=== PATIENT | female | born 1960 | race Caucasian/White ===

== ENCOUNTER → 2018-02-02 17:36 | Outpatient (CLI) | payer MEDICARE, SELFPAY ==
--- NOTE | 2018-02-02 18:15 | MRI_ITS ---
STUDY: MRI LUMBAR SPINE WITHOUT CONTRAST REASON FOR EXAM: Female, 57 years old. Low back pain and left leg pain TECHNIQUE: Standardized fat and water weighted pulse sequences were obtained in the sagittal and axial planes. COMPARISON: 04/15/2017 FINDINGS: T12-L1: Normal endplates. Normal disc height, hydration and morphology. Normal bilateral facet joints. Normal central canal and bilateral lateral recesses. Normal bilateral intervertebral neural foramina. Normal lumbar lordosis. There is no substantial scoliosis. Normal conus medullaris that terminates at the L1 level. L1-2: Normal endplates. Normal disc height, hydration and morphology. Normal bilateral facet joints. Normal central canal and bilateral lateral recesses. Normal bilateral intervertebral neural foramina. L2-3: Normal endplates. Normal disc height, hydration and morphology. Normal bilateral facet joints. Normal central canal and bilateral lateral recesses. Normal bilateral intervertebral neural foramina. L3-4: Disc desiccation. Bulging annulus and bilateral facet and ligamentum flavum hypertrophy with facet joint effusions. Mild central canal stenosis. L4-5: Disc desiccation. Bulging annulus and bilateral facet and ligamentum flavum hypertrophy with facet joint effusions. Mild central canal and moderate bilateral foraminal stenoses, unchanged. L5-S1: Disc desiccation. Bulging annulus and bilateral facet hypertrophy without compressive sequelae. Normal visualized sacral ala. Normal visualized paraspinous soft tissue structures. MRI/Spine Lumbar (Routine) IMPRESSION: Stable multilevel degenerative disc and facet disease. Moderate bilateral foraminal stenoses at the L4-5 level. Electronically Signed: Noé Justice MD at 0:47 EDT Tel , Service support ,
== END ==
PROVIDERS: Family Provider Internal Medicine; PCP Internal Medicine; Visit Provider Anesthesiology Pain Medicine
DX: M54.9 Dorsalgia, unspecified (principal); M79.606 Pain in leg, unspecified
CPT/HCPCS: 72148

== ENCOUNTER 2019-05-06 22:09 | Emergency (ER) | payer MEDICARE, SELFPAY ==
[2019-05-06 22:10] VITALS: BP 115/79; PULSE 77; RESP 14; TEMP 35.8; O2SAT 100; BMI 36.2
--- NOTE | 2019-05-06 23:04 | ED.VIS.LOWEX ---
History of Present Illness Chief Complaint: Lower Extremity Injury Detail of Chief Complaint: lower extremity pain and rash, no injury Informant: Patient Onset: Days - 2 Context: Gradual Onset Timing: Continuous Quality of Pain: - - asymptomatic red rash Location: bilat lower legs Associated Symptoms: Parasthesia - chronic BLE due to neuropathy. Negative for: Weakness, Loss of Funtion Narrative: Patient states she has had gradual development of an asymptomatic red rash in both of her legs that was not there 3 days ago when she saw her doctor at a routine visit. She has a history of peripheral neuropathy in her lower extremities that she thinks may be related to chronic back issues, she is not a diabetic. She was on gabapentin for that, but was getting tired so she decreased the dosing. Within the past multiple weeks, her paresthesias and neuropathic pain have gradually worsened, so at her appointment 3 days ago they decided to go back up on her dosing although she has not done that yet. She states the pain is worse still in the past 2 days but more in her heels. It hurts more to walk and better at rest. She has had no injury. She is on no anticoagulants or aspirin, she used to be anticoagulated for pulmonary embolus remotely. Never had a DVT. No recent injuries. Past Medical History - Allergies and Home Meds Allergies/Adverse Reactions: Allergies latex Allergy (Verified 05/06/19 22:32) Itching Penicillins Allergy (Verified 05/06/19 22:32) Hives Primary Care Physician: Jo-Ann López MD [Primary Care Provider] - Smoking Status: Current every day smoker Review of Systems General: Denies: Chills, Fever, Sweats Eyes: Denies: Visual changes - bilaterally, Diplopia ENT: Denies: Rhinorrhea, Sore throat Cardiovascular: Denies: Chest pain, Palpitations Respiratory: Denies: Dyspnea, Cough, Dyspnea on exertion Gastrointestinal: Denies: Abdominal pain, Nausea, Vomiting, Diarrhea, Melena, Hematochezia Genitourinary: Denies: Dysuria, Hematuria, Frequency Musculoskeletal: Reports: Extremity Pain. Denies: Neck pain, Back pain Skin: Reports: Rash. Denies: Abrasions, Wounds Neurological: Reports: Parasthesia. Denies: Headache, Weakness Hematologic: Denies: Easy bruising, Easy bleeding Physical Exam Vital Signs/Narrative: Vital Signs Temp Pulse Resp BP Pulse Ox 05/06/19 22:10 96.5 F L 77 14 115/79 100 Inital Vital Signs reviewed: Yes - Extremity Exam Right Foot: - - Normal-appearing plantar area. Mild tenderness throughout plantar hindfoot, normal-appearing. Left Foot: - - Normal-appearing plantar area. Mild tenderness throughout plantar hindfoot, normal-appearing. General: Well nourished, Well developed Head: Normocephalic, Atraumatic Eyes: Perrl, EOMI ENT: No Trauma, Moist Mucous Membranes Neck: Nontender, Full ROM Cardiovascular: Regular rate, Regular rhythm, No murmurs Respiratory: No distress, CTA bilaterally, Chest nontender Abdomen: Soft, Nontender, Nondistended, Normal bowel sounds. Negative for: Hepatomegaly, Splenomegaly Back: Nontender Skin: Normal color, No Trauma, Rash - circumfirential band of nontender, nonraised petechiae around both lower legs just above ankles, similar appearing on both legs. no other lesions, no wounds or signs of infection or lymphangitis. Neurological: Alert, Oriented x3, Cranial nerves II-XII grossly intact, Normal Strength, Normal Gait, Parasthesia - distal BLE Psychological: Normal affect, Normal Mood Diagnostic/Tx/Re-eval Laboratory Tests 05/06/19 05/06/19 05/06/19 Range/Units 23:15 23:15 23:15 WBC (4.4-11.0) K/mm3 RBC (4.2-5.4) M/mm3 Hgb (12.0-15.0) g/dl Hct (37-47) % MCV (81-99) fL MCH (27.0-32.0) pg MCHC (32-36) g/gl RDW (11.6-14.6) % RDW Differential (35.1-43.9) fl Plt Count (150-450) K/mm3 MPV (6.2-12.0) fl Immature Gran % (Auto) (0.0-0.9) % Neut % (Auto) (47-70) % Lymph % (Auto) (19-41) % [place] % (Auto) (0-10) % Eos % (Auto) (0-5) % Baso % (Auto) (0-1) % Absolute Neuts (auto) (2.0-7.7) X10^3/uL Absolute Lymphs (auto) (0.83-4.51) X10^3/ul Total Counted ESR 2 (0-30) mm/hr PT 12.8 (11.7-14.9) SECONDS INR 1.0 APTT 28.7 (24.1-36.2) Seconds Sodium 142 (136-145) mmol/L Potassium 3.3 L (3.5-5.1) mmol/L Chloride 115 H (98-107) mmol/L Carbon Dioxide 22.0 (21.0-32.0) mmol/L Anion Gap 5 (5-15) BUN 17 (7-18) mg/dL Creatinine 0.71 (0.55-1.02) mg/dL Estim Creat Clear Calc 68.31 ml/min Est GFR (MDRD) Af Amer 109 (>60) mL/min Est GFR (MDRD) Non-Af 90 (>60) mL/min BUN/Creatinine Ratio 24.0 H (10-20) RATIO Glucose 127 H (74-106) mg/dL Calcium 8.4 L (8.5-10.1) mg/dL Total Bilirubin 0.30 (0.20-1.00) mg/dL AST 16 (15-37) U/L ALT 24 (13-56) U/L Alkaline Phosphatase 62 (45-117) U/L Total Protein 6.3 L (6.4-8.2) g/dL Albumin 3.4 (3.2-5.0) g/dL Globulin 2.9 (2.2-4.2) g/dL Albumin/Globulin Ratio 1.2 (0.9-2.4) RATIO // Range/Units 23:15 WBC 10.0 (4.4-11.0) K/mm3 RBC 3.67 L (4.2-5.4) M/mm3 Hgb 11.4 L (12.0-15.0) g/dl Hct 33.9 L (37-47) % MCV 92.4 (81-99) fL MCH 31.1 (27.0-32.0) pg MCHC 33.6 (32-36) g/gl RDW 13.7 (11.6-14.6) % RDW Differential 45.6 H (35.1-43.9) fl Plt Count 208 (150-450) K/mm3 MPV 10.1 (6.2-12.0) fl Immature Gran % (Auto) 0.200 (0.0-0.9) % Neut % (Auto) 69.1 (47-70) % Lymph % (Auto) 23.2 (19-41) % [place] % (Auto) 4.6 (0-10) % Eos % (Auto) 2.5 (0-5) % Baso % (Auto) 0.4 (0-1) % Absolute Neuts (auto) 6.9 (2.0-7.7) X10^3/uL Absolute Lymphs (auto) 2.33 (0.83-4.51) X10^3/ul Total Counted Not Reportable ESR (0-30) mm/hr PT (11.7-14.9) SECONDS INR APTT (24.1-36.2) Seconds Sodium (136-145) mmol/L Potassium (3.5-5.1) mmol/L Chloride (98-107) mmol/L Carbon Dioxide (21.0-32.0) mmol/L Anion Gap (5-15) BUN (7-18) mg/dL Creatinine (0.55-1.02) mg/dL Estim Creat Clear Calc ml/min Est GFR (MDRD) Af Amer (>60) mL/min Est GFR (MDRD) Non-Af (>60) mL/min BUN/Creatinine Ratio (10-20) RATIO Glucose (74-106) mg/dL Calcium (8.5-10.1) mg/dL Total Bilirubin (0.20-1.00) mg/dL AST (15-37) U/L ALT (13-56) U/L Alkaline Phosphatase (45-117) U/L Total Protein (6.4-8.2) g/dL Albumin (3.2-5.0) g/dL Globulin (2.2-4.2) g/dL Albumin/Globulin Ratio (0.9-2.4) RATIO - Medical Decision Making Given that the rash is petechial, I obtained labs which are reassuring. Her platelets and coags are all normal with platelet count of 208. With detailed history, she has not been wearing any pants or boots/shoes or anything else that would be hugging the affected areas tightly that she can think of. She currently wearing pants with elastic bottoms however they stopped just below her knees where she does not have a rash. Given that these labs were normal I added ESR, it returned at 2, essentially ruling out acute vasculitis. Therefore I do not think prednisone will necessarily help with this. Also, there is no clinical evidence or suspicion or symptoms for that matter, of meningitis. She has no splinter hemorrhages under her nails or Osler's node, she has not used IV drugs. I recommend close outpatient follow-up. She was asking for something for pain for her neuropathic pain. She has had no injury to her heels near normal-appearing and no radiography is necessary. She has no nidus for infection on the bottoms of her feet. I gave her an extra gabapentin dose and she is asking for Toradol, give her a dose and advised that she watch for any worsening of the rash and follow-up and she is comfortable with the plan. ED Disposition - Plan for ED Patient: Disposition: Home or Assisted Living Diagnosis: Petechial rash, Neuropathic pain of both feet Instructions: PETECHIAE (Child), NEUROPATHY, Peripheral Referrals: Jo-Ann López MD [Primary Care Provider] - 3-5 Days if not improving
[2019-05-06] MEDS: Gabapentin 300 MG Capsule PO (23:21)
[2019-05-06 23:25] LABS: Absolute Lymphocyte Count 2.33 X10^3/ul (0.83-4.51); Absolute Neutrophil Count 6.9 X10^3/uL (2.0-7.7); Basophil# 0.04 X10^3/uL; Basophil% 0.4 % (0-1); Eosinophil# 0.25 X10^3/uL; Eosinophils% 2.5 % (0-5); Hematocrit 33.9 % (37-47); Hemoglobin 11.4 g/dl (12.0-15.0); Lymphocyte # 2.33 X10^3/ul (4.0); Lymphocyte % 23.2 % (19-41); Mean Corp Hgb Conc 33.6 g/gl (32-36); Mean Corpuscular Hgb 31.1 pg (27.0-32.0); Mean Corpuscular Volume 92.4 fL (81-99); Mean Platelet Vol. 10.1 fl (6.2-12.0); Monocyte# 0.46 X10^3/uL; Monocyte% 4.6 % (0-10); Neutrophil # 6.94 X10^3/uL (2.7-7.7); Neutrophil % 69.1 % (47-70); Platelet Count 208 K/mm3 (150-450); RBC Distribution Width CV 13.7 % (11.6-14.6); RBC Distribution Width SD 45.6 fl (35.1-43.9); Red Blood Count 3.67 M/mm3 (4.2-5.4)
[2019-05-06 23:26] LABS: POSITIVE COUNT NO; POSITIVE DIFFERENTIAL NO; POSITIVE MORPHOLOGY NO
[2019-05-06 23:32] LABS: Partial Thromboplast Time 28.7 Seconds (24.1-36.2); Prothrombin Time (Protime)PT. 12.8 SECONDS (11.7-14.9)
[2019-05-06 23:42] LABS: ALB/GLOB Ratio 1.2 RATIO (0.9-2.4); AST(SGOT) 16 U/L (15-37); Alanine Aminotransfer ALT/SGPT 24 U/L (13-56); Albumin, Serum 3.4 g/dL (3.2-5.0); Alkaline Phosphatase 62 U/L (45-117); Anion Gap 5 (5-15); BUN 17 mg/dL (7-18); Calcium,Total 8.4 mg/dL (8.5-10.1); Chloride 115 mmol/L (98-107); Creatinine, Serum 0.71 mg/dL (0.55-1.02); EST Glomerular Filtration Rate 90 mL/min (>60); Est Glom Filt Rate - Afr Amer 109 mL/min (>60); Estimated Creatinine Clearance 68.31 ml/min; Globulin 2.9 g/dL (2.2-4.2); Glucose 127 mg/dL (74-106); Potassium 3.3 mmol/L (3.5-5.1); Protein, Total 6.3 g/dL (6.4-8.2); Sodium Level 142 mmol/L (136-145)
[2019-05-06 23:45] LABS: Erythrocyte Sedimentation Rate 2 mm/hr (0-30)
[2019-05-06 23:59] VITALS: BP 112/75; PULSE 74; RESP 18; O2SAT 98
[2019-05-07] MEDS: Ketorolac 60 MG/2 ML Vial IM (00:15)
== END 2019-05-07 00:37 | disposition home or self-care (01) ==
PROVIDERS: Emergency Provider Emergency Medicine; Family Provider Internal Medicine; PCP Internal Medicine
DX: R23.3 Spontaneous ecchymoses (principal); G58.8 Other specified mononeuropathies; G62.9 Polyneuropathy, unspecified; F17.200 Nicotine dependence, unspecified, uncomplicated; Z79.899 Other long term (current) drug therapy
CPT/HCPCS: 80053; 85025; 85610; 85652; 85730; 96372; 99283

== ENCOUNTER 2019-09-16 06:45 | Emergency (ER) | payer OTHER, SELFPAY ==
[2019-09-16 06:45] VITALS: BP 113/57; PULSE 86; RESP 18; TEMP 36.3; O2SAT 97; BMI 35.9
--- NOTE | 2019-09-16 06:53 | RAD_ITS ---
STUDY: X-RAY - RIGHT KNEE REASON FOR EXAM: Joint pain with weightbearing, injury. TECHNIQUE: 4 view(s) of the knee. COMPARISON: None. FINDINGS: Normal visualized distal femur. Normal visualized proximal tibia and fibula. Normal proximal tibiofibular articulation. Normal medial femorotibial compartment. Normal lateral femorotibial compartment. Normal patellofemoral articulation. There is a very small soft tissue calcification anterior to the proximal tibia. RAD/Knee 4 or More Views IMPRESSION: No demonstrated fracture. Electronically Signed: Jos Ball MD at 7:55 EST Tel , Service support ,
--- NOTE | 2019-09-16 06:53 | ED.DCSUM_ITS ---
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 No other injury. Pain radiates to her hip. Able to ambulate after the injury but with pain in her right knee. - Past Medical History (1) Chronic low back pain Status: Chronic (2) recovered alcoholic Status: Chronic Past Medical History - Allergies and Home Meds Allergies/Adverse Reactions: Allergies latex Allergy (Verified 09/16/19 06:56) Itching Penicillins Allergy (Verified 09/16/19 06:56) Hives Primary Care Physician: [facility] [GROUP OF PHYSICIANS] - 2 Days Smoking Status: Current every day smoker Drugs: None Review of Systems Musculoskeletal: Reports: Extremity Pain. Denies: Neck pain, Swelling Skin: Denies: Rash, Wounds Neurological: Denies: Weakness, Numbness Physical Exam Vital Signs/Narrative: Vital Signs Temp Pulse Resp BP Pulse Ox 09/16/19 06:45 97.3 F L 86 18 113/57 L 97 Inital Vital Signs reviewed: Yes - Extremity Exam Right Hip: Negative for: Limited ROM - Full range of motion without any groin pain, no significant tenderness at the ASIS or greater trochanter. Right Knee: Limited ROM - Limited ability to bend at the knee. Mild diffuse swelling, difficult to assess for effusion; no deformity. All ligaments stable with short endpoints and no laxity on stressing including negative anterior and posterior drawer signs. Extensor mechanism is intact. Tender throughout the anterior aspect including the tibial tuberosity and the patella. No significant tenderness at the medial/lateral joint line. Right Ankle: Negative for: Limited ROM - Full range of motion, nontender General: Well nourished, Well developed, - - NAD Head: Normocephalic, Atraumatic Skin: Normal color, No rash, No Trauma - skin intact R knee Neurological: Alert, Oriented x3, Cranial nerves II-XII grossly intact, Normal Strength, Normal Sensation Psychological: Normal affect, Normal Mood Diagnostic/Tx/Re-eval - Medical Decision Making On my interpretation, x-rays are negative for any fracture or acute abnormality. She was given an Herman wrap, Naprosyn, she is ambulatory, and given appropriate work restrictions and follow-up. ED Disposition - Plan for ED Patient: Disposition: Home or Assisted Living Diagnosis: Contusion of right knee Instructions: CONTUSION, Lower Extremity Referrals: [facility] [GROUP OF PHYSICIANS] - 2 Days
[2019-09-16] MEDS: Naproxen 500 MG Tablet PO (06:59)
== END 2019-09-16 08:19 | disposition home or self-care (01) ==
LOC: ED 07:12
PROVIDERS: Emergency Provider Emergency Medicine; Family Provider Internal Medicine; PCP Internal Medicine
DX: S80.01XA Contusion of right knee, initial encounter (principal); M54.5 Low back pain; G89.29 Other chronic pain; Z79.899 Other long term (current) drug therapy; F17.200 Nicotine dependence, unspecified, uncomplicated; W01.0XXA Fall on same level from slipping, tripping and stumbling without subsequent striking against object, initial encounter; Y93.01 Activity, walking, marching and hiking; Y92.89 Other specified places as the place of occurrence of the external cause; Y99.0 Civilian activity done for income or pay
CPT/HCPCS: 73564; 99282

== ENCOUNTER 2019-10-02 09:36 | Emergency (ER) | payer MEDICARE, SELFPAY ==
[2019-10-02 09:38] VITALS: BP 109/66; PULSE 80; RESP 17; TEMP 36.9; O2SAT 96; BMI 34.7
--- NOTE | 2019-10-02 10:06 | ED.VIS.GEN ---
History of Present Illness Chief Complaint: Back Informant: Patient Onset: Days - 3 or 4 days Context: Gradual Onset Timing: Waxes and wanes Current Severity: Moderate Maximum Severity: Moderate Narrative: Patient presents with bilateral lower back pain that radiates around to her groins for the past 3 or 4 days. She denies any known injury. She has had a history of back pain. Patient was concerned that she may have a kidney infection. She does report increased frequency and hazy color to her urine, but no dysuria. She has had no fever or chills. She does have a history of kidney stones. She states she chronically has blood noted in her urine. - Past Medical History (1) Kidney stone Status: Chronic (2) Pulmonary embolism Status: Chronic (3) COPD (chronic obstructive pulmonary disease) Status: Chronic (4) Asthma Status: Chronic (5) Chronic low back pain Status: Chronic Past Medical History - Allergies and Home Meds Allergies/Adverse Reactions: Allergies latex Allergy (Verified 10/02/19 09:37) Itching Penicillins Allergy (Verified 10/02/19 09:37) Hives Primary Care Physician: Jo-Ann López MD [Primary Care Provider] - Prior records reviewed: Yes Smoking Status: Current every day smoker Review of Systems General: Denies: Chills, Fever Eyes: Denies: Visual changes - bilaterally ENT: Denies: Bilateral ear pain Cardiovascular: Denies: Chest pain, Palpitations Respiratory: Denies: Dyspnea, Cough Gastrointestinal: Denies: Abdominal pain, Nausea, Vomiting, Diarrhea Genitourinary: Reports: Frequency Musculoskeletal: Reports: Back pain. Denies: Swelling, Extremity Pain Skin: Denies: Rash Neurological: Denies: Headache Psych: Denies: Depression Hematologic: Denies: Easy bruising Allergy: Denies: Uticaria Physical Exam Vital Signs/Narrative: Vital Signs Temp Pulse Resp BP Pulse Ox 10/02/19 09:38 98.5 F 80 17 109/66 96 Inital Vital Signs reviewed: Yes General: Well nourished, Well developed Head: Normocephalic ENT: Moist mucous membranes Cardiovascular: Regular rate, Regular rhythm Respiratory: No distress, CTA bilaterally Abdomen: Soft, Nontender Back: - - Tenderness in the lumbar paraspinal muscles bilaterally.. Negative for: CVA tenderness Extremities: Nontender Skin: Normal color, No rash Neurological: Alert, Oriented x3, Normal Strength, Normal Sensation Psychological: Normal affect Diagnostic/Tx/Re-eval Laboratory Results 10/02/19 10:13 Urine Color Yellow Urine Clarity Cloudy Urine pH 8.0 Ur Specific [place] 1.010 Urine Protein Negative Urine Glucose (UA) Normal Urine Ketones Negative Urine Occult Blood 50 H Urine Nitrite Negative Urine Bilirubin Negative Urine Urobilinogen Normal Ur Leukocyte Esterase 25 H Urine RBC 0-5 SEEN Urine WBC 0 SEEN Ur Squamous Epith Cells 0 SEEN Amorphous Sediment 2+ Urine Bacteria 0 SEEN Urine Mucus 0 SEEN - Medical Decision Making She was given 1 tab of [place] and Flexeril while here. On repeat evaluation she is resting comfortably. Test results are discussed with her. I do not see significant signs of urinary infection. She will continue her Mobic and will be given a prescription for Flexeril. This will be sent to pharmacy electronically, [facility] in [place]. ED Disposition - Plan for ED Patient: Disposition: Home or Assisted Living Diagnosis: Back pain Instructions: BACK PAIN (Acute or Chronic) Prescriptions: cycloBENZAPRine HCl [Flexeril] 10 mg PO TID PRN #20 tab PRN Reason: Muscle Spasm Transmission Status: Pending to [id number] Referrals: Jo-Ann López MD [Primary Care Provider] - 1 Week if not improving
[2019-10-02] MEDS: cycloBENZAPRine HCl 10 MG Tablet PO (10:15)
[2019-10-02] MEDS: HYDROcodone Bitartrate/Apap 5/325 Tablet PO (10:15)
[2019-10-02 10:20] LABS: Bacteria 0 SEEN /hpf (None Seen); Mucous, Urine 0 SEEN /hpf (<or=2+); Squamous Epithelial Cells - UA 0 SEEN /hpf (5-10); White Blood Cells 0 SEEN /hpf (0-5)
[2019-10-02 10:34] LABS: Color, Urine Yellow (Yellow); Glucose, Dipstick Normal (Normal); Ketone-Dipstick Negative (Negative); Leukocyte Esterase-Dipstick 25 /ul (Negative); Nitrite-Dipstick Negative (Negative); Occult Blood-Urine 50 /ul (Negative); Protein-Dipstick Negative (Negative); Urine Bilirubin Dipstick Negative (Negative); Urine Clarity Cloudy (Clear); Urine Urobilinogen Normal (Normal)
[2019-10-02 10:52] LABS: Amorphous Sediment 2+; Red Blood Cells-Urine 0-5 SEEN /hpf (0-5)
== END 2019-10-02 12:10 | disposition home or self-care (01) ==
PROVIDERS: Emergency Provider Emergency Medicine; Family Provider Internal Medicine; PCP Internal Medicine
DX: M54.5 Low back pain (principal); G89.29 Other chronic pain; J44.9 Chronic obstructive pulmonary disease, unspecified; F17.200 Nicotine dependence, unspecified, uncomplicated; Z87.442 Personal history of urinary calculi; Z86.711 Personal history of pulmonary embolism
CPT/HCPCS: 81001; 99284

== ENCOUNTER → 2019-10-21 08:15 | Outpatient (CLI) | payer OTHER, SELFPAY ==
[2019-10-02 09:38] VITALS: BMI 34.7
--- NOTE | 2019-10-21 08:15 | RAD_ITS ---
STUDY: X-RAY - RIGHT KNEE REASON FOR EXAM: Female, 59 years old. FALL, MEDIAL/ANTERIOR PAIN TECHNIQUE: 4 view(s) of the knee. COMPARISON: None. FINDINGS: Diffuse osteopenia otherwise normal visualized distal femur. Normal visualized proximal tibia and fibula. Normal proximal tibiofibular articulation. There is no demonstrated fracture. There is minimal degenerative arthrosis of the medial femorotibial compartment. Normal lateral femorotibial compartment. There is minimal degenerative arthrosis of the patellofemoral articulation. There is trace amount of joint effusion. The soft tissue structures are unremarkable. RAD/Knee 4 or More Views IMPRESSION: Diffuse osteopenia along with degenerative disease as described above. Trace amount of joint effusion. No acute fracture or subluxation. Electronically Signed: Soraya Hutchinson MD at 0:26 EST , Service support ,
== END ==
PROVIDERS: Family Provider Internal Medicine; PCP Internal Medicine; Referring Provider Physician Assistant; Visit Provider Physician Assistant
DX: S80.00XA Contusion of unspecified knee, initial encounter (principal)
CPT/HCPCS: 73564

== ENCOUNTER → 2019-11-04 06:19 | Outpatient (CLI) | payer OTHER, MEDICARE, SELFPAY ==
[2019-10-21 08:37] VITALS: BMI 34.7
--- NOTE | 2019-11-04 06:40 | MRI_ITS ---
STUDY: MRI RIGHT KNEE REASON FOR EXAM: Female, 59 years old. Injury. Fall. Knee pain. TECHNIQUE: Standardized fat and water weighted pulse sequences were obtained in all 3 orthogonal planes. COMPARISON: X-ray dated 10/21/2019. FINDINGS: Grade 4 cartilage loss at the patellar apex with associated 8 mm osteochondral lesion (axial image 11 series 2). Deep chondral fissure at the lateral patellar facet (axial image 12 series 2). Lateral compartment articular cartilage preserved. Medial compartment grade 3/4 cartilage loss. No acute fracture line. No dislocation. No bone distraction. Anterior proximal tibial bone contusion/edema (sagittal image 9 series 4). Lateral meniscus intact. Medial meniscus intact. Small volume joint effusion. No popliteal cyst. Mild swelling. Trace deep infrapatellar bursitis. Quadriceps tendon septated edema/impingement. Normal medial collateral ligamentous complex (MCL). Normal distal semimembranosus, gracilis and semitendinosus tendons. Normal proximal tibiofibular articulation. Normal lateral collateral (fibular) ligament. Normal popliteus tendon. Normal biceps femoris tendon. Normal anterior cruciate ligament (ACL). Normal posterior cruciate ligament (PCL). Normal medial and lateral patellar retinaculum. Normal quadriceps tendon. Normal patellar tendon. Normal Hoffa''s fat pad. MRI/Lower Ext Joint Only (Routine) IMPRESSION: Patellar apex cartilage loss with osteochondral lesion Lateral patellar facet chondral fissure Medial compartment moderate/severe cartilage loss Anterior proximal tibial bone contusion/edema Quadriceps tendon fat pad edema/impingement Small volume joint effusion, trace deep infrapatellar bursitis and mild swelling Electronically Signed: Israel Gallardo DO at 8:52 EST Tel , Service support ,
== END ==
PROVIDERS: Family Provider Internal Medicine; PCP Internal Medicine; Referring Provider Family Medicine; Visit Provider Family Medicine
DX: S80.01XA Contusion of right knee, initial encounter (principal)
CPT/HCPCS: 73721

== ENCOUNTER 2019-12-06 01:25 | Emergency (ER) | payer MEDICARE, SELFPAY ==
[2019-10-21 08:37] VITALS: BMI 34.7
[2019-12-06 01:26] VITALS: BP 113/59; PULSE 83; RESP 18; TEMP 36.2; O2SAT 98; BMI 38.7
--- NOTE | 2019-12-06 01:54 | ED.VIS.GEN ---
History of Present Illness Chief Complaint: Other, Pain/Inj Narrative: Patient is a 59-year-old female who presents with influenza-like symptoms. She complains of 4 days of neck, neck pain and stiffness, myalgias, sinus pressure and congestion, bilateral ear pressure and otalgia. She does not complain of sore throat, fever, cough, chest pain, shortness of breath, vomiting, diarrhea. Past Medical History - Allergies and Home Meds Allergies/Adverse Reactions: Allergies latex Allergy (Verified 10/02/19 09:37) Itching Penicillins Allergy (Verified 10/02/19 09:37) Hives Primary Care Physician: Jo-Ann López MD [Primary Care Provider] - Past Medical History: - - Asthma Smoking Status: Former smoker Review of Systems All systems negative except as indicated General: Denies: Fever Eyes: Denies: Visual changes - bilaterally ENT: Reports: - - Sinus pressure, otalgia. Denies: Sore throat Cardiovascular: Denies: Chest pain Respiratory: Denies: Dyspnea Gastrointestinal: Denies: Abdominal pain, Nausea, Vomiting, Diarrhea Musculoskeletal: Reports: Myalgias, Arthralgias, Neck pain Skin: Denies: Rash Neurological: Reports: Headache Physical Exam Vital Signs/Narrative: Vital Signs Temp Pulse Resp BP Pulse Ox 12/06/19 01:26 97.2 F L 83 18 113/59 L 98 Inital Vital Signs reviewed: Yes General: Well nourished, Well developed Head: Normocephalic, Atraumatic Eyes: EOMI ENT: Moist mucous membranes Neck: Supple, - - Bilateral paraspinal neck tenderness, no midline tenderness, no nuchal rigidity, no meningeal signs Cardiovascular: Regular rate, Regular rhythm Respiratory: No distress, CTA bilaterally Abdomen: Soft, Nontender Skin: Normal color Neurological: Alert, Oriented x3, Normal Strength, Normal Sensation Psychological: Normal affect Diagnostic/Tx/Re-eval - Medical Decision Making Patient's presentation is most suggestive of influenza or another viral syndrome. She does not have meningeal signs. She has normal vitals. We discussed symptomatic care. Patient was given IM Toradol here and advised on supportive care at home. She is in agreement with this plan. She understands to return for new or worsening symptoms. ED Disposition - Plan for ED Patient: Disposition: Home or Assisted Living Diagnosis: Influenza-like illness Instructions: VIRAL SYNDROME (Adult) Referrals: Jo-Ann López MD [Primary Care Provider] -
[2019-12-06] MEDS: Ketorolac 60 MG/2 ML Vial IM (02:16)
== END 2019-12-06 02:49 | disposition home or self-care (01) ==
LOC: ED 02:05
PROVIDERS: Emergency Provider Emergency Medicine; PCP Internal Medicine; Referring Provider Internal Medicine
DX: J11.1 Influenza due to unidentified influenza virus with other respiratory manifestations (principal); J45.909 Unspecified asthma, uncomplicated; Z87.891 Personal history of nicotine dependence
CPT/HCPCS: 96372; 99282

== ENCOUNTER 2019-12-30 22:28 | Emergency (ER) | payer MEDICARE, SELFPAY ==
[2019-12-30 22:29] VITALS: BP 122/67; PULSE 87; RESP 18; TEMP 37.1; O2SAT 98; BMI 36.8
[2019-12-30] MEDS: Famotidine 200 MG/20 ML MDV 20 MG in 0.9% Normal Saline (Pres. free 8 ML 300 MG IV (23:14)
[2019-12-30] MEDS: Ondansetron 4 MG/2 ML Vial IV (23:15)
[2019-12-30 23:16] LABS: Absolute Lymphocyte Count 2.06 X10^3/uL (0.83-4.51); Absolute Neutrophil Count 2.7 X10^3/uL (2.0-7.7); Basophil# 0.03 X10^3/uL; Basophil% 0.6 % (0-1); Eosinophil# 0.15 X10^3/uL; Eosinophils% 2.8 % (0-5); Hematocrit 37.7 % (37-47); Lymphocyte # 2.06 X10^3/ul (4.0); Lymphocyte % 38.5 % (19-41); Mean Corp Hgb Conc 31.8 g/dL (32-36); Mean Corpuscular Hgb 29.3 pg (27.0-32.0); Mean Platelet Vol. 9.8 fl (6.2-12.0); Monocyte# 0.39 X10^3/uL; Monocyte% 7.3 % (0-10); NRBC Flagged by Analyzer 0 % (0-5); Neutrophil # 2.71 X10^3/uL (2.7-7.7); Neutrophil % 50.6 % (47-70); Platelet Count 201 K/mm3 (150-450); RBC Distribution Width CV 13.1 % (11.6-14.6); RBC Distribution Width SD 43.6 fl (35.1-43.9); White Blood Count 5.4 K/mm3 (4.4-11.0)
[2019-12-30] MEDS: Mag Hydrox/Al Hydrox/Simeth 30 ML UDC PO (23:16)
[2019-12-30] MEDS: 0.9% Normal Saline 1,000 ML 1000 ML IV (23:17)
--- NOTE | 2019-12-30 23:17 | ED.VIS.GI ---
History of Present Illness Chief Complaint: General Illness Narrative: Patient presenting secondary to a GI illness. Patient reports that over the last 4 to 5 days she has been having vomiting and diarrhea. She reports that she has had 3-4 episodes of vomiting per day, and 5-6 episodes of loose watery nonbloody non-mucousy diarrhea. She reports that she has been having body aches and subjective fevers. Today when she was vomiting she reports that she had a small amount of blood in her emesis. Patient denies any abdominal pain. She denies any sore throat cough. She denies any sick contacts, travel, recent antibiotic exposures or admissions to the hospital. Review of systems otherwise negative. Past Medical History - Allergies and Home Meds Allergies/Adverse Reactions: Allergies latex Allergy (Verified 12/30/19 22:28) Itching Penicillins Allergy (Verified 12/30/19 22:28) Hives Primary Care Physician: Jo-Ann López MD [Primary Care Provider] - Past Medical History: - - COPD, osteoarthritis Smoking Status: Former smoker Review of Systems All systems negative except as indicated General: Reports: Fever, Malaise Eyes: Denies: Visual changes - bilaterally, Diplopia ENT: Denies: Rhinorrhea, Sore throat Cardiovascular: Denies: Chest pain, Palpitations Respiratory: Denies: Dyspnea, Cough, Dyspnea on exertion Gastrointestinal: Reports: Nausea, Vomiting, Diarrhea Genitourinary: Denies: Dysuria, Hematuria, Frequency Musculoskeletal: Denies: Back pain, Extremity Pain Skin: Denies: Rash, Wounds Neurological: Denies: Headache, Weakness, Numbness Physical Exam Vital Signs/Narrative: Vital Signs Temp Pulse Resp BP Pulse Ox 12/30/19 22:29 98.8 F 87 18 122/67 H 98 Inital Vital Signs reviewed: Yes General: Well nourished, Well developed, No Acute Distress Head: Normocephalic, Atraumatic Eyes: Perrl, EOMI ENT: Moist mucous membranes, No rhinorrhea Neck: Supple, Nontender Cardiovascular: Regular rate, Regular rhythm, No murmurs Respiratory: No distress, CTA bilaterally, Chest nontender Abdomen: Soft, Nontender, Nondistended, Normal bowel sounds Back: Nontender, Normal Inspection Extremities: Nontender, No edema Skin: Normal color, No rash Neurological: Alert, Oriented x3, Cranial nerves II-XII grossly intact, Normal Strength, Normal Sensation Psychological: Normal affect, Normal Mood Diagnostic/Tx/Re-eval - Medical Decision Making Patient presented with a GI illness and concerns for some mild hematemesis. Patient was given Pepcid Zofran GI cocktail and fluids. CBC CMP lipase found to all be unremarkable with no evidence of electrolyte dyscrasias. Repeat evaluation showed the patient have symptomatic improvement. Patient likely has a prolonged GI illness at this point, I believe that she is still appropriate for discharge. She will be sent home with symptomatic treatment and expectant management instructions. Patient was discharged in stable condition. ED Disposition - Plan for ED Patient: Disposition: Home or Assisted Living Diagnosis: Gastritis Instructions: GASTRITIS (Adult) Prescriptions: Ondansetron [Zofran Odt] 4 mg PO Q8H PRN PRN #10 tab PRN Reason: Nausea Prescription Printed Referrals: Jo-Ann López MD [Primary Care Provider] - 3-5 Days if not improving
[2019-12-30 23:36] LABS: ALB/GLOB Ratio 1.1 RATIO (0.9-2.4); AST(SGOT) 19 U/L (15-37); Alanine Aminotransfer ALT/SGPT 33 U/L (13-56); Albumin, Serum 3.3 g/dL (3.2-5.0); Alkaline Phosphatase 65 U/L (45-117); Anion Gap 6 (5-15); BUN 16 mg/dL (7-18); BUN/Creat Ratio 17.7 RATIO (10-20); Calcium,Total 8.6 mg/dL (8.5-10.1); Chloride 113 mmol/L (98-107); EST Glomerular Filtration Rate 68 mL/min (>60); Est Glom Filt Rate - Afr Amer 82 mL/min (>60); Estimated Creatinine Clearance 55.68 ml/min; Globulin 3.1 g/dL (2.2-4.2); Glucose 95 mg/dL (74-106); Lipase 42 U/L (73-393); Potassium 3.6 mmol/L (3.5-5.1); Protein, Total 6.4 g/dL (6.4-8.2); Sodium Level 143 mmol/L (136-145)
[2019-12-31 00:39] VITALS: BP 115/78; PULSE 78; RESP 16; O2SAT 100
== END 2019-12-31 00:42 | disposition home or self-care (01) ==
PROVIDERS: Emergency Provider Emergency Medicine; PCP Internal Medicine
DX: K29.70 Gastritis, unspecified, without bleeding (principal); M19.90 Unspecified osteoarthritis, unspecified site; J44.9 Chronic obstructive pulmonary disease, unspecified; Z87.891 Personal history of nicotine dependence; Z79.1 Long term (current) use of non-steroidal anti-inflammatories (NSAID); Z79.51 Long term (current) use of inhaled steroids
CPT/HCPCS: 80053; 83690; 85025; 96361; 96374; 99284; J7030; A4216; J2405; J3490

== ENCOUNTER 2020-03-16 23:11 | Emergency (ER) | payer OTHER, MEDICARE, SELFPAY ==
[2020-03-16 23:11] VITALS: BP 141/60; PULSE 90; RESP 18; TEMP 36.8; O2SAT 98; BMI 36.6
--- NOTE | 2020-03-16 23:27 | ED.VIS.GEN ---
History of Present Illness Chief Complaint: Fall Informant: Patient Onset: Today Current Severity: Moderate Maximum Severity: Moderate Narrative: Patient presents after a fall at work tonight. 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 She states that wrapped around her ankle and tripped her. She fell forward landing on all fours. She is complaining of pain to both upper extremities, left knee, and over her sternum. She denies striking her head. She has not taken anything for pain. - Past Medical History (1) Asthma Status: Chronic (2) COPD (chronic obstructive pulmonary disease) Status: Chronic (3) Kidney stone Status: Chronic (4) Pulmonary embolism Status: Chronic Past Medical History - Allergies and Home Meds Allergies/Adverse Reactions: Allergies latex Allergy (Verified 03/16/20 23:14) Itching Penicillins Allergy (Verified 03/16/20 23:14) Hives Primary Care Physician: Jo-Ann López MD [Primary Care Provider] - Prior records reviewed: Yes Smoking Status: Former smoker Review of Systems General: Denies: Chills, Fever Eyes: Denies: Visual changes - bilaterally ENT: Denies: Bilateral ear pain Cardiovascular: Reports: Chest pain Respiratory: Denies: Dyspnea, Cough Gastrointestinal: Denies: Abdominal pain, Nausea, Vomiting, Diarrhea Genitourinary: Denies: Dysuria Musculoskeletal: Reports: Extremity Pain Skin: Reports: Rash Neurological: Denies: Headache Hematologic: Denies: Easy bruising, Easy bleeding Allergy: Denies: Uticaria Physical Exam Vital Signs/Narrative: Vital Signs Temp Pulse Resp BP Pulse Ox 03/16/20 23:11 98.3 F 90 18 141/60 H 98 Inital Vital Signs reviewed: Yes General: Well nourished, Well developed Head: Normocephalic ENT: Moist mucous membranes Neck: Supple, - - No C-spine tenderness. Cardiovascular: Regular rate, Regular rhythm Respiratory: No distress, CTA bilaterally, Chest tenderness - Reproducible chest tenderness of the lower sternum. Abdomen: Soft, Nontender Extremities: - - Mild muscular tenderness of the bilateral hands and upper humerus/shoulders. No obvious deformity. Good range of motion. Strong distal pulses. Tenderness palpation of the anterior left knee. Good range of motion. Strong distal pulses. Neurological: Alert, Oriented x3, Normal Strength, Normal Sensation Psychological: Normal affect Diagnostic/Tx/Re-eval Impressions Chest X-Ray 03/17/20 23:26 IMPRESSION: No acute cardiopulmonary disease. Electronically Signed: Soraya Hutchinson MD at 1:08 EDT , Service support , Hand X-Ray 03/17/20 23:26 IMPRESSION: Mild degenerative disease at the level of the hand with no acute fracture or subluxation. Electronically Signed: Soraya Hutchinson MD at 1:07 EDT , Service support , Knee X-Ray 03/17/20 23:26 IMPRESSION: Status postoperative changes as described. Mild degenerative disease with no acute fracture or subluxation. Trace amount of joint fluid. Electronically Signed: Soraya Hutchinson MD at 1:33 EDT , Service support , Shoulder X-Ray 03/17/20 23:26 IMPRESSION: Diffuse osteopenia along with mild degenerative disease. Otherwise normal x-ray examination of the shoulder. Electronically Signed: Soraya Hutchinson MD at 1:32 EDT , Service support , 03/17/20 23:25 Hand Min 3 Views [RAD] Stat 03/17/20 23:26 Chest PA and Lateral [RAD] Stat Hand Min 3 Views [RAD] Stat Knee 4 or More Views [RAD] Stat Shoulder min 2 Views [RAD] Stat Shoulder min 2 Views [RAD] Stat - Medical Decision Making Patient was given naproxen for pain. X-ray results are discussed with her. She is given work restrictions and is to follow-up with her [employer] [employer]. ED Disposition - Plan for ED Patient: Disposition: Home or Assisted Living Diagnosis: Chest wall contusion, Contusion, upper extremity, Contusion of left knee, Fall Instructions: ED EXTREMITY CONTUSION Lower, ED EXTREMITY CONTUSION Upper, ED Mechanical Fall, ED CHEST CONTUSION Prescriptions: Naproxen [Naprosyn] 500 mg PO BID PRN PRN #20 tab PRN Reason: Pain Score 4-10/10 Transmission Status: Pending to [facility] Referrals: [facility] [GROUP OF PHYSICIANS] - 2 Days
[2020-03-17] MEDS: Naproxen 500 MG Tablet PO (00:58)
[2020-03-17 01:53] VITALS: BP 146/86; PULSE 76; RESP 16; O2SAT 98
--- NOTE | 2020-03-17 23:25 | RAD_ITS ---
STUDY: X-RAY - LEFT HAND REASON FOR EXAM: Female, 59 years old. Tripped and fell on concrete. Pain hands, chest and knee. Hx of asthma, COPD and basal cell carcinoma TECHNIQUE: 3 view(s) of the hand. COMPARISON: None. FINDINGS: Diffuse osteopenia with mild degenerative disease of the radiocarpal articulation. Normal distal radioulnar joint. Normal visualized carpal bones. Normal carpal articulations Normal carpometacarpal articulation of the thumb. Normal second through fifth carpometacarpal joints. Normal metacarpi. There is mild degenerative arthrosis of the metacarpophalangeal (MCP) joints. Minimal degenerative disease of the interphalangeal joint of the thumb. Normal proximal and distal phalanges of the thumb. Normal metacarpophalangeal joints of the second through fifth fingers. Narrowing of the distal interphalangeal joints of the second through fifth fingers. Normal phalanges of the second through fifth fingers. The soft tissue structures are unremarkable. RAD/Hand Min 3 Views IMPRESSION: Diffuse osteopenia along with mild degenerative disease as described. No acute fracture or subluxation. Electronically Signed: Soraya Hutchinson MD at 1:07 EDT , Service support ,
--- NOTE | 2020-03-17 23:26 | RAD_ITS ---
STUDY: X-RAY - RIGHT HAND REASON FOR EXAM: Female, 59 years old. Tripped and fell on concrete. Pain hands, chest and knee. Hx of asthma, COPD and basal cell carcinoma TECHNIQUE: 3 view(s) of the hand. COMPARISON: None. FINDINGS: Diffuse osteopenia otherwise normal radiocarpal articulation. Normal distal radioulnar joint. Normal visualized carpal bones. Normal carpal articulations Normal carpometacarpal articulation of the thumb. Normal second through fifth carpometacarpal joints. Normal metacarpi. There is mild degenerative arthrosis of the metacarpophalangeal (MCP) joints. There is degenerative arthrosis of the interphalangeal joint of the thumb with articular joint space narrowing. Normal proximal and distal phalanges of the thumb. Normal metacarpophalangeal joints of the second through fifth fingers. Narrowing of the distal interphalangeal joints of the second through fifth fingers. Normal phalanges of the second through fifth fingers. The soft tissue structures are unremarkable. RAD/Hand Min 3 Views IMPRESSION: Mild degenerative disease at the level of the hand with no acute fracture or subluxation. Electronically Signed: Soraya Hutchinson MD at 1:07 EDT , Service support ,
--- NOTE | 2020-03-17 23:26 | RAD_ITS ---
STUDY: X-RAY - RIGHT SHOULDER REASON FOR EXAM: Female, 59 years old. Tripped and fell on concrete. Pain hands, chest and knee. Hx of asthma, COPD and basal cell carcinoma TECHNIQUE: 4 view(s) of the shoulder. COMPARISON: None. FINDINGS: There is mild degenerative arthrosis of the glenohumeral articulation. Normal acromioclavicular joint. Normal acromion. There is demineralization of the humerus and visualized osseous structures. The soft tissue structures are unremarkable. There is no demonstrated fracture. Normal visualized pulmonary apex. RAD/Shoulder min 2 Views IMPRESSION: Diffuse osteopenia along with mild degenerative disease. No acute fracture or subluxation. Electronically Signed: Soraya Hutchinson MD at 1:25 EDT , Service support ,
--- NOTE | 2020-03-17 23:26 | RAD_ITS ---
STUDY: X-RAY - LEFT KNEE REASON FOR EXAM: Female, 59 years old. Tripped and fell on concrete. Pain hands, chest and knee. Hx of asthma, COPD and basal cell carcinoma TECHNIQUE: 4 view(s) of the knee. COMPARISON: None. FINDINGS: Diffuse osteopenia otherwise normal visualized distal femur. Postoperative changes fixation screw through the lateral tibial plateau. Otherwise normal visualized proximal tibia. Status post resection of the upper aspect of the fibula otherwise visualized fibula is intact. No acute fracture seen. There is mild degenerative arthrosis of the medial femorotibial compartment. Normal lateral femorotibial compartment. There is mild to moderate degenerative arthrosis of the patellofemoral articulation. Trace amount of joint fluid. The soft tissue structures are unremarkable. RAD/Knee 4 or More Views IMPRESSION: Status postoperative changes as described. Mild degenerative disease with no acute fracture or subluxation. Trace amount of joint fluid. Electronically Signed: Soraya Hutchinson MD at 1:33 EDT , Service support ,
--- NOTE | 2020-03-17 23:26 | RAD_ITS ---
STUDY: X-RAY CHEST REASON FOR EXAM: Female, 59 years old. Tripped and fell on concrete. Pain hands, chest and knee. Hx of asthma, COPD and basal cell carcinoma TECHNIQUE: PA and lateral views of the chest. COMPARISON: 03/22/2016. FINDINGS: The lungs are normally expanded with the nonspecific mild fullness of markings in the right infrahilar region, stable and most likely related to confluence of markings. Otherwise lung murrell are clear. There is no demonstrated pleural abnormality. Normal size heart. Normal mediastinum and marissa. Normal visualized pulmonary arteries. Normal visualized aortic arch and descending thoracic aorta. There are diffuse degenerative changes of the visualized thoracic spine. There is degenerative osteoarthritis of the bilateral shoulders. There is no demonstrated abnormality of the visualized soft tissue structures of the upper abdomen. RAD/Chest PA and Lateral IMPRESSION: No acute cardiopulmonary disease. Electronically Signed: Soraya Hutchinson MD at 1:08 EDT , Service support ,
--- NOTE | 2020-03-17 23:26 | RAD_ITS ---
STUDY: X-RAY - LEFT SHOULDER REASON FOR EXAM: Female, 59 years old. Tripped and fell on concrete. Pain hands, chest and knee. Hx of asthma, COPD and basal cell carcinoma TECHNIQUE: 2 view(s) of the shoulder. COMPARISON: None. FINDINGS: There is mild degenerative arthrosis of the glenohumeral articulation. Normal acromioclavicular joint. Normal acromion. Normal humeral head and visualized proximal humerus. The soft tissue structures are unremarkable. There is no demonstrated fracture. Normal visualized pulmonary apex. RAD/Shoulder min 2 Views IMPRESSION: Diffuse osteopenia along with mild degenerative disease. Otherwise normal x-ray examination of the shoulder. Electronically Signed: Soraya Hutchinson MD at 1:32 EDT , Service support ,
== END 2020-03-17 01:53 | disposition home or self-care (01) ==
PROVIDERS: Emergency Provider Emergency Medicine; PCP Internal Medicine
DX: S20.219A Contusion of unspecified front wall of thorax, initial encounter (principal); S80.02XA Contusion of left knee, initial encounter; S40.022A Contusion of left upper arm, initial encounter; S40.021A Contusion of right upper arm, initial encounter; J44.9 Chronic obstructive pulmonary disease, unspecified; Z86.711 Personal history of pulmonary embolism; Z87.442 Personal history of urinary calculi; Z87.891 Personal history of nicotine dependence; W18.09XA Striking against other object with subsequent fall, initial encounter; Y93.01 Activity, walking, marching and hiking; Y92.89 Other specified places as the place of occurrence of the external cause; Y99.0 Civilian activity done for income or pay
CPT/HCPCS: 71046; 73030; 73130; 73564; 99283

== ENCOUNTER 2020-03-21 03:48 | Emergency (ER) | payer OTHER, SELFPAY ==
[2020-03-19 12:51] VITALS: BMI 36.6
[2020-03-21 03:50] VITALS: BP 126/60; PULSE 97; RESP 18; TEMP 36.6; O2SAT 99; BMI 36.6
--- NOTE | 2020-03-21 04:10 | ED.VIS.GEN ---
History of Present Illness Chief Complaint: Fall Informant: Patient Onset: Days - 4 Context: Sudden Onset Timing: Continuous Quality: sore/ache Location: left upper chest/anterior axilla Current Severity: Severe Maximum Severity: Severe Worsened by: moving LUE Relieved by: remaining still Associated Symptoms: LUE pain. none other. Narrative: Patient had a fall at work, she was seen here just afterwards about 4 days ago, she returns for persistent significant discomfort. She has no new symptoms. She describes to me her foot getting tangled up in some plastic wrapping that goes around stacks of cardboard, causing her to fall forward to the ground catching herself with her hands and her left knee. Her left knee was x-rayed and negative for fracture, she states that is not bothering her anymore and doing better. X-rays of the chest and left upper extremity were all negative. She states that the main issue is her left upper chest. It is limiting movement of the shoulder girdle because of pain, sitting up and forward makes it hurt. She does not have any shortness of breath or pleuritic discomfort that is major. She denies any new symptoms. She saw her PCP, but she has not followed up with [facility]. - Past Medical History (1) Asthma Status: Chronic (2) COPD (chronic obstructive pulmonary disease) Status: Chronic (3) Chronic low back pain Status: Chronic (4) Kidney stone Status: Chronic (5) Pulmonary embolism Status: Chronic (6) recovered alcoholic Status: Chronic (7) Lymphedema Status: Chronic (8) Mitral valve prolapse Status: Chronic Past Medical History - Allergies and Home Meds Allergies/Adverse Reactions: Allergies latex Allergy (Verified 03/21/20 03:49) Itching Penicillins Allergy (Verified 03/21/20 03:49) Hives Primary Care Physician: Jo-Ann López MD [Primary Care Provider] - Smoking Status: Former smoker Review of Systems General: Denies: Chills, Fever, Sweats Eyes: Denies: Visual changes - bilaterally, Diplopia ENT: Denies: Rhinorrhea, Sore throat Cardiovascular: Reports: Chest pain. Denies: Palpitations Respiratory: Denies: Dyspnea, Cough, Dyspnea on exertion Gastrointestinal: Denies: Abdominal pain, Nausea, Vomiting, Diarrhea, Melena, Hematochezia Genitourinary: Denies: Dysuria, Hematuria, Frequency Musculoskeletal: Reports: Back pain - Chronic, mild, unchanged, Swelling - Chronic both legs, unchanged, Extremity Pain. Denies: Neck pain Skin: Denies: Rash, Wounds Neurological: Denies: Headache, Weakness, Numbness Physical Exam Vital Signs/Narrative: Vital Signs Temp Pulse Resp BP Pulse Ox 03/21/20 03:50 97.8 F 97 18 126/60 H 99 Inital Vital Signs reviewed: Yes General: Well nourished, Well developed, Obese, No Acute Distress Head: Normocephalic, Atraumatic Eyes: Perrl, EOMI ENT: Moist mucous membranes, No rhinorrhea Neck: Supple, Nontender Cardiovascular: Regular rate, Regular rhythm, No murmurs. Negative for: Tachycardia Respiratory: No distress, CTA bilaterally, Chest tenderness - Left upper chest, fairly superficially. Normal skin exam. Also tender into the anterior aspect of the axilla, basically at the tendon of the pectoral musculature. Abdomen: Soft, Nontender, Nondistended, Normal bowel sounds Extremities: Nontender - With regard to the left upper extremity, has limited abduction of the left shoulder due to pain in the chest wall, however there is no bony tenderness of the left upper extremity at this time, no subacromial tenderness, no posterior arm/shoulder tenderness including the teres musculature. No clavicle or acromioclavicular joint tenderness. Skin: Normal color, No rash, No Trauma Neurological: Alert, Oriented x3, Cranial nerves II-XII grossly intact, Normal Strength, Normal Sensation, Normal Gait Psychological: Normal affect, Normal Mood Diagnostic/Tx/Re-eval - Medical Decision Making I reviewed the x-ray reports from her imaging 4 days ago. I do not think there is any reason to repeat this imaging. She wants to know if she tore a muscle. As I discussed with her, since she did not sustain a broken wrist or radial head or elbow dislocation or shoulder bony injury, all of which would be more likely to occur then a pectoral muscular tear, I suspect the answer is no but that is certainly in the differential diagnosis generally speaking. I do not have the ability to do a stat MRI for this reason however. I do not think a CT is indicated for any reason. Certainly consistent with muscular pain, strain versus tear are certainly possibilities. I would not expect her pain to be gone by now it is only been 4 days. I discussed that with her, I would recommend supportive care at this time. She does not splint on deep inspiration so I do not think she has a pneumothorax or any internal injury. She is given Norflex, Toradol, tramadol, a short prescription for tramadol and advised to follow-up with [facility]. ED Disposition - Plan for ED Patient: Disposition: Home or Assisted Living Diagnosis: Injury of muscle of chest wall Instructions: Treating?Strains and Sprains Prescriptions: traMADol [Ultram] 50 mg PO Q4H PRN PRN 2 Days #12 tablet PRN Reason: Pain Transmission Status: Received by [facility] Referrals: Jo-Ann López MD [Primary Care Provider] - [facility] [GROUP OF PHYSICIANS] - As soon as possible (call for appt)
[2020-03-21] MEDS: traMADol 50 MG Tablet PO (04:18)
[2020-03-21] MEDS: Orphenadrine 60 MG/2 ML Ampul IM (04:19)
[2020-03-21] MEDS: Ketorolac 30 MG/ML Syringe IM (04:19)
== END 2020-03-21 04:43 | disposition home or self-care (01) ==
LOC: ED 04:28
PROVIDERS: Emergency Provider Emergency Medicine; PCP Internal Medicine
DX: S29.9XXA Unspecified injury of thorax, initial encounter (principal); W18.30XA Fall on same level, unspecified, initial encounter; J44.9 Chronic obstructive pulmonary disease, unspecified; G89.29 Other chronic pain; M54.9 Dorsalgia, unspecified; F10.21 Alcohol dependence, in remission; Z87.891 Personal history of nicotine dependence; Z86.711 Personal history of pulmonary embolism; Z87.442 Personal history of urinary calculi; Z79.899 Other long term (current) drug therapy
CPT/HCPCS: 96372; 99283

== ENCOUNTER 2020-03-28 06:11 | Emergency (ER) | payer OTHER, MEDICARE, SELFPAY ==
[2020-03-27 12:51] VITALS: BMI 36.6
[2020-03-28 06:12] VITALS: BP 123/76; PULSE 96; RESP 16; TEMP 36.5; O2SAT 99; BMI 268.2
--- NOTE | 2020-03-28 06:26 | ED.DCSUM_ITS ---
History of Present Illness Chief Complaint: Upper Extremity Injury Narrative: Patient is a 59-year-old female who had a fall almost 2 weeks ago. She fell onto outstretched arms. She has been seen multiple times in the emergency department and at the urgent care by [facility]. She has had previous x- rays. She has been treated with naproxen, tramadol, Flexeril. She continues to have pain in her left shoulder. She actually is scheduled for an MRI on . She states she was seen yesterday and discussed that her pain was not adequately controlled and had asked for a shot of Toradol but they were unable to do so there. She was told if her pain continued to be reevaluated here in the emergency department. She denies numbness tingling or weakness. She denies medical history such as diabetes hypertension hyperlipidemia. Past Medical History - Allergies and Home Meds Allergies/Adverse Reactions: Allergies latex Allergy (Verified 03/28/20 06:16) Itching Penicillins Allergy (Verified 03/28/20 06:16) Hives Primary Care Physician: Jo-Ann López MD [Primary Care Provider] - Past Medical History: None Smoking Status: Never smoker Review of Systems All systems negative except as indicated General: Denies: Fever Eyes: Denies: Visual changes - bilaterally ENT: Denies: Bilateral ear pain Cardiovascular: Denies: Chest pain Respiratory: Denies: Dyspnea Gastrointestinal: Denies: Abdominal pain Musculoskeletal: Reports: Extremity Pain Skin: Denies: Rash Neurological: Denies: Headache Hematologic: Denies: Easy bleeding Allergy: Denies: Uticaria Physical Exam Vital Signs/Narrative: Vital Signs Temp Pulse Resp BP Pulse Ox 03/28/20 06:12 97.7 F L 96 16 123/76 H 99 Inital Vital Signs reviewed: Yes General: Well nourished Head: Normocephalic Eyes: EOMI ENT: Moist mucous membranes Neck: Supple Cardiovascular: Regular rate Respiratory: No distress Abdomen: Soft Extremities: - - Left upper extremity is in sling she has normal sensation in the hands she does have some tenderness along the anterior left shoulder no deformity Skin: Normal color Neurological: Alert Psychological: Normal affect Diagnostic/Tx/Re-eval - Medical Decision Making Patient has been evaluated multiple times for her left shoulder pain and is scheduled for an MRI for further evaluation. She states she is really just here for pain control and was requesting Toradol stating I am not here for drugs or anything like that. She was given intramuscular Toradol and discharged. ED Disposition - Plan for ED Patient: Disposition: Home or Assisted Living Diagnosis: Left shoulder pain Instructions: ED Shoulder Pain Uncertain Cause Referrals: Jo-Ann López MD [Primary Care Provider] -
[2020-03-28] MEDS: Ketorolac 60 MG/2 ML Vial IM (06:32)
[2020-03-28 06:51] VITALS: BP 134/83; PULSE 77; RESP 18; O2SAT 98
== END 2020-03-28 07:04 | disposition home or self-care (01) ==
LOC: ED 07:03
PROVIDERS: Emergency Provider Emergency Medicine; PCP Internal Medicine
DX: M25.512 Pain in left shoulder (principal)
CPT/HCPCS: 96372; 99282

== ENCOUNTER → 2020-03-29 | Outpatient (CLI) | payer OTHER, SELFPAY ==
[2020-03-22 07:22] VITALS: BMI 36.6
[2020-03-28 06:12] VITALS: BMI 268.2
--- NOTE | 2020-03-29 06:40 | MRI_ITS ---
STUDY: MRI LEFT SHOULDER REASON FOR EXAM: Shoulder pain after a fall 03/16/2020. TECHNIQUE: Standardized fat and water weighted pulse sequences were obtained in all 3 orthogonal planes. COMPARISON: Radiographs 03/17/2020. FINDINGS: There is mild supraspinatus tendinosis (T2 coronal images 7, 8) without discrete tendon tear. Normal infraspinatus tendon. There is mild subscapularis tendinosis (proton density axial image 12) without discrete tendon tear. Normal teres minor tendon. Normal supraspinatus muscle. Normal infraspinatus muscle. Normal subscapularis muscle. Normal teres minor muscle. There is subchondral cystic change of the glenoid (T2 coronal images 10-12). Normal humeral head and visualized proximal humerus. Normal biceps labral complex. Normal intracapsular long biceps tendon. There is a minimal volume of fluid in the bicipital tendon sheath. Normal labrum. Normal capsulo- ligamentous complex. There is acromioclavicular arthrosis with hypertrophic changes effacing the subacromial fat (T2 sagittal image 5). There is a Type II morphology (curved), with a neutral orientation. There is a very small volume of subacromial-subdeltoid bursal fluid (T2 coronal images 11, 12). Normal visualized coracohumeral and coracoacromial ligaments. Normal deltoid muscle. Normal trapezius muscle. MRI/Upper Ext Joint Only(Routine) IMPRESSION: Mild supraspinatus and subscapularis tendinosis without demonstrated rotator cuff tear. Acromioclavicular arthrosis. Very mild subacromial-subdeltoid bursitis. Electronically Signed: Jos Ball MD at 9:04 EDT Tel , Service support ,
== END | disposition home or self-care (01) ==
PROVIDERS: PCP Internal Medicine; Referring Provider Physician Assistant; Visit Provider Physician Assistant
DX: S40.029A Contusion of unspecified upper arm, initial encounter (principal); S20.219A Contusion of unspecified front wall of thorax, initial encounter
CPT/HCPCS: 73221

== ENCOUNTER 2020-04-25 07:00 | Outpatient (RCR) | payer OTHER, MEDICARE, SELFPAY ==
[2020-03-29 10:57] VITALS: BMI 268.2
--- NOTE | 2020-04-03 09:51 | HP.PTEVAL_ITS ---
Patient's Visit Information AMADA MARSHALL is a 59 year old F referred to Physical Therapy by RENEE Dodd with a diagnosis of CONTUSION OF UNSPECIFIED UPPER ARM,CONTUSION OF FRONT WALL THORAX. Date of Evaluation: 04/03/20 Physical Therapist: Pablo Krause, PT, Cert MDT, OCS - Visit Plan Frequency: 3x /Week Duration: 4 Weeks Plan: PT INTERVENTIONS MODALITIES FOR PAIN RELEIVE,GRADED POSTURAL EX'S ,BUE STENGTGHENING -SHOULDERS-ELBOWS AND WRIST - Subjective This 59 y/o female presents physical therapy with contsion upper arm and front wall of thorax. Patient injured at work on 03/16/20 tripped on band from [employer] boxes feel on outstretch arms shoulders left >right had immedediate in arms chest -sternum. Patient went [facility] had multiple x-rays of hands,knees,chest and shoulders which was negative. Patient was provided with na prozyn. Then return 2 days later due to pain did 2 injections and tramadol for pain. [facility]en [facility] also had MRI shoulder -. Patient return to hospital had injection toradol. [facility] provided predisone and recommended.Location pain located elbow-wrist forearms,sternum.,left shoulder . C/O parathesia fingers. Denies today dizzniess,NIELSEN,intially had dizziness. Pain affects sleeping. Aggraveting factors lifting with arms,opening can affects housework tasks and ability to perform job demands. 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 Patient symptoms affects QOL. SOCIAL: . VOCATION: [employer] - Pain Bilateral Elbow Pain Intensity (Out of 10): 5 Pain Intensity Range: 10 Left Shoulder Pain Intensity (Out of 10): 5 Pain Intensity Range: 10 - Objective POSTURE: mild foward posture. PALAPTION: tender bilateral lateral elbow - epicondyle,left -shoulder. CLEANING VALIDATION CONSULTANT STRENGTH : 20# dynamoter. NEURO: intact ,denies parathesia/tingling,reflexes C5-6-7. AROM: shoulder ,elbow ,wrist WFL. CERVICAL ROM: flexion ,extension ,rotation min loss,lateral flexion min loss. MMT: bilateral RTC 4/5 except supraspinatous,biceps /triceps 4-/5,wrist flexors/extensors 4-/5 - Special Tests R Shoulder External Rotation Lag Test - RC Tear: Negative R Shoulder Belly Press - SupScap: Negative R Shoulder Neer - Impingement: Negative R Shoulder Arias Juanito - Impingement: Negative L Shoulder Empty Can - SS: Negative L Shoulder Belly Press - SupScap: Negative L Shoulder Neer - Impingement: Positive L Shoulder Arias Juanito - Impingement: Positive R Elbow Tinels - Ulnar n.: Negative R Elbow Valgus Stress Test - MCL Instability: Negative R Elbow Varus Stress Stest - MCL Instability: Negative L Elbow Tinels - Ulnar n.: Negative L Elbow Valgus Stress Test - MCL Instability: Negative L Elbow Varus Stress Stest - MCL Instability: Negative - Goals Goal 1:: Patient to be I with HEP Goal Time Frame: 4-6 Weeks Goal 2:: Patient decrease pain sterum and bilateral upper arms elbows by 50% or> to improve QOL. Goal Time Frame: 4-6 Weeks Goal 3:: Patient to increase grib strength 40# dynamoter to improve job demands Goal Time Frame: 4-6 Weeks Goal 4:: Patient increae strength BUE to 4/5 to improve function with ability to RTW for job demnads. Goal Time Frame: 4-6 Weeks Goal 5:: Patient to improve quick dash score by 5 points or > to improve QOL and function. Goal Time Frame: 4-6 Weeks - Rehabilitation Potential Physical Therapy Diagnosis: This patient fell at work with arms outstretched cuasing pain upper arms and sternum of chest wall with tenderness elbows ,forearm ,weakness shoulders elbow and wrist affcts housework taks and job demands with RTW Rehabilitation Potential: Good - Anticipated Interventions Patient/Client Instruction: Educate patient on: Condition, Plan of Care For the Purpose of:: To decrease pain, To increase ROM, To improve muscle performance and motor function, To improve ability to perform ADL's, To increase tolerance to activity/condition/position, To improve performance and independence with ADL's, To improve ability of physical actions for home/community/work/leisure, To improve health of tissue, To decrease soft tissue restriction, To increase flexibility/ROM, To improve ability to perform tasks related to life management Therapeutic Exercise to Include: Strength training, Postural training, Flexibilty training, Active ROM, Scapular Strength/Stabilization Comment: BUE For the Purpose of:: To decrease pain, To increase ROM, To improve muscle performance and motor function, To increase tolerance to activity/condition/position, To improve performance and independence with ADL's, To improve ability of physical actions for home/community/work/leisure, To improve health of tissue, To decrease soft tissue restriction, To increase flexibility/ROM, To improve ability to perform tasks related to life management TENS: Yes IF ES: Yes Cryotherapy (ice pack, ice massage): Yes Thermo therapy (hot pack): Yes Ultrasound (thermal/non thermal): Yes For the Purpose of:: To decrease pain, To improve nutrient delivery to tissue, To increase oxygenation perfusion, To improve health of tissue, To decrease soft tissue restriction Thank you for the opportunity to evaluate your patient. For Medicare and Medicare HMO plans, please review the plan of care and approve it. It will need to be FAXED BACK to us at [phone] for Medicare purposes. For Medicare only, by signing this I certify the plan of care. Please let me know if there are questions or concerns regarding this plan of care. Physician Signature: Date:
--- NOTE | 2020-06-01 13:55 | HP.PT.NRP ---
AMADA MARSHALL was seen in my office for initial evaluation on 04/03/20. The following Plan of Care was established for this patient: Initial Frequency: 3x /Week Initial Duration: 4 Weeks Patient/Client Instruction: Educate patient on: Condition, Plan of Care For the Purpose of:: To decrease pain, To increase ROM, To improve muscle performance and motor function, To improve ability to perform ADL's, To increase tolerance to activity/condition/position, To improve performance and independence with ADL's, To improve ability of physical actions for home/community/work/leisure, To improve health of tissue, To decrease soft tissue restriction, To increase flexibility/ROM, To improve ability to perform tasks related to life management Therapeutic Exercise to Include: Strength training, Postural training, Flexibilty training, Active ROM, Scapular Strength/Stabilization For the Purpose of:: To decrease pain, To increase ROM, To improve muscle performance and motor function, To increase tolerance to activity/condition/position, To improve performance and independence with ADL's, To improve ability of physical actions for home/community/work/leisure, To improve health of tissue, To decrease soft tissue restriction, To increase flexibility/ROM, To improve ability to perform tasks related to life management TENS: Yes IF ES: Yes Cryotherapy (ice pack, ice massage): Yes Thermo therapy (hot pack): Yes Ultrasound (thermal/non thermal): Yes For the Purpose of:: To decrease pain, To improve nutrient delivery to tissue, To increase oxygenation perfusion, To improve health of tissue, To decrease soft tissue restriction This patient was last seen in our office . Pertinent comments regarding their Physical therapy will appear below: Patient seen for PT with work related injury upper arm and thorax ,but was referred to orthopediac consult who recommended OT for left elbow ,thus is d/c from PT services. At this point I will be discontinuing this patient from physical therapy. I would be happy to see this patient again in the future if found appropriate by the physician. Thank you! Pablo Krause, PT, Cert MDT, OCS
== END 2020-04-25 19:00 ==
LOC: PT 07:00
PROVIDERS: PCP Internal Medicine; Referring Provider Physician Assistant; Visit Provider Physician Assistant
DX: S40.029A Contusion of unspecified upper arm, initial encounter (principal); S20.219D Contusion of unspecified front wall of thorax, subsequent encounter
CPT/HCPCS: 97014; 97110; 97162; G0283

== ENCOUNTER 2020-04-26 17:54 | Emergency (ER) | payer MEDICARE, SELFPAY ==
[2020-04-26 06:51] VITALS: BMI 268.2
[2020-04-26 17:56] VITALS: BP 125/78; PULSE 101; RESP 18; TEMP 36.6; O2SAT 96; BMI 36.6
[2020-04-26] MEDS: 0.9% Normal Saline 1,000 ML 1000 ML IV (18:56)
[2020-04-26] MEDS: proMETHazine 25 MG/ML Syringe 12.5 MG IV (18:56)
[2020-04-26] MEDS: Ketorolac 15 MG/ML Vial IV (18:56)
[2020-04-26 19:01] VITALS: PULSE 77; RESP 24; O2SAT 98
--- NOTE | 2020-04-26 19:03 | ED.VIS.GEN ---
History of Present Illness Chief Complaint: Nausea/Vomiting/Diarrhea Informant: Patient Onset: Days Context: Gradual Onset Timing: Continuous Current Severity: Moderate Maximum Severity: Moderate Narrative: Patient is a 59-year-old female that presents to the emergency department multiple complaints. She states she has had a dull headache for the past 2 days. She is had a mild cough and is felt mildly short of breath. She is had some vomiting and now is having loose watery diarrhea. She is concerned because she is been exposed to people at work with similar symptoms. She states that she does not know of any positive COVID testing. She denies fevers. She denies abdominal pain. She is otherwise been in her normal state of health. Prior similar symptoms: No Recent Illness/Hospitalization: No Past Medical History - Allergies and Home Meds Allergies/Adverse Reactions: Allergies latex Allergy (Verified 04/26/20 17:58) Itching Penicillins Allergy (Verified 04/26/20 17:58) Hives Primary Care Physician: Jo-Ann López MD [Primary Care Provider] - Prior records reviewed: Yes Past Medical History: - - Asthma Surgical History: cholecystectomy Smoking Status: Never smoker Review of Systems General: Reports: Malaise Eyes: Denies: Visual changes - bilaterally, Diplopia ENT: Denies: Rhinorrhea, Sore throat Cardiovascular: Denies: Chest pain, Palpitations Respiratory: Reports: Cough Gastrointestinal: Reports: Nausea, Vomiting, Diarrhea Genitourinary: Denies: Dysuria, Hematuria, Frequency Musculoskeletal: Denies: Back pain, Extremity Pain Skin: Denies: Rash, Wounds Neurological: Denies: Headache, Weakness, Numbness Physical Exam Vital Signs/Narrative: Vital Signs Temp Pulse Resp BP Pulse Ox 04/26/20 19:01 77 24 H 98 04/26/20 17:56 97.8 F 101 H 18 125/78 H 96 Inital Vital Signs reviewed: Yes General: Well nourished, Well developed, No Acute Distress Head: Normocephalic, Atraumatic Eyes: Perrl, EOMI ENT: Moist mucous membranes, No rhinorrhea Neck: Supple, Nontender Cardiovascular: Regular rate, Regular rhythm, No murmurs Respiratory: No distress, CTA bilaterally, Chest nontender Abdomen: Soft, Nontender, Nondistended, Normal bowel sounds Back: Nontender, Normal Inspection Extremities: Nontender, No edema Skin: Normal color, No rash Neurological: Alert, Oriented x3, Cranial nerves II-XII grossly intact, Normal Strength, Normal Sensation Psychological: Normal affect, Normal Mood Diagnostic/Tx/Re-eval Clinical Impression(s) from Imaging Studies Chest X-Ray 04/26/20 19:10 IMPRESSION: Continued mild hyperexpansion without other acute cardiopulmonary findings or changes. Electronically Signed: Claire Bustillo MD at 19:30 EDT , Service support , Abnormal Lab Results 04/26/20 04/26/20 04/26/20 19:05 19:05 20:00 WBC 6.3 RBC 4.16 L Hgb 12.5 Hct 39.1 MCV 94.0 MCH 30.0 MCHC 32.0 RDW Std Deviation 44.7 H RDW Coeff of Bruna 13.0 Plt Count 252 MPV 10.1 Immature Gran % (Auto) 0.200 Neut % (Auto) 45.4 L Lymph % (Auto) 41.2 H [place] % (Auto) 7.3 Eos % (Auto) 5.1 H Baso % (Auto) 0.8 Absolute Neuts (auto) 2.9 Absolute Lymphs (auto) 2.59 Nucleated RBC % 0 Sodium 143 Potassium 4.1 Chloride 112 H Carbon Dioxide 28.0 Anion Gap 3 L BUN 18 Creatinine 0.88 Estim Creat Clear Calc 54.44 Est GFR (MDRD) Af Amer 85 Est GFR (MDRD) Non-Af 70 BUN/Creatinine Ratio 20.6 H Glucose 90 Calcium 8.8 Total Bilirubin 0.30 AST 14 L ALT 34 Alkaline Phosphatase 71 Total Protein 6.9 Albumin 3.4 Globulin 3.5 Albumin/Globulin Ratio 1.0 Urine Color Yellow Urine Clarity Sl. Cloudy Urine pH 8.0 Ur Specific [place] 1.015 Urine Protein Negative Urine Glucose (UA) Normal Urine Ketones Negative Urine Occult Blood 50 H Urine Nitrite Negative Urine Bilirubin Negative Urine Urobilinogen Normal Ur Leukocyte Esterase 25 H - Medical Decision Making The patient presents with multiple complaints. She describes generalized illness, mild headache, chills, nausea, vomiting, diarrhea. She denies positive sick exposures, but no definitive COVID. Cotesting was obtained and is currently pending as it is a send out. Screening labs were obtained. These were unremarkable. Patient was treated fluids and antiemetics with improvement. Her chest x-ray shows no focal infiltrative process. She is not hypoxic, tachypneic, or tachycardic. She is very well-appearing. At this point, I do feel the patient can safely be discharged. She will be counseled on self isolating until test results are back. She is comfortable with this plan of care. Impression 1. Suspicion for COVID-19 infection 2. Nausea vomiting ED Disposition - Plan for ED Patient: Instructions: ED Viral Gastroenteritis Prescriptions: proMETHazine tablet [Phenergan] 25 mg PO Q6H PRN PRN #10 tab PRN Reason: Nausea Prescription Printed Referrals: Jo-Ann López MD [Primary Care Provider] -
--- NOTE | 2020-04-26 19:10 | RAD_ITS ---
STUDY: X-RAY CHEST REASON FOR EXAM: Female, 59 years old. NAUSEA, VOMITING ,DIARRHEA AND HEADACHE FOR SEVERAL DAYS TECHNIQUE: 1 view COMPARISON: Prior chest radiograph of March 17, 2020 FINDINGS: Continued mild hyperexpansion without consolidation, focal atelectasis or pleural effusion. There is no demonstrated pleural abnormality. Normal size heart. Normal mediastinum and marissa. Normal visualized pulmonary arteries. Normal visualized aortic arch and descending thoracic aorta. Normal visualized thoracic spine. Normal visualized ribs, clavicles, and shoulders. There is no demonstrated abnormality of the visualized soft tissue structures of the upper abdomen. RAD/Chest 1 View (Portable) IMPRESSION: Continued mild hyperexpansion without other acute cardiopulmonary findings or changes. Electronically Signed: Claire Bustillo MD at 19:30 EDT , Service support ,
[2020-04-26 19:12] LABS: Absolute Lymphocyte Count 2.59 X10^3/uL (0.83-4.51); Absolute Neutrophil Count 2.9 X10^3/uL (2.0-7.7); Basophil# 0.05 X10^3/uL; Basophil% 0.8 % (0-1); Eosinophil# 0.32 X10^3/uL; Eosinophils% 5.1 % (0-5); Hematocrit 39.1 % (37-47); Hemoglobin 12.5 g/dL (12.0-15.0); Lymphocyte # 2.59 X10^3/ul (4.0); Lymphocyte % 41.2 % (19-41); Mean Platelet Vol. 10.1 fl (6.2-12.0); Monocyte# 0.46 X10^3/uL; Monocyte% 7.3 % (0-10); NRBC Flagged by Analyzer 0 % (0-5); Neutrophil # 2.86 X10^3/uL (2.7-7.7); Neutrophil % 45.4 % (47-70); Platelet Count 252 K/mm3 (150-450); RBC Distribution Width SD 44.7 fl (35.1-43.9); Red Blood Count 4.16 M/mm3 (4.2-5.4); White Blood Count 6.3 K/mm3 (4.4-11.0)
[2020-04-26 19:38] LABS: AST(SGOT) 14 U/L (15-37); Alanine Aminotransfer ALT/SGPT 34 U/L (13-56); Albumin, Serum 3.4 g/dL (3.2-5.0); Alkaline Phosphatase 71 U/L (45-117); Anion Gap 3 (5-15); BUN 18 mg/dL (7-18); BUN/Creat Ratio 20.6 RATIO (10-20); Calcium,Total 8.8 mg/dL (8.5-10.1); Chloride 112 mmol/L (98-107); Creatinine, Serum 0.88 mg/dL (0.55-1.02); EST Glomerular Filtration Rate 70 mL/min (>60); Est Glom Filt Rate - Afr Amer 85 mL/min (>60); Estimated Creatinine Clearance 54.44 ml/min; Globulin 3.5 g/dL (2.2-4.2); Glucose 90 mg/dL (74-106); Potassium 4.1 mmol/L (3.5-5.1); Protein, Total 6.9 g/dL (6.4-8.2); Sodium Level 143 mmol/L (136-145)
[2020-04-26] MEDS: Ondansetron 4 MG/2 ML Vial IV (20:04)
[2020-04-26] MEDS: DiphenhydrAMINE 50 MG/ML Syringe 25 MG IV (20:04)
[2020-04-26 20:10] LABS: Bacteria 0 SEEN /hpf (None Seen); Mucous, Urine 0 SEEN /hpf (<or=2+); Squamous Epithelial Cells - UA 0 SEEN /hpf (5-10)
[2020-04-26 20:17] LABS: Color, Urine Yellow (Yellow); Glucose, Dipstick Normal (Normal); Ketone-Dipstick Negative (Negative); Leukocyte Esterase-Dipstick 25 /ul (Negative); Nitrite-Dipstick Negative (Negative); Occult Blood-Urine 50 /ul (Negative); Protein-Dipstick Negative (Negative); Specific Gravity, Urine 1.015 (1.002-1.030); Urine Bilirubin Dipstick Negative (Negative); Urine Clarity Sl. Cloudy (Clear); Urine Urobilinogen Normal (Normal)
[2020-04-26 20:34] LABS: Amorphous Sediment 1+
[2020-04-26 20:35] LABS: Hyaline Cast 0-5 SEEN /lpf (0-5)
[2020-04-26 20:36] LABS: Red Blood Cells-Urine 0-5 SEEN /hpf (0-5); White Blood Cells 0-5 SEEN /hpf (0-5)
[2020-04-26 20:51] VITALS: BP 138/67; PULSE 73; RESP 20; O2SAT 98
== END 2020-04-26 20:51 | disposition home or self-care (01) ==
LOC: ED 19:09
PROVIDERS: Emergency Provider Emergency Medicine; PCP Internal Medicine
DX: R11.2 Nausea with vomiting, unspecified (principal); J45.909 Unspecified asthma, uncomplicated; Z20.828 Contact with and (suspected) exposure to other viral communicable diseases
CPT/HCPCS: 71045; 80053; 81001; 85025; 87635; 96361; 96374; 96375; 99284; G2023; J7030; J2405; U0003

== ENCOUNTER 2020-06-20 22:52 | Emergency (ER) | payer MEDICARE, SELFPAY ==
[2020-06-20 22:53] VITALS: BP 134/80; PULSE 84; RESP 18; TEMP 36.3; O2SAT 99; BMI 35.4
--- NOTE | 2020-06-20 23:24 | ED.VIS.GEN ---
History of Present Illness Chief Complaint: Anxiety Informant: Patient Narrative: She stated she comes in for panic attack. She has a history of chronic anxiety on antipsychotic, antidepressant as well as Vistaril. She had a panic attack starting an hour and a half ago at work. She has been under a lot of stress. She denies any suicidal thoughts. Comes in for further evaluation and treatment. She has had to come to the emergency department for treatment for anxiety attacks in the past. Current severity is mild to moderate. 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 Past Medical History - Allergies and Home Meds Allergies/Adverse Reactions: Allergies latex Allergy (Verified 06/20/20 22:56) Itching Penicillins Allergy (Verified 06/20/20 22:56) Hives Primary Care Physician: Jo-Ann López MD [Primary Care Provider] - Prior records reviewed: Yes Past Medical History: - - See problem list Surgical History: cholecystectomy Lives: With Family Smoking Status: Current every day smoker Alcohol: None Drugs: None Review of Systems General: Denies: Chills, Fever, Sweats Eyes: Denies: Visual changes - bilaterally, Diplopia ENT: Denies: Rhinorrhea, Sore throat Cardiovascular: Denies: Chest pain, Palpitations Respiratory: Denies: Dyspnea, Cough, Dyspnea on exertion Gastrointestinal: Denies: Abdominal pain, Nausea, Vomiting, Diarrhea, Melena, Hematochezia Genitourinary: Denies: Dysuria, Hematuria, Frequency Musculoskeletal: Denies: Back pain, Extremity Pain Skin: Denies: Rash, Wounds Neurological: Denies: Headache, Weakness, Numbness Psych: Reports: Anxiety Physical Exam Vital Signs/Narrative: Vital Signs Temp Pulse Resp BP Pulse Ox 06/20/20 22:53 97.4 F L 84 18 134/80 H 99 General: Well nourished, Well developed, No Acute Distress Head: Normocephalic, Atraumatic Eyes: Perrl, EOMI ENT: Moist mucous membranes, No rhinorrhea Neck: Supple, Nontender Cardiovascular: Regular rate, Regular rhythm, No murmurs Respiratory: No distress, CTA bilaterally, Chest nontender Abdomen: Soft, Nontender, Nondistended, Normal bowel sounds Back: Nontender, Normal Inspection Extremities: Nontender, No edema Skin: Normal color, No rash Neurological: Alert, Oriented x3, Cranial nerves II-XII grossly intact, Normal Strength, Normal Sensation Psychological: Normal affect, Normal Mood Diagnostic/Tx/Re-eval - Medical Decision Making She given injection of Ativan. This should help with her anxiety panic attack. She will follow-up as an outpatient with her family doctor. I do not feel she needs a crisis evaluation ED Disposition - Plan for ED Patient: Disposition: Home or Assisted Living Diagnosis: Panic attack Instructions: ED Panic Attack Referrals: Jo-Ann López MD [Primary Care Provider] -
[2020-06-20] MEDS: LORazepam 2 MG/ML Syringe 1 MG IM (23:29)
[2020-06-21 00:03] VITALS: RESP 18
== END 2020-06-21 00:10 | disposition home or self-care (01) ==
LOC: ED 23:33
PROVIDERS: Emergency Provider Emergency Medicine; PCP Internal Medicine
DX: F41.0 Panic disorder [episodic paroxysmal anxiety] (principal); J44.9 Chronic obstructive pulmonary disease, unspecified; Z79.51 Long term (current) use of inhaled steroids; Z79.1 Long term (current) use of non-steroidal anti-inflammatories (NSAID); Z79.899 Other long term (current) drug therapy; F17.200 Nicotine dependence, unspecified, uncomplicated; Z86.711 Personal history of pulmonary embolism
CPT/HCPCS: 96372; 99282

== ENCOUNTER 2020-07-03 07:30 | Outpatient (RCR) | payer OTHER, MEDICARE, SELFPAY ==
--- NOTE | 2020-06-08 07:12 | HP.OTEVAL_ITS ---
Patient's Visit Information AMADA MARSHALL is a 59 year old F, referred to Occupational Therapy by Miles Mendoza PA-C, with a diagnosis of left elbow contusion/ displaced fx of head of radius. Date of Evaluation: 06/07/20 Occupational Therapist: Hailee Wagner, MARIANA/Jeff, CHT - Subjective This 59 year old female was seen for OT eval with dx of left elbow. Pt sufferred a fall Mar 16 2020 she tripped on band from [employer] boxes fall on outstretch arms shoulders left >right had immedediate pain in arms chest -sternum. Patient went [facility] had multiple x-rays of hands,knees,chest and shoulders which was negative. Patient was provided with naprozyn. Then return 2 days later due to pain did 2 injections and tramadol for pain. [facility] also had [facility] shoulder -. Patient return to hospital had injection. Pt has physical therapy but symptoms were not improving pt returned and no has new radial head fx dx. 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 Patient symptoms affects QOL. SOCIAL: . 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 pt does have arthritis and is on meloxican for three years for arthritis - Pain left elbow pain 5 - ROM Elbow: right 0/145 left -25/140 Forearm: right/Left WNL Wrist: right/ left WNL - Strength Staff Auditor: right 38# left 25# some pain Lateral Pinch: right 6# left 6# Tripod Pinch: right 6# left 6# - Sensation Thumb: right 2.83 left 2.83 Index: right 2.83 left 2.83 Middle: right 2.83 left 2.83 Ring: right 2.83 left 2.83 Little: right 2.83 left 2.83 Sensation Comments: denies - Quick DASH-Disab of Arm,Shoulder& Hand Quick DASH Score: 50.0000 - Goals Goal:: pt will demo a increase in left UE MMT 4+/5 to increase pts ind.with ADLs and work tasks by d/c. pt will demo a increase in left information systems supervisor strength to 35# or greater to increase pts ind. with ADls and IADLs by d/c Goal:: pt will demo a increase in left elbow ROM to -5/145 by d/c to increase pts ind. with adls and IALDs by d/c Goal:: pt will report pain no greater than 1/10 with use of left UE with ADLs and IADLs by d/c - Rehabilitation General Assessment: pt demo with a decrease in left elbow ROM, weakness of left UE and information systems supervisor strength decreasing pts ind with ADLs and work tasks. Pt demo need for skilled OT services 2-3 x week for 6 weeks to return pt to PLOF. Today therapist ed. pt on ROM and PLLS ex to gain increase in left elbow ROM, ice and heat PRN pt demo understanding. pt agree to POC. Rehabilitation Potential: Good - Anticipated Interventions A/AAROM/PROM, Strengthening, Triggerpoint Release, Modalities, Orthoses, Joint Protection/Energy Conservation, Ergonomic Education - Visit Plan Frequency: 2-3x /Week Duration: 4-6 Weeks TEXT: Thank you for the opportunity to evaluate your patient. For Medicare and Medicare HMO plans, please review the plan of care and approve it. It will need to be FAXED BACK to us at [phone] for Medicare purposes. Please let me know if there are questions or concerns regarding this plan of care. Physician Signature: Date:
--- NOTE | 2020-10-02 13:27 | HP.OT.NRP ---
AMADA MARSHALL was seen in my office for initial evaluation on 06/07/20. The following Plan of Care was established for this patient: Initial Frequency: 2-3x /Week Initial Duration: 4-6 Weeks Plan: cont with PRE Anticipated Interventions: A/AAROM/PROM, Strengthening, Triggerpoint Release, Modalities, Orthoses, Joint Protection/Energy Conservation, Ergonomic Education This patient was last seen in our office 07/03/20. Pertinent comments regarding their Occupational therapy will appear below: pt seen for four OT sessions with dx of elbow contusion. pt was making good gains in therapy services- she No showed her last scheduled apt. due to time lapse in services pt d/c. At this point I will be discontinuing this patient from occupational therapy. I would be happy to see this patient again in the future if found appropriate by the physician. Thank you! Hailee Wagner, OTR/L, CHT
== END 2020-07-03 19:00 | disposition home or self-care (01) ==
LOC: OT 07:30
PROVIDERS: PCP Internal Medicine; Referring Provider Physician Assistant Surgical; Visit Provider Physician Assistant Surgical
DX: S50.02XD Contusion of left elbow, subsequent encounter (principal); S52.122D Displaced fracture of head of left radius, subsequent encounter for closed fracture with routine healing
CPT/HCPCS: 97110; 97166

== ENCOUNTER 2020-07-05 02:32 | Emergency (ER) | payer MEDICARE, SELFPAY ==
[2020-07-05 02:32] VITALS: BP 101/73; PULSE 71; RESP 16; TEMP 36.6; O2SAT 95; BMI 39.9
--- NOTE | 2020-07-05 03:13 | ED.VIS.LOWEX ---
History of Present Illness Chief Complaint: Lower Extremity Injury Informant: Patient Occurred: Yesterday Narrative: Patient is a 59-year-old female presenting with atraumatic left thigh pain. She states it started yesterday and her left groin region. Throughout the day the pain worsened and is now sharp in her left upper inner thigh. She also feels that it is very tight in that area. She denies any new activities or injuries. 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 She took Tylenol twice with no relief of her symptoms so she came to the emergency room for further evaluation. Patient notes she does have a history of pulmonary embolism but does not know the cause. She denies any swelling of her legs. She denies any shortness of breath, chest pain or difficulty breathing. She denies any recent travel or immobilization. She notes she did have a knee contusion a couple months ago but not sure if this is related. Past Medical History - Allergies and Home Meds Allergies/Adverse Reactions: Allergies latex Allergy (Verified 07/05/20 02:32) Itching Penicillins Allergy (Verified 07/05/20 02:32) Hives Primary Care Physician: Jo-Ann López MD [Primary Care Provider] - Past Medical History: - - Asthma, mitral valve prolapse, neuropathy, migraines, psychiatric disorder Surgical History: cholecystectomy Smoking Status: Current every day smoker Review of Systems General: Denies: Chills, Fever, Sweats Eyes: Denies: Visual changes - bilaterally, Diplopia ENT: Denies: Rhinorrhea, Sore throat Cardiovascular: Denies: Chest pain, Palpitations Respiratory: Denies: Dyspnea, Cough, Dyspnea on exertion Gastrointestinal: Denies: Abdominal pain, Nausea, Vomiting, Diarrhea, Melena, Hematochezia Genitourinary: Denies: Dysuria, Hematuria, Frequency Musculoskeletal: Reports: Extremity Pain - Left upper thigh. Denies: Back pain Skin: Denies: Rash, Wounds Neurological: Denies: Headache, Weakness, Numbness Physical Exam Vital Signs/Narrative: Vital Signs Temp Pulse Resp BP Pulse Ox 07/05/20 02:32 97.8 F 71 16 101/73 95 Inital Vital Signs reviewed: Yes - Extremity Exam Left Pelvis: Negative for: Contusion, Deformity, Edema, Limited ROM Left Hip: Negative for: Contusion, Deformity, Edema, Hematoma, Limited ROM Right Femur: - Left Femur: - - Mild tenderness palpation of the left upper inner thigh, palpable cords. Compartments are soft.. Negative for: Contusion, Deformity, Edema, Hematoma, Limited ROM Left Knee: Negative for: Contusion, Deformity, Edema, Hematoma, Limited ROM Left Tib Fib: Negative for: Contusion, Deformity, Edema, Limited ROM General: Well nourished, Well developed Head: Normocephalic, Atraumatic Eyes: Perrl, EOMI ENT: No Trauma, Moist Mucous Membranes Neck: Nontender, Full ROM Cardiovascular: Regular rate, Regular rhythm, No murmurs Respiratory: No distress, CTA bilaterally, Chest nontender Abdomen: Soft, Nontender Back: Nontender Skin: Normal color, No rash Neurological: Alert, Oriented x3, Cranial nerves II-XII grossly intact, Normal Strength, Normal Sensation Psychological: Normal affect Diagnostic/Tx/Re-eval Laboratory Data 07/05/20 07/05/20 07/05/20 03:10 03:10 03:10 WBC 8.0 RBC 3.91 L Hgb 11.8 L Hct 35.9 L MCV 91.8 MCH 30.2 MCHC 32.9 RDW Std Deviation 44.3 H RDW Coeff of Bruna 113.2 H Plt Count 259 MPV 9.9 Immature Gran % (Auto) 0.200 Neut % (Auto) 49.4 Lymph % (Auto) 40.6 [place] % (Auto) 5.5 Eos % (Auto) 3.6 Baso % (Auto) 0.7 Absolute Neuts (auto) 4.0 Absolute Lymphs (auto) 3.26 PT 12.3 INR 1.0 D-Dimer Quant (PE/DVT) 0.33 Sodium 141 Potassium 3.5 Chloride 112 H Carbon Dioxide 25.0 Anion Gap 4 L BUN 13 Creatinine 0.76 Estim Creat Clear Calc 63.04 Est GFR (MDRD) Af Amer 100 Est GFR (MDRD) Non-Af 83 BUN/Creatinine Ratio 17.1 Glucose 107 H Calcium 8.4 L - Medical Decision Making Patient evaluated for atraumatic left thigh pain. She appears nontoxic in no acute distress. Her compartments are soft. She not have any overlying cellulitis or erythema. Her pulses are equal in her legs. I do not think imaging is indicated as she not have any injury and the pain appears to be more soft tissue nature. Given patient does have a history of PE I did obtain a d-dimer to rule out DVT. Patient is otherwise low risk. D-dimer is negative. She not have a significant electro abnormalities. Patient is given Motrin for pain control does have improvement. Patient states that she is normally on Mobic but has been out lately. She takes this for her back pain. Patient be discharged home with a course of Motrin. She is given a work note for today because she had to leave work because of her leg pain. Patient is counseled on signs and symptoms requiring return to the emergency room. Patient verbalizes agreement and understand this plan. Patient discharged home in stable and improved condition. ED Disposition - Plan for ED Patient: Disposition: Home or Assisted Living Diagnosis: Left thigh pain Instructions: ED Acute Pain [facility] Prescriptions: Ibuprofen [Motrin] 600 mg PO Q6H PRN PRN #20 tab PRN Reason: Pain Score 1-10/10 Transmission Status: Received by NATALY FONTANA-[address] [facility] Referrals: Jo-Ann López MD [Primary Care Provider] - Additional Instructions: Your blood work does not show signs of blood clot in your leg to cause the pain. You do not have any significant electrolyte abnormality such as your potassium to cause the pain. Please return to the emergency room with any worsening symptoms and follow-up with your primary care doctor.
[2020-07-05] MEDS: Ibuprofen 600 MG Tablet PO (03:17)
[2020-07-05 03:27] LABS: Prothrombin Time (Protime)PT. 12.3 SECONDS (11.7-14.9)
[2020-07-05 03:28] LABS: Hematocrit 35.9 % (37-47); Hemoglobin 11.8 g/dL (12.0-15.0); Lymphocyte % 40.6 % (19-41); Mean Corp Hgb Conc 32.9 g/dL (32-36); Mean Corpuscular Hgb 30.2 pg (27.0-32.0); Mean Corpuscular Volume 91.8 fL (81-99); Mean Platelet Vol. 9.9 fl (6.2-12.0); Neutrophil % 49.4 % (47-70); Platelet Count 259 K/mm3 (150-450); RBC Distribution Width CV 113.2 % (11.6-14.6); RBC Distribution Width SD 44.3 fl (35.1-43.9); Red Blood Count 3.91 M/mm3 (4.2-5.4)
[2020-07-05 03:29] LABS: Absolute Lymphocyte Count 3.26 X10^3/uL (0.83-4.51); Basophil% 0.7 % (0-1); Eosinophils% 3.6 % (0-5); Lymphocyte # 3.26 X10^3/ul (4.0); Monocyte# 0.44 X10^3/uL; Monocyte% 5.5 % (0-10); Neutrophil # 3.95 X10^3/uL (2.7-7.7)
[2020-07-05 03:30] LABS: Basophil# 0.06 X10^3/uL; D-Dimer Quantitative (DVT/PE) 0.33 FEU/ug/m (0.27-0.49); Eosinophil# 0.29 X10^3/uL
[2020-07-05 03:34] LABS: Anion Gap 4 (5-15); BUN 13 mg/dL (7-18); BUN/Creat Ratio 17.1 RATIO (10-20); Calcium,Total 8.4 mg/dL (8.5-10.1); Chloride 112 mmol/L (98-107); Creatinine, Serum 0.76 mg/dL (0.55-1.02); EST Glomerular Filtration Rate 83 mL/min (>60); Est Glom Filt Rate - Afr Amer 100 mL/min (>60); Estimated Creatinine Clearance 63.04 ml/min; Glucose 107 mg/dL (74-106); Potassium 3.5 mmol/L (3.5-5.1); Sodium Level 141 mmol/L (136-145)
== END 2020-07-05 03:49 | disposition home or self-care (01) ==
PROVIDERS: Emergency Provider Emergency Medicine; PCP Internal Medicine
DX: M79.652 Pain in left thigh (principal); J45.909 Unspecified asthma, uncomplicated; G43.909 Migraine, unspecified, not intractable, without status migrainosus; Z79.51 Long term (current) use of inhaled steroids; Z86.711 Personal history of pulmonary embolism; Z79.899 Other long term (current) drug therapy
CPT/HCPCS: 80048; 85025; 85379; 85610; 99283

== ENCOUNTER 2020-07-18 14:33 | Emergency (ER) | payer MEDICARE, SELFPAY ==
[2020-07-18] VITALS (7 sets, daily range): BP systolic 107–117; BP diastolic 51–67; PULSE 76–90; RESP 15–18; TEMP 36.2–37.2; O2SAT 96–98; BMI 38.0
[2020-07-18] MEDS: Ipratropium/Albuterol Sulfate 3 ML AMPUL.NEB INHALATION (15:34)
[2020-07-18] MEDS: 0.9% Normal Saline 1,000 ML 1000 ML IV (15:45)
[2020-07-18] MEDS: Acetaminophen 500 MG Tablet 1000 MG PO (15:45)
[2020-07-18 15:47] LABS: Absolute Lymphocyte Count 2.17 X10^3/uL (0.83-4.51); Absolute Neutrophil Count 6.9 X10^3/uL (2.0-7.7); Basophil# 0.05 X10^3/uL; Basophil% 0.5 % (0-1); Eosinophil# 0.18 X10^3/uL; Eosinophils% 1.8 % (0-5); Hematocrit 37.5 % (37-47); Hemoglobin 12.3 g/dL (12.0-15.0); Lymphocyte # 2.17 X10^3/ul (4.0); Lymphocyte % 21.7 % (19-41); Mean Corp Hgb Conc 32.8 g/dL (32-36); Mean Corpuscular Hgb 30.2 pg (27.0-32.0); Mean Corpuscular Volume 92.1 fL (81-99); Monocyte# 0.67 X10^3/uL; Monocyte% 6.7 % (0-10); NRBC Flagged by Analyzer 0 % (0-5); Platelet Count 227 K/mm3 (150-450); RBC Distribution Width CV 13.2 % (11.6-14.6); RBC Distribution Width SD 44.9 fl (35.1-43.9); Red Blood Count 4.07 M/mm3 (4.2-5.4)
--- NOTE | 2020-07-18 16:00 | RAD_ITS ---
STUDY: X-RAY CHEST REASON FOR EXAM: Female, 60 years old. PT WITH COUGH, HEADACHE, SORE THROAT, MUSCLE ACHES AND DIARRHEA. TECHNIQUE: Single AP portable view of the chest. COMPARISON: 04/26/2020 FINDINGS: The lungs are clear and expanded. There is no demonstrated pleural abnormality. Normal size heart. Normal mediastinum and marissa. Normal visualized pulmonary arteries. Normal visualized aortic arch and descending thoracic aorta. Normal visualized thoracic spine. Normal visualized ribs, clavicles, and shoulders. There is no demonstrated abnormality of the visualized soft tissue structures of the upper abdomen. RAD/Chest 1 View (Portable) IMPRESSION: Normal x-ray examination of the chest. Electronically Signed: Henri Cervantes MD at 16:21 EDT Tel , Service support ,
[2020-07-18 16:05] LABS: Anion Gap 5 (5-15); BUN 11 mg/dL (7-18); BUN/Creat Ratio 14.1 RATIO (10-20); Calcium,Total 8.8 mg/dL (8.5-10.1); Chloride 112 mmol/L (98-107); Creatinine, Serum 0.78 mg/dL (0.55-1.02); EST Glomerular Filtration Rate 80 mL/min (>60); Est Glom Filt Rate - Afr Amer 97 mL/min (>60); Estimated Creatinine Clearance 60.66 ml/min; Glucose 90 mg/dL (74-106); Potassium 3.7 mmol/L (3.5-5.1); Sodium Level 141 mmol/L (136-145)
--- NOTE | 2020-07-18 16:35 | ED.DCSUM_ITS ---
- ER Visit Summary Date of Service: 07/18/20 Chief Complaint: Sore throat, cough, ear pain History of Present Illness: The patient is a 60 F who presents with sore throat, cough, and ear pain that is been getting worse over the past 2 days. Patient describes her pain as aching. Patient states she has generalized myalgias. Patient states her throat pain is worse with swallowing. Patient admits to subjective chills but denies any fevers. Patient also admits to some rhinorrhea. Patient admits to a cough but denies any sputum production. Patient denies any shortness of breath. Patient admits to diarrhea but denies any nausea or vomiting. Physical Examination: Vital signs are stable. Patient is afebrile. Patient is in no acute distress. Oral mucosa is pink and moist. Oropharynx is mildly erythematous. There are no exudates noted. Neck is supple. Trachea is midline . There is no JVD. Heart was regular rate and rhythm. Lungs are clear and equal bilaterally. Abdomen is soft. Bowel sounds are normal. There is no tenderness. Cranial nerves II through XII are intact. There are no focal motor or sensory deficits. Test Results: CBC and basic metabolic profile were obtained were within normal limits. Rapid strep was obtained and was positive. Rapid flu swab was obtained and is pending. Portable chest x-ray was obtained. There is no acute cardiopulmonary process. This was interpreted by the radiologist and reviewed by myself. Emergency Department Course and Treatment: Patient was given her first dose of Zithromax here since she is allergic to penicillins. Patient was given a prescr iption for Zithromax. Patient was instructed to follow-up with her primary care physician in 5 to 7 days. Patient understood and was agreeable with the plan. All questions were answered. Disposition: Discharge home Impression: Strep pharyngitis This note was generated with [employer] dictation software. It may contain incorrect words, spelling, and punctuation that were not noted in review of the chart prior to signing ED Disposition - Plan for ED Patient: Disposition: Home or Assisted Living Diagnosis: Strep pharyngitis Instructions: ED Pharyngitis Strep Confirmed Prescriptions: Azithromycin [Zithromax] 250 mg PO DAILY #4 tab Prescription Printed Referrals: Jo-Ann López MD [Primary Care Provider] - 5-7 Days
[2020-07-18] MEDS: Azithromycin 250 MG Tablet 500 MG PO (17:04)
[2020-07-18 17:30] LABS: Mucous, Urine 0 SEEN /hpf (<or=2+); Squamous Epithelial Cells - UA 0 SEEN /hpf (5-10)
[2020-07-18 17:56] LABS: Color, Urine Yellow (Yellow); Glucose, Dipstick Normal (Normal); Ketone-Dipstick Negative (Negative); Leukocyte Esterase-Dipstick 100 /ul (Negative); Nitrite-Dipstick Negative (Negative); Occult Blood-Urine 250 /ul (Negative); Protein-Dipstick Negative (Negative); Urine Bilirubin Dipstick Negative (Negative); Urine Clarity Clear (Clear); Urine Urobilinogen Normal (Normal); Urine pH 6.5 (5.0 - 8.0)
[2020-07-18 18:20] LABS: Bacteria 1+ /hpf (None Seen)
[2020-07-18 18:21] LABS: Red Blood Cells-Urine 0-5 SEEN /hpf (0-5); White Blood Cells 0-5 SEEN /hpf (0-5)
== END 2020-07-18 17:11 | disposition home or self-care (01) ==
PROVIDERS: Emergency Provider Emergency Medicine; PCP Internal Medicine
DX: J02.0 Streptococcal pharyngitis (principal); E66.9 Obesity, unspecified; J45.909 Unspecified asthma, uncomplicated; M19.90 Unspecified osteoarthritis, unspecified site; F32.9 Major depressive disorder, single episode, unspecified; Z79.51 Long term (current) use of inhaled steroids; Z79.899 Other long term (current) drug therapy
CPT/HCPCS: 71045; 80048; 81001; 85025; 87804; 87880; 94640; 96360; 99284; J7030; A4216

== ENCOUNTER 2021-01-10 11:29 | Emergency (ER) | payer MEDICARE, SELFPAY ==
[2020-07-18 14:34] VITALS: BMI 38.0
[2021-01-10 11:29] VITALS: BP 111/75; PULSE 79; RESP 18; TEMP 36.6; O2SAT 98; BMI 39.3
--- NOTE | 2021-01-10 12:12 | ED.DCSUM_ITS ---
History of Present Illness Chief Complaint: Other, Pain/Inj Informant: Patient Narrative: Patient is a 60-year-old female who presents to the emergency department for bilateral neck pain. Her symptoms have been present over the past few weeks. She denies any trauma or inciting event. She has had issues with her neck and back before in the past. She has been taking Tylenol for symptoms which has not been giving her significant relief. Her did massage the neck which only helped temporarily. She has developed a mild headache with this. No fevers or chills. No coughing. She has any chest pain. She does have chronic shortness of breath that she relates to asthma which is no worse than normal. Rotating her head from side to side makes her symptoms worse. No weakness or loss of sensation going down her extremities. Past Medical History - Allergies and Home Meds Allergies/Adverse Reactions: Allergies latex Allergy (Verified 01/10/21 11:31) Itching Penicillins Allergy (Verified 01/10/21 11:31) Hives Primary Care Physician: Jo-Ann López MD [Primary Care Provider] - 3-5 Days if not improving Prior records reviewed: Yes Past Medical History: - - Distant history of PE no longer on anticoagulation Surgical History: cholecystectomy Smoking Status: Former smoker Review of Systems All systems negative except as indicated General: Denies: Chills, Fever, Sweats Eyes: Denies: Visual changes - bilaterally, Diplopia ENT: Denies: Rhinorrhea, Sore throat Cardiovascular: Denies: Chest pain, Palpitations Respiratory: Reports: Dyspnea. Denies: Cough Gastrointestinal: Denies: Abdominal pain, Nausea, Vomiting, Diarrhea Genitourinary: Denies: Dysuria, Hematuria, Frequency Musculoskeletal: Reports: Neck pain. Denies: Myalgias, Extremity Pain Skin: Denies: Rash, Wounds Neurological: Denies: Headache, Weakness, Numbness Physical Exam Vital Signs/Narrative: Vital Signs Temp Pulse Resp BP Pulse Ox 01/10/21 11:29 97.9 F 79 18 111/75 98 Inital Vital Signs reviewed: Yes General: Well nourished, Well developed, No Acute Distress Head: Normocephalic, Atraumatic Eyes: Perrl, EOMI ENT: Moist mucous membranes, No rhinorrhea Neck: Supple, - - Tenderness with palpation of cervical paraspinal musculature as well as SCM. No rigidity. Cardiovascular: Regular rate, Regular rhythm, No murmurs, - - 2+ radial pulse bilaterally. 5 out of 5 muscle strength throughout. Respiratory: No distress, CTA bilaterally, Chest nontender Abdomen: Soft, Nontender, Nondistended Back: Nontender, Normal Inspection Extremities: Nontender, No edema Skin: Normal color, No rash Neurological: Alert, Oriented x3, Cranial nerves II-XII grossly intact, Normal Strength, Normal Sensation Psychological: Normal affect, Normal Mood Diagnostic/Tx/Re-eval - Medical Decision Making Patient presents to the ED for nontraumatic neck pain that has been present over the past few weeks. It is reproducible with rotating her neck as well as pushing on her musculature. I do not feel this is cardiac in nature. It does seem musculoskeletal. We will give a dose of Toradol here in the emergency department and write a prescription for Flexeril. She is to follow-up with her PCP. Patient may benefit from physical therapy for this. Return precautions are reviewed with her. She understands and is agreeable this plan. She is requesting a work excuse for today and will be provided one. All questions were answered. ED Disposition - Plan for ED Patient: Disposition: Home or Assisted Living Diagnosis: Neck pain Instructions: ED Back and Neck Pain, General Prescriptions: cycloBENZAPRine HCl [Flexeril] 10 mg PO TID PRN 3 Days #9 tab PRN Reason: Muscle Spasm Transmission Status: Received by NATALY FONTANA-[address] [facility] Referrals: Jo-Ann López MD [Primary Care Provider] - 3-5 Days if not improving
[2021-01-10] MEDS: Ketorolac 30 MG/ML Syringe IM (12:23)
== END 2021-01-10 12:51 | disposition home or self-care (01) ==
LOC: ED 12:17
PROVIDERS: Emergency Provider Emergency Medicine; PCP Internal Medicine
DX: M54.2 Cervicalgia (principal); Z86.711 Personal history of pulmonary embolism; Z87.891 Personal history of nicotine dependence
CPT/HCPCS: 96372; 99282

== ENCOUNTER 2021-04-11 03:29 | Emergency (ER) | payer MEDICARE, MEDICAID, SELFPAY ==
[2021-04-11 03:30] VITALS: BP 139/68; PULSE 90; RESP 18; TEMP 36.2; O2SAT 97; BMI 39.3
--- NOTE | 2021-04-11 03:32 | CT_ITS ---
STUDY: CT ABDOMEN AND PELVIS WITH CONTRAST REASON FOR EXAM: Female, 60 years old. lower abd pain radiating into back RADIATION DOSAGE (If Supplied By Facility): CTDIvol = ( 19.23 ) mGy, DLP = ( 1086.15 ) mGycm TECHNIQUE: Transaxial images were obtained from the dome of the diaphragm to the symphysis pubis without oral contrast. IV 100mL Isovue-300 was administered. Sagittal and coronal images were reconstructed. Individualized dose optimization techniques were used for this CT. COMPARISON: CTA chest dated 03/26/2016 FINDINGS: The visualized lung bases are unremarkable. The visualized portions of the heart are within normal limits. Small and less than 1 cm hypodensities in the left lobe of the liver suggesting small cysts. Otherwise, unremarkable liver. There is non-visualization of the gallbladder, which may be secondary to either contraction or a prior cholecystectomy. Normal spleen. Normal pancreas. Normal bilateral adrenal glands. Normal right kidney. Normal left kidney. Normal visualized stomach. Normal small intestine. Normal colon. The appendix is visualized and appears normal. Normal abdominal aorta. Normal inferior vena cava. Normal retroperitoneum. Normal urinary bladder. There is absence of the uterus consistent with a prior hysterectomy. Normal abdominal wall. Normal osseous structures. CT/Abdomen/Pelvis W IV Cont ONLY IMPRESSION: Stable small liver cysts. No evidence of urolithiasis or renal obstruction. Unremarkable appendix. Remainder is within normal limits Electronically Signed: Edison Brown DO at 4:52 EDT Tel , Service support ,
--- NOTE | 2021-04-11 03:33 | EDS_ITS ---
HPI HPI - GI History of Present Illness Chief Complaint: Abd Pain Informant: patient Narrative Narrative: Patient presents with lower abdominal pain. She said this pain for 2 days. She describes sharp pains in her lower abdomen that radiates into her back. She does admit to dysuria and also some pain with a bowel movement. Denies any hematuria or blood in her stools. She has had no nausea or vomiting. She does get frequent UTIs and has had a history of a bladder/urethra surgery. She denies any fevers. She tried Tylenol at home which did not give her any relief. PFSH PFSH Medical History (Updated 04/11/21 @ 05:[address] Soham Aguilera MD) Asthma Knee pain MVP (mitral valve prolapse) Shoulder pain Skin cancer Stomach ulcer Home Medications topiramate 50 mg PO TID 07/21/15 [History Last Taken 05/06/19] albuterol sulfate 90 mcg/actuation aerosol inhaler 1 - 2 puff INHALATION Q4H PRN PRN 03/19/20 [History Last Taken Unknown] aripiprazole 5 mg tablet 5 mg PO DAILY 03/19/20 [History Last Taken Unknown] fluticasone 250 mcg-salmeterol 50 mcg/dose blistr powdr for inhalation 1 inh INHALATION DAILY 03/19/20 [History Last Taken Unknown] fluoxetine 10 mg PO DAILY 07/05/20 [History Last Taken Unknown] ibuprofen 600 mg PO Q6H PRN PRN #20 tab 07/05/20 [Rx Last Taken Unknown] multivitamin with minerals 1 ea PO DAILY 01/10/21 [History Last Taken Unknown] dicyclomine 20 mg PO TIDAC #20 capsule 04/11/21 [Rx Last Taken Unknown] ondansetron 8 mg PO Q8H PRN PRN #20 tab 04/11/21 [Rx Last Taken Unknown] Allergy/AdvReac Type Severity Reaction Status Date / Time latex Allergy Itching Verified 04/11/21 03:33 Penicillins Allergy Hives Verified 04/11/21 03:33 Surgical History (Updated 04/11/21 @ 03:35 by Sonia Fowler) History of ureter repair Social History Smoking Status: Former smoker alcohol intake: current Alcohol type: beer ROS ROS ED Constitutional Constitutional ED: Denies chills or fever(s) Eyes Eyes: Denies blurry vision, change in vision or diplopia ENT ENT ED: Denies ear pain, rhinorrhea or sore throat Cardiovascular Cardiovascular: Denies chest pain or palpitations Respiratory/Chest Respiratory/Chest: Denies cough, dyspnea or sputum Gastrointestinal Gastrointestinal: Reports abdominal pain Genitourinary Genitourinary ED: Reports dysuria Musculoskeletal Musculoskeletal: Denies back pain or neck pain Integumentary Denies change in pigmentation or rash Neurologic Neurologic: Denies headache(s), numbness or weakness Psychiatric Psychiatric: Denies anxiety or depression Endocrine Endocrinology: Denies polydipsia or polyuria EXAM Physical Exam Const Vital Signs: 04/11/21 03:30 Temperature 97.2 F L Temperature Source Temporal Pulse Rate 90 Respiratory Rate 18 Blood Pressure 139/68 H Blood Pressure Mean 91 Pulse Ox 97 Oxygen Delivery Method Room Air Positive well nourished and well developed General Appearance ED: well developed and NAD HEENT Reports moist mucous membranes normocephalic and atraumatic; Negative for tenderness Eyes PERRL and EOMs intact bilaterally Neck supple and no JVD Chest Wall Chest: Negative for tenderness Resp normal respiratory effort and clear to auscultation bilaterally Effort and Inspection: Negative for respiratory distress Cardio regular rate, regular rhythm and no murmurs Rate: regular rate Rhythm: regular rhythm GI soft to palpation, non-tender and non-distended Palpation: soft and tender other (Lower abdomen) Back/Spine no CVA tenderness and no thoracic nor lumbar tenderness Cervical Spine: Negative for cervical spine tenderness Extremity normal to inspection and full ROM General Extremety ED: Negative for tenderness Neuro oriented x3, CN's II-XII intact bilaterally and no sensory deficits noted Sensorium / Orientation: awake and alert Motor Exam: strength 5/5 throughout Psych mental status grossly normal Skin no rashes or lesions noted MDM MDM MDM Narrative Medical decision making narrative: Patient was given morphine and Zofran. Labs are unremarkable. Urinalysis negative for infection. CAT scan does not reveal any acute. She was still having nausea so I give her Reglan and Phenergan. Patient will be discharged with Zofran oral and Bentyl for pain. She will foll ow-up with her PCP. Lab Data Labs: Laboratory Results - last 24 hr 04/11/21 04/11/21 04/11/21 03:35 03:35 03:45 WBC 9.7 RBC 4.07 L Hgb 11.8 L Hct 36.3 L MCV 89.2 MCH 29.0 MCHC 32.5 RDW Std Deviation 44.0 H RDW Coeff of Bruna 13.5 Plt Count 295 MPV 8.9 Immature Gran % (Auto) 0.300 Neut % (Auto) 59.6 Lymph % (Auto) 30.5 [place] % (Auto) 5.8 Eos % (Auto) 3.2 Baso % (Auto) 0.6 Absolute Neuts (auto) 5.8 Absolute Lymphs (auto) 2.94 Nucleated RBC % 0 Sodium 141 Potassium 3.8 Chloride 110 H Carbon Dioxide 22.0 Anion Gap 9 BUN 20 H Creatinine 0.83 Estim Creat Clear Calc 57.01 Est GFR (MDRD) Af Amer 90 Est GFR (MDRD) Non-Af 75 BUN/Creatinine Ratio 24.2 H Glucose 100 Calcium 8.6 Total Bilirubin 0.40 AST 18 ALT 25 Alkaline Phosphatase 77 Total Protein 7.1 Albumin 3.7 Globulin 3.4 Albumin/Globulin Ratio 1.1 Urine Color Yellow Urine Clarity Clear Urine pH 6.0 Ur Specific [place] 1.015 Urine Protein Negative Urine Glucose (UA) Normal Urine Ketones Negative Urine Occult Blood 150 H Urine Nitrite Negative Urine Bilirubin Negative Urine Urobilinogen Normal Ur Leukocyte Esterase 25 H Urine RBC 0-5 SEEN Urine WBC 0-5 SEEN Ur Squamous Epith Cells 0-5 SEEN Ur Renal Epithelial Cell 0-5 SEEN Urine Bacteria RARE Hyaline Casts 0-5 SEEN Urine Mucus RARE Radiography Diagnostic Testing: Radiology Impression Abdomen/Pelvis CT 04/11/21 03:32 IMPRESSION: Stable small liver cysts. No evidence of urolithiasis or renal obstruction. Unremarkable appendix. Remainder is within normal limits Electronically Signed: Edison Brown DO at 4:52 EDT Tel , Service support , Discharge Plan Triage Chief Complaint: Abd Pain ED Provider: Soham Aguilera Dx/Rx/DC Orders Clinical Impression: Abdominal pain Instructions: ED Abdominal Pain Unkn Cause Fem Prescriptions: New ondansetron [ondansetron] 4 MG tablet 8 mg PO Q8H PRN PRN (Reason: Nausea) Qty: 20 RF: 0 dicyclomine 10 MG capsule 20 mg PO TIDAC Qty: 20 RF: 0 No Action fluticasone propion-salmeterol 250-50 mcg/dose blister with device 1 inh INHALATION DAILY RF: 0 topiramate 50 MG tablet 50 mg PO TID RF: 0 aripiprazole 5 mg tablet 5 mg PO DAILY RF: 0 albuterol sulfate 90 mcg/actuation HFA aerosol inhaler 1 - 2 puff inhalation Q4H PRN PRN (Reason: Wheezing) RF: 0 fluoxetine 10 MG capsule 10 mg PO DAILY RF: 0 ibuprofen 600 MG tablet 600 mg PO Q6H PRN PRN (Reason: Pain Score 1-10/10) Qty: 20 RF: 0 multivitamin with minerals 1 EACH tablet 1 ea PO DAILY RF: 0 Primary Care Provider: Jo-Ann López Referrals: Jo-Ann López MD [Primary Care Provider] - Disposition Disposition: Home, self care
[2021-04-11] MEDS: Ondansetron 4 MG/2 ML Vial IV (03:37)
[2021-04-11] MEDS: Morphine 4 MG/ML Syringe IV (03:37)
[2021-04-11 03:42] LABS: Absolute Lymphocyte Count 2.94 X10^3/uL (0.83-4.51); Absolute Neutrophil Count 5.8 X10^3/uL (2.0-7.7); Basophil# 0.06 X10^3/uL; Basophil% 0.6 % (0-1); Eosinophil# 0.31 X10^3/uL; Eosinophils% 3.2 % (0-5); Hematocrit 36.3 % (37-47); Hemoglobin 11.8 g/dL (12.0-15.0); Lymphocyte # 2.94 X10^3/ul (0.83-4.51); Lymphocyte % 30.5 % (19-41); Mean Corp Hgb Conc 32.5 g/dL (32-36); Mean Corpuscular Volume 89.2 fL (81-99); Mean Platelet Vol. 8.9 fl (6.2-12.0); Monocyte# 0.56 X10^3/uL; Monocyte% 5.8 % (0-10); NRBC Flagged by Analyzer 0 % (0-5); Neutrophil # 5.75 X10^3/uL (2.7-7.7); Neutrophil % 59.6 % (47-70); Platelet Count 295 K/mm3 (150-450); RBC Distribution Width CV 13.5 % (11.6-14.6); Red Blood Count 4.07 M/mm3 (4.2-5.4); White Blood Count 9.7 K/mm3 (4.4-11.0)
[2021-04-11 03:54] LABS: Color, Urine Yellow (Yellow); Glucose, Dipstick Normal (Normal); Ketone-Dipstick Negative (Negative); Leukocyte Esterase-Dipstick 25 /ul (Negative); Nitrite-Dipstick Negative (Negative); Occult Blood-Urine 150 /ul (Negative); Protein-Dipstick Negative (Negative); Specific Gravity, Urine 1.015 (1.002-1.030); Urine Bilirubin Dipstick Negative (Negative); Urine Clarity Clear (Clear); Urine Urobilinogen Normal (Normal)
[2021-04-11 03:56] LABS: ALB/GLOB Ratio 1.1 RATIO (0.9-2.4); AST(SGOT) 18 U/L (15-37); Alanine Aminotransfer ALT/SGPT 25 U/L (13-56); Albumin, Serum 3.7 g/dL (3.2-5.0); Alkaline Phosphatase 77 U/L (45-117); Anion Gap 9 (5-15); BUN 20 mg/dL (7-18); BUN/Creat Ratio 24.2 RATIO (10-20); Calcium,Total 8.6 mg/dL (8.5-10.1); Chloride 110 mmol/L (98-107); Creatinine, Serum 0.83 mg/dL (0.55-1.02); EST Glomerular Filtration Rate 75 mL/min (>60); Est Glom Filt Rate - Afr Amer 90 mL/min (>60); Estimated Creatinine Clearance 57.01 ml/min; Globulin 3.4 g/dL (2.2-4.2); Glucose 100 mg/dL (74-106); Potassium 3.8 mmol/L (3.5-5.1); Protein, Total 7.1 g/dL (6.4-8.2); Sodium Level 141 mmol/L (136-145)
[2021-04-11 04:04] LABS: Bacteria RARE /hpf (None Seen); Hyaline Cast 0-5 SEEN /lpf (0-5); Mucous, Urine RARE /hpf (<or=2+); Red Blood Cells-Urine 0-5 SEEN /hpf (0-5); Renal Epithelial Cells 0-5 SEEN /hpf (0-5); Squamous Epithelial Cells - UA 0-5 SEEN /hpf (5-10); White Blood Cells 0-5 SEEN /hpf (0-5)
[2021-04-11] MEDS: Metoclopramide 10 MG/2 ML Vial 5 MG IV (04:18)
[2021-04-11] MEDS: proMETHazine 25 MG/ML Syringe 12.5 MG IM (04:59)
[2021-04-11 05:52] VITALS: BP 137/66; PULSE 75; RESP 18; O2SAT 97
== END 2021-04-11 05:55 | disposition home or self-care (01) ==
PROVIDERS: Emergency Provider Emergency Medicine; PCP Internal Medicine
DX: R10.30 Lower abdominal pain, unspecified (principal); J45.909 Unspecified asthma, uncomplicated; Z79.51 Long term (current) use of inhaled steroids; Z87.891 Personal history of nicotine dependence
CPT/HCPCS: 74177; 80053; 81001; 85025; 96372; 96374; 96375; 99284; Q9967; A4216; J2405

== ENCOUNTER 2021-07-26 00:13 | Emergency (ER) | payer MEDICARE, OTHER, MEDICAID, SELFPAY ==
[2021-07-26 00:14] VITALS: BP 146/78; PULSE 81; RESP 14; TEMP 36.9; O2SAT 97; BMI 41.1
--- NOTE | 2021-07-26 00:20 | RAD_ITS ---
STUDY: X-RAY CHEST REASON FOR EXAM: Female, 61 years old. cp TECHNIQUE: Single AP portable view of the chest. COMPARISON: 07/18/2020. FINDINGS: The lungs are normally expanded with mild hazy opacity within the left mid lower lung concerning for mild infiltrate. There is a right basilar patchy opacity concerning for infiltrate versus atelectasis. There is no demonstrated pleural abnormality. Normal size heart. Normal mediastinum and marissa. Normal visualized pulmonary arteries. Normal visualized aortic arch and descending thoracic aorta. Possible diffuse osteopenia. Normal visualized ribs, clavicles, and shoulders. There is no demonstrated abnormality of the visualized soft tissue structures of the upper abdomen. RAD/Chest 1 View (Portable) IMPRESSION: Left lower lobe pneumonia. Right basilar atelectasis versus infiltrate. No pleural effusion or pneumothorax. Electronically Signed: Soraya Hutchinson MD at 1:11 EDT , Service support ,
--- NOTE | 2021-07-26 00:21 | EKG12_ITS ---
Test Reason : SOB Blood Pressure : / mmHG Vent. Rate : 072 BPM Atrial Rate : 072 BPM P-R Int : 126 ms QRS Dur : 084 ms QT Int : 432 ms P-R-T Axes : 053 000 025 degrees QTc Int : 473 ms Normal sinus rhythm Low voltage QRS Borderline ECG Confirmed by SEJAL CUMMINGS, ROXI ([id number]), multimedia editor CORI CASTANEDA ([id number]) on 07/29/2021 1:16:41 PM Referred By: JACINTO Confirmed By:ROXI POST MD
--- NOTE | 2021-07-26 00:22 | EDS_ITS ---
HPI History of Present Illness Chief Complaint: Shortness of Breath Detail of Chief Complaint: Anxiety Informant: patient Onset/Context/Timing Onset: Today Current Severity: Mild Maximum Severity: Moderate Narrative Narrative: Patient presents secondary shortness of breath and chest tightness that she believes is related to anxiety. She states she has had more stressors at home recently and has started having panic attacks again. She takes Vistaril on a regular basis. This evening when her symptoms worsen she did take her Vistaril but it did not seem to help. Patient does report feeling her heart was racing and skipping beats. She feels mildly short of breath. She describes some chest tightness. Patient is a history of mitral valve prolapse but no other cardiac disease. Patient does report a history of PE in the past after being ill with pneumonia. She is no longer on anticoagulants. [facility] Medical History Asthma COPD (chronic obstructive pulmonary disease) Kidney stone MVP (mitral valve prolapse) Pulmonary embolism Skin cancer Stomach ulcer Home Medications topiramate 50 mg PO TID 07/21/15 [History Last Taken 05/06/19] albuterol sulfate 90 mcg/actuation aerosol inhaler 1 - 2 puff INHALATION Q4H PRN PRN 03/19/20 [History Last Taken Unknown] aripiprazole 5 mg tablet 5 mg PO DAILY 03/19/20 [History Last Taken Unknown] fluticasone 250 mcg-salmeterol 50 mcg/dose blistr powdr for inhalation 1 inh INHALATION DAILY 03/19/20 [History Last Taken Unknown] fluoxetine 10 mg PO DAILY 07/05/20 [History Last Taken Unknown] ibuprofen 600 mg PO Q6H PRN PRN #20 tab 07/05/20 [Rx Last Taken Unknown] multivitamin with minerals 1 ea PO DAILY 01/10/21 [History Last Taken Unknown] dicyclomine 20 mg PO TIDAC #20 capsule 04/11/21 [Rx Last Taken Unknown] ondansetron 8 mg PO Q8H PRN PRN #20 tab 04/11/21 [Rx Last Taken Unknown] lorazepam [Ativan] 1 mg PO BID PRN #10 tab 07/26/21 [Rx Last Taken Unknown] prednisone 40 mg PO DAILY #10 tab 07/26/21 [Rx Last Taken Unknown] Allergy/AdvReac Type Severity Reaction Status Date / Time latex Allergy Itching Verified 07/26/21 01:17 Penicillins Allergy Hives Verified 07/26/21 01:17 Surgical History History of ureter repair Social History Smoking Status: Former smoker alcohol intake: current Alcohol type: beer ROS ROS ED Constitutional Constitutional ED: Denies chills or fever(s) Eyes Eyes: Denies change in vision ENT ENT ED: Denies sore throat Cardiovascular Cardiovascular: Reports chest pain, palpitations and racing heartbeat Respiratory/Chest Respiratory/Chest: Reports dyspnea; Denies cough Gastrointestinal Gastrointestinal: Denies abdominal pain, diarrhea, nausea or vomiting Genitourinary Genitourinary ED: Denies dysuria Musculoskeletal Musculoskeletal: Denies back pain Integumentary Denies rash Neurologic Neurologic: Denies headache(s) or weakness Psychiatric Psychiatric: Reports anxiety; Denies depression Allergic/Immunologic Allergic/Immunologic ED: Denies urticaria EXAM Physical Exam Const Vital Signs: 07/26/21 00:14 07/26/21 01:20 Temperature 98.4 F Temperature Source Temporal Pulse Rate 81 Respiratory Rate 14 Respiratory Effort Normal Blood Pressure 146/78 H Blood Pressure Mean 100 Pulse Ox 97 Oxygen Delivery Method Room Air Positive well nourished and well developed General Appearance ED: well developed HEENT Reports normocephalic and head/scalp atraumatic Eyes PERRL and EOMs intact bilaterally Neck supple Chest Wall inspection of chest normal and palpation of chest normal Resp normal respiratory effort and clear to auscultation bilaterally Cardio regular rate and regular rhythm GI normal to inspection, nondistended, normoactive bowel sounds Palpation: soft Extremity normal to inspection Neuro oriented x3 and no sensory deficits noted Sensorium / Orientation: alert Motor Exam: strength 5/5 throughout Psych Mood & Affect: anxious Skin no rashes or lesions noted MDM MDM MDM Narrative Medical decision making narrative: EKG, chest x-ray, lab work obtained. Patient was given a dose of Ativan to help with anxiety. Lab Data Attestation: I reviewed the patient's lab results. Labs: Laboratory Results - last 24 hr 07/26/21 07/26/21 00:55 00:55 WBC 7.2 RBC 3.90 L Hgb 11.4 L Hct 35.9 L MCV 92.1 MCH 29.2 MCHC 31.8 L RDW Std Deviation 47.3 H RDW Coeff of Bruna 14.0 Plt Count 277 MPV 9.9 Immature Gran % (Auto) 0.400 Neut % (Auto) 50.6 Lymph % (Auto) 38.2 Hemphill % (Auto) 6.1 Eos % (Auto) 4.0 Baso % (Auto) 0.7 Absolute Neuts (auto) 3.7 Absolute Lymphs (auto) 2.76 Nucleated RBC % 0 Sodium 141 Potassium 3.8 Chloride 113 H Carbon Dioxide 25.0 Anion Gap 3 L BUN 18 Creatinine 0.68 Estim Creat Clear Calc 68.71 Est GFR (MDRD) Af Amer 113 Est GFR (MDRD) Non-Af 93 BUN/Creatinine Ratio 26.4 H Glucose 95 Calcium 8.6 Troponin I High Sens 5 Radiography Chest X-Ray - ED: 1 View, Read by ED Physician and Chronic Changes Diagnostic Testing: Radiology Impression Chest X-Ray 07/26/21 00:20 IMPRESSION: Left lower lobe pneumonia. Right basilar atelectasis versus infiltrate. No pleural effusion or pneumothorax. Electronically Signed: Soraya Hutchinson MD at 1:11 EDT , Service support , Chest CTA 07/26/21 01:30 IMPRESSION: Negative CTA chest examination, without a demonstrated pulmonary embolism or arterial dissection. Foci of multifocal pneumonitis as described. Right middle lobe and lingular bronchiectasis with anterior subpleural scarring with atelectasis as described. No pleural effusion or pneumothorax. Electronically Signed: Soraya Hutchinson MD at 2:20 EDT , Service support , EKG Initial EKG: Attestation: I personally reviewed and interpreted this EKG as follows: Interpretation: Sinus Rhythm (Sinus at 72 with no acute ischemia.) Treatment and Re-Evaluation Comments:: Lab work is unremarkable. Chest x-ray per my interpretation was chronic changes. Radiologist was concerned for left lower lobe infiltrate. With the patient having chest heaviness and shortness of breath and a history of pulmonary embolism she was sent for CTA of the chest. This reveals a pneumonitis pattern but no focal infiltrate. In light of this finding rapid Covid test was obtained and negative. Patient does now state that she has been inhaling a chemical at work that she seems to be very sensitive to. She has noticed more symptoms recently. She will be treated with a course of steroids to help treat the lung inflammation. She will also be given a short course of Ativan. She is to follow-up with her psychiatrist. Discharge Plan Triage Chief Complaint: Shortness of Breath ED Provider: Nat Terrell Dx/Rx/DC Orders Clinical Impression: Pneumonitis, Anxiety Instructions: ED Understanding Hypersensitivity Pneumonitis, ED Anxiety Reaction Prescriptions: New prednisone 20 mg tablet 40 mg PO DAILY Qty: 10 RF: 0 lorazepam [Ativan] 1 mg tablet 1 mg PO BID PRN (Reason: anxiety) Qty: 10 RF: 0 No Action fluticasone propion-salmeterol 250-50 mcg/dose blister with device 1 inh INHALATION DAILY RF: 0 topiramate 50 MG tablet 50 mg PO TID RF: 0 aripiprazole 5 mg tablet 5 mg PO DAILY RF: 0 albuterol sulfate 90 mcg/actuation HFA aerosol inhaler 1 - 2 puff inhalation Q4H PRN PRN (Reason: Wheezing) RF: 0 fluoxetine 10 MG capsule 10 mg PO DAILY RF: 0 ibuprofen 600 MG tablet 600 mg PO Q6H PRN PRN (Reason: Pain Score 1-10/10) Qty: 20 RF: 0 multivitamin with minerals 1 EACH tablet 1 ea PO DAILY RF: 0 ondansetron [ondansetron] 4 MG tablet 8 mg PO Q8H PRN PRN (Reason: Nausea) Qty: 20 RF: 0 dicyclomine 10 MG capsule 20 mg PO TIDAC Qty: 20 RF: 0 Primary Care Provider: Jo-Ann López Referrals: Jo-Ann López MD [Primary Care Provider] - 1 Week Disposition Disposition: Home, Self Care
[2021-07-26] MEDS: LORazepam 2 MG/ML Syringe 0.5 MG IV (00:49)
[2021-07-26 00:59] LABS: Absolute Lymphocyte Count 2.76 X10^3/uL (0.83-4.51); Absolute Neutrophil Count 3.7 X10^3/uL (2.0-7.7); Basophil# 0.05 X10^3/uL; Basophil% 0.7 % (0-1); Eosinophil# 0.29 X10^3/uL; Hematocrit 35.9 % (37-47); Hemoglobin 11.4 g/dL (12.0-15.0); Lymphocyte # 2.76 X10^3/ul (0.83-4.51); Lymphocyte % 38.2 % (19-41); Mean Corp Hgb Conc 31.8 g/dL (32-36); Mean Corpuscular Hgb 29.2 pg (27.0-32.0); Mean Corpuscular Volume 92.1 fL (81-99); Mean Platelet Vol. 9.9 fl (6.2-12.0); Monocyte# 0.44 X10^3/uL; Monocyte% 6.1 % (0-10); NRBC Flagged by Analyzer 0 % (0-5); Neutrophil # 3.66 X10^3/uL (2.7-7.7); Neutrophil % 50.6 % (47-70); Platelet Count 277 K/mm3 (150-450); RBC Distribution Width SD 47.3 fl (35.1-43.9); White Blood Count 7.2 K/mm3 (4.4-11.0)
[2021-07-26 01:19] LABS: Anion Gap 3 (5-15); BUN 18 mg/dL (7-18); BUN/Creat Ratio 26.4 RATIO (10-20); Calcium,Total 8.6 mg/dL (8.5-10.1); Chloride 113 mmol/L (98-107); Creatinine, Serum 0.68 mg/dL (0.55-1.02); EST Glomerular Filtration Rate 93 mL/min (>60); Est Glom Filt Rate - Afr Amer 113 mL/min (>60); Estimated Creatinine Clearance 68.71 ml/min; Glucose 95 mg/dL (74-106); Potassium 3.8 mmol/L (3.5-5.1); Sodium Level 141 mmol/L (136-145); Troponin-I HS 5 pg/mL (3.0-54.0)
--- NOTE | 2021-07-26 01:30 | CT_ITS ---
STUDY: CTA CHEST REASON FOR EXAM: Female, 61 years old. pulmonary embolism RADIATION DOSAGE (If Supplied By Facility): CTDIvol = ( 14.56 ) mGy, DLP = ( 473.14 ) mGycm TECHNIQUE: The examination was performed with the intravenous administration of IV 100mL Isovue-300. Post-processing of the angiographic images was performed, with multiplanar reformation and 3D reconstruction. Individualized dose optimization techniques were used for this CT. COMPARISON: None. FINDINGS: Normal enhancement of the main pulmonary artery and right and left pulmonary arteries. Normal enhancement of the bilateral peripheral pulmonary arteries. There is no demonstrated pulmonary embolism. Normal thoracic aorta and visualized great vessels. There is no demonstrated aortic dissection. Normal heart and pericardium. Normal mediastinum. Normal hilar regions. Normal visualized trachea and bronchi. The lungs are well expanded. There is mild right middle lobe bronchiectasis with anterior atelectasis and scarring. There is mild lingular bronchiectasis with mild anterior atelectasis and scarring. There are scattered small foci groundglass opacities within the bilateral lower lobes and left upper lobe some in a subpleural distribution, cannot exclude mild multifocal pneumonitis. Normal pleura. Normal chest wall structures. There are degenerative changes of thoracic spine. Normal visualized upper abdomen. CT/CTA Chest W/WO Contrast IMPRESSION: Negative CTA chest examination, without a demonstrated pulmonary embolism or arterial dissection. Foci of multifocal pneumonitis as described. Right middle lobe and lingular bronchiectasis with anterior subpleural scarring with atelectasis as described. No pleural effusion or pneumothorax. Electronically Signed: Soraya Hutchinson MD at 2:20 EDT , Service support ,
[2021-07-26 03:32] VITALS: BP 121/68; PULSE 76; RESP 14; O2SAT 97
[2021-07-26] MEDS: predniSONE 20 MG Tablet 60 MG PO (03:35)
== END 2021-07-26 03:38 | disposition home or self-care (01) ==
PROVIDERS: Emergency Provider Emergency Medicine; PCP Internal Medicine
DX: J18.9 Pneumonia, unspecified organism (principal); J44.0 Chronic obstructive pulmonary disease with (acute) lower respiratory infection; F41.9 Anxiety disorder, unspecified; Z79.51 Long term (current) use of inhaled steroids; Z79.899 Other long term (current) drug therapy; Z86.711 Personal history of pulmonary embolism; Z87.891 Personal history of nicotine dependence
CPT/HCPCS: 71045; 71275; 80048; 84484; 85025; 87426; 93005; 96374; 99285; Q9967

== ENCOUNTER 2021-08-22 04:29 | Emergency (ER) | payer MEDICARE, MEDICAID, SELFPAY ==
[2021-08-22 04:30] VITALS: BP 120/67; PULSE 90; RESP 16; TEMP 36.7; O2SAT 99; BMI 41.0
--- NOTE | 2021-08-22 05:27 | EDS_ITS ---
HPI History of Present Illness Chief Complaint: Abd Pain Informant: patient Onset/Context/Timing Onset: Days (2) Context: Gradual Onset Timing: Continuous Location: Lower abdomen Worsened by: Nothing Relieved by: Tylenol Narrative Narrative: Patient presents with lower abdominal and back pain that has been getting worse over the past 2 days. Patient states her pain is sharp. Patient states it is over the lower abdomen. Patient states it radiates into her lower back. Patient states she has been taking Tylenol which has been taking the edge off of it. Patient admits to some urinary urgency and dysuria. Patient denies any hematuria. Patient states nothing makes her pain worse. Patient denies any fevers or chills. Patient denies any nausea or vomiting. [facility] Medical History Asthma COPD (chronic obstructive pulmonary disease) Kidney stone MVP (mitral valve prolapse) Pulmonary embolism Skin cancer Stomach ulcer Home Medications topiramate 50 mg PO TID 07/21/15 [History Last Taken 05/06/19] albuterol sulfate 90 mcg/actuation aerosol inhaler 1 - 2 puff INHALATION Q4H PRN PRN 03/19/20 [History Last Taken Unknown] aripiprazole 5 mg tablet 5 mg PO DAILY 03/19/20 [History Last Taken Unknown] fluticasone 250 mcg-salmeterol 50 mcg/dose blistr powdr for inhalation 1 inh INHALATION DAILY 03/19/20 [History Last Taken Unknown] fluoxetine 10 mg PO DAILY 07/05/20 [History Last Taken Unknown] ibuprofen 600 mg PO Q6H PRN PRN #20 tab 07/05/20 [Rx Last Taken Unknown] multivitamin with minerals 1 ea PO DAILY 01/10/21 [History Last Taken Unknown] dicyclomine 20 mg PO TIDAC #20 capsule 04/11/21 [Rx Last Taken Unknown] ondansetron 8 mg PO Q8H PRN PRN #20 tab 04/11/21 [Rx Last Taken Unknown] lorazepam [Ativan] 1 mg PO BID PRN #10 tab 07/26/21 [Rx Last Taken Unknown] prednisone 40 mg PO DAILY #10 tab 07/26/21 [Rx Last Taken Unknown] phenazopyridine [Pyridium] 200 mg PO TID #10 tab 08/22/21 [Rx Last Taken Unknown] Allergy/AdvReac Type Severity Reaction Status Date / Time latex Allergy Itching Verified 08/22/21 04:34 Penicillins Allergy Hives Verified 08/22/21 04:34 Surgical History History of ureter repair Social History Smoking Status: Former smoker alcohol intake: current Alcohol type: beer ROS ROS ED Constitutional Constitutional ED: Denies chills or fever(s) Eyes Eyes: Denies blurry vision or change in vision ENT ENT ED: Denies rhinorrhea or sore throat Cardiovascular Cardiovascular: Denies chest pain or palpitations Respiratory/Chest Respiratory/Chest: Denies cough or dyspnea Gastrointestinal Gastrointestinal: Reports abdominal pain; Denies nausea or vomiting Genitourinary Genitourinary ED: Reports dysuria; Denies hematuria Musculoskeletal Musculoskeletal: Reports back pain; Denies neck pain Integumentary Denies abscess or rash Neurologic Neurologic: Denies headache(s) or weakness Allergic/Immunologic Allergic/Immunologic ED: Denies mouth swelling or urticaria EXAM Physical Exam Const Vital Signs: 08/22/21 04:30 Temperature 98.1 F Temperature Source Oral Pulse Rate 90 Respiratory Rate 16 Blood Pressure 120/67 Blood Pressure Mean 84 Pulse Ox 99 Oxygen Delivery Method Room Air Positive well nourished, well developed and obese General Appearance ED: well developed Nutritional Appearance: obese HEENT Reports moist mucous membranes Neck supple and no JVD Resp normal respiratory effort and clear to auscultation bilaterally Cardio regular rate, regular rhythm and no murmurs GI normal to inspection, nondistended, normoactive bowel sounds Palpation: soft and tender RLQ and suprapubic; Negative for guarding or rebound tenderness present Extremity normal to inspection General Extremety ED: Negative for edema or tenderness General Extremity: Negative for edema Neuro oriented x3, CN's II-XII intact bilaterally and no sensory deficits noted Sensorium / Orientation: alert Motor Exam: strength 5/5 throughout Psych mental status grossly normal Skin no rashes or lesions noted MDM MDM MDM Narrative Medical decision making narrative: CBC and basic metabolic profile were obtained and were within normal limits. Urinalysis was obtained. There is no evidence o f urinary tract infection. Patient is symptomatic for cystitis. Patient was given a prescription for Pyridium. Patient was instructed to drink plenty of fluids. Patient was instructed to follow-up with her primary care physician in 3 to 5 days. Patient was instructed return if worse in any way. Patient understands and is agreeable with the plan. All questions were answered. Lab Data Attestation: I reviewed the patient's lab results. Labs: Laboratory Results - last 24 hr 08/22/21 08/22/21 08/22/21 05:41 05:41 05:41 WBC 5.9 RBC 3.95 L Hgb 11.6 L Hct 35.7 L MCV 90.4 MCH 29.4 MCHC 32.5 RDW Std Deviation 45.3 H RDW Coeff of Bruna 13.7 Plt Count 231 MPV 9.8 Sodium 141 Potassium 3.6 Chloride 110 H Carbon Dioxide 24.0 Anion Gap 7 BUN 19 H Creatinine 0.89 Estim Creat Clear Calc 52.50 Est GFR (MDRD) Af Amer 83 Est GFR (MDRD) Non-Af 69 BUN/Creatinine Ratio 21.4 H Glucose 97 Calcium 8.6 Urine Color Straw Urine Clarity Clear Urine pH 6.5 Ur Specific [place] 1.010 Urine Protein Negative Urine Glucose (UA) Normal Urine Ketones Negative Urine Occult Blood 50 H Urine Nitrite Negative Urine Bilirubin Negative Urine Urobilinogen Normal Ur Leukocyte Esterase Negative Urine RBC 0-5 SEEN Urine WBC 0 SEEN Ur Squamous Epith Cells 0 SEEN Urine Bacteria 0 SEEN Urine Mucus 0 SEEN Discharge Plan Triage Chief Complaint: Abd Pain Other Complaint: Complaint ED Provider: Israel Harp Dx/Rx/DC Orders Clinical Impression: Dysuria Instructions: ED Pelvic Pain, Unknown Cause Prescriptions: New phenazopyridine [Pyridium] 200 MG tablet 200 mg PO TID Qty: 10 RF: 0 No Action fluticasone propion-salmeterol 250-50 mcg/dose blister with device 1 inh INHALATION DAILY RF: 0 topiramate 50 MG tablet 50 mg PO TID RF: 0 aripiprazole 5 mg tablet 5 mg PO DAILY RF: 0 albuterol sulfate 90 mcg/actuation HFA aerosol inhaler 1 - 2 puff inhalation Q4H PRN PRN (Reason: Wheezing) RF: 0 fluoxetine 10 MG capsule 10 mg PO DAILY RF: 0 ibuprofen 600 MG tablet 600 mg PO Q6H PRN PRN (Reason: Pain Score 1-10/10) Qty: 20 RF: 0 multivitamin with minerals 1 EACH tablet 1 ea PO DAILY RF: 0 ondansetron [ondansetron] 4 MG tablet 8 mg PO Q8H PRN PRN (Reason: Nausea) Qty: 20 RF: 0 dicyclomine 10 MG capsule 20 mg PO TIDAC Qty: 20 RF: 0 prednisone 20 mg tablet 40 mg PO DAILY Qty: 10 RF: 0 lorazepam [Ativan] 1 mg tablet 1 mg PO BID PRN (Reason: anxiety) Qty: 10 RF: 0 Primary Care Provider: Jo-Ann López Referrals: Jo-Ann López MD [Primary Care Provider] - 3-5 Days Disposition Disposition: Home, Self Care
[2021-08-22 05:47] LABS: Bacteria 0 SEEN /hpf (None Seen); Hematocrit 35.7 % (37-47); Hemoglobin 11.6 g/dL (12.0-15.0); Mean Corp Hgb Conc 32.5 g/dL (32-36); Mean Corpuscular Hgb 29.4 pg (27.0-32.0); Mean Corpuscular Volume 90.4 fL (81-99); Mean Platelet Vol. 9.8 fl (6.2-12.0); Mucous, Urine 0 SEEN /hpf (<or=2+); Platelet Count 231 K/mm3 (150-450); RBC Distribution Width CV 13.7 % (11.6-14.6); RBC Distribution Width SD 45.3 fl (35.1-43.9); Red Blood Count 3.95 M/mm3 (4.2-5.4); Squamous Epithelial Cells - UA 0 SEEN /hpf (5-10); White Blood Cells 0 SEEN /hpf (0-5); White Blood Count 5.9 K/mm3 (4.4-11.0)
[2021-08-22 05:51] LABS: Color, Urine Straw (Yellow); Glucose, Dipstick Normal (Normal); Ketone-Dipstick Negative (Negative); Leukocyte Esterase-Dipstick Negative /ul (Negative); Nitrite-Dipstick Negative (Negative); Occult Blood-Urine 50 /ul (Negative); Protein-Dipstick Negative (Negative); Urine Bilirubin Dipstick Negative (Negative); Urine Clarity Clear (Clear); Urine Urobilinogen Normal (Normal); Urine pH 6.5 (5.0 - 8.0)
[2021-08-22 06:06] LABS: Anion Gap 7 (5-15); BUN 19 mg/dL (7-18); BUN/Creat Ratio 21.4 RATIO (10-20); Calcium,Total 8.6 mg/dL (8.5-10.1); Chloride 110 mmol/L (98-107); Creatinine, Serum 0.89 mg/dL (0.55-1.02); EST Glomerular Filtration Rate 69 mL/min (>60); Est Glom Filt Rate - Afr Amer 83 mL/min (>60); Glucose 97 mg/dL (74-106); Potassium 3.6 mmol/L (3.5-5.1); Sodium Level 141 mmol/L (136-145)
[2021-08-22 06:43] LABS: Red Blood Cells-Urine 0-5 SEEN /hpf (0-5)
[2021-08-22 07:53] VITALS: BP 117/72; PULSE 83; RESP 16; O2SAT 97
== END 2021-08-22 07:54 | disposition home or self-care (01) ==
PROVIDERS: Emergency Provider Emergency Medicine; PCP Internal Medicine
DX: R30.0 Dysuria (principal); J44.9 Chronic obstructive pulmonary disease, unspecified; Z79.51 Long term (current) use of inhaled steroids; Z87.891 Personal history of nicotine dependence; E66.9 Obesity, unspecified
CPT/HCPCS: 80048; 81001; 85027; 99284

== ENCOUNTER 2021-11-22 15:40 | Emergency (ER) | payer MEDICARE, MEDICAID, SELFPAY ==
[2021-11-22 15:41] VITALS: BP 126/81; PULSE 89; RESP 18; TEMP 36.2; O2SAT 97; BMI 36.6
--- NOTE | 2021-11-22 16:12 | ED.VIS.LOWEX ---
HPI History of Present Illness HPI Narrative: Patient presents with right hip pain that has been getting progressively worse over the past week. Patient denies any trauma or injury. Patient states it is worse with laying on her right side and worse with walking. Patient describes her pain as sharp. Patient states nothing has been helping with her pain. Patient states she called her primary care physician's office today to try to get seen for this. Patient states she was unable to get into see her primary care physician today and they told her to come to the emergency department. Chief Complaint: Lower Extremity Injury Informant: patient Onset/Context/Timing Onset: Weeks (1) Context: Gradual Onset Timing: Continuous Quality of Pain: Sharp Worsened by: Laying on right side, walking Relieved by: Nothing Associated Symptoms Associated Symptoms: Negative for Parasthesia, Weakness and Loss of Funtion PFSH [facility] Medical History Asthma COPD (chronic obstructive pulmonary disease) Kidney stone MVP (mitral valve prolapse) Pulmonary embolism Skin cancer Stomach ulcer Home Medications topiramate 50 mg PO TID 07/21/15 [History Last Taken 05/06/19] albuterol sulfate 90 mcg/actuation aerosol inhaler 1 - 2 puff INHALATION Q4H PRN PRN 03/19/20 [History Last Taken Unknown] aripiprazole 5 mg tablet 5 mg PO DAILY 03/19/20 [History Last Taken Unknown] fluticasone 250 mcg-salmeterol 50 mcg/dose blistr powdr for inhalation 1 inh INHALATION DAILY 03/19/20 [History Last Taken Unknown] fluoxetine 10 mg PO DAILY 07/05/20 [History Last Taken Unknown] ibuprofen 600 mg PO Q6H PRN PRN #20 tab 07/05/20 [Rx Last Taken Unknown] multivitamin with minerals 1 ea PO DAILY 01/10/21 [History Last Taken Unknown] dicyclomine 20 mg PO TIDAC #20 capsule 04/11/21 [Rx Last Taken Unknown] ondansetron 8 mg PO Q8H PRN PRN #20 tab 04/11/21 [Rx Last Taken Unknown] lorazepam [Ativan] 1 mg PO BID PRN #10 tab 07/26/21 [Rx Last Taken Unknown] prednisone 40 mg PO DAILY #10 tab 07/26/21 [Rx Last Taken Unknown] phenazopyridine [Pyridium] 200 mg PO TID #10 tab 08/22/21 [Rx Last Taken Unknown] hydrocodone-acetaminophen 1 tab PO Q6H PRN PRN 3 Days #10 tablet 11/22/21 [Rx Last Taken Unknown] Allergy/AdvReac Type Severity Reaction Status Date / Time latex Allergy Itching Verified 11/22/21 15:42 Penicillins Allergy Hives Verified 11/22/21 15:42 Surgical History History of ureter repair Social History Smoking Status: Former smoker alcohol intake: current Alcohol type: beer ROS ROS ED Constitutional Constitutional ED: Denies chills or fever(s) Eyes Eyes: Denies blurry vision or change in vision ENT ENT ED: Denies rhinorrhea or sore throat Cardiovascular Cardiovascular: Denies chest pain or palpitations Respiratory/Chest Respiratory/Chest: Denies cough or dyspnea Gastrointestinal Gastrointestinal: Denies nausea or vomiting Genitourinary Genitourinary ED: Denies dysuria or hematuria Musculoskeletal Musculoskeletal: Denies back pain or neck pain Integumentary Denies abscess or rash Neurologic Neurologic: Denies headache(s) or weakness Allergic/Immunologic Allergic/Immunologic ED: Denies mouth swelling or urticaria EXAM Physical Exam Const Vital Signs: 11/22/21 15:41 Temperature 97.1 F L Temperature Source Temporal Pulse Rate 89 Respiratory Rate 18 Blood Pressure 126/81 H Blood Pressure Mean 96 Pulse Ox 97 Oxygen Delivery Method Room Air Positive well nourished, well developed and obese General Appearance ED: well developed Nutritional Appearance: obese HEENT Reports moist mucous membranes Neck full ROM Extremity Extremity Narrative: There is tenderness over the anterior aspect of the right hip. There is no bony crepitance or step-off. There is no obvious deformity noted. Range of motion was slightly limited in all motions of the right hip secondary to pain. There is pain with resistance with abduction and adduction. There is pain with internal and external rotation. Strength is 5/5 bilaterally in the lower extremities. There are no sensory deficits noted. Neuro oriented x3, CN's II-XII intact bilaterally, moves all extremities and no sensory deficits noted Sensorium / Orientation: alert Motor Exam: strength 5/5 throughout MDM MDM MDM Narrative Medical decision making narrative: X-rays of the right hip were obtained. There are 3 views. On my interpretation, there is no acute fracture or dislocation. There is no soft tissue swelling. Radiologist also interpreted the x-rays and agrees. Patient was advised of her findings. Patient was given a dose of Kenner here. Patient was given a prescription for a short course of Kenner. Patient was instructed to continue ibuprofen or Tylenol as needed for pain. Patient was instructed to follow-up with her primary care physician in 5 to 7 days. Patient was instructed to use ice to the area. Patient understood and was agreeable with the plan. All questions were answered. Radiography X-Ray: Right Hip, Read by ED Physician, Read by Radiologist, Normal, No Fracture and Normal Bony Alignment Diagnostic Testing: Clinical Impression(s) from Imaging Studies Hip/Pelvis X-Ray 11/22/21 16:13 IMPRESSION: Normal x-ray examination of the pelvis and hip. Electronically Signed: Cesario Paredes MD at 16:38 EST , Service support , Discharge Plan Triage Chief Complaint: Lower Extremity Injury ED Provider: Israel Harp Dx/Rx/DC Orders Clinical Impression: Strain of muscle of right hip Instructions: ED Hip Strain Prescriptions: New hydrocodone-acetaminophen [hydrocodone-acetaminophen] 1 TABLET tablet 1 tab PO Q6H PRN PRN (Reason: Pain) 3 Days Qty: 10 RF: 0 No Action fluticasone propion-salmeterol 250-50 mcg/dose blister with device 1 inh INHALATION DAILY RF: 0 topiramate 50 MG tablet 50 mg PO TID RF: 0 aripiprazole 5 mg tablet 5 mg PO DAILY RF: 0 albuterol sulfate 90 mcg/actuation HFA aerosol inhaler 1 - 2 puff inhalation Q4H PRN PRN (Reason: Wheezing) RF: 0 fluoxetine 10 MG capsule 10 mg PO DAILY RF: 0 ibuprofen 600 MG tablet 600 mg PO Q6H PRN PRN (Reason: Pain Score 1-10/10) Qty: 20 RF: 0 multivitamin with minerals 1 EACH tablet 1 ea PO DAILY RF: 0 ondansetron [ondansetron] 4 MG tablet 8 mg PO Q8H PRN PRN (Reason: Nausea) Qty: 20 RF: 0 dicyclomine 10 MG capsule 20 mg PO TIDAC Qty: 20 RF: 0 prednisone 20 mg tablet 40 mg PO DAILY Qty: 10 RF: 0 lorazepam [Ativan] 1 mg tablet 1 mg PO BID PRN (Reason: anxiety) Qty: 10 RF: 0 phenazopyridine [Pyridium] 200 MG tablet 200 mg PO TID Qty: 10 RF: 0 Primary Care Provider: Jo-Ann López Referrals: Jo-Ann López MD [Primary Care Provider] - 3-5 Days Disposition Disposition: Home, Self Care
--- NOTE | 2021-11-22 16:13 | RAD_ITS ---
STUDY: X-RAY - PELVIS AND RIGHT HIP REASON FOR EXAM: Female, 61 years old. right hip pain, radiating down leg x 1 week. increased pain when standing. NKI TECHNIQUE: 3 views of the pelvis and hip. COMPARISON: None. FINDINGS: There is a non-specific bowel gas pattern. Normal visualized soft tissue structures. No visualized fracture or displaced bony fragment. Normal bilateral iliac wings, sacroiliac joints and visualized sacrum. Normal bilateral superior and inferior pubic rami. Normal pubic symphysis. Normal bilateral ischial tuberosities. Normal visualized femoral head. Normal acetabulum. Normal hip joint. RAD/HIP, UNI W/ Pelvis 2-3 Views IMPRESSION: Normal x-ray examination of the pelvis and hip. Electronically Signed: Cesario Paredes MD at 16:38 EST , Service support ,
--- NOTE | 2021-11-22 16:14 | ED.RN ---
PT. DROVE SELF TO ED. PT. INFORMED THAT DOCTOR ORDERED A NORCO BUT BECAUSE IT IS A NARCOTIC, UNABLE TO GIVE MED. BUT PT. ALSO INFORMED THAT IF THEY CAN GET SOMEONE TO PICK THEM UP, PT. CAN BE MEDICATED.
== END 2021-11-22 17:48 | disposition home or self-care (01) ==
PROVIDERS: Emergency Provider Emergency Medicine; PCP Internal Medicine; Visit Provider Emergency Medicine
DX: S76.011A Strain of muscle, fascia and tendon of right hip, initial encounter (principal); E66.9 Obesity, unspecified; Z87.891 Personal history of nicotine dependence; X58.XXXA Exposure to other specified factors, initial encounter
CPT/HCPCS: 73502; 99282

== ENCOUNTER 2021-12-16 13:49 | Emergency (ER) | payer MEDICARE, MEDICAID, SELFPAY ==
[2021-12-16] VITALS (7 sets, daily range): BP systolic 91–128; BP diastolic 47–82; PULSE 76–89; RESP 17–22; TEMP 36.7; O2SAT 96–99; BMI 36.6
[2021-12-16 16:02] LABS: Absolute Lymphocyte Count 2.67 X10^3/uL (0.83-4.51); Absolute Neutrophil Count 3.4 X10^3/uL (2.0-7.7); Basophil# 0.03 X10^3/uL; Basophil% 0.5 % (0-1); Eosinophil# 0.16 X10^3/uL; Eosinophils% 2.4 % (0-5); Hematocrit 39.4 % (37-47); Hemoglobin 12.6 g/dL (12.0-15.0); Lymphocyte # 2.67 X10^3/ul (0.83-4.51); Lymphocyte % 40.2 % (19-41); Mean Corpuscular Hgb 29.6 pg (27.0-32.0); Mean Corpuscular Volume 92.7 fL (81-99); Mean Platelet Vol. 9.9 fl (6.2-12.0); Monocyte# 0.35 X10^3/uL; Monocyte% 5.3 % (0-10); NRBC Flagged by Analyzer 0 % (0-5); Neutrophil # 3.43 X10^3/uL (2.7-7.7); Neutrophil % 51.4 % (47-70); Platelet Count 284 K/mm3 (150-450); RBC Distribution Width CV 13.9 % (11.6-14.6); RBC Distribution Width SD 47.2 fl (35.1-43.9); Red Blood Count 4.25 M/mm3 (4.2-5.4); White Blood Count 6.7 K/mm3 (4.4-11.0)
[2021-12-16 16:17] LABS: Anion Gap 3 (5-15); BUN 13 mg/dL (7-18); Calcium,Total 9.3 mg/dL (8.5-10.1); Chloride 110 mmol/L (98-107); Creatinine, Serum 0.77 mg/dL (0.55-1.02); EST Glomerular Filtration Rate 81 mL/min (>60); Est Glom Filt Rate - Afr Amer 99 mL/min (>60); Estimated Creatinine Clearance 60.68 ml/min; Glucose 92 mg/dL (74-106); Potassium 3.8 mmol/L (3.5-5.1); Sodium Level 141 mmol/L (136-145); Troponin-I HS 4 pg/mL (3.0-54.0)
--- NOTE | 2021-12-16 16:17 | EDS_ITS ---
HPI History of Present Illness Chief Complaint: Abd Pain Detail of Chief Complaint: Right upper quadrant pain and left-sided chest pain Informant: patient Onset/Context/Timing Onset: Days (The right upper quadrant pain started 2 to 3 days ago) and Weeks (The left-sided chest pain started 1 week ago) Context: Sudden Onset (Both occurred abruptly) Timing: Continuous (The right upper quadrant pain is been continuous) and Intermittent (Left-sided chest pain is been intermittent lasting 5 minutes to 60 minutes in duration) Quality: Dull colicky and pain Location: Right upper quadrant and left chest pain Current Severity: Moderate Maximum Severity: Severe Worsened by: Nothing Relieved by: Nothing Associated Symptoms Associated Symptoms: No associated nausea, vomiting, diaphoresis dyspnea, PANIAGUA or radiation Narrative Narrative: Patient is a 61-year-old woman with history of mitral valve prolapse who presents with 2 pains. She thought the right upper quadrant pain was causing the pain in her left anterior chest. The right upper quadrant pain started 2 to 3 days ago. It has been continuous waxes and wanes in intensity and is described as colicky. She is status post cholecystectomy. She has a history of renal and ureteral lithiasis. She denies dysuria, frequency, urgency or hematuria. She denies food intolerance. Her cholecystectomy was performed 3 years ago. She denies history of coronary artery disease. She denies orthopnea or PND. She does report swelling of her lower extremities past several weeks. She has no history of cancer. She denies history of DVT but endorsed history of PE. She presently denies leg pain, swelling or discoloration. She denies black or maroon-colored stool. She denies weight gain or weight loss. She denies night sweats. Prior similar symptoms: No Recent Illness/Hospitalization: No PFSH [facility] Medical History (Updated 12/16/21 @ 19:[address] Lester Marroquin MD) Asthma COPD (chronic obstructive pulmonary disease) Depression Kidney stone MVP (mitral valve prolapse) Pulmonary embolism Skin cancer Stomach ulcer Home Medications topiramate 50 mg PO TID 07/21/15 [History Last Taken 05/06/19] albuterol sulfate 90 mcg/actuation aerosol inhaler 1 - 2 puff INHALATION Q4H PRN PRN 03/19/20 [History Last Taken Unknown] aripiprazole 5 mg tablet 5 mg PO DAILY 05/18/20 [History Last Taken Unknown] fluticasone 250 mcg-salmeterol 50 mcg/dose blistr powdr for inhalation 1 inh INHALATION DAILY 03/19/20 [History Last Taken Unknown] fluoxetine 10 mg PO DAILY 07/05/20 [History Last Taken Unknown] ibuprofen 600 mg PO Q6H PRN PRN #20 tab 07/05/20 [Rx Last Taken Unknown] multivitamin with minerals 1 ea PO DAILY 01/10/21 [History Last Taken Unknown] dicyclomine 20 mg PO TIDAC #20 capsule 04/11/21 [Rx Last Taken Unknown] ondansetron 8 mg PO Q8H PRN PRN #20 tab 04/11/21 [Rx Last Taken Unknown] lorazepam [Ativan] 1 mg PO BID PRN #10 tab 07/26/21 [Rx Last Taken Unknown] prednisone 40 mg PO DAILY #10 tab 07/26/21 [Rx Last Taken Unknown] phenazopyridine [Pyridium] 200 mg PO TID #10 tab 08/22/21 [Rx Last Taken Unknown] hydrocodone-acetaminophen 1 tab PO Q6H PRN PRN 3 Days #10 tablet 11/22/21 [Rx Last Taken Unknown] Allergy/AdvReac Type Severity Reaction Status Date / Time latex Allergy Itching Verified 12/16/21 13:52 Penicillins Allergy Hives Verified 12/16/21 13:52 Surgical History (Updated 12/16/21 @ 16:[address] Lester Marroquin MD) History of cholecystectomy History of ureter repair Social History (Updated 12/16/21 @ 16:[address] Lester Marroquin MD) household members: none Smoking Status: Former smoker alcohol intake: current Alcohol type: beer substance use type: does not use ROS ROS ED Constitutional Constitutional ED: Denies chills, fever(s), subjective, sweats or weight loss Eyes Eyes: Denies blurry vision, change in vision or diplopia ENT ENT ED: Denies ear pain, rhinorrhea or sore throat Cardiovascular Cardiovascular: Reports chest pain; Denies orthopnea, palpitations, paroxysmal nocturnal dyspnea or racing heartbeat Respiratory/Chest Respiratory/Chest: Denies cough, dyspnea, dyspnea on exertion, orthopnea, paroxysmal nocturnal dyspnea or sputum Gastrointestinal Gastrointestinal: Reports abdominal pain; Denies constipation, diarrhea, melena, nausea or vomiting Genitourinary Genitourinary ED: Denies dysuria, hematuria or urinary frequency Musculoskeletal Musculoskeletal: Denies arthralgias, back pain, myalgias or neck pain Integumentary Denies abscess, Abrasions or rash Neurologic Neurologic: Denies headache(s), paresthesias or weakness Psychiatric Psychiatric: Reports depression; Denies anxiety or suicidal thoughts Endocrine Endocrinology: Denies polydipsia, polyphagia or polyuria Allergic/Immunologic Allergic/Immunologic ED: Denies mouth swelling, tongue swelling or urticaria EXAM Physical Exam Const Vital Signs: 12/16/21 13:50 12/16/21 15:49 12/16/21 16:10 Temperature 98.1 F Temperature Source Temporal Pulse Rate 85 76 77 Respiratory Rate 18 20 H 21 H Respiratory Pattern Normal Blood Pressure 128/82 H 121/74 H Blood Pressure Mean 97 89 Pulse Ox 98 Oxygen Delivery Method Room Air Room Air 12/16/21 16:20 12/16/21 16:44 12/16/21 18:00 Temperature Temperature Source Pulse Rate 78 77 89 Respiratory Rate 22 H 20 H 17 Respiratory Pattern Normal Normal Blood Pressure 113/69 Blood Pressure Mean 83 Pulse Ox 96 Oxygen Delivery Method Room Air Positive well nourished, well developed and obese General Appearance ED: well developed and NAD; Negative for cyanotic, diaphoretic or pallor Nutritional Appearance: obese HEENT Reports TM's clear and moist mucous membranes trauma and tenderness Tympanic Membrane ED: Yes TM's clear Eyes PERRL and EOMs intact bilaterally General Eye ED: Negative for pale conjunctiva or scleral icterus Neck No no lymphadenopathy, No supple and No no JVD Chest Wall Negative for inspection of chest normal or palpation of chest normal Resp normal respiratory effort and No clear to auscultation bilaterally Auscultation: rales bilateral base and wheezes expiratory wheezes (Scattered bilaterally) Cardio regular rate, regular rhythm, S1 normal heart sound, S2 normal heart sound and no murmurs GI normal to inspection, nondistended, normoactive bowel sounds and non-distended; Negative for non-tender Palpation: soft and tender RLQ Back/Spine General Back: CVA tenderness right Cervical Spine: Negative for cervical spine tenderness Thoracic Spine / Upper Back: Negative for thoracic spinal tenderness or paraspinal muscle tenderness Lumbar Spine / Lower Back: Negative for lumbar spinal tenderness Extremity normal to inspection Extremity Narrative: 1+ pitting General Extremety ED: Yes edema; Negative for tenderness General Extremity: edema Neuro oriented x3, CN's II-XII intact bilaterally and no sensory deficits noted Sensorium / Orientation: alert Motor Exam: strength 5/5 throughout Psych mental status grossly normal Skin no rashes or lesions noted and no wounds General Skin Exam: Negative for jaundice or pallor MDM MDM MDM Narrative Medical decision making narrative: The right upper quadrant/flank pain may be due to infection versus obstructing stone versus obstructing stone with infection. Chest pain may be related to the mitral valve prolapse. Since she is 61 will obtain EKG and troponin to evaluate for cardiac etiology. This may also represent GI etiology. Lab Data Attestation: I reviewed the patient's lab results. Lab results narrative: CBC, H&H and differential are unremarkable. Basic metabolic panel is unremarkable. First troponin is 4. Second troponin is 5 with a delta less than 7 therefore negative predictive value is 100% and will discharge to home since CAT scan does not reveal any abnormality to explain patient's pain. Labs: Laboratory Results - last 24 hr 12/16/21 12/16/21 12/16/21 15:40 15:40 16:05 WBC 6.7 RBC 4.25 Hgb 12.6 Hct 39.4 MCV 92.7 MCH 29.6 MCHC 32.0 RDW Std Deviation 47.2 H RDW Coeff of Bruna 13.9 Plt Count 284 MPV 9.9 Immature Gran % (Auto) 0.200 Neut % (Auto) 51.4 Lymph % (Auto) 40.2 [place] % (Auto) 5.3 Eos % (Auto) 2.4 Baso % (Auto) 0.5 Absolute Neuts (auto) 3.4 Absolute Lymphs (auto) 2.67 Nucleated RBC % 0 Sodium 141 Potassium 3.8 Chloride 110 H Carbon Dioxide 28.0 Anion Gap 3 L BUN 13 Creatinine 0.77 Estim Creat Clear Calc 60.68 Est GFR (MDRD) Af Amer 99 Est GFR (MDRD) Non-Af 81 BUN/Creatinine Ratio 17.0 Glucose 92 Calcium 9.3 Troponin I High Sens 4 Urine Color Yellow Urine Clarity Sl. Cloudy Urine pH 7.0 Ur Specific [place] 1.015 Urine Protein Negative Urine Glucose (UA) Normal Urine Ketones Negative Urine Occult Blood 150 H Urine Nitrite Negative Urine Bilirubin Negative Urine Urobilinogen Normal Ur Leukocyte Esterase 25 H Urine RBC 0-5 SEEN Urine WBC 0-5 SEEN Ur Squamous Epith Cells 0-5 SEEN Amorphous Sediment 2+ Urine Bacteria RARE Urine Mucus 0 SEEN 12/16/21 18:35 WBC RBC Hgb Hct MCV MCH MCHC RDW Std Deviation RDW Coeff of Bruna Plt Count MPV Immature Gran % (Auto) Neut % (Auto) Lymph % (Auto) [place] % (Auto) Eos % (Auto) Baso % (Auto) Absolute Neuts (auto) Absolute Lymphs (auto) Nucleated RBC % Sodium Potassium Chloride Carbon Dioxide Anion Gap BUN Creatinine Estim Creat Clear Calc Est GFR (MDRD) Af Amer Est GFR (MDRD) Non-Af BUN/Creatinine Ratio Glucose Calcium Troponin I High Sens 5 Urine Color Urine Clarity Urine pH Ur Specific [place] Urine Protein Urine Glucose (UA) Urine Ketones Urine Occult Blood Urine Nitrite Urine Bilirubin Urine Urobilinogen Ur Leukocyte Esterase Urine RBC Urine WBC Ur Squamous Epith Cells Amorphous Sediment Urine Bacteria Urine Mucus Radiography Chest X-Ray - ED: 2 View and Read by ED Physician (Minimal chronic changes with normal cardiac silhouette and size. Perihilar regions unremarkable. There is no infiltrate or effusion noted. There is no pneumothorax. Osseous structures reveal no acute process. Interpreted by me at 1713.) Diagnostic Testing: Clinical Impression(s) from Imaging Studies Chest X-Ray 12/16/21 17:10 IMPRESSION: No radiographic evidence of acute cardiopulmonary disease. at 1721 Reported and signed by: Armando Perez MD Electronically Signed: Armando Perez MD at 17:20 EST Reading Location ID and State: [facility] / [place] Tel , Service support , Abdomen/Pelvis CT 12/16/21 17:37 IMPRESSION: No acute findings in the abdomen or pelvis. No nephrolithiasis or obstructive uropathy. Individualized dose optimization techniques were used for this CT. at 1854 Reported and signed by: Armando Perez MD Electronically Signed: Armando Perez MD at 18:53 EST , EKG Initial EKG: Attestation: I personally reviewed and interpreted this EKG as follows: Discharge Plan Triage Chief Complaint: Abd Pain ED Provider: Lester Marroquin Dx/Rx/DC Orders Clinical Impression: Right upper quadrant abdominal pain, Intermittent left-sided chest pain Instructions: ED Abdominal Pain Unkn Cause Fem, ED Chest Pain, Noncardiac, ED Chest Pain, Uncertain Cause Prescriptions: No Action fluticasone propion-salmeterol 250-50 mcg/dose blister with device 1 inh INHALATION DAILY RF: 0 topiramate 50 MG tablet 50 mg PO TID RF: 0 aripiprazole 5 mg tablet 5 mg PO DAILY RF: 0 albuterol sulfate 90 mcg/actuation HFA aerosol inhaler 1 - 2 puff inhalation Q4H PRN PRN (Reason: Wheezing) RF: 0 fluoxetine 10 MG capsule 10 mg PO DAILY RF: 0 ibuprofen 600 MG tablet 600 mg PO Q6H PRN PRN (Reason: Pain Score 1-10/10) Qty: 20 RF: 0 multivitamin with minerals 1 EACH tablet 1 ea PO DAILY RF: 0 ondansetron [ondansetron] 4 MG tablet 8 mg PO Q8H PRN PRN (Reason: Nausea) Qty: 20 RF: 0 dicyclomine 10 MG capsule 20 mg PO TIDAC Qty: 20 RF: 0 prednisone 20 mg tablet 40 mg PO DAILY Qty: 10 RF: 0 lorazepam [Ativan] 1 mg tablet 1 mg PO BID PRN (Reason: anxiety) Qty: 10 RF: 0 phenazopyridine [Pyridium] 200 MG tablet 200 mg PO TID Qty: 10 RF: 0 hydrocodone-acetaminophen [hydrocodone-acetaminophen] 1 TABLET tablet 1 tab PO Q6H PRN PRN (Reason: Pain) 3 Days Qty: 10 RF: 0 Primary Care Provider: Jo-Ann López Referrals: Jo-Ann López MD [Primary Care Provider] - 3-5 Days if not improving Disposition Disposition: Home, Self Care
[2021-12-16] MEDS: Morphine 4 MG/ML Syringe IV (16:29)
[2021-12-16 16:30] LABS: Color, Urine Yellow (Yellow); Glucose, Dipstick Normal (Normal); Ketone-Dipstick Negative (Negative); Leukocyte Esterase-Dipstick 25 /ul (Negative); Mucous, Urine 0 SEEN /hpf (<or=2+); Nitrite-Dipstick Negative (Negative); Occult Blood-Urine 150 /ul (Negative); Protein-Dipstick Negative (Negative); Specific Gravity, Urine 1.015 (1.002-1.030); Urine Bilirubin Dipstick Negative (Negative); Urine Clarity Sl. Cloudy (Clear); Urine Urobilinogen Normal (Normal)
[2021-12-16] MEDS: 0.9% Normal Saline 1,000 ML 150 ML IV (16:30)
[2021-12-16] MEDS: Ondansetron 4 MG/2 ML Vial IV (16:30)
[2021-12-16] MEDS: Ipratropium/Albuterol Sulfate 3 ML AMPUL.NEB INHALATION (16:35)
[2021-12-16] MEDS: Albuterol 2.5 MG/3 ML VIAL.NEB. INHALATION ×3 (16:45→17:00)
[2021-12-16 16:53] LABS: Red Blood Cells-Urine 0-5 SEEN /hpf (0-5); White Blood Cells 0-5 SEEN /hpf (0-5)
[2021-12-16 16:54] LABS: Amorphous Sediment 2+; Bacteria RARE /hpf (None Seen); Squamous Epithelial Cells - UA 0-5 SEEN /hpf (5-10)
--- NOTE | 2021-12-16 17:10 | RAD_ITS ---
HISTORY: CHEST PAIN, WHEEZING, RALES EXAMINATION/TECHNIQUE: XR Chest 2 Views: 2 views COMPARISON: 03/17/20 FINDINGS: LINES/DEVICES: None. LUNGS: No pulmonary consolidation, mass, or edema. No pleural effusion or pneumothorax. MEDIASTINUM AND CARDIOVASCULAR STRUCTURES: Cardiac silhouette not enlarged. Central airways and mediastinal contour are unremarkable. BONES AND SOFT TISSUES: No acute bony abnormalities. RAD/Chest PA and Lateral IMPRESSION: No radiographic evidence of acute cardiopulmonary disease. at 1721 Reported and signed by: Armando Perez MD Electronically Signed: Armando Perez MD at 17:20 EST ,
--- NOTE | 2021-12-16 17:37 | CT_ITS ---
HISTORY: Kidney Stone -- Right sided pain EXAMINATION: CT Abdomen And Pelvis W/O Contrast Injection TECHNIQUE: Multiple axial images were obtained of the abdomen and pelvis without oral or IV contrast. A radiation dose optimization technique was used for this scan. IV Contrast dosage and agent: None. Oral contrast: None. COMPARISON: 04/11/21 FINDINGS: LOWER CHEST: Stable fibrotic changes right middle lobe. No cardiomegaly or pericardial effusion. LIVER: Stable small low-attenuation lesions. No focal mass. GALLBLADDER AND BILIARY TREE: Gallbladder absent. No intra- or extrahepatic biliary ductal dilation. PANCREAS: No focal cystic or solid mass. SPLEEN: Normal size without focal cystic or solid mass. ADRENAL GLANDS: No nodules. KIDNEYS AND URETERS: Normal renal size and position. No hydronephrosis or nephrolithiasis. PERITONEUM: No ascites or free air. BOWEL: Normal appendix. No stomach or bowel distension. No focal inflammatory bowel wall changes. LYMPH NODES: No enlarged mesenteric or retroperitoneal lymph nodes. VESSELS: Aorta is non-dilated. URINARY BLADDER: Unremarkable. REPRODUCTIVE ORGANS: No pelvic masses. Uterus absent. ABDOMINAL WALL: Small fat-containing umbilical hernia. BONES: No acute or aggressive abnormality. CT/Abdomen/Pelvis without Cont IMPRESSION: No acute findings in the abdomen or pelvis. No nephrolithiasis or obstructive uropathy. Individualized dose optimization techniques were used for this CT. at 1854 Reported and signed by: Armando Perez MD Electronically Signed: Armando Perez MD at 18:53 EST ,
[2021-12-16 19:03] LABS: Troponin-I HS 5 pg/mL (3.0-54.0)
--- NOTE | 2021-12-16 20:29 | ED.RN ---
THIS NURSE REVIEWED D/C INSTRUCTIONS WITH PT AND VISITOR. BOTH VERBALIZED UNDERSTANDING OF INSTRUCTIONS. IV D/C. IV CATHETER INTACT. PT TOLERATED WELL. PT DENIES FURTHER NEEDS OR QUESTIONS AT THIS TIME. PT AMBULATES FROM ROOM ON OWN WITHOUT ASSISTANCE FROM STAFF
== END 2021-12-16 20:30 | disposition home or self-care (01) ==
PROVIDERS: Emergency Provider Emergency Medicine; PCP Internal Medicine; Visit Provider Emergency Medicine
DX: R10.11 Right upper quadrant pain (principal); R07.9 Chest pain, unspecified; E66.9 Obesity, unspecified; Z87.891 Personal history of nicotine dependence
CPT/HCPCS: 71046; 74176; 80048; 81001; 84484; 85025; 94640; 96361; 96374; 96375; 99283; J7030; J2405

== ENCOUNTER 2022-02-19 09:29 | Emergency (ER) | payer MEDICARE, MEDICAID, SELFPAY ==
[2022-02-19 09:30] VITALS: BP 131/77; PULSE 92; RESP 17; TEMP 35.6; O2SAT 99; BMI 38.8
--- NOTE | 2022-02-19 09:45 | RAD_ITS ---
STUDY: X-RAY - RIGHT KNEE REASON FOR EXAM: Chronic right knee pain, no specific injury. TECHNIQUE: 4 view(s) of the knee. COMPARISON: Radiographs 10/21/2019. FINDINGS: Normal visualized distal femur. Normal visualized proximal tibia and fibula. Normal proximal tibiofibular articulation. Normal medial femorotibial compartment. Normal lateral femorotibial compartment. There is mild joint space narrowing of the patellofemoral articulation. The soft tissue structures are unremarkable. RAD/Knee 4 or More Views IMPRESSION: Mild patellofemoral arthrosis. Electronically Signed: Jos Ball MD at 10:41 EDT ,
--- NOTE | 2022-02-19 09:52 | EDS_ITS ---
HPI History of Present Illness Chief Complaint: Lower Extremity Injury Detail of Chief Complaint: Right knee pain. Informant: patient Onset/Context/Timing Onset: Month(s) Context: Gradual Onset Timing: Continuous Quality of Pain: Sharp Current Severity: Mild Maximum Severity: Mild Associated Symptoms Associated Symptoms: Negative for Parasthesia, Weakness and Loss of Funtion Narrative Narrative: 61-year-old female history of mitral valve prolapse. States the last 2 months she has had knee pain. Worse with ambulating. Denies any fever or redness. No swelling. She said a year ago she fell and had physical therapy for her knee at that time and fell several months ago during the winter. She has never had any prior right leg knee or hip surgery. She does have an upcoming evaluation for her right hip by an orthopedic physician. Prior similar symptoms: Yes Recent Illness/Hospitalization: No PFSH PFSH Medical History Asthma COPD (chronic obstructive pulmonary disease) Depression Kidney stone MVP (mitral valve prolapse) Pulmonary embolism Skin cancer Stomach ulcer Home Medications topiramate 50 mg PO TID 07/21/15 [History Last Taken 05/06/19] albuterol sulfate 90 mcg/actuation aerosol inhaler 1 - 2 puff INHALATION Q4H PRN PRN 03/19/20 [History Last Taken Unknown] aripiprazole 5 mg tablet 5 mg PO DAILY 03/19/20 [History Last Taken Unknown] fluticasone 250 mcg-salmeterol 50 mcg/dose blistr powdr for inhalation 1 inh INHALATION DAILY 03/19/20 [History Last Taken Unknown] fluoxetine 10 mg PO DAILY 07/05/20 [History Last Taken Unknown] ibuprofen 600 mg PO Q6H PRN PRN #20 tab 07/05/20 [Rx Last Taken Unknown] multivitamin with minerals 1 ea PO DAILY 01/10/21 [History Last Taken Unknown] dicyclomine 20 mg PO TIDAC #20 capsule 04/11/21 [Rx Last Taken Unknown] ondansetron 8 mg PO Q8H PRN PRN #20 tab 04/11/21 [Rx Last Taken Unknown] lorazepam [Ativan] 1 mg PO BID PRN #10 tab 07/26/21 [Rx Last Taken Unknown] prednisone 40 mg PO DAILY #10 tab 07/26/21 [Rx Last Taken Unknown] phenazopyridine [Pyridium] 200 mg PO TID #10 tab 08/22/21 [Rx Last Taken Unknown] hydrocodone-acetaminophen 1 tab PO Q6H PRN PRN 3 Days #10 tablet 11/22/21 [Rx Last Taken Unknown] Allergy/AdvReac Type Severity Reaction Status Date / Time latex Allergy Itching Verified 02/19/22 09:29 Penicillins Allergy Hives Verified 02/19/22 09:29 Surgical History History of cholecystectomy History of ureter repair Social History household members: none Smoking Status: Former smoker alcohol intake: current Alcohol type: beer substance use type: does not use ROS ROS ED ROS Narrative Denies. Review of Systems ROS Unobtainable: Denies due to encephalopathy Constitutional Constitutional ED: Denies fever(s) Eyes Eyes: Denies change in vision ENT ENT ED: Denies ear pain Cardiovascular Cardiovascular: Denies chest pain Respiratory/Chest Respiratory/Chest: Denies cough or dyspnea Gastrointestinal Gastrointestinal: Denies abdominal pain, diarrhea, nausea or vomiting Genitourinary Genitourinary ED: Denies dysuria Musculoskeletal Musculoskeletal: Denies myalgias Integumentary Denies rash Neurologic Neurologic: Denies headache(s) Psychiatric Psychiatric: Denies depression Endocrine Endocrinology: Denies polyuria Hematologic/Lymphatic Hematologic/Lymphatic: Denies easy bruising Allergic/Immunologic Allergic/Immunologic ED: Denies urticaria EXAM Physical Exam Narrative Exam Narrative: 61-year-old female no acute distress. Vital signs stable afebrile. Exam normal. Right knee no swelling. No effusion. Full flexion extension. Can extend to 90 degrees. ACL, PCL, MCL and LCL are intact. She can lift the leg off the bed. Extensor mechanism is intact. There is no redness or warmth. Hip exam unremarkable. Normal dorsi plantar flexion. Right knee exam is normal. Const Vital Signs: 02/19/22 09:30 Temperature 96.0 F L Temperature Source Temporal Pulse Rate 92 Respiratory Rate 17 Blood Pressure 131/77 H Blood Pressure Mean 95 Pulse Ox 99 Oxygen Delivery Method Room Air Positive well nourished, well developed and obese; Negative for cachectic, contractures or unkempt General Appearance ED: well developed and NAD; Negative for unkempt, cachectic or contractures Nutritional Appearance: obese; Negative for cachectic HEENT Reports moist mucous membranes normocephalic and atraumatic; Negative for trauma or tenderness Eyes PERRL Neck full ROM and supple Thyroid: Negative for tender Chest Wall inspection of chest normal and palpation of chest normal Resp normal respiratory effort, no retractions and clear to auscultation bilaterally Auscultation: Negative for rales, rhonchi or wheezes Cardio regular rate, regular rhythm, S1 normal heart sound, S2 normal heart sound and no murmurs GI non-tender, non-distended and no masses Auscultation: normoactive bowel sounds Palpation: soft; Negative for tender, guarding or rebound tenderness present Back/Spine no CVA tenderness General Back: Negative for CVA tenderness Cervical Spine: Negative for cervical spine tenderness Thoracic Spine / Upper Back: Negative for thoracic spinal tenderness Extremity normal to inspection and full ROM General Extremety ED: Negative for cyanosis or edema General Extremity: Negative for cyanosis or edema Psych mental status grossly normal Appearance: Negative for unkempt Mood & Affect: Negative for anxious Skin no wounds Lesions: no lesions Rashes: no rashes Trauma: Negative for abrasion or laceration MDM MDM MDM Narrative Medical decision making narrative: Patient with atraumatic knee pain for the last several months. Clinically I suspect possible arthritis. There is no signs of infection. She has normal range of motion. X-ray being obtained. Repeat exam no change at 10:28 AM. Discussed x-ray results with patient. Motrin and ice. Outpatient follow-up. If pain continues may need an MRI. Radiography Diagnostic Testing: Right knee x-ray shows no acute abnormality. There may be very minimal medial joint space narrowing. No bony deformity. No other significant signs of arthritis. No fracture. No effusion. 4 views interpreted by myself. Procedures Other Procedures Procedure(s): Knee joint injection: Patient requested a knee joint injection. She and I went over the pros and cons of risk of infection. She wanted to proce ed. Knee was cleaned with iodine. Using a medial approach I injected 10 cc of lidocaine and Kenalog. She did flexion extension of the knee and started getting relief within minutes. She will follow-up with her orthopedic physician but cannot get into see them until April. Discharge Plan Triage Chief Complaint: Lower Extremity Injury ED Provider: Stefan Correa Dx/Rx/DC Orders Clinical Impression: Chronic knee pain Instructions: ED Knee Pain of Uncertain Cause Prescriptions: No Action fluticasone propion-salmeterol 250-50 mcg/dose blister with device 1 inh INHALATION DAILY RF: 0 topiramate 50 MG tablet 50 mg PO TID RF: 0 aripiprazole 5 mg tablet 5 mg PO DAILY RF: 0 albuterol sulfate 90 mcg/actuation HFA aerosol inhaler 1 - 2 puff inhalation Q4H PRN PRN (Reason: Wheezing) RF: 0 fluoxetine 10 MG capsule 10 mg PO DAILY RF: 0 ibuprofen 600 MG tablet 600 mg PO Q6H PRN PRN (Reason: Pain Score 1-10/10) Qty: 20 RF: 0 multivitamin with minerals 1 EACH tablet 1 ea PO DAILY RF: 0 ondansetron [ondansetron] 4 MG tablet 8 mg PO Q8H PRN PRN (Reason: Nausea) Qty: 20 RF: 0 dicyclomine 10 MG capsule 20 mg PO TIDAC Qty: 20 RF: 0 prednisone 20 mg tablet 40 mg PO DAILY Qty: 10 RF: 0 lorazepam [Ativan] 1 mg tablet 1 mg PO BID PRN (Reason: anxiety) Qty: 10 RF: 0 phenazopyridine [Pyridium] 200 MG tablet 200 mg PO TID Qty: 10 RF: 0 hydrocodone-acetaminophen [hydrocodone-acetaminophen] 1 TABLET tablet 1 tab PO Q6H PRN PRN (Reason: Pain) 3 Days Qty: 10 RF: 0 Primary Care Provider: Jo-Ann López Referrals: Jo-Ann López MD [Primary Care Provider] - 1 Week if not improving Activity Restrictions/Additional Instructions: Ice to your knee and Motrin for pain and inflammation. If is not improving follow-up with your doctor or your orthopedic physician to determine if they want to get an MRI just to make sure that there is no type of meniscal tear or other injury that does not show up on the x-ray. Disposition Disposition: Home, Self Care
[2022-02-19] MEDS: Lidocaine 1% (20 ml mdv) 20 ML Vial 10 ML INFILT (11:06)
[2022-02-19] MEDS: Triamcinolone Acetonide 40 MG/ML Vial INTRAARTIC (11:06)
== END 2022-02-19 11:08 | disposition home or self-care (01) ==
PROVIDERS: Emergency Provider Emergency Medicine; PCP Internal Medicine; Visit Provider Emergency Medicine
DX: M25.561 Pain in right knee (principal); J44.9 Chronic obstructive pulmonary disease, unspecified; G89.29 Other chronic pain; Z87.891 Personal history of nicotine dependence; Z87.442 Personal history of urinary calculi; F32.A Depression, unspecified; Z86.711 Personal history of pulmonary embolism; Z87.19 Personal history of other diseases of the digestive system; Z85.828 Personal history of other malignant neoplasm of skin; I34.1 Nonrheumatic mitral (valve) prolapse; Z79.899 Other long term (current) drug therapy; E66.9 Obesity, unspecified; Z68.38 Body mass index [BMI] 38.0-38.9, adult
CPT/HCPCS: 20610; 73564; 99282

== ENCOUNTER 2022-03-17 12:04 | Day surgery (SDC) | payer MEDICARE, SELFPAY ==
[2022-03-17 12:40] VITALS: BP 95/64; PULSE 75; RESP 16; TEMP 36.6; O2SAT 98; BMI 37.9
[2022-03-17] MEDS: Lactated Ringers 1,000 ML 15 ML IV (12:59)
--- NOTE | 2022-03-17 13:43 | PCM.DC.SUM ---
Providers Primary Care Physician: Dr. Jo-Ann López MD Reason For Visit: CLOSED REDUCTION NASAL FX Medications at Discharge Home Medications topiramate 50 mg PO TID 07/21/15 albuterol sulfate 90 mcg/actuation aerosol inhaler 1 - 2 puff INHALATION Q4H PRN PRN 03/19/20 aripiprazole 5 mg tablet 5 mg PO DAILY 03/19/20 celecoxib [Celebrex] 200 mg PO BID 03/17/22 duloxetine 30 mg PO BID 03/17/22 fluticasone furoate-vilanterol [Breo Ellipta] 1 inh INHALATION DAILY 03/17/22 furosemide 20 mg PO .SEE INSTRUCTIONS 03/17/22 gabapentin 300 mg PO .SEE INSTRUCTIONS 03/17/22 hydroxyzine pamoate 50 mg PO DAILY PRN PRN 03/17/22 Weight / BMI Weight Weight: 94 kg Body Mass Index (BMI) 37.9 D/C Instructions Discharge Diet: No restrictions Additional Dressing/Incision Instructions: Keep the splint on as long as possible. It will fall off on its own. Meaningful Use Info Meaningful Use Diagnoses (Choose all that apply): None applicable Discharge Plan Admission Attending Provider: Frandy Gilman Primary Care Provider: Jo-Ann López Discharge Orders/Prescriptions Prescriptions: No Action topiramate 50 MG tablet 50 mg PO TID RF: 0 aripiprazole [Abilify] 5 mg tablet 5 mg PO DAILY RF: 0 albuterol sulfate 90 mcg/actuation HFA aerosol inhaler 1 - 2 puff inhalation Q4H PRN PRN (Reason: Wheezing) RF: 0 duloxetine 20 mg capsule,delayed release(DR/EC) 30 mg PO BID RF: 0 Breo Ellipta 100-25 mcg/dose blister with device 1 inh INHALATION DAILY RF: 0 celecoxib [Celebrex] 200 mg Capsule 200 mg PO BID RF: 0 hydroxyzine pamoate 50 mg capsule 50 mg PO DAILY PRN PRN (Reason: Anxiety) RF: 0 gabapentin 300 mg capsule 300 mg PO .SEE INSTRUCTIONS RF: 0 furosemide 20 mg tablet 20 mg PO .SEE INSTRUCTIONS RF: 0
[2022-03-17] MEDS: Oxymetazoline 0.05% 1 SPRAY SPRAY.BTL 15 SPRAY (13:51)
--- NOTE | 2022-03-17 14:10 | PCM.OPRPT ---
Report of Operation Date of Procedure: 03/17/22 Pre-Operative Diagnosis: nasal fracture Post-Operative Diagnosis: same Surgery/Procedure Performed:: closed nasal reduction Surgeon: Frandy Gilman Type of Anesthesia: General Anesthesiologist: Shimon Love Estimated Blood Loss (mL): minimal Description of Procedure: The patient was taken to the operating room on 03/17/2022. She was placed in the supine position on the operating table. She was given sufficient general anesthesia. The head of bed is elevated 30 degrees. The nose was decongested with Afrin pledgets. The pledgets were then removed. A joker elevator inserted the patient's left nasal cavity and the bones were displaced laterally. I then placed pressure on the right dorsum until we had midline reduction. Hemostasis was achieved with Afrin pledgets as well as Anne powder. Blood was suctioned from the oropharynx. A Eloy nasal splint was applied. The patient then awoken brought to recovery in stable condition blood loss minimal, replacement none. Sponge, needle, and instrument count correct at the end the procedure.
[2022-03-17 14:21] VITALS: BP 130/85; BP 148/83; PULSE 73; RESP 16; TEMP 36.8; O2SAT 97
[2022-03-17 14:30] VITALS: BP 104/66; BP 130/85; PULSE 73; RESP 16; O2SAT 95
[2022-03-17 14:45] VITALS: BP 130/85; BP 131/81; PULSE 65; RESP 16; O2SAT 96
[2022-03-17 14:54] VITALS: BP 130/85; BP 149/83; PULSE 70; RESP 16; TEMP 36.6; O2SAT 95
[2022-03-17] MEDS: Acetaminophen 325 MG Tablet 650 MG PO (15:15)
[2022-03-17 15:20] VITALS: BP 130/85
== END 2022-03-17 15:20 | disposition home or self-care (01) ==
LOC: SDC 12:06 → AC 12:14
PROVIDERS: PCP Internal Medicine; Visit Provider Otolaryngology
PROC: 0NSBXZZ Reposition Nasal Bone, External Approach (ICD-10-PCS; principal; 2022-03-17 13:40)
DX: S02.2XXA Fracture of nasal bones, initial encounter for closed fracture (principal); F31.9 Bipolar disorder, unspecified; J34.2 Deviated nasal septum; Y04.8XXA Assault by other bodily force, initial encounter; Y93.9 Activity, unspecified; Y99.9 Unspecified external cause status; Y92.9 Unspecified place or not applicable; J45.909 Unspecified asthma, uncomplicated; Z87.19 Personal history of other diseases of the digestive system; Z79.899 Other long term (current) drug therapy; G43.909 Migraine, unspecified, not intractable, without status migrainosus; R06.02 Shortness of breath; F17.210 Nicotine dependence, cigarettes, uncomplicated
CPT/HCPCS: 21320; J7120

== ENCOUNTER 2022-04-26 13:38 | Emergency (ER) | payer MEDICARE, SELFPAY ==
[2022-04-26 13:39] VITALS: BP 125/85; PULSE 110; RESP 16; TEMP 36.9; O2SAT 99; BMI 36.6
--- NOTE | 2022-04-26 14:57 | RAD_ITS ---
STUDY: X-RAY CHEST REASON FOR EXAM: Female, 61 years old. cough TECHNIQUE: PA and lateral views of the chest. COMPARISON: 12/16/2021 FINDINGS: The lungs are clear and expanded. There is no demonstrated pleural abnormality. Normal size heart. Normal mediastinum and marissa. Normal visualized pulmonary arteries. Normal visualized aortic arch and descending thoracic aorta. There are diffuse degenerative changes of the visualized thoracic spine. Normal visualized ribs, clavicles, and shoulders. There is no demonstrated abnormality of the visualized soft tissue structures of the upper abdomen. RAD/Chest PA and Lateral IMPRESSION: Nonacute x-ray examination of the chest. Electronically Signed: Desean Saavedra MD ([place]) at 16:59 EDT ,
--- NOTE | 2022-04-26 14:58 | EX.ED.DYSGE1 ---
HPI History of Present Illness Chief Complaint: General Illness Informant: patient Narrative Narrative: Patient states that she has had about 3 maybe 4 days of cough, congestion, mild sore throat, slight myalgias. No fevers or chills. No sputum production. She does have a history of asthma and has been wheezing slightly more. She has all her meds. She denies any heart history. She has had 3 COVID vaccines. She does not know of anyone that she has been around who is ill. Eating and drinking normally. Nothing specifically makes her symptoms better or worse. She was encouraged to not smoke [facility] Medical History Asthma Bipolar disorder COPD (chronic obstructive pulmonary disease) Depression Easy bruising Heartburn History of echocardiogram History of edema History of IBS History of stress test Injury of head and neck Kidney stone Leg cramps Low iron Migraine headache MVP (mitral valve prolapse) Pulmonary embolism Shortness of breath on exertion Skin cancer Smoker Stomach ulcer Wears glasses Home Medications topiramate 50 mg tablet 50 mg PO TID migraines 07/21/15 [History Last Taken 05/06/19] albuterol sulfate 90 mcg/actuation aerosol inhaler 1 - 2 puff inhalation Q4H PRN PRN Wheezing 03/19/20 [History Last Taken Unknown] aripiprazole 5 mg tablet (Abilify) 5 mg PO DAILY 03/19/20 [History Last Taken 03/17/22 08:00] celecoxib 200 mg capsule (Celebrex) 200 mg PO BID inflamation 03/17/22 [History Last Taken Unknown] duloxetine 20 mg capsule,delayed release 30 mg PO BID depression 03/17/22 [History Last Taken Unknown] fluticasone furoate 100 mcg-vilanterol 25 mcg/dose inhalation powder (Breo Ellipta) 1 inh inhalation DAILY 03/17/22 [History Last Taken Unknown] furosemide 20 mg tablet 20 mg PO .SEE INSTRUCTIONS 03/17/22 [History Last Taken Unknown] gabapentin 300 mg capsule 300 mg PO .SEE INSTRUCTIONS 03/17/22 [History Last Taken Unknown] hydroxyzine pamoate 50 mg capsule 50 mg PO DAILY PRN PRN Anxiety 03/17/22 [History Last Taken Unknown] albuterol sulfate 2.5 mg (3 mL) inhalation Q4H PRN #25 vials 04/26/22 [Rx Last Taken Unknown] albuterol sulfate 90 mcg/actuation aerosol inhaler (Ventolin HFA) 2 puff inhalation Q4H PRN PRN Wheezing ##1 04/26/22 [Rx Last Taken Unknown] prednisone 20 mg tablet 60 mg PO DAILY 4 days #12 tabs 04/26/22 [Rx Last Taken Unknown] Allergy/AdvReac Type Severity Reaction Status Date / Time latex Allergy Itching Verified 04/26/22 13:42 Penicillins Allergy Hives Verified 04/26/22 13:42 Surgical History History of cholecystectomy History of foot surgery History of hysterectomy History of surgery on lower extremity History of ureter repair Social History household members: none Smoking Status: Current every day smoker tobacco type: cigarettes alcohol intake: current Alcohol type: beer substance use type: does not use ROS ROS ED Constitutional Constitutional ED: Denies chills, fever(s), subjective, sweats or weight loss Eyes Eyes: Denies change in vision ENT ENT ED: Reports rhinorrhea and sore throat; Denies ear pain Cardiovascular Cardiovascular: Denies chest pain or palpitations Respiratory/Chest Respiratory/Chest: Denies cough, dyspnea, dyspnea on exertion or sputum Gastrointestinal Gastrointestinal: Denies abdominal pain, nausea or vomiting Genitourinary Genitourinary ED: Denies dysuria Musculoskeletal Musculoskeletal: Reports myalgias Integumentary Denies rash Neurologic Neurologic: Denies paresthesias or weakness Endocrine Endocrinology: Denies polydipsia or polyuria Allergic/Immunologic Allergic/Immunologic ED: Denies urticaria EXAM Physical Exam Const Vital Signs: 04/26/22 13:39 04/26/22 13:52 04/26/22 15:07 Temperature 98.5 F Temperature Source Temporal Pulse Rate 110 H 87 Respiratory Rate 16 18 Respiratory Effort Normal Respiratory Pattern Normal Blood Pressure 125/85 H Blood Pressure Mean 98 Pulse Ox 99 Oxygen Delivery Method Room Air Positive well nourished and well developed Constitutional Narrative: Patient sitting quietly in the bed. She carries on a normal conversation. She is very nontoxic. General Appearance ED: well developed and NAD HEENT Reports moist mucous membranes HEENT Narrative: No exudate. Voice is normal. Minimal erythema of the pharynx. No lymphadenopathy. No sinus tenderness. Mild nasal congestion. No rash of her face Eyes EOMs intact bilaterally Neck no lymphadenopathy and no JVD Neck Narrative: No stridor. Resp normal respiratory effort Resp Narrative: Mild expiratory wheeze. No rhonchi or rales Auscultation: wheezes; Negative for rales or rhonchi Cardio regular rate and regular rhythm GI normal to inspection, nondistended, normoactive bowel sounds and non-tender Palpation: soft Back/Spine no CVA tenderness Extremity normal to inspection Extremity Narrative: No edema cords or tenderness. Equal pulses General Extremety ED: Negative for edema or tenderness General Extremity: Negative for edema Neuro oriented x3 Psych mental status grossly normal Skin no rashes or lesions noted MDM MDM MDM Narrative Medical decision making narrative: Patient's influenza is negative but her COVID is positive. She is approximately day 4 of this. Although she has mild asthma, she is not a significant high risk patient. She has been vaccinated. She has also had a booster. With her wheezing, we will start steroids. This is primarily focused at her bronchospasm and wheezing not the COVID. I talked with her about the option of Paxlovid. Her only real potential risk factor is asthma. She has a nebulizer but almost never uses it unless she is sick. She is out of medicine for now also. She just uses her inhaler occasionally. At most she uses it once a day but there is oftentimes she does not use it at all. She has not been in the on steroids in quite some time. She has never been intubated. I think her asthma is overall mild. She would prefer not to do Paxil of it. With her going on for days of symptoms and overall low risk and immunized I think this is a reasonable choice. I have called to have her x-ray done to make sure we do not see any other process or an isolated lobar pneumonia. Lab Data Attestation: I reviewed the patient's lab results. Radiography Diagnostic Testing: Clinical Impression(s) from Imaging Studies Chest X-Ray 04/26/22 14:57 IMPRESSION: Nonacute x-ray examination of the chest. Electronically Signed: Desean Saavedra MD ([place]) at 16:59 EDT Reading Location ID and State: [facility] / [place] , Service support , Discharge Plan Triage Chief Complaint: General Illness ED Provider: Erasmo Pulliam Dx/Rx/DC Orders Clinical Impression: COVID-19, Asthma exacerbation Instructions: Coronavirus Disease 2019 (COVID-19): Caring for Yourself or Others, ED Asthma, Acute (Adult) Prescriptions: New prednisone 20 mg tablet 60 mg PO DAILY 4 Days Qty: 12 0RF albuterol sulfate 2.5 mg /3 mL (0.083 %) solution for nebulization 2.5 mg inhalation Q4H PRN Qty: 25 2RF Rx Instructions: Use q4 hours and PRN for wheezing albuterol sulfate [Ventolin HFA] 90 mcg/actuation HFA aerosol inhaler 2 puff inhalation Q4H PRN PRN (Reason: Wheezing) Qty: 1 0RF No Action topiramate 50 MG tablet 50 mg PO TID aripiprazole [Abilify] 5 mg tablet 5 mg PO DAILY albuterol sulfate 90 mcg/actuation HFA aerosol inhaler 1 - 2 puff inhalation Q4H PRN PRN (Reason: Wheezing) duloxetine 20 mg capsule,delayed release(DR/EC) 30 mg PO BID Label Comments: take 1 capsule by mouth once daily Breo Ellipta 100-25 mcg/dose blister with device 1 inh INHALATION DAILY Label Comments: inhale 1 puff as directed once daily celecoxib [Celebrex] 200 mg Capsule 200 mg PO BID hydroxyzine pamoate 50 mg capsule 50 mg PO DAILY PRN PRN (Reason: Anxiety) Label Comments: take 1 capsule by mouth four times a day if needed for anxiety gabapentin 300 mg capsule 300 mg PO .SEE INSTRUCTIONS Label Comments: take 1 capsule by mouth once daily and 2 capsules at bedtime furosemide 20 mg tablet 20 mg PO .SEE INSTRUCTIONS Label Comments: take 1/2 to 1 tablet by mouth once daily if needed for SWELLING in feet Stand Alone Forms: ED Work / School Excuse Primary Care Provider: Jo-Ann López Referrals: Jo-Ann López MD [Primary Care Provider] - 1 Week if not improving Disposition Disposition: Home, Self Care Discharge Date/Time: 04/26/22 18:03
[2022-04-26] MEDS: Ipratropium/Albuterol Sulfate 3 ML AMPUL.NEB INHALATION (15:05)
[2022-04-26 15:07] VITALS: PULSE 87; RESP 18
[2022-04-26] MEDS: predniSONE 20 MG Tablet 60 MG PO (17:59)
== END 2022-04-26 18:03 | disposition home or self-care (01) ==
PROVIDERS: Emergency Provider Emergency Medicine; PCP Internal Medicine; Visit Provider Emergency Medicine
DX: U07.1 COVID-19 (principal); J45.901 Unspecified asthma with (acute) exacerbation; F17.210 Nicotine dependence, cigarettes, uncomplicated; Z86.711 Personal history of pulmonary embolism
CPT/HCPCS: 71046; 87428; 94640; 99283

== ENCOUNTER 2022-07-08 13:59 | Emergency (ER) | payer MEDICARE, MEDICAID, SELFPAY ==
[2022-07-08 14:01] VITALS: BP 123/85; PULSE 100; RESP 16; TEMP 36.1; O2SAT 97; BMI 39.0
--- NOTE | 2022-07-08 14:31 | CT_ITS ---
STUDY: CT ABDOMEN AND PELVIS WITH CONTRAST REASON FOR EXAM: Female, 61 years old. left sided pain RADIATION DOSAGE (If Supplied By Facility): CTDIvol = ( 17.56 ) mGy, DLP = ( 1074.72 ) mGycm TECHNIQUE: Transaxial images were obtained from the dome of the diaphragm to the symphysis pubis without oral contrast. IV 100mL Isovue-300 was administered. Sagittal and coronal images were reconstructed. Individualized dose optimization techniques were used for this CT. COMPARISON: None. FINDINGS: The visualized lung bases are unremarkable. The visualized portions of the heart are within normal limits. Multiple cysts in the liver largest measures 1 cm. Normal gallbladder and extrahepatic biliary system. Normal spleen. Normal pancreas. Normal bilateral adrenal glands. Normal right kidney. Normal left kidney. Normal visualized stomach. Normal small intestine. Normal colon. The appendix is visualized and appears normal. Normal abdominal aorta. There is left sided IVC. Normal retroperitoneum. Normal urinary bladder. Normal abdominal wall. Normal osseous structures. CT/Abdomen/Pelvis W IV Cont ONLY IMPRESSION: No acute abnormality of the abdomen and pelvis. Electronically Signed: Jeanette Johnson MD at 16:17 EDT ,
--- NOTE | 2022-07-08 14:34 | EDS_ITS ---
HPI History of Present Illness Chief Complaint: Abd Pain Informant: patient Narrative Narrative: Patient presents with left sided abdominal pain. This for started about 3 days ago. It is always sore and aching. Occasionally gets very sharp. She did vomit 1 time when the pain got severe. Currently is down to the aching level. Although she vomited once, she generally has been eating and drinking without altering at any great degree. She occasionally gets some sour taste in her mouth but not now. She denies change in bowel or urinary habits. No black or bloody stools. No darkening change in color or odor of the urine. Only abdominal surgery is a total hysterectomy. Her chart states she has had a cholecystectomy. She had denied this to me. [facility] Medical History Asthma Bipolar disorder COPD (chronic obstructive pulmonary disease) Depression Easy bruising Heartburn History of echocardiogram History of edema History of IBS History of stress test Injury of head and neck Kidney stone Leg cramps Low iron Migraine headache MVP (mitral valve prolapse) Pulmonary embolism Shortness of breath on exertion Skin cancer Smoker Stomach ulcer Wears glasses Home Medications topiramate 50 mg tablet 50 mg PO TID migraines 07/21/15 [History Last Taken 05/06/19] albuterol sulfate 90 mcg/actuation aerosol inhaler 1 - 2 puff inhalation Q4H PRN PRN Wheezing 03/19/20 [History Last Taken Unknown] aripiprazole 5 mg tablet (Abilify) 5 mg PO DAILY 03/19/20 [History Last Taken 03/17/22 08:00] celecoxib 200 mg capsule (Celebrex) 200 mg PO BID inflamation 03/17/22 [History Last Taken Unknown] duloxetine 20 mg capsule,delayed release 30 mg PO BID depression 03/17/22 [Hist ory Last Taken Unknown] fluticasone furoate 100 mcg-vilanterol 25 mcg/dose inhalation powder (Breo Ellipta) 1 inh inhalation DAILY 03/17/22 [History Last Taken Unknown] furosemide 20 mg tablet 20 mg PO .SEE INSTRUCTIONS 03/17/22 [History Last Taken Unknown] gabapentin 300 mg capsule 300 mg PO .SEE INSTRUCTIONS 03/17/22 [History Last Taken Unknown] hydroxyzine pamoate 50 mg capsule 50 mg PO DAILY PRN PRN Anxiety 03/17/22 [History Last Taken Unknown] albuterol sulfate 2.5 mg/3 mL (0.083 %) solution for nebulization 2.5 mg (3 mL) inhalation Q4H PRN #25 vials 04/26/22 [Rx Last Taken Unknown] albuterol sulfate 90 mcg/actuation aerosol inhaler (Ventolin HFA) 2 puff inhalation Q4H PRN PRN Wheezing ##1 04/26/22 [Rx Last Taken Unknown] prednisone 20 mg tablet 60 mg PO DAILY 4 days #12 tabs 04/26/22 [Rx Last Taken Unknown] esomeprazole magnesium 20 mg capsule,delayed release (Nexium) 20 mg PO DAILY #30 caps 07/08/22 [Rx Last Taken Unknown] Allergy/AdvReac Type Severity Reaction Status Date / Time latex Allergy Itching Verified 07/08/22 14:01 Penicillins Allergy Hives Verified 07/08/22 14:01 Surgical History History of cholecystectomy History of foot surgery History of hysterectomy History of surgery on lower extremity History of ureter repair Social History household members: none Smoking Status: Current every day smoker tobacco type: cigarettes alcohol intake: current Alcohol type: beer substance use type: does not use ROS ROS ED Constitutional Constitutional ED: Denies chills or fever(s) ENT ENT ED: Denies rhinorrhea or sore throat Cardiovascular Cardiovascular: Denies chest pain, orthopnea, palpitations, paroxysmal nocturnal dyspnea or racing heartbeat Respiratory/Chest Respiratory/Chest: Reports other Details: She has chronic asthma but is not having symptoms at all at this time. ; Denies cough, dyspnea, dyspnea on exertion, orthopnea, paroxysmal nocturnal dyspnea or sputum Gastrointestinal Gastrointestinal: Reports abdominal pain, nausea and vomiting; Denies constipation, diarrhea or melena Genitourinary Genitourinary ED: Denies dysuria or hematuria Musculoskeletal Musculoskeletal: Denies arthralgias or back pain Integumentary Denies rash Neurologic Neurologic: Denies headache(s), paresthesias or weakness Psychiatric Psychiatric: Denies anxiety Endocrine Endocrinology: Denies polydipsia or polyuria Hematologic/Lymphatic Hematologic/Lymphatic: Denies easy bleeding or easy bruising Allergic/Immunologic Allergic/Immunologic ED: Denies urticaria EXAM Physical Exam Const Vital Signs: 07/08/22 14:01 Temperature 96.9 F L Temperature Source Temporal Pulse Rate 100 Respiratory Rate 16 Blood Pressure 123/85 H Blood Pressure Mean 97 Pulse Ox 97 Oxygen Delivery Method Room Air MDM MDM MDM Narrative Medical decision making narrative: Urinalysis is normal. We are pending completion of labs. CBC is overall normal. Electrolytes are generally unremarkable other than mild dehydration. Liver function test lipase is normal. Urine shows no sign of infection. CT scan showed no acute process. There was some increased stool throughout the colon. Patient's symptoms could be due to constipation. We discussed that she can take MiraLAX at home. But she has a lot of epigastric and left upper quadrant area soreness. I will start her on a PPI. We discussed reasons to return. Lab Data Attestation: I reviewed the patient's lab results. Labs: Laboratory Results - last 24 hr 07/08/22 07/08/22 07/08/22 14:40 14:40 14:51 WBC 6.5 RBC 3.95 L Hgb 12.1 Hct 36.6 L MCV 92.7 MCH 30.6 MCHC 33.1 RDW Std Deviation 45.2 H RDW Coeff of Bruna 13.2 Plt Count 232 MPV 9.9 Immature Gran % (Auto) 0.300 Neut % (Auto) 49.7 Lymph % (Auto) 40.8 Rice % (Auto) 5.5 Eos % (Auto) 3.1 Baso % (Auto) 0.6 Absolute Neuts (auto) 3.3 Absolute Lymphs (auto) 2.67 Nucleated RBC % 0 Sodium 143 Potassium 3.8 Chloride 112 H Carbon Dioxide 27.0 Anion Gap 4 L BUN 16 Creatinine 0.74 Estim Creat Clear Calc 63.14 Est GFR (MDRD) Af Amer 103 Est GFR (MDRD) Non-Af 85 BUN/Creatinine Ratio 21.8 H Glucose 87 Calcium 8.6 Total Bilirubin 0.20 AST 13 L ALT 23 Alkaline Phosphatase 56 Total Protein 6.4 Albumin 3.4 Globulin 3.0 Albumin/Globulin Ratio 1.1 Lipase 57 L Urine Color Yellow Urine Clarity Clear Urine pH 6.5 Ur Specific [place] 1.015 Urine Protein Negative Urine Glucose (UA) Normal Urine Ketones Negative Urine Occult Blood 150 H Urine Nitrite Negative Urine Bilirubin Negative Urine Urobilinogen Normal Ur Leukocyte Esterase 25 H Urine RBC 0 SEEN Urine WBC 0 SEEN Ur Squamous Epith Cells 0 SEEN Urine Bacteria 0 SEEN Urine Mucus 0 SEEN Radiography Diagnostic Testing: Clinical Impression(s) from Imaging Studies Abdomen/Pelvis CT 07/08/22 14:31 IMPRESSION: No acute abnormality of the abdomen and pelvis. Electronically Signed: Jeanette Johnson MD at 16:17 EDT Reading Location ID and State: [facility] / [place] Tel , Service support , Discharge Plan Triage Chief Complaint: Abd Pain ED Provider: Erasmo Pulliam Dx/Rx/DC Orders Clinical Impression: Abdominal pain Instructions: ED Abdominal Pain Unkn Cause Fem Prescriptions: New esomeprazole magnesium [Nexium] 20 mg capsule,delayed release(DR/EC) 20 mg PO DAILY Qty: 30 0RF No Action topiramate 50 MG tablet 50 mg PO TID aripiprazole [Abilify] 5 mg tablet 5 mg PO DAILY albuterol sulfate 90 mcg/actuation HFA aerosol inhaler 1 - 2 puff inhalation Q4H PRN PRN (Reason: Wheezing) duloxetine 20 mg capsule,delayed release(DR/EC) 30 mg PO BID Label Comments: take 1 capsule by mouth once daily Breo Ellipta 100-25 mcg/dose blister with device 1 inh INHALATION DAILY Label Comments: inhale 1 puff as directed once daily celecoxib [Celebrex] 200 mg Capsule 200 mg PO BID hydroxyzine pamoate 50 mg capsule 50 mg PO DAILY PRN PRN (Reason: Anxiety) Label Comments: take 1 capsule by mouth four times a day if needed for anxiety gabapentin 300 mg capsule 300 mg PO .SEE INSTRUCTIONS Label Comments: take 1 capsule by mouth once daily and 2 capsules at bedtime furosemide 20 mg tablet 20 mg PO .SEE INSTRUCTIONS Label Comments: take 1/2 to 1 tablet by mouth once daily if needed for SWELLING in feet prednisone 20 mg tablet 60 mg PO DAILY 4 Days Qty: 12 0RF albuterol sulfate 2.5 mg /3 mL (0.083 %) solution for nebulization 2.5 mg inhalation Q4H PRN Qty: 25 2RF Rx Instructions: Use q4 hours and PRN for wheezing albuterol sulfate [Ventolin HFA] 90 mcg/actuation HFA aerosol inhaler 2 puff inhalation Q4H PRN PRN (Reason: Wheezing) Qty: 1 0RF Primary Care Provider: Jo-Ann López Referrals: Jo-Ann López MD [Primary Care Provider] - 3-5 Days Disposition Disposition: Home, Self Care
[2022-07-08] MEDS: Ondansetron 4 MG/2 ML Vial IV (14:49)
[2022-07-08] MEDS: Ketorolac 15 MG/ML Vial IV (14:49)
[2022-07-08] MEDS: 0.9% Normal Saline 1,000 ML 1000 ML IV (14:50)
[2022-07-08 15:04] LABS: Bacteria 0 SEEN /hpf (None Seen); Mucous, Urine 0 SEEN /hpf (<or=2+); Red Blood Cells-Urine 0 SEEN /hpf (0-5); Squamous Epithelial Cells - UA 0 SEEN /hpf (5-10); White Blood Cells 0 SEEN /hpf (0-5)
[2022-07-08 15:06] LABS: Absolute Lymphocyte Count 2.67 X10^3/uL (0.83-4.51); Absolute Neutrophil Count 3.3 X10^3/uL (2.0-7.7); Basophil# 0.04 X10^3/uL; Basophil% 0.6 % (0-1); Eosinophils% 3.1 % (0-5); Hematocrit 36.6 % (37-47); Hemoglobin 12.1 g/dL (12.0-15.0); Lymphocyte # 2.67 X10^3/ul (0.83-4.51); Lymphocyte % 40.8 % (19-41); Mean Corp Hgb Conc 33.1 g/dL (32-36); Mean Corpuscular Hgb 30.6 pg (27.0-32.0); Mean Corpuscular Volume 92.7 fL (81-99); Mean Platelet Vol. 9.9 fl (6.2-12.0); Monocyte# 0.36 X10^3/uL; Monocyte% 5.5 % (0-10); NRBC Flagged by Analyzer 0 % (0-5); Neutrophil # 3.25 X10^3/uL (2.7-7.7); Neutrophil % 49.7 % (47-70); Platelet Count 232 K/mm3 (150-450); RBC Distribution Width CV 13.2 % (11.6-14.6); RBC Distribution Width SD 45.2 fl (35.1-43.9); Red Blood Count 3.95 M/mm3 (4.2-5.4); White Blood Count 6.5 K/mm3 (4.4-11.0)
[2022-07-08 15:11] LABS: Color, Urine Yellow (Yellow); Glucose, Dipstick Normal (Normal); Ketone-Dipstick Negative (Negative); Leukocyte Esterase-Dipstick 25 /ul (Negative); Nitrite-Dipstick Negative (Negative); Occult Blood-Urine 150 /ul (Negative); Protein-Dipstick Negative (Negative); Specific Gravity, Urine 1.015 (1.002-1.030); Urine Bilirubin Dipstick Negative (Negative); Urine Clarity Clear (Clear); Urine Urobilinogen Normal (Normal); Urine pH 6.5 (5.0 - 8.0)
[2022-07-08 15:31] LABS: ALB/GLOB Ratio 1.1 RATIO (0.9-2.4); AST(SGOT) 13 U/L (15-37); Alanine Aminotransfer ALT/SGPT 23 U/L (13-56); Albumin, Serum 3.4 g/dL (3.2-5.0); Alkaline Phosphatase 56 U/L (45-117); Anion Gap 4 (5-15); BUN 16 mg/dL (7-18); BUN/Creat Ratio 21.8 RATIO (10-20); Calcium,Total 8.6 mg/dL (8.5-10.1); Chloride 112 mmol/L (98-107); Creatinine, Serum 0.74 mg/dL (0.55-1.02); EST Glomerular Filtration Rate 85 mL/min (>60); Est Glom Filt Rate - Afr Amer 103 mL/min (>60); Estimated Creatinine Clearance 63.14 ml/min; Glucose 87 mg/dL (74-106); Lipase 57 U/L (73-393); Potassium 3.8 mmol/L (3.5-5.1); Protein, Total 6.4 g/dL (6.4-8.2); Sodium Level 143 mmol/L (136-145)
[2022-07-08 17:10] VITALS: PULSE 79; RESP 15; O2SAT 97
== END 2022-07-08 17:55 | disposition home or self-care (01) ==
PROVIDERS: Emergency Provider Emergency Medicine; PCP Internal Medicine; Visit Provider Emergency Medicine
DX: R10.9 Unspecified abdominal pain (principal); J44.9 Chronic obstructive pulmonary disease, unspecified; R11.10 Vomiting, unspecified; F17.210 Nicotine dependence, cigarettes, uncomplicated; E86.0 Dehydration; Z79.52 Long term (current) use of systemic steroids
CPT/HCPCS: 74177; 80053; 81001; 83690; 85025; 96361; 96374; 96375; 99283; J7030; Q9967; J2405; J3490

== ENCOUNTER 2022-09-13 06:44 | Emergency (ER) | payer MEDICARE, MEDICAID, SELFPAY ==
[2022-09-13 06:45] VITALS: BP 127/75; PULSE 89; RESP 17; TEMP 37.1; O2SAT 99; BMI 39.6
--- NOTE | 2022-09-13 07:02 | EX.ED.DYSGE1 ---
HPI History of Present Illness Chief Complaint: Cold Sx Narrative Narrative: Patient is a 62-year-old female with past medical history of asthma. She states her asthma is typically well controlled at home with nebulizer machine and rescue inhaler. She reports for the past 4 days she has been having increasing nasal congestion sore throat cough and headache. She states she has been trying Tessalon Perles with no improvement to her cough. She states she is taken her home nebulizer also with minimal symptom improvement. Secondary to her persistent and worsening symptoms she is concerned that she has developed a an infection such as pneumonia and therefore comes in for evaluation [facility] Medical History Asthma Bipolar disorder COPD (chronic obstructive pulmonary disease) Depression Easy bruising Heartburn History of echocardiogram History of edema History of IBS History of stress test Injury of head and neck Kidney stone Leg cramps Low iron Migraine headache MVP (mitral valve prolapse) Pulmonary embolism Shortness of breath on exertion Skin cancer Smoker Stomach ulcer Wears glasses Home Medications topiramate 50 mg tablet 50 mg PO TID migraines 07/21/15 [History Last Taken 05/06/19] albuterol sulfate 90 mcg/actuation aerosol inhaler 1 - 2 puff inhalation Q4H PRN PRN Wheezing 03/19/20 [History Last Taken Unknown] aripiprazole 5 mg tablet (Abilify) 5 mg PO DAILY 03/19/20 [History Last Taken 03/17/22 08:00] celecoxib 200 mg capsule (Celebrex) 200 mg PO BID inflamation 03/17/22 [History Last Taken Unknown] duloxetine 20 mg capsule,delayed release 30 mg PO BID depression 03/17/22 [History Last Taken Unknown] fluticasone furoate 100 mcg-vilanterol 25 mcg/dose inhalation powder (Breo Ellipta) 1 inh inhalation DAILY 03/17/22 [History Last Taken Unknown] furosemide 20 mg tablet 20 mg PO .SEE INSTRUCTIONS 03/17/22 [History Last Taken Unknown] gabapentin 300 mg capsule 300 mg PO .SEE INSTRUCTIONS 03/17/22 [History Last Taken Unknown] hydroxyzine pamoate 50 mg capsule 50 mg PO DAILY PRN PRN Anxiety 03/17/22 [History Last Taken Unknown] albuterol sulfate 2.5 mg/3 mL (0.083 %) solution for nebulization 2.5 mg (3 mL) inhalation Q4H PRN #25 vials 04/26/22 [Rx Last Taken Unknown] albuterol sulfate 90 mcg/actuation aerosol inhaler (Ventolin HFA) 2 puff inhalation Q4H PRN PRN Wheezing ##1 04/26/22 [Rx Last Taken Unknown] prednisone 20 mg tablet 60 mg PO DAILY 4 days #12 tabs 04/26/22 [Rx Last Taken Unknown] esomeprazole magnesium 20 mg capsule,delayed release (Nexium) 20 mg PO DAILY #30 caps 07/08/22 [Rx Last Taken Unknown] azelastine 137 mcg (0.1 %) nasal spray aerosol 2 spray intranasal BID #30 mL 09/13/22 [Rx Last Taken Unknown] prednisone 20 mg tablet 40 mg PO DAILY 5 days #10 tabs 09/13/22 [Rx Last Taken Unknown] promethazine 6.25 mg-codeine 10 mg/5 mL syrup 5 ml PO 4X/DAY PRN PRN cough 7 days #140 mL 09/13/22 [Rx Last Taken Unknown] Allergy/AdvReac Type Severity Reaction Status Date / Time latex Allergy Itching Verified 09/13/22 06:48 Penicillins Allergy Hives Verified 09/13/22 06:48 Surgical History History of cholecystectomy History of foot surgery History of hysterectomy History of surgery on lower extremity History of ureter repair Social History household members: none Smoking Status: Former smoker alcohol intake: current Alcohol type: beer substance use type: does not use ROS ROS ED Constitutional Constitutional ED: Denies chills or fever(s) ENT ENT ED: Reports ear pain, rhinorrhea and sore throat Cardiovascular Cardiovascular: Denies chest pain Respiratory/Chest Respiratory/Chest: Reports cough and dyspnea Gastrointestinal Gastrointestinal: Reports nausea; Denies abdominal pain, diarrhea or vomiting Genitourinary Genitourinary ED: Denies dysuria Musculoskeletal Musculoskeletal: Reports myalgias Integumentary Denies rash Neurologic Neurologic: Reports headache(s) Hematologic/Lymphatic Hematologic/Lymphatic: Denies easy bleeding or easy bruising EXAM Physical Exam Const Vital Signs: 09/13/22 06:45 Temperature 98.7 F Temperature Source Temporal Pulse Rate 89 Respiratory Rate 17 Blood Pressure 127/75 H Blood Pressure Mean 92 Pulse Ox 99 Oxygen Delivery Method Room Air Positive well nourished and well developed General Appearance ED: well developed HEENT Reports moist mucous membranes HEENT Narrative: Bilateral TMs are retracted but show no secondary changes to suggest infection. Nasal mucosa is hyperemic and boggy with enlarged inferior nasal turbinate. There is cobblestoning the posterior pharynx consistent with sinus drainage but no airway edema or compromise. Eyes PERRL and EOMs intact bilaterally Neck supple and no JVD Neck Narrative: Positive anterior cervical lymphadenopathy noted Resp normal respiratory effort Resp Narrative: Breath sounds are diminished throughout with diffuse expiratory wheeze slightly greater in the right upper and lower lobe. Otherwise no nasal flaring retractions tachypnea or accessory muscle use. Cardio regular rate and regular rhythm Extremity normal to inspection Extremity Narrative: No asymmetric edema no pitting edema negative Homans' sign bilateral Neuro oriented x3 and CN's II-XII intact bilaterally Sensorium / Orientation: alert Psych mental status grossly normal Skin no rashes or lesions noted MDM MDM MDM Narrative Medical decision making narrative: Patient presented to the ER no acute respiratory distress. Her constellation of symptoms is most consistent with a viral infection. Patient states her is immunocompromised and therefore elected to perform a influenza and COVID swab as well as chest x-ray. Viral swabs were negative and chest x-ray showed inflammatory changes consistent with her exam but no acute infiltrate pneumothorax or pleural effusion. On reevaluation she is resting comfortably and remains in no acute respiratory distress with a pulse ox in the mid to high 90s on room air. Therefore she will be prescribed symptomatic medications for her viral URI but as she is in no acute respiratory distress and not requiring submental oxygen is otherwise safe for discharge. Radiography Diagnostic Testin view chest x-ray as interpreted by the emergency medicine physician reveals inflammatory changes consistent with viral infection but no acute infiltrate pneumothorax or pleural effusion Discharge Plan Triage Chief Complaint: Cold Sx ED Provider: Michael Nguyen Dx/Rx/DC Orders Clinical Impression: Viral upper respiratory tract infection with cough, Wheezes Instructions: ED URI, Viral W/ Wheezing (Adult) Prescriptions: New prednisone 20 mg tablet 40 mg PO DAILY 5 Days Qty: 10 0RF azelastine 137 mcg (0.1 %) aerosol,spray 2 spray intranasal BID Qty: 30 0RF Rx Instructions: administer into each nostril promethazine-codeine 6.25-10 mg/5 mL syrup 5 ml PO 4X/DAY PRN PRN (Reason: cough) 7 Days Qty: 140 0RF No Action topiramate 50 MG tablet 50 mg PO TID aripiprazole [Abilify] 5 mg tablet 5 mg PO DAILY albuterol sulfate 90 mcg/actuation HFA aerosol inhaler 1 - 2 puff inhalation Q4H PRN PRN (Reason: Wheezing) duloxetine 20 mg capsule,delayed release(DR/EC) 30 mg PO BID Label Comments: take 1 capsule by mouth once daily Breo Ellipta 100-25 mcg/dose blister with device 1 inh INHALATION DAILY Label Comments: inhale 1 puff as directed once daily celecoxib [Celebrex] 200 mg Capsule 200 mg PO BID hydroxyzine pamoate 50 mg capsule 50 mg PO DAILY PRN PRN (Reason: Anxiety) Label Comments: take 1 capsule by mouth four times a day if needed for anxiety gabapentin 300 mg capsule 300 mg PO .SEE INSTRUCTIONS Label Comments: take 1 capsule by mouth once daily and 2 capsules at bedtime furosemide 20 mg tablet 20 mg PO .SEE INSTRUCTIONS Label Comments: take 1/2 to 1 tablet by mouth once daily if needed for SWELLING in feet prednisone 20 mg tablet 60 mg PO DAILY 4 Days Qty: 12 0RF albuterol sulfate 2.5 mg /3 mL (0.083 %) solution for nebulization 2.5 mg inhalation Q4H PRN Qty: 25 2RF Rx Instructions: Use q4 hours and PRN for wheezing albuterol sulfate [Ventolin HFA] 90 mcg/actuation HFA aerosol inhaler 2 puff inhalation Q4H PRN PRN (Reason: Wheezing) Qty: 1 0RF esomeprazole magnesium [Nexium] 20 mg capsule,delayed release(DR/EC) 20 mg PO DAILY Qty: 30 0RF Primary Care Provider: Jo-Ann López Referrals: Jo-Ann López MD [Primary Care Provider] - Activity Restrictions/Additional Instructions: Please take your medications as directed to help control your symptoms. On average your viral URI will last 18 to 21 days. If you have any further concerns or worsening symptoms please return to the ER for repeat evaluation. Disposition Disposition: Home, Self Care
[2022-09-13 07:09] VITALS: PULSE 85; RESP 18
[2022-09-13] MEDS: predniSONE 20 MG Tablet 40 MG PO (07:11)
[2022-09-13] MEDS: Ipratropium/Albuterol Sulfate 3 ML AMPUL.NEB INHALATION (07:12)
--- NOTE | 2022-09-13 07:15 | RAD_ITS ---
EXAM: XR CHEST, 1 VIEW CLINICAL INDICATION: cough TECHNIQUE: Frontal view of the chest. This report was created using [employer] report generation technology. COMPARISON: April 26, 2022. FINDINGS: LUNGS AND PLEURAL SPACES: Unremarkable. No consolidation or edema. No pneumothorax. No effusion. HEART: Unremarkable. Cardiac silhouette not enlarged. MEDIASTINUM: Central airways and mediastinal contour are unremarkable. BONES/JOINTS: Unremarkable. SOFT TISSUES: Unremarkable. RAD/Chest 1 View (Portable) IMPRESSION: No radiographic evidence of acute cardiopulmonary disease. Electronically Signed: Daisy Banda MD at 7:49 EST ,
[2022-09-13 08:04] VITALS: RESP 16
== END 2022-09-13 08:18 | disposition home or self-care (01) ==
PROVIDERS: Emergency Provider Emergency Medicine; PCP Internal Medicine; Visit Provider Emergency Medicine
DX: J06.9 Acute upper respiratory infection, unspecified (principal); R06.2 Wheezing; R51.9 Headache, unspecified; Z20.822 Contact with and (suspected) exposure to COVID-19; R11.0 Nausea; Z87.891 Personal history of nicotine dependence
CPT/HCPCS: 71045; 87428; 94640; 99283

== ENCOUNTER 2022-10-13 13:53 | Emergency (ER) | payer MEDICARE, MEDICAID, SELFPAY ==
[2022-10-13 13:55] VITALS: BP 132/64; PULSE 106; RESP 18; TEMP 36.2; O2SAT 97; BMI 40.2
--- NOTE | 2022-10-13 16:20 | RAD_ITS ---
INDICATION: COUGH/SOB EXAMINATION/TECHNIQUE: X-RAY - XR Chest 2 Views COMPARISON: 09/13/2022 FINDINGS: LINES/DEVICES: None. LUNGS: No consolidation, edema or effusion. No pneumothorax. MEDIASTINUM AND CARDIOVASCULAR STRUCTURES: Cardiac silhouette not enlarged. Central airways and mediastinal contour are unremarkable. BONES AND SOFT TISSUES: Unremarkable. RAD/Chest PA and Lateral IMPRESSION: No radiographic evidence of acute cardiopulmonary disease. Electronically Signed: Armando Perez MD at 16:39 EST ,
--- NOTE | 2022-10-13 17:02 | EX.ED.VIS.UR ---
HPI HPI - URI History of Present Illness Chief Complaint: Shortness of Breath Detail of Chief Complaint: Nonproductive cough. Body aches. Sore throat. Symptoms began 2 days ago. Onset/Context/Timing Onset: Days Context: Gradual Onset Timing: Continuous Current Severity: Mild Maximum Severity: Mild Worsened by: Not Worsened By Swallowing, Eating Solids or Drinking Liquids Associated Symptoms Associated Symptoms: Positive for Nasal Congestion, Headache and Nonproductive cough; Negative for Myalgias, Nausea, Vomiting, Diarrhea, Shortness of Breath, Hemoptysis or Productive Cough Narrative Narrative: 62-year-old female history of COPD. Says she has had a nonproductive cough sore throat for about 2 days. Body aches. No fever. Positive chills. No nausea, vomiting or diarrhea. Also associated headache. Prior similar symptoms: Yes Recent Illness/Hospitalization: No ROS ROS ED ROS Narrative Nonproductive cough. Chills. Headache. Body aches. Review of Systems ROS Unobtainable: Denies due to encephalopathy Constitutional Constitutional ED: Reports chills; Denies fever(s) Eyes Eyes: Denies blurry vision ENT ENT ED: Reports rhinorrhea and sore throat; Denies ear pain Cardiovascular Cardiovascular: Denies chest pain Respiratory/Chest Respiratory/Chest: Reports cough Gastrointestinal Gastrointestinal: Denies abdominal pain Genitourinary Genitourinary ED: Denies dysuria or hematuria Musculoskeletal Musculoskeletal: Denies arthralgias Integumentary Denies abscess Neurologic Neurologic: Reports headache(s) Psychiatric Psychiatric: Denies anxiety Endocrine Endocrinology: Denies cold intolerance Hematologic/Lymphatic Hematologic/Lymphatic: Denies easy bleeding Allergic/Immunologic Allergic/Immunologic ED: Denies mouth swelling or tongue swelling [facility] Medical History Asthma Bipolar disorder COPD (chronic obstructive pulmonary disease) Depression Easy bruising Heartburn History of echocardiogram History of edema History of IBS History of stress test Injury of head and neck Kidney stone Leg cramps Low iron Migraine headache MVP (mitral valve prolapse) Pulmonary embolism Shortness of breath on exertion Skin cancer Smoker Stomach ulcer Wears glasses Home Medications topiramate 50 mg tablet 50 mg PO TID migraines 07/21/15 [History Last Taken 05/06/19] albuterol sulfate 90 mcg/actuation aerosol inhaler 1 - 2 puff inhalation Q4H PRN PRN Wheezing 03/19/20 [History Last Taken Unknown] aripiprazole 5 mg tablet (Abilify) 5 mg PO DAILY 03/19/20 [History Last Taken 03/17/22 08:00] celecoxib 200 mg capsule (Celebrex) 200 mg PO BID inflamation 03/17/22 [History Last Taken Unknown] duloxetine 20 mg capsule,delayed release 30 mg PO BID depression 03/17/22 [History Last Taken Unknown] fluticasone furoate 100 mcg-vilanterol 25 mcg/dose inhalation powder (Breo Ellipta) 1 inh inhalation DAILY 03/17/22 [History Last Taken Unknown] furosemide 20 mg tablet 20 mg PO .SEE INSTRUCTIONS 03/17/22 [History Last Taken Unknown] gabapentin 300 mg capsule 300 mg PO .SEE INSTRUCTIONS 03/17/22 [History Last Taken Unknown] hydroxyzine pamoate 50 mg capsule 50 mg PO DAILY PRN PRN Anxiety 03/17/22 [History Last Taken Unknown] albuterol sulfate 2.5 mg/3 mL (0.083 %) solution for nebulization 2.5 mg (3 mL) inhalation Q4H PRN #25 vials 04/26/22 [Rx Last Taken Unknown] albuterol sulfate 90 mcg/actuation aerosol inhaler (Ventolin HFA) 2 puff inhalation Q4H PRN PRN Wheezing ##1 04/26/22 [Rx Last Taken Unknown] prednisone 20 mg tablet 60 mg PO DAILY 4 days #12 tabs 04/26/22 [Rx Last Taken Unknown] esomeprazole magnesium 20 mg capsule,delayed release (Nexium) 20 mg PO DAILY #30 caps 07/08/22 [Rx Last Taken Unknown] azelastine 137 mcg (0.1 %) nasal spray aerosol 2 spray intranasal BID #30 mL 09/13/22 [Rx Last Taken Unknown] prednisone 20 mg tablet 40 mg PO DAILY 5 days #10 tabs 09/13/22 [Rx Last Taken Unknown] promethazine 6.25 mg-codeine 10 mg/5 mL syrup 5 ml PO 4X/DAY PRN PRN cough 7 days #140 mL 09/13/22 [Rx Last Taken Unknown] prednisone 20 mg tablet 40 mg PO DAILY 5 days #10 tabs 10/13/22 [Rx Last Taken Unknown] Allergy/AdvReac Type Severity Reaction Status Date / Time latex Allergy Itching Verified 10/13/22 13:54 Penicillins Allergy Hives Verified 10/13/22 13:54 Surgical History History of cholecystectomy History of foot surgery History of hysterectomy History of surgery on lower extremity History of ureter repair Social History household members: none Smoking Status: Former smoker alcohol intake: current Alcohol type: beer substance use type: does not use EXAM Physical Exam Narrative Exam Narrative: Said to feel no acute distress. Vital signs stable afebrile. Pulse ox 97% room air no signs hypoxia. Patient looks like someone with a URI. H EENT exam posterior pharynx moist and pink. Pupils round reactive light. TMs unremarkable. Neck nontender no lymphadenopathy. Lungs clear to auscultation bilaterally. No rales, rhonchi or wheezing. Equal symmetrical. Heart regular rhythm no murmur. Abdomen soft nontender. Moving all 4 extremities. Calves are nontender without edema or cords. Const Vital Signs: 10/13/22 13:55 10/13/22 16:41 10/13/22 17:15 Temperature 97.2 F L Temperature Source Temporal Pulse Rate 106 H 92 Respiratory Rate 18 19 H Respiratory Effort Short of Breath Labored Respiratory Depth Shallow Respiratory Pattern Tachypnea Blood Pressure 132/64 H Blood Pressure Mean 86 Pulse Ox 97 94 Oxygen Delivery Method Room Air Room Air Positive well nourished, well developed and obese; Negative for cachectic or contractures General Appearance ED: well developed and NAD; Negative for cachectic, contractures, cyanotic, diaphoretic or pallor Nutritional Appearance: obese; Negative for cachectic HEENT Reports moist mucous membranes; Denies dry mucous membranes normocephalic and atraumatic Face and Sinus: Negative for sinus tenderness Mouth ED: No dry mucous membranes Mouth: No dry mucous membranes Teeth and Gingiva: Negative for caries Throat: posterior oropharynx normal; Negative for tonsils abnormal or posterior oropharynx abnormal Eyes PERRL and EOMs intact bilaterally General Eye ED: Negative for pale conjunctiva or scleral icterus Neck no lymphadenopathy, supple, no meningeal signs and no JVD General: Negative for anterior neck swelling or lymphadenopathy Resp normal respiratory effort and clear to auscultation bilaterally Effort and Inspection: Negative for retractions Auscultation: Negative for rales, rhonchi or wheezes Cardio S1 normal heart sound, S2 normal heart sound and no murmurs Rate: regular rate; Negative for bradycardia or tachycardic Rhythm: regular rhythm GI non-tender, non-distended and no masses Inspection: Negative for abdominal distention Auscultation: normoactive bowel sounds Palpation: soft; Negative for tender or guarding Percussion: Negative for other Back/Spine no CVA tenderness and normal ROM General Back: Negative for CVA tenderness Cervical Spine: Negative for cervical spine tenderness Thoracic Spine / Upper Back: Negative for thoracic spinal tenderness Lumbar Spine / Lower Back: Negative for lumbar spinal tenderness Sacrum: Negative for tenderness Extremity normal to inspection and full ROM General Extremety ED: Negative for cyanosis or tenderness General Extremity: Negative for cyanosis Neuro oriented x3 and CN's II-XII intact bilaterally Sensorium / Orientation: alert, oriented to person, oriented to place and oriented to time; Negative for orientation impaired, lethargic or stuporous Motor Exam: strength 5/5 throughout; Negative for general weakness Psych mental status grossly normal Appearance: Negative for other Attitude: No agitated Mood & Affect: Negative for depressed Skin General Skin Exam: Negative for jaundice or pallor Lesions: no lesions Rashes: no rashes Trauma: Negative for abrasion or laceration MDM MDM MDM Narrative Medical decision making narrative: 6-year-old female URI symptoms. Chest x-ray shows no acute process. This is most likely a viral syndrome. She is being tested for RSV and COVID. I would not change her course. She requested prednisone which I will give her 5-day course of prednisone 40 mg a day follow-up with her primary care physician. Lab Data Attestation: I reviewed the patient's lab results. Lab results narrative: COVID and influenza negative. Radiography Diagnostic Testing: Clinical Impression(s) from Imaging Studies Chest X-Ray 10/13/22 16:20 IMPRESSION: No radiographic evidence of acute cardiopulmonary disease. Electronically Signed: Armando Perez MD at 16:39 EST , Chest x-ray, portable, single view, interpreted by myself and radiologist shows no acute abnormality. Normal cardiac silhouette lung murrell. Discharge Plan Triage Chief Complaint: Shortness of Breath ED Provider: Stefan Correa Dx/Rx/DC Orders Clinical Impression: Viral URI Instructions: ED URI, Viral, No Abx (Adult) Prescriptions: New prednisone 20 mg tablet 40 mg PO DAILY 5 Days Qty: 10 0RF No Action topiramate 50 MG tablet 50 mg PO TID aripiprazole [Abilify] 5 mg tablet 5 mg PO DAILY albuterol sulfate 90 mcg/actuation HFA aerosol inhaler 1 - 2 puff inhalation Q4H PRN PRN (Reason: Wheezing) duloxetine 20 mg capsule,delayed release(DR/EC) 30 mg PO BID Label Comments: take 1 capsule by mouth once daily Breo Ellipta 100-25 mcg/dose blister with device 1 inh INHALATION DAILY Label Comments: inhale 1 puff as directed once daily celecoxib [Celebrex] 200 mg Capsule 200 mg PO BID hydroxyzine pamoate 50 mg capsule 50 mg PO DAILY PRN PRN (Reason: Anxiety) Label Comments: take 1 capsule by mouth four times a day if needed for anxiety gabapentin 300 mg capsule 300 mg PO .SEE INSTRUCTIONS Label Comments: take 1 capsule by mouth once daily and 2 capsules at bedtime furosemide 20 mg tablet 20 mg PO .SEE INSTRUCTIONS Label Comments: take 1/2 to 1 tablet by mouth once daily if needed for SWELLING in feet prednisone 20 mg tablet 60 mg PO DAILY 4 Days Qty: 12 0RF albuterol sulfate 2.5 mg /3 mL (0.083 %) solution for nebulization 2.5 mg inhalation Q4H PRN Qty: 25 2RF Rx Instructions: Use q4 hours and PRN for wheezing albuterol sulfate [Ventolin HFA] 90 mcg/actuation HFA aerosol inhaler 2 puff inhalation Q4H PRN PRN (Reason: Wheezing) Qty: 1 0RF esomeprazole magnesium [Nexium] 20 mg capsule,delayed release(DR/EC) 20 mg PO DAILY Qty: 30 0RF prednisone 20 mg tablet 40 mg PO DAILY 5 Days Qty: 10 0RF azelastine 137 mcg (0.1 %) aerosol,spray 2 spray intranasal BID Qty: 30 0RF Rx Instructions: administer into each nostril promethazine-codeine 6.25-10 mg/5 mL syrup 5 ml PO 4X/DAY PRN PRN (Reason: cough) 7 Days Qty: 140 0RF Primary Care Provider: Jo-Ann López Referrals: Jo-Ann López MD [Primary Care Provider] - 1 Week if not improving Activity Restrictions/Additional Instructions: Plenty of fluids and rest. Follow-up with your doctor if not improving. Prednisone daily if you start wheezing.. Disposition Disposition: Home, Self Care Discharge Date/Time: 10/13/22 17:20
[2022-10-13 17:15] VITALS: PULSE 92; RESP 19; O2SAT 94
== END 2022-10-13 17:20 | disposition home or self-care (01) ==
PROVIDERS: Emergency Provider Emergency Medicine; PCP Internal Medicine; Visit Provider Emergency Medicine
DX: J06.9 Acute upper respiratory infection, unspecified (principal); E66.9 Obesity, unspecified; Z87.891 Personal history of nicotine dependence; Z86.711 Personal history of pulmonary embolism
CPT/HCPCS: 71046; 87428; 99282

== ENCOUNTER → 2023-01-08 | Outpatient (CLI) | payer MEDICARE, MEDICAID, SELFPAY | END | disposition home or self-care (01) | LOC: SL 20:04 | PROVIDERS: PCP Internal Medicine; Referring Provider Otolaryngology; Visit Provider Otolaryngology | DX: G47.33 Obstructive sleep apnea (adult) (pediatric) (principal) | CPT/HCPCS: 95810 ==

== ENCOUNTER → 2023-01-28 | Outpatient (CLI) | payer MEDICARE, MEDICAID, SELFPAY ==
[2023-01-28] MEDS: Zolpidem Tartrate 5 MG Tablet PO (21:28)
== END | disposition home or self-care (01) ==
LOC: SL 20:11
PROVIDERS: PCP Internal Medicine; Referring Provider Nurse Practitioner Acute Care; Visit Provider Nurse Practitioner Acute Care
DX: G47.10 Hypersomnia, unspecified (principal)
CPT/HCPCS: 95810; 95811

== ENCOUNTER 2023-02-05 09:21 | Emergency (ER) | payer MEDICARE, MEDICAID, SELFPAY ==
[2023-02-05 09:22] VITALS: BP 139/87; PULSE 84; RESP 18; TEMP 35.8; O2SAT 100; BMI 42.0
--- NOTE | 2023-02-05 09:36 | RAD_ITS ---
STUDY: X-RAY CHEST REASON FOR EXAM: Female, 62 years old. Chest pain TECHNIQUE: Single AP portable view of the chest. COMPARISON: Comparison is made with prior study dated October 13, 2022. FINDINGS: EKG electrodes are seen. The lungs are clear and expanded. There is no demonstrated pleural abnormality. Normal size heart. Normal mediastinum and marissa. Normal visualized pulmonary arteries. Normal visualized aortic arch and descending thoracic aorta. Normal visualized thoracic spine. Normal visualized ribs, clavicles, and shoulders. There is no demonstrated abnormality of the visualized soft tissue structures of the upper abdomen. RAD/Chest 1 View (Portable) IMPRESSION: Normal x-ray examination of the chest. Electronically Signed: Aleksandr Schmidt MD at 10:09 EDT ,
--- NOTE | 2023-02-05 09:37 | ED.VIS.CHEST ---
HPI History of Present Illness Chief Complaint: Chest Pain Narrative Narrative: 62-year-old female presenting with a couple of complaints. Her initial complaint to me was left arm pain. She points to an area between her left elbow and her left bicep where she is tender. Its been tender like this for about 8 days. 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 She denies any direct trauma that she knows of. It might be overuse. She states he is takes Tylenol at home but cannot take ibuprofen because it upsets her stomach. She has not seen her PCP. Patient also reports yesterday she had burning chest pain in the left side of her chest. She reports that it was there most of the day yesterday but it was on and off. Patient states he thought it was indigestion, but all she had was a peanut butter sandwich and she did not think that would upset her stomach. She states has not been lightheaded or dizzy. No nausea. She states he is always short of breath because she has asthma. She states her shortness of breath is been worse for last couple of days. No fevers, chills, cough. Patient does not feel she is got a cold. [facility] Medical History Asthma Bipolar disorder COPD (chronic obstructive pulmonary disease) Depression Easy bruising Heartburn History of echocardiogram History of edema History of IBS History of stress test Injury of head and neck Kidney stone Leg cramps Low iron Migraine headache MVP (mitral valve prolapse) Pulmonary embolism Shortness of breath on exertion Skin cancer Smoker Stomach ulcer Wears glasses Home Medications topiramate 50 mg tablet 50 mg PO TID migraines 07/21/15 [History Last Taken 05/06/19] aripiprazole 5 mg tablet (Abilify) 5 mg PO DAILY 03/19/20 [History Last Taken 03/17/22 08:00] fluticasone furoate 100 mcg-vilanterol 25 mcg/dose inhalation powder (Breo Ellipta) 1 inh inhalation DAILY 03/17/22 [History Last Taken Unknown] furosemide 20 mg tablet 20 mg PO .SEE INSTRUCTIONS 03/17/22 [History Last Taken Unknown] hydroxyzine pamoate 50 mg capsule 50 mg PO DAILY PRN PRN Anxiety 03/17/22 [History Last Taken Unknown] albuterol sulfate 2.5 mg/3 mL (0.083 %) solution for nebulization 2.5 mg (3 mL) inhalation Q4H PRN #25 vials 04/26/22 [Rx Last Taken Unknown] albuterol sulfate 90 mcg/actuation aerosol inhaler (Ventolin HFA) 2 puff inhalation Q4H PRN PRN Wheezing ##1 04/26/22 [Rx Last Taken Unknown] esomeprazole magnesium 20 mg capsule,delayed release (Nexium) 20 mg PO DAILY #30 caps 07/08/22 [Rx Last Taken Unknown] azelastine 137 mcg (0.1 %) nasal spray aerosol 2 spray intranasal BID #30 mL 09/13/22 [Rx Last Taken Unknown] promethazine 6.25 mg-codeine 10 mg/5 mL syrup 5 ml PO 4X/DAY PRN PRN cough 7 days #140 mL 09/13/22 [Rx Last Taken Unknown] celecoxib 200 mg capsule (Celebrex) 200 mg PO BID inflamation 01/21/23 [History Last Taken Unknown] citalopram 10 mg tablet (Celexa) 30 mg PO QHS 01/21/23 [History Last Taken Unknown] duloxetine 20 mg capsule,delayed release 60 mg PO QAM depression 01/21/23 [History Last Taken Unknown] gabapentin 300 mg capsule 300 mg PO TID 01/21/23 [History Last Taken Unknown] Allergy/AdvReac Type Severity Reaction Status Date / Time latex Allergy Itching Verified 02/05/23 09:24 Penicillins Allergy Hives Verified 02/05/23 09:24 Surgical History History of cholecystectomy History of foot surgery History of hysterectomy History of surgery on lower extremity History of ureter repair Social History household members: none Smoking Status: Former smoker Tobacco: How many years used: 50 alcohol intake: former details: 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 substance use type: does not use ROS ROS ED Review of Systems ROS Unobtainable: Denies due to encephalopathy Constitutional Constitutional ED: Denies chills or fever(s) Eyes Eyes: Denies none or blurry vision ENT ENT ED: Denies rhinorrhea or sore throat Cardiovascular Cardiovascular: Reports as per HPI Respiratory/Chest Respiratory/Chest: Reports dyspnea; Denies cough Gastrointestinal Gastrointestinal: Reports other Details: Dyspepsia ; Denies abdominal pain Genitourinary Genitourinary ED: Denies dysuria or hematuria Musculoskeletal Musculoskeletal: Denies arthralgias Integumentary Denies abscess Neurologic Neurologic: Denies headache(s) or paresthesias Psychiatric Psychiatric: Denies anxiety or depression EXAM Physical Exam Const Vital Signs: 02/05/23 09:22 02/05/23 09:49 02/05/23 09:51 Temperature 96.5 F L Temperature Source Temporal Pulse Rate 84 75 Respiratory Rate 18 18 Respiratory Effort Normal Non-Labored Blood Pressure 139/87 H 115/56 L Blood Pressure Mean 104 75 Pulse Ox 100 96 Oxygen Delivery Method Room Air Room Air 02/05/23 09:51 Temperature Temperature Source Pulse Rate Respiratory Rate Respiratory Effort Blood Pressure Blood Pressure Mean Pulse Ox 97 Oxygen Delivery Method Room Air Positive well nourished General Appearance ED: NAD HEENT Reports TM's clear and moist mucous membranes normocephalic Tympanic Membrane ED: Yes TM's clear Eyes PERRL and EOMs intact bilaterally Resp normal respiratory effort and clear to auscultation bilaterally Auscultation: Negative for rales, rhonchi or wheezes Cardio regular rate and regular rhythm Extremity normal to inspection Neuro oriented x3 Sensorium / Orientation: awake and alert Skin no rashes or lesions noted and no wounds MDM MDM MDM Narrative Medical decision making narrative: Patient presenting with initial complaint of left arm pain. When examining her left arm is area where the biceps is on the left arm. Do not see any sign of a biceps tear. Patient able to flex and extend the elbow without difficulty. Pronation supination are normal. I suspect she has a arm strain of some sort. Patient also complaining of burn pain which is present most of the day yesterday. Differential includes but is not limited to ACS, pneumonia, muscle strain, costochondritis, GERD. She is not have any pain now. Low suspicion for PE and the patient is PERC negative. She is not describing any ripping or tearing pain to suggest a dissection. Equal symmetric breath sounds and chest wall rise medical suspicion for pneumothorax. CBC to assess white blood cell count, hemoglobin, platelets, differential. BMP to assess renal function, electrolytes, glucose, anion gap. High-sensitivity troponin, EKG, chest x-ray as part of cardiac work-up. EKG on my interpretation shows normal sinus rhythm with a ventricular of 77 bpm without sign of ischemic change or dysrhythmia. Chest x-ray my interpretation shows no acute cardiopulmonary process. Radiologist interpretation agrees. CBC unremarkable. BMP shows normal renal function and electrolytes. High-sensitivity troponin is 3. Patient had pain all day yesterday and troponin is normal at 3 and I do not believe a delta troponin is necessary. At this point I think patient stable for discharge. Recommended compression for her left arm and gave her an Herman wrap. Follow-up with PCP to ensure resolution. Impression: 1. Chest pain 2. Left arm strain Lab Data Attestation: I reviewed the patient's lab results. Labs: Laboratory Results - last 24 hr 02/05/23 02/05/23 09:45 09:45 WBC 4.9 RBC 4.11 L Hgb 12.2 Hct 37.9 MCV 92.2 MCH 29.7 MCHC 32.2 RDW Std Deviation 43.8 RDW Coeff of Bruna 12.9 Plt Count 249 MPV 9.2 Immature Gran % (Auto) 0.200 Neut % (Auto) 47.0 Lymph % (Auto) 43.1 H [place] % (Auto) 5.7 Eos % (Auto) 3.0 Baso % (Auto) 1.0 Absolute Neuts (auto) 2.3 Absolute Lymphs (auto) 2.13 Nucleated RBC % 0 Sodium 139 Potassium 3.9 Chloride 108 H Carbon Dioxide 25.0 Anion Gap 6 BUN 19 H Creatinine 0.72 Estim Creat Clear Calc 64.07 Est GFR (MDRD) Af Amer 105 Est GFR (MDRD) Non-Af 87 BUN/Creatinine Ratio 26.3 H Glucose 101 Calcium 8.6 Troponin I High Sens 3 Radiography Diagnostic Testing: Clinical Impression(s) from Imaging Studies Chest X-Ray 02/05/23 09:36 IMPRESSION: Normal x-ray examination of the chest. Electronically Signed: Aleksandr Schmidt MD at 10:09 EDT , Discharge Plan Triage Chief Complaint: Chest Pain Other Complaint: Upper Extremity Injury ED Provider: Juanito,Neno Dx/Rx/DC Orders Instructions: ED Chest Pain, Noncardiac, ED Muscle Strain, Extremity Prescriptions: No Action citalopram [Celexa] 10 mg tablet 30 mg PO QHS topiramate 50 MG tablet 50 mg PO TID aripiprazole [Abilify] 5 mg tablet 5 mg PO DAILY Breo Ellipta 100-25 mcg/dose blister with device 1 inh INHALATION DAILY Label Comments: inhale 1 puff as directed once daily hydroxyzine pamoate 50 mg capsule 50 mg PO DAILY PRN PRN (Reason: Anxiety) Label Comments: take 1 capsule by mouth four times a day if needed for anxiety furosemide 20 mg tablet 20 mg PO .SEE INSTRUCTIONS Label Comments: take 1/2 to 1 tablet by mouth once daily if needed for SWELLING in feet celecoxib [Celebrex] 200 mg capsule 200 mg PO BID gabapentin 300 mg capsule 300 mg PO TID duloxetine 20 mg capsule,delayed release(DR/EC) 60 mg PO QAM albuterol sulfate 2.5 mg /3 mL (0.083 %) solution for nebulization 2.5 mg inhalation Q4H PRN Qty: 25 2RF Rx Instructions: Use q4 hours and PRN for wheezing albuterol sulfate [Ventolin HFA] 90 mcg/actuation HFA aerosol inhaler 2 puff inhalation Q4H PRN PRN (Reason: Wheezing) Qty: 1 0RF esomeprazole magnesium [Nexium] 20 mg capsule,delayed release(DR/EC) 20 mg PO DAILY Qty: 30 0RF azelastine 137 mcg (0.1 %) aerosol,spray 2 spray intranasal BID Qty: 30 0RF Rx Instructions: administer into each nostril promethazine-codeine 6.25-10 mg/5 mL syrup 5 ml PO 4X/DAY PRN PRN (Reason: cough) 7 Days Qty: 140 0RF Primary Care Provider: Jo-Ann López Referrals: Jo-Ann López MD [Primary Care Provider] - Disposition Disposition: Home, Self Care
[2023-02-05 09:51] VITALS: BP 115/56; PULSE 75; RESP 18; O2SAT 96; O2SAT 97
[2023-02-05 10:10] LABS: Absolute Lymphocyte Count 2.13 X10^3/uL (0.83-4.51); Absolute Neutrophil Count 2.3 X10^3/uL (2.0-7.7); Basophil# 0.05 X10^3/uL; Eosinophil# 0.15 X10^3/uL; Hematocrit 37.9 % (37-47); Hemoglobin 12.2 g/dL (12.0-15.0); Lymphocyte # 2.13 X10^3/ul (0.83-4.51); Lymphocyte % 43.1 % (19-41); Mean Corp Hgb Conc 32.2 g/dL (32-36); Mean Corpuscular Hgb 29.7 pg (27.0-32.0); Mean Corpuscular Volume 92.2 fL (81-99); Mean Platelet Vol. 9.2 fl (6.2-12.0); Monocyte# 0.28 X10^3/uL; Monocyte% 5.7 % (0-10); NRBC Flagged by Analyzer 0 % (0-5); Neutrophil # 2.32 X10^3/uL (2.7-7.7); Platelet Count 249 K/mm3 (150-450); RBC Distribution Width CV 12.9 % (11.6-14.6); RBC Distribution Width SD 43.8 fl (35.1-43.9); Red Blood Count 4.11 M/mm3 (4.2-5.4); White Blood Count 4.9 K/mm3 (4.4-11.0)
[2023-02-05 10:22] LABS: Anion Gap 6 (5-15); BUN 19 mg/dL (7-18); BUN/Creat Ratio 26.3 RATIO (10-20); Calcium,Total 8.6 mg/dL (8.5-10.1); Chloride 108 mmol/L (98-107); Creatinine, Serum 0.72 mg/dL (0.55-1.02); EST Glomerular Filtration Rate 87 mL/min (>60); Est Glom Filt Rate - Afr Amer 105 mL/min (>60); Estimated Creatinine Clearance 64.07 ml/min; Glucose 101 mg/dL (74-106); Potassium 3.9 mmol/L (3.5-5.1); Sodium Level 139 mmol/L (136-145); Troponin-I HS 3 pg/mL (3.0-54.0)
[2023-02-05 10:43] VITALS: BP 110/87; RESP 16; O2SAT 98
== END 2023-02-05 10:44 | disposition home or self-care (01) ==
PROVIDERS: Emergency Provider Student in an Organized Health Care Education/Training Program; PCP Internal Medicine; Referring Provider Student in an Organized Health Care Education/Training Program; Visit Provider Student in an Organized Health Care Education/Training Program
DX: R07.9 Chest pain, unspecified (principal); J44.9 Chronic obstructive pulmonary disease, unspecified; S46.912A Strain of unspecified muscle, fascia and tendon at shoulder and upper arm level, left arm, initial encounter; Z87.891 Personal history of nicotine dependence; M25.522 Pain in left elbow; R06.00 Dyspnea, unspecified; R10.13 Epigastric pain; X58.XXXA Exposure to other specified factors, initial encounter
CPT/HCPCS: 71045; 80048; 84484; 85025; 93005; 99284; A4216

== ENCOUNTER → 2023-02-23 | Outpatient (CLI) | payer MEDICARE, MEDICAID, SELFPAY ==
--- NOTE | 2023-02-23 07:42 | CT_ITS ---
STUDY: LOW DOSE CT LUNG CANCER SCREENING REASON FOR EXAM: Female, 62 years old. Quit 07/2022. The patient smoked 1-1/2 pack per day for 45 years. RADIATION DOSAGE (If Supplied By Facility): CTDIvol = ( 4.02 ) mGy, DLP = ( 140.94 ) mGycm TECHNIQUE: No contrast was administered. Low dose technique was utilized (average mAS-38 and kVp 120). 1.25 mm axial source images with a slice interval of 1.25-mm were reconstructed in lung windows. 2.5 mm axial source images with a slice interval of 2.5-mm were reconstructed in lung windows. 5.0 mm axial source images with a slice interval of 5.0-mm were reconstructed in soft tissue windows. COMPARISON: Comparison is made with prior CT scan of the thorax dated January 20, 2013. NODULES: No suspicious nodules are seen. Emphysema: Mild degree of scarring in the right lung apex. Mild scarring in the anterior medial aspect of the right middle lobe. This has improved as compared to prior study. Endobronchial lesion: Unremarkable Aorta: Unremarkable CORONARY ARTERIES: Coronary artery calcification is not seen. Heart: Unremarkable Pulmonary artery: Unremarkable Mediastinal nodes: Small benign-appearing mediastinal lymph nodes. Other chest and abdominal findings: CT/Low Dose CT Lung Screening IMPRESSION: Lung-RADS category 2 - Continue annual screening with LDCT in 12 months. IMPORTANT NOTES FOR USE: ACR Lung-RADS Version 1.1 Assessment Categories Release Date: 2018 Category: Coded 0-4 bases on nodule(s) with highest degree of suspicion. Negative screen is defined as categories 1 and 2; a positive screen is defined as categories 3 and 4. Category 3 and 4A nodules that are unchanged on interval CT should be coded as category 2, and individuals returned to screening in 12 months. Category 4X: Category 3 or 4 nodules with additional imaging findings that increase the suspicion of lung cancer, such as spiculation, GGN that doubles in size in 1 year, enlarged lymph notes, etc. Category Modifiers: S (significant finding unrelated to lung cancer) Electronically Signed: Aleksandr Schmidt MD at 14:46 EDT ,
--- NOTE | 2023-02-24 05:42 | PFTCOMP_ITS ---
COMPLETE PULMONARY FUNCTION TEST INTERPRETATION Brief HPI: Patient is a 62-year-old female, currently under the care of Julia Coello, who presents to [facility] for complete pulmonary function tests secondary to diagnosis of asthma and nicotine use. Respiratory therapist reports good effort and reproducible results. Interpretation: Forced expiration spirometry shows no large airways obstructive ventilatory defect with an FEV1 of 91% predicted. There is no significant bronchodilator response by strict ATS criteria. Spirograms are of good quality and plateau normally. The respiratory flow volume loop shows a normal pattern. Lung volumes by body plethysmography show a normal total lung capacity at 4.21 L, 94% predicted. All other lung volumes are within normal limits. Diffusion capacity by carbon monoxide is at the lower limit of normal at 67% predicted. The airway resistance is elevated. No previous pulmonary function tests were available for review. Impression: Grossly normal pulmonary function test, but diffusion capacity is at the lower limit of normal which may indicate early emphysema versus pulmonary vascular disease.
== END | disposition home or self-care (01) ==
LOC: CT 07:41
PROVIDERS: PCP Internal Medicine; Referring Provider Nurse Practitioner Acute Care; Visit Provider Nurse Practitioner Acute Care
DX: J45.909 Unspecified asthma, uncomplicated (principal); Z87.891 Personal history of nicotine dependence
CPT/HCPCS: 71271; 94060; 94726; 94729

== ENCOUNTER → 2023-02-26 | Outpatient (CLI) | payer MEDICARE, MEDICAID, SELFPAY | END | disposition home or self-care (01) | LOC: SL 08:06 | PROVIDERS: PCP Internal Medicine; Referring Provider Nurse Practitioner Acute Care; Visit Provider Nurse Practitioner Acute Care | DX: R09.02 Hypoxemia (principal) | CPT/HCPCS: 94762 ==

== ENCOUNTER 2023-03-26 21:02 | Emergency (ER) | payer MEDICARE, MEDICAID, SELFPAY ==
[2023-03-26 21:03] VITALS: BP 185/113; PULSE 100; RESP 18; TEMP 36.7; O2SAT 97; BMI 39.9
[2023-03-26 21:24] VITALS: BP 130/91; PULSE 84; RESP 18; O2SAT 98
--- NOTE | 2023-03-26 21:40 | RAD_ITS ---
INDICATION: trauma EXAMINATION/TECHNIQUE: X-RAY - XR Ribs Unilateral W/ PA Chest Min 3 Views COMPARISON: None. FINDINGS: SOFT TISSUES: No soft tissue swelling or gas. BONES: No displaced fracture. No sclerotic or destructive changes observed. VISUALIZED LUNGS: Clear. No pneumothorax. RAD/Ribs Uni Min 3V w/PA Chest IMPRESSION: No visible fracture. No evidence of acute cardiopulmonary process. Electronically Signed: Zaki Krishnan MD at 22:19 EDT ,
--- NOTE | 2023-03-26 21:40 | RAD_ITS ---
INDICATION: trauma EXAMINATION/TECHNIQUE: X-RAY - LEFT XR Knee Complete 4 Views or More 4 VIEWS COMPARISON: March 17, 2020 FINDINGS: No soft tissue swelling or gas. Compression screw extends from lateral tibial plateau. Prior resection of the proximal fibula.. No acute fracture or subluxation.. Normal alignment. Preservation of the joint space.. No sclerotic or destructive changes observed. RAD/Knee 4 or More Views IMPRESSION: No evidence of acute injury. No significant change from March 17, 2020. Electronically Signed: Zaki Krishnan MD at 22:15 EDT ,
--- NOTE | 2023-03-26 21:40 | RAD_ITS ---
INDICATION: trauma EXAMINATION/TECHNIQUE: X-RAY - LEFT XR Ankle Min 3 Views 3 VIEWS COMPARISON: None FINDINGS: SOFT TISSUES: Inferior lateral ankle edema. No radiopaque foreign body. BONES/JOINTS: No acute fracture or subluxation.. Normal alignment. Preservation of the joint space.. No sclerotic or destructive changes observed. RAD/Ankle min 3 Views IMPRESSION: Lateral ankle edema compatible with sprain or contusion. No acute osseous finding.. Electronically Signed: Zaki Krishnan MD at 22:12 EDT ,
--- NOTE | 2023-03-26 22:46 | EDS_ITS ---
HPI HPI - Fall History of Present Illness Chief Complaint: Fall Narrative Narrative: Patient sustained a mechanical fall in the shower, she presents with left ankle, left knee and right posterior rib pain. No head injury no neck pain no other injuries PFSH PFS Medical History Asthma Bipolar disorder COPD (chronic obstructive pulmonary disease) Depression Easy bruising Heartburn History of echocardiogram History of edema History of IBS History of stress test Injury of head and neck Kidney stone Leg cramps Low iron Migraine headache MVP (mitral valve prolapse) Pulmonary embolism Shortness of breath on exertion Skin cancer Smoker Stomach ulcer Wears glasses Home Medications topiramate 50 mg tablet 50 mg PO TID migraines 07/21/15 [History Last Taken 05/06/19] aripiprazole 5 mg tablet (Abilify) 5 mg PO DAILY 03/19/20 [History Last Taken 03/17/22 08:00] fluticasone furoate 100 mcg-vilanterol 25 mcg/dose inhalation powder (Breo Ellipta) 1 inh inhalation DAILY 03/17/22 [History Last Taken Unknown] furosemide 20 mg tablet 20 mg PO .SEE INSTRUCTIONS 03/17/22 [History Last Taken Unknown] hydroxyzine pamoate 50 mg capsule 50 mg PO DAILY PRN PRN Anxiety 03/17/22 [History Last Taken Unknown] albuterol sulfate 2.5 mg/3 mL (0.083 %) solution for nebulization 2.5 mg (3 mL) inhalation Q4H PRN #25 vials 04/26/22 [Rx Last Taken Unknown] albuterol sulfate 90 mcg/actuation aerosol inhaler (Ventolin HFA) 2 puff inhalation Q4H PRN PRN Wheezing ##1 04/26/22 [Rx Last Taken Unknown] esomeprazole magnesium 20 mg capsule,delayed release (Nexium) 20 mg PO DAILY #30 caps 07/08/22 [Rx Last Taken Unknown] azelastine 137 mcg (0.1 %) nasal spray aerosol 2 spray intranasal BID #30 mL 09/13/22 [Rx Last Taken Unknown] promethazine 6.25 mg-codeine 10 mg/5 mL syrup 5 ml PO 4X/DAY PRN PRN cough 7 days #140 mL 09/13/22 [Rx Last Taken Unknown] celecoxib 200 mg capsule (Celebrex) 200 mg PO BID inflamation 01/21/23 [History Last Taken Unknown] citalopram 10 mg tablet (Celexa) 30 mg PO QHS 01/21/23 [History Last Taken Unknown] duloxetine 20 mg capsule,delayed release 60 mg PO QAM depression 01/21/23 [History Last Taken Unknown] gabapentin 300 mg capsule 300 mg PO TID 01/21/23 [History Last Taken Unknown] naproxen 500 mg tablet (Naprosyn) 500 mg PO BID PRN pain #20 tabs 03/26/23 [Rx Last Taken Unknown] tizanidine 2 mg capsule 2 mg PO Q8H PRN muscle spasticity #10 caps 03/26/23 [Rx Last Taken Unknown] Allergy/AdvReac Type Severity Reaction Status Date / Time latex Allergy Itching Verified 03/26/23 21:06 Penicillins Allergy Hives Verified 03/26/23 21:06 Surgical History History of cholecystectomy History of foot surgery History of hysterectomy History of surgery on lower extremity History of ureter repair Social History household members: none Smoking Status: Former smoker Tobacco: How many years used: 50 alcohol intake: former details: 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 substance use type: does not use ROS ROS ED ROS Narrative Social: Noncontributory Medications: Reviewed Past medical history: Reviewed Review of systems General: Patient has no head injury or loss of consciousness HEENT: No facial injury Neck: No neck pain Cardiovascular: Patient denies any chest pain or palpitations Chest wall: Right posterior rib pain Respiratory: There is no shortness of breath GI: There is no nausea vomiting diarrhea or abdominal pain, no abdominal wall contusions Skin: No lacerations or abrasions Neurological: Patient has no memory loss, confusion, or any focal weakness Psychiatric: No recent behavioral changes Back: No back pain, no problems with ambulation Musculoskeletal: Left knee and left ankle pain All other systems are reviewed and normal EXAM Physical Exam Narrative Exam Narrative: Physical exam Vitals reviewed, and initially hypertensive however without giving her any medications her blood pressure is now much better General: Patient is sitting in bed she is comfortable HEENT: No facial injury Head: No head injury Eyes: Extraocular movements intact Neck: No C-spine tenderness with full range of motion Heart: Regular rate normal pulses Chest wall: No anterior chest wall pain, right posterior rib pain right below the scapula. Lungs clear lungs bilaterally with normal inspiration and expiration without tachypnea GI: Abdomen is soft and nontender there is no mass no guarding no abdominal wall contusion : Stable pelvis Musculoskeletal: Swelling and tenderness over the lateral malleolus of the left ankle, no laxity. There is anterior knee pain normal extensor mechanism no laxity on stressors Skin: No abrasions or laceration Neurological: Patient is alert and oriented with no focal deficits Const Vital Signs: 03/26/23 21:03 03/26/23 21:24 Temperature 98.1 F Temperature Source Temporal Pulse Rate 100 84 Respiratory Rate 18 18 Blood Pressure 185/113 H 130/91 H Blood Pressure Mean 137 104 Pulse Ox 97 98 Oxygen Delivery Method Room Air Room Air MDM MDM MDM Narrative Medical decision making narrative: Left ankle x-ray read by me as normal Left knee x-ray read by me as normal Rib x-ray read by me as normal Patient has normal x-rays. She appears well, she does not meet criteria for any other x-rays or CT of the head or CT of the chest. She had a mechanical for therefore I do not believe she needs blood work. She appears well and I believe she can be safely discharged home in stable condition. If anything changes she is to return. I will give her analgesia for home she drove and does not require analgesia in the ED. Radiography Diagnostic Testing: Clinical Impression(s) from Imaging Studies Ankle X-Ray 03/26/23 21:40 IMPRESSION: Lateral ankle edema compatible with sprain or contusion. No acute osseous finding.. Electronically Signed: Zaki Krishnan MD at 22:12 EDT , Knee X-Ray 03/26/23 21:40 IMPRESSION: No evidence of acute injury. No significant change from March 17, 2020. Electronically Signed: Zaki Krishnan MD at 22:15 EDT , Ribs w/Chest X-Ray 03/26/23 21:40 IMPRESSION: No visible fracture. No evidence of acute cardiopulmonary process. Electronically Signed: Zaki Krishnan MD at 22:19 EDT Reading Location ID and State: [facility] / [place] Tel , Service support , Discharge Plan Triage Chief Complaint: Fall ED Provider: Adriano Gonsalves Dx/Rx/DC Orders Clinical Impression: Fall, Left ankle sprain, Contusion of knee, left, Contusion of rib Instructions: Bone Contusion Prescriptions: New tizanidine 2 mg capsule 2 mg PO Q8H PRN (Reason: muscle spasticity) Qty: 10 0RF naproxen [Naprosyn] 500 mg tablet 500 mg PO BID PRN (Reason: pain) Qty: 20 0RF No Action citalopram [Celexa] 10 mg tablet 30 mg PO QHS topiramate 50 MG tablet 50 mg PO TID aripiprazole [Abilify] 5 mg tablet 5 mg PO DAILY Breo Ellipta 100-25 mcg/dose blister with device 1 inh INHALATION DAILY Label Comments: inhale 1 puff as directed once daily hydroxyzine pamoate 50 mg capsule 50 mg PO DAILY PRN PRN (Reason: Anxiety) Label Comments: take 1 capsule by mouth four times a day if needed for anxiety furosemide 20 mg tablet 20 mg PO .SEE INSTRUCTIONS Label Comments: take 1/2 to 1 tablet by mouth once daily if needed for SWELLING in feet celecoxib [Celebrex] 200 mg capsule 200 mg PO BID gabapentin 300 mg capsule 300 mg PO TID duloxetine 20 mg capsule,delayed release(DR/EC) 60 mg PO QAM albuterol sulfate 2.5 mg /3 mL (0.083 %) solution for nebulization 2.5 mg inhalation Q4H PRN Qty: 25 2RF Rx Instructions: Use q4 hours and PRN for wheezing albuterol sulfate [Ventolin HFA] 90 mcg/actuation HFA aerosol inhaler 2 puff inhalation Q4H PRN PRN (Reason: Wheezing) Qty: 1 0RF esomeprazole magnesium [Nexium] 20 mg capsule,delayed release(DR/EC) 20 mg PO DAILY Qty: 30 0RF azelastine 137 mcg (0.1 %) aerosol,spray 2 spray intranasal BID Qty: 30 0RF Rx Instructions: administer into each nostril promethazine-codeine 6.25-10 mg/5 mL syrup 5 ml PO 4X/DAY PRN PRN (Reason: cough) 7 Days Qty: 140 0RF Primary Care Provider: Jo-Ann López Referrals: Jo-Ann López MD [Primary Care Provider] - 3-5 Days Disposition Disposition: Home, Self Care
== END 2023-03-26 23:36 | disposition home or self-care (01) ==
PROVIDERS: Emergency Provider Emergency Medicine; PCP Internal Medicine; Visit Provider Emergency Medicine
DX: S93.402A Sprain of unspecified ligament of left ankle, initial encounter (principal); J44.9 Chronic obstructive pulmonary disease, unspecified; S80.02XA Contusion of left knee, initial encounter; S20.219A Contusion of unspecified front wall of thorax, initial encounter; Z87.891 Personal history of nicotine dependence; W18.2XXA Fall in (into) shower or empty bathtub, initial encounter
CPT/HCPCS: 71101; 73564; 73610; 96374; 96375; 99281; 99282

== ENCOUNTER 2023-04-17 11:46 | Emergency (ER) | payer MEDICARE, MEDICAID, SELFPAY ==
[2023-04-17 11:47] VITALS: BP 120/79; PULSE 97; RESP 18; TEMP 36.3; O2SAT 98; BMI 41.3
--- NOTE | 2023-04-17 12:10 | EDS_ITS ---
HPI <RENEE Yousif - Last Filed: 04/17/23 17:16> History of Present Illness Chief Complaint: Lower Extremity Injury Narrative Narrative: Patient presenting today with pain to her left knee, ventral aspect of her left lower leg, left lateral malleolus, and the left Achilles that she has had for about a month now after a mechanical fall that occurred while she was in her shower. She denies any erythema or edema to these areas. She did come to the e mergency department after that fall and had x-rays of her left knee, left ankle, and left tibia/fibula that were unremarkable. She has seen her PCP for this issue who recommended that she follow-up with orthopedics and start physical therapy. However, she wanted to have our opinion. She denies any new injury. [facility] <RENEE Yousif - Last Filed: 04/17/23 17:16> [facility] Medical History Asthma Bipolar disorder COPD (chronic obstructive pulmonary disease) Depression Easy bruising Heartburn History of echocardiogram History of edema History of IBS History of stress test Injury of head and neck Kidney stone Leg cramps Low iron Migraine headache MVP (mitral valve prolapse) Pulmonary embolism Shortness of breath on exertion Skin cancer Smoker Stomach ulcer Wears glasses Home Medications topiramate 50 mg tablet 50 mg PO TID migraines 07/21/15 [History Last Taken 05/06/19] aripiprazole 5 mg tablet (Abilify) 5 mg PO DAILY 03/19/20 [History Last Taken 03/17/22 08:00] fluticasone furoate 100 mcg-vilanterol 25 mcg/dose inhalation powder (Breo Ellipta) 1 inh inhalation DAILY 03/17/22 [History Last Taken Unknown] furosemide 20 mg tablet 20 mg PO .SEE INSTRUCTIONS 03/17/22 [History Last Taken Unknown] hydroxyzine pamoate 50 mg capsule 50 mg PO DAILY PRN PRN Anxiety 03/17/22 [History Last Taken Unknown] albuterol sulfate 2.5 mg/3 mL (0.083 %) solution for nebulization 2.5 mg (3 mL) inhalation Q4H PRN #25 vials 04/26/22 [Rx Last Taken Unknown] albuterol sulfate 90 mcg/actuation aerosol inhaler (Ventolin HFA) 2 puff inhalation Q4H PRN PRN Wheezing ##1 04/26/22 [Rx Last Taken Unknown] esomeprazole magnesium 20 mg capsule,delayed release (Nexium) 20 mg PO DAILY #30 caps 07/08/22 [Rx Last Taken Unknown] azelastine 137 mcg (0.1 %) nasal spray aerosol 2 spray intranasal BID #30 mL 09/13/22 [Rx Last Taken Unknown] promethazine 6.25 mg-codeine 10 mg/5 mL syrup 5 ml PO 4X/DAY PRN PRN cough 7 days #140 mL 09/13/22 [Rx Last Taken Unknown] celecoxib 200 mg capsule (Celebrex) 200 mg PO BID inflamation 01/21/23 [History Last Taken Unknown] citalopram 10 mg tablet (Celexa) 30 mg PO QHS 01/21/23 [History Last Taken Unknown] duloxetine 20 mg capsule,delayed release 60 mg PO QAM depression 01/21/23 [History Last Taken Unknown] gabapentin 300 mg capsule 300 mg PO TID 01/21/23 [History Last Taken Unknown] naproxen 500 mg tablet (Naprosyn) 500 mg PO BID PRN pain #20 tabs 03/26/23 [Rx Last Taken Unknown] tizanidine 2 mg capsule 2 mg PO Q8H PRN muscle spasticity #10 caps 03/26/23 [Rx Last Taken Unknown] Allergy/AdvReac Type Severity Reaction Status Date / Time latex Allergy Itching Verified 04/17/23 11:48 Penicillins Allergy Hives Verified 04/17/23 11:48 Surgical History History of cholecystectomy History of foot surgery History of hysterectomy History of surgery on lower extremity History of ureter repair Social History household members: none Smoking Status: Former smoker Tobacco: How many years used: 50 alcohol intake: former details: 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 substance use type: does not use ROS <RENEE Yousif - Last Filed: 04/17/23 17:16> ROS ED Constitutional Constitutional ED: Denies chills or fever(s) Cardiovascular Cardiovascular: Denies chest pain Respiratory/Chest Respiratory/Chest: Denies cough or dyspnea Gastrointestinal Gastrointestinal: Denies abdominal pain, nausea or vomiting Musculoskeletal Musculoskeletal: Reports arthralgias and myalgias; Denies back pain Integumentary Denies abscess, Abrasions or rash Neurologic Neurologic: Denies paresthesias or weakness EXAM <RENEE Yousif - Last Filed: 04/17/23 17:16> Physical Exam Const Vital Signs: 04/17/23 11:47 04/17/23 13:24 Temperature 97.3 F L 97.8 F Temperature Source Temporal Temporal Pulse Rate 97 77 Respiratory Rate 18 16 Blood Pressure 120/79 124/93 H Blood Pressure Mean 92 103 Pulse Ox 98 Oxygen Delivery Method Room Air Room Air Positive well nourished, well developed and no apparent distress General Appearance ED: well developed HEENT Reports normocephalic and head/scalp atraumatic Mouth ED: Yes moist mucous membranes normal Eyes PERRL and EOMs intact bilaterally Neck full ROM and supple Chest Wall inspection of chest normal Resp normal respiratory effort and clear to auscultation bilaterally Cardio regular rate and regular rhythm GI soft to palpation, non-tender, non-distended and no masses Back/Spine normal ROM and normal to inspection Extremity normal to inspection and full ROM Extremity Narrative: No edema, erythema, or ecchymosis to the left knee, left ankle, left foot. DP pulses 2+ and equal bilaterally. Neuro oriented x3, CN's II-XII intact bilaterally, moves all extremities, no focal motor deficits and no sensory deficits noted Sensorium / Orientation: awake and alert Psych mental status grossly normal and thought process normal Skin no rashes or lesions noted and no wounds <Juarez Pearce MD - Last Filed: 04/17/23 21:20> Physical Exam Const Vital Signs: 04/17/23 11:47 04/17/23 13:24 Temperature 97.3 F L 97.8 F Temperature Source Temporal Temporal Pulse Rate 97 77 Respiratory Rate 18 16 Blood Pressure 120/79 124/93 H Blood Pressure Mean 92 103 Pulse Ox 98 Oxygen Delivery Method Room Air Room Air MDM <RENEE Yousif - Last Filed: 04/17/23 17:16> [facility] MDM Narrative Medical decision making narrative: Patient presenting today with pain to the ventral aspect of her knee, proximal aspect of her tibia/fibula, lateral malleolus, and Achilles all on the left side. She has had this pain ever since she fell in her shower about a month ago. She did have x-rays of her left knee, tib/fib, and ankle at that time that was unremarkable. I do not feel these need repeated. She has seen her PCP for this issue who encourages her to start physical therapy and see an orthopedic provider, she reports she cannot afford physical therapy and wanted to have our opinion. She denies any new injury, she is able to ambulate and bear weight. She has been taking naproxen without relief. I have considered DVT, but that does not seem consistent with where patient is having pain, she has had no erythema or edema. Exam consistent with contusions or soft tissue injury. I have given her an orthopedic referral, she is given Toradol here for pain as well as a Herman wrap bandage. She was given a work note for today. She will be discharged home in stable condition and is comfortable with plan. <Juarez Pearce MD - Last Filed: 04/17/23 21:20> [facility] MDM Narrative Medical decision making narrative: Patient presenting today with pain to the ventral aspect of her knee, proximal aspect of her tibia/fibula, lateral malleolus, and Achilles all on the left side. She has had this pain ever since she fell in her shower about a month ago . She did have x-rays of her left knee, tib/fib, and ankle at that time that was unremarkable. I do not feel these need repeated. She has seen her PCP for this issue who encourages her to start physical therapy and see an orthopedic provider, she reports she cannot afford physical therapy and wanted to have our opinion. She denies any new injury, she is able to ambulate and bear weight. She has been taking naproxen without relief. I have considered DVT, but that does not seem consistent with where patient is having pain, she has had no erythema or edema. Exam consistent with contusions or soft tissue injury. I have given her an orthopedic referral, she is given Toradol here for pain as well as a Herman wrap bandage. She was given a work note for today. She will be discharged home in stable condition and is comfortable with plan. I have personally performed a face to face assessment of the patient and have reviewed the MIRI Note. I performed a substantive portion of the visit including all aspects of the following. My montalvo findings include: History is left lower extremity pain x1 month status post fall. Previous x-rays performed. Recommended to go to orthopedics and physical therapy, but has not yet done so. Exam is afebrile. Vital signs noted. Positive extension and flexion of left knee. Able to raise leg off bed without difficulty. Palpable dorsalis pedis pulse. Medical Decision Making I reviewed her prior records. I do not feel that she needs repeat x-rays. She will be placed in an Herman wrap and referred to orthopedics. Continue ice and elevation at home as needed. Discharge. Other additions or changes: [None] Discharge Plan Triage Chief Complaint: Lower Extremity Injury ED Midlevel Provider: Felisa Orosco ED Provider: Juarez Pearce Dx/Rx/DC Orders Clinical Impression: Leg pain, left, Knee pain, left, Ankle pain, left Instructions: ED RACHEL Prescriptions: No Action citalopram [Celexa] 10 mg tablet 30 mg PO QHS topiramate 50 MG tablet 50 mg PO TID aripiprazole [Abilify] 5 mg tablet 5 mg PO DAILY fluticasone furoate-vilanterol [Breo Ellipta] 100-25 mcg/dose blister with device 1 inh INHALATION DAILY Label Comments: inhale 1 puff as directed once daily hydroxyzine pamoate 50 mg capsule 50 mg PO DAILY PRN PRN (Reason: Anxiety) Label Comments: take 1 capsule by mouth four times a day if needed for anxiety furosemide 20 mg tablet 20 mg PO .SEE INSTRUCTIONS Label Comments: take 1/2 to 1 tablet by mouth once daily if needed for SWELLING in feet celecoxib [Celebrex] 200 mg capsule 200 mg PO BID gabapentin 300 mg capsule 300 mg PO TID duloxetine 20 mg capsule,delayed release(DR/EC) 60 mg PO QAM albuterol sulfate 2.5 mg /3 mL (0.083 %) solution for nebulization 2.5 mg inhalation Q4H PRN Qty: 25 2RF Rx Instructions: Use q4 hours and PRN for wheezing albuterol sulfate [Ventolin HFA] 90 mcg/actuation HFA aerosol inhaler 2 puff inhalation Q4H PRN PRN (Reason: Wheezing) Qty: 1 0RF esomeprazole magnesium [Nexium] 20 mg capsule,delayed release(DR/EC) 20 mg PO DAILY Qty: 30 0RF azelastine 137 mcg (0.1 %) aerosol,spray 2 spray intranasal BID Qty: 30 0RF Rx Instructions: administer into each nostril promethazine-codeine 6.25-10 mg/5 mL syrup 5 ml PO 4X/DAY PRN PRN (Reason: cough) 7 Days Qty: 140 0RF tizanidine 2 mg capsule 2 mg PO Q8H PRN (Reason: muscle spasticity) Qty: 10 0RF naproxen [Naprosyn] 500 mg tablet 500 mg PO BID PRN (Reason: pain) Qty: 20 0RF Stand Alone Forms: ED Work / School Excuse Primary Care Provider: Jo-Ann López Referrals: Jo-Ann López MD [Primary Care Provider] - Vitor White MD [Med Staff - Active Staff] - 5-7 Days Activity Restrictions/Additional Instructions: Please follow-up with your PCP, follow-up with orthopedics. Disposition Disposition: Home, Self Care Discharge Date/Time: 04/17/23 13:25
[2023-04-17] MEDS: Ketorolac 15 MG/ML Vial IM (12:58)
[2023-04-17 13:24] VITALS: BP 124/93; PULSE 77; RESP 16; TEMP 36.6
== END 2023-04-17 13:25 | disposition home or self-care (01) ==
PROVIDERS: Emergency Provider Emergency Medicine; PCP Internal Medicine; Visit Provider Emergency Medicine
DX: M79.605 Pain in left leg (principal); J44.9 Chronic obstructive pulmonary disease, unspecified; M25.572 Pain in left ankle and joints of left foot; M25.562 Pain in left knee; Z87.891 Personal history of nicotine dependence
CPT/HCPCS: 96372; 99282

== ENCOUNTER 2023-05-06 15:02 | Emergency (ER) | payer MEDICARE, MEDICAID, SELFPAY ==
[2023-05-06 15:03] VITALS: BP 124/86; PULSE 110; RESP 18; TEMP 36.6; O2SAT 95; BMI 42.2
--- NOTE | 2023-05-06 15:46 | EDS_ITS ---
HPI History of Present Illness Chief Complaint: Lower Extremity Injury [facility] Medical History Asthma Bipolar disorder COPD (chronic obstructive pulmonary disease) Depression Easy bruising Heartburn History of echocardiogram History of edema History of IBS History of stress test Injury of head and neck Kidney stone Leg cramps Low iron Migraine headache MVP (mitral valve prolapse) Pulmonary embolism Shortness of breath on exertion Skin cancer Smoker Stomach ulcer Wears glasses Home Medications topiramate 50 mg tablet 50 mg PO TID migraines 07/21/15 [History Last Taken 05/06/19] aripiprazole 5 mg tablet (Abilify) 5 mg PO DAILY 03/19/20 [History Last Taken 03/17/22 08:00] fluticasone furoate 100 mcg-vilanterol 25 mcg/dose inhalation powder (Breo Ellipta) 1 inh inhalation DAILY 03/17/22 [History Last Taken Unknown] furosemide 20 mg tablet 20 mg PO .SEE INSTRUCTIONS 03/17/22 [History Last Taken Unknown] hydroxyzine pamoate 50 mg capsule 50 mg PO DAILY PRN PRN Anxiety 03/17/22 [History Last Taken Unknown] albuterol sulfate 2.5 mg/3 mL (0.083 %) solution for nebulization 2.5 mg (3 mL) inhalation Q4H PRN #25 vials 04/26/22 [Rx Last Taken Unknown] albuterol sulfate 90 mcg/actuation aerosol inhaler (Ventolin HFA) 2 puff inhalation Q4H PRN PRN Wheezing ##1 04/26/22 [Rx Last Taken Unknown] esomeprazole magnesium 20 mg capsule,delayed release (Nexium) 20 mg PO DAILY #30 caps 07/08/22 [Rx Last Taken Unknown] azelastine 137 mcg (0.1 %) nasal spray aerosol 2 spray intranasal BID #30 mL 09/13/22 [Rx Last Taken Unknown] promethazine 6.25 mg-codeine 10 mg/5 mL syrup 5 ml PO 4X/DAY PRN PRN cough 7 days #140 mL 09/13/22 [Rx Last Taken Unknown] celecoxib 200 mg capsule (Celebrex) 200 mg PO BID inflamation 01/21/23 [History Last Taken Unknown] citalopram 10 mg tablet (Celexa) 30 mg PO QHS 01/21/23 [History Last Taken Unknown] duloxetine 20 mg capsule,delayed release 60 mg PO QAM depression 01/21/23 [History Last Taken Unknown] gabapentin 300 mg capsule 300 mg PO TID 01/21/23 [History Last Taken Unknown] naproxen 500 mg tablet (Naprosyn) 500 mg PO BID PRN pain #20 tabs 03/26/23 [Rx Last Taken Unknown] tizanidine 2 mg capsule 2 mg PO Q8H PRN muscle spasticity #10 caps 03/26/23 [Rx Last Taken Unknown] Allergy/AdvReac Type Severity Reaction Status Date / Time latex Allergy Itching Verified 05/06/23 15:04 Penicillins Allergy Hives Verified 05/06/23 15:04 Surgical History History of cholecystectomy History of foot surgery History of hysterectomy History of surgery on lower extremity History of ureter repair Social History household members: none Smoking Status: Former smoker Tobacco: How many years used: 50 alcohol intake: former details: 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 substance use type: does not use EXAM Physical Exam Const Vital Signs: 05/06/23 15:03 Temperature 97.9 F Temperature Source Temporal Pulse Rate 110 H Respiratory Rate 18 Blood Pressure 124/86 H Blood Pressure Mean 98 Pulse Ox 95 Oxygen Delivery Method Room Air [facility] MDM MDM Narrative Medical decision making narrative: HISTORY OF PRESENT ILLNESS: 60-year-old female here with bilateral leg pain for 2 days. Notes lower extremity edema and shortness of breath. Notes dyspnea on exertion. Denies any jaundice or rash. Quadrant abdominal pain. Denies any decreased urination. Denies any chest pain. He is not on blood thinners. The patient denies recent surgery in the last 4 weeks or immobilization in the last 3 days, hemoptysis, unilateral leg swelling or malignancy with treatment the last 6 months. No estrogen use noted. REVIEW OF SYSTEMS: Pertinent positives: Pertinent negatives: Numbness, loss of sensation, paresthesias, diarrhea, urinary retention, palpitations, PHYSICAL EXAM: Nursing triage notes reviewed, Vital signs reviewed Constitutional: please see mdm HENT: MMM Eyes: Pupils equal round and reactive to light, Extraocular muscles intact Neck: No stridor, no JVD, full neck ROM Lungs: Clear to auscultation, No wheezing or rales. No increased work of breathing, no conversational dyspnea, no accessory muscle use, no nasal flaring. No respiratory distress noted Heart: Regular rate and rhythm, No murmurs, No rubs and No gallops, 2+ distal pulses (radial, femoral, posterior tibial) in all extremities Abdomen: Soft, there is no tenderness, rigidity, rebound or guarding, no obvious peritoneal signs, no palpable pulsatile abdominal masses, no auscultated abdominal bruit : No CVAT Extremities: No edema Neuro: No focal neurological deficits, cranial nerves II through XII intact, 5/5 strength in all extremities. Intact sensation to light touch in all extremities, 2+ reflexes bilateral patella tendons. Normal gait. No ataxia. Skin: No rash or lesions noted MEDICAL DECISION MAKING: Chief Complaint: Lower extremity edema, shortness of breath External records reviewed: Seen in the emergency department approximately 3 weeks ago for left knee pain. X-rays of the left knee, left ankle from March 26, 2023 showed no evidence of acute fracture dislocation Factors affecting care: History of asthma, bipolar disorder, IBS, pulmonary Social determinants of health: none History obtained from others: The patient's nurse practitioner Consults: none ALL IMAGES (IF OBTAINED) HAVE BEEN PERSONALLY REVIEWED AND INTERPRETED BY MYSELF. EKG with normal sinus rhythm, left axis deviation, normal normals, no STEMI. CBC with no leukocytosis to suggest systemic elevation, mild anemia, no thrombocytopenia BMP without significant electrolyte abnormalities, no evidence of KALEE, no anion gap to suggest endorgan hypoperfusion D-dimer negative making VTE less likely Troponin is negative, no evidence of myocardial ischemia BNP within normal limits lower suspicion for heart failure or significant volume overload or increased transmural pressure LFTs show no evidence of hepatobiliary pathology. MDM Narrative: Patient is hemodynamically stable, tachycardic, afebrile nontoxic-appearing I considered the following differential diagnosis: CHF, ACS, arrhythmia, PE, DVT, liver failure, kidney failure I obtained a broad lab and imaging work-up to further elucidate the etiology patient complaints. Labs without evidence of myocardial anemia, CHF, VTE, liver failure kidney failure. EKG was nonischemic present no obvious arrhythmias. Lungs were clear. Chest x-ray was read and reviewed by myself showed no evidence of CHF or pneumonia. No clear etiology to explain the patient's symptoms. We ambulated the patient. She displayed no evidence of exertional hypoxia. She is appropriate discharge home. The patient and/or family, caregivers express understanding. The patient and/or family, caregivers agrees with the plan. Total critical care time today provided was at least 0 minutes. This excludes separately billable procedures. Critical care time (if documented) is secondary to the patient having high probability of clinically significant/life threatening deterioration in the patient's condition which required my urgent intervention. Shared decision making: I will have a discussion with the patient and or visitors regarding risk/benefits of further testing or admission. They will be made aware of of the risk/benefits inherent in this decision they will be given the opportunity to voice understanding. Lab Data Attestation: I reviewed the patient's lab results. Labs: Laboratory Results - last 24 hr 05/06/23 16:35 WBC 9.1 RBC 3.88 L Hgb 11.5 L Hct 36.5 L MCV 94.1 MCH 29.6 MCHC 31.5 L RDW Std Deviation 46.6 H RDW Coeff of Bruna 13.5 Plt Count 272 MPV 9.4 Immature Gran % (Auto) 0.300 Neut % (Auto) 66.8 Lymph % (Auto) 26.6 [place] % (Auto) 3.9 Eos % (Auto) 1.6 Baso % (Auto) 0.8 Absolute Neuts (auto) 6.1 Absolute Lymphs (auto) 2.43 Nucleated RBC % 0 D-Dimer Quant (PE/DVT) 0.34 Sodium 141 Potassium 3.5 Chloride 110 H Carbon Dioxide 25.0 Anion Gap 6 BUN 14 Creatinine 0.78 Estim Creat Clear Calc 59.15 Est GFR (MDRD) Af Amer 96 Est GFR (MDRD) Non-Af 80 BUN/Creatinine Ratio 18.0 Glucose 99 Calcium 8.6 Total Bilirubin 0.30 Direct Bilirubin 0.08 AST 15 ALT 19 Alkaline Phosphatase 71 Troponin I High Sens 3 B-Natriuretic Peptide 31.5 Total Protein 6.4 Albumin 3.1 L Globulin 3.3 Radiography Chest X-Ray - ED: Read by ED Physician Diagnostic Testing: Clinical Impression(s) from Imaging Studies Chest X-Ray 05/06/23 18:09 IMPRESSION: No radiographic evidence of acute cardiopulmonary disease. Electronically Signed: Elvis Vargas MD at 18:25 EDT , I have personally reviewed the patient's chest x-ray. Chest x-ray is unremarkable for pulmonary edema, pneumothorax, pneumonia or focal cardiopulmonary abnormality. Discharge Plan Triage Chief Complaint: Lower Extremity Injury ED Provider: Anil Prieto Dx/Rx/DC Orders Clinical Impression: Acute dyspnea, Leg swelling Instructions: ED Dyspnea, ED Peripheral Edema, Bilateral Prescriptions: No Action citalopram [Celexa] 10 mg tablet 30 mg PO QHS topiramate 50 MG tablet 50 mg PO TID aripiprazole [Abilify] 5 mg tablet 5 mg PO DAILY fluticasone furoate-vilanterol [Breo Ellipta] 100-25 mcg/dose blister with device 1 inh INHALATION DAILY Patient Comments: inhale 1 puff as directed once daily hydroxyzine pamoate 50 mg capsule 50 mg PO DAILY PRN PRN (Reason: Anxiety) Patient Comments: take 1 capsule by mouth four times a day if needed for anxiety furosemide 20 mg tablet 20 mg PO .SEE INSTRUCTIONS Patient Comments: take 1/2 to 1 tablet by mouth once daily if needed for SWELLING in feet celecoxib [Celebrex] 200 mg capsule 200 mg PO BID gabapentin 300 mg capsule 300 mg PO TID duloxetine 20 mg capsule,delayed release(DR/EC) 60 mg PO QAM albuterol sulfate 2.5 mg /3 mL (0.083 %) solution for nebulization 2.5 mg inhalation Q4H PRN Qty: 25 2RF Rx Instructions: Use q4 hours and PRN for wheezing albuterol sulfate [Ventolin HFA] 90 mcg/actuation HFA aerosol inhaler 2 puff inhalation Q4H PRN PRN (Reason: Wheezing) Qty: 1 0RF esomeprazole magnesium [Nexium] 20 mg capsule,delayed release(DR/EC) 20 mg PO DAILY Qty: 30 0RF azelastine 137 mcg (0.1 %) aerosol,spray 2 spray intranasal BID Qty: 30 0RF Rx Instructions: administer into each nostril promethazine-codeine 6.25-10 mg/5 mL syrup 5 ml PO 4X/DAY PRN PRN (Reason: cough) 7 Days Qty: 140 0RF tizanidine 2 mg capsule 2 mg PO Q8H PRN (Reason: muscle spasticity) Qty: 10 0RF naproxen [Naprosyn] 500 mg tablet 500 mg PO BID PRN (Reason: pain) Qty: 20 0RF Primary Care Provider: Jo-Ann López Referrals: Jo-Ann López MD [Primary Care Provider] - Activity Restrictions/Additional Instructions: Thank you for trusting us with your care today! Please take Tylenol (2 pills, 650 mg), ibuprofen (2 pills, 400 mg) every 6 hours as needed for pain and fever control. Please return to the emergency department if your symptoms change or worsen. Specifically develop worsening shortness of breath, cough, you lose consciousness, develop chest pain, you develop unilateral leg swelling Please follow with your primary care physician for further outpatient evaluation and management. Disposition Disposition: Home, Self Care Discharge Date/Time: 05/06/23 19:03
--- NOTE | 2023-05-06 16:20 | EKG12_ITS ---
Test Reason : SOB Blood Pressure : / mmHG Vent. Rate : 080 BPM Atrial Rate : 080 BPM P-R Int : 126 ms QRS Dur : 088 ms QT Int : 394 ms P-R-T Axes : 044 002 042 degrees QTc Int : 454 ms Normal sinus rhythm Low voltage QRS Borderline ECG Confirmed by PENNY CUMMINGS, DELIA ([id number]), publications editor CORI CASTANEDA ([id number]) on 05/11/2023 12:55:49 P M Referred By: Confirmed By:VERONA FRANCIS MD
[2023-05-06 16:52] LABS: Absolute Lymphocyte Count 2.43 X10^3/uL (0.83-4.51); Absolute Neutrophil Count 6.1 X10^3/uL (2.0-7.7); Basophil# 0.07 X10^3/uL; Basophil% 0.8 % (0-1); Eosinophil# 0.15 X10^3/uL; Eosinophils% 1.6 % (0-5); Hematocrit 36.5 % (37-47); Hemoglobin 11.5 g/dL (12.0-15.0); Lymphocyte # 2.43 X10^3/ul (0.83-4.51); Lymphocyte % 26.6 % (19-41); Mean Corp Hgb Conc 31.5 g/dL (32-36); Mean Corpuscular Hgb 29.6 pg (27.0-32.0); Mean Corpuscular Volume 94.1 fL (81-99); Mean Platelet Vol. 9.4 fl (6.2-12.0); Monocyte# 0.36 X10^3/uL; Monocyte% 3.9 % (0-10); NRBC Flagged by Analyzer 0 % (0-5); Neutrophil # 6.09 X10^3/uL (2.7-7.7); Neutrophil % 66.8 % (47-70); Platelet Count 272 K/mm3 (150-450); RBC Distribution Width CV 13.5 % (11.6-14.6); RBC Distribution Width SD 46.6 fl (35.1-43.9); Red Blood Count 3.88 M/mm3 (4.2-5.4); White Blood Count 9.1 K/mm3 (4.4-11.0)
[2023-05-06 17:03] LABS: D-Dimer Quantitative (DVT/PE) 0.34 FEU/ug/m (0.27-0.49)
[2023-05-06 17:09] LABS: BNP,B-Type NATRIURETIC PEPTIDE 31.5 pg/mL (0-100)
[2023-05-06 17:21] LABS: AST(SGOT) 15 U/L (15-37); Alanine Aminotransfer ALT/SGPT 19 U/L (13-56); Albumin, Serum 3.1 g/dL (3.2-5.0); Alkaline Phosphatase 71 U/L (45-117); Anion Gap 6 (5-15); BUN 14 mg/dL (7-18); Bilirubin, Direct 0.08 mg/dL (0.00-0.30); Calcium,Total 8.6 mg/dL (8.5-10.1); Chloride 110 mmol/L (98-107); Creatinine, Serum 0.78 mg/dL (0.55-1.02); EST Glomerular Filtration Rate 80 mL/min (>60); Est Glom Filt Rate - Afr Amer 96 mL/min (>60); Estimated Creatinine Clearance 59.15 ml/min; Globulin 3.3 g/dL (2.2-4.2); Glucose 99 mg/dL (74-106); Potassium 3.5 mmol/L (3.5-5.1); Protein, Total 6.4 g/dL (6.4-8.2); Sodium Level 141 mmol/L (136-145); Troponin-I HS 3 pg/mL (3.0-54.0)
--- NOTE | 2023-05-06 18:09 | RAD_ITS ---
EXAM: XR CHEST, 1 VIEW CLINICAL INDICATION: SOB TECHNIQUE: Frontal view of the chest. COMPARISON: 5.29.23 FINDINGS: LUNGS AND PLEURAL SPACES: Unremarkable. No consolidation or edema. No pneumothorax. No effusion. HEART: Unremarkable. Cardiac silhouette not enlarged. MEDIASTINUM: Central airways and mediastinal contour are unremarkable. BONES/JOINTS: Unremarkable. SOFT TISSUES: Unremarkable. RAD/Chest 1 View (Portable) IMPRESSION: No radiographic evidence of acute cardiopulmonary disease. Electronically Signed: Elvis Vargas MD at 18:25 EDT ,
[2023-05-06 18:35] VITALS: O2SAT 98
== END 2023-05-06 19:03 | disposition home or self-care (01) ==
PROVIDERS: Emergency Provider Emergency Medicine; PCP Internal Medicine; Visit Provider Emergency Medicine
DX: M79.89 Other specified soft tissue disorders (principal); J44.9 Chronic obstructive pulmonary disease, unspecified; F31.9 Bipolar disorder, unspecified; M79.605 Pain in left leg; Z87.891 Personal history of nicotine dependence; R60.0 Localized edema; M79.604 Pain in right leg; R06.02 Shortness of breath
CPT/HCPCS: 71045; 80048; 80076; 83880; 84484; 85025; 85379; 93005; 99284; A4216

== ENCOUNTER 2023-05-15 09:00 | Emergency (ER) | payer MEDICARE, MEDICAID, SELFPAY ==
[2023-05-15 09:01] VITALS: BP 112/82; PULSE 76; RESP 14; TEMP 36; O2SAT 97; BMI 39.0
--- NOTE | 2023-05-15 09:07 | EDS_ITS ---
HPI History of Present Illness Chief Complaint: Lower Extremity Injury [facility] Medical History Asthma Bipolar disorder COPD (chronic obstructive pulmonary disease) Depression Easy bruising Heartburn History of echocardiogram History of edema History of IBS History of stress test Injury of head and neck Kidney stone Leg cramps Low iron Migraine headache MVP (mitral valve prolapse) Pulmonary embolism Shortness of breath on exertion Skin cancer Smoker Stomach ulcer Wears glasses Home Medications topiramate 50 mg tablet 50 mg PO TID migraines 07/21/15 [History Last Taken 05/06/19] aripiprazole 5 mg tablet (Abilify) 5 mg PO DAILY 03/19/20 [History Last Taken 03/17/22 08:00] fluticasone furoate 100 mcg-vilanterol 25 mcg/dose inhalation powder (Breo Ellipta) 1 inh inhalation DAILY 03/17/22 [History Last Taken Unknown] furosemide 20 mg tablet 20 mg PO .SEE INSTRUCTIONS 03/17/22 [History Last Taken Unknown] hydroxyzine pamoate 50 mg capsule 50 mg PO DAILY PRN PRN Anxiety 03/17/22 [History Last Taken Unknown] albuterol sulfate 2.5 mg/3 mL (0.083 %) solution for nebulization 2.5 mg (3 mL) inhalation Q4H PRN #25 vials 04/26/22 [Rx Last Taken Unknown] albuterol sulfate 90 mcg/actuation aerosol inhaler (Ventolin HFA) 2 puff inhalation Q4H PRN PRN Wheezing ##1 04/26/22 [Rx Last Taken Unknown] esomeprazole magnesium 20 mg capsule,delayed release (Nexium) 20 mg PO DAILY #30 caps 07/08/22 [Rx Last Taken Unknown] azelastine 137 mcg (0.1 %) nasal spray aerosol 2 spray intranasal BID #30 mL 09/13/22 [Rx Last Taken Unknown] promethazine 6.25 mg-codeine 10 mg/5 mL syrup 5 ml PO 4X/DAY PRN PRN cough 7 days #140 mL 09/13/22 [Rx Last Taken Unknown] celecoxib 200 mg capsule (Celebrex) 200 mg PO BID inflamation 01/21/23 [History Last Taken Unknown] citalopram 10 mg tablet (Celexa) 30 mg PO QHS 01/21/23 [History Last Taken Unknown] duloxetine 20 mg capsule,delayed release 60 mg PO QAM depression 01/21/23 [History Last Taken Unknown] gabapentin 300 mg capsule 300 mg PO TID 01/21/23 [History Last Taken Unknown] naproxen 500 mg tablet (Naprosyn) 500 mg PO BID PRN pain #20 tabs 03/26/23 [Rx Last Taken Unknown] tizanidine 2 mg capsule 2 mg PO Q8H PRN muscle spasticity #10 caps 03/26/23 [Rx Last Taken Unknown] Allergy/AdvReac Type Severity Reaction Status Date / Time latex Allergy Itching Verified 05/15/23 09:01 Penicillins Allergy Hives Verified 05/15/23 09:01 Surgical History History of cholecystectomy History of foot surgery History of hysterectomy History of surgery on lower extremity History of ureter repair Social History household members: none Smoking Status: Former smoker Tobacco: How many years used: 50 alcohol intake: former details: 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 substance use type: does not use EXAM Physical Exam Const Vital Signs: 05/15/23 09:01 Temperature 96.8 F L Temperature Source Temporal Pulse Rate 76 Respiratory Rate 14 Blood Pressure 112/82 H Blood Pressure Mean 92 Pulse Ox 97 Oxygen Delivery Method Room Air MDM MDM MDM Narrative Medical decision making narrative: HISTORY OF PRESENT ILLNESS: 62-year-old female here with right knee pain. States she did not injure self fall. States involved last couple weeks. She further states she has appointment with orthopedics on May 29. Denies any fever, history of septic arthritis. Patient denies active cancer, being bedridden for greater than 3 days, denies unilateral leg swelling, denies any varicose veins, denies any calf tenderness, denies any edema. Denies major surgery within 12 weeks, recent paralysis, previous DVT. REVIEW OF SYSTEMS: Pertinent positives: Knee pain Pertinent negatives: Numbness, focal weakness PHYSICAL EXAM: Nursing triage notes reviewed, Vital signs reviewed Constitutional: please see mdm HENT: MMM Eyes: Pupils equal round and reactive to light, Extraocular muscles intact Neck: No stridor, no JVD, full neck ROM Lungs: Clear to auscultation, No wheezing or rales. No increased work of breathing, no conversational dyspnea, no accessory muscle use, no nasal flaring. No respiratory distress noted Heart: Regular rate and rhythm, No murmurs, No rubs and No gallops, 2+ distal pulses (radial, femoral, posterior tibial) in all extremities Abdomen: Soft, there is no tenderness, rigidity, rebound or guarding, no obvious peritoneal signs, no palpable pulsatile abdominal masses, no auscultated abdominal bruit : No CVAT Extremities: No edema, no obvious joint effusion, full range of motion in flex ion extension of the right knee, no calf tenderness. Neuro: Intact sensation L1-S1 dermatomal distributions. Intact 5/5 strength in hip flexion (T12-L3). Knee extension (L2-L4). Ankle dorsiflexion (L4-L5). Ankle plantar flexion (S1). Great toe extension (L5). 2+ patellar and Achilles DTRs. Skin: No rash or lesions noted, no crepitus or bullae noted MEDICAL DECISION MAKING: Chief Complaint: Knee pain External records reviewed: X-ray of the right knee from January 2022 shows mild patellofemoral arthrosis Factors affecting care: Chronic low back pain ALL IMAGES (IF OBTAINED) HAVE BEEN PERSONALLY REVIEWED AND INTERPRETED BY MYSELF. MDM Narrative: Patient was hemodynamically stable, afebrile, nontoxic-appearing I considered the following differential diagnosis: Bony contusion, necrotizing fasciitis, septic arthritis, fracture, dislocation, arterial occlusion, DVT, No clinical evidence to suggest arterial occlusion, necrotizing fasciitis, septic arthritis, DVT. I obtained an x-ray to rule out bony injury. X-ray showed a small joint effusion. This is suggestive of an inflammatory process in the joint likely arthritic versus soft tissue such as ligamentous injury or meni scal injury. She will need further evaluation as an outpatient with MRI and orthopedics follow-up. She was given instructions to ice, take NSAIDs and Tylenol and to follow-up with orthopedics at the already scheduled appointment. The patient and/or family, caregivers express understanding. The patient and/or family, caregivers agrees with the plan. Total critical care time today provided was at least 0 minutes. This excludes separately billable procedures. Critical care time (if documented) is secondary to the patient having high probability of clinically significant/life threatening deterioration in the patient's condition which required my urgent intervention. Shared decision making: I will have a discussion with the patient and or visitors regarding risk/benefits of further testing or admission. They will be made aware of of the risk/benefits inherent in this decision they will be given the opportunity to voice understanding. Radiography Chest X-Ray - ED: Read by ED Physician Diagnostic Testing: Clinical Impression(s) from Imaging Studies Knee X-Ray 05/15/23 09:35 IMPRESSION: Small joint effusion. Electronically Signed: Aleksandr Schmidt MD at 9:51 EDT , Knee x-ray was personally read and reviewed myself shows no evidence of acute bony injury Discharge Plan Triage Chief Complaint: Lower Extremity Injury ED Provider: Anil Prieto Dx/Rx/DC Orders Clinical Impression: Acute knee pain Instructions: ED Knee Sprain Prescriptions: No Action citalopram [Celexa] 10 mg tablet 30 mg PO QHS topiramate 50 MG tablet 50 mg PO TID aripiprazole [Abilify] 5 mg tablet 5 mg PO DAILY fluticasone furoate-vilanterol [Breo Ellipta] 100-25 mcg/dose blister with device 1 inh INHALATION DAILY Patient Comments: inhale 1 puff as directed once daily hydroxyzine pamoate 50 mg capsule 50 mg PO DAILY PRN PRN (Reason: Anxiety) Patient Comments: take 1 capsule by mouth four times a day if needed for anxiety furosemide 20 mg tablet 20 mg PO .SEE INSTRUCTIONS Patient Comments: take 1/2 to 1 tablet by mouth once daily if needed for SWELLING in feet celecoxib [Celebrex] 200 mg capsule 200 mg PO BID gabapentin 300 mg capsule 300 mg PO TID duloxetine 20 mg capsule,delayed release(DR/EC) 60 mg PO QAM albuterol sulfate 2.5 mg /3 mL (0.083 %) solution for nebulization 2.5 mg inhalation Q4H PRN Qty: 25 2RF Rx Instructions: Use q4 hours and PRN for wheezing albuterol sulfate [Ventolin HFA] 90 mcg/actuation HFA aerosol inhaler 2 puff inhalation Q4H PRN PRN (Reason: Wheezing) Qty: 1 0RF esomeprazole magnesium [Nexium] 20 mg capsule,delayed release(DR/EC) 20 mg PO DAILY Qty: 30 0RF azelastine 137 mcg (0.1 %) aerosol,spray 2 spray intranasal BID Qty: 30 0RF Rx Instructions: administer into each nostril promethazine-codeine 6.25-10 mg/5 mL syrup 5 ml PO 4X/DAY PRN PRN (Reason: cough) 7 Days Qty: 140 0RF tizanidine 2 mg capsule 2 mg PO Q8H PRN (Reason: muscle spasticity) Qty: 10 0RF naproxen [Naprosyn] 500 mg tablet 500 mg PO BID PRN (Reason: pain) Qty: 20 0RF Stand Alone Forms: ED Work / School Excuse Primary Care Provider: Jo-Ann López Referrals: Jo-Ann López MD [Primary Care Provider] - Activity Restrictions/Additional Instructions: Thank you for trusting us with your care today! Please take Tylenol (2 pills, 650 mg), ibuprofen (2 pills, 400 mg) every 6 hours as needed for pain and fever control. Please return to the emergency department if your symptoms change or worsen. Specifically develop swelling, increasing pain, unable to ambulate, you cannot flex or extend your knee, your leg becomes cool to touch, becomes red, has white-yellow discharge, develops blisters. Please follow with your orthopedic surgery and your primary care physician for further outpatient evaluation and management. Disposition Disposition: Home, Self Care Discharge Date/Time: 05/15/23 10:49
--- NOTE | 2023-05-15 09:35 | RAD_ITS ---
STUDY: X-RAY - RIGHT KNEE REASON FOR EXAM: Female, 62 years old. Chronic knee pain. No evidence of trauma. TECHNIQUE: 2 view(s) of the knee. COMPARISON: Comparison is made with prior study dated February 19, 2022. FINDINGS: Normal visualized distal femur. Normal visualized proximal tibia and fibula. Normal proximal tibiofibular articulation. Normal medial femorotibial compartment. Normal lateral femorotibial compartment. Normal patellofemoral articulation. Small joint effusion. RAD/Knee 1 or 2 Views IMPRESSION: Small joint effusion. Electronically Signed: Aleksandr Schmidt MD at 9:51 EDT ,
[2023-05-15] MEDS: Ibuprofen 200 MG Tablet 400 MG PO (09:43)
[2023-05-15] MEDS: Acetaminophen 325 MG Tablet 650 MG PO (09:44)
--- NOTE | 2023-05-15 10:48 | ED.RN ---
Patient verbalized understanding of instructions, ambulatory from dept., gait steady. Work note given per request.
== END 2023-05-15 10:49 | disposition home or self-care (01) ==
PROVIDERS: Emergency Provider Emergency Medicine; PCP Internal Medicine; Visit Provider Emergency Medicine
DX: M25.561 Pain in right knee (principal); J44.9 Chronic obstructive pulmonary disease, unspecified; M54.50 Low back pain, unspecified; Z87.891 Personal history of nicotine dependence; G89.29 Other chronic pain
CPT/HCPCS: 99281 ×2; 73560; 99283

== ENCOUNTER 2023-08-29 19:27 | Emergency (ER) | payer MEDICARE, MEDICAID, SELFPAY ==
[2023-08-29 19:28] VITALS: BP 148/73; PULSE 76; RESP 18; TEMP 36.1; O2SAT 99; BMI 41.2
--- NOTE | 2023-08-29 19:42 | CT_ITS ---
STUDY: CT ABDOMEN AND PELVIS WITHOUT CONTRAST REASON FOR EXAM: Female, 63 years old. Pain RADIATION DOSAGE (If Supplied By Facility): CTDIvol = ( 20.14 ) mGy, DLP = ( 986.38 ) mGycm TECHNIQUE: Transaxial images were obtained from the dome of the diaphragm to the symphysis pubis without oral contrast, and without intravenous contrast. Sagittal and coronal images were reconstructed. Individualized dose optimization techniques were used for this CT. COMPARISON: 07/08/2022. FINDINGS: There is atelectasis involving the right middle lobe and left lower lobe. Remainder of the lung bases are clear. The visualized portions of the heart are within normal limits. Small low-attenuation lesions within the left liver lobe, largest measuring 8 mm, likely liver cyst, stable. There is non-visualization of the gallbladder, which may be secondary to either contraction or a prior cholecystectomy. Normal spleen. Normal pancreas. Normal bilateral adrenal glands. Normal right kidney. Mild left hydronephrosis and hydroureter due to a distal left ureteral stone seen at or just beyond the UV junction measuring 3 mm. Normal visualized stomach. Normal small intestine. Colon is incompletely distended with diffuse mild thickening of the wall concerning for colitis. The appendix is visualized and appears normal. Normal abdominal aorta. Normal inferior vena cava. Normal retroperitoneum. Urinary bladder is incompletely distended otherwise unremarkable. There is absence of the uterus consistent with a prior hysterectomy. Tiny fat-containing umbilical hernia. Second tiny fat-containing supraumbilical hernia. There are diffuse degenerative changes of the visualized lumbar spine. CT/Abdomen/Pelvis without Cont IMPRESSION: Mild left hydronephrosis due to a 3 mm stone at or just beyond the left UV junction. Possible mild diffuse colitis. No acute appendicitis or bowel obstruction. Tiny liver cysts, largest measuring 8 mm with nonvisualized gallbladder, otherwise unremarkable abdominal viscera. Electronically Signed: Soraya Hutchinson MD at 21:49 EDT ,
--- NOTE | 2023-08-29 19:43 | ED.VIS.GI ---
HPI HPI - GI History of Present Illness Chief Complaint: Abd Pain Detail of Chief Complaint: Abdominal pain Informant: patient Narrative Narrative: Patient presents to the emergency department with left-sided abdominal pain that started this morning. Patient states it came on gradually. Currently she rates it a 10 out of 10. She had nausea with it but no vomiting. She denies fever. She denies diarrhea. She denies blood in her stool or black tarry stool. She does have prior history of kidney stone but cannot remember what that felt like. Patient tells me she always has some blood in her urine that is chronic. Patient has had prior cholecystectomy and prior hysterectomy. [facility] Medical History Asthma Bipolar disorder COPD (chronic obstructive pulmonary disease) Depression Easy bruising Heartburn History of echocardiogram History of edema History of IBS History of stress test Injury of head and neck Kidney stone Leg cramps Low iron Migraine headache MVP (mitral valve prolapse) Pulmonary embolism Shortness of breath on exertion Skin cancer Smoker Stomach ulcer Wears glasses Home Medications topiramate 50 mg tablet 50 mg PO TID migraines 07/21/15 [History Last Taken 05/06/19] aripiprazole 5 mg tablet (Abilify) 5 mg PO DAILY 03/19/20 [History Last Taken 03/17/22 08:00] furosemide 20 mg tablet 20 mg PO .SEE INSTRUCTIONS 03/17/22 [History Last Taken Unknown] hydroxyzine pamoate 50 mg capsule 50 mg PO DAILY PRN PRN Anxiety 03/17/22 [History Last Taken Unknown] albuterol sulfate 2.5 mg/3 mL (0.083 %) solution for nebulization 2.5 mg (3 mL) inhalation Q4H PRN #25 vials 04/26/22 [Rx Last Taken Unknown] albuterol sulfate 90 mcg/actuation aerosol inhaler (Ventolin HFA) 2 puff inhalation Q4H PRN PRN Wheezing ##1 04/26/22 [Rx Last Taken Unknown] esomeprazole magnesium 20 mg capsule,delayed release (Nexium) 20 mg PO DAILY #30 caps 07/08/22 [Rx Last Taken Unknown] azelastine 137 mcg (0.1 %) nasal spray aerosol 2 spray intranasal BID #30 mL 09/13/22 [Rx Last Taken Unknown] promethazine 6.25 mg-codeine 10 mg/5 mL syrup 5 ml PO 4X/DAY PRN PRN cough 7 days #140 mL 09/13/22 [Rx Last Taken Unknown] celecoxib 200 mg capsule (Celebrex) 200 mg PO BID inflamation 01/21/23 [History Last Taken Unknown] citalopram 10 mg tablet (Celexa) 30 mg PO QHS 01/21/23 [History Last Taken Unknown] duloxetine 20 mg capsule,delayed release 60 mg PO QAM depression 01/21/23 [History Last Taken Unknown] gabapentin 300 mg capsule 300 mg PO TID 01/21/23 [History Last Taken Unknown] naproxen 500 mg tablet (Naprosyn) 500 mg PO BID PRN pain #20 tabs 03/26/23 [Rx Last Taken Unknown] tizanidine 2 mg capsule 2 mg PO Q8H PRN muscle spasticity #10 caps 03/26/23 [Rx Last Taken Unknown] albuterol sulfate 90 mcg/actuation aerosol inhaler 2 puff inhalation Q4H PRN shortness of breath or wheezing #8.5 grams 06/30/23 [Rx Last Taken Unknown] fluticasone furoate 100 mcg-vilanterol 25 mcg/dose inhalation powder (Breo Ellipta) 1 inh inhalation DAILY #60 ea 06/30/23 [Rx Last Taken Unknown] hydrocodone-acetaminophen 5-325mg 5mg-325mg 1 tab PO Q4H PRN PRN Pain 2 days #10 TABLETS 08/29/23 [Rx Last Taken Unknown] naproxen 500 mg tablet 500 mg PO BID #14 tabs 08/29/23 [Rx Last Taken Unknown] Allergy/AdvReac Type Severity Reaction Status Date / Time latex Allergy Itching Verified 08/29/23 19:28 Penicillins Allergy Hives Verified 08/29/23 19:28 Surgical History History of cholecystectomy History of foot surgery History of hysterectomy History of surgery on lower extremity History of ureter repair Social History (Updated 06/30/23 @ 14:20 by Anayeli Sanchez) household members: none Smoking Status: Former smoker Tobacco: How many years used: 50 alcohol intake: former details: 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 substance use type: does not use ROS ROS ED Review of Systems ROS Unobtainable: other Constitutional Constitutional ED: Reports lethargy; Denies chills, fever(s), sweats or weight loss Eyes Eyes: Denies blurry vision, change in vision or diplopia ENT ENT ED: Denies rhinorrhea or sore throat Cardiovascular Cardiovascular: Denies chest pain, orthopnea or racing heartbeat Respiratory/Chest Respiratory/Chest: Denies cough, dyspnea, dyspnea on exertion, orthopnea or sputum Gastrointestinal Gastrointestinal: Reports abdominal pain and nausea; Denies diarrhea or vomiting Genitourinary Genitourinary ED: Reports hematuria; Denies dysuria or urinary frequency Musculoskeletal Musculoskeletal: Denies arthralgias, back pain, myalgias or neck pain Integumentary Denies abscess, Abrasions or rash Neurologic Neurologic: Denies headache(s) or weakness Psychiatric Psychiatric: Denies anxiety, depression or suicidal thoughts Endocrine Endocrinology: Denies polydipsia, polyphagia or polyuria Hematologic/Lymphatic Hematologic/Lymphatic: Denies easy bleeding, easy bruising or lymphadenopathy Allergic/Immunologic Allergic/Immunologic ED: Denies mouth swelling, tongue swelling or urticaria EXAM Physical Exam Const Vital Signs: 08/29/23 19:28 Temperature 97 F L Temperature Source Temporal Pulse Rate 76 Respiratory Rate 18 Blood Pressure 148/73 H Blood Pressure Mean 98 Pulse Ox 99 Positive well nourished and well developed General Appearance ED: well developed and NAD HEENT Reports TM's clear and moist mucous membranes normocephalic and atraumatic; Negative for trauma or tenderness Tympanic Membrane ED: Yes TM's clear Eyes PERRL and EOMs intact bilaterally General Eye ED: Negative for pale conjunctiva or scleral icterus Neck no lymphadenopathy, supple and no JVD General: Negative for tenderness Chest Wall inspection of chest normal and palpation of chest normal Chest: Negative for tenderness Resp normal respiratory effort and clear to auscultation bilaterally Effort and Inspection: Negative for respiratory distress or pain with movement Auscultation: Negative for rhonchi, wheezes or diminished lung sounds Cardio regular rate, regular rhythm, S1 normal heart sound, S2 normal heart sound and no murmurs Peripheral Pulses: pulses 2+ throughout GI normal to inspection, nondistended, normoactive bowel sounds, soft to palpation, non-distended and no masses GI Narrative: Tenderness palpation over left lower quadrant with some guarding. There is no rebound, rigidity, or penial signs. No mass palpated. Back/Spine no CVA tenderness and no thoracic nor lumbar tenderness Extremity normal to inspection General Extremety ED: Negative for edema General Extremity: Negative for edema Neuro oriented x3, CN's II-XII intact bilaterally, no sensory deficits noted and gait normal Sensorium / Orientation: awake, alert, oriented to person, oriented to place and oriented to time Motor Exam: strength 5/5 throughout and strength abnormal Psych mental status grossly normal Skin no rashes or lesions noted and no wounds MDM MDM MDM Narrative Medical decision making narrative: Patient presents with left-sided abdominal pain started this morning. Remote history of kidney stones. In the differential would be kidney stone versus UTI versus diverticulitis or other intra-abdominal process. IV line established on arrival. Patient was medicated with Toradol, morphine, and Zofran. Patient initially had good pain relief but then the pain started come back and she was given 4 more milligrams of morphine. CBC with differential white count of 10.9 with hemoglobin of 12 and platelet count of 266. Chemistries unremarkable. Lactate normal at 1.1. Urinalysis was normal. CT scan of the abdomen pelvis without contrast obtained showed left-sided hydroureter with 3 mm calcification at the left UVJ. Patient also may have mild diffuse colitis per radiology however clinically I do not feel patient has colitis. I suspect this pain that she is having is all related to her urolithiasis. Patient will be discharged home with prescription for [place]. Patient will be given urine strainers. Patient given prescription for naproxen. She is advised return if worsening pain, fever, vomiting, or condition worsening way. Lab Data Attestation: I reviewed the patient's lab results. Labs: Laboratory Results - last 24 hr 08/29/23 08/29/23 19:54 20:00 WBC 10.9 RBC 4.20 Hgb 12.3 Hct 39.9 MCV 95.0 MCH 29.3 MCHC 30.8 L RDW Std Deviation 48.4 H RDW Coeff of Bruna 13.9 Plt Count 266 MPV 10.1 Immature Gran % (Auto) 0.300 Neut % (Auto) 78.5 H Lymph % (Auto) 16.2 L [place] % (Auto) 4.0 Eos % (Auto) 0.5 Baso % (Auto) 0.5 Absolute Neuts (auto) 8.6 H Absolute Lymphs (auto) 1.77 Nucleated RBC % 0 Sodium 143 Potassium 3.9 Chloride 113 H Carbon Dioxide 25.0 Anion Gap 5 BUN 21 H Creatinine 0.98 Estim Creat Clear Calc 46.47 Est GFR (MDRD) Af Amer 74 Est GFR (MDRD) Non-Af 61 BUN/Creatinine Ratio 21.4 H Glucose 121 H Lactic Acid 1.1 Calcium 8.7 Lipase 15 Urine Color Yellow Urine Clarity Cloudy Urine pH 7.0 Ur Specific [place] 1.015 Urine Protein 15 H Urine Glucose (UA) Normal Urine Ketones Negative Urine Occult Blood 150 H Urine Nitrite Negative Urine Bilirubin Negative Urine Urobilinogen Normal Ur Leukocyte Esterase 25 H Urine RBC 0 SEEN Urine WBC 0 SEEN Ur Squamous Epith Cells 0-5 SEEN Amorphous Sediment 2+ Urine Bacteria 0 SEEN Urine Mucus 0 SEEN Radiography Diagnostic Testing: Clinical Impression(s) from Imaging Studies Abdomen/Pelvis CT 08/29/23 19:42 IMPRESSION: Mild left hydronephrosis due to a 3 mm stone at or just beyond the left UV junction. Possible mild diffuse colitis. No acute appendicitis or bowel obstruction. Tiny liver cysts, largest measuring 8 mm with nonvisualized gallbladder, otherwise unremarkable abdominal viscera. Electronically Signed: Soraya Hutchinson MD at 21:49 EDT , Discharge Plan Triage Chief Complaint: Abd Pain ED Provider: Ariel Vogt Dx/Rx/DC Orders Clinical Impression: Urolithiasis Instructions: ED Kidney Stone w/ Colic Prescriptions: New hydrocodone-acetaminophen [hydrocodone-acetaminophen] 5-325 mg tablet 1 tab PO Q4H PRN PRN (Reason: Pain) 2 Days Qty: 10 0RF naproxen 500 mg tablet 500 mg PO BID Qty: 14 0RF No Action citalopram [Celexa] 10 mg tablet 30 mg PO QHS albuterol sulfate 90 mcg/actuation HFA aerosol inhaler 2 puff inhalation Q4H PRN (Reason: shortness of breath or wheezing) Qty: 8.5 3RF Rx Instructions: administer with spacer fluticasone furoate-vilanterol [Breo Ellipta] 100-25 mcg/dose blister with device 1 inh INHALATION DAILY Qty: 60 6RF topiramate 50 MG tablet 50 mg PO TID aripiprazole [Abilify] 5 mg tablet 5 mg PO DAILY hydroxyzine pamoate 50 mg capsule 50 mg PO DAILY PRN PRN (Reason: Anxiety) Patient Comments: take 1 capsule by mouth four times a day if needed for anxiety furosemide 20 mg tablet 20 mg PO .SEE INSTRUCTIONS Patient Comments: take 1/2 to 1 tablet by mouth once daily if needed for SWELLING in feet celecoxib [Celebrex] 200 mg capsule 200 mg PO BID gabapentin 300 mg capsule 300 mg PO TID duloxetine 20 mg capsule,delayed release(DR/EC) 60 mg PO QAM albuterol sulfate 2.5 mg /3 mL (0.083 %) solution for nebulization 2.5 mg inhalation Q4H PRN Qty: 25 2RF Rx Instructions: Use q4 hours and PRN for wheezing albuterol sulfate [Ventolin HFA] 90 mcg/actuation HFA aerosol inhaler 2 puff inhalation Q4H PRN PRN (Reason: Wheezing) Qty: 1 0RF esomeprazole magnesium [Nexium] 20 mg capsule,delayed release(DR/EC) 20 mg PO DAILY Qty: 30 0RF azelastine 137 mcg (0.1 %) aerosol,spray 2 spray intranasal BID Qty: 30 0RF Rx Instructions: administer into each nostril promethazine-codeine 6.25-10 mg/5 mL syrup 5 ml PO 4X/DAY PRN PRN (Reason: cough) 7 Days Qty: 140 0RF tizanidine 2 mg capsule 2 mg PO Q8H PRN (Reason: muscle spasticity) Qty: 10 0RF naproxen [Naprosyn] 500 mg tablet 500 mg PO BID PRN (Reason: pain) Qty: 20 0RF Primary Care Provider: Jo-Ann López Referrals: Nimo Esteban MD [Med Staff - Active Staff] - 3-5 Days Jo-Ann López MD [Primary Care Provider] - Disposition Disposition: Home, Self Care
[2023-08-29] MEDS: Ketorolac 15 MG/ML Vial IV (20:01)
[2023-08-29] MEDS: Ondansetron 4 MG/2 ML Vial IV (20:01)
[2023-08-29] MEDS: Morphine 4 MG/ML Syringe IV ×2 (20:01→21:41)
[2023-08-29 20:06] LABS: Absolute Lymphocyte Count 1.77 X10^3/uL (0.83-4.51); Absolute Neutrophil Count 8.6 X10^3/uL (2.0-7.7); Basophil# 0.06 X10^3/uL; Basophil% 0.5 % (0-1); Eosinophil# 0.06 X10^3/uL; Eosinophils% 0.5 % (0-5); Hematocrit 39.9 % (37-47); Hemoglobin 12.3 g/dL (12.0-15.0); Lymphocyte # 1.77 X10^3/ul (0.83-4.51); Lymphocyte % 16.2 % (19-41); Mean Corp Hgb Conc 30.8 g/dL (32-36); Mean Corpuscular Hgb 29.3 pg (27.0-32.0); Mean Platelet Vol. 10.1 fl (6.2-12.0); Monocyte# 0.44 X10^3/uL; NRBC Flagged by Analyzer 0 % (0-5); Neutrophil # 8.55 X10^3/uL (2.7-7.7); Neutrophil % 78.5 % (47-70); Platelet Count 266 K/mm3 (150-450); RBC Distribution Width CV 13.9 % (11.6-14.6); RBC Distribution Width SD 48.4 fl (35.1-43.9); White Blood Count 10.9 K/mm3 (4.4-11.0)
[2023-08-29 20:11] LABS: Bacteria 0 SEEN /hpf (None Seen); Mucous, Urine 0 SEEN /hpf (<or=2+); Red Blood Cells-Urine 0 SEEN /hpf (0-5); White Blood Cells 0 SEEN /hpf (0-5)
[2023-08-29 20:12] LABS: Color, Urine Yellow (Yellow); Glucose, Dipstick Normal (Normal); Ketone-Dipstick Negative (Negative); Leukocyte Esterase-Dipstick 25 /ul (Negative); Nitrite-Dipstick Negative (Negative); Occult Blood-Urine 150 /ul (Negative); Protein-Dipstick 15 mg/dl (Negative); Specific Gravity, Urine 1.015 (1.002-1.030); Urine Bilirubin Dipstick Negative (Negative); Urine Clarity Cloudy (Clear); Urine Urobilinogen Normal (Normal)
[2023-08-29] MEDS: 0.9% Normal Saline (1000mL) 1,000 ML 125 ML IV (20:18)
[2023-08-29 20:20] LABS: Anion Gap 5 (5-15); BUN 21 mg/dL (7-18); BUN/Creat Ratio 21.4 RATIO (10-20); Calcium,Total 8.7 mg/dL (8.5-10.1); Chloride 113 mmol/L (98-107); Creatinine, Serum 0.98 mg/dL (0.55-1.02); EST Glomerular Filtration Rate 61 mL/min (>60); Est Glom Filt Rate - Afr Amer 74 mL/min (>60); Estimated Creatinine Clearance 46.47 ml/min; Glucose 121 mg/dL (74-106); Potassium 3.9 mmol/L (3.5-5.1); Sodium Level 143 mmol/L (136-145)
[2023-08-29 20:22] LABS: Squamous Epithelial Cells - UA 0-5 SEEN /hpf (5-10)
[2023-08-29 20:23] LABS: Amorphous Sediment 2+
[2023-08-29 20:30] LABS: Lactic Acid 1.1 mmol/L (0.4-1.9)
[2023-08-29 21:04] LABS: Lipase 15 U/L (13-75)
[2023-08-29 22:44] VITALS: RESP 16
== END 2023-08-29 22:44 | disposition home or self-care (01) ==
PROVIDERS: Emergency Provider Emergency Medicine; PCP Internal Medicine; Visit Provider Emergency Medicine
DX: N13.2 Hydronephrosis with renal and ureteral calculous obstruction (principal); J44.9 Chronic obstructive pulmonary disease, unspecified; N13.4 Hydroureter; Z87.891 Personal history of nicotine dependence; Z87.442 Personal history of urinary calculi; Z90.49 Acquired absence of other specified parts of digestive tract; R31.9 Hematuria, unspecified
CPT/HCPCS: 74176; 80048; 81001; 83605; 83690; 85025; 96361; 96374; 96375; 96376; 99282; J7030; A4216; J2405

== ENCOUNTER 2024-04-27 11:35 | Emergency (ER) | payer MEDICARE, MEDICAID, SELFPAY ==
[2024-04-27 11:35] VITALS: BP 107/87; PULSE 90; RESP 19; TEMP 36.2; O2SAT 94; BMI 37.4
--- NOTE | 2024-04-27 13:09 | CT_ITS ---
STUDY: CT BRAIN WITHOUT CONTRAST REASON FOR EXAM: Female, 63 years old. Intermittent dizziness and lightheadedness. RADIATION DOSAGE (If Supplied By Facility): CTDIvol = ( 47.06 ) mGy, DLP = ( 872.68 ) mGycm TECHNIQUE: Transaxial CT imaging of the brain was performed without administration of intravenous contrast material. Individualized dose optimization techniques were used for this CT. COMPARISON: No relevant priors. FINDINGS: Normal soft tissue structures. Normal calvarium. There is mild cerebral atrophy with widening of the extra-axial spaces and ventricular dilatation. Normal white matter tracts of the cerebral hemispheres. Normal basal ganglia and thalami. Normal brainstem. Normal cerebellum. There is no intracranial hemorrhage. There are no findings of an acute ischemic infarction. Normal visualized paranasal sinuses. CT/Brain/Head without Contrast IMPRESSION: Chronic involutional changes of the brain. Electronically Signed: Aleksandr Schmidt MD at 14:28 EDT ,
--- NOTE | 2024-04-27 13:09 | EX.ED.DYSGE1 ---
HPI History of Present Illness Chief Complaint: Dizziness Informant: patient Onset/Context/Timing Onset: Weeks (1.5) Context: Sudden Onset Timing: Intermittent Quality: Moving sensation Location: Generalized Worsened by: Moving her head Relieved by: Nothing Narrative Narrative: Patient presents with dizziness and lightheadedness that has been intermittent over the last 1-1/2 weeks. Patient states it began rather suddenly. Patient states it last for several minutes when it comes on. Patient states it feels like things are moving around her. Patient states it is worse with moving her head. Patient states this all started while she was camping. Patient admits to some sweats but denies any fevers or chills. Patient admits to some blurry vision. Patient also admits to a mild headache. [facility] Medical History Wears glasses Bipolar disorder Low iron Easy bruising Migraine headache Injury of head and neck History of IBS Heartburn Smoker Shortness of breath on exertion Leg cramps History of edema History of echocardiogram History of stress test Depression Asthma Stomach ulcer MVP (mitral valve prolapse) Skin cancer COPD (chronic obstructive pulmonary disease) Pulmonary embolism Kidney stone Home Medications ?Medication ?Instructions ?Recorded ?Last Taken ?Type topiramate 50 mg tablet 50 mg PO TID migraines 07/21/15 05/06/19 History aripiprazole 5 mg tablet (Abilify) 5 mg PO DAILY 03/19/20 03/17/22 08:00 History furosemide 20 mg tablet 20 mg PO .SEE INSTRUCTIONS 03/17/22 Unknown History hydroxyzine pamoate 50 mg capsule 50 mg PO DAILY PRN PRN Anxiety 03/17/22 Unknown History albuterol sulfate 2.5 mg/3 mL 2.5 mg (3 mL) inhalation Q4H PRN 04/26/22 Unknown Rx (0.083 %) solution for nebulization #25 vials azelastine 137 mcg (0.1 %) nasal 2 spray intranasal BID #30 mL 09/13/22 Unknown Rx spray celecoxib 200 mg capsule (Celebrex) 200 mg PO BID inflamation 01/21/23 Unknown History citalopram 10 mg tablet (Celexa) 30 mg PO QHS 01/21/23 Unknown History gabapentin 300 mg capsule 300 mg PO TID 01/21/23 Unknown History tizanidine 2 mg capsule 2 mg PO Q8H PRN muscle spasticity 03/26/23 Unknown Rx #10 caps albuterol sulfate 90 mcg/actuation 2 puff inhalation Q4H PRN 06/30/23 Unknown Rx aerosol inhaler shortness of breath or wheezing #8.5 grams budesonide-formoterol HFA 160 2 puff inhalation BID #1 ea 10/13/23 Unknown Rx mcg-4.5 mcg/actuation aerosol inhaler (Symbicort) duloxetine 20 mg capsule,delayed 60 mg PO QAM depression 10/19/23 Unknown History release duloxetine 30 mg capsule,delayed 30 mg PO HS 10/19/23 Unknown History release fluticasone propionate 50 2 spray intranasal DAILY 10/19/23 Unknown History mcg/actuation nasal spray,suspension meclizine 25 mg tablet 25 mg PO 4X/DAY PRN PRN Dizziness 04/27/24 Unknown Rx #20 tabs Allergy/AdvReac Type Severity Reaction Status Date / Time latex Allergy Itching Verified 10/19/23 08:44 Penicillins Allergy Hives Verified 10/19/23 08:44 Surgical History History of surgery on lower extremity History of foot surgery History of hysterectomy History of cholecystectomy History of ureter repair Social History household members: none Smoking Status: Former smoker Tobacco: How many years used: 50 alcohol intake: former details: 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 substance use type: does not use ROS ROS ED Constitutional Constitutional ED: Reports sweats; Denies chills or fever(s) Eyes Eyes: Reports blurry vision; Denies diplopia ENT ENT ED: Denies rhinorrhea or sore throat Cardiovascular Cardiovascular: Reports palpitations; Denies chest pain Respiratory/Chest Respiratory/Chest: Denies cough or dyspnea Gastrointestinal Gastrointestinal: Denies nausea or vomiting Genitourinary Genitourinary ED: Denies dysuria or hematuria Musculoskeletal Musculoskeletal: Reports neck pain; Denies back pain Integumentary Denies abscess or rash Neurologic Neurologic: Reports headache(s); Denies weakness Allergic/Immunologic Allergic/Immunologic ED: Denies mouth swelling or urticaria EXAM Physical Exam Const Vital Signs: 04/27/24 11:35 04/27/24 13:28 04/27/24 13:35 Temperature 97.2 F L Temperature Source Temporal Pulse Rate 90 71 Pulse Rate [Lying] 66 Pulse Rate [Sitting (for 1 minute prior to obtaining)] 72 Pulse Rate [Standing (for 1 minute prior to obtaining)] 75 Respiratory Rate 19 H 16 Blood Pressure 107/87 H 147/81 H Blood Pressure [Lying] 133/61 H Blood Pressure [Sitting (for 1 minute prior to obtaining)] 139/86 H Blood Pressure [Standing (for 1 minute prior to obtaining)] 147/91 H Blood Pressure Mean 93 103 Blood Pressure Mean [Lying] 85 Blood Pressure Mean [Sitting (for 1 minute prior to obtaining)] 103 Blood Pressure Mean [Standing (for 1 minute prior to obtaining)] 109 Pulse Ox 94 100 Oxygen Delivery Method Room Air Room Air Positive well nourished and well developed General Appearance ED: well developed and NAD HEENT Reports moist mucous membranes Eyes PERRL and EOMs intact bilaterally Eyes Narrative: There is mild nystagmus with right lateral gaze. Neck supple and no JVD Resp normal respiratory effort and clear to auscultation bilaterally Cardio regular rate and regular rhythm GI non-tender and non-distended Palpation: soft Neuro oriented x3, CN's II-XII intact bilaterally and no sensory deficits noted Sensorium / Orientation: alert Motor Exam: strength 5/5 throughout Psych mental status grossly normal MDM MDM MDM Narrative Medical decision making narrative: Differential diagnosis includes vertigo, labyrinthitis, stroke, electrolyte abnormality, urinary tract infection, and viral illness. CT scan of the brain will be obtained to assess for stroke and intracranial bleeding. CBC will be obtained to assess for leukocytosis and anemia. Basic metabolic profile will be obtained to assess for electrolyte abnormality and renal function. Urinalysis will be obtained to assess for urinary tract infection and hematuria. Lab Data Attestation: I reviewed the patient's lab results. Lab results narrative: CBC was reviewed and was within normal limits. Basic metabolic profile was reviewed and was within normal limits. Urinalysis was reviewed. There is no evidence of urinary tract infection or hematuria. Labs: Laboratory Results - last 24 hr 04/27/24 04/27/24 13:15 13:42 WBC 6.2 RBC 4.06 L Hgb 11.9 L Hct 37.9 MCV 93.3 MCH 29.3 MCHC 31.4 L RDW Std Deviation 44.6 H RDW Coeff of Bruna 13.2 Plt Count 260 MPV 9.7 Immature Gran % (Auto) 0.300 Neut % (Auto) 54.5 Lymph % (Auto) 37.6 [place] % (Auto) 4.2 Eos % (Auto) 2.6 Baso % (Auto) 0.8 Absolute Neuts (auto) 3.4 Absolute Lymphs (auto) 2.33 Nucleated RBC % 0 Sodium 140 Potassium 3.8 Chloride 111 H Carbon Dioxide 26.0 Anion Gap 3 L BUN 14 Creatinine 0.67 Estim Creat Clear Calc 91.17 Est GFR (MDRD) Af Amer 114 Est GFR (MDRD) Non-Af 94 BUN/Creatinine Ratio 20.9 H Glucose 88 Calcium 9.3 Urine Color Yellow Urine Clarity Sl. Cloudy Urine pH 7.0 Ur Specific [place] 1.005 Urine Protein Negative Urine Glucose (UA) Normal Urine Ketones Negative Urine Occult Blood 10 H Urine Nitrite Negative Urine Bilirubin Negative Urine Urobilinogen Normal Ur Leukocyte Esterase Negative Urine RBC 0-5 SEEN Urine WBC 0 SEEN Ur Squamous Epith Cells 0 SEEN Urine Bacteria 0 SEEN Urine Mucus 0 SEEN Radiography Diagnostic Testing: Clinical Impression(s) from Imaging Studies Brain CT 04/27/24 13:09 IMPRESSION: Chronic involutional changes of the brain. Electronically Signed: Aleksandr Schmidt MD at 14:28 EDT , CT scan of the brain was obtained. There is no acute intracranial abnormality. There are chronic changes noted. This was interpreted by the radiologist and was also independently reviewed by myself. Treatment and Re-Evaluation :: Patient was given a dose of meclizine here. Patient was feeling better on reevaluation. Patient was able to ambulate without difficulty. Patient was advised of her findings. Patient was advised that this is most likely a peripheral vertigo. Patient was given a prescription for meclizine. Patient was instructed to take these as needed. Patient was instructed to follow-up with her primary care physician in 5 to 7 days. Patient was instructed to return if worse in any way. Patient understood and was agreeable with the plan. All questions were answered. Discharge Plan Triage Chief Complaint: Dizziness ED Provider: Israel Harp Dx/Rx/DC Orders Clinical Impression: Peripheral vertigo, Mitral valve prolapse, recovered alcoholic Instructions: ED Vertigo, Unspecified Prescriptions: New meclizine 25 mg tablet 25 mg PO 4X/DAY PRN PRN (Reason: Dizziness) Qty: 20 0RF No Action citalopram [Celexa] 10 mg tablet 30 mg PO QHS albuterol sulfate 90 mcg/actuation HFA aerosol inhaler 2 puff inhalation Q4H PRN (Reason: shortness of breath or wheezing) Qty: 8.5 3RF Rx Instructions: administer with spacer fluticasone propionate 50 mcg/actuation spray,suspension 2 spray intranasal DAILY Patient Comments: USE 2 SPRAYS IN EACH NOSTRIL ONCE DAILY. RINSE MOUTH AFTER USE. duloxetine 30 mg capsule,delayed release(DR/EC) 30 mg PO HS Patient Comments: take 1 capsule by mouth once daily at bedtime Rx Instructions: 60 in AM + 30 in Evening topiramate 50 MG tablet 50 mg PO TID aripiprazole [Abilify] 5 mg tablet 5 mg PO DAILY hydroxyzine pamoate 50 mg capsule 50 mg PO DAILY PRN PRN (Reason: Anxiety) Patient Comments: take 1 capsule by mouth four times a day if needed for anxiety furosemide 20 mg tablet 20 mg PO .SEE INSTRUCTIONS Patient Comments: take 1/2 to 1 tablet by mouth once daily if needed for SWELLING in feet celecoxib [Celebrex] 200 mg capsule 200 mg PO BID gabapentin 300 mg capsule 300 mg PO TID duloxetine 20 mg capsule,delayed release(DR/EC) 60 mg PO QAM Rx Instructions: 60 in AM + 30 in Evening albuterol sulfate 2.5 mg /3 mL (0.083 %) solution for nebulization 2.5 mg inhalation Q4H PRN Qty: 25 2RF Rx Instructions: Use q4 hours and PRN for wheezing azelastine 137 mcg (0.1 %) aerosol,spray 2 spray intranasal BID Qty: 30 0RF Rx Instructions: administer into each nostril tizanidine 2 mg capsule 2 mg PO Q8H PRN (Reason: muscle spasticity) Qty: 10 0RF budesonide-formoterol [Symbicort] 160-4.5 mcg/actuation HFA aerosol inhaler 2 puff inhalation BID Qty: 1 3RF Rx Instructions: administer with spacer, rinse mouth after each use Stand Alone Forms: ED Work / School Excuse Primary Care Provider: Jo-Ann López Referrals: Jo-Ann López MD [Primary Care Provider] - Print Language: [place] Disposition Disposition: Home, Self Care
[2024-04-27] MEDS: Meclizine HCl 25 MG Tablet PO (13:20)
[2024-04-27] MEDS: 0.9% Normal Saline (1000mL) 1,000 ML 1000 ML IV (13:20)
[2024-04-27 13:28] VITALS: BP 133/61; BP 139/86; BP 147/91; PULSE 66; PULSE 72; PULSE 75
[2024-04-27 13:30] LABS: Absolute Lymphocyte Count 2.33 X10^3/uL (0.83-4.51); Absolute Neutrophil Count 3.4 X10^3/uL (2.0-7.7); Basophil# 0.05 X10^3/uL; Basophil% 0.8 % (0-1); Eosinophil# 0.16 X10^3/uL; Eosinophils% 2.6 % (0-5); Hematocrit 37.9 % (37-47); Hemoglobin 11.9 g/dL (12.0-15.0); Lymphocyte # 2.33 X10^3/ul (0.83-4.51); Lymphocyte % 37.6 % (19-41); Mean Corp Hgb Conc 31.4 g/dL (32-36); Mean Corpuscular Hgb 29.3 pg (27.0-32.0); Mean Corpuscular Volume 93.3 fL (81-99); Mean Platelet Vol. 9.7 fl (6.2-12.0); Monocyte# 0.26 X10^3/uL; Monocyte% 4.2 % (0-10); NRBC Flagged by Analyzer 0 % (0-5); Neutrophil # 3.37 X10^3/uL (2.7-7.7); Neutrophil % 54.5 % (47-70); Platelet Count 260 K/mm3 (150-450); RBC Distribution Width CV 13.2 % (11.6-14.6); RBC Distribution Width SD 44.6 fl (35.1-43.9); Red Blood Count 4.06 M/mm3 (4.2-5.4); White Blood Count 6.2 K/mm3 (4.4-11.0)
[2024-04-27 13:35] VITALS: BP 147/81; PULSE 71; RESP 16; O2SAT 100
[2024-04-27 13:39] LABS: Anion Gap 3 (5-15); BUN 14 mg/dL (7-18); BUN/Creat Ratio 20.9 RATIO (10-20); Calcium,Total 9.3 mg/dL (8.5-10.1); Chloride 111 mmol/L (98-107); Creatinine, Serum 0.67 mg/dL (0.55-1.02); EST Glomerular Filtration Rate 94 mL/min (>60); Est Glom Filt Rate - Afr Amer 114 mL/min (>60); Estimated Creatinine Clearance 91.17 ml/min; Glucose 88 mg/dL (74-106); Potassium 3.8 mmol/L (3.5-5.1); Sodium Level 140 mmol/L (136-145)
[2024-04-27 13:59] LABS: Bacteria 0 SEEN /hpf (None Seen); Mucous, Urine 0 SEEN /hpf (<or=2+); Squamous Epithelial Cells - UA 0 SEEN /hpf (5-10); White Blood Cells 0 SEEN /hpf (0-5)
[2024-04-27 14:03] LABS: Color, Urine Yellow (Yellow); Glucose, Dipstick Normal (Normal); Ketone-Dipstick Negative (Negative); Leukocyte Esterase-Dipstick Negative /ul (Negative); Nitrite-Dipstick Negative (Negative); Occult Blood-Urine 10 /ul (Negative); Protein-Dipstick Negative (Negative); Specific Gravity, Urine 1.005 (1.002-1.030); Urine Bilirubin Dipstick Negative (Negative); Urine Clarity Sl. Cloudy (Clear); Urine Urobilinogen Normal (Normal)
[2024-04-27 14:13] LABS: Red Blood Cells-Urine 0-5 SEEN /hpf (0-5)
[2024-04-27 15:00] VITALS: BP 127/74; PULSE 82; RESP 16; O2SAT 98
[2024-04-27 15:17] VITALS: BP 127/74; PULSE 82; RESP 16; TEMP 36.5; O2SAT 98
== END 2024-04-27 15:17 | disposition home or self-care (01) ==
PROVIDERS: Emergency Provider Emergency Medicine; PCP Internal Medicine; Visit Provider Emergency Medicine
DX: H81.399 Other peripheral vertigo, unspecified ear (principal); J44.9 Chronic obstructive pulmonary disease, unspecified; F10.21 Alcohol dependence, in remission; R51.9 Headache, unspecified; Z87.891 Personal history of nicotine dependence; I34.1 Nonrheumatic mitral (valve) prolapse
CPT/HCPCS: 70450; 80048; 81001; 85025; 96361; 99285; J7030; A4216

== ENCOUNTER 2024-07-15 10:28 | Emergency (ER) | payer MEDICARE, MEDICAID, SELFPAY ==
[2024-07-15] VITALS (7 sets, daily range): BP systolic 111–114; BP diastolic 68–78; PULSE 80–102; RESP 16–20; TEMP 36.6; O2SAT 96–99; BMI 36.6
--- NOTE | 2024-07-15 10:45 | EKG12_ITS ---
Test Reason : SOB Blood Pressure : / mmHG Vent. Rate : 080 BPM Atrial Rate : 080 BPM P-R Int : 120 ms QRS Dur : 082 ms QT Int : 380 ms P-R-T Axes : 048 002 042 degrees QTc Int : 438 ms Normal sinus rhythm Low voltage QRS Borderline ECG Confirmed by Job Reed ([id number]), brands editor YOU MUSTAFA ([id number]) on 07/18/2024 11:04:16 AM Referred By: Confirmed By:Job Reed
--- NOTE | 2024-07-15 10:50 | CT_ITS ---
STUDY: CTA CHEST REASON FOR EXAM: Female, 64 years old. SOB, hx of blood PE RADIATION DOSAGE (If Supplied By Facility): CTDIvol = ( 13.55 ) mGy, DLP = ( 445.91 ) mGycm TECHNIQUE: The examination was performed with the intravenous administration of IV 100mL [id number]-370. Post-processing of the angiographic images was performed, with multiplanar reformation and 3D reconstruction. Individualized dose optimization techniques were used for this CT. COMPARISON: March 26, 2016 FINDINGS: Normal enhancement of the main pulmonary artery and right and left pulmonary arteries. Normal enhancement of the bilateral peripheral pulmonary arteries. There is no demonstrated pulmonary embolism. Normal thoracic aorta and visualized great vessels. There is no demonstrated aortic dissection. Normal heart and pericardium. Normal mediastinum. Normal hilar regions. Normal visualized trachea and bronchi. The lungs are well expanded. There are mild groundglass opacities of the left upper lobe. There is pleural fibrotic thickening of the pulmonary lung apices. There is no pleural effusion. Normal chest wall structures. There are degenerative changes of thoracic spine. Normal visualized upper abdomen. CT/CTA Chest W/WO Contrast IMPRESSION: CTA chest examination, without a demonstrated pulmonary embolism or arterial dissection. Mild left upper lobe interstitial edema or infiltrate. Electronically Signed: Boni Jean MD at 12:23 EDT ,
--- NOTE | 2024-07-15 10:57 | EX.ED.DYSGE1 ---
HPI History of Present Illness Chief Complaint: Shortness of Breath Narrative Narrative: Patient is a 64-year-old female past medical history of bipolar disorder, IBS, asthma, mitral valve prolapse, COPD, PE not on anticoagulation who presents to the emergency department chief complaint of pain with deep inspiration on the left side. States that this been going on for 3 to 4 days now. States that she was post have a CT of her chest per her medical secretary teacher today at 4:00 however states that she was concerned prompting her here for further evaluation management. Patient states that recently she did have COVID-19 and completed a course of steroids and doxycycline as well has been off of these medications for a couple days now. Denies any other sick contacts. [facility] Medical History Wears glasses Bipolar disorder Low iron Easy bruising Migraine headache Injury of head and neck History of IBS Heartburn Smoker Shortness of breath on exertion Leg cramps History of edema History of echocardiogram History of stress test Depression Asthma Stomach ulcer MVP (mitral valve prolapse) Skin cancer COPD (chronic obstructive pulmonary disease) Pulmonary embolism Kidney stone Home Medications ?Medication ?Instructions ?Recorded ?Last Taken ?Type topiramate 50 mg tablet 50 mg PO TID migraines 07/21/15 05/06/19 History aripiprazole 5 mg tablet (Abilify) 5 mg PO DAILY 03/19/20 03/17/22 08:00 History furosemide 20 mg tablet 20 mg PO .SEE INSTRUCTIONS 03/17/22 Unknown History hydroxyzine pamoate 50 mg capsule 50 mg PO DAILY PRN PRN Anxiety 03/17/22 Unknown History albuterol sulfate 2.5 mg/3 mL 2.5 mg (3 mL) inhalation Q4H PRN 04/26/22 Unknown Rx (0.083 %) solution for nebulization #25 vials azelastine 137 mcg (0.1 %) nasal 2 spray intranasal BID #30 mL 09/13/22 Unknown Rx spray celecoxib 200 mg capsule (Celebrex) 200 mg PO BID inflamation 01/21/23 Unknown History citalopram 10 mg tablet (Celexa) 30 mg PO QHS 01/21/23 Unknown History gabapentin 300 mg capsule 300 mg PO TID 01/21/23 Unknown History tizanidine 2 mg capsule 2 mg PO Q8H PRN muscle spasticity 03/26/23 Unknown Rx #10 caps albuterol sulfate 90 mcg/actuation 2 puff inhalation Q4H PRN 06/30/23 Unknown Rx aerosol inhaler shortness of breath or wheezing #8.5 grams budesonide-formoterol HFA 160 2 puff inhalation BID #1 ea 10/13/23 Unknown Rx mcg-4.5 mcg/actuation aerosol inhaler (Symbicort) duloxetine 20 mg capsule,delayed 60 mg PO QAM depression 10/19/23 Unknown History release duloxetine 30 mg capsule,delayed 30 mg PO HS 10/19/23 Unknown History release fluticasone propionate 50 2 spray intranasal DAILY 10/19/23 Unknown History mcg/actuation nasal spray,suspension meclizine 25 mg tablet 25 mg PO 4X/DAY PRN PRN Dizziness 04/27/24 Unknown Rx #20 tabs Allergy/AdvReac Type Severity Reaction Status Date / Time latex Allergy Itching Verified 07/15/24 10:28 Penicillins Allergy Hives Verified 07/15/24 10:28 Surgical History History of surgery on lower extremity History of foot surgery History of hysterectomy History of cholecystectomy History of ureter repair Social History household members: none Smoking Status: Former smoker Tobacco: How many years used: 50 alcohol intake: former details: 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 substance use type: does not use ROS ROS ED ROS Narrative Constitutional: Denies any fevers, chills, headaches, lightness, dizziness Eyes: Denies double vision blurry vision change in vision Cardiovascular: Denies chest pain palpitation Respiratory: Complains of shortness of breath and pain with deep inspiration the left side denies coughing Abdomen: Denies abdominal pain nausea vomit diarrhea : Denies any urinary symptoms Neurological: Denies numbness, weakness, tingling Musculoskeletal: Denies back pain Skin: Denies rashes lesions EXAM Physical Exam Narrative Exam Narrative: General: Patient was lying in bed rest comfortably did not appear to be in acute distress Head: Atraumatic, normocephalic Eyes: PERRL bilaterally, EOMI bilaterally no conjunctival injection noted Neck: Soft, supple, trachea midline Cardiovascular: Patient tachycardic with a regular rhythm no murmurs gallops rubs noted Respiratory: Clear to auscultation bilaterally no rales rhonchi wheeze noted Abdomen: Soft, nondistended, nontender to palpation can bowel sounds present x 4 Extremities: +5/5 strength noted in the bilateral upper lower extremities, no pedal edema on exam, radial pulses +2/4 in the bilateral extremities Neurological: Patient follow commands knew that she was at [facility] year is 2023 Skin: Warm, dry, intact no rashes or lesions noted Const Vital Signs: 07/15/24 10:29 07/15/24 11:44 07/15/24 11:44 Temperature 97.8 F Temperature Source Temporal Pulse Rate 102 H Respiratory Rate 16 Respiratory Effort Normal Blood Pressure 114/70 Blood Pressure Mean 84 Pulse Ox 96 Oxygen Delivery Method Room Air Room Air Room Air 07/15/24 12:28 07/15/24 14:00 Temperature Temperature Source Pulse Rate 81 80 Respiratory Rate 16 16 Respiratory Effort Blood Pressure 114/75 111/68 Blood Pressure Mean 88 82 Pulse Ox 96 96 Oxygen Delivery Method Room Air Room Air MDM MDM MDM Narrative Medical decision making narrative: Patient is a 64-year-old female who presented to the emergency department chief complaint of pain with deep inspiration on the left side. Patient blood work performed here on the differential diagnose includes but not limited to ACS, PE, pneumonia, lung mass, upper respiratory factor second viral etiology, CHF. Once workup is obtained reviewed she will be reevaluated. Patient's CBC reviewed showed no evidence leukocytosis white blood count normal at 7.2, hemoglobin 11.2, platelet count was noted be normal at 241. Patient sodium normal 143, potassium normal 3.9, creatinine normal at 0.86. Patient's troponin normal at 4 with a delta troponin obtained normal at 4 as well. Patient's EKG reviewed and showed sinus rhythm with a rate of 80 bpm. Patient's chest x-ray was reviewed and showed no acute cardiopulmonary processes. Patient's CTA of her chest reviewed showed no evidence of pulmonary embolism or arterial dissection. Mild left upper lobe interstitial edema or infiltrate. Patient is not coughing up anything at this point time therefore I do not believe that this is pneumonia. Patient ambulated here in the emergency department well no evidence of hypoxia. Patient was encouraged to follow-up with her medical secretary teacher and her primary care physician outpatient setting. She is encouraged return with worsening symptoms or other concerns. She is agreeable this plan she would like to go home at this point time all question concerns answered she is discharged home in stable condition. Lab Data Labs: Laboratory Results - last 24 hr 07/15/24 07/15/24 11:00 13:18 WBC 7.2 RBC 3.74 L Hgb 11.2 L Hct 35.8 L MCV 95.7 MCH 29.9 MCHC 31.3 L RDW Std Deviation 50.7 H RDW Coeff of Bruna 14.6 Plt Count 241 MPV 9.5 Immature Gran % (Auto) 0.600 Neut % (Auto) 68.4 Lymph % (Auto) 22.0 [place] % (Auto) 5.7 Eos % (Auto) 2.2 Baso % (Auto) 1.1 H Absolute Neuts (auto) 4.9 Absolute Lymphs (auto) 1.59 Nucleated RBC % 0 Sodium 143 Potassium 3.9 Chloride 112 H Carbon Dioxide 27.0 Anion Gap 4 L BUN 19 H Creatinine 0.86 Estim Creat Clear Calc 69.22 Est GFR (MDRD) Af Amer 85 Est GFR (MDRD) Non-Af 71 BUN/Creatinine Ratio 22.1 H Glucose 104 Calcium 8.9 Troponin I High Sens 4 4 Radiography Diagnostic Testing: Clinical Impression(s) from Imaging Studies Chest CTA 07/15/24 10:50 IMPRESSION: CTA chest examination, without a demonstrated pulmonary embolism or arterial dissection. Mild left upper lobe interstitial edema or infiltrate. Electronically Signed: Boni Jean MD at 12:23 EDT , Chest X-Ray 07/15/24 11:46 IMPRESSION: Normal x-ray examination of the chest. Electronically Signed: Boni Jean MD at 12:39 EDT , Discharge Plan Triage Chief Complaint: Shortness of Breath ED Provider: Davin Diez Dx/Rx/DC Orders Clinical Impression: Chest pain Prescriptions: No Action citalopram [Celexa] 10 mg tablet 30 mg PO QHS albuterol sulfate 90 mcg/actuation HFA aerosol inhaler 2 puff inhalation Q4H PRN (Reason: shortness of breath or wheezing) Qty: 8.5 3RF Rx Instructions: administer with spacer fluticasone propionate 50 mcg/actuation spray,suspension 2 spray intranasal DAILY Patient Comments: USE 2 SPRAYS IN EACH NOSTRIL ONCE DAILY. RINSE MOUTH AFTER USE. duloxetine 30 mg capsule,delayed release(DR/EC) 30 mg PO HS Patient Comments: take 1 capsule by mouth once daily at bedtime Rx Instructions: 60 in AM + 30 in Evening topiramate 50 MG tablet 50 mg PO TID aripiprazole [Abilify] 5 mg tablet 5 mg PO DAILY hydroxyzine pamoate 50 mg capsule 50 mg PO DAILY PRN PRN (Reason: Anxiety) Patient Comments: take 1 capsule by mouth four times a day if needed for anxiety furosemide 20 mg tablet 20 mg PO .SEE INSTRUCTIONS Patient Comments: take 1/2 to 1 tablet by mouth once daily if needed for SWELLING in feet celecoxib [Celebrex] 200 mg capsule 200 mg PO BID gabapentin 300 mg capsule 300 mg PO TID duloxetine 20 mg capsule,delayed release(DR/EC) 60 mg PO QAM Rx Instructions: 60 in AM + 30 in Evening albuterol sulfate 2.5 mg /3 mL (0.083 %) solution for nebulization 2.5 mg inhalation Q4H PRN Qty: 25 2RF Rx Instructions: Use q4 hours and PRN for wheezing azelastine 137 mcg (0.1 %) aerosol,spray 2 spray intranasal BID Qty: 30 0RF Rx Instructions: administer into each nostril tizanidine 2 mg capsule 2 mg PO Q8H PRN (Reason: muscle spasticity) Qty: 10 0RF meclizine 25 mg tablet 25 mg PO 4X/DAY PRN PRN (Reason: Dizziness) Qty: 20 0RF budesonide-formoterol [Symbicort] 160-4.5 mcg/actuation HFA aerosol inhaler 2 puff inhalation BID Qty: 1 3RF Rx Instructions: administer with spacer, rinse mouth after each use Primary Care Provider: Jo-Ann López Referrals: Jo-Ann López MD [Primary Care Provider] - Activity Restrictions/Additional Instructions: Follow-up with your doctors in the outpatient setting. Return with worsening symptoms or any other concerns. Print Language: Sami Disposition Disposition: Home, Self Care
[2024-07-15 11:06] LABS: Absolute Lymphocyte Count 1.59 X10^3/uL (0.83-4.51); Absolute Neutrophil Count 4.9 X10^3/uL (2.0-7.7); Basophil# 0.08 X10^3/uL; Basophil% 1.1 % (0-1); Eosinophil# 0.16 X10^3/uL; Eosinophils% 2.2 % (0-5); Hematocrit 35.8 % (37-47); Hemoglobin 11.2 g/dL (12.0-15.0); Lymphocyte # 1.59 X10^3/ul (0.83-4.51); Mean Corp Hgb Conc 31.3 g/dL (32-36); Mean Corpuscular Hgb 29.9 pg (27.0-32.0); Mean Corpuscular Volume 95.7 fL (81-99); Mean Platelet Vol. 9.5 fl (6.2-12.0); Monocyte# 0.41 X10^3/uL; Monocyte% 5.7 % (0-10); NRBC Flagged by Analyzer 0 % (0-5); Neutrophil # 4.94 X10^3/uL (2.7-7.7); Neutrophil % 68.4 % (47-70); Platelet Count 241 K/mm3 (150-450); RBC Distribution Width CV 14.6 % (11.6-14.6); RBC Distribution Width SD 50.7 fl (35.1-43.9); Red Blood Count 3.74 M/mm3 (4.2-5.4); White Blood Count 7.2 K/mm3 (4.4-11.0)
[2024-07-15 11:27] LABS: Anion Gap 4 (5-15); BUN 19 mg/dL (7-18); BUN/Creat Ratio 22.1 RATIO (10-20); Calcium,Total 8.9 mg/dL (8.5-10.1); Chloride 112 mmol/L (98-107); Creatinine, Serum 0.86 mg/dL (0.55-1.02); EST Glomerular Filtration Rate 71 mL/min (>60); Est Glom Filt Rate - Afr Amer 85 mL/min (>60); Estimated Creatinine Clearance 69.22 ml/min; Glucose 104 mg/dL (74-106); Potassium 3.9 mmol/L (3.5-5.1); Sodium Level 143 mmol/L (136-145); Troponin-I HS (w/2H Reflex) 4 pg/mL (3.0-54.0)
--- NOTE | 2024-07-15 11:46 | RAD_ITS ---
STUDY: X-RAY CHEST REASON FOR EXAM: Female, 64 years old. Chest pain TECHNIQUE: Single AP portable view of the chest. COMPARISON: May 06, 2023. FINDINGS: The lungs are clear and expanded. There is no demonstrated pleural abnormality. Normal size heart. Normal mediastinum and marissa. Normal visualized pulmonary arteries. Normal visualized aortic arch and descending thoracic aorta. Normal visualized thoracic spine. Normal visualized ribs, clavicles, and shoulders. There is no demonstrated abnormality of the visualized soft tissue structures of the upper abdomen. RAD/Chest 1 View (Portable) IMPRESSION: Normal x-ray examination of the chest. Electronically Signed: Boni Jean MD at 12:39 EDT ,
[2024-07-15 13:03] LABS: Reflex Troponin-HS? (from REC) Y
[2024-07-15 13:43] LABS: Troponin-I HS 4 pg/mL (3.0-54.0)
[2024-07-15 15:14] LABS: BNP,B-Type NATRIURETIC PEPTIDE 33.8 pg/mL (0-100)
== END 2024-07-15 14:45 | disposition home or self-care (01) ==
PROVIDERS: Emergency Provider Emergency Medicine; PCP Internal Medicine; Visit Provider Emergency Medicine
DX: R07.9 Chest pain, unspecified (principal); F31.9 Bipolar disorder, unspecified; J44.9 Chronic obstructive pulmonary disease, unspecified; R06.02 Shortness of breath; K58.9 Irritable bowel syndrome, unspecified; I34.1 Nonrheumatic mitral (valve) prolapse; Z86.711 Personal history of pulmonary embolism; Z87.442 Personal history of urinary calculi; G43.909 Migraine, unspecified, not intractable, without status migrainosus; Z79.899 Other long term (current) drug therapy; F41.9 Anxiety disorder, unspecified; Z91.040 Latex allergy status; Z88.0 Allergy status to penicillin; R42 Dizziness and giddiness; M62.838 Other muscle spasm; Z90.49 Acquired absence of other specified parts of digestive tract; Z87.891 Personal history of nicotine dependence
CPT/HCPCS: 71045; 71275; 80048; 83880; 84484; 85025; 93005; 99284; Q9967; A4216

== ENCOUNTER → 2024-07-29 | Outpatient (CLI) | payer MEDICARE, MEDICAID, SELFPAY ==
--- NOTE | 2024-07-29 07:31 | CT_ITS ---
STUDY: LOW DOSE CT LUNG CANCER SCREENING REASON FOR EXAM: Female, 64 years old. Smoker. The patient smoked 1 pack per day for 38 years. RADIATION DOSAGE (If Supplied By Facility): CTDIvol = ( 3.02 ) mGy, DLP = ( 93.65 ) mGycm TECHNIQUE: No contrast was administered. Low dose technique was utilized (average mAS-38 and kVp 120). 1.25 mm axial source images with a slice interval of 1.25-mm were reconstructed in lung windows. 2.5 mm axial source images with a slice interval of 2.5-mm were reconstructed in lung windows. 5.0 mm axial source images with a slice interval of 5.0-mm were reconstructed in soft tissue windows. COMPARISON: Comparison is made with prior study dated July 15, 2024 and February 23, 2023.. NODULES: No suspicious nodules are seen. Emphysema: Mild scarring in the right lung apex. Mild scarring in the anterior and medial aspect of the right middle lobe. Endobronchial lesion: None Aorta: Minimal atherosclerotic plaque formation. CORONARY ARTERIES: Coronary artery calcification is not seen. Heart: Unremarkable Pulmonary artery: Unremarkable Mediastinal nodes: Small mediastinal lymph nodes Other chest and abdominal findings: CT/Low Dose CT Lung Screening IMPRESSION: Lung-RADS category 2 - Continue annual screening with LDCT in 12 months. IMPORTANT NOTES FOR USE: ACR Lung-RADS Version 1.1 Assessment Categories Release Date: 2018 Category: Coded 0-4 bases on nodule(s) with highest degree of suspicion. Negative screen is defined as categories 1 and 2; a positive screen is defined as categories 3 and 4. Category 3 and 4A nodules that are unchanged on interval CT should be coded as category 2, and individuals returned to screening in 12 months. Category 4X: Category 3 or 4 nodules with additional imaging findings that increase the suspicion of lung cancer, such as spiculation, GGN that doubles in size in 1 year, enlarged lymph notes, etc. Category Modifiers: S (significant finding unrelated to lung cancer) Electronically Signed: Aleksandr Schmidt MD at 12:01 EDT ,
== END | disposition home or self-care (01) ==
LOC: CT 07:29
PROVIDERS: PCP Internal Medicine; Referring Provider Nurse Practitioner Acute Care; Visit Provider Nurse Practitioner Acute Care
DX: F17.210 Nicotine dependence, cigarettes, uncomplicated (principal)
CPT/HCPCS: 71271

== ENCOUNTER 2024-09-22 12:27 | Emergency (ER) | payer MEDICARE, MEDICAID, SELFPAY ==
[2024-09-22 12:27] VITALS: BP 131/80; PULSE 89; RESP 16; TEMP 35.6; O2SAT 98
--- NOTE | 2024-09-22 12:43 | RAD_ITS ---
STUDY: X-RAY - LEFT FOOT CLINICAL: Female, 64 years old. Heel pain. No known injury. TECHNIQUE: 3 view(s) of the foot. COMPARISON: None. FINDINGS: Small plantar spur. Normal visualized subtalar, talonavicular, calcaneocuboid, tarsal and tarsometatarsal articulations. Normal metatarsi. Normal metatarsophalangeal joint of the great toe. Normal tibial and fibular sesamoid bones. Normal interphalangeal joint of the great toe. Normal phalanges of the great toe. Normal second through fifth metatarsophalangeal joints. Normal interphalangeal joints and phalanges of the lesser toes. Soft tissue swelling. RAD/Foot min 3 Views IMPRESSION: Small plantar spur. Soft tissue swelling. Electronically Signed: Aleksandr Schmidt MD at 13:11 EST ,
--- NOTE | 2024-09-22 12:43 | ED.VIS.LOWEX ---
HPI <RENEE Yousif - Last Filed: 09/22/24 15:00> History of Present Illness Chief Complaint: Lower Extremity Injury Narrative Narrative: Patient presenting today with left heel pain she has had over the past week. She reports that she has pain that starts immediately after getting out of bed and is worse after being on her feet while at work. She denies any injury to her foot. 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 She has been taking Tylenol for her pain with minimal relief. [facility] <RENEE Yousif - Last Filed: 09/22/24 15:00> [facility] Medical History Wears glasses Bipolar disorder Low iron Easy bruising Migraine headache Injury of head and neck History of IBS Heartburn Smoker Shortness of breath on exertion Leg cramps History of edema History of echocardiogram History of stress test Depression Asthma Stomach ulcer MVP (mitral valve prolapse) Skin cancer COPD (chronic obstructive pulmonary disease) Pulmonary embolism Kidney stone Home Medications ?Medication ?Instructions ?Recorded ?Last Taken ?Type topiramate 50 mg tablet 50 mg PO TID migraines 07/21/15 05/06/19 History aripiprazole 5 mg tablet (Abilify) 5 mg PO DAILY 03/19/20 03/17/22 08:00 History furosemide 20 mg tablet 20 mg PO .SEE INSTRUCTIONS 03/17/22 Unknown History hydroxyzine pamoate 50 mg capsule 50 mg PO DAILY PRN PRN Anxiety 03/17/22 Unknown History albuterol sulfate 2.5 mg/3 mL 2.5 mg (3 mL) inhalation Q4H PRN 04/26/22 Unknown Rx (0.083 %) solution for nebulization #25 vials azelastine 137 mcg (0.1 %) nasal 2 spray intranasal BID #30 mL 09/13/22 Unknown Rx spray celecoxib 200 mg capsule (Celebrex) 200 mg PO BID inflamation 01/21/23 Unknown History citalopram 10 mg tablet (Celexa) 30 mg PO QHS 01/21/23 Unknown History gabapentin 300 mg capsule 300 mg PO TID 01/21/23 Unknown History tizanidine 2 mg capsule 2 mg PO Q8H PRN muscle spasticity 03/26/23 Unknown Rx #10 caps albuterol sulfate 90 mcg/actuation 2 puff inhalation Q4H PRN 06/30/23 Unknown Rx aerosol inhaler shortness of breath or wheezing #8.5 grams duloxetine 20 mg capsule,delayed 60 mg PO QAM depression 10/19/23 Unknown History release duloxetine 30 mg capsule,delayed 30 mg PO HS 10/19/23 Unknown History release fluticasone propionate 50 2 spray intranasal DAILY 10/19/23 Unknown History mcg/actuation nasal spray,suspension meclizine 25 mg tablet 25 mg PO 4X/DAY PRN PRN Dizziness 04/27/24 Unknown Rx #20 tabs tiotropium bromide 2.5 2 inh inhalation QDAY #1 ea 08/25/24 Unknown Rx mcg/actuation mist for inhalation (Spiriva Respimat) budesonide-formoterol HFA 160 2 puff inhalation BID #3 ea 08/29/24 Unknown Rx mcg-4.5 mcg/actuation aerosol inhaler (Symbicort) Allergy/AdvReac Type Severity Reaction Status Date / Time latex Allergy Itching Verified 09/22/24 12:29 Penicillins Allergy Hives Verified 09/22/24 12:29 Surgical History History of surgery on lower extremity History of foot surgery History of hysterectomy History of cholecystectomy History of ureter repair Social History household members: none Smoking Status: Former smoker Tobacco: How many years used: 50 alcohol intake: former details: 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 substance use type: does not use ROS <RENEE Yousif - Last Filed: 09/22/24 15:00> ROS ED Constitutional Constitutional ED: Denies chills or fever(s) Cardiovascular Cardiovascular: Denies chest pain Respiratory/Chest Respiratory/Chest: Denies dyspnea Gastrointestinal Gastrointestinal: Denies abdominal pain, nausea or vomiting Musculoskeletal Musculoskeletal: Reports arthralgias Integumentary Denies rash Neurologic Neurologic: Denies paresthesias EXAM <RENEE Yousif - Last Filed: 09/22/24 15:00> Physical Exam Const Vital Signs: 09/22/24 12:27 09/22/24 13:33 Temperature 96.1 F L 97.6 F L Temperature Source Temporal Pulse Rate 89 84 Respiratory Rate 16 16 Blood Pressure 131/80 H 128/86 H Blood Pressure Mean 97 100 Pulse Ox 98 99 Oxygen Delivery Method Room Air Positive well nourished, well developed and no apparent distress General Appearance ED: well developed HEENT Reports normocephalic and head/scalp atraumatic Mouth ED: Yes moist mucous membranes normal Eyes PERRL and EOMs intact bilaterally Neck full ROM and supple Chest Wall inspection of chest normal Resp normal respiratory effort and clear to auscultation bilaterally Cardio regular rate and regular rhythm Back/Spine normal ROM and normal to inspection Extremity normal to inspection and full ROM Extremity Narrative: Pain to palpation to the base of the L heel, left DP pulse 2+, good cap refill, sensation intact Neuro oriented x3, CN's II-XII intact bilaterally, moves all extremities, no focal motor deficits and no sensory deficits noted Sensorium / Orientation: awake and alert Psych mental status grossly normal and thought process normal Skin no rashes or lesions noted and no wounds <Dr. Panda Jordan DO - Last Filed: 09/22/24 13:35> Physical Exam Const Vital Signs: 09/22/24 12:27 09/22/24 13:33 Temperature 96.1 F L 97.6 F L Temperature Source Temporal Pulse Rate 89 84 Respiratory Rate 16 16 Blood Pressure 131/80 H 128/86 H Blood Pressure Mean 97 100 Pulse Ox 98 99 Oxygen Delivery Method Room Air [facility] <RENEE Yousif - Last Filed: 09/22/24 15:00> [facility] Narrative Medical decision making narrative: Patient presenting today with pain to the left heel that she has had over the past week. Her pain is worse in the morning and after she spends a lot of time standing at work. Her examination is consistent with plantar fasciitis, x-ray of the foot was obtained and shows a small plantar spur. She does have a follow-up with podiatry on 10/14. Supportive care measures were discussed, she can use shoe inserts, take Tylenol and ibuprofen as needed for pain, RICE instructions discussed. She will be discharged home in stable condition. Radiography X-Ray: Read by ED Physician Diagnostic Testing: Clinical Impression(s) from Imaging Studies Foot X-Ray 09/22/24 12:43 IMPRESSION: Small plantar spur. Soft tissue swelling. Electronically Signed: Aleksandr Schmidt MD at 13:11 EST , <Dr. Panda Jordan, DO - Last Filed: 09/22/24 13:35> MDM Radiography Diagnostic Testing: Clinical Impression(s) from Imaging Studies Foot X-Ray 09/22/24 12:43 IMPRESSION: Small plantar spur. Soft tissue swelling. Electronically Signed: Aleksandr Schmidt MD at 13:11 EST , Treatment and Re-Evaluation Narrative: I have personally performed a face to face assessment of the patient and have reviewed the MIRI Note. I performed a substantive portion of the visit including all aspects of the following. My montalvo findings include: History is 64-year-old female presenting to the emergency room with left heel pain. Patient states it hurts whenever she bears weight on it. Not necessarily worse in the mornings as activity continues. She notes intermittent cramping of her feet that makes her toes curled down. She has an appointment mid October to see podiatry. She states that she could not take the pain anymore so she decided to come to the emergency. No trauma. She is not a diabetic. No sensory changes. Exam is tender to palpation along the heel. I do not appreciate any significant swelling. No wounds. Neurovascular intact. Medical Decison Making my independent trepidation of the plain films of the foot is small plantar heel spur. We can write the patient for some pain medication would recommend podiatry follow-up. Discharge Plan Triage Chief Complaint: Lower Extremity Injury ED Midlevel Provider: Felisa Orosco ED Provider: Panda Jordan Dx/Rx/DC Orders Clinical Impression: Plantar fasciitis Instructions: ED Plantar Fasciitis Prescriptions: No Action citalopram [Celexa] 10 mg tablet 30 mg PO QHS albuterol sulfate 90 mcg/actuation HFA aerosol inhaler 2 puff inhalation Q4H PRN (Reason: shortness of breath or wheezing) Qty: 8.5 3RF Rx Instructions: administer with spacer fluticasone propionate 50 mcg/actuation spray,suspension 2 spray intranasal DAILY Patient Comments: USE 2 SPRAYS IN EACH NOSTRIL ONCE DAILY. RINSE MOUTH AFTER USE. duloxetine 30 mg capsule,delayed release(DR/EC) 30 mg PO HS Patient Comments: take 1 capsule by mouth once daily at bedtime Rx Instructions: 60 in AM + 30 in Evening Spiriva Respimat 2.5 mcg/actuation mist 2 inh inhalation QDAY Qty: 1 6RF Rx Instructions: administer at approximately the same time(s) each day topiramate 50 MG tablet 50 mg PO TID aripiprazole [Abilify] 5 mg tablet 5 mg PO DAILY hydroxyzine pamoate 50 mg capsule 50 mg PO DAILY PRN PRN (Reason: Anxiety) Patient Comments: take 1 capsule by mouth four times a day if needed for anxiety furosemide 20 mg tablet 20 mg PO .SEE INSTRUCTIONS Patient Comments: take 1/2 to 1 tablet by mouth once daily if needed for SWELLING in feet celecoxib [Celebrex] 200 mg capsule 200 mg PO BID gabapentin 300 mg capsule 300 mg PO TID duloxetine 20 mg capsule,delayed release(DR/EC) 60 mg PO QAM Rx Instructions: 60 in AM + 30 in Evening albuterol sulfate 2.5 mg /3 mL (0.083 %) solution for nebulization 2.5 mg inhalation Q4H PRN Qty: 25 2RF Rx Instructions: Use q4 hours and PRN for wheezing azelastine 137 mcg (0.1 %) aerosol,spray 2 spray intranasal BID Qty: 30 0RF Rx Instructions: administer into each nostril tizanidine 2 mg capsule 2 mg PO Q8H PRN (Reason: muscle spasticity) Qty: 10 0RF meclizine 25 mg tablet 25 mg PO 4X/DAY PRN PRN (Reason: Dizziness) Qty: 20 0RF budesonide-formoterol [Symbicort] 160-4.5 mcg/actuation HFA aerosol inhaler 2 puff inhalation BID Qty: 3 3RF Rx Instructions: administer with spacer, rinse mouth after each use Stand Alone Forms: ED Work / School Excuse Primary Care Provider: Jo-Ann López Referrals: Jo-Ann López MD [Primary Care Provider] - Activity Restrictions/Additional Instructions: Follow-up with podiatry. You can begin taking ibuprofen or naproxen along with Tylenol to help with your pain. Buy more supportive shoe inserts as this may help as well. Print Language: Citizen Of [place] Disposition Disposition: Home, Self Care Discharge Date/Time: 09/22/24 13:33
[2024-09-22 12:56] VITALS: BMI 39.2
[2024-09-22 13:33] VITALS: BP 128/86; PULSE 84; RESP 16; TEMP 36.4; O2SAT 99
== END 2024-09-22 13:33 | disposition home or self-care (01) ==
PROVIDERS: Emergency Provider Emergency Medicine; PCP Internal Medicine; Referring Provider Emergency Medicine; Visit Provider Emergency Medicine
DX: M72.2 Plantar fascial fibromatosis (principal); F31.9 Bipolar disorder, unspecified; J44.9 Chronic obstructive pulmonary disease, unspecified; M77.32 Calcaneal spur, left foot; I34.1 Nonrheumatic mitral (valve) prolapse; G43.909 Migraine, unspecified, not intractable, without status migrainosus; Z88.0 Allergy status to penicillin; Z90.49 Acquired absence of other specified parts of digestive tract; Z87.19 Personal history of other diseases of the digestive system; Z85.828 Personal history of other malignant neoplasm of skin; Z86.711 Personal history of pulmonary embolism; Z79.899 Other long term (current) drug therapy; Z87.891 Personal history of nicotine dependence
CPT/HCPCS: 73630; 99282

== ENCOUNTER → 2024-10-24 | Outpatient (CLI) | payer MEDICARE, MEDICAID, SELFPAY ==
[2024-10-27 08:06] LABS: Endomysial Antibody IgA Negative (Negative); Immunoglobulin A 111 mg/dL (87-352); t-Transglutaminase IgA <2 U/mL (0-3)
[2024-10-29 01:06] LABS: Beef <0.10 kU/L (Class 0); Chocolate <0.10 kU/L (Class 0); Codfish <0.10 kU/L (Class 0); Corn <0.10 kU/L (Class 0); Egg, Whole <0.10 kU/L (Class 0); Milk (Cow) <0.10 kU/L (Class 0); Mussels <0.10 kU/L (Class 0); Peanut <0.10 kU/L (Class 0); Pork <0.10 kU/L (Class 0); Salmon <0.10 kU/L (Class 0); Shrimp <0.10 kU/L (Class 0); Soybean <0.10 kU/L (Class 0); Tuna <0.10 kU/L (Class 0); Wheat <0.10 kU/L (Class 0)
== END | disposition home or self-care (01) ==
LOC: LAB 09:47
PROVIDERS: PCP Internal Medicine; Referring Provider Nurse Practitioner Acute Care; Visit Provider Nurse Practitioner Acute Care
DX: R15.9 Full incontinence of feces (principal); R19.7 Diarrhea, unspecified
CPT/HCPCS: 36415; 82784; 83516; 84443; 86003; 86005; 86255

== ENCOUNTER 2024-12-06 05:19 | Day surgery (SDC) | payer MEDICARE, SELFPAY ==
--- NOTE | 2024-12-02 14:44 | PAT.ANE_ITS ---
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 When Was Last Pacemaker Check QUESTION #4 FULL TEXT: You/Your Family Experience fever (hyperthermia) with Anesthesia Last Oral Intake Last Oral intake: Last Oral Intake NPO since Meds taken in AM with sips of water? Meds patient instructed to take am of surgery PONV PONV - boring machine operator production: PONV - boring machine operator production Female Yes 12/02/24 13:49 HX of Motion Sickness No 12/02/24 13:49 HX of N/V After Surgery No 12/02/24 13:49 Non-Smoker Yes 12/02/24 13:49 Duration of Surgery greater No 12/02/24 13:49 than 60 minutes Number of Risk Factors 2 12/02/24 13:49 PONV Score Moderate Risk 12/02/24 13:49 Height & Weight Height & Weight: Anesthesia: Height & Weight Height 5 ft 2 in 10/24/24 08:58 Respiratory Assessment Respiratory Assessment - boring machine operator production: Respiratory Tract Infection Hx - boring machine operator production Hx Respiratory Tract Infection No 12/02/24 13:49 STOP Sleep Apnea STOP Sleep Apnea - boring machine operator production: STOP Sleep Apnea - boring machine operator production Hx Hypertension No: HYPOTENSION 12/02/24 13:49 Hx Sleep Apnea No 12/02/24 13:49 CPAP No 12/02/24 13:49 BIPAP Do you snore loudly (louder No 12/02/24 13:49 than talking or can be heard Do you often feel tired/ No 12/02/24 13:49 fatigued/ sleepy during daytime? Has anyone observed you stop No 12/02/24 13:49 breathing during sleep? STOP Results Negative 12/02/24 13:49 QUESTION #5 FULL TEXT : Do you snore loudly (louder than talking or can be heard through closed doors)? 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 Specify any problems Hx of Preganancy in last 3 No 12/02/24 13:49 Months Nurse Filling Out Transfusion DSCHRIBER 12/02/24 13:49 & Questions: Date: 12/02/24 12/02/24 13:49 Time: 13:52 12/02/24 13:49 Patient unable to answer at this time (ie. confused, unrespo /Reproduction History /Reproductive History - boring machine operator production: /Reproductive Hx- boring machine operator production Hx Now No 12/02/24 13:49 Gestational Age (in weeks): EDC: Hx Hx Para Hx Section SAB No 12/02/24 13:49 PFSH Medical History (Updated 12/02/24 @ 14:05 by Frannie Valero) Loss of hearing Marijuana use Redness of skin Arthritis DDD (degenerative disc disease), lumbar DDD (degenerative disc disease), cervical Vertigo History of ulceration Former smoker On home oxygen therapy History of pain when walking Hx of reduction of nasal fracture Wears glasses Bipolar disorder Migraine headache Injury of head and neck History of IBS Shortness of breath on exertion Leg cramps History of edema History of echocardiogram History of stress test Depression Asthma MVP (mitral valve prolapse) Skin cancer COPD (chronic obstructive pulmonary disease) Pulmonary embolism Home Medications ?Medication ?Instructions ?Recorded ?Last Taken ?Type aripiprazole 5 mg tablet (Abilify) 5 mg PO DAILY 03/1903/17/22 08:00 History furosemide 20 mg tablet 20 mg PO PRN PRN edema 03/17 Unknown History hydroxyzine pamoate 50 mg capsule 50 mg PO DAILY PRN P RN Anxiety 03/17/22 Unknown History albuterol sulfate 2.5 mg/3 mL 2.5 mg (3 mL) inhalation Q4H PRN 04/26/22 Unknown Rx (0.083 %) solution for nebulization #25 vials celecoxib 200 mg capsule (Celebrex) 200 mg PO BID infl amation 01/21/23 Unknown History gabapentin 300 mg capsule 300 mg PO TID 01/21/23 Unkno wn History tizanidine 2 mg capsule 2 mg PO Q8H PRN muscle spast icity 03/26/23 Unknown Rx #10 caps albuterol sulfate 90 mcg/actuation 2 puff inhalation Q 4H PRN 06/30/23 Unknown Rx aerosol inhaler shortness of breath or wheez ing #8.5 grams duloxetine 20 mg capsule,delayed 60 mg PO QAM depressi on 10/19/23 Unknown History release duloxetine 30 mg capsule,delayed 30 mg PO HS 10/19/23 Unknown History release fluticasone propionate 50 2 spray intranasal DAILY Unknown History mcg/actuation nasal spray,suspension meclizine 25 mg tablet 25 mg PO 4X/DAY PRN PRN Dizz iness 04/27/24 Unknown Rx #20 tabs tiotropium bromide 2.5 2 inh inhalation QDAY #1 ea 08/25/24 Unknown Rx mcg/actuation mist for inhalation (Spiriva Respimat) dicyclomine 10 mg capsule 10 mg PO 4X/DAY 10/24/24 Unk nown History topiramate 50 mg tablet 25 mg PO TID migraines 10/24 Unknown History budesonide-formoterol HFA 160 2 inh inhalation DAILY 0 12/02/24 Unknown History mcg-4.5 mcg/actuation aerosol inhaler Allergy/AdvReac Type Severity Reaction Status Date / Time hydromorphone Allergy Other Verified 12/02/24 13:45 latex Allergy Itching Verified 12/02/24 13:45 Penicillins Allergy Hives Verified 12/02/24 13:45 Surgical History (Updated 12/02/24 @ 14:05 by Frannie Valero) Hx of colonoscopy Hx of total knee arthroplasty History of surgery on lower extremity History of foot surgery History of hysterectomy History of cholecystectomy History of ureter repair Social History household members: none Smoking Status: Former smoker Tobacco: How many years used: 50 alcohol intake: former details: 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 substance use type: does not use Audit: Pertinent Findings Pertinent Findings EKG Perinent findings: 07/15/2024 normal sinus rhythm 80 bpm low voltage QRS Pulmonary function results/spirometer pertinent findings: Chest x-ray 07/15/2024 normal x-ray examination of chest PFT 02/24/2023 grossly normal PFT but diffusion capacity is at lower limit of normal may indicate early emphysema versus pulmonary vascular disease Recommendation Anesthesia Recommendation Anesthesia recommendation: OPTIMIZED for anesthesia
[2024-12-06] VITALS (7 sets, daily range): BP systolic 114–124; BP diastolic 65–72; PULSE 66–73; RESP 16–18; TEMP 36.2–36.7; O2SAT 97–100; BMI 39.9
--- NOTE | 2024-12-06 | COLBX_PTH ---
PATIENT: AMADA MARSHALL LOC: EN U#:[id number] AGE/SX: 64/F ROOM: RE12/06/[address]: Dr. Jermaine Villegas DO : 1960 BED: DIS: 12/06/2024 SPEC #: [id number] RECD: 12/06/24 12:52 STATUS: MELY ALFIE #: [id number] HARMEET: 12/06/24 00:[address]: Jermaine Villegas DEPT: SURGICAL PATHOLOGY RECD BY: Andre Aldana ENTERED: 12/06/24 12:52 SP TYPE: COLON BX OT DR: Dr. Jo-Ann López MD Tissues: A - Ileum, NOS B - COLON BIOPSY C - Transverse colon Procedures: Surgery Specimen Level IV HEADER OPERATION: Colonoscopy, biopsy PRE-OP DIAGNOSIS: Fecal incontinence, diarrhea TISSUE SUBMITTED: A- Terminal ileum biopsy, B- Random colonic biopsy, C- Transverse polyp biopsy MICROSCOPIC DIAGNOSIS A. Terminal ileum, biopsy: Fragments of small intestinal mucosa, no pathologic diagnosis. B. Colon, random biopsy: Fragments of colonic mucosa, no pathologic diagnosis. C. Transverse colon polyp, biopsy: Tubular adenoma. 12/07/2024 MICROSCOPIC DESCRIPTION Slides are reviewed. GROSS DESCRIPTION A. Received in fixative is one container labeled with the patient's name and designated Terminal ileum biopsy. The specimen consists of two irregular fragments of light tavera soft tissue that in aggregate measure 1 x 0.3 x 0.1 cm. The specimen is totally submitted in one cassette. B. Received in fixative is one container labeled with the patient's name and designated Random colonic biopsy. The specimen consists of multiple irregular fragments of light tavera soft tissue that in aggregate measure 1 x 0.5 x 0.2 cm. The specimen is totally submitted in one cassette. C. Received in fixative is one container labeled with the patient's name and designated Transverse polyp biopsy. The specimen consists of one irregular fragment of light tavera soft tissue that measures 0.4 x 0.3 x 0.1 cm. The specimen is totally submitted in one cassette. 12/06/2024 TC:1 CPT:32354k1
--- NOTE | 2024-12-06 06:27 | PRE.ANES_ITS ---
ASA Classification* ASA Classification ASA Classification: 3 Assessment & Plan Anesthesia* Anesthesia Assessment Anesthesia Assessment: Discussed sedation and/or anesthesia options, risks, benefits, and alternatives with patient/parents/legal guardian/POA. Questions invited. The patient/parents/legal guardian/POA seems to understand and agrees to proceed with anesthesia plan. Reviewed the physical assessment, medical history, allergy history and patient home medications list prior to surgery/procedure/anesthetic and documented any changes. Performed airway and anesthesia risk assessments. Anesthesia Type Anesthesia Type: MAC History Source History Obtained from:: Patient and Chart Anesthesia Focused Assessment* Temperature: 97.3 F Pulse Rate: 73 Blood Pressure: 119/65 Respiratory Rate: 16 Pulse Ox: 97 Oxygen Delivery Method: Room Air Airway Assessment Mouth opens: >3 cm Mallampati Score: III Teeth Condition: Intact Neck Range of motion (ROM): Limited ROM (Slight decrease in extension) Focused Labs Anesthesia Preop lab: CBC WBC 7.2 K/mm3 (4.4-11.0) 07/15/24 11:00 07/15/24 RBC 3.74 M/mm3 (4.2-5.4) L 07/15/24 11:00 07/15/24 Hgb 11.2 g/dL (12.0-15.0) L 07/15/24 11:00 4 Hct 35.8 % (37-47) L 07/15/24 11:00 07/15/24 Plt Count 241 K/mm3 (150-450) 07/15/24 11:00 07/15/24 CHEMISTRY Potassium 3.9 mmol/L (3.5-5.1) 07/15/24 11:00 07/15/24 Sodium 143 mmol/L (136-145) 07/15/24 11:00 07/15/24 BUN 19 mg/dL (7-18) H 07/15/24 11:00 07/15/24 Creatinine 0.86 mg/dL (0.55-1.02) 07/15/24 11:00 07/15/24 Glucose 104 mg/dL (74-106) 07/15/24 11:00 07/15/24 TSH 1.410 uIU/mL (0.358-3.740) 10/24/24 09:10/03 COAG PT 12.3 SECONDS (11.7-14.9) 07/05/20 03:10 Pre-Assessment Diagnosis/Proposed Procedure Planned Operative Procedure(s): CSCOPE Anesthesia History Anesthesia History - external relations manager: Anesthesia History - external relations manager Hx Hospitalization No 12/02/24 13:49 Any Problems With Anesthesia No 12/02/24 13:49 Cholinesterase deficiency No 12/02/24 13:49 You/Your Family Experience No 12/02/24 13:49 fever (hyperthermia) with Relationship Recent Exposure to Contagious No 03/17/22 12:40 Disease Does patient have nerve No 12/02/24 13:49 stimulator Patient instructed to have device shut off --Does patient have Pacemaker No 12/06/24 05:48 or ICD? When Was Last Pacemaker Check QUESTION #4 FULL TEXT: You/Your Family Experience fever (hyperthermia) with Anesthesia Last Oral Intake Last Oral intake: Last Oral Intake NPO since 03:00 12/06/24 05:48 Meds taken in AM with sips of water? Meds patient instructed to take am of surgery Any additional information?: Yes NPO since: 03:00 (Patient finished prep at 2:30 AM. And last medications at 3 AM.) Meds taken in AM with sips of water?: Yes PONV PONV - external relations manager: PONV - external relations manager Female Yes 12/02/24 13:49 HX of Motion Sickness No 12/02/24 13:49 HX of N/V After Surgery No 12/02/24 13:49 Non-Smoker Yes 12/02/24 13:49 Duration of Surgery greater No 12/02/24 13:49 than 60 minutes Number of Risk Factors 2 12/02/24 13:49 PONV Score Moderate Risk 12/02/24 13:49 Height & Weight Height & Weight: Anesthesia: Height & Weight Height 5 ft 2 in 12/06/24 05:48 Weight: 98.974 kg 12/06/24 05:48 Body Mass Index (BMI) 39.9 12/06/24 05:48 Respiratory Assessment Respiratory Assessment - external relations manager: Respiratory Tract Infection Hx - external relations manager Hx Respiratory Tract Infection No 12/02/24 13:49 STOP Sleep Apnea STOP Sleep Apnea - external relations manager: STOP Sleep Apnea - external relations manager Hx Hypertension No: HYPOTENSION 12/02/24 13:49 Hx Sleep Apnea No 12/02/24 13:49 CPAP No 12/02/24 13:49 BIPAP Do you snore loudly (louder No 12/02/24 13:49 than talking or can be heard Do you often feel tired/ No 12/02/24 13:49 fatigued/ sleepy during daytime? Has anyone observed you stop No 12/02/24 13:49 breathing during sleep? STOP Results Negative 12/02/24 13:49 QUESTION #5 FULL TEXT : Do you snore loudly (louder than talking or can be heard through closed doors)? Tobacco Use History Tobacco Use History - external relations manager: Tobacco Use History - external relations manager Tobacco Use Non-smoker 04/11/21 03:29 Smoking Status Former smoker 12/02/24 13:49 Hx Tobacco Use Yes 12/02/24 13:49 Years Smoking Packs Smoked per Day Smoking Cessation Date was Yes - quit smoking within 15 12/02/24 13:49 within the last 15 years years Hx Smoking Cessation Date 08/02/23 12/02/24 13:49 Hx Smoking Cessation Counseling Hematologic Medial History Hematologic Hx - external relations manager: Hematologic Medical Hx - senior procurement manager Hx of Blood Transfusion Yes 12/02/24 13:49 Hx of Transfusion in last 3 No 12/02/24 13:49 Months Date of Last Transfusion (if within last 3 months) Ever experience any problems No 12/02/24 13:49 with transfusion(s)? Specify any problems Hx of Preganancy in last 3 No 12/02/24 13:49 Months Nurse Filling Out Transfusion DSCHRIBER 12/02/24 13:49 & Questions: Date: 12/02/24 12/02/24 13:49 Time: 13:52 12/02/24 13:49 Patient unable to answer at this time (ie. confused, unrespo /Reproduction History /Reproductive History - external relations manager: /Reproductive Hx- external relations manager Hx Now No 12/02/24 13:49 Gestational Age (in weeks): EDC: Hx Hx Para Hx Section SAB No 12/02/24 13:49 PFSH Medical History Loss of hearing Marijuana use Redness of skin Arthritis DDD (degenerative disc disease), lumbar DDD (degenerative disc disease), cervical Vertigo History of ulceration Former smoker On home oxygen therapy History of pain when walking Hx of reduction of nasal fracture Wears glasses Bipolar disorder Migraine headache Injury of head and neck History of IBS Shortness of breath on exertion Leg cramps History of edema History of echocardiogram History of stress test Depression Asthma MVP (mitral valve prolapse) Skin cancer COPD (chronic obstructive pulmonary disease) Pulmonary embolism Home Medications ?Medication ?Instructions ?Recorded ?Last Taken ?Type aripiprazole 5 mg tablet (Abilify) 5 mg PO DAILY 03/1912/05/24 03:00 History furosemide 20 mg tablet 20 mg PO PRN PRN edema 03/17 Unknown History hydroxyzine pamoate 50 mg capsule 50 mg PO DAILY PRN P RN Anxiety 03/17/22 Unknown History albuterol sulfate 2.5 mg/3 mL 2.5 mg (3 mL) inhalation Q4H PRN 04/26/22 Unknown Rx (0.083 %) solution for nebulization #25 vials celecoxib 200 mg capsule (Celebrex) 200 mg PO BID infl amation 01/21/23 12/06/24 03:00 History gabapentin 300 mg capsule 300 mg PO TID 01/21/2312/06 03:00 History tizanidine 2 mg capsule 2 mg PO Q8H PRN muscle spast icity 03/26/23 Unknown Rx #10 caps albuterol sulfate 90 mcg/actuation 2 puff inhalation Q 4H PRN 06/30/23 Unknown Rx aerosol inhaler shortness of breath or wheez ing #8.5 grams duloxetine 20 mg capsule,delayed 60 mg PO QAM depressi on 10/19/23 12/06/24 03:00 History release duloxetine 30 mg capsule,delayed 30 mg PO HS 10/19/23 12/06/24 03:00 History release fluticasone propionate 50 2 spray intranasal DAILY 12/05/24 History mcg/actuation nasal spray,suspension meclizine 25 mg tablet 25 mg PO 4X/DAY PRN PRN Dizz iness 04/27/24 Unknown Rx #20 tabs tiotropium bromide 2.5 2 inh inhalation QDAY #1 ea 08/25/24 12/06/24 03:00 Rx mcg/actuation mist for inhalation (Spiriva Respimat) dicyclomine 10 mg capsule 10 mg PO 4X/DAY 10/24/2402/24 03:00 History topiramate 50 mg tablet 25 mg PO TID migraines 10/2412/06/24 03:00 History budesonide-formoterol HFA 160 2 inh inhalation DAILY 0 12/02/24 12/05/24 History mcg-4.5 mcg/actuation aerosol inhaler Allergy/AdvReac Type Severity Reaction Status Date / Time hydromorphone Allergy Other Verified 12/06/24 05:40 latex Allergy Itching Verified 12/06/24 05:40 Penicillins Allergy Hives Verified 12/06/24 05:40 Surgical History Hx of colonoscopy Hx of total knee arthroplasty History of surgery on lower extremity History of foot surgery History of hysterectomy History of cholecystectomy History of ureter repair Social History household members: none Smoking Status: Former smoker Tobacco: How many years used: 50 alcohol intake: former details: 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 substance use type: does not use Review of Systems (Anesthesia) ROS Narrative System reviewed and no additional complaints, except as documented.
--- NOTE | 2024-12-06 06:46 | PCM.HP.STD ---
HPI - General General Date of Admission: 12/06/24 Date of Service: 12/06/24 Chief Complaint: diarrhea HPI Narrative 64y/o female presents for consultation with complaints of diarrhea dating back to 2017. History of CCX in 2018. Colonoscopy was last performed 11/26/2017 and biopsies were negative for microscopic colitis. She reports an increase in diarrhea CCX 09/06/2018 - Dr. Cevallos Colon 11/26/2017 negative TI biopsy and random biopsies negative for microscopic colitis - diarrhea has been going on long before removal of GB - diarrhea for several years - 6-7 BM a day - typically has 4 BM in morning before leaving for work - before eating - diarrhea is not changed with PO intake - now experiencing fecal incontinence - in the past she has tried dicyclomine and cholestyramine - failed - diarrhea is much worse with drinking OJ - denies any weight loss or bleeding - denies any HB, N/V - 3L of O2 at HS - denies use of Bipap or Cpap PFSH Medical History Loss of hearing Marijuana use Redness of skin Arthritis DDD (degenerative disc disease), lumbar DDD (degenerative disc disease), cervical Vertigo History of ulceration Former smoker On home oxygen therapy History of pain when walking Hx of reduction of nasal fracture Wears glasses Bipolar disorder Migraine headache Injury of head and neck History of IBS Shortness of breath on exertion Leg cramps History of edema History of echocardiogram History of stress test Depression Asthma MVP (mitral valve prolapse) Skin cancer COPD (chronic obstructive pulmonary disease) Pulmonary embolism Home Medications ?Medication ?Instructions ?Recorded ?Last Taken ?Type aripiprazole 5 mg tablet (Abilify) 5 mg PO DAILY 03/19/20 12/05/24 03:00 History furosemide 20 mg tablet 20 mg PO PRN PRN edema 03/17/22 Unknown History hydroxyzine pamoate 50 mg capsule 50 mg PO DAILY PRN PRN Anxiety 03/17/22 Unknown History albuterol sulfate 2.5 mg/3 mL 2.5 mg (3 mL) inhalation Q4H PRN 04/26/22 Unknown Rx (0.083 %) solution for nebulization #25 vials celecoxib 200 mg capsule (Celebrex) 200 mg PO BID inflamation 01/21/23 12/06/24 03:00 History gabapentin 300 mg capsule 300 mg PO TID 01/21/23 12/06/24 03:00 History tizanidine 2 mg capsule 2 mg PO Q8H PRN muscle spasticity 03/26/23 Unknown Rx #10 caps albuterol sulfate 90 mcg/actuation 2 puff inhalation Q4H PRN 06/30/23 Unknown Rx aerosol inhaler shortness of breath or wheezing #8.5 grams duloxetine 20 mg capsule,delayed 60 mg PO QAM depression 10/19/23 12/06/24 03:00 History release duloxetine 30 mg capsule,delayed 30 mg PO HS 10/19/23 12/06/24 03:00 History release fluticasone propionate 50 2 spray intranasal DAILY 10/19/23 12/05/24 History mcg/actuation nasal spray,suspension meclizine 25 mg tablet 25 mg PO 4X/DAY PRN PRN Dizziness 04/27/24 Unknown Rx #20 tabs tiotropium bromide 2.5 2 inh inhalation QDAY #1 ea 08/25/24 12/06/24 03:00 Rx mcg/actuation mist for inhalation (Spiriva Respimat) dicyclomine 10 mg capsule 10 mg PO 4X/DAY 10/24/24 12/06/24 03:00 History topiramate 50 mg tablet 25 mg PO TID migraines 10/24/24 12/06/24 03:00 History budesonide-formoterol HFA 160 2 inh inhalation DAILY 12/02/24 12/05/24 History mcg-4.5 mcg/actuation aerosol inhaler Allergy/AdvReac Type Severity Reaction Status Date / Time hydromorphone Allergy Other Verified 12/06/24 05:40 latex Allergy Itching Verified 12/06/24 05:40 Penicillins Allergy Hives Verified 12/06/24 05:40 Surgical History Hx of colonoscopy Hx of total knee arthroplasty History of surgery on lower extremity History of foot surgery History of hysterectomy History of cholecystectomy History of ureter repair Social History household members: none Smoking Status: Former smoker Tobacco: How many years used: 50 alcohol intake: former details: 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 substance use type: does not use ROS Constitutional Constitutional: Denies fatigue, fever(s), poor appetite, weight gain or weight loss Gastrointestinal Gastrointestinal: Denies belching, bloating, change in bowel habits, change in stool character, chewing difficulty, coffee ground emesis, constipation, cramping, diarrhea, dyspepsia, dysphagia, early satiety, excessive flatus, fecal incontinence, heartburn, hematemesis, hematochezia, hemorrhoids, loose stools, melena, nausea, odynophagia, rectal bleeding, tenesmus, vomiting or weight changes Vital Signs Vital Signs Vital Signs: 12/06/24 05:44 12/06/24 05:48 12/06/24 06:33 Temperature 97.3 F L 97.3 F L Temperature Source Temporal Pulse Rate 73 73 Respiratory Rate 16 16 Respiratory Pattern Normal Blood Pressure 119/65 119/65 Blood Pressure Mean 83 Blood Pressure Source Monitor Blood Pressure Position Semi-Fowlers Blood Pressure Location Left Arm Pulse Ox 97 97 Oxygen Delivery Method Room Air Room Air Weight Weight: 218 lb 3.2 oz Body Mass Index (BMI) 39.9 Physical Exam Const alert, oriented x3, no apparent distress and healthy appearing General Appearance: cooperative GI normal to inspection, nondistended, normoactive bowel sounds, soft to palpation, non-tender and non-distended Percussion: normal to percussion Rectal Exam: deferred Assessment & Plan Assessment/Plan (1) Fecal incontinence: QUALIFIERS: Fecal incontinence type: fecal urgency Qualified Code(s): R15.9 - Full incontinence of feces; R15.2 - Fecal urgency (2) Diarrhea: QUALIFIERS: Diarrhea type: unspecified type Qualified Code(s): R19.7 - Diarrhea, unspecified PLAN: Plan Plan 64y/o female presents for consultation with complaints of diarrhea dating back to 2017. History of CCX in 2018. Colonoscopy was last performed 11/26/2017 and biopsies were negative for microscopic colitis. She reports an increase in diarrhea over the past couple months. Brooke 5-7. She reports failing Imodium, dicyclomine and cholestyramine in the past. She has at least 4 stools before work every morning with additional loose stools throughout the day with urgency and incontinence. She denies any new medications or dose adjustments. Denies any dietary changes. She denies any family history of IBD, celiac disease or colon cancer. I have ordered stool testing, labs and scheduled her for a colonoscopy. She will also start Metamucil and a daily probiotic. Pending symptoms and findings consider FODMAP diet Patient Instructions: Start Metamucil 2 tsp once a day with 8 ounces of water every morning at least 1 hour after morning medications Start a daily probiotic once daily (Align, Culturelle or [employer]) once daily Okay, to continue to take dicyclomine as needed Okay, to continue Cholestyramine - This medication should be taken before a meal and/or at bedtime. Your other medications should be taken at least 1h before or 4h after you take cholestyramine because cholestyramine can interfere with their absorption. Follow-up in office after completion of testing You may be a candidate for Colon Cancer research study being performed currently in [place]. Please contact [facility] at [phone] to inquire. You will be required to have blood work drawn at the research center in [place] +/- 14 days from the colonoscopy.
--- NOTE | 2024-12-06 07:17 | OP.COLON_ITS ---
Patient Name: Yenny Cherry Procedure Date: 12/06/2024 6:20 AM Date of : 1960 Age: 64 Procedure: Colonoscopy Indications: Chronic diarrhea Providers: Jermaine Villegas DO Referring MD: Jo-Ann López Medicines: Monitored Anesthesia Care Patient Profile: This is a 64 year old female. Refer to note in patient chart for documentation of history and physical. Last Colonoscopy: more than 10 years ago. Complications: No immediate complications. Procedure: Pre-Anesthesia Assessment: - Prior to the procedure, a History and Physical was performed, and patient medications and allergies were reviewed. The patient is competent. The risks and benefits of the procedure and the sedation options and risks were discussed with the patient. All questions were answered and informed consent was obtained. Patient identification and proposed procedure were verified by the physician in the pre-procedure area. Mental Status Examination: alert and oriented. Airway Examination: normal oropharyngeal airway and neck mobility. Respiratory Examination: clear to auscultation. CV Examination: normal. Prophylactic Antibiotics: The patient does not require prophylactic antibiotics. Prior Anticoagulants: The patient has taken no anticoagulant or antiplatelet agents except for NSAID medication. ASA Grade Assessment: II - A patient with mild systemic disease. After reviewing the risks and benefits, the patient was deemed in satisfactory condition to undergo the procedure. The anesthesia plan was to use monitored anesthesia care (MAC). Immediately prior to administration of medications, the patient was re-assessed for adequacy to receive sedatives. The heart rate, respiratory rate, oxygen saturations, blood pressure, adequacy of pulmonary ventilation, and response to care were monitored throughout the procedure. The physical status of the patient was re-assessed after the procedure. After I obtained informed consent, the scope was passed under direct vision. Throughout the procedure, the patient's blood pressure, pulse, and oxygen saturations were monitored continuously. The colonoscope was introduced through the anus and advanced to the terminal ileum. The colonoscopy was performed without difficulty. The patient tolerated the procedure well. The quality of the bowel preparation was adequate. The terminal ileum, ileocecal valve, appendiceal orifice, and rectum were photographed. Scope In: 6:57:21 AM Scope Withdrawal Time 0 hours 9 minutes 57 seconds Scope Out: 7:12:36 AM Total Procedure Duration Time 0 hours 15 minutes 15 seconds Findings: The perianal and digital rectal examinations were normal. A 7 mm polyp was found in the transverse colon. The polyp was sessile. The polyp was removed with a cold biopsy forceps. Resection and retrieval were complete. Verification of patient identification for the specimen was done. Estimated blood loss: none. The colon (entire examined portion) appeared normal. Biopsies for histology were taken with a cold forceps from the right colon, left colon and rectum for evaluation of microscopic colitis. Verification of patient identification for the specimen was done. Estimated blood loss was minimal. The terminal ileum appeared normal. Biopsies were taken with a cold forceps for histology. Verification of patient identification for the specimen was done. Estimated blood loss was minimal. Impression: - One 7 mm polyp in the transverse colon, removed with a cold biopsy forceps. Resected and retrieved. - The entire examined colon is normal. Biopsied. - The examined portion of the ileum was normal. Biopsied. Recommendation: - Discharge patient to home. - Resume previous diet. - Continue present medications. - Await pathology results. - Repeat colonoscopy in 5 years for surveillance. Procedure Code(s): --- Professional --- 63597, Colonoscopy, flexible; with biopsy, single or multiple CPT copyright 2021 [employer]. All rights reserved. The codes documented in this report are preliminary and upon keg filler review may be revised to meet current compliance requirements. Jermaine Villegas DO 12/06/2024 7:16:47 AM This report has been signed electronically. Number of Addenda: 0 Note Initiated On: 12/06/2024 6:20 AM
--- NOTE | 2024-12-06 07:17 | OP.CCLET_ITS ---
12/06/2024 Jo-Ann López [address] [place] [address] Re : Colonoscopy procedure for Yenny Cherry Dear Dr. López This procedure was performed on Friday, December 06, 2024. My impressions and recommendations are as follows: Impressions : - One 7 mm polyp in the transverse colon, removed with a cold biopsy forceps. Resected and retrieved. - The entire examined colon is normal. Biopsied. - The examined portion of the ileum was normal. Biopsied. Recommendations : - Discharge patient to home. - Resume previous diet. - Continue present medications. - Await pathology results. - Repeat colonoscopy in 5 years for surveillance. My findings are described in the full procedure note, which is enclosed. If I can be of further assistance, please feel free to contact me at . Sincerely, Jermaine Villegas, 12/06/2024 7:16:47 AM This report has been signed electronically.
--- NOTE | 2024-12-06 07:21 | PCM.POST.ANE ---
Anesthesia: Postop Eval I Current Vital Signs Temperature: 98.1 F Pulse Rate: 68 Blood Pressure: 114/70 Respiratory Rate: 18 Pulse Ox: 100 Oxygen Delivery Method: Room Air Assessment Airway patent: Yes Spontaneous unlabored respirations: Yes Mental status: Awake nausea: No Vomiting: No Anesthesia Complication: No Fluid Hydration Crystalloid volume administer (ml): 10 Total IV fluid infused: 10 Progress Note Anesthesia document: Postop Eval 1 completed: Yes
--- NOTE | 2024-12-06 18:12 | POSTOPAN2_ITS ---
Anesthesia Postop Eval I Sum Postop Eval Completion status Anesthesia document: Postop Eval 1 completed: Yes Anesthesia Postop Eval I Summary Anesthesia Postop Eval I Summary: Anesthesia Postop Eval I: Assessment Summary Airway patent Yes 12/06/24 07:22 VICE PRESIDENT TAX.DBAK Spontaneous unlabored Yes 12/06/24 07:22 VICE PRESIDENT TAX.DBAK respirations Mental status Awake 12/06/24 07:22 VICE PRESIDENT TAX.DBAK nausea No 12/06/24 07:22 VICE PRESIDENT TAX.DBAK Vomiting No 12/06/24 07:22 VICE PRESIDENT TAX.DBAK Anesthesia Postop Eval I: Fluid Summary Crystalloid volume administer 10 12/06/24 07:22 VICE PRESIDENT TAX.DBAK (ml) Colloids volume administered ( ml) Blood Product volume administered (ml) Total IV fluid infused 10 12/06/24 07:22 VICE PRESIDENT TAX.DBAK Anesthesia Postop Eval I: Summary Notes Anesthesia Complication No 12/06/24 07:22 VICE PRESIDENT TAX.DBAK Anesthesia Complication Comment: Post-operative progress note Anesthesia: Postop Eval II Evaluation Mental status: Awake and Calm Pain Level: 0 nausea: No Vomiting: No Complications Anesthesia Complication: No
--- NOTE | 2024-12-06 18:12 | PCM.POSTANE2 ---
Anesthesia Postop Eval I Sum Postop Eval Completion status Anesthesia document: Postop Eval 1 completed: Yes Anesthesia Postop Eval I Summary Anesthesia Postop Eval I Summary: Anesthesia Postop Eval I: Assessment Summary Airway patent Yes 12/06/24 07:22 COAL TOWER OPERATOR.DBAK Spontaneous unlabored Yes 12/06/24 07:22 COAL TOWER OPERATOR.DBAK respirations Mental status Awake 12/06/24 07:22 COAL TOWER OPERATOR.DBAK nausea No 12/06/24 07:22 COAL TOWER OPERATOR.DBAK Vomiting No 12/06/24 07:22 COAL TOWER OPERATOR.DBAK Anesthesia Postop Eval I: Fluid Summary Crystalloid volume administer 10 12/06/24 07:22 COAL TOWER OPERATOR.DBAK (ml) Colloids volume administered ( ml) Blood Product volume administered (ml) Total IV fluid infused 10 12/06/24 07:22 COAL TOWER OPERATOR.DBAK Anesthesia Postop Eval I: Summary Notes Anesthesia Complication No 12/06/24 07:22 COAL TOWER OPERATOR.DBAK Anesthesia Complication Comment: Post-operative progress note Anesthesia: Postop Eval II Evaluation Mental status: Awake and Calm Pain Level: 0 nausea: No Vomiting: No Complications Anesthesia Complication: No
== END 2024-12-06 07:56 | disposition home or self-care (01) ==
LOC: EN 05:20 → AC 05:22
PROVIDERS: PCP Internal Medicine; Referring Provider Internal Medicine; Visit Provider Internal Medicine Gastroenterology
PROC: 0DJD8ZZ Inspection of Lower Intestinal Tract, Via Natural or Artificial Opening Endoscopic (ICD-10-PCS; CPT 45378; principal; 2024-12-06 06:25)
DX: D12.3 Benign neoplasm of transverse colon (principal); F31.9 Bipolar disorder, unspecified; J44.9 Chronic obstructive pulmonary disease, unspecified; K52.9 Noninfective gastroenteritis and colitis, unspecified; Z87.891 Personal history of nicotine dependence; R15.2 Fecal urgency; Z90.49 Acquired absence of other specified parts of digestive tract; Z79.899 Other long term (current) drug therapy
CPT/HCPCS: 45380; 88305; A4216

== ENCOUNTER → 2025-01-16 | Outpatient (CLI) | payer MEDICARE, SELFPAY ==
[2025-01-16 12:00] VITALS: PULSE 100; PULSE 105; PULSE 106; PULSE 109; PULSE 110; PULSE 112; PULSE 92; O2SAT 92; O2SAT 93; O2SAT 94; O2SAT 95; O2SAT 96; O2SAT 97; O2SAT 98
--- NOTE | 2025-01-17 10:33 | WT_ITS ---
PSN 6 Minute Walk Test 6 Minute Walk Test 6 Minute Walk Test: 6 Minute Walk Test PSN:6-Minute Walk Test Start: 01/16/25 12:13 Freq: Status: Active Protocol: [id number] Document 01/16/25 12:00 AEH (Rec: 01/16/25 12:17 AEH [id number]) 6 Minute Walk Test Date Performed 01/16/25 Time Performed 12:00 Height 5 ft 2 in Weight: 211 lb Weight in Pounds 211.[address]: Curtis Assistive device None used: Pre-test Oxygen Delivery Room Air Method Pulse Ox (%) 98 Pulse Rate (60-100 92 beats/min) Dyspnea Darcie Scale ( 0 0-10) Exertion Darcie Scale 6 (6-20) 1st minute Oxygen Delivery Room Air Method Pulse Ox (%) 94 Pulse Rate (60-100 109 H beats/min) 2nd minute Oxygen Delivery Room Air Method Pulse Ox (%) 93 Pulse Rate (60-100 106 H beats/min) 3rd minute Oxygen Delivery Room Air Method Pulse Ox (%) 96 Pulse Rate (60-100 110 H beats/min) 4th minute Oxygen Delivery Room Air Method Pulse Ox (%) 92 Pulse Rate (60-100 112 H beats/min) 5th minute Oxygen Delivery Room Air Method Pulse Ox (%) 95 Pulse Rate (60-100 105 H beats/min) 6th minute Oxygen Delivery Room Air Method Pulse Ox (%) 95 Pulse Rate (60-100 109 H beats/min) Dyspnea Darcie Scale ( 0.5 0-10) Exertion Darcie Scale 11 (6-20) Post-test Oxygen Delivery Room Air Method Pulse Ox (%) 97 Pulse Rate (60-100 100 beats/min) Full Laps Walked 17 Partial Lap, Number 17 of Tiles Walked Total Distance 1020 Walked (ft) Interpretation Interpretation: The patient ambulated 1020 feet over the course of 6 minutes beginning on room air without assistive devices. Pretesting oxygen saturation was noted to be 98% on room air. With ambulation, the yesenia oxygen saturation was 92%. This represents a significant exertional oxygen desaturation, consistent with a pulmonary limitation to exercise tolerance. Recommendations Recommendations: There is no indication for the use of supplemental oxygen at this time. Hood darryn, close interval follow-up is recommended, given the degree of oxygen desaturation noted during this study.
== END | disposition home or self-care (01) ==
LOC: PSN 11:32
PROVIDERS: PCP Internal Medicine; Referring Provider Nurse Practitioner Acute Care; Visit Provider Nurse Practitioner Acute Care
DX: R06.02 Shortness of breath (principal)
CPT/HCPCS: 94618

== ENCOUNTER 2025-02-16 11:46 | Emergency (ER) | payer MEDICARE, SELFPAY ==
[2025-02-16 11:49] VITALS: BP 137/83; PULSE 108; RESP 22; TEMP 36.7; O2SAT 97; BMI 41.5
--- NOTE | 2025-02-16 11:59 | EKG12_ITS ---
Test Reason : Blood Pressure : */* mmHG Vent. Rate : 87 BPM Atrial Rate : 87 BPM P-R Int : 122 ms QRS Dur : 80 ms QT Int : 364 ms P-R-T Axes : 48 4 33 degrees QTcB Int : 438 ms Normal sinus rhythm Normal ECG Confirmed by Job Reed ([id number]), video effects editor CORI CASTANEDA ([id number]) on 02/17/2025 12:45:00 PM Referred By: Lester Marroquin Confirmed By: Job Reed
[2025-02-16 12:24] LABS: Hematocrit 36.2 % (37-47); Hemoglobin 11.9 g/dL (12.0-15.0); Mean Corp Hgb Conc 32.9 g/dL (32-36); Mean Corpuscular Hgb 30.5 pg (27.0-32.0); Mean Corpuscular Volume 92.8 fL (81-99); Mean Platelet Vol. 9.5 fl (6.2-12.0); Platelet Count 262 K/mm3 (150-450); RBC Distribution Width CV 13.5 % (11.6-14.6); RBC Distribution Width SD 45.5 fl (35.1-43.9); White Blood Count 7.4 K/mm3 (4.4-11.0)
--- NOTE | 2025-02-16 12:32 | RAD_ITS ---
PROCEDURE: CHEST PA AND LATERAL 02/16/2025 REASON FOR EXAM: SHORTNESS OF BREATH AND PALPITATIONS TECHNIQUE: Frontal and lateral views of the chest. COMPARISON: None FINDINGS: Hardware: EKG electrodes are seen. Heart: The heart size is normal. Mediastinum: The mediastinal contour is unremarkable. Lungs: The lungs are clear. Bones: Degenerative changes are identified within the thoracic spine. RAD/Chest PA and Lateral IMPRESSION: NO ACUTE FINDINGS. Reading Location: [place] [id number]
--- NOTE | 2025-02-16 12:40 | EX.ED.DYSGE1 ---
HPI History of Present Illness Chief Complaint: Palpitations Detail of Chief Complaint: Patient presents with shortness breath and palpitations. She was sitting Informant: patient Onset/Context/Timing Onset: Today (10:30 AM) Context: Sudden Onset Timing: Continuous Quality: Palpitations and shortness of breath Location: Chest Current Severity: Mild Maximum Severity: Moderate Worsened by: Patient was slightly anxious when this started Relieved by: Nothing Associated Symptoms Associated Symptoms: No other symptoms Narrative Narrative: Patient is a 64-year-old woman. She has history of mitral valve prolapse. She has history of anxiety disorder. She has had palpitations due to her mitral valve prolapse. She has a remote history of She denies chest discomfort. She denies leg pain, swelling discoloration. She denies recent upper respiratory tract infectious symptoms. She denies GI symptoms. She denied chest pain and specifically pain with breathing. She does not have a cough. Past history of mitral valve prolapse, asthma, anxiety disorder, former smoker. Prior similar symptoms: Yes (Anxiety and mitral valve prolapse) Recent Illness/Hospitalization: No PFSH PFSH Medical History Loss of hearing Marijuana use Redness of skin Arthritis DDD (degenerative disc disease), lumbar DDD (degenerative disc disease), cervical Vertigo History of ulceration Former smoker On home oxygen therapy History of pain when walking Hx of reduction of nasal fracture Wears glasses Bipolar disorder Migraine headache Injury of head and neck History of IBS Shortness of breath on exertion Leg cramps History of edema History of echocardiogram History of stress test Depression Asthma MVP (mitral valve prolapse) Skin cancer COPD (chronic obstructive pulmonary disease) Pulmonary embolism Home Medications ?Medication ?Instructions ?Recorded ?Last Taken ?Type aripiprazole 5 mg tablet (Abilify) 5 mg PO DAILY 03/19/20 12/05/24 03:00 History furosemide 20 mg tablet 20 mg PO PRN PRN edema 03/17/22 Unknown History hydroxyzine pamoate 50 mg capsule 50 mg PO DAILY PRN PRN Anxiety 03/17/22 Unknown History albuterol sulfate 2.5 mg/3 mL 2.5 mg (3 mL) inhalation Q4H PRN 04/26/22 Unknown Rx (0.083 %) solution for nebulization #25 vials celecoxib 200 mg capsule (Celebrex) 200 mg PO BID inflamation 01/21/23 12/06/24 03:00 History gabapentin 300 mg capsule 300 mg PO TID 01/21/23 12/06/24 03:00 History tizanidine 2 mg capsule 2 mg PO Q8H PRN muscle spasticity 03/26/23 Unknown Rx #10 caps albuterol sulfate 90 mcg/actuation 2 puff inhalation Q4H PRN 06/30/23 Unknown Rx aerosol inhaler shortness of breath or wheezing #8.5 grams duloxetine 20 mg capsule,delayed 60 mg PO QAM depression 10/19/23 12/06/24 03:00 History release duloxetine 30 mg capsule,delayed 30 mg PO HS 10/19/23 12/06/24 03:00 History release fluticasone propionate 50 2 spray intranasal DAILY 10/19/23 12/05/24 History mcg/actuation nasal spray,suspension meclizine 25 mg tablet 25 mg PO 4X/DAY PRN PRN Dizziness 04/27/24 Unknown Rx #20 tabs tiotropium bromide 2.5 2 inh inhalation QDAY #1 ea 08/25/24 12/06/24 03:00 Rx mcg/actuation mist for inhalation (Spiriva Respimat) dicyclomine 10 mg capsule 10 mg PO 4X/DAY 10/24/24 12/06/24 03:00 History topiramate 50 mg tablet 25 mg PO TID migraines 10/24/24 12/06/24 03:00 History budesonide-formoterol HFA 160 2 inh inhalation DAILY 12/02/24 12/05/24 History mcg-4.5 mcg/actuation aerosol inhaler Allergy/AdvReac Type Severity Reaction Status Date / Time hydromorphone Allergy Other Verified 02/16/25 11:49 latex Allergy Itching Verified 02/16/25 11:49 Penicillins Allergy Hives Verified 02/16/25 11:49 Surgical History Hx of colonoscopy Hx of total knee arthroplasty History of surgery on lower extremity History of foot surgery History of hysterectomy History of cholecystectomy History of ureter repair Social History household members: none Smoking Status: Former smoker Tobacco: How many years used: 50 alcohol intake: former details: 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 substance use type: does not use ROS ROS ED Constitutional Constitutional ED: Denies chills, fever(s), subjective, sweats or weight loss Eyes Eyes: Denies blurry vision or change in vision ENT ENT ED: Denies ear pain, rhinorrhea or sore throat Cardiovascular Cardiovascular: Reports palpitations and racing heartbeat; Denies chest pain, orthopnea or paroxysmal nocturnal dyspnea Respiratory/Chest Respiratory/Chest: Reports dyspnea; Denies cough, dyspnea on exertion, orthopnea or paroxysmal nocturnal dyspnea Gastrointestinal Gastrointestinal: Denies abdominal pain, nausea or vomiting Musculoskeletal Musculoskeletal: Denies arthralgias, back pain or myalgias Integumentary Denies rash Neurologic Neurologic: Denies headache(s), paresthesias or weakness Psychiatric Psychiatric: Reports anxiety Endocrine Endocrinology: Denies cold intolerance or heat intolerance Hematologic/Lymphatic Hematologic/Lymphatic: Reports systems reviewed and no addt'l complaints, except as documented EXAM Physical Exam Const Vital Signs: 02/16/25 11:48 02/16/25 11:49 02/16/25 13:48 Temperature 98.1 F Temperature Source Oral Pulse Rate 108 H 84 Respiratory Rate 22 H 16 Respiratory Effort Normal Non-Labored Blood Pressure 137/83 H 105/67 Blood Pressure Mean 101 79 Pulse Ox 97 96 Oxygen Delivery Method Room Air Vital signs remarkable for high blood pressure, tachycardia and tachypnea. She not febrile or hypoxic. BMI is 41.6. Positive well nourished and well developed General Appearance ED: well developed; Negative for pallor HEENT Reports moist mucous membranes HEENT Narrative: Head is atraumatic no cephalic. Ears normal. Nares patent. Posterior pharynx normal. Uvula is midline. No deviation protrusion. Eyes PERRL and EOMs intact bilaterally General Eye ED: Negative for pale conjunctiva or scleral icterus Neck no lymphadenopathy, supple and no JVD Chest Wall inspection of chest normal and palpation of chest normal Resp normal respiratory effort and clear to auscultation bilaterally Cardio regular rhythm, S1 normal heart sound, S2 normal heart sound and no murmurs Rate: tachycardic GI normal to inspection, nondistended, normoactive bowel sounds, non-tender, non-distended and no masses; Negative for hepatosplenomegaly GI Narrative: There is no palp pulsatile mass. There is no abdominal bruit. Back/Spine no CVA tenderness Extremity normal to inspection Extremity Narrative: Tenderness anterior right leg. There is no asymmetry, swelling, discoloration, leg vein distention, palpable cords or tenderness along the distribution of the deep venous system. General Extremety ED: Negative for edema General Extremity: Negative for edema Neuro oriented x3 and CN's II-XII intact bilaterally Sensorium / Orientation: alert Motor Exam: strength 5/5 throughout Psych Mood & Affect: anxious Skin no rashes or lesions noted, no wounds and skin turgor normal General Skin Exam: elasticity normal; Negative for jaundice or pallor MDM MDM MDM Narrative Medical decision making narrative: Differential diagnosis is anxiety, mitral valve prolapse syndrome, need to entertain possibility of pulmonary embolus, doubt cardiac ischemia. Because of her shortness of breath chest x-ray was obtained to assess for infiltrate and/or pneumothorax. Pneumothorax unlikely. EKG to assess for cardiac ischemia and right heart strain. Appropriate blood work. History & Record Review Additional record(s) reviewed:: Prior outpatient record (Office H&P by Dr. Villegas December 06, 2024 for GI issues i.e. diarrhea. Pulmonary for asthma) and Prior ED visit (Seen September 2024 for plan of fasciitis and temper 2023 for chest pain that was noncardiac in April 2024 for mitral prolapse.) Lab Data Attestation: I reviewed the patient's lab results. Lab results narrative: CBC with differential reveals mild anemia with normal indices. This is chronic for patient. Patient's first troponin is less than 6. Glucose slightly elevated 113. CO2 and anion gap are normal. Second troponin is less than 6. This rules out cardiac etiology. Suspect this is due to anxiety related to her mitral valve prolapse. Labs: Laboratory Results - last 24 hr 02/16/25 02/16/25 12:12 14:16 WBC 7.4 RBC 3.90 L Hgb 11.9 L Hct 36.2 L MCV 92.8 MCH 30.5 MCHC 32.9 RDW Std Deviation 45.5 H RDW Coeff of Bruna 13.5 Plt Count 262 MPV 9.5 D-Dimer Quant (PE/DVT) 0.27 Sodium 141 Potassium 3.7 Chloride 108 Carbon Dioxide 22.9 Anion Gap 10 BUN 16 Creatinine 0.73 Estim Creat Clear Calc 87.61 Est GFR (MDRD) Non-Af 92 BUN/Creatinine Ratio 21.5 H Glucose 113 H Calcium 9.0 Troponin T High Sens < 6 Troponin T Hi Sens 2 Hr < 6 Radiography Chest X-Ray - ED: 2 View, Read by ED Physician (Interpreted by me at 1239), Unchanged, Normal, Heart, Lungs, Mediastinum, Bony Structures and No Acute Disease Diagnostic Testing: Clinical Impression(s) from Imaging Studies Chest X-Ray 02/16/25 12:32 IMPRESSION: NO ACUTE FINDINGS. Reading Location: [place] [id number] EKG Initial EKG: Attestation: I personally reviewed and interpreted this EKG as follows: Interpretation: Sinus Rhythm (Obtained with symptoms. Is normal. Rate is 87. VT interval is under 22 ms. QS duration 80 ms. QT interval is 3 and 64 ms. [place] is normal) Treatment and Re-Evaluation :: Patient was informed of results and discharged to home. Discharge Plan Triage Chief Complaint: Palpitations ED Provider: Lester Marroquin Dx/Rx/DC Orders Clinical Impression: Mitral valve prolapse, Sinus tachycardia seen on satellite project site monitor, Tachypnea, Anxiety reaction Instructions: ED Mitral Valve Prolapse Prescriptions: No Action albuterol sulfate 90 mcg/actuation HFA aerosol inhaler 2 puff inhalation Q4H PRN (Reason: shortness of breath or wheezing) Qty: 8.5 3RF Rx Instructions: administer with spacer fluticasone propionate 50 mcg/actuation spray,suspension 2 spray intranasal DAILY Patient Comments: USE 2 SPRAYS IN EACH NOSTRIL ONCE DAILY. RINSE MOUTH AFTER USE. duloxetine 30 mg capsule,delayed release(DR/EC) 30 mg PO HS Patient Comments: take 1 capsule by mouth once daily at bedtime Rx Instructions: 60 in AM + 30 in Evening Spiriva Respimat 2.5 mcg/actuation mist 2 inh inhalation QDAY Qty: 1 6RF Rx Instructions: administer at approximately the same time(s) each day dicyclomine 10 mg capsule 10 mg PO 4X/DAY aripiprazole [Abilify] 5 mg tablet 5 mg PO DAILY topiramate 50 mg tablet 25 mg PO TID hydroxyzine pamoate 50 mg capsule 50 mg PO DAILY PRN PRN (Reason: Anxiety) Patient Comments: take 1 capsule by mouth four times a day if needed for anxiety furosemide 20 mg tablet 20 mg PO PRN PRN (Reason: edema) Patient Comments: take 1/2 to 1 tablet by mouth once daily if needed for SWELLING in feet celecoxib [Celebrex] 200 mg capsule 200 mg PO BID gabapentin 300 mg capsule 300 mg PO TID duloxetine 20 mg capsule,delayed release(DR/EC) 60 mg PO QAM Rx Instructions: 60 in AM + 30 in Evening albuterol sulfate 2.5 mg /3 mL (0.083 %) solution for nebulization 2.5 mg inhalation Q4H PRN Qty: 25 2RF Rx Instructions: Use q4 hours and PRN for wheezing tizanidine 2 mg capsule 2 mg PO Q8H PRN (Reason: muscle spasticity) Qty: 10 0RF meclizine 25 mg tablet 25 mg PO 4X/DAY PRN PRN (Reason: Dizziness) Qty: 20 0RF budesonide-formoterol 160-4.5 mcg/actuation HFA aerosol inhaler 2 inh inhalation DAILY Primary Care Provider: Jo-Ann López Referrals: Jo-Ann López MD [Primary Care Provider] - As Needed Print Language: Telugu Disposition Disposition: Home, Self Care
[2025-02-16 12:46] LABS: Anion Gap 10 (5-15); BUN 16 mg/dL (4-19); BUN/Creat Ratio 21.5 RATIO (10-20); Carbon Dioxide 22.9 mmol/L (21.0-32.0); Chloride 108 mmol/L (98-108); Creatinine, Serum 0.73 mg/dL (0.70-1.20); EST Glomerular Filtration Rate 92 (>60); Estimated Creatinine Clearance 87.61 ml/min (50-250); Glucose 113 mg/dL (70-99); Potassium 3.7 mmol/L (3.3-5.1); Sodium Level 141 mmol/L (133-145); Troponin T High Sensitivity < 6 ng/L (<=14)
[2025-02-16 13:09] LABS: D-Dimer Quantitative (DVT/PE) 0.27 FEU/ug/m (0.27-0.49)
[2025-02-16 13:48] VITALS: BP 105/67; PULSE 84; RESP 16; O2SAT 96
[2025-02-16 14:56] LABS: Troponin T High Sens 2 HR < 6 ng/L (<=14)
[2025-02-16 15:00] VITALS: BP 110/74; PULSE 79; RESP 16; O2SAT 99
[2025-02-16 15:10] VITALS: BP 110/74; PULSE 79; RESP 16; TEMP 36.6; O2SAT 99
== END 2025-02-16 15:13 | disposition home or self-care (01) ==
PROVIDERS: Emergency Provider Emergency Medicine; PCP Internal Medicine; Referring Provider Emergency Medicine; Visit Provider Emergency Medicine
DX: I34.1 Nonrheumatic mitral (valve) prolapse (principal); F31.9 Bipolar disorder, unspecified; J44.9 Chronic obstructive pulmonary disease, unspecified; R00.0 Tachycardia, unspecified; R06.82 Tachypnea, not elsewhere classified; F41.9 Anxiety disorder, unspecified; G43.909 Migraine, unspecified, not intractable, without status migrainosus; Z86.711 Personal history of pulmonary embolism; Z79.899 Other long term (current) drug therapy; Z87.891 Personal history of nicotine dependence
CPT/HCPCS: 71046; 80048; 84484; 85027; 85379; 93005; 99284; A4216

== ENCOUNTER → 2025-03-08 | Outpatient (CLI) | payer MEDICARE, SELFPAY | END | disposition home or self-care (01) | LOC: PSN 08:20 | PROVIDERS: PCP Internal Medicine; Referring Provider Nurse Practitioner Acute Care; Visit Provider Nurse Practitioner Acute Care | DX: R06.02 Shortness of breath (principal) | CPT/HCPCS: 94060; 94726; 94729 ==

== ENCOUNTER 2025-04-10 13:00 | Emergency (ER) | payer MEDICARE, SELFPAY ==
[2025-04-10] VITALS (9 sets, daily range): BP systolic 110–141; BP diastolic 52–128; PULSE 76–91; RESP 16–26; TEMP 36.6–36.9; O2SAT 93–100; BMI 41.9
--- NOTE | 2025-04-10 14:08 | ED.VIS.DYS ---
HPI History of Present Illness Chief Complaint: Shortness of Breath [facility] Medical History (Reviewed 03/21/25 @ 10:59 by Julia Coello [employer], [employer]-C) Loss of hearing Marijuana use Redness of skin Arthritis DDD (degenerative disc disease), lumbar DDD (degenerative disc disease), cervical Vertigo History of ulceration Former smoker On home oxygen therapy History of pain when walking Hx of reduction of nasal fracture Wears glasses Bipolar disorder Migraine headache Injury of head and neck History of IBS Shortness of breath on exertion Leg cramps History of edema History of echocardiogram History of stress test Depression Asthma MVP (mitral valve prolapse) Skin cancer COPD (chronic obstructive pulmonary disease) Pulmonary embolism Home Medications ?Medication ?Instructions ?Recorded ?Last Taken ?Type hydroxyzine pamoate 50 mg capsule 50 mg PO Q6H PRN Anxiety 03/17/22 Unknown History albuterol sulfate 90 mcg/actuation 2 puff inhalation Q4H PRN 06/30/23 04/10/25 Rx aerosol inhaler shortness of breath or wheezing #8.5 grams duloxetine 20 mg capsule,delayed 60 mg PO QAM depression 10/19/23 04/10/25 History release duloxetine 30 mg capsule,delayed 30 mg PO HS 10/19/23 12/06/24 03:00 History release fluticasone propionate 50 2 spray intranasal DAILY 10/19/23 04/10/25 History mcg/actuation nasal spray,suspension tiotropium bromide 2.5 2 inh inhalation QDAY #1 ea 08/25/24 12/06/24 03:00 Rx mcg/actuation mist for inhalation (Spiriva Respimat) Held on 04/10/25. Instructions: PT CURRENTLY USING ADVAIR topiramate 50 mg tablet 50 mg PO TID migraines 10/24/24 04/10/25 History aripiprazole 15 mg tablet 15 mg PO QDAY 03/21/25 04/10/25 History cetirizine 10 mg tablet 10 mg PO DAILY PRN allergy 03/21/25 Unknown Rx symptoms #90 tabs gabapentin 300 mg capsule 300 mg PO Q6H 03/21/25 04/10/25 History benzonatate 100 mg capsule 200 mg PO TID PRN PRN cough 04/10/25 Unknown History doxycycline monohydrate 100 mg 100 mg PO BID 04/10/25 04/10/25 History capsule fluticasone 250 mcg-salmeterol 50 1 inh inhalation BID 04/10/25 04/10/25 History mcg/dose blistr powdr for inhalation (Advair Diskus) Allergy/AdvReac Type Severity Reaction Status Date / Time hydromorphone Allergy Other Verified 04/10/25 13:01 latex Allergy Itching Verified 04/10/25 13:01 Penicillins Allergy Hives Verified 04/10/25 13:01 Surgical History (Reviewed 03/21/25 @ 10:59 by Julia Coello [employer], [employer]-C) Hx of colonoscopy Hx of total knee arthroplasty History of surgery on lower extremity History of foot surgery History of hysterectomy History of cholecystectomy History of ureter repair Social History (Reviewed 03/21/25 @ 10:59 by Julia Coello [employer], [employer]-C) household members: none Smoking Status: Former smoker Tobacco: How many years used: 50 alcohol intake: former details: 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 substance use type: does not use EXAM Physical Exam Const Vital Signs: 04/10/25 13:00 04/10/25 13:12 04/10/25 14:02 Temperature 97.8 F 98.4 F Temperature Source Oral Temporal Pulse Rate 91 81 Respiratory Rate 26 H 16 Respiratory Effort Labored Respiratory Depth Normal Respiratory Pattern Normal Blood Pressure 141/128 H 114/52 L Blood Pressure Mean 132 72 Pulse Ox 97 96 Oxygen Delivery Method Room Air Room Air Room Air 04/10/25 14:35 04/10/25 15:00 04/10/25 15:52 Temperature Temperature Source Pulse Rate 80 76 Respiratory Rate 20 H 17 Respiratory Effort Respiratory Depth Respiratory Pattern Blood Pressure 123/75 H Blood Pressure Mean 91 Pulse Ox 98 95 Oxygen Delivery Method Room Air Room Air 04/10/25 16:00 Temperature Temperature Source Pulse Rate 79 Respiratory Rate 18 Respiratory Effort Respiratory Depth Respiratory Pattern Blood Pressure 126/90 H Blood Pressure Mean 102 Pulse Ox 100 Oxygen Delivery Method MDM MDM MDM Narrative Medical decision making narrative: HISTORY OF PRESENT ILLNESS: Chief complaint: Shortness of breath, cough, leg swelling 64-year-old female history of of tobacco abuse, COVID-19, asthma, marijuana use, COPD. Notes 8 days of symptoms. Notes chest pain. Notes pain under the right rib. No she is not on anticoagulation. Notes she stopped smoking 2 years ago. Denies fever. Notes a nonproductive cough. Notes leg swelling. Denies orthopnea. Denies bleeding diathesis. Denies vomiting or other sick contacts. No chest pain and shortness of breath are exertional. Not pleuritic in nature. REVIEW OF SYSTEMS: Pertinent positives: As per HPI Pertinent negatives: PHYSICAL EXAM: Nursing triage notes reviewed, Vital signs reviewed Constitutional: please see [facility] HENT: MMM Eyes: Pupils equal round and reactive to light, Extraocular muscles intact Neck: No stridor, no JVD, full neck ROM Lungs: Coarse breath sounds, slight wheezing, no increased work of breathing, no conversational dyspnea, no accessory muscle use, no nasal flaring. No respiratory distress noted Heart: Regular rate and rhythm, No murmurs, No rubs and No gallops, 2+ distal pulses (radial, femoral, posterior tibial) in all extremities Abdomen: Soft, there is no tenderness, rigidity, rebound or guarding, no obvious peritoneal signs, no palpable pulsatile abdominal masses, no auscultated abdominal bruit : No CVAT Extremities: No edema Neuro: No new focal neurological deficits, cranial nerves II through XII intact, 5/5 strength in all present extremities. Intact sensation to light touch in all present extremities, 2+ reflexes bilateral patella tendons. Skin: No rash or lesions noted MEDICAL DECISION MAKING: Chief Complaint: please see [facility] External records reviewed: Reviewed prior cardiovascular testing, no recent stress test noted Factors affecting care: as per HPI Social determinants of health: tobacco use history History obtained from others: none Consults: none [facility] Narrative: The patient was initially tachypneic with respiratory 26 otherwise saturating 97% on room air and afebrile and nontoxic-appearing. Exam without focal lung findings I considered the following differential diagnosis: COPD exacerbation, CHF exacerbation, ACS, arrhythmia, anemia, electrolyte disturbance, pulmonary embolus I obtained a broad lab and imaging workup to further elucidate etiology patient complaints specifically ruling out PE ACS etc. Initially treated the patient empirically with 1 breathing treatment (DuoNeb) ALL IMAGES (IF OBTAINED) HAVE BEEN PERSONALLY REVIEWED AND INTERPRETED BY MYSELF. CT of the chest showed no evidence of PE but did show evidence of pneumonia High-sensitivity troponin is negative, no evidence of myocardial ischemiax2, patient was by high-sensitivity troponin protocol CBC without leukocytosis, severe anemia, no thrombocytopenia. BMP without evidence of significant electrolyte abnormalities, no anion gap, no acute kidney injury. BNP negative for signs of heart The synthesis of the patient's history, physical exam, labs images suggest likely pneumonia exacerbating her lung COPD as she is already on doxycycline. Encouraged to continue. Patient ambulated in the emerged part with a pulse ox 97%. Is acceptable for discharge. There is no indication for admission at this time. Likely admission with the patient greater risk than benefit. Strict return precautions were discussed The patient and/or family, caregivers express understanding. The patient and/or family, caregivers agrees with the plan. Shared decision making: I will have a discussion with the patient and or visitors regarding risk/benefits of further testing or admission. They will be made aware of of the risk/benefits inherent in this decision they will be given the opportunity to voice understanding. Total critical care time today provided was at least 0 minutes. This excludes separately billable procedures. Critical care time (if documented) is secondary to the patient having high probability of clinically significant/life threatening deterioration in the patient's condition which required my urgent intervention. Impression: 1. [facility] pneumonia 2. Dyspnea exertion 3. History of COPD Dispo: Discharge home This note was generated with [facility] dictation software. It may contain incorrect words, spelling, and punctuation that were not noted in review of the chart prior to signing. Lab Data Labs: Laboratory Results - last 24 hr 04/10/25 04/10/25 13:23 15:22 WBC 8.7 RBC 3.98 L Hgb 12.2 Hct 37.1 MCV 93.2 MCH 30.7 MCHC 32.9 RDW Std Deviation 47.9 H RDW Coeff of Bruna 14.1 Plt Count 298 MPV 9.7 Immature Gran % (Auto) 0.600 Neut % (Auto) 61.7 Lymph % (Auto) 29.4 [place] % (Auto) 5.5 Eos % (Auto) 2.1 Baso % (Auto) 0.7 Absolute Neuts (auto) 5.4 Absolute Lymphs (auto) 2.56 Nucleated RBC % 0 Sodium 140 Potassium 4.3 Chloride 108 Carbon Dioxide 19.5 L Anion Gap 13 BUN 17 Creatinine 0.68 L Estim Creat Clear Calc 94.53 Est GFR (MDRD) Non-Af 97 BUN/Creatinine Ratio 25.1 H Glucose 98 Calcium 9.3 Troponin T High Sens < 6 Troponin T Hi Sens 2 Hr 7 NT pro BNP II 160 Radiography Diagnostic Testing: Clinical Impression(s) from Imaging Studies Chest CTA 04/10/25 14:26 IMPRESSION: No evidence of pulmonary embolism. Focal area of ground-glass appearance in the posterior lateral aspect of the right upper lobe as described. This may represent a focal area of possible early infiltrate. Reading Location: [place] [id number] Discharge Plan Triage Chief Complaint: Shortness of Breath ED Provider: Anil Prieto Dx/Rx/DC Orders Prescriptions: No Action albuterol sulfate 90 mcg/actuation HFA aerosol inhaler 2 puff inhalation Q4H PRN (Reason: shortness of breath or wheezing) Qty: 8.5 3RF Rx Instructions: administer with spacer fluticasone propionate 50 mcg/actuation spray,suspension 2 spray intranasal DAILY Patient Comments: USE 2 SPRAYS IN EACH NOSTRIL ONCE DAILY. RINSE MOUTH AFTER USE. duloxetine 30 mg capsule,delayed release(DR/EC) 30 mg PO HS Patient Comments: take 1 capsule by mouth once daily at bedtime Rx Instructions: 60 in AM + 30 in Evening Spiriva Respimat 2.5 mcg/actuation mist 2 inh inhalation QDAY Qty: 1 6RF Rx Instructions: administer at approximately the same time(s) each day aripiprazole 15 mg tablet 15 mg PO QDAY cetirizine 10 mg tablet 10 mg PO DAILY PRN (Reason: allergy symptoms) Qty: 90 3RF topiramate 50 mg tablet 50 mg PO TID hydroxyzine pamoate 50 mg capsule 50 mg PO Q6H PRN (Reason: Anxiety) Patient Comments: take 1 capsule by mouth four times a day if needed for anxiety duloxetine 20 mg capsule,delayed release(DR/EC) 60 mg PO QAM Rx Instructions: 60 in AM + 30 in Evening gabapentin 300 mg capsule 300 mg PO Q6H benzonatate 100 mg capsule 200 mg PO TID PRN PRN (Reason: cough) doxycycline monohydrate 100 mg capsule 100 mg PO BID fluticasone propion-salmeterol [Advair Diskus] 250-50 mcg/dose blister with device 1 inh inhalation BID Primary Care Provider: Jennifer Landrum NP Referrals: Jo-Ann López MD [Med Staff - Customer Marketing Assistant] - Print Language: Welsh
--- NOTE | 2025-04-10 14:26 | EKG12_ITS ---
Test Reason : SOB Blood Pressure : */* mmHG Vent. Rate : 92 BPM Atrial Rate : 92 BPM P-R Int : 126 ms QRS Dur : 80 ms QT Int : 354 ms P-R-T Axes : 51 2 38 degrees QTcB Int : 437 ms Normal sinus rhythm Normal ECG Confirmed by Job Reed ([id number]), videotape editor YOU MUSTAFA ([id number]) on 04/11/2025 11:13:47 AM Referred By: LORETO Confirmed By: Job Reed
--- NOTE | 2025-04-10 14:26 | CT_ITS ---
PROCEDURE: CTA CHEST W/WO CONTRAST 04/10/2025 REASON FOR EXAM: SOB, HX OF PE NO AC TECHNIQUE: CTA axial imaging of the chest with intravenous contrast. Multiplanar and multisequence images were obtained. PATIENT PREPARATION: Per protocol One or more dose reduction techniques were used (e.g., Automated exposure control, adjustment of the mA and/or kV according to patient size, use of iterative reconstruction technique). CONTRAST: Isovue-300 VOLUME: 100 mL RADIATION DOSE SUMMARY: CTDlvol: 9.5 mGy DLP: 352.03 mGycm COMPARISON: Prior chest radiograph dated February 16, 2025. FINDINGS: Hardware: EKG electrodes are seen. Lymph nodes: Small benign-appearing bilateral axillary lymph nodes. Tiny mediastinal lymph nodes. Heart: Unremarkable Thoracic Aorta: Unremarkable Pulmonary Vessels: No pulmonary embolism is seen. Lungs and Airways: Mild degree of ground-glass appearance is seen along the lateral posterior aspect of the right upper lobe as seen on axial image number 169 this may represent a focal area of possible early infiltrate. No airspace disease is seen. Pleura: No pleural effusion. Upper Abdomen: Mild degree of fatty infiltration of the liver. Bones: Mild degenerative changes. CT/CTA Chest W/WO Contrast IMPRESSION: No evidence of pulmonary embolism. Focal area of ground-glass appearance in the posterior lateral aspect of the ri ght upper lobe as described. This may represent a focal area of possible early infiltrate. Reading Location: [place] [id number]
[2025-04-10 14:45] LABS: Absolute Lymphocyte Count 2.56 X10^3/uL (0.83-4.51); Absolute Neutrophil Count 5.4 X10^3/uL (2.0-7.7); Basophil# 0.06 X10^3/uL; Basophil% 0.7 % (0-1); Eosinophil# 0.18 X10^3/uL; Eosinophils% 2.1 % (0-5); Hematocrit 37.1 % (37-47); Hemoglobin 12.2 g/dL (12.0-15.0); Lymphocyte # 2.56 X10^3/ul (0.83-4.51); Lymphocyte % 29.4 % (19-41); Mean Corp Hgb Conc 32.9 g/dL (32-36); Mean Corpuscular Hgb 30.7 pg (27.0-32.0); Mean Corpuscular Volume 93.2 fL (81-99); Mean Platelet Vol. 9.7 fl (6.2-12.0); Monocyte# 0.48 X10^3/uL; Monocyte% 5.5 % (0-10); NRBC Flagged by Analyzer 0 % (0-5); Neutrophil # 5.39 X10^3/uL (2.7-7.7); Neutrophil % 61.7 % (47-70); Platelet Count 298 K/mm3 (150-450); RBC Distribution Width CV 14.1 % (11.6-14.6); RBC Distribution Width SD 47.9 fl (35.1-43.9); Red Blood Count 3.98 M/mm3 (4.2-5.4); White Blood Count 8.7 K/mm3 (4.4-11.0)
[2025-04-10 15:19] LABS: Anion Gap 13 (5-15); BUN 17 mg/dL (4-19); BUN/Creat Ratio 25.1 RATIO (10-20); Calcium,Total 9.3 mg/dL (7.6-11.0); Carbon Dioxide 19.5 mmol/L (21.0-32.0); Chloride 108 mmol/L (98-108); Creatinine, Serum 0.68 mg/dL (0.70-1.20); EST Glomerular Filtration Rate 97 (>60); Estimated Creatinine Clearance 94.53 ml/min (50-250); Glucose 98 mg/dL (70-99); Potassium 4.3 mmol/L (3.3-5.1); Pro- Brain NATRIURETIC PEPTIDE 160 pg/mL (<=900); Sodium Level 140 mmol/L (133-145); Troponin T High Sensitivity < 6 ng/L (<=14)
[2025-04-10] MEDS: Ketorolac 15 MG/ML Vial IV (16:06)
--- NOTE | 2025-04-10 16:23 | ED.RN ---
1615: LAB CALLED ABOUT TROPONIN 2HR NOT BEING RAN THAT WAS SENT AT 1522. RESPONSE, WE WILL LOOK FOR IT
[2025-04-10 16:36] LABS: Troponin T High Sens 2 HR 7 ng/L (<=14)
== END 2025-04-10 17:05 | disposition home or self-care (01) ==
PROVIDERS: Emergency Provider Emergency Medicine; PCP Internal Medicine; Visit Provider Emergency Medicine
DX: R06.00 Dyspnea, unspecified (principal); F31.9 Bipolar disorder, unspecified; J44.9 Chronic obstructive pulmonary disease, unspecified; M79.89 Other specified soft tissue disorders; Z87.891 Personal history of nicotine dependence; Z85.828 Personal history of other malignant neoplasm of skin; Z79.899 Other long term (current) drug therapy; Z79.51 Long term (current) use of inhaled steroids; Z90.710 Acquired absence of both cervix and uterus; Z90.49 Acquired absence of other specified parts of digestive tract; R05.9 Cough, unspecified; J18.9 Pneumonia, unspecified organism
CPT/HCPCS: 71275; 80048; 83880; 84484; 85025; 93005; 96374; 99284; Q9967; A4216

== ENCOUNTER → 2025-07-31 | Outpatient (CLI) | payer MEDICARE, SELFPAY ==
--- OUTSIDE RECORDS SUMMARY | 2025-07-28 16:21 | XMS RPT_ITS ---
Author Name [employer] Organization OHIP Care Team Providers Care Classroom Monitor Name Role Phone KORI HUNT Attending Unavailable TALAMPAS, SOTO D Primary Care Unavailable KORI HUNT Referring Unavailable TALAMPAS, SOTO D Primary Care Unavailable NEHA SHEPPARD Attending Unavailable TALAMPAS, SOTO D Primary Care Unavailable ADRIAN LÓPEZ Attending Unavailable TALAMPAS, SOTO D Primary Care Unavailable LÓPEZFELYI Referring Unavailable TALAMPAS, SOTO D Primary Care Unavailable TALAMPAS, SOTO D Primary Care Unavailable NEHA SHEPPARD Attending Unavailable TALAMPAS, SOTO D Primary Care Unavailable TALAMPAS, SOTO D Attending Unavailable TALAMPAS, SOTO D Primary Care Unavailable LÓPEZADRIAN Attending Unavailable LÓPEZ, ADRIAN Referring Unavailable VALARIE, NEHA Referring Unavailable TALAMPAS, SOTO D Primary Care Unavailable TALAMPAS, SOTO D Primary Care Unavailable SELF Referring Unavailable TALAMPAS, SOTO D Attending Unavailable TALAMPAS, SOTO D Primary Care Unavailable TALAMPAS, SOTO D Referring Unavailable TALAMPAS, SOTO D Primary Care Unavailable SELF Referring Unavailable TALAMPAS, SOTO D Primary Care Unavailable TALAMPAS, SOTO D Attending Unavailable TALAMPAS, SOTO D Primary Care Unavailable TALAMPAS, SOTO D Primary Care Unavailable LÓPEZADRIAN Attending Unavailable NEHA SHEPPARD Attending Unavailable TALAMPAS, SOTO D Primary Care Unavailable MILVIA KIM Attending Unavailable TALAMPAS, SOTO D Primary Care Unavailable NEHA SHEPPARD Attending Unavailable TALAMPAS, SOTO D Primary Care Unavailable PROBLEMS DATE TYPE CONDITION / CODE ATTENDING STATUS [facility] 12/30/2023 Active Vitamin D defici ency / E55.9(ICD-10) TALAMPAS, SOTO D Active [facility] 06/11/2022 Active History of subst ance abuse (HCC) / F19.11(ICD-10) SOTO RUSHING Active [facility] 09/01/2019 Active Chronic bilatera l low back pain with bilateral sciatica / M54.42(ICD-10) SOTO RUSHING Active [facility] 09/01/2019 Active Chronic bilatera l low back pain with bilateral sciatica / M54.41(ICD-10) SOTO RUSHING Active [facility] 09/01/2019 Active Chronic bilatera l low back pain with bilateral sciatica / G89.29(ICD-10) SOTO RUSHING Active [facility] 04/02/2012 Active Moderate persist ent asthma without complication (HCC) / J45.40(ICD-10) SOTO RUSHING Active [facility] 07/28/2025 Active Medicare annual wellness visit, subsequent / Z00.00(ICD-10) SOTO RUSHING Active [facility] 07/28/2025 Active Class 2 obesity due to excess calories with body mass index (BMI) of 39.0 to 39.9 in adult, unspecified whether serious comorbidity present / E66.812(ICD-10) SOTO RUSHING Active [facility] 07/28/2025 Active Class 2 obesity due to excess calories with body mass index (BMI) of 39.0 to 39.9 in adult, unspecified whether serious comorbidity present / E66.09(ICD-10) SOTO RUSHING Active [facility] 07/28/2025 Active Class 2 obesity due to excess calories with body mass index (BMI) of 39.0 to 39.9 in adult, unspecified whether serious comorbidity present / Z68.39(ICD-10) SOTO RUSHING Active [facility] 07/28/2025 Active Encounter for immunization / Z23(ICD-10) SOTO RUSHING [facility] 07/28/2025 Active Encounter for lo ng-term current use of medication / Z79.899(ICD-10) SOTO RUSHING Active [facility] 04/02/2012 Active Migraine without status migrainosus, not intractable, unspecified migraine type / G43.909(ICD-10) NEHA SHEPPARD Active [facility] 05/08/2025 Active Leg swelling / M79.89(ICD-10) NEHA SHEPPARD Active [facility] 05/08/2025 Active Bilateral swelli ng of feet / M79.89(ICD-10) NEHA SHEPPARD Active [facility] 05/08/2025 Active Class 3 severe o besity due to excess calories with body mass index (BMI) of 40.0 to 44.9 in adult, unspecified whether serious comorbidity present (HCC) / E66.813(ICD-10) NEHA SHEPPARD Active [facility] 05/08/2025 Active Class 3 severe o besity due to excess calories with body mass index (BMI) of 40.0 to 44.9 in adult, unspecified whether serious comorbidity present (HCC) / Z68.41(ICD-10) NEHA SHEPPARD Active [facility] 04/18/2025 Active Pneumonia of rig ht upper lobe due to infectious organism / J18.9(ICD-10) ADRIAN LÓPEZ Active [facility] 04/05/2025 Active Mild asthma with exacerbation, unspecified whether persistent (HCC) / J45.901(ICD-10) NEHA SHEPPARD Active [facility] 04/05/2025 Active Sinobronchitis / J32.9(ICD-10) NEHA SHEPPARD Active [facility] 04/05/2025 Active Sinobronchitis / J40(ICD-10) NEHA SHEPPARD Active [facility] 03/30/2025 Active Rhonchi / R09.89(ICD-10) KORI HUNT Active [facility] 03/30/2025 Active Viral syndrome / B34.9(ICD-10) KORI HUNT Active [facility] 03/30/2025 Active History of asthm a / Z87.09(ICD-10) KORI HUNT Active [facility] 03/14/2025 Active Left foot pain / M79.672(ICD-10) NEHA SHEPPARD Active [facility] 03/14/2025 Active Right foot pain / M79.671(ICD-10) NEHA SHEPPARD Active [facility] 03/14/2025 Active Plantar fasciiti s of left foot / M72.2(ICD-10) NEHA SHEPPARD Active [facility] 01/04/2025 Active Kidney stone / N20.0(ICD-10) NEHA SHEPPARD Active [facility] 01/04/2025 Active Mild asthma with exacerbation, unspecified whether persistent / J45.901(ICD-10) NEHA SHEPPARD Active [facility] 12/19/2024 Active Encounter for th erapeutic drug monitoring / Z51.81(ICD-10) NA Active [facility] 12/19/2024 Active IFG (impaired fa sting glucose) / R73.01(ICD-10) NA Active [facility] 12/19/2024 Active Screening for th yroid disorder / Z13.29(ICD-10) NA Active [facility] 10/03/2024 Active Encounter for ut reening mammogram for breast cancer / Z12.31(ICD-10) NA Active [facility] 09/19/2024 Active History of cholecystectomy / Z90.49(ICD-10) ADRIAN LÓPEZ Active [facility] 09/19/2024 Active Chronic diarrhea / K52.9(ICD-10) ADRIAN LÓPEZ Active [facility] 09/19/2024 Active Nausea / R11.0(ICD-10) ADRIAN LÓPEZ Ac tive [facility] 08/10/2024 Active Skin lesion of c heek / L98.9(ICD-10) SOTO RUSHING Active [facility] 08/10/2024 Active Skin lesion of f ángela / L98.9(ICD-10) SOTO RUSHING Active [facility] 08/10/2024 Active History of basal cell cancer / Z85.828(ICD-10) SOTO RUSHING Active [facility] PROCEDURES No Procedure Records Found RESULTS PROGRESS Observed: 05/08/2025 2:27 PM Status: COMPLETED Source: [facility] HNO ID: [id number] Author: NEHA SHEPPARD APRN.[facility] Service: ? Author Type: Nurse Practitioner Type: Progress Notes Filed: 05/08/2025 15:10 Note Text: SUBJECTIVE Yenny Marshall is a 64 year old female here today for a check up on her medical problems. Chief Complaint Patient presents with: Weight Problem Pain: complaints of pain and swelling in legs. States is having trouble moving due to leg pain. HPI Yenny Marshall is a 64-year-old female with a history of obesity, presenting with bilateral leg pain and difficulty losing weight. Yenny reports persistent bilateral leg pain and discomfort, which she describes as a feeling of swelling and fullness, particularly when ambulating. She has been wearing compression stockings consistently for the past 10 days and taking Lasix 20 mg daily as needed, but continues to experience significant discomfort. She notes that the pain radiates from her legs down to her feet and is associated with a sensation of fluid retention. She is uncertain if the symptoms are exacerbated by the heat. Yenny has been actively trying to lose weight and has made several dietary changes, including drinking only water and unsweetened tea, consuming primarily vegetables, and reducing portion sizes. Despite these efforts, she reports minimal weight loss and expresses frustration with her progress. She is concerned that her current medications, including Abilify and gabapentin, may be contributing to her difficulty losing weight. She also inquires about the possibility of having fibromyalgia due to her chronic pain. Yenny is currently taking topiramate 50 mg in the morning and 100 mg at bedtime, and uses tizanidine occasionally, taking half a tablet before sleep as needed. She remains physically active, engaging in daily activities such as watering plants, assisting a neighbor with cancer, and performing housework. She also works in a job that requires wearing steel-toed boots, which she believes may contribute to her leg discomfort. Her medications were reviewed today and her list is now up to date. Medications Current Outpatient Medications Medication Sig gabapentin (NEURONTIN) 300 mg capsule Take 1 capsule by mouth every morning AND 2 capsules daily at bedtime AND 1 capsule every afternoon. Do all this for 180 days. As directed. fluticasone (FLONASE) 50 mcg/actuation nasal spray Use 2 sprays in each nostril once daily. Rinse mouth after use. budesonide-formoterol (SYMBICORT) 160-4.5 mcg/actuation inhaler Inhale 1 puff as instructed two times a day. cetirizine (ZYRTEC) 10 mg tablet Take 10 mg by mouth once daily. albuterol HFA (PROAIR HFA) 90 mcg/actuation inhaler Inhale 2 puffs as instructed every 4 hours as needed. DULoxetine (CYMBALTA) 30 mg capsule Take 1 capsule by mouth every evening. DULoxetine (CYMBALTA) 60 mg capsule Take 1 capsule by mouth every morning. SUMAtriptan (IMITREX) 100 mg tablet Take 1 tablet by mouth as needed for migraine headache (see administration instructions). May repeat dose after 2 hours if needed. Maximum daily dose is 200 mg per day.TAKE 1 TABLET BY MOUTH AT ONSET OF HEADACHE MAY REPEAT IN 2 HOURS IF HEADACHE PERSISTS MAXIMUM DAILY DOSE OF 2 TABLETS ( 200 MILLIGRAMS ) EVERY 24 HOURS celecoxib (CELEBREX) 200 mg capsule Take 1 capsule by mouth two times a day. for hip and arthritic pain. Take with food SPIRIVA RESPIMAT 2.5 mcg/actuation inhaler meclizine (ANTIVERT) 25 mg tab 4 TIMES DAILY NEEDED as needed for Dizziness ARIPiprazole (ABILIFY) 15 mg tablet Take 1 tablet by mouth once daily. Dr. Rodriguez albuterol (PROVENTIL) 2.5 mg /3 mL (0.083 %) nebulizer solution Use 3 mL via nebulizer four times daily as needed for Wheezing/Shortness of Breath. Inhale by nebulizer over 5-15 minutes hydrOXYzine pamoate (VISTARIL) 25 mg capsule Take 2 capsules by mouth four times daily as needed. Dr. Rodriguez acetaminophen (TYLENOL EXTRA STRENGTH) 500 mg tablet Take 1,000 mg by mouth two times a day as needed. furosemide (LASIX) 20 mg tablet Take 1-2 tablets by mouth once daily as needed. for swelling in feet topiramate (TOPAMAX) 100 mg tablet Take 1 tablet by mouth two times a day. metFORMIN (GLUCOPHAGE) 500 mg tablet Take 1 tablet by mouth daily with breakfast. OXYGEN, HOME THERAPY, 3 L/min by Nasal Cannula route as directed. At night Nebulizer Accessories kit Provide nebulizer kit. No current facility-administered medications for this visit. ALLERGIES Allergen Reactions Dilaudid [Hydromorp* Unknown Had dilaudid during surgery once and it led to respiratory depression and very slow breathing - she had slow/difficult emergence from anesthesia d/t this Latex Hives, Swelling, Itching Localized Penicillin G Unknown Penicillins Rash, Itching, Shortness of Breath, Hives ACTIVE PROBLEM LIST Vitamin D Deficiency - 12/30/2023 Class 3 Severe Obesity Due to Excess Calories With Body Mass Index (Bmi) of 40.0 to 44.9 in Adult ([facility]) - 11/27/2023 Mitral Valve Prolapse - 10/22/2023 Pulmonary Embolism ([facility]) - 05/29/2023 Chronic Bilateral Low Back Pain With Bilateral Sciatica - 09/01/2019 Biliary Dyskinesia - 08/24/2018 Comment: Added automatically from request for surgery [id number] Class 2 Obesity Due to Excess Calories With Body Mass Index (Bmi) of 38.0 to 38.9 in Adult - 05/11/2018 Altered Bowel Habits - 10/28/2017 Comment: Added automatically from request for surgery [id number] Osteoarthritis of Lumbar Spine - 08/22/2015 Bilateral Foot Pain - 07/13/2015 Edema of Both Legs - 05/29/2015 Thoracic Myofascial Strain - 01/10/2015 Right Hip Pain - 08/04/2014 Snoring Disorder - 12/15/2012 Mdd (Major Depressive Disorder), Recurrent Episode - 08/05/2012 Comment: Dx made by Dr Rodriguez 06/2012, r/o Bipolar Disorder Alcohol Dependence in Remission ([facility]) - 08/05/2012 Comment: Dx per Dr Rodriguez 06/2012 History of substance abuse ([facility]) - 08/05/2012 Comment: In remission, Dx per Dr Rodriguez 06/2012 Migraine - 04/02/2012 Asthma ([facility]) Hematuria - 11/25/2011 Chronic Pelvic Pain in Female - 11/25/2011 Urgency of Urination - 11/25/2011 Frequency of Urination - 11/25/2011 Oab (Overactive Bladder) - 11/25/2011 Smoking History - 11/25/2011 Lumbar Radiculopathy - 04/17/2011 Ddd (Degenerative Disc Disease), Cervical - 04/17/2011 Ddd (Degenerative Disc Disease), Lumbar - 04/17/2011 Disc Displacement, Lumbar - 04/17/2011 Cervical Disc Displacement - 04/17/2011 Social History Tobacco Use Smoking status: Former Current packs/day: 0.00 Average packs/day: 1 pack/day for 48.8 years (48.8 ttl pk-yrs) Types: Cigarettes Start date: 11/02/1973 Quit date: 08/13/2022 Years since quittin.7 Smokeless tobacco: Never Tobacco comments: Started smoking at age 14, 1ppd. Both parents smokers. Vaping Use Vaping status: Never Used Substance Use Topics Alcohol use: Not Currently Comment: August 27, 2009 quit Drug use: No Comment: past history of cocaine and marijuana- quit 2008 Review of Systems Respiratory: Negative. Cardiovascular: Positive for leg swelling. Negative for chest pain and palpitations. OBJECTIVE BP 112/76 Pulse 96 Wt 224 lb 10.4 oz (101.9kg) SpO2 95% LMP 03/09/2013 Physical Exam Vitals and nursing note reviewed. Constitutional: General: She is awake. She is not in acute distress. Appearance: Normal appearance. She is well-developed and well-groomed. She is not ill-appearing, toxic-appearing or diaphoretic. HENT: Head: Normocephalic. Right Ear: External ear normal. Left Ear: External ear normal. Nose: Nose normal. Eyes: General: Vision grossly intact. Conjunctiva/sclera: Conjunctivae normal. Pupils: Pupils are equal, round, and reactive to light. Neck: Vascular: No JVD. Trachea: Trachea normal. Cardiovascular: Rate and Rhythm: Normal rate and regular rhythm. Pulses: Normal pulses. Heart sounds: Normal heart sounds. No murmur heard. Pulmonary: Effort: Pulmonary effort is normal. No accessory muscle usage, prolonged expiration or respiratory distress. Breath sounds: Normal breath sounds. Musculoskeletal: Cervical back: Neck supple. Right lower leg: Edema (slight) present. Left lower leg: Edema (slight) present. Skin: General: Skin is warm and dry. Capillary Refill: Capillary refill takes less than 2 seconds. Neurological: General: No focal deficit present. Mental Status: She is alert and oriented to person, place, and time. Mental status is at baseline. Psychiatric: Attention and Perception: Attention and perception normal. Mood and Affect: Mood and affect normal. Speech: Speech normal. Behavior: Behavior normal. Behavior is cooperative. Thought Content: Thought content normal. Cognition and Memory: Cognition and memory normal. Judgment: Judgment normal. ASSESSMENT/PLAN: 1. Leg swelling (M79.89) Bilateral swelling of feet (M79.89) Experiencing significant edema and discomfort in both legs and feet, despite adherence to compression stockings and current diuretic therapy with Lasix 20 mg daily. Edema likely contributing to difficulty in weight loss. Renal function and potassium levels are stable, allowing for adjustment in diuretic therapy. - Increase Lasix dosage to 40 mg daily, with the option to take up to 60 mg if needed. - Continue wearing compression stockings. - Monitor for any signs of electrolyte imbalance or renal dysfunction. 2. Class 3 severe obesity due to excess calories with body mass index (BMI) of 40.0 to 44.9 in adult, unspecified whether serious comorbidity present (HCC) (E66.813) Current weight is 224 lbs, down from 231 lbs on April 05. Patient is on medications that may contribute to weight gain, including Abilify and gabapentin. Patient is actively trying to lose weight through dietary changes and increased physical activity. - Educated patient on the importance of protein intake; advised to aim for 90 grams of protein per day. - Adjusted Topamax dosage to 100 mg BID to aid in weight loss. - Initiated metformin once daily to assist with weight loss, particularly weight gain associated with Abilify. - Advised patient to take metformin with food to minimize gastrointestinal side effects. - Follow-up in July to assess progress and make further adjustments if necessary. 3. Migraine without status migrainosus, not intractable, unspecified migraine type (G43.909) Stable on Topamax. 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 Patient/authorized customer service representative teacher agreed to proceed Portions of this note have been entered by ancillary staff. I have reviewed and when necessary edited, so that they are an adequate record of my encounter with this patient Please note that parts of this document were created using voice recognition software and therefore may contain grammatical errors. Patient verbalizes understanding of instructions from today's visit and in agreement with treatment plan. Questions answered. Agrees to call the office if questions, concerns of issues with acute symptoms not improving or if they worsen. See diagnoses and orders for additional plan(s). Allergies and medications were reviewed, list was updated, and refills given if needed. Past medical, surgical, social, and family history reviewed and updated as appropriate. Encouraged proper diet AND exercise as well as compliance with taking medications. Age-appropriate health preventative measures were discussed. Return if symptoms worsen or fail to improve, for Keep next scheduled appointment.. MEAGAN Wasserman CNOV Observed: 05/08/2025 2:20 PM Status: COMPLETED Source: [facility] Office Visit ([facility]) YENNY MARSHALL ([id number]) 1960 F Date Time Provider Department 05/08/25 2:20 PM NEHA SHEPPARD [facility] During your visit today, we recorded the following information about you: Pulse Blood pressure Weight 96/minute 112/76 101.9 kg Neha Sheppard APRN.CNP 05/08/2025 3:10 PM Signed SUBJECTIVE Yenny Marshall is a 64 year old female here today for a check up on her medical problems. Chief Complaint Patient presents with: Weight Problem Pain: complaints of pain and swelling in legs. States is having trouble moving due to leg pain. HPI Yenny Marshall is a 64-year-old female with a history of obesity, presenting with bilateral leg pain and difficulty losing weight. Yenny reports persistent bilateral leg pain and discomfort, which she describes as a feeling of swelling and fullness, particularly when ambulating. She has been wearing compression stockings consistently for the past 10 days and taking Lasix 20 mg daily as needed, but continues to experience significant discomfort. She notes that the pain radiates from her legs down to her feet and is associated with a sensation of fluid retention. She is uncertain if the symptoms are exacerbated by the heat. Yenny has been actively trying to lose weight and has made several dietary changes, including drinking only water and unsweetened tea, consuming primarily vegetables, and reducing portion sizes. Despite these efforts, she reports minimal weight loss and expresses frustration with her progress. She is concerned that her current medications, including Abilify and gabapentin, may be contributing to her difficulty losing weight. She also inquires about the possibility of having fibromyalgia due to her chronic pain. Yenny is currently taking topiramate 50 mg in the morning and 100 mg at bedtime, and uses tizanidine occasionally, taking half a tablet before sleep as needed. She remains physically active, engaging in daily activities such as watering plants, assisting a neighbor with cancer, and performing housework. She also works in a job that requires wearing steel-toed boots, which she believes may contribute to her leg discomfort. Her medications were reviewed today and her list is now up to date. Medications Current Outpatient Medications Medication Sig gabapentin (NEURONTIN) 300 mg capsule Take 1 capsule by mouth every morning AND 2 capsules daily at bedtime AND 1 capsule every afternoon. Do all this for 180 days. As directed. fluticasone (FLONASE) 50 mcg/actuation nasal spray Use 2 sprays in each nostril once daily. Rinse mouth after use. budesonide-formoterol (SYMBICORT) 160-4.5 mcg/actuation inhaler Inhale 1 puff as instructed two times a day. cetirizine (ZYRTEC) 10 mg tablet Take 10 mg by mouth once daily. albuterol HFA (PROAIR HFA) 90 mcg/actuation inhaler Inhale 2 puffs as instructed every 4 hours as needed. DULoxetine (CYMBALTA) 30 mg capsule Take 1 capsule by mouth every evening. DULoxetine (CYMBALTA) 60 mg capsule Take 1 capsule by mouth every morning. SUMAtriptan (IMITREX) 100 mg tablet Take 1 tablet by mouth as needed for migraine headache (see administration instructions). May repeat dose after 2 hours if needed. Maximum daily dose is 200 mg per day.TAKE 1 TABLET BY MOUTH AT ONSET OF HEADACHE MAY REPEAT IN 2 HOURS IF HEADACHE PERSISTS MAXIMUM DAILY DOSE OF 2 TABLETS ( 200 MILLIGRAMS ) EVERY 24 HOURS celecoxib (CELEBREX) 200 mg capsule Take 1 capsule by mouth two times a day. for hip and arthritic pain. Take with food SPIRIVA RESPIMAT 2.5 mcg/actuation inhaler meclizine (ANTIVERT) 25 mg tab 4 TIMES DAILY NEEDED as needed for Dizziness ARIPiprazole (ABILIFY) 15 mg tablet Take 1 tablet by mouth once daily. Dr. Rodriguez albuterol (PROVENTIL) 2.5 mg /3 mL (0.083 %) nebulizer solution Use 3 mL via nebulizer four times daily as needed for Wheezing/Shortness of Breath. Inhale by nebulizer over 5-15 minutes hydrOXYzine pamoate (VISTARIL) 25 mg capsule Take 2 capsules by mouth four times daily as needed. Dr. Rodriguez acetaminophen (TYLENOL EXTRA STRENGTH) 500 mg tablet Take 1,000 mg by mouth two times a day as needed. furosemide (LASIX) 20 mg tablet Take 1-2 tablets by mouth once daily as needed. for swelling in feet topiramate (TOPAMAX) 100 mg tablet Take 1 tablet by mouth two times a day. metFORMIN (GLUCOPHAGE) 500 mg tablet Take 1 tablet by mouth daily with breakfast. OXYGEN, HOME THERAPY, 3 L/min by Nasal Cannula route as directed. At night Nebulizer Accessories kit Provide nebulizer kit. No current facility-administered medications for this visit. ALLERGIES Allergen Reactions Dilaudid [Hydromorp* Unknown Had dilaudid during surgery once and it led to respiratory depression and very slow breathing - she had slow/difficult emergence from anesthesia d/t this Latex Hives, Swelling, Itching Localized Penicillin G Unknown Penicillins Rash, Itching, Shortness of Breath, Hives ACTIVE PROBLEM LIST Vitamin D Deficiency - 12/30/2023 Class 3 Severe Obesity Due to Excess Calories With Body Mass Index (Bmi) of 40.0 to 44.9 in Adult ([facility]) - 11/27/2023 Mitral Valve Prolapse - 10/22/2023 Pulmonary Embolism ([facility]) - 05/29/2023 Chronic Bilateral Low Back Pain With Bilateral Sciatica - 09/01/2019 Biliary Dyskinesia - 08/24/2018 Comment: Added automatically from request for surgery [id number] Class 2 Obesity Due to Excess Calories With Body Mass Index (Bmi) of 38.0 to 38.9 in Adult - 05/11/2018 Altered Bowel Habits - 10/28/2017 Comment: Added automatically from request for surgery [id number] Osteoarthritis of Lumbar Spine - 08/22/2015 Bilateral Foot Pain - 07/13/2015 Edema of Both Legs - 05/29/2015 Thoracic Myofascial Strain - 01/10/2015 Right Hip Pain - 08/04/2014 Snoring Disorder - 12/15/2012 Mdd (Major Depressive Disorder), Recurrent Episode - 08/05/2012 Comment: Dx made by Dr Rodriguez 06/2012, r/o Bipolar Disorder Alcohol Dependence in Remission ([facility]) - 08/05/2012 Comment: Dx per Dr Rodriguez 06/2012 History of substance abuse ([facility]) - 08/05/2012 Comment: In remission, Dx per Dr Rodriguez 06/2012 Migraine - 04/02/2012 Asthma ([facility]) Hematuria - 11/25/2011 Chronic Pelvic Pain in Female - 11/25/2011 Urgency of Urination - 11/25/2011 Frequency of Urination - 11/25/2011 Oab (Overactive Bladder) - 11/25/2011 Smoking History - 11/25/2011 Lumbar Radiculopathy - 04/17/2011 Ddd (Degenerative Disc Disease), Cervical - 04/17/2011 Ddd (Degenerative Disc Disease), Lumbar - 04/17/2011 Disc Displacement, Lumbar - 04/17/2011 Cervical Disc Displacement - 04/17/2011 Social History Tobacco Use Smoking status: Former Current packs/day: 0.00 Average packs/day: 1 pack/day for 48.8 years (48.8 ttl pk-yrs) Types: Cigarettes Start date: 11/02/1973 Quit date: 08/13/2022 Years since quittin.7 Smokeless tobacco: Never Tobacco comments: Started smoking at age 14, 1ppd. Both parents smokers. Vaping Use Vaping status: Never Used Substance Use Topics Alcohol use: Not Currently Comment: August 27, 2009 quit Drug use: No Comment: past history of cocaine and marijuana- quit 2008 Review of Systems Respiratory: Negative. Cardiovascular: Positive for leg swelling. Negative for chest pain and palpitations. OBJECTIVE BP 112/76 Pulse 96 Wt 224 lb 10.4 oz (101.9kg) SpO2 95% LMP 03/09/2013 Physical Exam Vitals and nursing note reviewed. Constitutional: General: She is awake. She is not in acute distress. Appearance: Normal appearance. She is well-developed and well-groomed. She is not ill-appearing, toxic-appearing or diaphoretic. HENT: Head: Normocephalic. Right Ear: External ear normal. Left Ear: External ear normal. Nose: Nose normal. Eyes: General: Vision grossly intact. Conjunctiva/sclera: Conjunctivae normal. Pupils: Pupils are equal, round, and reactive to light. Neck: Vascular: No JVD. Trachea: Trachea normal. Cardiovascular: Rate and Rhythm: Normal rate and regular rhythm. Pulses: Normal pulses. Heart sounds: Normal heart sounds. No murmur heard. Pulmonary: Effort: Pulmonary effort is normal. No accessory muscle usage, prolonged expiration or respiratory distress. Breath sounds: Normal breath sounds. Musculoskeletal: Cervical back: Neck supple. Right lower leg: Edema (slight) present. Left lower leg: Edema (slight) present. Skin: General: Skin is warm and dry. Capillary Refill: Capillary refill takes less than 2 seconds. Neurological: General: No focal deficit present. Mental Status: She is alert and oriented to person, place, and time. Mental status is at baseline. Psychiatric: Attention and Perception: Attention and perception normal. Mood and Affect: Mood and affect normal. Speech: Speech normal. Behavior: Behavior normal. Behavior is cooperative. Thought Content: Thought content normal. Cognition and Memory: Cognition and memory normal. Judgment: Judgment normal. ASSESSMENT/PLAN: 1. Leg swelling (M79.89) Bilateral swelling of feet (M79.89) Experiencing significant edema and discomfort in both legs and feet, despite adherence to compression stockings and current diuretic therapy with Lasix 20 mg daily. Edema likely contributing to difficulty in weight loss. Renal function and potassium levels are stable, allowing for adjustment in diuretic therapy. - Increase Lasix dosage to 40 mg daily, with the option to take up to 60 mg if needed. - Continue wearing compression stockings. - Monitor for any signs of electrolyte imbalance or renal dysfunction. 2. Class 3 severe obesity due to excess calories with body mass index (BMI) of 40.0 to 44.9 in adult, unspecified whether serious comorbidity present ([facility]) (E66.233) Current weight is 224 lbs, down from 231 lbs on April 05. Patient is on medications that may contribute to weight gain, including Abilify and gabapentin. Patient is actively trying to lose weight through dietary changes and increased physical activity. - Educated patient on the importance of protein intake; advised to aim for 90 grams of protein per day. - Adjusted Topamax dosage to 100 mg BID to aid in weight loss. - Initiated metformin once daily to assist with weight loss, particularly weight gain associated with Abilify. - Advised patient to take metformin with food to minimize gastrointestinal side effects. - Follow-up in July to assess progress and make further adjustments if necessary. 3. Migraine without status migrainosus, not intractable, unspecified migraine type (G43.909) Stable on Topamax. 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 Patient/authorized customer service representative teacher agreed to proceed Portions of this note have been entered by ancillary staff. I have reviewed and when necessary edited, so that they are an adequate record of my encounter with this patient Please note that parts of this document were created using voice recognition software and therefore may contain grammatical errors. Patient verbalizes understanding of instructions from today's visit and in agreement with treatment plan. Questions answered. Agrees to call the office if questions, concerns of issues with acute symptoms not improving or if they worsen. See diagnoses and orders for additional plan(s). Allergies and medications were reviewed, list was updated, and refills given if needed. Past medical, surgical, social, and family history reviewed and updated as appropriate. Encouraged proper diet AND exercise as well as compliance with taking medications. Age-appropriate health preventative measures were discussed. Return if symptoms worsen or fail to improve, for Keep next scheduled appointment.. Neha Sheppard APRN-[facility]URSE ICU Allergies As of Date: 05/08/2025 Noted Allergy Reaction DILAUDID (HYDROMORPHONE) 10/22/2023 16 - Unknown Comments: Had dilaudid during surgery once and it led to respiratory depression and very slow breathing - she had slow/difficult emergence from anesthesia d/t this LATEX 04/17/2014 4 - Hives 7 - Swelling 9 - Itching Comments: Localized PENICILLIN G 04/22/2011 16 - Unknown PENICILLINS 04/17/2011 2 - Rash 9 - Itching 12 - Shortness of Breath 4 - Hives Date Reviewed: 05/08/2025 Reviewed by: Neha Sheppard APRN.[facility]URSE ICU - Fully Assessed Reason for Visit: Weight Problem [121] Pain [78] Cmt: complaints of pain and swelling in legs. States is having trouble moving due to leg pain. Primary Visit Diagnosis:Leg swelling [M79.89] Other Visit Diagnoses:Bilateral swelling of feet [M79.89] Class 3 severe obesity due to excess calories with body mass index (BMI) of 40.0 to 44.9 in adult, unspecified whether serious comorbidity present (HCC) [E66.813, Z68.41] Migraine without status migrainosus, not intractable, unspecified migraine type [G43.909] Order(s):furosemide (LASIX) 20 mg tabletTake 1-2 tablets by mouth once daily as needed. for swelling in feetDisp: 60 tabletRfl: 2 topiramate (TOPAMAX) 100 mg tabletTake 1 tablet by mouth two times a day.Disp: 60 tabletRfl: 5 metFORMIN (GLUCOPHAGE) 500 mg tabletTake 1 tablet by mouth daily with breakfast.Disp: 30 tabletRfl: 5 Prescriptions as of 05/08/2025 - acetaminophen (TYLENOL EXTRA STRENGTH) 500 mg tablet Take 1,000 mg by mouth two times a day as needed. - furosemide (LASIX) 20 mg tablet Take 1-2 tablets by mouth once daily as needed. for swelling in feet - topiramate (TOPAMAX) 100 mg tablet Take 1 tablet by mouth two times a day. - metFORMIN (GLUCOPHAGE) 500 mg tablet Take 1 tablet by mouth daily with breakfast. - gabapentin (NEURONTIN) 300 mg capsule Take 1 capsule by mouth every morning AND 2 capsules daily at bedtime AND 1 capsule every afternoon. Do all this for 180 days. As directed. - fluticasone (FLONASE) 50 mcg/actuation nasal spray Use 2 sprays in each nostril once daily. Rinse mouth after use. - budesonide-formoterol (SYMBICORT) 160-4.5 mcg/actuation inhaler Inhale 1 puff as instructed two times a day. - cetirizine (ZYRTEC) 10 mg tablet Take 10 mg by mouth once daily. - albuterol HFA (PROAIR HFA) 90 mcg/actuation inhaler Inhale 2 puffs as instructed every 4 hours as needed. - DULoxetine (CYMBALTA) 30 mg capsule Take 1 capsule by mouth every evening. - DULoxetine (CYMBALTA) 60 mg capsule Take 1 capsule by mouth every morning. - SUMAtriptan (IMITREX) 100 mg tablet Take 1 tablet by mouth as needed for migraine headache (see administration instructions). May repeat dose after 2 hours if needed. Maximum daily dose is 200 mg per day.TAKE 1 TABLET BY MOUTH AT ONSET OF HEADACHE MAY REPEAT IN 2 HOURS IF HEADACHE PERSISTS MAXIMUM DAILY DOSE OF 2 TABLETS ( 200 MILLIGRAMS ) EVERY 24 HOURS - celecoxib (CELEBREX) 200 mg capsule Take 1 capsule by mouth two times a day. for hip and arthritic pain. Take with food - SPIRIVA RESPIMAT 2.5 mcg/actuation inhaler - meclizine (ANTIVERT) 25 mg tab 4 TIMES DAILY NEEDED as needed for Dizziness - OXYGEN, HOME THERAPY, 3 L/min by Nasal Cannula route as directed. At night - ARIPiprazole (ABILIFY) 15 mg tablet Take 1 tablet by mouth once daily. Dr. Rodriguez - Nebulizer Accessories kit Provide nebulizer kit. - albuterol (PROVENTIL) 2.5 mg /3 mL (0.083 %) nebulizer solution Use 3 mL via nebulizer four times daily as needed for Wheezing/Shortness of Breath. Inhale by nebulizer over 5-15 minutes - hydrOXYzine pamoate (VISTARIL) 25 mg capsule Take 2 capsules by mouth four times daily as needed. Dr. Rodriguez Problem List As Of Date 05/08/2025 Noted Resolved Lumbar radiculopathy [M54.16] 04/17/2011 DDD (degenerative disc disease), cervical [M50.*04/17/2011 DDD (degenerative disc disease), lumbar [M51.36*04/17/2011 Disc displacement, lumbar [M51.26] 04/17/2011 Cervical disc displacement [M50.20] 04/17/2011 Hematuria [R31.9] 11/25/2011 Chronic pelvic pain in female [R10.2, G89.29] 11/25/2011 Urgency of urination [R39.15] 11/25/2011 Frequency of urination [R35.0] 11/25/2011 OAB (overactive bladder) [N32.81] 11/25/2011 Smoking history [Z87.891] 11/25/2011 Asthma [J45.909] Migraine [G43.909] 04/02/2012 MDD (major depressive disorder), recurrent epis*08/05/2012 Alcohol dependence in remission (HCC) [F10.21] 08/05/2012 History of substance abuse (HCC) [F19.11] 08/05/2012 Snoring disorder [R06.83] 12/15/2012 Depression [F32.A] 06/11/2022 Right hip pain [M25.551] 08/04/2014 Thoracic myofascial strain [S29.019A] 01/10/2015 Edema of both legs [R60.0] 05/29/2015 Bilateral foot pain [M79.671, M79.672] 07/13/2015 Osteoarthritis of lumbar spine [M47.816] 08/22/2015 Altered bowel habits [R19.4] 10/28/2017 Class 2 obesity due to excess calories with bod*05/11/2018 Biliary dyskinesia [K82.8] 08/24/2018 Obesity, Class I, BMI 30-34.9 [E66.811] 05/23/2019 06/11/2022 Chronic bilateral low back pain with bilateral *09/01/2019 Class 2 obesity due to excess calories without *05/11/2018 11/30/2019 Pulmonary embolism (HCC) [I26.99] 05/29/2023 Mitral valve prolapse [I34.1] 10/22/2023 Class 3 severe obesity due to excess calories w*11/27/2023 Vitamin D deficiency [E55.9] 12/30/2023 Prescriptions ordered this encounter Disp Refills Start End FUROSEMIDE 20 MG TABLET 60 t* 2 05/08/2025 Route: PO Sig: Take 1-2 tablets by mouth once daily as needed. for swelling in feet TOPIRAMATE 100 MG TABLET 60 t* 5 05/08/2025 Route: PO Sig: Take 1 tablet by mouth two times a day. METFORMIN 500 MG TABLET 30 t* 5 05/08/2025 Route: PO Sig: Take 1 tablet by mouth daily with breakfast. Medications Discontinued During This Encounter Prescriptions - benzonatate (TESSALON PERLE) 100 mg capsule (Discontinued) Reported on 05/08/2025 - tiZANidine (ZANAFLEX) 2 mg tablet (Discontinued) Take 1 tablet by mouth once daily as needed. As directed - furosemide (LASIX) 20 mg tablet (Discontinued) Take 0.5-1 tablets by mouth once daily as needed. for swelling in feet - topiramate (TOPAMAX) 50 mg tablet (Discontinued) Take 1 tablet by mouth every morning AND 2 tablets daily at bedtime. Disposition: Return if symptoms worsen or fail to improve, for Keep next scheduled appointment.. Follow-up and Disposition History for Encounter Date Provider Department Center 05/08/2025 [id number] SHEPPARDWS [facility] Encounter Status:Closed by NEHA SHEPPARD on 05/08/25 XR CHEST 2V FRONTAL/LAT Observed: 2024 1:11 PM Status: F Source: [facility] * * *Final Report* * * DATE OF EXAM: Apr 18 2025 1:11PM WOX [id number] - XR CHEST 2V FRONTAL/LAT / PROCEDURE REASON: Pneumonia of right upper lobe due to infectious organism * * * * Physician Interpretation * * * * EXAMINATION: CHEST RADIOGRAPH (2 VIEW FRONTAL and LATERAL) CLINICAL HISTORY: Pneumonia of right upper lobe due to infectious organism MQ: [id number] EXAM DATE/TIME: 04/18/2025 1:11 PM COMPARISON: Chest x-ray dated 03/30/2025 RESULT: Lines, tubes, and devices: None. Lungs and pleura: Stable mild biapical pleural thickening likely reflecting senescent change. No consolidation. No lung mass. No pleural effusion. No pneumothorax. Cardiomediastinal silhouette: Normal cardiomediastinal silhouette. Bones and soft tissues: Degenerative changes are present within the thoracic spine. IMPRESSION: No acute radiographic abnormality. Apparatus Cleaner: PSCB Transcribe Date/Time: Apr 18 2025 1:11P Dictated by : MCKENZIE DODSON MD This examination was interpreted and the report reviewed and electronically signed by: MCKENZIE DODSON MD on Apr 18 2025 1:12PM EST [id number] PROGRESS Observed: 04/18/2025 12:40 PM Status: COMPLETED [id number] Author: NUBIA BELTRAN RT(R) Service: ? Author Type: Trench Shovel Operator Type: Progress Notes Filed: 04/18/2025 13:10 Note Text: Radiology Service Progress Note PATIENT NAME: Yenny Marshall DATE OF SERVICE: April 18, 2025 TIME: 12:55 PM PATIENT IDENTITY VERIFICATION COMPLETED USING TWO (2) IDENTIFIERS: Name and Date of confirmed by patient verbally. FALL SCREENING: Has the patient had 2 falls in the last year or 1 fall with injury or currently using an Ambulatory Assistive Device (Walker, Cane, Wheelchair, Crutches, etc.)? No PATIENT GENDER DATA: Assigned female at . status: : No status: NO. PATIENT RELEVANT IMPLANT DATA REVIEWED: Yes PATIENT PRESENTS WITH AN IMPLANTABLE OR ATTACHED CLUB STEWARD: No RADIOLOGY DEPARTMENT: General X-ray: Exam(s) Completed: Chest X-Ray PERIPHERAL IV DATA: Not applicable SIGNED BY: RT Mireille(R) April 18, 2025 12:55 PM PROGRESS Observed: 04/18/2025 12:00 PM Status: COMPLETED Source: [facility] HNO ID: [id number] Author: ADRIAN LÓPEZ APRN.TERMITE TECHNICIAN Service: ? Author Type: Nurse Specialist Type: Progress Notes Filed: 04/18/2025 12:27 Note Text: SUBJECTIVE: Lung Cancer Screening Never done Covid-19 Vaccine( season) due on 07/03/2024 Medicare Advantage Annual Wellness Visit due on 11/02/2024 Mammogram Screening due on 10/03/2025 [facility] Yenny Marshall is a 64 year old female. PMH significant for ACTIVE PROBLEM LIST Lumbar Radiculopathy Ddd (Degenerative Disc Disease), Cervical Ddd (Degenerative Disc Disease), Lumbar Disc Displacement, Lumbar Cervical Disc Displacement Hematuria Chronic Pelvic Pain in Female Urgency of Urination Frequency of Urination Oab (Overactive Bladder) Smoking History Asthma (Hcc) Migraine Mdd (Major Depressive Disorder), Recurrent Episode Alcohol Dependence in Remission ([facility]cc) History of substance abuse (HCC) Snoring Disorder Right Hip Pain Thoracic Myofascial Strain Edema of Both Legs Bilateral Foot Pain Osteoarthritis of Lumbar Spine Altered Bowel Habits Class 2 Obesity Due to Excess Calories With Body Mass Index (Bmi) of 38.0 to 38.9 in Adult Biliary Dyskinesia Chronic Bilateral Low Back Pain With Bilateral Sciatica Pulmonary Embolism (Hcc) Mitral Valve Prolapse Class 3 Severe Obesity Due to Excess Calories With Body Mass Index (Bmi) of 40.0 to 44.9 in Adult ([facility]) Vitamin D Deficiency Presents today for ER follow up visit. She was seen at [facility] April 10, 2025. She presented with report of 8 days of symptoms prior to arrival with chest pain under the right rib. Currently non-smoker. No fever. Nonproductive cough. Notes shortness of breath and chest pain with exertion, not pleuritic in nature per OSH notes. Noted to have coarse breath sounds with wheezing underwent CT and CTA of the chest with and without contrast. This showed no evidence of pulmonary embolus. Focal area of groundglass appearance in the posterior lateral aspect of the right upper lobe is noted consistent with possible early infiltrate. She was continued on doxycycline. Troponin was negative. CBC BMP BNP unremarkable. Pulmonology:Dr. Palomino and Julia Coello Today reports Pneumonia: - Recent pneumonia diagnosis confirmed via CT scan in the ED. - Completed a course of doxycycline. - Residual symptoms include fatigue, cough, and rhinorrhea. - Cough is most pronounced in the morning and late at night; managed with Tessalon Perles and nebulizer treatments. - Rhinorrhea managed with Flonase and cetirizine, with partial relief. - Denies current fever. - Reports significant fatigue, requiring frequent rest periods. - Previously experienced pain in the right upper lobe, now resolved with alternating ibuprofen and Tylenol. - Uses oxygen at night (3 L). - Follow-up with customer marketing assistant scheduled for August. COPD: - Managed with Spiriva and Symbicort inhalers. Review of Systems Objective BP 100/68 Pulse 97 Temp 36.9 ?C (98.5 ?F) (Temporal) Resp 20 Wt 102.3 kg (225 lb 8.5 oz) LMP 03/09/2013 SpO2 97% BMI 40.92 kg/m? Physical Exam Vitals and nursing note reviewed. Constitutional: Appearance: Normal appearance. HENT: Head: Normocephalic. Right Ear: External ear normal. Left Ear: External ear normal. Mouth/Throat: Lips: [place]. Mouth: Mucous membranes are moist. Pharynx: Oropharynx is clear. Cardiovascular: Rate and Rhythm: Normal rate and regular rhythm. Heart sounds: Normal heart sounds. Pulmonary: Effort: Pulmonary effort is normal. Breath sounds: Normal breath sounds. Abdominal: General: Bowel sounds are normal. There is no distension. Palpations: Abdomen is soft. There is no mass. Tenderness: There is no abdominal tenderness. There is no guarding or rebound. Musculoskeletal: Right lower leg: No edema. Left lower leg: No edema. Skin: General: Skin is warm and dry. Neurological: General: No focal deficit present. Mental Status: She is alert and oriented to person, place, and time. ALLERGIES Allergen Reactions Dilaudid [Hydromorp* Unknown Had dilaudid during surgery once and it led to respiratory depression and very slow breathing - she had slow/difficult emergence from anesthesia d/t this Latex Hives, Swelling, Itching Localized Penicillin G Unknown Penicillins Rash, Itching, Shortness of Breath, Hives MEDICATIONS budesonide-formoterol (SYMBICORT) 160-4.5 mcg/actuation inhaler Inhale 1 puff as instructed two times a day. cetirizine (ZYRTEC) 10 mg tablet Take 10 mg by mouth once daily. albuterol HFA (PROAIR HFA) 90 mcg/actuation inhaler Inhale 2 puffs as instructed every 4 hours as needed. benzonatate (TESSALON PERLE) 100 mg capsule Take 2 capsules by mouth three times a day as needed for cough. furosemide (LASIX) 20 mg tablet Take 0.5-1 tablets by mouth once daily as needed. for swelling in feet DULoxetine (CYMBALTA) 30 mg capsule Take 1 capsule by mouth every evening. DULoxetine (CYMBALTA) 60 mg capsule Take 1 capsule by mouth every morning. SUMAtriptan (IMITREX) 100 mg tablet Take 1 tablet by mouth as needed for migraine headache (see administration instructions). May repeat dose after 2 hours if needed. Maximum daily dose is 200 mg per day.TAKE 1 TABLET BY MOUTH AT ONSET OF HEADACHE MAY REPEAT IN 2 HOURS IF HEADACHE PERSISTS MAXIMUM DAILY DOSE OF 2 TABLETS ( 200 MILLIGRAMS ) EVERY 24 HOURS tiZANidine (ZANAFLEX) 2 mg tablet Take 1 tablet by mouth once daily as needed. As directed topiramate (TOPAMAX) 50 mg tablet Take 1 tablet by mouth every morning AND 2 tablets daily at bedtime. fluticasone (FLONASE) 50 mcg/actuation nasal spray Use 2 Sprays in each nostril once daily. Rinse mouth after use. gabapentin (NEURONTIN) 300 mg capsule Take 1 capsule by mouth every morning AND 2 capsules daily at bedtime AND 1 capsule every afternoon. Do all this for 180 days. As directed. celecoxib (CELEBREX) 200 mg capsule Take 1 capsule by mouth two times a day. for hip and arthritic pain. Take with food SPIRIVA RESPIMAT 2.5 mcg/actuation inhaler meclizine (ANTIVERT) 25 mg tab 4 TIMES DAILY NEEDED as needed for Dizziness ARIPiprazole (ABILIFY) 15 mg tablet Take 1 tablet by mouth once daily. Dr. Rodriguez albuterol (PROVENTIL) 2.5 mg /3 mL (0.083 %) nebulizer solution Use 3 mL via nebulizer four times daily as needed for Wheezing/Shortness of Breath. Inhale by nebulizer over 5-15 minutes hydrOXYzine pamoate (VISTARIL) 25 mg capsule Take 2 capsules by mouth four times daily as needed. Dr. Rodriguez OXYGEN, HOME THERAPY, 3 L/min by Nasal Cannula route as directed. At night Nebulizer Accessories kit Provide nebulizer kit. PAST MEDICAL HISTORY Diagnosis Date Arrhythmia Asthma ([facility]) Blood dyscrasia Cervical disc displacement 04/17/2011 Chronic obstructive pulmonary disease (COPD) ([facility]) Class 2 obesity due to excess calories without serious comorbidity with body mass index (BMI) of 37.0 to 37.9 in adult 05/11/2018 Degenerative disk disease bulging disks Depression Foot fracture, right 2003 Fell off ladder and fractured right foot H/O ETOH abuse In remission/recovery over 10 years (as of 11/2019) Lactose intolerance Lumbar radiculopathy 04/17/2011 Migraine 04/02/2012 Mitral valve prolapse KALPESH (obstructive sleep apnea) 12/15/2012 KALPESH (obstructive sleep apnea) 12/15/2012 SLEEP ARCHITECTURE: PSG 10/05/2012 The study started at 22:34:01 and ended at 06:39:39. Total sleep time was 405 minutes resulting in a sleep efficiency of 92.2% (TRT = 439 m). There were 14 awakenings with a total time awake after sleep onset of 11.0 minutes. The sleep latency was 23.0 minutes and the REM latency was 308 minutes. Snoring Substance abuse ([facility]) In remission >10 years (as of 11/2019) Social History Tobacco Use Smoking status: Former Current packs/day: 0.00 Average packs/day: 1 pack/day for 48.8 years (48.8 ttl pk-yrs) Types: Cigarettes Start date: 11/02/1973 Quit date: 08/13/2022 Years since quittin.6 Smokeless tobacco: Never Tobacco comments: Started smoking at age 14, 1ppd. Both parents smokers. Vaping Use Vaping status: Never Used Substance Use Topics Alcohol use: Not Currently Comment: August 27, 2009 quit Drug use: No Comment: past history of cocaine and marijuana- quit 2008 Latest Ref Rng 03/17/2024 WBC 3.70 - 11.00 k/uL 6.06 RBC 3.90 - 5.20 m/uL 4.02 Hemoglobin 11.5 - 15.5 g/dL 12.1 Hematocrit 36.0 - 46.0 % 38.8 MCV 80.0 - 100.0 fL 96.5 MCH 26.0 - 34.0 pg 30.1 MCHC 30.5 - 36.0 g/dL 31.2 RDW-CV 11.5 - 15.0 % 13.2 Platelet Count 150 - 400 k/uL 276 MPV 9.0 - 12.7 fL 10.1 Neut% % 56.9 Abs Neut (ANC) 1.45 - 7.50 k/uL 3.46 Lymph% % 34.2 Abs Lymph 1.00 - 4.00 k/uL 2.07 Billings% % 5.0 Abs Billings <0.87 k/uL 0.30 Eosin% % 2.5 Abs Eosin <0.46 k/uL 0.15 Baso% % 1.2 Abs Baso <0.11 k/uL 0.07 Immature Gran % % 0.2 IMMATURE GRANS (ABS) <0.10 k/uL <0.03 NRBC /100 WBC 0.0 Absolute nRBC <0.01 k/uL <0.01 DTYPE Auto Protein, Total 6.3 - 8.0 g/dL 6.3 Albumin 3.9 - 4.9 g/dL 4.1 Calcium 8.5 - 10.2 mg/dL 9.6 Bilirubin, Total 0.2 - 1.3 mg/dL 0.2 Alkaline Phosphatase 34 - 123 U/L 63 AST 13 - 35 U/L 19 ALT 7 - 38 U/L 19 Glucose 74 - 99 mg/dL 113 (H) BUN 7 - 21 mg/dL 21 Creatinine 0.58 - 0.96 mg/dL 0.60 Sodium 136 - 144 mmol/L 142 Potassium 3.7 - 5.1 mmol/L 4.3 Chloride 97 - 105 mmol/L 106 (H) CO2 22 - 30 mmol/L 25 Anion Gap 9 - 18 mmol/L 11 eGFR >=60 mL/min/1.73m? 101 Hemoglobin A1C 4.3 - 5.6 % 5.2 Estimated Average Glucose mg/dL 103 TSH 0.270 - 4.200 mIU/L 0.988 Vitamin D 25 Hydroxy 31.0 - 80.0 ng/mL 31.6 1. Pneumonia of right upper lobe due to infectious organism (J18.9) - Recent hospitalization with CT scan confirming right upper lobe pneumonia. - Completed course of doxycycline; residual symptoms include mild cough, rhinorrhea, and fatigue. - Utilizing Tessalon Perles for cough management, nebulizer treatments BID, and Flonase with cetirizine for rhinorrhea. - Continues Spiriva and Symbicort inhalers; no current fever or pleuritic chest pain. - Auscultation reveals clear breath sounds. - Ordered chest X-ray to assess resolution of pneumonia. - Provided work release for dates through ; patient to resume part-time work with allowances for rest as needed. - Follow-up with pulmonology scheduled in August. Medical Decision Making: Problems: Moderate: Acute illness with systemic symptoms Data: Unique source(s) for external note(s) reviewed: 1 Unique test result(s) reviewed: 3+ Unique test(s) ordered: 1 Risk: Moderate: Drug management Medical Decision Making Level: 4 - Moderate CNOV Observed: 04/18/2025 12:00 PM Status: COMPLETED Source: [facility] Office Visit (INTMWS) YENNY MARSHALL ([id number]) 1960 F Date Time Provider Department 04/18/25 12:00 PM ADRIAN LÓPEZ INTMWS During your visit today, we recorded the following information about you: Temperature Pulse Respiration Blood pressure 98.5 degrees 97/minute 20/minute 100/68 Weight 102.3 kg Adrian López APRN.CNS 04/18/2025 12:27 PM Signed SUBJECTIVE: Lung Cancer Screening Never done Covid-19 Vaccine() due on 07/03/2024 Medicare Advantage Annual Wellness Visit due on 11/02/2024 Mammogram Screening due on 10/03/2025 [facility] Yenny Marshall is a 64 year old female. PMH significant for ACTIVE PROBLEM LIST Lumbar Radiculopathy Ddd (Degenerative Disc Disease), Cervical Ddd (Degenerative Disc Disease), Lumbar Disc Displacement, Lumbar Cervical Disc Displacement Hematuria Chronic Pelvic Pain in Female Urgency of Urination Frequency of Urination Oab (Overactive Bladder) Smoking History Asthma (Hcc) Migraine Mdd (Major Depressive Disorder), Recurrent Episode Alcohol Dependence in Remission ([facility]) History of substance abuse ([facility]) Snoring Disorder Right Hip Pain Thoracic Myofascial Strain Edema of Both Legs Bilateral Foot Pain Osteoarthritis of Lumbar Spine Altered Bowel Habits Class 2 Obesity Due to Excess Calories With Body Mass Index (Bmi) of 38.0 to 38.9 in Adult Biliary Dyskinesia Chronic Bilateral Low Back Pain With Bilateral Sciatica Pulmonary Embolism ([facility]) Mitral Valve Prolapse Class 3 Severe Obesity Due to Excess Calories With Body Mass Index (Bmi) of 40.0 to 44.9 in Adult ([facility]) Vitamin D Deficiency Presents today for ER follow up visit. She was seen at [facility] April 10, 2025. She presented with report of 8 days of symptoms prior to arrival with chest pain under the right rib. Currently non-smoker. No fever. Nonproductive cough. Notes shortness of breath and chest pain with exertion, not pleuritic in nature per OSH notes. Noted to have coarse breath sounds with wheezing underwent CT and CTA of the chest with and without contrast. This showed no evidence of pulmonary embolus. Focal area of groundglass appearance in the posterior lateral aspect of the right upper lobe is noted consistent with possible early infiltrate. She was continued on doxycycline. Troponin was negative. CBC BMP BNP unremarkable. Pulmonology:Dr. Palomino and Julia Coello Today reports Pneumonia: - Recent pneumonia diagnosis confirmed via CT scan in the ED. - Completed a course of doxycycline. - Residual symptoms include fatigue, cough, and rhinorrhea. - Cough is most pronounced in the morning and late at night; managed with Tessalon Perles and nebulizer treatments. - Rhinorrhea managed with Flonase and cetirizine, with partial relief. - Denies current fever. - Reports significant fatigue, requiring frequent rest periods. - Previously experienced pain in the right upper lobe, now resolved with alternating ibuprofen and Tylenol. - Uses oxygen at night (3 L). - Follow-up with customer marketing assistant scheduled for August. COPD: - Managed with Spiriva and Symbicort inhalers. Review of Systems Objective BP 100/68 Pulse 97 Temp 36.9 ?C (98.5 ?F) (Temporal) Resp 20 Wt 102.3 kg (225 lb 8.5 oz) LMP 03/09/2013 SpO2 97% BMI 40.92 kg/m? Physical Exam Vitals and nursing note reviewed. Constitutional: Appearance: Normal appearance. HENT: Head: Normocephalic. Right Ear: External ear normal. Left Ear: External ear normal. Mouth/Throat: Lips: [place]. Mouth: Mucous membranes are moist. Pharynx: Oropharynx is clear. Cardiovascular: Rate and Rhythm: Normal rate and regular rhythm. Heart sounds: Normal heart sounds. Pulmonary: Effort: Pulmonary effort is normal. Breath sounds: Normal breath sounds. Abdominal: General: Bowel sounds are normal. There is no distension. Palpations: Abdomen is soft. There is no mass. Tenderness: There is no abdominal tenderness. There is no guarding or rebound. Musculoskeletal: Right lower leg: No edema. Left lower leg: No edema. Skin: General: Skin is warm and dry. Neurological: General: No focal deficit present. Mental Status: She is alert and oriented to person, place, and time. ALLERGIES Allergen Reactions Dilaudid [Hydromorp* Unknown Had dilaudid during surgery once and it led to respiratory depression and very slow breathing - she had slow/difficult emergence from anesthesia d/t this Latex Hives, Swelling, Itching Localized Penicillin G Unknown Penicillins Rash, Itching, Shortness of Breath, Hives MEDICATIONS budesonide-formoterol (SYMBICORT) 160-4.5 mcg/actuation inhaler Inhale 1 puff as instructed two times a day. cetirizine (ZYRTEC) 10 mg tablet Take 10 mg by mouth once daily. albuterol HFA (PROAIR HFA) 90 mcg/actuation inhaler Inhale 2 puffs as instructed every 4 hours as needed. benzonatate (TESSALON PERLE) 100 mg capsule Take 2 capsules by mouth three times a day as needed for cough. furosemide (LASIX) 20 mg tablet Take 0.5-1 tablets by mouth once daily as needed. for swelling in feet DULoxetine (CYMBALTA) 30 mg capsule Take 1 capsule by mouth every evening. DULoxetine (CYMBALTA) 60 mg capsule Take 1 capsule by mouth every morning. SUMAtriptan (IMITREX) 100 mg tablet Take 1 tablet by mouth as needed for migraine headache (see administration instructions). May repeat dose after 2 hours if needed. Maximum daily dose is 200 mg per day.TAKE 1 TABLET BY MOUTH AT ONSET OF HEADACHE MAY REPEAT IN 2 HOURS IF HEADACHE PERSISTS MAXIMUM DAILY DOSE OF 2 TABLETS ( 200 MILLIGRAMS ) EVERY 24 HOURS tiZANidine (ZANAFLEX) 2 mg tablet Take 1 tablet by mouth once daily as needed. As directed topiramate (TOPAMAX) 50 mg tablet Take 1 tablet by mouth every morning AND 2 tablets daily at bedtime. fluticasone (FLONASE) 50 mcg/actuation nasal spray Use 2 Sprays in each nostril once daily. Rinse mouth after use. gabapentin (NEURONTIN) 300 mg capsule Take 1 capsule by mouth every morning AND 2 capsules daily at bedtime AND 1 capsule every afternoon. Do all this for 180 days. As directed. celecoxib (CELEBREX) 200 mg capsule Take 1 capsule by mouth two times a day. for hip and arthritic pain. Take with food SPIRIVA RESPIMAT 2.5 mcg/actuation inhaler meclizine (ANTIVERT) 25 mg tab 4 TIMES DAILY NEEDED as needed for Dizziness ARIPiprazole (ABILIFY) 15 mg tablet Take 1 tablet by mouth once daily. Dr. Rodriguez albuterol (PROVENTIL) 2.5 mg /3 mL (0.083 %) nebulizer solution Use 3 mL via nebulizer four times daily as needed for Wheezing/Shortness of Breath. Inhale by nebulizer over 5-15 minutes hydrOXYzine pamoate (VISTARIL) 25 mg capsule Take 2 capsules by mouth four times daily as needed. Dr. Rodriguez OXYGEN, HOME THERAPY, 3 L/min by Nasal Cannula route as directed. At night Nebulizer Accessories kit Provide nebulizer kit. PAST MEDICAL HISTORY Diagnosis Date Arrhythmia Asthma ([facility]) Blood dyscrasia Cervical disc displacement 04/17/2011 Chronic obstructive pulmonary disease (COPD) ([facility]) Class 2 obesity due to excess calories without serious comorbidity with body mass index (BMI) of 37.0 to 37.9 in adult 05/11/2018 Degenerative disk disease bulging disks Depression Foot fracture, right 2002 Fell off ladder and fractured right foot H/O ETOH abuse In remission/recovery over 10 years (as of 11/2019) Lactose intolerance Lumbar radiculopathy 04/17/2011 Migraine 04/02/2012 Mitral valve prolapse KALPESH (obstructive sleep apnea) 12/15/2012 KALPESH (obstructive sleep apnea) 12/15/2012 SLEEP ARCHITECTURE: PSG 10/05/2012 The study started at 22:34:01 and ended at 06:39:39. Total sleep time was 405 minutes resulting in a sleep efficiency of 92.2% (TRT = 439 m). There were 14 awakenings with a total time awake after sleep onset of 11.0 minutes. The sleep latency was 23.0 minutes and the REM latency was 308 minutes. Snoring Substance abuse (HCC) In remission >10 years (as of 11/2019) Social History Tobacco Use Smoking status: Former Current packs/day: 0.00 Average packs/day: 1 pack/day for 48.8 years (48.8 ttl pk-yrs) Types: Cigarettes Start date: 11/02/1973 Quit date: 08/13/2022 Years since quittin.6 Smokeless tobacco: Never Tobacco comments: Started smoking at age 14, 1ppd. Both parents smokers. Vaping Use Vaping status: Never Used Substance Use Topics Alcohol use: Not Currently Comment: August 27, 2009 quit Drug use: No Comment: past history of cocaine and marijuana- quit 2008 Latest Ref Rng 03/17/2024 WBC 3.70 - 11.00 k/uL 6.06 RBC 3.90 - 5.20 m/uL 4.02 Hemoglobin 11.5 - 15.5 g/dL 12.1 Hematocrit 36.0 - 46.0 % 38.8 MCV 80.0 - 100.0 fL 96.5 MCH 26.0 - 34.0 pg 30.1 MCHC 30.5 - 36.0 g/dL 31.2 RDW-CV 11.5 - 15.0 % 13.2 Platelet Count 150 - 400 k/uL 276 MPV 9.0 - 12.7 fL 10.1 Neut% % 56.9 Abs Neut (ANC) 1.45 - 7.50 k/uL 3.46 Lymph% % 34.2 Abs Lymph 1.00 - 4.00 k/uL 2.07 Billings% % 5.0 Abs Billings <0.87 k/uL 0.30 Eosin% % 2.5 Abs Eosin <0.46 k/uL 0.15 Baso% % 1.2 Abs Baso <0.11 k/uL 0.07 Immature Gran % % 0.2 IMMATURE GRANS (ABS) <0.10 k/uL <0.03 NRBC /100 WBC 0.0 Absolute nRBC <0.01 k/uL <0.01 DTYPE Auto Protein, Total 6.3 - 8.0 g/dL 6.3 Albumin 3.9 - 4.9 g/dL 4.1 Calcium 8.5 - 10.2 mg/dL 9.6 Bilirubin, Total 0.2 - 1.3 mg/dL 0.2 Alkaline Phosphatase 34 - 123 U/L 63 AST 13 - 35 U/L 19 ALT 7 - 38 U/L 19 Glucose 74 - 99 mg/dL 113 (H) BUN 7 - 21 mg/dL 21 Creatinine 0.58 - 0.96 mg/dL 0.60 Sodium 136 - 144 mmol/L 142 Potassium 3.7 - 5.1 mmol/L 4.3 Chloride 97 - 105 mmol/L 106 (H) CO2 22 - 30 mmol/L 25 Anion Gap 9 - 18 mmol/L 11 eGFR >=60 mL/min/1.73m? 101 Hemoglobin A1C 4.3 - 5.6 % 5.2 Estimated Average Glucose mg/dL 103 TSH 0.270 - 4.200 mIU/L 0.988 Vitamin D 25 Hydroxy 31.0 - 80.0 ng/mL 31.6 1. Pneumonia of right upper lobe due to infectious organism (J18.9) - Recent hospitalization with CT scan confirming right upper lobe pneumonia. - Completed course of doxycycline; residual symptoms include mild cough, rhinorrhea, and fatigue. - Utilizing Tessalon Perles for cough management, nebulizer treatments BID, and Flonase with cetirizine for rhinorrhea. - Continues Spiriva and Symbicort inhalers; no current fever or pleuritic chest pain. - Auscultation reveals clear breath sounds. - Ordered chest X-ray to assess resolution of pneumonia. - Provided work release for dates through ; patient to resume part-time work with allowances for rest as needed. - Follow-up with pulmonology scheduled in August. Medical Decision Making: Problems: Moderate: Acute illness with systemic symptoms Data: Unique source(s) for external note(s) reviewed: 1 Unique test result(s) reviewed: 3+ Unique test(s) ordered: 1 Risk: Moderate: Drug management Medical Decision Making Level: 4 - Moderate Allergies As of Date: 04/18/2025 Noted Allergy Reaction DILAUDID (HYDROMORPHONE) 10/22/2023 16 - Unknown Comments: Had dilaudid during surgery once and it led to respiratory depression and very slow breathing - she had slow/difficult emergence from anesthesia d/t this LATEX 04/17/2014 4 - Hives 7 - Swelling 9 - Itching Comments: Localized PENICILLIN G 04/22/2011 16 - Unknown PENICILLINS 04/17/2011 2 - Rash 9 - Itching 12 - Shortness of Breath 4 - Hives Date Reviewed: 04/18/2025 Reviewed by: Adrian López APRN.TERMITE TECHNICIAN - Fully Assessed Reason for Visit: ER F/U [41] Cmt: [facility] ER 04/10/25 for pneumonia Needs a work excuse Missed 04/10/25 and worked 10 and on the she was sent home. Missed work form 11-today. Primary Visit Diagnosis:Pneumonia of right upper lobe due to infectious organism [J18.9] Order(s):XR CHEST 2V FRONTAL/LAT [[id number]] Order #: [id number] FUTURE Prescriptions as of 04/18/2025 - budesonide-formoterol (SYMBICORT) 160-4.5 mcg/actuation inhaler Inhale 1 puff as instructed two times a day. - cetirizine (ZYRTEC) 10 mg tablet Take 10 mg by mouth once daily. - albuterol HFA (PROAIR HFA) 90 mcg/actuation inhaler Inhale 2 puffs as instructed every 4 hours as needed. - benzonatate (TESSALON PERLE) 100 mg capsule Take 2 capsules by mouth three times a day as needed for cough. - furosemide (LASIX) 20 mg tablet Take 0.5-1 tablets by mouth once daily as needed. for swelling in feet - DULoxetine (CYMBALTA) 30 mg capsule Take 1 capsule by mouth every evening. - DULoxetine (CYMBALTA) 60 mg capsule Take 1 capsule by mouth every morning. - SUMAtriptan (IMITREX) 100 mg tablet Take 1 tablet by mouth as needed for migraine headache (see administration instructions). May repeat dose after 2 hours if needed. Maximum daily dose is 200 mg per day.TAKE 1 TABLET BY MOUTH AT ONSET OF HEADACHE MAY REPEAT IN 2 HOURS IF HEADACHE PERSISTS MAXIMUM DAILY DOSE OF 2 TABLETS ( 200 MILLIGRAMS ) EVERY 24 HOURS - tiZANidine (ZANAFLEX) 2 mg tablet Take 1 tablet by mouth once daily as needed. As directed - topiramate (TOPAMAX) 50 mg tablet Take 1 tablet by mouth every morning AND 2 tablets daily at bedtime. - fluticasone (FLONASE) 50 mcg/actuation nasal spray Use 2 Sprays in each nostril once daily. Rinse mouth after use. - gabapentin (NEURONTIN) 300 mg capsule Take 1 capsule by mouth every morning AND 2 capsules daily at bedtime AND 1 capsule every afternoon. Do all this for 180 days. As directed. - celecoxib (CELEBREX) 200 mg capsule Take 1 capsule by mouth two times a day. for hip and arthritic pain. Take with food - SPIRIVA RESPIMAT 2.5 mcg/actuation inhaler - meclizine (ANTIVERT) 25 mg tab 4 TIMES DAILY NEEDED as needed for Dizziness - OXYGEN, HOME THERAPY, 3 L/min by Nasal Cannula route as directed. At night - ARIPiprazole (ABILIFY) 15 mg tablet Take 1 tablet by mouth once daily. Dr. Rodriguez - Nebulizer Accessories kit Provide nebulizer kit. - albuterol (PROVENTIL) 2.5 mg /3 mL (0.083 %) nebulizer solution Use 3 mL via nebulizer four times daily as needed for Wheezing/Shortness of Breath. Inhale by nebulizer over 5-15 minutes - hydrOXYzine pamoate (VISTARIL) 25 mg capsule Take 2 capsules by mouth four times daily as needed. Dr. Rodriguez Problem List As Of Date 04/18/2025 Noted Resolved Lumbar radiculopathy [M54.16] 04/17/2011 DDD (degenerative disc disease), cervical [M50.*04/17/2011 DDD (degenerative disc disease), lumbar [M51.36*04/17/2011 Disc displacement, lumbar [M51.26] 04/17/2011 Cervical disc displacement [M50.20] 04/17/2011 Hematuria [R31.9] 11/25/2011 Chronic pelvic pain in female [R10.2, G89.29] 11/25/2011 Urgency of urination [R39.15] 11/25/2011 Frequency of urination [R35.0] 11/25/2011 OAB (overactive bladder) [N32.81] 11/25/2011 Smoking history [Z87.891] 11/25/2011 Asthma [J45.909] Migraine [G43.909] 04/02/2012 MDD (major depressive disorder), recurrent epis*08/05/2012 Alcohol dependence in remission (HCC) [F10.21] 08/05/2012 History of substance abuse (HCC) [F19.11] 08/05/2012 Snoring disorder [R06.83] 12/15/2012 Depression [F32.A] 06/11/2022 Right hip pain [M25.551] 08/04/2014 Thoracic myofascial strain [S29.019A] 01/10/2015 Edema of both legs [R60.0] 05/29/2015 Bilateral foot pain [M79.671, M79.672] 07/13/2015 Osteoarthritis of lumbar spine [M47.816] 08/22/2015 Altered bowel habits [R19.4] 10/28/2017 Class 2 obesity due to excess calories with bod*05/11/2018 Biliary dyskinesia [K82.8] 08/24/2018 Obesity, Class I, BMI 30-34.9 [E66.811] 05/23/2019 06/11/2022 Chronic bilateral low back pain with bilateral *09/01/2019 Class 2 obesity due to excess calories without *05/11/2018 11/30/2019 Pulmonary embolism (HCC) [I26.99] 05/29/2023 Mitral valve prolapse [I34.1] 10/22/2023 Class 3 severe obesity due to excess calories w*11/27/2023 Vitamin D deficiency [E55.9] 12/30/2023 Medications Discontinued During This Encounter Prescriptions - fluticasone-salmeterol (ADVAIR, WIXELA) 250-50 mcg/dose inhaler (Discontinued) Reported on 04/18/2025 - tamsulosin (FLOMAX) 0.4 mg (Discontinued) Take 1 capsule by mouth once daily. Level of Service: OFFICE/OUTPATIENT ESTABLISHED MOD MDM 30 MIN [52856] Additional E/M codes: VISIT CPLX INHERENT EANDM ASSOC WITH MED * Encounter Status:Closed by ADRIAN LÓPEZ on 04/18/25 CNCO Observed: 04/18/2025 12:00 AM Status: COMPLETED Source: [facility] Letter Text CNOV Observed: 04/05/2025 3:00 PM Status: COMPLETED Source: [facility] Office Visit (INTMWS) NIRMALYENNY VELASQUEZ ([id number]) 1960 F Date Time Provider Department 04/05/25 3:00 PM NEHA SHEPPARD INTMWS During your visit today, we recorded the following information about you: Temperature Pulse Respiration Blood pressure 98.6 degrees 108/minute 16/minute 110/66 Weight 105.1 kg Neha Sheppard APRN.TRAVEL REGISTERED NURSE ICU 04/05/2025 2:54 PM Signed SUBJECTIVE Yenny Marshall is a 64 year old female here today for an EC follow up. Chief Complaint Patient presents with: Recheck: urgent care visit 03/30/25 Negative for COVID , RSV. treated with prednisone. Shortness of breath worse in evening and feels really worn out HPI Yenny Marshall is a 64 year old female. She is an established patient of Soto Rushing MD. Here today for an EC follow up. Seen in EC on 03/30 for concerns of cough, congestion, wheezing. She had a chest xray that was normal and negative COVID, flu, RSV testing. Treated with prednisone. Symptoms had started about 1 week prior, so 2 weeks at this point. She is here today due to not feeling much better. Still with cough, wheeze, shortness of breath at times. Using her albuterol nebulizers and gets a little relief. She has a history of asthma. Her medications were reviewed today and her list is now up to date. Medications Current Outpatient Medications Medication Sig cetirizine (ZYRTEC) 10 mg tablet Take 10 mg by mouth once daily. furosemide (LASIX) 20 mg tablet Take 0.5-1 tablets by mouth once daily as needed. for swelling in feet DULoxetine (CYMBALTA) 30 mg capsule Take 1 capsule by mouth every evening. DULoxetine (CYMBALTA) 60 mg capsule Take 1 capsule by mouth every morning. SUMAtriptan (IMITREX) 100 mg tablet Take 1 tablet by mouth as needed for migraine headache (see administration instructions). May repeat dose after 2 hours if needed. Maximum daily dose is 200 mg per day.TAKE 1 TABLET BY MOUTH AT ONSET OF HEADACHE MAY REPEAT IN 2 HOURS IF HEADACHE PERSISTS MAXIMUM DAILY DOSE OF 2 TABLETS ( 200 MILLIGRAMS ) EVERY 24 HOURS tiZANidine (ZANAFLEX) 2 mg tablet Take 1 tablet by mouth once daily as needed. As directed topiramate (TOPAMAX) 50 mg tablet Take 1 tablet by mouth every morning AND 2 tablets daily at bedtime. fluticasone (FLONASE) 50 mcg/actuation nasal spray Use 2 Sprays in each nostril once daily. Rinse mouth after use. gabapentin (NEURONTIN) 300 mg capsule Take 1 capsule by mouth every morning AND 2 capsules daily at bedtime AND 1 capsule every afternoon. Do all this for 180 days. As directed. celecoxib (CELEBREX) 200 mg capsule Take 1 capsule by mouth two times a day. for hip and arthritic pain. Take with food SPIRIVA RESPIMAT 2.5 mcg/actuation inhaler meclizine (ANTIVERT) 25 mg tab 4 TIMES DAILY NEEDED as needed for Dizziness ARIPiprazole (ABILIFY) 15 mg tablet Take 1 tablet by mouth once daily. Dr. Rodriguez albuterol (PROVENTIL) 2.5 mg /3 mL (0.083 %) nebulizer solution Use 3 mL via nebulizer four times daily as needed for Wheezing/Shortness of Breath. Inhale by nebulizer over 5-15 minutes hydrOXYzine pamoate (VISTARIL) 25 mg capsule Take 2 capsules by mouth four times daily as needed. Dr. Rodriguez fluticasone-salmeterol (ADVAIR, WIXELA) 250-50 mcg/dose inhaler Inhale 1 puff as instructed two times a day. doxycycline monohydrate (MONODOX) 100 mg capsule Take 1 capsule by mouth two times a day for 7 days. albuterol HFA (PROAIR HFA) 90 mcg/actuation inhaler Inhale 2 puffs as instructed every 4 hours as needed. benzonatate (TESSALON PERLE) 100 mg capsule Take 2 capsules by mouth three times a day as needed for cough. tamsulosin (FLOMAX) 0.4 mg Take 1 capsule by mouth once daily. OXYGEN, HOME THERAPY, 3 L/min by Nasal Cannula route as directed. At night Nebulizer Accessories kit Provide nebulizer kit. No current facility-administered medications for this visit. ALLERGIES Allergen Reactions Dilaudid [Hydromorp* Unknown Had dilaudid during surgery once and it led to respiratory depression and very slow breathing - she had slow/difficult emergence from anesthesia d/t this Latex Hives, Swelling, Itching Localized Penicillin G Unknown Penicillins Rash, Itching, Shortness of Breath, Hives ACTIVE PROBLEM LIST Vitamin D Deficiency - 12/30/2023 Class 3 Severe Obesity Due to Excess Calories With Body Mass Index (Bmi) of 40.0 to 44.9 in Adult - 11/27/2023 Mitral Valve Prolapse - 10/22/2023 Pulmonary Embolism (Hcc) - 05/29/2023 Chronic Bilateral Low Back Pain With Bilateral Sciatica - 09/01/2019 Biliary Dyskinesia - 08/24/2018 Comment: Added automatically from request for surgery [id number] Class 2 Obesity Due to Excess Calories With Body Mass Index (Bmi) of 38.0 to 38.9 in Adult - 05/11/2018 Altered Bowel Habits - 10/28/2017 Comment: Added automatically from request for surgery [id number] Osteoarthritis of Lumbar Spine - 08/22/2015 Bilateral Foot Pain - 07/13/2015 Edema of Both Legs - 05/29/2015 Thoracic Myofascial Strain - 01/10/2015 Right Hip Pain - 08/04/2014 Snoring Disorder - 12/15/2012 Mdd (Major Depressive Disorder), Recurrent Episode - 08/05/2012 Comment: Dx made by Dr Rodriguez 06/2012, r/o Bipolar Disorder Alcohol Dependence in Remission ([facility]) - 08/05/2012 Comment: Dx per Dr Rodriguez 06/2012 History of substance abuse ([facility]) - 08/05/2012 Comment: In remission, Dx per Dr Rodriguez 06/2012 Migraine - 04/02/2012 Asthma (Hcc) Hematuria - 11/25/2011 Chronic Pelvic Pain in Female - 11/25/2011 Urgency of Urination - 11/25/2011 Frequency of Urination - 11/25/2011 Oab (Overactive Bladder) - 11/25/2011 Smoking History - 11/25/2011 Lumbar Radiculopathy - 04/17/2011 Ddd (Degenerative Disc Disease), Cervical - 04/17/2011 Ddd (Degenerative Disc Disease), Lumbar - 04/17/2011 Disc Displacement, Lumbar - 04/17/2011 Cervical Disc Displacement - 04/17/2011 Social History Tobacco Use Smoking status: Former Current packs/day: 0.00 Average packs/day: 1 pack/day for 48.8 years (48.8 ttl pk-yrs) Types: Cigarettes Start date: 11/02/1973 Quit date: 08/13/2022 Years since quittin.6 Smokeless tobacco: Never Tobacco comments: Started smoking at age 14, 1ppd. Both parents smokers. Vaping Use Vaping status: Never Used Substance Use Topics Alcohol use: Not Currently Comment: August 27, 2009 quit Drug use: No Comment: past history of cocaine and marijuana- quit 2008 Review of Systems Constitutional: Positive for fatigue. HENT: Positive for congestion. Negative for sinus pressure, sinus pain and sore throat. Respiratory: Positive for cough, chest tightness, shortness of breath and wheezing. Negative for apnea, choking and stridor. Cardiovascular: Negative. OBJECTIVE BP 110/66 Pulse 108 Temp (Src) 98.6 (Tympanic) Resp 16 Wt 231 lb 11.3 oz (105.1kg) SpO2 96% LMP 03/09/2013 Physical Exam Vitals and nursing note reviewed. Constitutional: General: She is awake. She is not in acute distress. Appearance: Normal appearance. She is well-developed and well-groomed. She is not ill-appearing, toxic-appearing or diaphoretic. HENT: Head: Normocephalic. Right Ear: External ear normal. Left Ear: External ear normal. Nose: Nose normal. Eyes: General: Vision grossly intact. Conjunctiva/sclera: Conjunctivae normal. Pupils: Pupils are equal, round, and reactive to light. Neck: Vascular: No JVD. Trachea: Trachea normal. Cardiovascular: Rate and Rhythm: Normal rate and regular rhythm. Pulses: Normal pulses. Heart sounds: Normal heart sounds. No murmur heard. Pulmonary: Effort: Pulmonary effort is normal. No accessory muscle usage, prolonged expiration or respiratory distress. Breath sounds: Examination of the right-middle field reveals wheezing. Examination of the left-middle field reveals wheezing. Examination of the right-lower field reveals wheezing. Examination of the left-lower field reveals wheezing. Wheezing present. Musculoskeletal: Cervical back: Neck supple. Skin: General: Skin is warm and dry. Capillary Refill: Capillary refill takes less than 2 seconds. Neurological: General: No focal deficit present. Mental Status: She is alert and oriented to person, place, and time. Mental status is at baseline. Psychiatric: Attention and Perception: Attention and perception normal. Mood and Affect: Mood and affect normal. Speech: Speech normal. Behavior: Behavior normal. Behavior is cooperative. Thought Content: Thought content normal. Cognition and Memory: Cognition and memory normal. Judgment: Judgment normal. ASSESSMENT/PLAN: 1. Mild asthma with exacerbation, unspecified whether persistent (HCC) - ICD9: 493.92, ICD10: J45.901 (primary diagnosis) - Mild persistent asthma acute excacerbation without status and no respiratory distress - Continue current medications - Start fluticasone-salmeterol HFA (ADVAIR HFA), advised to rinse mouth after use - Albuterol PRN - Avoidance of triggers recommended - Follow up should any other issues arise. - FLUTICASONE 250 MCG-SALMETEROL 50 MCG/DOSE BLISTR POWDR FOR INHALATION - DOXYCYCLINE MONOHYDRATE 100 MG CAPSULE - ALBUTEROL SULFATE HFA 90 MCG/ACTUATION AEROSOL INHALER 2. Sinobronchitis - ICD9: 473.9, 490, ICD10: J32.9, J40 - Will begin treatment with Doxycycline - Supportive care with plenty of fluids, rest, and analgesia prn. - FLUTICASONE 250 MCG-SALMETEROL 50 MCG/DOSE BLISTR POWDR FOR INHALATION - DOXYCYCLINE MONOHYDRATE 100 MG CAPSULE - ALBUTEROL SULFATE HFA 90 MCG/ACTUATION AEROSOL INHALER - BENZONATATE 100 MG CAPSULE Portions of this note have been entered by ancillary staff. I have reviewed and when necessary edited, so that they are an adequate record of my encounter with this patient Please note that parts of this document were created using voice recognition software and therefore may contain grammatical errors. Patient verbalizes understanding of instructions from today's visit and in agreement with treatment plan. Questions answered. Agrees to call the office if questions, concerns of issues with acute symptoms not improving or if they worsen. See diagnoses and orders for additional plan(s). Allergies and medications were reviewed, list was updated, and refills given if needed. Past medical, surgical, social, and family history reviewed and updated as appropriate. Encouraged proper diet AND exercise as well as compliance with taking medications. Age-appropriate health preventative measures were discussed. Return if symptoms worsen or fail to improve, for Keep next scheduled appointment.. Neha Sheppard APRN-[facility]URSE ICU Allergies As of Date: 04/05/2025 Noted Allergy Reaction DILAUDID (HYDROMORPHONE) 10/22/2023 16 - Unknown Comments: Had dilaudid during surgery once and it led to respiratory depression and very slow breathing - she had slow/difficult emergence from anesthesia d/t this LATEX 04/17/2014 4 - Hives 7 - Swelling 9 - Itching Comments: Localized PENICILLIN G 04/22/2011 16 - Unknown PENICILLINS 04/17/2011 2 - Rash 9 - Itching 12 - Shortness of Breath 4 - Hives Date Reviewed: 04/05/2025 Reviewed by: Neha Sheppard APRN.[facility] NURSE ICU - Fully Assessed Reason for Visit: Recheck [92] Cmt: urgent care visit 03/30/25 Negative for COVID , RSV. treated with prednisone. Shortness of breath worse in evening and feels really worn out Primary Visit Diagnosis:Mild asthma with exacerbation, unspecified whether persistent ([facility]) [J45.901] Other Visit Diagnosis:Sinobronchitis [J32.9, J40] Order(s):fluticasone-salmeterol (ADVAIR, WIXELA) 250-50 mcg/dose inhalerInhale 1 puff as instructed two times a day.Disp: 60 eachRfl: 2 doxycycline monohydrate (MONODOX) 100 mg capsuleTake 1 capsule by mouth two times a day for 7 days.Disp: 14 capsuleRfl: 0 albuterol HFA (PROAIR HFA) 90 mcg/actuation inhalerInhale 2 puffs as instructed every 4 hours as needed.Disp: 18 gRfl: 0 benzonatate (TESSALON PERLE) 100 mg capsuleTake 2 capsules by mouth three times a day as needed for cough.Disp: 90 capsuleRfl: 1 Prescriptions as of 04/05/2025 - cetirizine (ZYRTEC) 10 mg tablet Take 10 mg by mouth once daily. - fluticasone-salmeterol (ADVAIR, WIXELA) 250-50 mcg/dose inhaler Inhale 1 puff as instructed two times a day. - doxycycline monohydrate (MONODOX) 100 mg capsule Take 1 capsule by mouth two times a day for 7 days. - albuterol HFA (PROAIR HFA) 90 mcg/actuation inhaler Inhale 2 puffs as instructed every 4 hours as needed. - benzonatate (TESSALON PERLE) 100 mg capsule Take 2 capsules by mouth three times a day as needed for cough. - tamsulosin (FLOMAX) 0.4 mg Take 1 capsule by mouth once daily. - furosemide (LASIX) 20 mg tablet Take 0.5-1 tablets by mouth once daily as needed. for swelling in feet - DULoxetine (CYMBALTA) 30 mg capsule Take 1 capsule by mouth every evening. - DULoxetine (CYMBALTA) 60 mg capsule Take 1 capsule by mouth every morning. - SUMAtriptan (IMITREX) 100 mg tablet Take 1 tablet by mouth as needed for migraine headache (see administration instructions). May repeat dose after 2 hours if needed. Maximum daily dose is 200 mg per day.TAKE 1 TABLET BY MOUTH AT ONSET OF HEADACHE MAY REPEAT IN 2 HOURS IF HEADACHE PERSISTS MAXIMUM DAILY DOSE OF 2 TABLETS ( 200 MILLIGRAMS ) EVERY 24 HOURS - tiZANidine (ZANAFLEX) 2 mg tablet Take 1 tablet by mouth once daily as needed. As directed - topiramate (TOPAMAX) 50 mg tablet Take 1 tablet by mouth every morning AND 2 tablets daily at bedtime. - fluticasone (FLONASE) 50 mcg/actuation nasal spray Use 2 Sprays in each nostril once daily. Rinse mouth after use. - gabapentin (NEURONTIN) 300 mg capsule Take 1 capsule by mouth every morning AND 2 capsules daily at bedtime AND 1 capsule every afternoon. Do all this for 180 days. As directed. - celecoxib (CELEBREX) 200 mg capsule Take 1 capsule by mouth two times a day. for hip and arthritic pain. Take with food - SPIRIVA RESPIMAT 2.5 mcg/actuation inhaler - meclizine (ANTIVERT) 25 mg tab 4 TIMES DAILY NEEDED as needed for Dizziness - OXYGEN, HOME THERAPY, 3 L/min by Nasal Cannula route as directed. At night - ARIPiprazole (ABILIFY) 15 mg tablet Take 1 tablet by mouth once daily. Dr. Rodriguez - Nebulizer Accessories kit Provide nebulizer kit. - albuterol (PROVENTIL) 2.5 mg /3 mL (0.083 %) nebulizer solution Use 3 mL via nebulizer four times daily as needed for Wheezing/Shortness of Breath. Inhale by nebulizer over 5-15 minutes - hydrOXYzine pamoate (VISTARIL) 25 mg capsule Take 2 capsules by mouth four times daily as needed. Dr. Rodriguez Problem List As Of Date 04/05/2025 Noted Resolved Lumbar radiculopathy [M54.16] 04/17/2011 DDD (degenerative disc disease), cervical [M50.*04/17/2011 DDD (degenerative disc disease), lumbar [M51.36*04/17/2011 Disc displacement, lumbar [M51.26] 04/17/2011 Cervical disc displacement [M50.20] 04/17/2011 Hematuria [R31.9] 11/25/2011 Chronic pelvic pain in female [R10.2, G89.29] 11/25/2011 Urgency of urination [R39.15] 11/25/2011 Frequency of urination [R35.0] 11/25/2011 OAB (overactive bladder) [N32.81] 11/25/2011 Smoking history [Z87.891] 11/25/2011 Asthma [J45.909] Migraine [G43.909] 04/02/2012 MDD (major depressive disorder), recurrent epis*08/05/2012 Alcohol dependence in remission (HCC) [F10.21] 08/05/2012 History of substance abuse (HCC) [F19.11] 08/05/2012 Snoring disorder [R06.83] 12/15/2012 Depression [F32.A] 06/11/2022 Right hip pain [M25.551] 08/04/2014 Thoracic myofascial strain [S29.019A] 01/10/2015 Edema of both legs [R60.0] 05/29/2015 Bilateral foot pain [M79.671, M79.672] 07/13/2015 Osteoarthritis of lumbar spine [M47.816] 08/22/2015 Altered bowel habits [R19.4] 10/28/2017 Class 2 obesity due to excess calories with bod*05/11/2018 Biliary dyskinesia [K82.8] 08/24/2018 Obesity, Class I, BMI 30-34.9 [E66.811] 05/23/2019 06/11/2022 Chronic bilateral low back pain with bilateral *09/01/2019 Class 2 obesity due to excess calories without *05/11/2018 11/30/2019 Pulmonary embolism (HCC) [I26.99] 05/29/2023 Mitral valve prolapse [I34.1] 10/22/2023 Class 3 severe obesity due to excess calories w*11/27/2023 Vitamin D deficiency [E55.9] 12/30/2023 Prescriptions ordered this encounter Disp Refills Start End FLUTICASONE 250 MCG-SALMETEROL 50 MC* 60 e* 2 04/05/2025 Route: INH Sig: Inhale 1 puff as instructed two times a day. DOXYCYCLINE MONOHYDRATE 100 MG CAPSU* 14 c* 0 04/05/2025 04/12/2025 Route: PO Sig: Take 1 capsule by mouth two times a day for 7 days. ALBUTEROL SULFATE HFA 90 MCG/ACTUATI* 18 g 0 04/05/2025 Cmt: Generic or brand: dispense inhaler preferred by patient/insurance unless ANUM flag is selected. Route: INH Sig: Inhale 2 puffs as instructed every 4 hours as needed. BENZONATATE 100 MG CAPSULE 90 c* 1 04/05/2025 Route: PO Sig: Take 2 capsules by mouth three times a day as needed for cough. Medications Discontinued During This Encounter Prescriptions - predniSONE (DELTASONE) 10 mg tablet (Discontinued) Take 2 tabs po BID for 2 days then 1 tab po BID for 2 days then 1/2 tab po BID for 2 days then 1/2 tab daily for 2 days then stop - albuterol HFA (PROAIR HFA) 90 mcg/actuation inhaler (Discontinued) Inhale 2 Puffs as instructed every 4 hours as needed. Disposition: Return if symptoms worsen or fail to improve, for Keep next scheduled appointment.. Follow-up and Disposition History for Encounter Date Provider Department Center 04/05/2025 [id number], ROSA BRICE [facility]avarria [facility] Encounter Status:Closed by NEHA SHEPPARD on 04/05/25 PROGRESS Observed: 04/05/2025 2:33 PM Status: COMPLETED Source: [facility] HNO ID: [id number] Author: NEHA SHEPPARD APRN.[facility]URSE ICU Service: ? Author Type: Nurse Practitioner Type: Progress Notes Filed: 04/05/2025 14:54 Note Text: SUBJECTIVE Yenny Marshall is a 64 year old female here today for an EC follow up. Chief Complaint Patient presents with: Recheck: urgent care visit 03/30/25 Negative for COVID , RSV. treated with prednisone. Shortness of breath worse in evening and feels really worn out HPI Yenny Marshall is a 64 year old female. She is an established patient of Soto Rushing MD. Here today for an EC follow up. Seen in EC on 03/30 for concerns of cough, congestion, wheezing. She had a chest xray that was normal and negative COVID, flu, RSV testing. Treated with prednisone. Symptoms had started about 1 week prior, so 2 weeks at this point. She is here today due to not feeling much better. Still with cough, wheeze, shortness of breath at times. Using her albuterol nebulizers and gets a little relief. She has a history of asthma. Her medications were reviewed today and her list is now up to date. Medications Current Outpatient Medications Medication Sig cetirizine (ZYRTEC) 10 mg tablet Take 10 mg by mouth once daily. furosemide (LASIX) 20 mg tablet Take 0.5-1 tablets by mouth once daily as needed. for swelling in feet DULoxetine (CYMBALTA) 30 mg capsule Take 1 capsule by mouth every evening. DULoxetine (CYMBALTA) 60 mg capsule Take 1 capsule by mouth every morning. SUMAtriptan (IMITREX) 100 mg tablet Take 1 tablet by mouth as needed for migraine headache (see administration instructions). May repeat dose after 2 hours if needed. Maximum daily dose is 200 mg per day.TAKE 1 TABLET BY MOUTH AT ONSET OF HEADACHE MAY REPEAT IN 2 HOURS IF HEADACHE PERSISTS MAXIMUM DAILY DOSE OF 2 TABLETS ( 200 MILLIGRAMS ) EVERY 24 HOURS tiZANidine (ZANAFLEX) 2 mg tablet Take 1 tablet by mouth once daily as needed. As directed topiramate (TOPAMAX) 50 mg tablet Take 1 tablet by mouth every morning AND 2 tablets daily at bedtime. fluticasone (FLONASE) 50 mcg/actuation nasal spray Use 2 Sprays in each nostril once daily. Rinse mouth after use. gabapentin (NEURONTIN) 300 mg capsule Take 1 capsule by mouth every morning AND 2 capsules daily at bedtime AND 1 capsule every afternoon. Do all this for 180 days. As directed. celecoxib (CELEBREX) 200 mg capsule Take 1 capsule by mouth two times a day. for hip and arthritic pain. Take with food SPIRIVA RESPIMAT 2.5 mcg/actuation inhaler meclizine (ANTIVERT) 25 mg tab 4 TIMES DAILY NEEDED as needed for Dizziness ARIPiprazole (ABILIFY) 15 mg tablet Take 1 tablet by mouth once daily. Dr. Rodriguez albuterol (PROVENTIL) 2.5 mg /3 mL (0.083 %) nebulizer solution Use 3 mL via nebulizer four times daily as needed for Wheezing/Shortness of Breath. Inhale by nebulizer over 5-15 minutes hydrOXYzine pamoate (VISTARIL) 25 mg capsule Take 2 capsules by mouth four times daily as needed. Dr. Rodriguez fluticasone-salmeterol (ADVAIR, WIXELA) 250-50 mcg/dose inhaler Inhale 1 puff as instructed two times a day. doxycycline monohydrate (MONODOX) 100 mg capsule Take 1 capsule by mouth two times a day for 7 days. albuterol HFA (PROAIR HFA) 90 mcg/actuation inhaler Inhale 2 puffs as instructed every 4 hours as needed. benzonatate (TESSALON PERLE) 100 mg capsule Take 2 capsules by mouth three times a day as needed for cough. tamsulosin (FLOMAX) 0.4 mg Take 1 capsule by mouth once daily. OXYGEN, HOME THERAPY, 3 L/min by Nasal Cannula route as directed. At night Nebulizer Accessories kit Provide nebulizer kit. No current facility-administered medications for this visit. ALLERGIES Allergen Reactions Dilaudid [Hydromorp* Unknown Had dilaudid during surgery once and it led to respiratory depression and very slow breathing - she had slow/difficult emergence from anesthesia d/t this Latex Hives, Swelling, Itching Localized Penicillin G Unknown Penicillins Rash, Itching, Shortness of Breath, Hives ACTIVE PROBLEM LIST Vitamin D Deficiency - 12/30/2023 Class 3 Severe Obesity Due to Excess Calories With Body Mass Index (Bmi) of 40.0 to 44.9 in Adult - 11/27/2023 Mitral Valve Prolapse - 10/22/2023 Pulmonary Embolism (Hcc) - 05/29/2023 Chronic Bilateral Low Back Pain With Bilateral Sciatica - 09/01/2019 Biliary Dyskinesia - 08/24/2018 Comment: Added automatically from request for surgery [id number] Class 2 Obesity Due to Excess Calories With Body Mass Index (Bmi) of 38.0 to 38.9 in Adult - 05/11/2018 Altered Bowel Habits - 10/28/2017 Comment: Added automatically from request for surgery [id number] Osteoarthritis of Lumbar Spine - 08/22/2015 Bilateral Foot Pain - 07/13/2015 Edema of Both Legs - 05/29/2015 Thoracic Myofascial Strain - 01/10/2015 Right Hip Pain - 08/04/2014 Snoring Disorder - 12/15/2012 Mdd (Major Depressive Disorder), Recurrent Episode - 08/05/2012 Comment: Dx made by Dr Rodriguez 06/2012, r/o Bipolar Disorder Alcohol Dependence in Remission ([facility]) - 08/05/2012 Comment: Dx per Dr Rodriguez 06/2012 History of substance abuse ([facility]) - 08/05/2012 Comment: In remission, Dx per Dr Rodriguez 06/2012 Migraine - 04/02/2012 Asthma ([facility]) Hematuria - 11/25/2011 Chronic Pelvic Pain in Female - 11/25/2011 Urgency of Urination - 11/25/2011 Frequency of Urination - 11/25/2011 Oab (Overactive Bladder) - 11/25/2011 Smoking History - 11/25/2011 Lumbar Radiculopathy - 04/17/2011 Ddd (Degenerative Disc Disease), Cervical - 04/17/2011 Ddd (Degenerative Disc Disease), Lumbar - 04/17/2011 Disc Displacement, Lumbar - 04/17/2011 Cervical Disc Displacement - 04/17/2011 Social History Tobacco Use Smoking status: Former Current packs/day: 0.00 Average packs/day: 1 pack/day for 48.8 years (48.8 ttl pk-yrs) Types: Cigarettes Start date: 11/02/1973 Quit date: 08/13/2022 Years since quittin.6 Smokeless tobacco: Never Tobacco comments: Started smoking at age 14, 1ppd. Both parents smokers. Vaping Use Vaping status: Never Used Substance Use Topics Alcohol use: Not Currently Comment: August 27, 2009 quit Drug use: No Comment: past history of cocaine and marijuana- quit 2008 Review of Systems Constitutional: Positive for fatigue. HENT: Positive for congestion. Negative for sinus pressure, sinus pain and sore throat. Respiratory: Positive for cough, chest tightness, shortness of breath and wheezing. Negative for apnea, choking and stridor. Cardiovascular: Negative. OBJECTIVE BP 110/66 Pulse 108 Temp (Src) 98.6 (Tympanic) Resp 16 Wt 231 lb 11.3 oz (105.1kg) SpO2 96% LMP 03/09/2013 Physical Exam Vitals and nursing note reviewed. Constitutional: General: She is awake. She is not in acute distress. Appearance: Normal appearance. She is well-developed and well-groomed. She is not ill-appearing, toxic-appearing or diaphoretic. HENT: Head: Normocephalic. Right Ear: External ear normal. Left Ear: External ear normal. Nose: Nose normal. Eyes: General: Vision grossly intact. Conjunctiva/sclera: Conjunctivae normal. Pupils: Pupils are equal, round, and reactive to light. Neck: Vascular: No JVD. Trachea: Trachea normal. Cardiovascular: Rate and Rhythm: Normal rate and regular rhythm. Pulses: Normal pulses. Heart sounds: Normal heart sounds. No murmur heard. Pulmonary: Effort: Pulmonary effort is normal. No accessory muscle usage, prolonged expiration or respiratory distress. Breath sounds: Examination of the right-middle field reveals wheezing. Examination of the left-middle field reveals wheezing. Examination of the right-lower field reveals wheezing. Examination of the left-lower field reveals wheezing. Wheezing present. Musculoskeletal: Cervical back: Neck supple. Skin: General: Skin is warm and dry. Capillary Refill: Capillary refill takes less than 2 seconds. Neurological: General: No focal deficit present. Mental Status: She is alert and oriented to person, place, and time. Mental status is at baseline. Psychiatric: Attention and Perception: Attention and perception normal. Mood and Affect: Mood and affect normal. Speech: Speech normal. Behavior: Behavior normal. Behavior is cooperative. Thought Content: Thought content normal. Cognition and Memory: Cognition and memory normal. Judgment: Judgment normal. ASSESSMENT/PLAN: 1. Mild asthma with exacerbation, unspecified whether persistent (HCC) - ICD9: 493.92, ICD10: J45.901 (primary diagnosis) - Mild persistent asthma acute excacerbation without status and no respiratory distress - Continue current medications - Start fluticasone-salmeterol HFA (ADVAIR HFA), advised to rinse mouth after use - Albuterol PRN - Avoidance of triggers recommended - Follow up should any other issues arise. - FLUTICASONE 250 MCG-SALMETEROL 50 MCG/DOSE BLISTR POWDR FOR INHALATION - DOXYCYCLINE MONOHYDRATE 100 MG CAPSULE - ALBUTEROL SULFATE HFA 90 MCG/ACTUATION AEROSOL INHALER 2. Sinobronchitis - ICD9: 473.9, 490, ICD10: J32.9, J40 - Will begin treatment with Doxycycline - Supportive care with plenty of fluids, rest, and analgesia prn. - FLUTICASONE 250 MCG-SALMETEROL 50 MCG/DOSE BLISTR POWDR FOR INHALATION - DOXYCYCLINE MONOHYDRATE 100 MG CAPSULE - ALBUTEROL SULFATE HFA 90 MCG/ACTUATION AEROSOL INHALER - BENZONATATE 100 MG CAPSULE Portions of this note have been entered by ancillary staff. I have reviewed and when necessary edited, so that they are an adequate record of my encounter with this patient Please note that parts of this document were created using voice recognition software and therefore may contain grammatical errors. Patient verbalizes understanding of instructions from today's visit and in agreement with treatment plan. Questions answered. Agrees to call the office if questions, concerns of issues with acute symptoms not improving or if they worsen. See diagnoses and orders for additional plan(s). Allergies and medications were reviewed, list was updated, and refills given if needed. Past medical, surgical, social, and family history reviewed and updated as appropriate. Encouraged proper diet AND exercise as well as compliance with taking medications. Age-appropriate health preventative measures were discussed. Return if symptoms worsen or fail to improve, for Keep next scheduled appointment.. Neha Sheppard APRN-[facility] NURSE ICU CNPN Observed: 04/05/2025 12:00 AM Status: COMPLETED Source: [facility] Telephone (INTMWS) ROLANDOYENNY Jeff ([id number]) 1960 F Date Time Provider Department 04/05/25 NEHA SHEPPARD INTMWS During your visit today, we recorded the following information about you: Nury Browning RN 04/05/2025 3:46 PM Signed Simran pharmacist with [facility] pharmacy calling in regards to new script that was sent over for Advair. Simran calling to see if provider was aware that pt is already on Symbicort 160 mg/4.5 using 2 puffs once daily. Simran states this was ordered from [facility] Julia Coello. Msg to Neha. Attempted to contact pt to confirm she is using the Symbicort before adding it back to her med list. No answer. LM to return the call. Per Neha: I was not aware since we didn't have it on the med list! We can have her switch from Symbicort to the Advair and see if it better controls her symptoms with her exacerbation right now. Called and spoke with Simran again at [facility] pharmacy. Notified to discontinue pt's Symbicort and fill the Advair. Asked for her to be sure to tell pt of this change as we have not been able to get a hold of the patient. She states she will make a note so that when pt picks up her meds, she will get that msg. Lucy Acosta RN 04/05/2025 4:02 PM Signed Patient returned call. Voices understanding to switch from Symbicort to the Advair and see if it better controls her symptoms with her exacerbation right now. She will corn picker the Advair at the pharmacy. Lucy Acosta RN Allergies As of Date: 04/05/2025 Noted Allergy Reaction DILAUDID (HYDROMORPHONE) 10/22/2023 16 - Unknown Comments: Had dilaudid during surgery once and it led to respiratory depression and very slow breathing - she had slow/difficult emergence from anesthesia d/t this LATEX 04/17/2014 4 - Hives 7 - Swelling 9 - Itching Comments: Localized PENICILLIN G 04/22/2011 16 - Unknown PENICILLINS 04/17/2011 2 - Rash 9 - Itching 12 - Shortness of Breath 4 - Hives Date Reviewed: 04/05/2025 Reviewed by: Neha Sheppard APRN.[facility] NURSE ICU - Fully Assessed Reason for Visit: Medication Question [1478] Cmt: re: Symbicort and Advair Prescriptions as of 04/05/2025 - cetirizine (ZYRTEC) 10 mg tablet Take 10 mg by mouth once daily. - fluticasone-salmeterol (ADVAIR, WIXELA) 250-50 mcg/dose inhaler Inhale 1 puff as instructed two times a day. - doxycycline monohydrate (MONODOX) 100 mg capsule Take 1 capsule by mouth two times a day for 7 days. - albuterol HFA (PROAIR HFA) 90 mcg/actuation inhaler Inhale 2 puffs as instructed every 4 hours as needed. - benzonatate (TESSALON PERLE) 100 mg capsule Take 2 capsules by mouth three times a day as needed for cough. - tamsulosin (FLOMAX) 0.4 mg Take 1 capsule by mouth once daily. - furosemide (LASIX) 20 mg tablet Take 0.5-1 tablets by mouth once daily as needed. for swelling in feet - DULoxetine (CYMBALTA) 30 mg capsule Take 1 capsule by mouth every evening. - DULoxetine (CYMBALTA) 60 mg capsule Take 1 capsule by mouth every morning. - SUMAtriptan (IMITREX) 100 mg tablet Take 1 tablet by mouth as needed for migraine headache (see administration instructions). May repeat dose after 2 hours if needed. Maximum daily dose is 200 mg per day.TAKE 1 TABLET BY MOUTH AT ONSET OF HEADACHE MAY REPEAT IN 2 HOURS IF HEADACHE PERSISTS MAXIMUM DAILY DOSE OF 2 TABLETS ( 200 MILLIGRAMS ) EVERY 24 HOURS - tiZANidine (ZANAFLEX) 2 mg tablet Take 1 tablet by mouth once daily as needed. As directed - topiramate (TOPAMAX) 50 mg tablet Take 1 tablet by mouth every morning AND 2 tablets daily at bedtime. - fluticasone (FLONASE) 50 mcg/actuation nasal spray Use 2 Sprays in each nostril once daily. Rinse mouth after use. - gabapentin (NEURONTIN) 300 mg capsule Take 1 capsule by mouth every morning AND 2 capsules daily at bedtime AND 1 capsule every afternoon. Do all this for 180 days. As directed. - celecoxib (CELEBREX) 200 mg capsule Take 1 capsule by mouth two times a day. for hip and arthritic pain. Take with food - SPIRIVA RESPIMAT 2.5 mcg/actuation inhaler - meclizine (ANTIVERT) 25 mg tab 4 TIMES DAILY NEEDED as needed for Dizziness - OXYGEN, HOME THERAPY, 3 L/min by Nasal Cannula route as directed. At night - ARIPiprazole (ABILIFY) 15 mg tablet Take 1 tablet by mouth once daily. Dr. Rodrigeuz - Nebulizer Accessories kit Provide nebulizer kit. - albuterol (PROVENTIL) 2.5 mg /3 mL (0.083 %) nebulizer solution Use 3 mL via nebulizer four times daily as needed for Wheezing/Shortness of Breath. Inhale by nebulizer over 5-15 minutes - hydrOXYzine pamoate (VISTARIL) 25 mg capsule Take 2 capsules by mouth four times daily as needed. Dr. Rodriguez Problem List As Of Date 04/05/2025 Noted Resolved Lumbar radiculopathy [M54.16] 04/17/2011 DDD (degenerative disc disease), cervical [M50.*04/17/2011 DDD (degenerative disc disease), lumbar [M51.36*04/17/2011 Disc displacement, lumbar [M51.26] 04/17/2011 Cervical disc displacement [M50.20] 04/17/2011 Hematuria [R31.9] 11/25/2011 Chronic pelvic pain in female [R10.2, G89.29] 11/25/2011 Urgency of urination [R39.15] 11/25/2011 Frequency of urination [R35.0] 11/25/2011 OAB (overactive bladder) [N32.81] 11/25/2011 Smoking history [Z87.891] 11/25/2011 Asthma [J45.909] Migraine [G43.909] 04/02/2012 MDD (major depressive disorder), recurrent epis*08/05/2012 Alcohol dependence in remission (HCC) [F10.21] 08/05/2012 History of substance abuse (HCC) [F19.11] 08/05/2012 Snoring disorder [R06.83] 12/15/2012 Depression [F32.A] 06/11/2022 Right hip pain [M25.551] 08/04/2014 Thoracic myofascial strain [S29.019A] 01/10/2015 Edema of both legs [R60.0] 05/29/2015 Bilateral foot pain [M79.671, M79.672] 07/13/2015 Osteoarthritis of lumbar spine [M47.816] 08/22/2015 Altered bowel habits [R19.4] 10/28/2017 Class 2 obesity due to excess calories with bod*05/11/2018 Biliary dyskinesia [K82.8] 08/24/2018 Obesity, Class I, BMI 30-34.9 [E66.811] 05/23/2019 06/11/2022 Chronic bilateral low back pain with bilateral *09/01/2019 Class 2 obesity due to excess calories without *05/11/2018 11/30/2019 Pulmonary embolism (HCC) [I26.99] 05/29/2023 Mitral valve prolapse [I34.1] 10/22/2023 Class 3 severe obesity due to excess calories w*11/27/2023 Vitamin D deficiency [E55.9] 12/30/2023 Encounter Status:Closed by LUCY ACOSTA on 04/05/25 XR CHEST 2V FRONTAL/LAT Observed: 2024 11:51 AM Status: F Source: [facility] * * *Final Report* * * DATE OF EXAM: Mar 30 2025 11:51AM WOX [id number] - XR CHEST 2V FRONTAL/LAT / PROCEDURE REASON: Rhonchi * * * * Physician Interpretation * * * * EXAMINATION: CHEST RADIOGRAPH (2 VIEW FRONTAL and LATERAL) CLINICAL HISTORY: Rhonchi MQ: [id number] EXAM DATE/TIME: 03/30/2025 11:51 AM COMPARISON: Chest x-ray on 06/08/2024 RESULT: Lines, tubes, and devices: None. Lungs and pleura: No consolidation. No lung mass. No pleural effusion. No pneumothorax. There are large pericardial fat pads. Cardiomediastinal silhouette: Normal cardiomediastinal silhouette. Bones and soft tissues: There are degenerative changes in the spine. IMPRESSION: Stable exam without acute findings. Apparatus Cleaner: RYAN Transcribe Date/Time: Mar 30 2025 11:53A Dictated by : JON LUONG MD This examination was interpreted and the report reviewed and electronically signed by: JON LUONG MD on Mar 30 2025 11:56AM EST [id number] Observed: 03/30/2025 11:50 AM Status: COMPLETED Source: [facility] HNO ID: [id number] Author: NUBIA BELTRAN RT(R) Service: ? Author Type: Trench Shovel Operator Type: Progress Notes Filed: 03/30/2025 11:50 Note Text: Radiology Service Progress Note PATIENT NAME: Yenny Marshall DATE OF SERVICE: March 30, 2025 TIME: 11:41 AM PATIENT IDENTITY VERIFICATION COMPLETED USING TWO (2) IDENTIFIERS: Name and Date of confirmed by patient verbally. FALL SCREENING: Has the patient had 2 falls in the last year or 1 fall with injury or currently using an Ambulatory Assistive Device (Walker, Cane, Wheelchair, Crutches, etc.)? No PATIENT GENDER DATA: Assigned female at . status: : No status: NO. PATIENT RELEVANT IMPLANT DATA REVIEWED: Yes PATIENT PRESENTS WITH AN IMPLANTABLE OR ATTACHED CLUB STEWARD: No RADIOLOGY DEPARTMENT: General X-ray: Exam(s) Completed: Chest X-Ray PERIPHERAL IV DATA: Not applicable SIGNED BY: RT Mireille(R) March 30, 2025 11:41 AM FLUABV+SARS-COV-2+RSV PNL RE SP JEANETTE+PROBE Observed: 03/30/2025 11:49 AM Status: F Source: [facility] SARS-COV-2 (AGENT OF COVID-1 9) RNA: Not detectedINFLUENZA A RNA: Not detectedINFLUENZA B RNA: Not detectedRESPIRATORY SYNCYTIAL VIRUS (RSV) RNA: Not detected Performed By: #### [id number] # ### [facility] CLIA [id number] [address] [place] [address] [place] [address] [place] PROGRESS Observed: 03/30/2025 11:33 AM Status: COMPLETED Source: [facility] HNO ID: [id number] Author: KORI HUNT APRN.TRAVEL REGISTERED NURSE ICU Service: ? Author Type: Nurse Practitioner Type: Progress Notes Filed: 03/30/2025 13:12 Note Text: [facility] Subjective HPI HPI Yenny Marshall is a 64 year old female who presents today for CC of cough, st, h/a, diarrhea. This started this AM. Has tried nothing for relief. Symptoms are worsened by nothing. Risk factors hx of asthma. .Patient presents with: Cough: ST, NIELSEN x last night, diarrhea x this AM PAST MEDICAL HISTORY Diagnosis Date Arrhythmia Asthma (HCC) Blood dyscrasia Cervical disc displacement 04/17/2011 Chronic obstructive pulmonary disease (COPD) ([facility]) Class 2 obesity due to excess calories without serious comorbidity with body mass index (BMI) of 37.0 to 37.9 in adult 05/11/2018 Degenerative disk disease bulging disks Depression Foot fracture, right 2002 Fell off ladder and fractured right foot H/O ETOH abuse In remission/recovery over 10 years (as of 11/2019) Lactose intolerance Lumbar radiculopathy 04/17/2011 Migraine 04/02/2012 Mitral valve prolapse KALPESH (obstructive sleep apnea) 12/15/2012 KALPESH (obstructive sleep apnea) 12/15/2012 SLEEP ARCHITECTURE: PSG 10/05/2012 The study started at 22:34:01 and ended at 06:39:39. Total sleep time was 405 minutes resulting in a sleep efficiency of 92.2% (TRT = 439 m). There were 14 awakenings with a total time awake after sleep onset of 11.0 minutes. The sleep latency was 23.0 minutes and the REM latency was 308 minutes. Snoring Substance abuse (HCC) In remission >10 years (as of 11/2019) PAST SURGICAL HISTORY Procedure Laterality Date COLONOSCOPY FLX DX W/COLLJ SPEC WHEN PFRMD 11/25/2017 Colonoscopy EXTENSIVE FOOT SURGERY 2002,2004 right foot due to fall from ladder KNEE LEFT OP SURGERY 2004 Growth on left tibia removed, non cancerous LAPAROSCOPY SURG CHOLECYSTECTOMY 09/06/2018 Cholecystectomy, lap NOSE basal cell removal PAST SURGICAL HISTORY OF 12/1982 tubal ligation PAST SURGICAL HISTORY OF 04/03/2013 DANN, BSO, cyctoscopy 04/2013 PAST SURGICAL HISTORY OF 2012 reconstruction of urethra PAST SURGICAL HISTORY OF lumbar injections- Dr Kimball TOOTH EXTRACTION TOTAL KNEE REPLACEMENT Right 11/27/2023 Robotic assisted Right total knee replacement ALLERGIES Dilaudid [Hydromorphone], Latex, Penicillin G, and Penicillins MEDICATIONS predniSONE (DELTASONE) 10 mg tablet Take 2 tabs po BID for 2 days then 1 tab po BID for 2 days then 1/2 tab po BID for 2 days then 1/2 tab daily for 2 days then stop (Patient not taking: Reported on 03/30/2025) albuterol HFA (PROAIR HFA) 90 mcg/actuation inhaler Inhale 2 Puffs as instructed every 4 hours as needed. tamsulosin (FLOMAX) 0.4 mg Take 1 capsule by mouth once daily. furosemide (LASIX) 20 mg tablet Take 0.5-1 tablets by mouth once daily as needed. for swelling in feet DULoxetine (CYMBALTA) 30 mg capsule Take 1 capsule by mouth every evening. DULoxetine (CYMBALTA) 60 mg capsule Take 1 capsule by mouth every morning. SUMAtriptan (IMITREX) 100 mg tablet Take 1 tablet by mouth as needed for migraine headache (see administration instructions). May repeat dose after 2 hours if needed. Maximum daily dose is 200 mg per day.TAKE 1 TABLET BY MOUTH AT ONSET OF HEADACHE MAY REPEAT IN 2 HOURS IF HEADACHE PERSISTS MAXIMUM DAILY DOSE OF 2 TABLETS ( 200 MILLIGRAMS ) EVERY 24 HOURS tiZANidine (ZANAFLEX) 2 mg tablet Take 1 tablet by mouth once daily as needed. As directed topiramate (TOPAMAX) 50 mg tablet Take 1 tablet by mouth every morning AND 2 tablets daily at bedtime. fluticasone (FLONASE) 50 mcg/actuation nasal spray Use 2 Sprays in each nostril once daily. Rinse mouth after use. gabapentin (NEURONTIN) 300 mg capsule Take 1 capsule by mouth every morning AND 2 capsules daily at bedtime AND 1 capsule every afternoon. Do all this for 180 days. As directed. celecoxib (CELEBREX) 200 mg capsule Take 1 capsule by mouth two times a day. for hip and arthritic pain. Take with food SPIRIVA RESPIMAT 2.5 mcg/actuation inhaler meclizine (ANTIVERT) 25 mg tab 4 TIMES DAILY NEEDED as needed for Dizziness OXYGEN, HOME THERAPY, 3 L/min by Nasal Cannula route as directed. At night ARIPiprazole (ABILIFY) 15 mg tablet Take 1 tablet by mouth once daily. Dr. Rodriguez Nebulizer Accessories kit Provide nebulizer kit. albuterol (PROVENTIL) 2.5 mg /3 mL (0.083 %) nebulizer solution Use 3 mL via nebulizer four times daily as needed for Wheezing/Shortness of Breath. Inhale by nebulizer over 5-15 minutes hydrOXYzine pamoate (VISTARIL) 25 mg capsule Take 2 capsules by mouth four times daily as needed. Dr. Rodriguez FAMILY HISTORY Problem Relation Age of Onset Arthritis Mother COPD Mother Hypertension Father Cancer Maternal Grandfather Lung Cancer Other Lung. Several maternal family members. Anesthesia Problems No Family History Social History Tobacco Use Smoking status: Former Current packs/day: 0.00 Average packs/day: 1 pack/day for 48.8 years (48.8 ttl pk-yrs) Types: Cigarettes Start date: 11/02/1973 Quit date: 08/13/2022 Years since quittin.6 Smokeless tobacco: Never Tobacco comments: Started smoking at age 14, 1ppd. Both parents smokers. Vaping Use Vaping status: Never Used Substance Use Topics Alcohol use: Not Currently Comment: August 27, 2009 quit Drug use: No Comment: past history of cocaine and marijuana- quit 2008 Review of Systems Constitutional: Negative for chills, fatigue and fever. HENT: Positive for rhinorrhea and sore throat. Negative for ear discharge, ear pain, sinus pressure and sinus pain. Eyes: Negative for discharge and redness. Respiratory: Positive for cough. Negative for shortness of breath and wheezing. Cardiovascular: Negative for chest pain. Gastrointestinal: Positive for diarrhea. Negative for nausea and vomiting. Skin: Negative for rash. Objective BP 129/85 Pulse 105 Temp 36.5 ?C (97.7 ?F) Resp 18 Wt 105.2 kg (231 lb 14.8 oz) LMP 03/09/2013 SpO2 96% BMI 42.08 kg/m? Physical Exam Constitutional: General: She is not in acute distress. Appearance: Normal appearance. She is not toxic-appearing or diaphoretic. HENT: Head: Normocephalic and atraumatic. Cardiovascular: Rate and Rhythm: Normal rate and regular rhythm. Heart sounds: Normal heart sounds. Pulmonary: Effort: Pulmonary effort is normal. No accessory muscle usage or respiratory distress. Breath sounds: Examination of the left-lower field reveals rhonchi. Rhonchi present. No decreased breath sounds, wheezing or rales. Abdominal: General: Bowel sounds are normal. Palpations: Abdomen is soft. Tenderness: There is no abdominal tenderness. There is no right CVA tenderness or left CVA tenderness. Skin: General: Skin is warm and dry. Neurological: Mental Status: She is alert and oriented to person, place, and time. {ASSESSMENT/PLAN: 1. Viral syndrome - ICD9: 079.99, ICD10: B34.9 (primary diagnosis) - Discussed viral etiology and rationale for treatment. - Symptomatic treatment with prn analgesia - Supportive care with fluids and rest - Follow up in 3-5 days if symptoms persist or sooner if worsening of symptoms If positive for covid is candidate for paxlovid, will need to hold flomax if still taking. - COVID AND INFLUENZA A/B AND RSV PCR, ROUTINE 2. Rhonchi - ICD9: 786.7, ICD10: R09.89 Xray negative - XR CHEST 2V FRONTAL/LAT 3. History of asthma - ICD9: V12.69, ICD10: Z87.09 Order steroid -If you experience chest pain/shortness of breath go to ER Kori Hunt APRN.[facility]AV[facility] REGISTERED NURSE ICU History and Record Review External record(s) reviewed: prior outpatient record. Disposition The patient was discharged. Procedures CNOV Observed: 03/30/2025 11:15 AM Status: COMPLETED Source: [facility] Office Visit (WSTR) YENNY MARSHALL ([id number]) 1960 F Date Time Provider Department 03/30/25 11:15 AM [facility] During your visit today, we recorded the following information about you: Temperature Pulse Respiration Blood pressure 97.7 degrees 105/minute 18/minute 129/85 Weight 105.2 kg Kori Hunt APRN.CNP 03/30/2025 1:12 PM Signed [facility] Subjective HPI HPI Yenny Marshall is a 64 year old female who presents today for CC of cough, st, h/a, diarrhea. This started this AM. Has tried nothing for relief. Symptoms are worsened by nothing. Risk factors hx of asthma. .Patient presents with: Cough: ST, NIELSEN x last night, diarrhea x this AM PAST MEDICAL HISTORY Diagnosis Date Arrhythmia Asthma ([facility]) Blood dyscrasia Cervical disc displacement 04/17/2011 Chronic obstructive pulmonary disease (COPD) ([facility]) Class 2 obesity due to excess calories without serious comorbidity with body mass index (BMI) of 37.0 to 37.9 in adult 05/11/2018 Degenerative disk disease bulging disks Depression Foot fracture, right 2002 Fell off ladder and fractured right foot H/O ETOH abuse In remission/recovery over 10 years (as of 11/2019) Lactose intolerance Lumbar radiculopathy 04/17/2011 Migraine 04/02/2012 Mitral valve prolapse KALPESH (obstructive sleep apnea) 12/15/2012 KALPESH (obstructive sleep apnea) 12/15/2012 SLEEP ARCHITECTURE: PSG 10/05/2012 The study started at 22:34:01 and ended at 06:39:39. Total sleep time was 405 minutes resulting in a sleep efficiency of 92.2% (TRT = 439 m). There were 14 awakenings with a total time awake after sleep onset of 11.0 minutes. The sleep latency was 23.0 minutes and the REM latency was 308 minutes. Snoring Substance abuse (HCC) In remission >10 years (as of 11/2019) PAST SURGICAL HISTORY Procedure Laterality Date COLONOSCOPY FLX DX W/COLLJ SPEC WHEN PFRMD 11/25/2017 Colonoscopy EXTENSIVE FOOT SURGERY 2002,2004 right foot due to fall from ladder KNEE LEFT OP SURGERY 2004 Growth on left tibia removed, non cancerous LAPAROSCOPY SURG CHOLECYSTECTOMY 09/06/2018 Cholecystectomy, lap NOSE 02/12, basal cell removal PAST SURGICAL HISTORY OF 12/1982 tubal ligation PAST SURGICAL HISTORY OF 04/03/2013 DANN, BSO, cyctoscopy 04/2013 PAST SURGICAL HISTORY OF 2013 reconstruction of urethra PAST SURGICAL HISTORY OF lumbar injections- Dr Kimball TOOTH EXTRACTION TOTAL KNEE REPLACEMENT Right 11/27/2023 Robotic assisted Right total knee replacement ALLERGIES Dilaudid [Hydromorphone], Latex, Penicillin G, and Penicillins MEDICATIONS predniSONE (DELTASONE) 10 mg tablet Take 2 tabs po BID for 2 days then 1 tab po BID for 2 days then 1/2 tab po BID for 2 days then 1/2 tab daily for 2 days then stop (Patient not taking: Reported on 03/30/2025) albuterol HFA (PROAIR HFA) 90 mcg/actuation inhaler Inhale 2 Puffs as instructed every 4 hours as needed. tamsulosin (FLOMAX) 0.4 mg Take 1 capsule by mouth once daily. furosemide (LASIX) 20 mg tablet Take 0.5-1 tablets by mouth once daily as needed. for swelling in feet DULoxetine (CYMBALTA) 30 mg capsule Take 1 capsule by mouth every evening. DULoxetine (CYMBALTA) 60 mg capsule Take 1 capsule by mouth every morning. SUMAtriptan (IMITREX) 100 mg tablet Take 1 tablet by mouth as needed for migraine headache (see administration instructions). May repeat dose after 2 hours if needed. Maximum daily dose is 200 mg per day.TAKE 1 TABLET BY MOUTH AT ONSET OF HEADACHE MAY REPEAT IN 2 HOURS IF HEADACHE PERSISTS MAXIMUM DAILY DOSE OF 2 TABLETS ( 200 MILLIGRAMS ) EVERY 24 HOURS tiZANidine (ZANAFLEX) 2 mg tablet Take 1 tablet by mouth once daily as needed. As directed topiramate (TOPAMAX) 50 mg tablet Take 1 tablet by mouth every morning AND 2 tablets daily at bedtime. fluticasone (FLONASE) 50 mcg/actuation nasal spray Use 2 Sprays in each nostril once daily. Rinse mouth after use. gabapentin (NEURONTIN) 300 mg capsule Take 1 capsule by mouth every morning AND 2 capsules daily at bedtime AND 1 capsule every afternoon. Do all this for 180 days. As directed. celecoxib (CELEBREX) 200 mg capsule Take 1 capsule by mouth two times a day. for hip and arthritic pain. Take with food SPIRIVA RESPIMAT 2.5 mcg/actuation inhaler meclizine (ANTIVERT) 25 mg tab 4 TIMES DAILY NEEDED as needed for Dizziness OXYGEN, HOME THERAPY, 3 L/min by Nasal Cannula route as directed. At night ARIPiprazole (ABILIFY) 15 mg tablet Take 1 tablet by mouth once daily. Dr. Rodriguez Nebulizer Accessories kit Provide nebulizer kit. albuterol (PROVENTIL) 2.5 mg /3 mL (0.083 %) nebulizer solution Use 3 mL via nebulizer four times daily as needed for Wheezing/Shortness of Breath. Inhale by nebulizer over 5-15 minutes hydrOXYzine pamoate (VISTARIL) 25 mg capsule Take 2 capsules by mouth four times daily as needed. Dr. Rodriguez FAMILY HISTORY Problem Relation Age of Onset Arthritis Mother COPD Mother Hypertension Father Cancer Maternal Grandfather Lung Cancer Other Lung. Several maternal family members. Anesthesia Problems No Family History Social History Tobacco Use Smoking status: Former Current packs/day: 0.00 Average packs/day: 1 pack/day for 48.8 years (48.8 ttl pk-yrs) Types: Cigarettes Start date: 11/02/1973 Quit date: 08/13/2022 Years since quittin.6 Smokeless tobacco: Never Tobacco comments: Started smoking at age 14, 1ppd. Both parents smokers. Vaping Use Vaping status: Never Used Substance Use Topics Alcohol use: Not Currently Comment: August 27, 2009 quit Drug use: No Comment: past history of cocaine and marijuana- quit 2008 Review of Systems Constitutional: Negative for chills, fatigue and fever. HENT: Positive for rhinorrhea and sore throat. Negative for ear discharge, ear pain, sinus pressure and sinus pain. Eyes: Negative for discharge and redness. Respiratory: Positive for cough. Negative for shortness of breath and wheezing. Cardiovascular: Negative for chest pain. Gastrointestinal: Positive for diarrhea. Negative for nausea and vomiting. Skin: Negative for rash. Objective BP 129/85 Pulse 105 Temp 36.5 ?C (97.7 ?F) Resp 18 Wt 105.2 kg (231 lb 14.8 oz) LMP 03/09/2013 SpO2 96% BMI 42.08 kg/m? Physical Exam Constitutional: General: She is not in acute distress. Appearance: Normal appearance. She is not toxic-appearing or diaphoretic. HENT: Head: Normocephalic and atraumatic. Cardiovascular: Rate and Rhythm: Normal rate and regular rhythm. Heart sounds: Normal heart sounds. Pulmonary: Effort: Pulmonary effort is normal. No accessory muscle usage or respiratory distress. Breath sounds: Examination of the left-lower field reveals rhonchi. Rhonchi present. No decreased breath sounds, wheezing or rales. Abdominal: General: Bowel sounds are normal. Palpations: Abdomen is soft. Tenderness: There is no abdominal tenderness. There is no right CVA tenderness or left CVA tenderness. Skin: General: Skin is warm and dry. Neurological: Mental Status: She is alert and oriented to person, place, and time. {ASSESSMENT/PLAN: 1. Viral syndrome - ICD9: 079.99, ICD10: B34.9 (primary diagnosis) - Discussed viral etiology and rationale for treatment. - Symptomatic treatment with prn analgesia - Supportive care with fluids and rest - Follow up in 3-5 days if symptoms persist or sooner if worsening of symptoms If positive for covid is candidate for paxlovid, will need to hold flomax if still taking. - COVID AND INFLUENZA A/B AND RSV PCR, ROUTINE 2. Rhonchi - ICD9: 786.7, ICD10: R09.89 Xray negative - XR CHEST 2V FRONTAL/LAT 3. History of asthma - ICD9: V12.69, ICD10: Z87.09 Order steroid -If you experience chest pain/shortness of breath go to ER Kori Hunt APRN.TRAVEL REGISTERED NURSE ICU History and Record Review External record(s) reviewed: prior outpatient record. Disposition The patient was discharged. Procedures Allergies As of Date: 03/30/2025 Noted Allergy Reaction DILAUDID (HYDROMORPHONE) 10/22/2023 16 - Unknown Comments: Had dilaudid during surgery once and it led to respiratory depression and very slow breathing - she had slow/difficult emergence from anesthesia d/t this LATEX 04/17/2014 4 - Hives 7 - Swelling 9 - Itching Comments: Localized PENICILLIN G 04/22/2011 16 - Unknown PENICILLINS 04/17/2011 2 - Rash 9 - Itching 12 - Shortness of Breath 4 - Hives Date Reviewed: 03/30/2025 Reviewed by: Symone Prabhakar MA - Fully Assessed Reason for Visit: Cough [28] Cmt: ST, NIELSEN x last night, diarrhea x this AM Primary Visit Diagnosis:Viral syndrome [B34.9] Other Visit Diagnoses:Rhonchi [R09.89] History of asthma [Z87.09] Order(s):XR CHEST 2V FRONTAL/LAT [[id number]] Order #: [id number]. #:[id number] COVID AND INFLUENZA A/B AND RSV PCR, ROUTINE [[id number]] Order #: [id number]. #:[id number] predniSONE (DELTASONE) 20 mg tabletTake 2 tablets by mouth once daily for 5 days. Take daily with food.Disp: 10 tabletRfl: 0 Prescriptions as of 03/30/2025 - predniSONE (DELTASONE) 20 mg tablet Take 2 tablets by mouth once daily for 5 days. Take daily with food. - predniSONE (DELTASONE) 10 mg tablet Take 2 tabs po BID for 2 days then 1 tab po BID for 2 days then 1/2 tab po BID for 2 days then 1/2 tab daily for 2 days then stop - albuterol HFA (PROAIR HFA) 90 mcg/actuation inhaler Inhale 2 Puffs as instructed every 4 hours as needed. - tamsulosin (FLOMAX) 0.4 mg Take 1 capsule by mouth once daily. - furosemide (LASIX) 20 mg tablet Take 0.5-1 tablets by mouth once daily as needed. for swelling in feet - DULoxetine (CYMBALTA) 30 mg capsule Take 1 capsule by mouth every evening. - DULoxetine (CYMBALTA) 60 mg capsule Take 1 capsule by mouth every morning. - SUMAtriptan (IMITREX) 100 mg tablet Take 1 tablet by mouth as needed for migraine headache (see administration instructions). May repeat dose after 2 hours if needed. Maximum daily dose is 200 mg per day.TAKE 1 TABLET BY MOUTH AT ONSET OF HEADACHE MAY REPEAT IN 2 HOURS IF HEADACHE PERSISTS MAXIMUM DAILY DOSE OF 2 TABLETS ( 200 MILLIGRAMS ) EVERY 24 HOURS - tiZANidine (ZANAFLEX) 2 mg tablet Take 1 tablet by mouth once daily as needed. As directed - topiramate (TOPAMAX) 50 mg tablet Take 1 tablet by mouth every morning AND 2 tablets daily at bedtime. - fluticasone (FLONASE) 50 mcg/actuation nasal spray Use 2 Sprays in each nostril once daily. Rinse mouth after use. - gabapentin (NEURONTIN) 300 mg capsule Take 1 capsule by mouth every morning AND 2 capsules daily at bedtime AND 1 capsule every afternoon. Do all this for 180 days. As directed. - celecoxib (CELEBREX) 200 mg capsule Take 1 capsule by mouth two times a day. for hip and arthritic pain. Take with food - SPIRIVA RESPIMAT 2.5 mcg/actuation inhaler - meclizine (ANTIVERT) 25 mg tab 4 TIMES DAILY NEEDED as needed for Dizziness - OXYGEN, HOME THERAPY, 3 L/min by Nasal Cannula route as directed. At night - ARIPiprazole (ABILIFY) 15 mg tablet Take 1 tablet by mouth once daily. Dr. Rodriguez - Nebulizer Accessories kit Provide nebulizer kit. - albuterol (PROVENTIL) 2.5 mg /3 mL (0.083 %) nebulizer solution Use 3 mL via nebulizer four times daily as needed for Wheezing/Shortness of Breath. Inhale by nebulizer over 5-15 minutes - hydrOXYzine pamoate (VISTARIL) 25 mg capsule Take 2 capsules by mouth four times daily as needed. Dr. Rodriguez Problem List As Of Date 03/30/2025 Noted Resolved Lumbar radiculopathy [M54.16] 04/17/2011 DDD (degenerative disc disease), cervical [M50.*04/17/2011 DDD (degenerative disc disease), lumbar [M51.36*04/17/2011 Disc displacement, lumbar [M51.26] 04/17/2011 Cervical disc displacement [M50.20] 04/17/2011 Hematuria [R31.9] 11/25/2011 Chronic pelvic pain in female [R10.2, G89.29] 11/25/2011 Urgency of urination [R39.15] 11/25/2011 Frequency of urination [R35.0] 11/25/2011 OAB (overactive bladder) [N32.81] 11/25/2011 Smoking history [Z87.891] 11/25/2011 Asthma [J45.909] Migraine [G43.909] 04/02/2012 MDD (major depressive disorder), recurrent epis*08/05/2012 Alcohol dependence in remission (HCC) [F10.21] 08/05/2012 History of substance abuse (HCC) [F19.11] 08/05/2012 Snoring disorder [R06.83] 12/15/2012 Depression [F32.A] 06/11/2022 Right hip pain [M25.551] 08/04/2014 Thoracic myofascial strain [S29.019A] 01/10/2015 Edema of both legs [R60.0] 05/29/2015 Bilateral foot pain [M79.671, M79.672] 07/13/2015 Osteoarthritis of lumbar spine [M47.816] 08/22/2015 Altered bowel habits [R19.4] 10/28/2017 Class 2 obesity due to excess calories with bod*05/11/2018 Biliary dyskinesia [K82.8] 08/24/2018 Obesity, Class I, BMI 30-34.9 [E66.811] 05/23/2019 06/11/2022 Chronic bilateral low back pain with bilateral *09/01/2019 Class 2 obesity due to excess calories without *05/11/2018 11/30/2019 Pulmonary embolism (HCC) [I26.99] 05/29/2023 Mitral valve prolapse [I34.1] 10/22/2023 Class 3 severe obesity due to excess calories w*11/27/2023 Vitamin D deficiency [E55.9] 12/30/2023 Prescriptions ordered this encounter Disp Refills Start End PREDNISONE 20 MG TABLET 10 t* 0 03/30/2025 04/04/2025 Route: PO Sig: Take 2 tablets by mouth once daily for 5 days. Take daily with food. Letter Text Encounter Status:Closed by KORI HUNT on 03/30/25 ASHLEIGHOV Observed: 03/14/2025 2:20 PM Status: COMPLETED Source: [facility] Office Visit (INTMWS) YENNY MARSHALL ([id number]) 1960 F Date Time Provider Department 03/14/25 2:20 PM NEHA SHEPPARD INTMWS During your visit today, we recorded the following information about you: Pulse Blood pressure Weight 101/minute 106/70 102.7 kg Neha Sheppard APRN.CNP 03/14/2025 3:33 PM Signed SUBJECTIVE Yenny Marshall is a 64 year old female here today for acute concern. Chief Complaint Patient presents with: Pain: in bilateral lower leg and feet. Left foot seems to be worse in arch and heel. Gabapentin doesn't seem to help the discomfort. Also takes Tylenol Extra Strength twice a day HPI Yenny is a 64-year-old female presenting with bilateral foot pain, more pronounced on the left side. Yenny reports a several-month history of bilateral foot pain, with the left foot being more severely affected. The pain is described as a sharp, dagger-like sensation primarily located in the heel and arch, radiating up to the knee. She also experiences burning and stinging sensations. The pain is intermittent, often occurring suddenly while sitting, and is exacerbated by touch. She has attempted various conservative treatments, including icing, using new arch supports, rolling her foot on a frozen water bottle, stretching, and applying an ulub-wzi-dvrjdsf salve containing frankincense oil, all of which have provided only temporary relief. She is currently taking Celebrex, gabapentin, Cymbalta, and Tylenol BID for pain management. She also uses a muscle relaxant at half the prescribed dose at night for back spasms. Despite these measures, she continues to experience significant pain, which disrupts her sleep and daily activities. Yenny notes an increase in her physical activity due to her 's recent hospitalization and rehabilitation following a near-myocardial infarction and the placement of three stents. 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 She denies symptoms suggestive of neuropathy and has no history of diabetes, as confirmed by previous blood glucose tests. She also had foot X-rays in September, which showed no fractures. Her medications were reviewed today and her list is now up to date. Medications Current Outpatient Medications Medication Sig albuterol HFA (PROAIR HFA) 90 mcg/actuation inhaler Inhale 2 Puffs as instructed every 4 hours as needed. furosemide (LASIX) 20 mg tablet Take 0.5-1 tablets by mouth once daily as needed. for swelling in feet DULoxetine (CYMBALTA) 30 mg capsule Take 1 capsule by mouth every evening. DULoxetine (CYMBALTA) 60 mg capsule Take 1 capsule by mouth every morning. SUMAtriptan (IMITREX) 100 mg tablet Take 1 tablet by mouth as needed for migraine headache (see administration instructions). May repeat dose after 2 hours if needed. Maximum daily dose is 200 mg per day.TAKE 1 TABLET BY MOUTH AT ONSET OF HEADACHE MAY REPEAT IN 2 HOURS IF HEADACHE PERSISTS MAXIMUM DAILY DOSE OF 2 TABLETS ( 200 MILLIGRAMS ) EVERY 24 HOURS tiZANidine (ZANAFLEX) 2 mg tablet Take 1 tablet by mouth once daily as needed. As directed topiramate (TOPAMAX) 50 mg tablet Take 1 tablet by mouth every morning AND 2 tablets daily at bedtime. fluticasone (FLONASE) 50 mcg/actuation nasal spray Use 2 Sprays in each nostril once daily. Rinse mouth after use. gabapentin (NEURONTIN) 300 mg capsule Take 1 capsule by mouth every morning AND 2 capsules daily at bedtime AND 1 capsule every afternoon. Do all this for 180 days. As directed. celecoxib (CELEBREX) 200 mg capsule Take 1 capsule by mouth two times a day. for hip and arthritic pain. Take with food SPIRIVA RESPIMAT 2.5 mcg/actuation inhaler meclizine (ANTIVERT) 25 mg tab 4 TIMES DAILY NEEDED as needed for Dizziness ARIPiprazole (ABILIFY) 15 mg tablet Take 1 tablet by mouth once daily. Dr. Rodriguez albuterol (PROVENTIL) 2.5 mg /3 mL (0.083 %) nebulizer solution Use 3 mL via nebulizer four times daily as needed for Wheezing/Shortness of Breath. Inhale by nebulizer over 5-15 minutes hydrOXYzine pamoate (VISTARIL) 25 mg capsule Take 2 capsules by mouth four times daily as needed. Dr. Rodriguez predniSONE (DELTASONE) 10 mg tablet Take 2 tabs po BID for 2 days then 1 tab po BID for 2 days then 1/2 tab po BID for 2 days then 1/2 tab daily for 2 days then stop tamsulosin (FLOMAX) 0.4 mg Take 1 capsule by mouth once daily. OXYGEN, HOME THERAPY, 3 L/min by Nasal Cannula route as directed. At night Nebulizer Accessories kit Provide nebulizer kit. Current Facility-Administered Medications Medication Dose Route Frequency keTORolac 60 mg injection (Toradol) 60 mg INTRAMUSCULAR ONCE ALLERGIES Allergen Reactions Dilaudid [Hydromorp* Unknown Had dilaudid during surgery once and it led to respiratory depression and very slow breathing - she had slow/difficult emergence from anesthesia d/t this Latex Hives, Swelling, Itching Localized Penicillin G Unknown Penicillins Rash, Itching, Shortness of Breath, Hives ACTIVE PROBLEM LIST Vitamin D Deficiency - 12/30/2023 Class 3 Severe Obesity Due to Excess Calories With Body Mass Index (Bmi) of 40.0 to 44.9 in Adult - 11/27/2023 Mitral Valve Prolapse - 10/22/2023 Pulmonary Embolism (Hcc) - 05/29/2023 Chronic Bilateral Low Back Pain With Bilateral Sciatica - 09/01/2019 Biliary Dyskinesia - 08/24/2018 Comment: Added automatically from request for surgery [id number] Class 2 Obesity Due to Excess Calories With Body Mass Index (Bmi) of 38.0 to 38.9 in Adult - 05/11/2018 Altered Bowel Habits - 10/28/2017 Comment: Added automatically from request for surgery [id number] Osteoarthritis of Lumbar Spine - 08/22/2015 Bilateral Foot Pain - 07/13/2015 Edema of Both Legs - 05/29/2015 Thoracic Myofascial Strain - 01/10/2015 Right Hip Pain - 08/04/2014 Snoring Disorder - 12/15/2012 Mdd (Major Depressive Disorder), Recurrent Episode - 08/05/2012 Comment: Dx made by Dr Rodriguez 06/2012, r/o Bipolar Disorder Alcohol Dependence in Remission ([facility]) - 08/05/2012 Comment: Dx per Dr Rodriguez 06/2012 History of substance abuse ([facility]) - 08/05/2012 Comment: In remission, Dx per Dr Rodriguez 06/2012 Migraine - 04/02/2012 Asthma ([facility]) Hematuria - 11/25/2011 Chronic Pelvic Pain in Female - 11/25/2011 Urgency of Urination - 11/25/2011 Frequency of Urination - 11/25/2011 Oab (Overactive Bladder) - 11/25/2011 Smoking History - 11/25/2011 Lumbar Radiculopathy - 04/17/2011 Ddd (Degenerative Disc Disease), Cervical - 04/17/2011 Ddd (Degenerative Disc Disease), Lumbar - 04/17/2011 Disc Displacement, Lumbar - 04/17/2011 Cervical Disc Displacement - 04/17/2011 Social History Tobacco Use Smoking status: Former Current packs/day: 0.00 Average packs/day: 1 pack/day for 48.8 years (48.8 ttl pk-yrs) Types: Cigarettes Start date: 11/02/1973 Quit date: 08/13/2022 Years since quittin.5 Smokeless tobacco: Never Tobacco comments: Started smoking at age 14, 1ppd. Both parents smokers. Vaping Use Vaping status: Never Used Substance Use Topics Alcohol use: Not Currently Comment: August 27, 2009 quit Drug use: No Comment: past history of cocaine and marijuana- quit 2008 Review of Systems Respiratory: Negative. Cardiovascular: Negative. OBJECTIVE BP 106/70 Pulse 101 Wt 226 lb 6.6 oz (102.7kg) SpO2 95% LMP 03/09/2013 Physical Exam Vitals and nursing note reviewed. Constitutional: General: She is awake. She is not in acute distress. Appearance: Normal appearance. She is well-developed and well-groomed. She is not ill-appearing, toxic-appearing or diaphoretic. HENT: Head: Normocephalic. Right Ear: External ear normal. Left Ear: External ear normal. Nose: Nose normal. Eyes: General: Vision grossly intact. Conjunctiva/sclera: Conjunctivae normal. Pupils: Pupils are equal, round, and reactive to light. Neck: Vascular: No JVD. Trachea: Trachea normal. Cardiovascular: Pulses: Normal pulses. Pulmonary: Effort: Pulmonary effort is normal. No accessory muscle usage, prolonged expiration or respiratory distress. Musculoskeletal: Right lower leg: No edema. Left lower leg: No edema. Feet: Feet: Comments: Pain in the center of the arch that extends to the heel Skin: General: Skin is warm and dry. Capillary Refill: Capillary refill takes less than 2 seconds. Neurological: General: No focal deficit present. Mental Status: She is alert and oriented to person, place, and time. Mental status is at baseline. Psychiatric: Attention and Perception: Attention and perception normal. Mood and Affect: Mood and affect normal. Speech: Speech normal. Behavior: Behavior normal. Behavior is cooperative. Thought Content: Thought content normal. Cognition and Memory: Cognition and memory normal. Judgment: Judgment normal. ASSESSMENT/PLAN: 1. Left foot pain (M79.672) Right foot pain (M79.671) Plantar fasciitis of left foot (M72.2) Chronic bilateral foot pain, predominantly in the left foot, with a duration of several months. Pain is described as sharp, burning, and stinging, localized primarily to the heel and arch, with radiation up to the knee. Previous interventions including ice, arch supports, stretching, and topical salves have provided minimal relief. Current medications include Celebrex, gabapentin, Cymbalta, and occasional muscle relaxants and Tylenol. Recent x-rays in September showed no fractures. Differential diagnosis includes plantar fasciitis, given the location and nature of the pain. - Administered Toradol 60 mg IM injection today. - Initiated prednisone therapy; instructed patient to discontinue Celebrex during the course of prednisone. - Advised continuation of home remedies such as rolling the foot on a frozen water bottle and using a tennis ball for massage. - If pain persists, recommended follow-up with Dr. Charles for potential corticosteroid injections into the plantar fascia. - Provided work note for today; patient plans to return to work tomorrow. 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 Patient/authorized customer service representative teacher agreed to proceed Portions of this note have been entered by ancillary staff. I have reviewed and when necessary edited, so that they are an adequate record of my encounter with this patient Please note that parts of this document were created using voice recognition software and therefore may contain grammatical errors. Patient verbalizes understanding of instructions from today's visit and in agreement with treatment plan. Questions answered. Agrees to call the office if questions, concerns of issues with acute symptoms not improving or if they worsen. See diagnoses and orders for additional plan(s). Allergies and medications were reviewed, list was updated, and refills given if needed. Past medical, surgical, social, and family history reviewed and updated as appropriate. Encouraged proper diet AND exercise as well as compliance with taking medications. Age-appropriate health preventative measures were discussed. Return if symptoms worsen or fail to improve, for Keep next scheduled appointment.. Neha Sheppard APRN-[facility]UR[facility] ICU Allergies As of Date: 03/14/2025 Noted Allergy Reaction DILAUDID (HYDROMORPHONE) 10/22/2023 16 - Unknown Comments: Had dilaudid during surgery once and it led to respiratory depression and very slow breathing - she had slow/difficult emergence from anesthesia d/t this LATEX 04/17/2014 4 - Hives 7 - Swelling 9 - Itching Comments: Localized PENICILLIN G 04/22/2011 16 - Unknown PENICILLINS 04/17/2011 2 - Rash 9 - Itching 12 - Shortness of Breath 4 - Hives Date Reviewed: 03/14/2025 Reviewed by: Neha Sheppard APRN.[facility]URSE ICU - Fully Assessed Reason for Visit: Pain [78] Cmt: in bilateral lower leg and feet. Left foot seems to be worse in arch and heel. Gabapentin doesn't seem to help the discomfort. Also takes Tylenol Extra Strength twice a day Primary Visit Diagnosis:Left foot pain [M79.672] Other Visit Diagnoses:Right foot pain [M79.671] Plantar fasciitis of left foot [M72.2] Order(s):predniSONE (DELTASONE) 10 mg tabletTake 2 tabs po BID for 2 days then 1 tab po BID for 2 days then 1/2 tab po BID for 2 days then 1/2 tab daily for 2 days then stopDisp: 15 tabletRfl: 0 [] keTORolac 60 mg injection (Toradol)Disp: Rfl: Prescriptions as of 03/14/2025 - predniSONE (DELTASONE) 10 mg tablet Take 2 tabs po BID for 2 days then 1 tab po BID for 2 days then 1/2 tab po BID for 2 days then 1/2 tab daily for 2 days then stop - albuterol HFA (PROAIR HFA) 90 mcg/actuation inhaler Inhale 2 Puffs as instructed every 4 hours as needed. - tamsulosin (FLOMAX) 0.4 mg Take 1 capsule by mouth once daily. - furosemide (LASIX) 20 mg tablet Take 0.5-1 tablets by mouth once daily as needed. for swelling in feet - DULoxetine (CYMBALTA) 30 mg capsule Take 1 capsule by mouth every evening. - DULoxetine (CYMBALTA) 60 mg capsule Take 1 capsule by mouth every morning. - SUMAtriptan (IMITREX) 100 mg tablet Take 1 tablet by mouth as needed for migraine headache (see administration instructions). May repeat dose after 2 hours if needed. Maximum daily dose is 200 mg per day.TAKE 1 TABLET BY MOUTH AT ONSET OF HEADACHE MAY REPEAT IN 2 HOURS IF HEADACHE PERSISTS MAXIMUM DAILY DOSE OF 2 TABLETS ( 200 MILLIGRAMS ) EVERY 24 HOURS - tiZANidine (ZANAFLEX) 2 mg tablet Take 1 tablet by mouth once daily as needed. As directed - topiramate (TOPAMAX) 50 mg tablet Take 1 tablet by mouth every morning AND 2 tablets daily at bedtime. - fluticasone (FLONASE) 50 mcg/actuation nasal spray Use 2 Sprays in each nostril once daily. Rinse mouth after use. - gabapentin (NEURONTIN) 300 mg capsule Take 1 capsule by mouth every morning AND 2 capsules daily at bedtime AND 1 capsule every afternoon. Do all this for 180 days. As directed. - celecoxib (CELEBREX) 200 mg capsule Take 1 capsule by mouth two times a day. for hip and arthritic pain. Take with food - SPIRIVA RESPIMAT 2.5 mcg/actuation inhaler - meclizine (ANTIVERT) 25 mg tab 4 TIMES DAILY NEEDED as needed for Dizziness - OXYGEN, HOME THERAPY, 3 L/min by Nasal Cannula route as directed. At night - ARIPiprazole (ABILIFY) 15 mg tablet Take 1 tablet by mouth once daily. Dr. Rodriguez - Nebulizer Accessories kit Provide nebulizer kit. - albuterol (PROVENTIL) 2.5 mg /3 mL (0.083 %) nebulizer solution Use 3 mL via nebulizer four times daily as needed for Wheezing/Shortness of Breath. Inhale by nebulizer over 5-15 minutes - hydrOXYzine pamoate (VISTARIL) 25 mg capsule Take 2 capsules by mouth four times daily as needed. Dr. Rodriguez [facility] Comments as of 04/29/2023: April 29, 2023. Patient started new Levaquin Rx today. Disha Tim RN Problem List As Of Date 03/14/2025 Noted Resolved Lumbar radiculopathy [M54.16] 04/17/2011 DDD (degenerative disc disease), cervical [M50.*04/17/2011 DDD (degenerative disc disease), lumbar [M51.36*04/17/2011 Disc displacement, lumbar [M51.26] 04/17/2011 Cervical disc displacement [M50.20] 04/17/2011 Hematuria [R31.9] 11/25/2011 Chronic pelvic pain in female [R10.2, G89.29] 11/25/2011 Urgency of urination [R39.15] 11/25/2011 Frequency of urination [R35.0] 11/25/2011 OAB (overactive bladder) [N32.81] 11/25/2011 Smoking history [Z87.891] 11/25/2011 Asthma [J45.909] Migraine [G43.909] 04/02/2012 MDD (major depressive disorder), recurrent epis*08/05/2012 Alcohol dependence in remission (HCC) [F10.21] 08/05/2012 History of substance abuse (HCC) [F19.11] 08/05/2012 Snoring disorder [R06.83] 12/15/2012 Depression [F32.A] 06/11/2022 Right hip pain [M25.551] 08/04/2014 Thoracic myofascial strain [S29.019A] 01/10/2015 Edema of both legs [R60.0] 05/29/2015 Bilateral foot pain [M79.671, M79.672] 07/13/2015 Osteoarthritis of lumbar spine [M47.816] 08/22/2015 Altered bowel habits [R19.4] 10/28/2017 Class 2 obesity due to excess calories with bod*05/11/2018 Biliary dyskinesia [K82.8] 08/24/2018 Obesity, Class I, BMI 30-34.9 [E66.811] 05/23/2019 06/11/2022 Chronic bilateral low back pain with bilateral *09/01/2019 Class 2 obesity due to excess calories without *05/11/2018 11/30/2019 Pulmonary embolism (HCC) [I26.99] 05/29/2023 Mitral valve prolapse [I34.1] 10/22/2023 Class 3 severe obesity due to excess calories w*11/27/2023 Vitamin D deficiency [E55.9] 12/30/2023 Prescriptions ordered this encounter Disp Refills Start End PREDNISONE 10 MG TABLET 15 t* 0 03/14/2025 Sig: Take 2 tabs po BID for 2 days then 1 tab po BID for 2 days then 1/2 tab po BID for 2 days then 1/2 tab daily for 2 days then stop KETOROLAC 60 MG/2 ML INTRAMUSCULAR S* 03/14/2025 03/14/2025 Route: INTRAMUSCULA Medications Discontinued During This Encounter Prescriptions - dicyclomine (BENTYL) 10 mg capsule (Discontinued) Reported on 03/14/2025 Disposition: Return if symptoms worsen or fail to improve, for Keep next scheduled appointment.. Follow-up and Disposition History for Encounter Date Provider Department Center 03/14/2025 [id number], ROSA INTMWS [facility] Letter Text Encounter Status:Closed by CHAY MOSQUEDA on 03/14/25 PROGRESS Observed: 03/14/2025 2:17 PM Status: COMPLETED Source: [facility] ID: [id number] Author: NEHA SHEPPARD APRN.[facility]URSE ICU Service: ? Author Type: Nurse Practitioner Type: Progress Notes Filed: 03/14/2025 15:33 Note Text: SUBJECTIVE Yenny Marshall is a 64 year old female here today for acute concern. Chief Complaint Patient presents with: Pain: in bilateral lower leg and feet. Left foot seems to be worse in arch and heel. Gabapentin doesn't seem to help the discomfort. Also takes Tylenol Extra Strength twice a day HPI Yenny is a 64-year-old female presenting with bilateral foot pain, more pronounced on the left side. Yenny reports a several-month history of bilateral foot pain, with the left foot being more severely affected. The pain is described as a sharp, dagger-like sensation primarily located in the heel and arch, radiating up to the knee. She also experiences burning and stinging sensations. The pain is intermittent, often occurring suddenly while sitting, and is exacerbated by touch. She has attempted various conservative treatments, including icing, using new arch supports, rolling her foot on a frozen water bottle, stretching, and applying an hjcj-qmt-wllobrx salve containing frankincense oil, all of which have provided only temporary relief. She is currently taking Celebrex, gabapentin, Cymbalta, and Tylenol BID for pain management. She also uses a muscle relaxant at half the prescribed dose at night for back spasms. Despite these measures, she continues to experience significant pain, which disrupts her sleep and daily activities. Yenny notes an increase in her physical activity due to her 's recent hospitalization and rehabilitation following a near-myocardial infarction and the placement of three stents. 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 She denies symptoms suggestive of neuropathy and has no history of diabetes, as confirmed by previous blood glucose tests. She also had foot X-rays in September, which showed no fractures. Her medications were reviewed today and her list is now up to date. Medications Current Outpatient Medications Medication Sig albuterol HFA (PROAIR HFA) 90 mcg/actuation inhaler Inhale 2 Puffs as instructed every 4 hours as needed. furosemide (LASIX) 20 mg tablet Take 0.5-1 tablets by mouth once daily as needed. for swelling in feet DULoxetine (CYMBALTA) 30 mg capsule Take 1 capsule by mouth every evening. DULoxetine (CYMBALTA) 60 mg capsule Take 1 capsule by mouth every morning. SUMAtriptan (IMITREX) 100 mg tablet Take 1 tablet by mouth as needed for migraine headache (see administration instructions). May repeat dose after 2 hours if needed. Maximum daily dose is 200 mg per day.TAKE 1 TABLET BY MOUTH AT ONSET OF HEADACHE MAY REPEAT IN 2 HOURS IF HEADACHE PERSISTS MAXIMUM DAILY DOSE OF 2 TABLETS ( 200 MILLIGRAMS ) EVERY 24 HOURS tiZANidine (ZANAFLEX) 2 mg tablet Take 1 tablet by mouth once daily as needed. As directed topiramate (TOPAMAX) 50 mg tablet Take 1 tablet by mouth every morning AND 2 tablets daily at bedtime. fluticasone (FLONASE) 50 mcg/actuation nasal spray Use 2 Sprays in each nostril once daily. Rinse mouth after use. gabapentin (NEURONTIN) 300 mg capsule Take 1 capsule by mouth every morning AND 2 capsules daily at bedtime AND 1 capsule every afternoon. Do all this for 180 days. As directed. celecoxib (CELEBREX) 200 mg capsule Take 1 capsule by mouth two times a day. for hip and arthritic pain. Take with food SPIRIVA RESPIMAT 2.5 mcg/actuation inhaler meclizine (ANTIVERT) 25 mg tab 4 TIMES DAILY NEEDED as needed for Dizziness ARIPiprazole (ABILIFY) 15 mg tablet Take 1 tablet by mouth once daily. Dr. Rodriguez albuterol (PROVENTIL) 2.5 mg /3 mL (0.083 %) nebulizer solution Use 3 mL via nebulizer four times daily as needed for Wheezing/Shortness of Breath. Inhale by nebulizer over 5-15 minutes hydrOXYzine pamoate (VISTARIL) 25 mg capsule Take 2 capsules by mouth four times daily as needed. Dr. Rodriguez predniSONE (DELTASONE) 10 mg tablet Take 2 tabs po BID for 2 days then 1 tab po BID for 2 days then 1/2 tab po BID for 2 days then 1/2 tab daily for 2 days then stop tamsulosin (FLOMAX) 0.4 mg Take 1 capsule by mouth once daily. OXYGEN, HOME THERAPY, 3 L/min by Nasal Cannula route as directed. At night Nebulizer Accessories kit Provide nebulizer kit. Current Facility-Administered Medications Medication Dose Route Frequency keTORolac 60 mg injection (Toradol) 60 mg INTRAMUSCULAR ONCE ALLERGIES Allergen Reactions Dilaudid [Hydromorp* Unknown Had dilaudid during surgery once and it led to respiratory depression and very slow breathing - she had slow/difficult emergence from anesthesia d/t this Latex Hives, Swelling, Itching Localized Penicillin G Unknown Penicillins Rash, Itching, Shortness of Breath, Hives ACTIVE PROBLEM LIST Vitamin D Deficiency - 12/30/2023 Class 3 Severe Obesity Due to Excess Calories With Body Mass Index (Bmi) of 40.0 to 44.9 in Adult - 11/27/2023 Mitral Valve Prolapse - 10/22/2023 Pulmonary Embolism (Hcc) - 05/29/2023 Chronic Bilateral Low Back Pain With Bilateral Sciatica - 09/01/2019 Biliary Dyskinesia - 08/24/2018 Comment: Added automatically from request for surgery [id number] Class 2 Obesity Due to Excess Calories With Body Mass Index (Bmi) of 38.0 to 38.9 in Adult - 05/11/2018 Altered Bowel Habits - 10/28/2017 Comment: Added automatically from request for surgery [id number] Osteoarthritis of Lumbar Spine - 08/22/2015 Bilateral Foot Pain - 07/13/2015 Edema of Both Legs - 05/29/2015 Thoracic Myofascial Strain - 01/10/2015 Right Hip Pain - 08/04/2014 Snoring Disorder - 12/15/2012 Mdd (Major Depressive Disorder), Recurrent Episode - 08/05/2012 Comment: Dx made by Dr Rodriguez 06/2012, r/o Bipolar Disorder Alcohol Dependence in Remission (Hcc) - 08/05/2012 Comment: Dx per Dr Rodriguez 06/2012 History of substance abuse ([facility]) - 08/05/2012 Comment: In remission, Dx per Dr Rodriguez 06/2012 Migraine - 04/02/2012 Asthma ([facility]) Hematuria - 11/25/2011 Chronic Pelvic Pain in Female - 11/25/2011 Urgency of Urination - 11/25/2011 Frequency of Urination - 11/25/2011 Oab (Overactive Bladder) - 11/25/2011 Smoking History - 11/25/2011 Lumbar Radiculopathy - 04/17/2011 Ddd (Degenerative Disc Disease), Cervical - 04/17/2011 Ddd (Degenerative Disc Disease), Lumbar - 04/17/2011 Disc Displacement, Lumbar - 04/17/2011 Cervical Disc Displacement - 04/17/2011 Social History Tobacco Use Smoking status: Former Current packs/day: 0.00 Average packs/day: 1 pack/day for 48.8 years (48.8 ttl pk-yrs) Types: Cigarettes Start date: 11/02/1973 Quit date: 08/13/2022 Years since quittin.5 Smokeless tobacco: Never Tobacco comments: Started smoking at age 14, 1ppd. Both parents smokers. Vaping Use Vaping status: Never Used Substance Use Topics Alcohol use: Not Currently Comment: August 27, 2009 quit Drug use: No Comment: past history of cocaine and marijuana- quit 2008 Review of Systems Respiratory: Negative. Cardiovascular: Negative. OBJECTIVE BP 106/70 Pulse 101 Wt 226 lb 6.6 oz (102.7kg) SpO2 95% LMP 03/09/2013 Physical Exam Vitals and nursing note reviewed. Constitutional: General: She is awake. She is not in acute distress. Appearance: Normal appearance. She is well-developed and well-groomed. She is not ill-appearing, toxic-appearing or diaphoretic. HENT: Head: Normocephalic. Right Ear: External ear normal. Left Ear: External ear normal. Nose: Nose normal. Eyes: General: Vision grossly intact. Conjunctiva/sclera: Conjunctivae normal. Pupils: Pupils are equal, round, and reactive to light. Neck: Vascular: No JVD. Trachea: Trachea normal. Cardiovascular: Pulses: Normal pulses. Pulmonary: Effort: Pulmonary effort is normal. No accessory muscle usage, prolonged expiration or respiratory distress. Musculoskeletal: Right lower leg: No edema. Left lower leg: No edema. Feet: Feet: Comments: Pain in the center of the arch that extends to the heel Skin: General: Skin is warm and dry. Capillary Refill: Capillary refill takes less than 2 seconds. Neurological: General: No focal deficit present. Mental Status: She is alert and oriented to person, place, and time. Mental status is at baseline. Psychiatric: Attention and Perception: Attention and perception normal. Mood and Affect: Mood and affect normal. Speech: Speech normal. Behavior: Behavior normal. Behavior is cooperative. Thought Content: Thought content normal. Cognition and Memory: Cognition and memory normal. Judgment: Judgment normal. ASSESSMENT/PLAN: 1. Left foot pain (M79.672) Right foot pain (M79.671) Plantar fasciitis of left foot (M72.2) Chronic bilateral foot pain, predominantly in the left foot, with a duration of several months. Pain is described as sharp, burning, and stinging, localized primarily to the heel and arch, with radiation up to the knee. Previous interventions including ice, arch supports, stretching, and topical salves have provided minimal relief. Current medications include Celebrex, gabapentin, Cymbalta, and occasional muscle relaxants and Tylenol. Recent x-rays in September showed no fractures. Differential diagnosis includes plantar fasciitis, given the location and nature of the pain. - Administered Toradol 60 mg IM injection today. - Initiated prednisone therapy; instructed patient to discontinue Celebrex during the course of prednisone. - Advised continuation of home remedies such as rolling the foot on a frozen water bottle and using a tennis ball for massage. - If pain persists, recommended follow-up with Dr. Charles for potential corticosteroid injections into the plantar fascia. - Provided work note for today; patient plans to return to work tomorrow. 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 Patient/authorized customer service representative teacher agreed to proceed Portions of this note have been entered by ancillary staff. I have reviewed and when necessary edited, so that they are an adequate record of my encounter with this patient Please note that parts of this document were created using voice recognition software and therefore may contain grammatical errors. Patient verbalizes understanding of instructions from today's visit and in agreement with treatment plan. Questions answered. Agrees to call the office if questions, concerns of issues with acute symptoms not improving or if they worsen. See diagnoses and orders for additional plan(s). Allergies and medications were reviewed, list was updated, and refills given if needed. Past medical, surgical, social, and family history reviewed and updated as appropriate. Encouraged proper diet AND exercise as well as compliance with taking medications. Age-appropriate health preventative measures were discussed. Return if symptoms worsen or fail to improve, for Keep next scheduled appointment.. Neha Sheppard APRN-[facility] [place] Observed: 01/26/2025 12:00 AM Status: COMPLETED Source: [facility] Telephone (INTMWS) YENNY MARSHALL ([id number]) 1960 F Date Time Provider Department 01/26/25 SOTO RUSHING INTMWS During your visit today, we recorded the following information about you: Kristen Hannah LPN 01/26/2025 9:08 AM Signed Patient calling she dropped off insurance form in main lobby this morning to be completed. Went over notes from 01/25 that for was completed and faxed back on 01/19/2025. Patient not sure if it is the same form, she is calling to insurance to tell them, form faxed back on 01/19. Aware PCP is out of the office today. Please advise Soto Rushing MD 01/26/2025 3:01 PM Signed Am in the office this afternoon. Let me know if different form that needs completed Carolina Kuo LPN 02/01/2025 9:08 AM Signed Called pt she states her [place] is coming in to see you omn the of this month will talk to you about it at that time. Allergies As of Date: 01/26/2025 Noted Allergy Reaction DILAUDID (HYDROMORPHONE) 10/22/2023 16 - Unknown Comments: Had dilaudid during surgery once and it led to respiratory depression and very slow breathing - she had slow/difficult emergence from anesthesia d/t this LATEX 04/17/2014 4 - Hives 7 - Swelling 9 - Itching Comments: Localized PENICILLIN G 04/22/2011 16 - Unknown PENICILLINS 04/17/2011 2 - Rash 9 - Itching 12 - Shortness of Breath 4 - Hives Date Reviewed: 01/19/2025 Reviewed by: Prisca Rollins OCCA - Fully Assessed Reason for Visit: insurance form [Other] Prescriptions as of 02/01/2025 - albuterol HFA (PROAIR HFA) 90 mcg/actuation inhaler Inhale 2 Puffs as instructed every 4 hours as needed. - tamsulosin (FLOMAX) 0.4 mg Take 1 capsule by mouth once daily. - furosemide (LASIX) 20 mg tablet Take 0.5-1 tablets by mouth once daily as needed. for swelling in feet - DULoxetine (CYMBALTA) 30 mg capsule Take 1 capsule by mouth every evening. - DULoxetine (CYMBALTA) 60 mg capsule Take 1 capsule by mouth every morning. - SUMAtriptan (IMITREX) 100 mg tablet Take 1 tablet by mouth as needed for migraine headache (see administration instructions). May repeat dose after 2 hours if needed. Maximum daily dose is 200 mg per day.TAKE 1 TABLET BY MOUTH AT ONSET OF HEADACHE MAY REPEAT IN 2 HOURS IF HEADACHE PERSISTS MAXIMUM DAILY DOSE OF 2 TABLETS ( 200 MILLIGRAMS ) EVERY 24 HOURS - tiZANidine (ZANAFLEX) 2 mg tablet Take 1 tablet by mouth once daily as needed. As directed - topiramate (TOPAMAX) 50 mg tablet Take 1 tablet by mouth every morning AND 2 tablets daily at bedtime. - fluticasone (FLONASE) 50 mcg/actuation nasal spray Use 2 Sprays in each nostril once daily. Rinse mouth after use. - gabapentin (NEURONTIN) 300 mg capsule Take 1 capsule by mouth every morning AND 2 capsules daily at bedtime AND 1 capsule every afternoon. Do all this for 180 days. As directed. - celecoxib (CELEBREX) 200 mg capsule Take 1 capsule by mouth two times a day. for hip and arthritic pain. Take with food - SPIRIVA RESPIMAT 2.5 mcg/actuation inhaler - dicyclomine (BENTYL) 10 mg capsule Take 1 capsule by mouth before meals and at bedtime. - meclizine (ANTIVERT) 25 mg tab 4 TIMES DAILY NEEDED as needed for Dizziness - OXYGEN, HOME THERAPY, 3 L/min by Nasal Cannula route as directed. At night - ARIPiprazole (ABILIFY) 15 mg tablet Take 1 tablet by mouth once daily. Dr. Rodriguez - Nebulizer Accessories kit Provide nebulizer kit. - albuterol (PROVENTIL) 2.5 mg /3 mL (0.083 %) nebulizer solution Use 3 mL via nebulizer four times daily as needed for Wheezing/Shortness of Breath. Inhale by nebulizer over 5-15 minutes - hydrOXYzine pamoate (VISTARIL) 25 mg capsule Take 2 capsules by mouth four times daily as needed. Dr. Rodriguez Meds Comments as of 04/29/2023: April 29, 2023. Patient started new Levaquin Rx today. Disha Tim RN Problem List As Of Date 01/26/2025 Noted Resolved Lumbar radiculopathy [M54.16] 04/17/2011 DDD (degenerative disc disease), cervical [M50.*04/17/2011 DDD (degenerative disc disease), lumbar [M51.36*04/17/2011 Disc displacement, lumbar [M51.26] 04/17/2011 Cervical disc displacement [M50.20] 04/17/2011 Hematuria [R31.9] 11/25/2011 Chronic pelvic pain in female [R10.2, G89.29] 11/25/2011 Urgency of urination [R39.15] 11/25/2011 Frequency of urination [R35.0] 11/25/2011 OAB (overactive bladder) [N32.81] 11/25/2011 Smoking history [Z87.891] 11/25/2011 Asthma [J45.909] Migraine [G43.909] 04/02/2012 MDD (major depressive disorder), recurrent epis*08/05/2012 Alcohol dependence in remission (HCC) [F10.21] 08/05/2012 History of substance abuse (HCC) [F19.11] 08/05/2012 Snoring disorder [R06.83] 12/15/2012 Depression [F32.A] 06/11/2022 Right hip pain [M25.551] 08/04/2014 Thoracic myofascial strain [S29.019A] 01/10/2015 Edema of both legs [R60.0] 05/29/2015 Bilateral foot pain [M79.671, M79.672] 07/13/2015 Osteoarthritis of lumbar spine [M47.816] 08/22/2015 Altered bowel habits [R19.4] 10/28/2017 Class 2 obesity due to excess calories with bod*05/11/2018 Biliary dyskinesia [K82.8] 08/24/2018 Obesity, Class I, BMI 30-34.9 [E66.811] 05/23/2019 06/11/2022 Chronic bilateral low back pain with bilateral *09/01/2019 Class 2 obesity due to excess calories without *05/11/2018 11/30/2019 Pulmonary embolism (HCC) [I26.99] 05/29/2023 Mitral valve prolapse [I34.1] 10/22/2023 Class 3 severe obesity due to excess calories w*11/27/2023 Vitamin D deficiency [E55.9] 12/30/2023 Encounter Status:Closed by NEHA SHEPPARD on 02/01/25 JENS Observed: 01/25/2025 12:00 AM Status: COMPLETED Source: [facility] Telephone (INTMWS) YENNY MARSHALL ([id number]) 1960 F Date Time Provider Department 01/25/25 SOTO RUSHING INTMWS During your visit today, we recorded the following information about you: Jaky Hebert, MARIO 01/25/2025 3:06 PM Signed Patient calls to report that she has forms that have to be filled out for [facility] for her chronic conditions. She reports that the forms are to prevent her from losing her insurance and they have to be filled out by the end of the month. Patient is going to drop forms off in the morning on her way to work. She reports that the fax number and phone number is on the forms. For any questions patient can be reached at [phone]. MARIO Lassiter Janice, LPN 01/26/2025 8:34 AM Signed This was completed and faxed back on 01/19/25. Pt notified via [employer]. Kelsi Tristan LPN 01/27/2025 9:12 AM Signed Pt has brought in anther form and this has been completed although there is a spot for pt to sign. She was notified. She will pick this up in medical records to sign. Copied for scanned documents. Allergies As of Date: 01/25/2025 Noted Allergy Reaction DILAUDID (HYDROMORPHONE) 10/22/2023 16 - Unknown Comments: Had dilaudid during surgery once and it led to respiratory depression and very slow breathing - she had slow/difficult emergence from anesthesia d/t this LATEX 04/17/2014 4 - Hives 7 - Swelling 9 - Itching Comments: Localized PENICILLIN G 04/22/2011 16 - Unknown PENICILLINS 04/17/2011 2 - Rash 9 - Itching 12 - Shortness of Breath 4 - Hives Date Reviewed: 01/19/2025 Reviewed by: Prisca Rollins OCCA - Fully Assessed Reason for Visit: Forms [913] Prescriptions as of 01/27/2025 - albuterol HFA (PROAIR HFA) 90 mcg/actuation inhaler Inhale 2 Puffs as instructed every 4 hours as needed. - tamsulosin (FLOMAX) 0.4 mg Take 1 capsule by mouth once daily. - furosemide (LASIX) 20 mg tablet Take 0.5-1 tablets by mouth once daily as needed. for swelling in feet - DULoxetine (CYMBALTA) 30 mg capsule Take 1 capsule by mouth every evening. - DULoxetine (CYMBALTA) 60 mg capsule Take 1 capsule by mouth every morning. - SUMAtriptan (IMITREX) 100 mg tablet Take 1 tablet by mouth as needed for migraine headache (see administration instructions). May repeat dose after 2 hours if needed. Maximum daily dose is 200 mg per day.TAKE 1 TABLET BY MOUTH AT ONSET OF HEADACHE MAY REPEAT IN 2 HOURS IF HEADACHE PERSISTS MAXIMUM DAILY DOSE OF 2 TABLETS ( 200 MILLIGRAMS ) EVERY 24 HOURS - tiZANidine (ZANAFLEX) 2 mg tablet Take 1 tablet by mouth once daily as needed. As directed - topiramate (TOPAMAX) 50 mg tablet Take 1 tablet by mouth every morning AND 2 tablets daily at bedtime. - fluticasone (FLONASE) 50 mcg/actuation nasal spray Use 2 Sprays in each nostril once daily. Rinse mouth after use. - gabapentin (NEURONTIN) 300 mg capsule Take 1 capsule by mouth every morning AND 2 capsules daily at bedtime AND 1 capsule every afternoon. Do all this for 180 days. As directed. - celecoxib (CELEBREX) 200 mg capsule Take 1 capsule by mouth two times a day. for hip and arthritic pain. Take with food - SPIRIVA RESPIMAT 2.5 mcg/actuation inhaler - dicyclomine (BENTYL) 10 mg capsule Take 1 capsule by mouth before meals and at bedtime. - meclizine (ANTIVERT) 25 mg tab 4 TIMES DAILY NEEDED as needed for Dizziness - OXYGEN, HOME THERAPY, 3 L/min by Nasal Cannula route as directed. At night - ARIPiprazole (ABILIFY) 15 mg tablet Take 1 tablet by mouth once daily. Dr. Rodriguez - Nebulizer Accessories kit Provide nebulizer kit. - albuterol (PROVENTIL) 2.5 mg /3 mL (0.083 %) nebulizer solution Use 3 mL via nebulizer four times daily as needed for Wheezing/Shortness of Breath. Inhale by nebulizer over 5-15 minutes - hydrOXYzine pamoate (VISTARIL) 25 mg capsule Take 2 capsules by mouth four times daily as needed. Dr. Rodriguez [facility] Comments as of 04/29/2023: April 29, 2023. Patient started new Levaquin Rx today. Disha Tim RN Problem List As Of Date 01/25/2025 Noted Resolved Lumbar radiculopathy [M54.16] 04/17/2011 DDD (degenerative disc disease), cervical [M50.*04/17/2011 DDD (degenerative disc disease), lumbar [M51.36*04/17/2011 Disc displacement, lumbar [M51.26] 04/17/2011 Cervical disc displacement [M50.20] 04/17/2011 Hematuria [R31.9] 11/25/2011 Chronic pelvic pain in female [R10.2, G89.29] 11/25/2011 Urgency of urination [R39.15] 11/25/2011 Frequency of urination [R35.0] 11/25/2011 OAB (overactive bladder) [N32.81] 11/25/2011 Smoking history [Z87.891] 11/25/2011 Asthma [J45.909] Migraine [G43.909] 04/02/2012 MDD (major depressive disorder), recurrent epis*08/05/2012 Alcohol dependence in remission (HCC) [F10.21] 08/05/2012 History of substance abuse (HCC) [F19.11] 08/05/2012 Snoring disorder [R06.83] 12/15/2012 Depression [F32.A] 06/11/2022 Right hip pain [M25.551] 08/04/2014 Thoracic myofascial strain [S29.019A] 01/10/2015 Edema of both legs [R60.0] 05/29/2015 Bilateral foot pain [M79.671, M79.672] 07/13/2015 Osteoarthritis of lumbar spine [M47.816] 08/22/2015 Altered bowel habits [R19.4] 10/28/2017 Class 2 obesity due to excess calories with bod*05/11/2018 Biliary dyskinesia [K82.8] 08/24/2018 Obesity, Class I, BMI 30-34.9 [E66.811] 05/23/2019 06/11/2022 Chronic bilateral low back pain with bilateral *09/01/2019 Class 2 obesity due to excess calories without *05/11/2018 11/30/2019 Pulmonary embolism (HCC) [I26.99] 05/29/2023 Mitral valve prolapse [I34.1] 10/22/2023 Class 3 severe obesity due to excess calories w*11/27/2023 Vitamin D deficiency [E55.9] 12/30/2023 Encounter Status:Closed by KELSI TRISTAN on 01/26/25 PROGRESS Observed: 01/19/2025 11:23 AM Status: COMPLETED [id number] Author: MILVIA KIM APRN.TANK Service: ? Author Type: Nurse Practitioner Type: Progress Notes Filed: 01/19/2025 11:27 Note Text: CC: Patient presents with: Headache: With fatigue and diarrhea x 2 days, patient states this may be an irritable bowel flare, has been drinking water and Tylenol without relief of NIELSEN HPI Yenny is a 64-year-old female presenting with headache, diarrhea, and fatigue. The patient consented to the use of Rethink software for draft documentation of the visit consistent with [facility]?s Notice of Privacy Practices. Headache: - Onset since Thursday. - Persistent despite taking Tylenol. - Associated with generalized body aches, chills and runny nose. - Denies fever, cough, sore throat, or ear pain. Diarrhea: - Chronic history, typically associated with anxiety or IBS. - Current episodes occurring 3-4 times daily. - Uncertain if current diarrhea is different from baseline. - Denies hematochezia, melena, or abdominal cramping. - Taking dicyclomine with minimal relief; also uses Imodium and Metamucil. - Denies recent consumption of potentially contaminated food. - Denies emesis. Fatigue: - Significant fatigue, leading to early bedtime at 1900 last night. - Fatigue and headache are most bothersome symptoms. - Left work early due to inability to focus. Exposure History: - Attended a [employer] meetings recently, with exposure to large groups of people. - Denies known exposure to sick individuals. Review of Systems HENT: Negative for congestion. Respiratory: Negative for shortness of breath and wheezing. Cardiovascular: Negative for chest pain, palpitations and leg swelling. Gastrointestinal: Negative for abdominal pain, nausea and vomiting. Genitourinary: Negative for decreased urine volume. Neurological: Negative for dizziness, syncope, weakness and light-headedness. PAST MEDICAL HISTORY Diagnosis Date Arrhythmia Asthma Blood dyscrasia Cervical disc displacement 04/17/2011 Chronic obstructive pulmonary disease (COPD) ([facility]) Class 2 obesity due to excess calories without serious comorbidity with body mass index (BMI) of 37.0 to 37.9 in adult 05/11/2018 Degenerative disk disease bulging disks Depression Foot fracture, right 2003 Fell off ladder and fractured right foot H/O ETOH abuse In remission/recovery over 10 years (as of 11/2019) Lactose intolerance Lumbar radiculopathy 04/17/2011 Migraine 04/02/2012 Mitral valve prolapse KALPESH (obstructive sleep apnea) 12/15/2012 KALPESH (obstructive sleep apnea) 12/15/2012 SLEEP ARCHITECTURE: PSG 10/05/2012 The study started at 22:34:01 and ended at 06:39:39. Total sleep time was 405 minutes resulting in a sleep efficiency of 92.2% (TRT = 439 m). There were 14 awakenings with a total time awake after sleep onset of 11.0 minutes. The sleep latency was 23.0 minutes and the REM latency was 308 minutes. Snoring Substance abuse (HCC) In remission >10 years (as of 11/2019) PAST SURGICAL HISTORY Procedure Laterality Date COLONOSCOPY FLX DX W/COLLJ SPEC WHEN PFRMD 11/25/2017 Colonoscopy EXTENSIVE FOOT SURGERY 2002,2004 right foot due to fall from ladder KNEE LEFT OP SURGERY 2003 Growth on left tibia removed, non cancerous LAPAROSCOPY SURG CHOLECYSTECTOMY 09/06/2018 Cholecystectomy, lap NOSE basal cell removal PAST SURGICAL HISTORY OF 12/1982 tubal ligation PAST SURGICAL HISTORY OF 04/03/2013 DANN, BSO, cyctoscopy 04/2013 PAST SURGICAL HISTORY OF 2012 reconstruction of urethra PAST SURGICAL HISTORY OF lumbar injections- Dr Kimball TOOTH EXTRACTION TOTAL KNEE REPLACEMENT Right 11/27/2023 Robotic assisted Right total knee replacement ALLERGIES Dilaudid [Hydromorphone], Latex, Penicillin G, and Penicillins MEDICATIONS albuterol HFA (PROAIR HFA) 90 mcg/actuation inhaler Inhale 2 Puffs as instructed every 4 hours as needed. tamsulosin (FLOMAX) 0.4 mg Take 1 capsule by mouth once daily. furosemide (LASIX) 20 mg tablet Take 0.5-1 tablets by mouth once daily as needed. for swelling in feet DULoxetine (CYMBALTA) 30 mg capsule Take 1 capsule by mouth every evening. DULoxetine (CYMBALTA) 60 mg capsule Take 1 capsule by mouth every morning. SUMAtriptan (IMITREX) 100 mg tablet Take 1 tablet by mouth as needed for migraine headache (see administration instructions). May repeat dose after 2 hours if needed. Maximum daily dose is 200 mg per day.TAKE 1 TABLET BY MOUTH AT ONSET OF HEADACHE MAY REPEAT IN 2 HOURS IF HEADACHE PERSISTS MAXIMUM DAILY DOSE OF 2 TABLETS ( 200 MILLIGRAMS ) EVERY 24 HOURS tiZANidine (ZANAFLEX) 2 mg tablet Take 1 tablet by mouth once daily as needed. As directed topiramate (TOPAMAX) 50 mg tablet Take 1 tablet by mouth every morning AND 2 tablets daily at bedtime. fluticasone (FLONASE) 50 mcg/actuation nasal spray Use 2 Sprays in each nostril once daily. Rinse mouth after use. gabapentin (NEURONTIN) 300 mg capsule Take 1 capsule by mouth every morning AND 2 capsules daily at bedtime AND 1 capsule every afternoon. Do all this for 180 days. As directed. celecoxib (CELEBREX) 200 mg capsule Take 1 capsule by mouth two times a day. for hip and arthritic pain. Take with food SPIRIVA RESPIMAT 2.5 mcg/actuation inhaler dicyclomine (BENTYL) 10 mg capsule Take 1 capsule by mouth before meals and at bedtime. meclizine (ANTIVERT) 25 mg tab 4 TIMES DAILY NEEDED as needed for Dizziness OXYGEN, HOME THERAPY, 3 L/min by Nasal Cannula route as directed. At night ARIPiprazole (ABILIFY) 15 mg tablet Take 1 tablet by mouth once daily. Dr. Rodriguez Nebulizer Accessories kit Provide nebulizer kit. albuterol (PROVENTIL) 2.5 mg /3 mL (0.083 %) nebulizer solution Use 3 mL via nebulizer four times daily as needed for Wheezing/Shortness of Breath. Inhale by nebulizer over 5-15 minutes hydrOXYzine pamoate (VISTARIL) 25 mg capsule Take 2 capsules by mouth four times daily as needed. Dr. Rodriguez FAMILY HISTORY Problem Relation Age of Onset Arthritis Mother COPD Mother Hypertension Father Cancer Maternal Grandfather Lung Cancer Other Lung. Several maternal family members. Anesthesia Problems No Family History Social History Tobacco Use Smoking status: Former Current packs/day: 0.00 Average packs/day: 1 pack/day for 48.8 years (48.8 ttl pk-yrs) Types: Cigarettes Start date: 11/02/1973 Quit date: 08/13/2022 Years since quittin.4 Smokeless tobacco: Never Tobacco comments: Started smoking at age 14, 1ppd. Both parents smokers. Vaping Use Vaping status: Never Used Substance Use Topics Alcohol use: Not Currently Comment: August 27, 2009 quit Drug use: No Comment: past history of cocaine and marijuana- quit 2009 BP 122/84 (BP Site: Left Arm, BP Position: Sitting) Pulse 88 Temp 36.5 ?C (97.7 ?F) Resp 16 Wt 101.8 kg (224 lb 6.9 oz) LMP 03/09/2013 SpO2 96% BMI 40.72 kg/m? Physical Exam Vitals reviewed. Constitutional: General: She is not in acute distress. Appearance: She is ill-appearing. She is not toxic-appearing. HENT: Head: Normocephalic and atraumatic. Right Ear: Tympanic membrane normal. Left Ear: Tympanic membrane normal. Nose: Nose normal. Mouth/Throat: Mouth: Mucous membranes are moist. Pharynx: Oropharynx is clear. Eyes: Conjunctiva/sclera: Conjunctivae normal. Cardiovascular: Rate and Rhythm: Normal rate and regular rhythm. Heart sounds: Normal heart sounds. No murmur heard. Pulmonary: Effort: Pulmonary effort is normal. Breath sounds: Normal breath sounds. No wheezing, rhonchi or rales. Abdominal: General: Bowel sounds are normal. There is no distension. Palpations: Abdomen is soft. There is no hepatomegaly, splenomegaly or mass. Tenderness: There is no abdominal tenderness. Lymphadenopathy: Cervical: No cervical adenopathy. Skin: General: Skin is warm and dry. Neurological: Mental Status: She is alert. Assessment/Plan 1. Diarrhea, unspecified type (R19.7) - Experiencing diarrhea 3-4 times daily, with associated fatigue and headache since Thursday. No fever, cough, or sore throat; reports runny nose and itchy ears. No blood or melena in stools; denies abdominal cramping or vomiting. - Differential diagnosis includes viral gastroenteritis and COVID-19. - Ordered COVID-19 test to rule out viral etiology. - Advised adherence to a bland diet (BRAT: bananas, rice, applesauce, toast) and avoidance of spicy, greasy, or fatty foods, as well as dairy products. - Emphasized importance of maintaining hydration; recommended oral rehydration solutions like Pedialyte or low-sugar Gatorade. - Provided work note for today and tomorrow pending COVID-19 test results. 2. Persistent headaches (R51.9) - Headache persistent since Thursday, unresponsive to Tylenol. - Differential diagnosis includes viral infection and COVID-19. - Ordered COVID-19 test. - Advised continued hydration and rest. 3. Fatigue, unspecified type (R53.83) - Fatigue concurrent with diarrhea and headache; no dyspnea reported. - Differential diagnosis includes viral infection and COVID-19. - Ordered COVID-19 test. - Advised rest and adequate fluid intake. Prescription instructions reviewed with patient as applicable. Potential red flag symptoms discussed with the patient. Reviewed appropriate action plan to take if red flag symptoms occur. Patient agreeable to treatment plan. Milvia Kim APRN.[facility] REGISTERED NURSE ICU Medical Decision Making: Problems: Moderate: Acute illness with systemic symptoms Risk: Low: Low risk from testing/treatment Medical Decision Making Level: 3 - Low FLUABV+SARS-COV-2+RSV PNL RE SP JEANETTE+PROBE Observed: 01/19/2025 11:15 AM Status: F Source: [facility] SARS-COV-2 (AGENT OF COVID-1 9) RNA: Not detectedINFLUENZA A RNA: Not detectedINFLUENZA B RNA: Not detectedRESPIRATORY SYNCYTIAL VIRUS (RSV) RNA: Not detected Performed By: #### [id number] # ### [facility] CLIA [id number] [address] [place] [address] OF [facility] CNOV Observed: 01/19/2025 10:40 AM Status: COMPLETED Source: [facility] Office Visit (INTMWS) YENNY MARSHALL ([id number]) 1960 F Date Time Provider Department 01/19/25 10:40 AM MILVIA KIM INTMWS During your visit today, we recorded the following information about you: Temperature Pulse Respiration Blood pressure 97.7 degrees 88/minute 16/minute 122/84 Weight 101.8 kg Milvia KimJUVEN.[facility] REGISTERED NURSE ICU 01/19/2025 11:01 AM Signed - Follow a bland diet (BRAT diet: bananas, rice, applesauce, toast) and avoid spicy, greasy, or fatty foods. - Avoid dairy products to prevent worsening diarrhea. - Stay hydrated by drinking plenty of water; consider using Pedialyte or low-sugar Gatorade for added electrolytes. - Continue taking Dicyclomine as prescribed for diarrhea and/or over the counter Imodium - COVID-19 test will be conducted today; results are expected by tomorrow. - Rest and monitor symptoms; if symptoms worsen or do not improve, seek medical attention. Milvia Kim APRN.[facility] REGISTERED NURSE ICU 01/19/2025 11:27 AM Signed CC: Patient presents with: Headache: With fatigue and diarrhea x 2 days, patient states this may be an irritable bowel flare, has been drinking water and Tylenol without relief of NIELSEN PALLAVI Ramon is a 64-year-old female presenting with headache, diarrhea, and fatigue. The patient consented to the use of [employer] software for draft documentation of the visit consistent with [facility]?s Notice of Privacy Practices. Headache: - Onset since Thursday. - Persistent despite taking Tylenol. - Associated with generalized body aches, chills and runny nose. - Denies fever, cough, sore throat, or ear pain. Diarrhea: - Chronic history, typically associated with anxiety or IBS. - Current episodes occurring 3-4 times daily. - Uncertain if current diarrhea is different from baseline. - Denies hematochezia, melena, or abdominal cramping. - Taking dicyclomine with minimal relief; also uses Imodium and Metamucil. - Denies recent consumption of potentially contaminated food. - Denies emesis. Fatigue: - Significant fatigue, leading to early bedtime at 1900 last night. - Fatigue and headache are most bothersome symptoms. - Left work early due to inability to focus. Exposure History: - Attended a [employer] and AA meetings recently, with exposure to large groups of people. - Denies known exposure to sick individuals. Review of Systems HENT: Negative for congestion. Respiratory: Negative for shortness of breath and wheezing. Cardiovascular: Negative for chest pain, palpitations and leg swelling. Gastrointestinal: Negative for abdominal pain, nausea and vomiting. Genitourinary: Negative for decreased urine volume. Neurological: Negative for dizziness, syncope, weakness and light-headedness. PAST MEDICAL HISTORY Diagnosis Date Arrhythmia Asthma Blood dyscrasia Cervical disc displacement 04/17/2011 Chronic obstructive pulmonary disease (COPD) ([facility]) Class 2 obesity due to excess calories without serious comorbidity with body mass index (BMI) of 37.0 to 37.9 in adult 05/11/2018 Degenerative disk disease bulging disks Depression Foot fracture, right 2003 Fell off ladder and fractured right foot H/O ETOH abuse In remission/recovery over 10 years (as of 11/2019) Lactose intolerance Lumbar radiculopathy 04/17/2011 Migraine 04/02/2012 Mitral valve prolapse KALPESH (obstructive sleep apnea) 12/15/2012 KALPESH (obstructive sleep apnea) 12/15/2012 SLEEP ARCHITECTURE: PSG 10/05/2012 The study started at 22:34:01 and ended at 06:39:39. Total sleep time was 405 minutes resulting in a sleep efficiency of 92.2% (TRT = 439 m). There were 14 awakenings with a total time awake after sleep onset of 11.0 minutes. The sleep latency was 23.0 minutes and the REM latency was 308 minutes. Snoring Substance abuse ([facility]) In remission >10 years (as of 11/2019) PAST SURGICAL HISTORY Procedure Laterality Date COLONOSCOPY FLX DX W/COLLJ SPEC WHEN PFRMD 11/25/2017 Colonoscopy EXTENSIVE FOOT SURGERY 2002,2004 right foot due to fall from ladder KNEE LEFT OP SURGERY 2004 Growth on left tibia removed, non cancerous LAPAROSCOPY SURG CHOLECYSTECTOMY 09/06/2018 Cholecystectomy, lap NOSE 02/12, basal cell removal PAST SURGICAL HISTORY OF 12/1982 tubal ligation PAST SURGICAL HISTORY OF 04/03/2013 DANN, BSO, cyctoscopy 04/2013 PAST SURGICAL HISTORY OF 2012 reconstruction of urethra PAST SURGICAL HISTORY OF lumbar injections- Dr Kimball TOOTH EXTRACTION TOTAL KNEE REPLACEMENT Right 11/27/2023 Robotic assisted Right total knee replacement ALLERGIES Dilaudid [Hydromorphone], Latex, Penicillin G, and Penicillins MEDICATIONS albuterol HFA (PROAIR HFA) 90 mcg/actuation inhaler Inhale 2 Puffs as instructed every 4 hours as needed. tamsulosin (FLOMAX) 0.4 mg Take 1 capsule by mouth once daily. furosemide (LASIX) 20 mg tablet Take 0.5-1 tablets by mouth once daily as needed. for swelling in feet DULoxetine (CYMBALTA) 30 mg capsule Take 1 capsule by mouth every evening. DULoxetine (CYMBALTA) 60 mg capsule Take 1 capsule by mouth every morning. SUMAtriptan (IMITREX) 100 mg tablet Take 1 tablet by mouth as needed for migraine headache (see administration instructions). May repeat dose after 2 hours if needed. Maximum daily dose is 200 mg per day.TAKE 1 TABLET BY MOUTH AT ONSET OF HEADACHE MAY REPEAT IN 2 HOURS IF HEADACHE PERSISTS MAXIMUM DAILY DOSE OF 2 TABLETS ( 200 MILLIGRAMS ) EVERY 24 HOURS tiZANidine (ZANAFLEX) 2 mg tablet Take 1 tablet by mouth once daily as needed. As directed topiramate (TOPAMAX) 50 mg tablet Take 1 tablet by mouth every morning AND 2 tablets daily at bedtime. fluticasone (FLONASE) 50 mcg/actuation nasal spray Use 2 Sprays in each nostril once daily. Rinse mouth after use. gabapentin (NEURONTIN) 300 mg capsule Take 1 capsule by mouth every morning AND 2 capsules daily at bedtime AND 1 capsule every afternoon. Do all this for 180 days. As directed. celecoxib (CELEBREX) 200 mg capsule Take 1 capsule by mouth two times a day. for hip and arthritic pain. Take with food SPIRIVA RESPIMAT 2.5 mcg/actuation inhaler dicyclomine (BENTYL) 10 mg capsule Take 1 capsule by mouth before meals and at bedtime. meclizine (ANTIVERT) 25 mg tab 4 TIMES DAILY NEEDED as needed for Dizziness OXYGEN, HOME THERAPY, 3 L/min by Nasal Cannula route as directed. At night ARIPiprazole (ABILIFY) 15 mg tablet Take 1 tablet by mouth once daily. Dr. Rodriguez Nebulizer Accessories kit Provide nebulizer kit. albuterol (PROVENTIL) 2.5 mg /3 mL (0.083 %) nebulizer solution Use 3 mL via nebulizer four times daily as needed for Wheezing/Shortness of Breath. Inhale by nebulizer over 5-15 minutes hydrOXYzine pamoate (VISTARIL) 25 mg capsule Take 2 capsules by mouth four times daily as needed. Dr. Rodriguez FAMILY HISTORY Problem Relation Age of Onset Arthritis Mother COPD Mother Hypertension Father Cancer Maternal Grandfather Lung Cancer Other Lung. Several maternal family members. Anesthesia Problems No Family History Social History Tobacco Use Smoking status: Former Current packs/day: 0.00 Average packs/day: 1 pack/day for 48.8 years (48.8 ttl pk-yrs) Types: Cigarettes Start date: 11/02/1973 Quit date: 08/13/2022 Years since quittin.4 Smokeless tobacco: Never Tobacco comments: Started smoking at age 14, 1ppd. Both parents smokers. Vaping Use Vaping status: Never Used Substance Use Topics Alcohol use: Not Currently Comment: August 27, 2009 quit Drug use: No Comment: past history of cocaine and marijuana- quit 2008 BP 122/84 (BP Site: Left Arm, BP Position: Sitting) Pulse 88 Temp 36.5 ?C (97.7 ?F) Resp 16 Wt 101.8 kg (224 lb 6.9 oz) LMP 03/09/2013 SpO2 96% BMI 40.72 kg/m? Physical Exam Vitals reviewed. Constitutional: General: She is not in acute distress. Appearance: She is ill-appearing. She is not toxic-appearing. HENT: Head: Normocephalic and atraumatic. Right Ear: Tympanic membrane normal. Left Ear: Tympanic membrane normal. Nose: Nose normal. Mouth/Throat: Mouth: Mucous membranes are moist. Pharynx: Oropharynx is clear. Eyes: Conjunctiva/sclera: Conjunctivae normal. Cardiovascular: Rate and Rhythm: Normal rate and regular rhythm. Heart sounds: Normal heart sounds. No murmur heard. Pulmonary: Effort: Pulmonary effort is normal. Breath sounds: Normal breath sounds. No wheezing, rhonchi or rales. Abdominal: General: Bowel sounds are normal. There is no distension. Palpations: Abdomen is soft. There is no hepatomegaly, splenomegaly or mass. Tenderness: There is no abdominal tenderness. Lymphadenopathy: Cervical: No cervical adenopathy. Skin: General: Skin is warm and dry. Neurological: Mental Status: She is alert. Assessment/Plan 1. Diarrhea, unspecified type (R19.7) - Experiencing diarrhea 3-4 times daily, with associated fatigue and headache since Thursday. No fever, cough, or sore throat; reports runny nose and itchy ears. No blood or melena in stools; denies abdominal cramping or vomiting. - Differential diagnosis includes viral gastroenteritis and COVID-19. - Ordered COVID-19 test to rule out viral etiology. - Advised adherence to a bland diet (BRAT: bananas, rice, applesauce, toast) and avoidance of spicy, greasy, or fatty foods, as well as dairy products. - Emphasized importance of maintaining hydration; recommended oral rehydration solutions like Pedialyte or low-sugar Gatorade. - Provided work note for today and tomorrow pending COVID-19 test results. 2. Persistent headaches (R51.9) - Headache persistent since Thursday, unresponsive to Tylenol. - Differential diagnosis includes viral infection and COVID-19. - Ordered COVID-19 test. - Advised continued hydration and rest. 3. Fatigue, unspecified type (R53.83) - Fatigue concurrent with diarrhea and headache; no dyspnea reported. - Differential diagnosis includes viral infection and COVID-19. - Ordered COVID-19 test. - Advised rest and adequate fluid intake. Prescription instructions reviewed with patient as applicable. Potential red flag symptoms discussed with the patient. Reviewed appropriate action plan to take if red flag symptoms occur. Patient agreeable to treatment plan. Milvia Kim, JESSICA.[facility] REGISTERED NURSE ICU Medical Decision Making: Problems: Moderate: Acute illness with systemic symptoms Risk: Low: Low risk from testing/treatment Medical Decision Making Level: 3 - Low Allergies As of Date: 01/19/2025 Noted Allergy Reaction DILAUDID (HYDROMORPHONE) 10/22/2023 16 - Unknown Comments: Had dilaudid during surgery once and it led to respiratory depression and very slow breathing - she had slow/difficult emergence from anesthesia d/t this LATEX 04/17/2014 4 - Hives 7 - Swelling 9 - Itching Comments: Localized PENICILLIN G 04/22/2011 16 - Unknown PENICILLINS 04/17/2011 2 - Rash 9 - Itching 12 - Shortness of Breath 4 - Hives Date Reviewed: 01/19/2025 Reviewed by: Prisca Rollins OCCA - Fully Assessed Reason for Visit: Headache [52] Cmt: With fatigue and diarrhea x 2 days, patient states this may be an irritable bowel flare, has been drinking water and Tylenol without relief of NIELSEN Primary Visit Diagnosis:Diarrhea, unspecified type [R19.7] Other Visit Diagnoses:Persistent headaches [R51.9] Fatigue, unspecified type [R53.83] Order(s):COVID AND INFLUENZA A/B AND RSV PCR, R[facility] Order #: [id number]. #:[id number] Prescriptions as of 01/19/2025 - albuterol HFA (PROAIR HFA) 90 mcg/actuation inhaler Inhale 2 Puffs as instructed every 4 hours as needed. - tamsulosin (FLOMAX) 0.4 mg Take 1 capsule by mouth once daily. - furosemide (LASIX) 20 mg tablet Take 0.5-1 tablets by mouth once daily as needed. for swelling in feet - DULoxetine (CYMBALTA) 30 mg capsule Take 1 capsule by mouth every evening. - DULoxetine (CYMBALTA) 60 mg capsule Take 1 capsule by mouth every morning. - SUMAtriptan (IMITREX) 100 mg tablet Take 1 tablet by mouth as needed for migraine headache (see administration instructions). May repeat dose after 2 hours if needed. Maximum daily dose is 200 mg per day.TAKE 1 TABLET BY MOUTH AT ONSET OF HEADACHE MAY REPEAT IN 2 HOURS IF HEADACHE PERSISTS MAXIMUM DAILY DOSE OF 2 TABLETS ( 200 MILLIGRAMS ) EVERY 24 HOURS - tiZANidine (ZANAFLEX) 2 mg tablet Take 1 tablet by mouth once daily as needed. As directed - topiramate (TOPAMAX) 50 mg tablet Take 1 tablet by mouth every morning AND 2 tablets daily at bedtime. - fluticasone (FLONASE) 50 mcg/actuation nasal spray Use 2 Sprays in each nostril once daily. Rinse mouth after use. - gabapentin (NEURONTIN) 300 mg capsule Take 1 capsule by mouth every morning AND 2 capsules daily at bedtime AND 1 capsule every afternoon. Do all this for 180 days. As directed. - celecoxib (CELEBREX) 200 mg capsule Take 1 capsule by mouth two times a day. for hip and arthritic pain. Take with food - SPIRIVA RESPIMAT 2.5 mcg/actuation inhaler - dicyclomine (BENTYL) 10 mg capsule Take 1 capsule by mouth before meals and at bedtime. - meclizine (ANTIVERT) 25 mg tab 4 TIMES DAILY NEEDED as needed for Dizziness - OXYGEN, HOME THERAPY, 3 L/min by Nasal Cannula route as directed. At night - ARIPiprazole (ABILIFY) 15 mg tablet Take 1 tablet by mouth once daily. Dr. Rodriguez - Nebulizer Accessories kit Provide nebulizer kit. - albuterol (PROVENTIL) 2.5 mg /3 mL (0.083 %) nebulizer solution Use 3 mL via nebulizer four times daily as needed for Wheezing/Shortness of Breath. Inhale by nebulizer over 5-15 minutes - hydrOXYzine pamoate (VISTARIL) 25 mg capsule Take 2 capsules by mouth four times daily as needed. Dr. Rodriguez Meds Comments as of 04/29/2023: April 29, 2023. Patient started new Levaquin Rx today. Disha Tim RN Problem List As Of Date 01/19/2025 Noted Resolved Lumbar radiculopathy [M54.16] 04/17/2011 DDD (degenerative disc disease), cervical [M50.*04/17/2011 DDD (degenerative disc disease), lumbar [M51.36*04/17/2011 Disc displacement, lumbar [M51.26] 04/17/2011 Cervical disc displacement [M50.20] 04/17/2011 Hematuria [R31.9] 11/25/2011 Chronic pelvic pain in female [R10.2, G89.29] 11/25/2011 Urgency of urination [R39.15] 11/25/2011 Frequency of urination [R35.0] 11/25/2011 OAB (overactive bladder) [N32.81] 11/25/2011 Smoking history [Z87.891] 11/25/2011 Asthma [J45.909] Migraine [G43.909] 04/02/2012 MDD (major depressive disorder), recurrent epis*08/05/2012 Alcohol dependence in remission (HCC) [F10.21] 08/05/2012 History of substance abuse (HCC) [F19.11] 08/05/2012 Snoring disorder [R06.83] 12/15/2012 Depression [F32.A] 06/11/2022 Right hip pain [M25.551] 08/04/2014 Thoracic myofascial strain [S29.019A] 01/10/2015 Edema of both legs [R60.0] 05/29/2015 Bilateral foot pain [M79.671, M79.672] 07/13/2015 Osteoarthritis of lumbar spine [M47.816] 08/22/2015 Altered bowel habits [R19.4] 10/28/2017 Class 2 obesity due to excess calories with bod*05/11/2018 Biliary dyskinesia [K82.8] 08/24/2018 Obesity, Class I, BMI 30-34.9 [E66.811] 05/23/2019 06/11/2022 Chronic bilateral low back pain with bilateral *09/01/2019 Class 2 obesity due to excess calories without *05/11/2018 11/30/2019 Pulmonary embolism (HCC) [I26.99] 05/29/2023 Mitral valve prolapse [I34.1] 10/22/2023 Class 3 severe obesity due to excess calories w*11/27/2023 Vitamin D deficiency [E55.9] 12/30/2023 Other instructions from your clinician: - Follow a bland diet (BRAT diet: bananas, rice, applesauce, toast) and avoid spicy, greasy, or fatty foods. - Avoid dairy products to prevent worsening diarrhea. - Stay hydrated by drinking plenty of water; consider using Pedialyte or low-sugar Gatorade for added electrolytes. - Continue taking Dicyclomine as prescribed for diarrhea and/or over the counter Imodium - COVID-19 test will be conducted today; results are expected by tomorrow. - Rest and monitor symptoms; if symptoms worsen or do not improve, seek medical attention. Letter Text Encounter Status:Closed by MILVIA KIM on 01/19/25 JENS Observed: 01/19/2025 12:00 AM Status: COMPLETED Source: [facility] Telephone (INTMWS) YENNY MARSHALL ([id number]) 1960 F Date Time Provider Department 01/19/25 SOTO RUSHING INTMWS During your visit today, we recorded the following information about you: Kelsi TristanJULIUS 01/19/2025 8:36 AM Signed Form rec'd from [facility] for chronic condition release of info form. Pcp signed and this was faxed back to number on the form. Allergies As of Date: 01/19/2025 Noted Allergy Reaction DILAUDID (HYDROMORPHONE) 10/22/2023 16 - Unknown Comments: Had dilaudid during surgery once and it led to respiratory depression and very slow breathing - she had slow/difficult emergence from anesthesia d/t this LATEX 04/17/2014 4 - Hives 7 - Swelling 9 - Itching Comments: Localized PENICILLIN G 04/22/2011 16 - Unknown PENICILLINS 04/17/2011 2 - Rash 9 - Itching 12 - Shortness of Breath 4 - Hives Date Reviewed: 01/04/2025 Reviewed by: Neha Sheppard APRN.[facility] REGISTERED NURSE ICU - Fully Assessed Reason for Visit: Forms [913] Prescriptions as of 01/19/2025 - albuterol HFA (PROAIR HFA) 90 mcg/actuation inhaler Inhale 2 Puffs as instructed every 4 hours as needed. - tamsulosin (FLOMAX) 0.4 mg Take 1 capsule by mouth once daily. - furosemide (LASIX) 20 mg tablet Take 0.5-1 tablets by mouth once daily as needed. for swelling in feet - DULoxetine (CYMBALTA) 30 mg capsule Take 1 capsule by mouth every evening. - DULoxetine (CYMBALTA) 60 mg capsule Take 1 capsule by mouth every morning. - SUMAtriptan (IMITREX) 100 mg tablet Take 1 tablet by mouth as needed for migraine headache (see administration instructions). May repeat dose after 2 hours if needed. Maximum daily dose is 200 mg per day.TAKE 1 TABLET BY MOUTH AT ONSET OF HEADACHE MAY REPEAT IN 2 HOURS IF HEADACHE PERSISTS MAXIMUM DAILY DOSE OF 2 TABLETS ( 200 MILLIGRAMS ) EVERY 24 HOURS - tiZANidine (ZANAFLEX) 2 mg tablet Take 1 tablet by mouth once daily as needed. As directed - topiramate (TOPAMAX) 50 mg tablet Take 1 tablet by mouth every morning AND 2 tablets daily at bedtime. - fluticasone (FLONASE) 50 mcg/actuation nasal spray Use 2 Sprays in each nostril once daily. Rinse mouth after use. - gabapentin (NEURONTIN) 300 mg capsule Take 1 capsule by mouth every morning AND 2 capsules daily at bedtime AND 1 capsule every afternoon. Do all this for 180 days. As directed. - celecoxib (CELEBREX) 200 mg capsule Take 1 capsule by mouth two times a day. for hip and arthritic pain. Take with food - SPIRIVA RESPIMAT 2.5 mcg/actuation inhaler - dicyclomine (BENTYL) 10 mg capsule Take 1 capsule by mouth before meals and at bedtime. - meclizine (ANTIVERT) 25 mg tab 4 TIMES DAILY NEEDED as needed for Dizziness - OXYGEN, HOME THERAPY, 3 L/min by Nasal Cannula route as directed. At night - ARIPiprazole (ABILIFY) 15 mg tablet Take 1 tablet by mouth once daily. Dr. Rodriguez - Nebulizer Accessories kit Provide nebulizer kit. - albuterol (PROVENTIL) 2.5 mg /3 mL (0.083 %) nebulizer solution Use 3 mL via nebulizer four times daily as needed for Wheezing/Shortness of Breath. Inhale by nebulizer over 5-15 minutes - hydrOXYzine pamoate (VISTARIL) 25 mg capsule Take 2 capsules by mouth four times daily as needed. Dr. Rodriguez Meds Comments as of 04/29/2023: April 29, 2023. Patient started new Levaquin Rx today. Disha Tim RN Problem List As Of Date 01/19/2025 Noted Resolved Lumbar radiculopathy [M54.16] 04/17/2011 DDD (degenerative disc disease), cervical [M50.*04/17/2011 DDD (degenerative disc disease), lumbar [M51.36*04/17/2011 Disc displacement, lumbar [M51.26] 04/17/2011 Cervical disc displacement [M50.20] 04/17/2011 Hematuria [R31.9] 11/25/2011 Chronic pelvic pain in female [R10.2, G89.29] 11/25/2011 Urgency of urination [R39.15] 11/25/2011 Frequency of urination [R35.0] 11/25/2011 OAB (overactive bladder) [N32.81] 11/25/2011 Smoking history [Z87.891] 11/25/2011 Asthma [J45.909] Migraine [G43.909] 04/02/2012 MDD (major depressive disorder), recurrent epis*08/05/2012 Alcohol dependence in remission (HCC) [F10.21] 08/05/2012 History of substance abuse (HCC) [F19.11] 08/05/2012 Snoring disorder [R06.83] 12/15/2012 Depression [F32.A] 06/11/2022 Right hip pain [M25.551] 08/04/2014 Thoracic myofascial strain [S29.019A] 01/10/2015 Edema of both legs [R60.0] 05/29/2015 Bilateral foot pain [M79.671, M79.672] 07/13/2015 Osteoarthritis of lumbar spine [M47.816] 08/22/2015 Altered bowel habits [R19.4] 10/28/2017 Class 2 obesity due to excess calories with bod*05/11/2018 Biliary dyskinesia [K82.8] 08/24/2018 Obesity, Class I, BMI 30-34.9 [E66.811] 05/23/2019 06/11/2022 Chronic bilateral low back pain with bilateral *09/01/2019 Class 2 obesity due to excess calories without *05/11/2018 11/30/2019 Pulmonary embolism (HCC) [I26.99] 05/29/2023 Mitral valve prolapse [I34.1] 10/22/2023 Class 3 severe obesity due to excess calories w*11/27/2023 Vitamin D deficiency [E55.9] 12/30/2023 Encounter Status:Closed by KELSI TRISTAN on 01/19/25 PROGRESS Observed: 01/04/2025 3:44 PM Status: COMPLETED Source: [facility] ID: [id number] Author: NEHA SHEPPARD APRN.[facility] NURSE ICU Service: ? Author Type: Nurse Practitioner Type: Progress Notes Filed: 01/04/2025 16:02 Note Text: SUBJECTIVE Yenny Marshall is a 64 year old female here today for acute concern. Chief Complaint Patient presents with: Low Back Pain: lower back/right side Urine culture was normal on 01/02/25 PALLAVI Marshall is a 64 year old female. She is an established patient of Soto Rushing MD. Here today acutely for concerns of right flank/kidney pain. She was seen in the office for this earlier this week. Urine shows hematuria but culture was negative. She has a history of kidney stones and this feels like prior kidney stones. She has had no nausea, vomiting, fever or chills. She has had some decrease in appetite. No diarrhea. Her medications were reviewed today and her list is now up to date. Medications Current Outpatient Medications Medication Sig furosemide (LASIX) 20 mg tablet Take 0.5-1 tablets by mouth once daily as needed. for swelling in feet DULoxetine (CYMBALTA) 30 mg capsule Take 1 capsule by mouth every evening. DULoxetine (CYMBALTA) 60 mg capsule Take 1 capsule by mouth every morning. SUMAtriptan (IMITREX) 100 mg tablet Take 1 tablet by mouth as needed for migraine headache (see administration instructions). May repeat dose after 2 hours if needed. Maximum daily dose is 200 mg per day.TAKE 1 TABLET BY MOUTH AT ONSET OF HEADACHE MAY REPEAT IN 2 HOURS IF HEADACHE PERSISTS MAXIMUM DAILY DOSE OF 2 TABLETS ( 200 MILLIGRAMS ) EVERY 24 HOURS tiZANidine (ZANAFLEX) 2 mg tablet Take 1 tablet by mouth once daily as needed. As directed topiramate (TOPAMAX) 50 mg tablet Take 1 tablet by mouth every morning AND 2 tablets daily at bedtime. fluticasone (FLONASE) 50 mcg/actuation nasal spray Use 2 Sprays in each nostril once daily. Rinse mouth after use. gabapentin (NEURONTIN) 300 mg capsule Take 1 capsule by mouth every morning AND 2 capsules daily at bedtime AND 1 capsule every afternoon. Do all this for 180 days. As directed. celecoxib (CELEBREX) 200 mg capsule Take 1 capsule by mouth two times a day. for hip and arthritic pain. Take with food SPIRIVA RESPIMAT 2.5 mcg/actuation inhaler dicyclomine (BENTYL) 10 mg capsule Take 1 capsule by mouth before meals and at bedtime. meclizine (ANTIVERT) 25 mg tab 4 TIMES DAILY NEEDED as needed for Dizziness ARIPiprazole (ABILIFY) 15 mg tablet Take 1 tablet by mouth once daily. Dr. Rodriguez albuterol (PROVENTIL) 2.5 mg /3 mL (0.083 %) nebulizer solution Use 3 mL via nebulizer four times daily as needed for Wheezing/Shortness of Breath. Inhale by nebulizer over 5-15 minutes hydrOXYzine pamoate (VISTARIL) 25 mg capsule Take 2 capsules by mouth four times daily as needed. Dr. Rodriguez albuterol HFA (PROAIR HFA) 90 mcg/actuation inhaler Inhale 2 Puffs as instructed every 4 hours as needed. tamsulosin (FLOMAX) 0.4 mg Take 1 capsule by mouth once daily. HYDROcodone-acetaminophen (NORCO) 5-325 mg per tablet Take 1 tablet by mouth every 6 hours as needed for pain for up to 5 days. OXYGEN, HOME THERAPY, 3 L/min by Nasal Cannula route as directed. At night Nebulizer Accessories kit Provide nebulizer kit. No current facility-administered medications for this visit. ALLERGIES Allergen Reactions Dilaudid [Hydromorp* Unknown Had dilaudid during surgery once and it led to respiratory depression and very slow breathing - she had slow/difficult emergence from anesthesia d/t this Latex Hives, Swelling, Itching Localized Penicillin G Unknown Penicillins Rash, Itching, Shortness of Breath, Hives ACTIVE PROBLEM LIST Vitamin D Deficiency - 12/30/2023 Class 3 Severe Obesity Due to Excess Calories With Body Mass Index (Bmi) of 40.0 to 44.9 in Adult ([facility]) - 11/27/2023 Mitral Valve Prolapse - 10/22/2023 Pulmonary Embolism ([facility]) - 05/29/2023 Chronic Bilateral Low Back Pain With Bilateral Sciatica - 09/01/2019 Biliary Dyskinesia - 08/24/2018 Comment: Added automatically from request for surgery [id number] Class 2 Obesity Due to Excess Calories With Body Mass Index (Bmi) of 38.0 to 38.9 in Adult - 05/11/2018 Altered Bowel Habits - 10/28/2017 Comment: Added automatically from request for surgery [id number] Osteoarthritis of Lumbar Spine - 08/22/2015 Bilateral Foot Pain - 07/13/2015 Edema of Both Legs - 05/29/2015 Thoracic Myofascial Strain - 01/10/2015 Right Hip Pain - 08/04/2014 Snoring Disorder - 12/15/2012 Mdd (Major Depressive Disorder), Recurrent Episode ([facility]) - 08/05/2012 Comment: Dx made by Dr Rodriguez 06/2012, r/o Bipolar Disorder Alcohol Dependence in Remission ([facility]) - 08/05/2012 Comment: Dx per Dr Rodriguez 06/2012 History of substance abuse ([facility]) - 08/05/2012 Comment: In remission, Dx per Dr Rodriguez 06/2012 Migraine - 04/02/2012 Asthma Hematuria - 11/25/2011 Chronic Pelvic Pain in Female - 11/25/2011 Urgency of Urination - 11/25/2011 Frequency of Urination - 11/25/2011 Oab (Overactive Bladder) - 11/25/2011 Smoking History - 11/25/2011 Lumbar Radiculopathy - 04/17/2011 Ddd (Degenerative Disc Disease), Cervical - 04/17/2011 Ddd (Degenerative Disc Disease), Lumbar - 04/17/2011 Disc Displacement, Lumbar - 04/17/2011 Cervical Disc Displacement - 04/17/2011 Social History Tobacco Use Smoking status: Former Current packs/day: 0.00 Average packs/day: 1 pack/day for 48.8 years (48.8 ttl pk-yrs) Types: Cigarettes Start date: 11/02/1973 Quit date: 08/13/2022 Years since quittin.3 Smokeless tobacco: Never Tobacco comments: Started smoking at age 14, 1ppd. Both parents smokers. Vaping Use Vaping status: Never Used Substance Use Topics Alcohol use: Not Currently Comment: August 27, 2009 quit Drug use: No Comment: past history of cocaine and marijuana- quit 2008 Review of Systems Respiratory: Negative. Cardiovascular: Negative. Genitourinary: Positive for flank pain and urgency. Negative for difficulty urinating. OBJECTIVE BP 116/82 Pulse 89 Wt 223 lb 5.2 oz (101.3kg) SpO2 94% LMP 03/09/2013 Physical Exam Vitals and nursing note reviewed. Constitutional: General: She is awake. She is not in acute distress. Appearance: Normal appearance. She is well-developed and well-groomed. She is not ill-appearing, toxic-appearing or diaphoretic. HENT: Head: Normocephalic. Right Ear: External ear normal. Left Ear: External ear normal. Nose: Nose normal. Eyes: General: Vision grossly intact. Conjunctiva/sclera: Conjunctivae normal. Pupils: Pupils are equal, round, and reactive to light. Neck: Vascular: No JVD. Trachea: Trachea normal. Pulmonary: Effort: Pulmonary effort is normal. No accessory muscle usage, prolonged expiration or respiratory distress. Musculoskeletal: Cervical back: Neck supple. Skin: General: Skin is warm and dry. Capillary Refill: Capillary refill takes less than 2 seconds. Neurological: General: No focal deficit present. Mental Status: She is alert and oriented to person, place, and time. Mental status is at baseline. Psychiatric: Attention and Perception: Attention and perception normal. Mood and Affect: Mood and affect normal. Speech: Speech normal. Behavior: Behavior normal. Behavior is cooperative. Thought Content: Thought content normal. Cognition and Memory: Cognition and memory normal. Judgment: Judgment normal. ASSESSMENT/PLAN: 1. Kidney stone - ICD9: 592.0, ICD10: N20.0 (primary diagnosis) Given her history and symptoms this is suspicious for a kidney stone, she declines imaging and wants to try to treat, if pain persists she agrees to imaging. - TAMSULOSIN 0.4 MG CAPSULE - HYDROCODONE 5 MG-ACETAMINOPHEN 325 MG TABLET 2. Sinobronchitis - ICD9: 473.9, 490, ICD10: J32.9, J40 - ALBUTEROL SULFATE HFA 90 MCG/ACTUATION AEROSOL INHALER 3. Mild asthma with exacerbation, unspecified whether persistent - ICD9: 493.92, ICD10: J45.901 - ALBUTEROL SULFATE HFA 90 MCG/ACTUATION AEROSOL INHALER Portions of this note have been entered by ancillary staff. I have reviewed and when necessary edited, so that they are an adequate record of my encounter with this patient Please note that parts of this document were created using voice recognition software and therefore may contain grammatical errors. Patient verbalizes understanding of instructions from today's visit and in agreement with treatment plan. Questions answered. Agrees to call the office if questions, concerns of issues with acute symptoms not improving or if they worsen. See diagnoses and orders for additional plan(s). Allergies and medications were reviewed, list was updated, and refills given if needed. Past medical, surgical, social, and family history reviewed and updated as appropriate. Encouraged proper diet AND exercise as well as compliance with taking medications. Age-appropriate health preventative measures were discussed. Return if symptoms worsen or fail to improve, for Keep next scheduled appointment.. Neha Sheppard APRN-[facility] Observed: 01/04/2025 3:40 PM Status: COMPLETED Source: [facility] Office Visit ([facility]) YENNY MARSHALL ([id number]) 1960 F Date Time Provider Department 01/04/25 3:40 PM NEHA SHEPPARD IN[facility] During your visit today, we recorded the following information about you: Pulse Blood pressure Weight 89/minute 116/82 101.3 kg Neha Sheppard APRN.[facility]ISTERED NURSE ICU 01/04/2025 4:02 PM Signed SUBJECTIVE Yenny Marshall is a 64 year old female here today for acute concern. Chief Complaint Patient presents with: Low Back Pain: lower back/right side Urine culture was normal on 01/02/25 HPI Yenny Marshall is a 64 year old female. She is an established patient of Soto Rushing MD. Here today acutely for concerns of right flank/kidney pain. She was seen in the office for this earlier this week. Urine shows hematuria but culture was negative. She has a history of kidney stones and this feels like prior kidney stones. She has had no nausea, vomiting, fever or chills. She has had some decrease in appetite. No diarrhea. Her medications were reviewed today and her list is now up to date. Medications Current Outpatient Medications Medication Sig furosemide (LASIX) 20 mg tablet Take 0.5-1 tablets by mouth once daily as needed. for swelling in feet DULoxetine (CYMBALTA) 30 mg capsule Take 1 capsule by mouth every evening. DULoxetine (CYMBALTA) 60 mg capsule Take 1 capsule by mouth every morning. SUMAtriptan (IMITREX) 100 mg tablet Take 1 tablet by mouth as needed for migraine headache (see administration instructions). May repeat dose after 2 hours if needed. Maximum daily dose is 200 mg per day.TAKE 1 TABLET BY MOUTH AT ONSET OF HEADACHE MAY REPEAT IN 2 HOURS IF HEADACHE PERSISTS MAXIMUM DAILY DOSE OF 2 TABLETS ( 200 MILLIGRAMS ) EVERY 24 HOURS tiZANidine (ZANAFLEX) 2 mg tablet Take 1 tablet by mouth once daily as needed. As directed topiramate (TOPAMAX) 50 mg tablet Take 1 tablet by mouth every morning AND 2 tablets daily at bedtime. fluticasone (FLONASE) 50 mcg/actuation nasal spray Use 2 Sprays in each nostril once daily. Rinse mouth after use. gabapentin (NEURONTIN) 300 mg capsule Take 1 capsule by mouth every morning AND 2 capsules daily at bedtime AND 1 capsule every afternoon. Do all this for 180 days. As directed. celecoxib (CELEBREX) 200 mg capsule Take 1 capsule by mouth two times a day. for hip and arthritic pain. Take with food SPIRIVA RESPIMAT 2.5 mcg/actuation inhaler dicyclomine (BENTYL) 10 mg capsule Take 1 capsule by mouth before meals and at bedtime. meclizine (ANTIVERT) 25 mg tab 4 TIMES DAILY NEEDED as needed for Dizziness ARIPiprazole (ABILIFY) 15 mg tablet Take 1 tablet by mouth once daily. Dr. Rodriguez albuterol (PROVENTIL) 2.5 mg /3 mL (0.083 %) nebulizer solution Use 3 mL via nebulizer four times daily as needed for Wheezing/Shortness of Breath. Inhale by nebulizer over 5-15 minutes hydrOXYzine pamoate (VISTARIL) 25 mg capsule Take 2 capsules by mouth four times daily as needed. Dr. Rodriguez albuterol HFA (PROAIR HFA) 90 mcg/actuation inhaler Inhale 2 Puffs as instructed every 4 hours as needed. tamsulosin (FLOMAX) 0.4 mg Take 1 capsule by mouth once daily. HYDROcodone-acetaminophen (NORCO) 5-325 mg per tablet Take 1 tablet by mouth every 6 hours as needed for pain for up to 5 days. OXYGEN, HOME THERAPY, 3 L/min by Nasal Cannula route as directed. At night Nebulizer Accessories kit Provide nebulizer kit. No current facility-administered medications for this visit. ALLERGIES Allergen Reactions Dilaudid [Hydromorp* Unknown Had dilaudid during surgery once and it led to respiratory depression and very slow breathing - she had slow/difficult emergence from anesthesia d/t this Latex Hives, Swelling, Itching Localized Penicillin G Unknown Penicillins Rash, Itching, Shortness of Breath, Hives ACTIVE PROBLEM LIST Vitamin D Deficiency - 12/30/2023 Class 3 Severe Obesity Due to Excess Calories With Body Mass Index (Bmi) of 40.0 to 44.9 in Adult ([facility]) - 11/27/2023 Mitral Valve Prolapse - 10/22/2023 Pulmonary Embolism ([facility]) - 05/29/2023 Chronic Bilateral Low Back Pain With Bilateral Sciatica - 09/01/2019 Biliary Dyskinesia - 08/24/2018 Comment: Added automatically from request for surgery [id number] Class 2 Obesity Due to Excess Calories With Body Mass Index (Bmi) of 38.0 to 38.9 in Adult - 05/11/2018 Altered Bowel Habits - 10/28/2017 Comment: Added automatically from request for surgery [id number] Osteoarthritis of Lumbar Spine - 08/22/2015 Bilateral Foot Pain - 07/13/2015 Edema of Both Legs - 05/29/2015 Thoracic Myofascial Strain - 01/10/2015 Right Hip Pain - 08/04/2014 Snoring Disorder - 12/15/2012 Mdd (Major Depressive Disorder), Recurrent Episode ([facility]) - 08/05/2012 Comment: Dx made by Dr Rodriguez 06/2012, r/o Bipolar Disorder Alcohol Dependence in Remission ([facility]) - 08/05/2012 Comment: Dx per Dr Rodriguez 06/2012 History of substance abuse ([facility]) - 08/05/2012 Comment: In remission, Dx per Dr Rodriguez 06/2012 Migraine - 04/02/2012 Asthma Hematuria - 11/25/2011 Chronic Pelvic Pain in Female - 11/25/2011 Urgency of Urination - 11/25/2011 Frequency of Urination - 11/25/2011 Oab (Overactive Bladder) - 11/25/2011 Smoking History - 11/25/2011 Lumbar Radiculopathy - 04/17/2011 Ddd (Degenerative Disc Disease), Cervical - 04/17/2011 Ddd (Degenerative Disc Disease), Lumbar - 04/17/2011 Disc Displacement, Lumbar - 04/17/2011 Cervical Disc Displacement - 04/17/2011 Social History Tobacco Use Smoking status: Former Current packs/day: 0.00 Average packs/day: 1 pack/day for 48.8 years (48.8 ttl pk-yrs) Types: Cigarettes Start date: 11/02/1973 Quit date: 08/13/2022 Years since quittin.3 Smokeless tobacco: Never Tobacco comments: Started smoking at age 14, 1ppd. Both parents smokers. Vaping Use Vaping status: Never Used Substance Use Topics Alcohol use: Not Currently Comment: August 27, 2009 quit Drug use: No Comment: past history of cocaine and marijuana- quit 2008 Review of Systems Respiratory: Negative. Cardiovascular: Negative. Genitourinary: Positive for flank pain and urgency. Negative for difficulty urinating. OBJECTIVE BP 116/82 Pulse 89 Wt 223 lb 5.2 oz (101.3kg) SpO2 94% LMP 03/09/2013 Physical Exam Vitals and nursing note reviewed. Constitutional: General: She is awake. She is not in acute distress. Appearance: Normal appearance. She is well-developed and well-groomed. She is not ill-appearing, toxic-appearing or diaphoretic. HENT: Head: Normocephalic. Right Ear: External ear normal. Left Ear: External ear normal. Nose: Nose normal. Eyes: General: Vision grossly intact. Conjunctiva/sclera: Conjunctivae normal. Pupils: Pupils are equal, round, and reactive to light. Neck: Vascular: No JVD. Trachea: Trachea normal. Pulmonary: Effort: Pulmonary effort is normal. No accessory muscle usage, prolonged expiration or respiratory distress. Musculoskeletal: Cervical back: Neck supple. Skin: General: Skin is warm and dry. Capillary Refill: Capillary refill takes less than 2 seconds. Neurological: General: No focal deficit present. Mental Status: She is alert and oriented to person, place, and time. Mental status is at baseline. Psychiatric: Attention and Perception: Attention and perception normal. Mood and Affect: Mood and affect normal. Speech: Speech normal. Behavior: Behavior normal. Behavior is cooperative. Thought Content: Thought content normal. Cognition and Memory: Cognition and memory normal. Judgment: Judgment normal. ASSESSMENT/PLAN: 1. Kidney stone - ICD9: 592.0, ICD10: N20.0 (primary diagnosis) Given her history and symptoms this is suspicious for a kidney stone, she declines imaging and wants to try to treat, if pain persists she agrees to imaging. - TAMSULOSIN 0.4 MG CAPSULE - HYDROCODONE 5 MG-ACETAMINOPHEN 325 MG TABLET 2. Sinobronchitis - ICD9: 473.9, 490, ICD10: J32.9, J40 - ALBUTEROL SULFATE HFA 90 MCG/ACTUATION AEROSOL INHALER 3. Mild asthma with exacerbation, unspecified whether persistent - ICD9: 493.92, ICD10: J45.901 - ALBUTEROL SULFATE HFA 90 MCG/ACTUATION AEROSOL INHALER Portions of this note have been entered by ancillary staff. I have reviewed and when necessary edited, so that they are an adequate record of my encounter with this patient Please note that parts of this document were created using voice recognition software and therefore may contain grammatical errors. Patient verbalizes understanding of instructions from today's visit and in agreement with treatment plan. Questions answered. Agrees to call the office if questions, concerns of issues with acute symptoms not improving or if they worsen. See diagnoses and orders for additional plan(s). Allergies and medications were reviewed, list was updated, and refills given if needed. Past medical, surgical, social, and family history reviewed and updated as appropriate. Encouraged proper diet AND exercise as well as compliance with taking medications. Age-appropriate health preventative measures were discussed. Return if symptoms worsen or fail to improve, for Keep next scheduled appointment.. Neha Sheppard APRN-[facility] Allergies As of Date: 01/04/2025 Noted Allergy Reaction DILAUDID (HYDROMORPHONE) 10/22/2023 16 - Unknown Comments: Had dilaudid during surgery once and it led to respiratory depression and very slow breathing - she had slow/difficult emergence from anesthesia d/t this LATEX 04/17/2014 4 - Hives 7 - Swelling 9 - Itching Comments: Localized PENICILLIN G 04/22/2011 16 - Unknown PENICILLINS 04/17/2011 2 - Rash 9 - Itching 12 - Shortness of Breath 4 - Hives Date Reviewed: 01/04/2025 Reviewed by: Neha Sheppard APRN.TANK - Fully Assessed Reason for Visit: Low Back Pain [126] Cmt: lower back/right side Urine culture was normal on 01/02/25 Primary Visit Diagnosis:Kidney stone [N20.0] Other Visit Diagnoses:Sinobronchitis [J32.9, J40] Mild asthma with exacerbation, unspecified whether persistent [J45.901] Order(s):albuterol HFA (PROAIR HFA) 90 mcg/actuation inhalerInhale 2 Puffs as instructed every 4 hours as needed.Disp: 18 gRfl: 0 tamsulosin (FLOMAX) 0.4 mgTake 1 capsule by mouth once daily.Disp: 30 capsuleRfl: 0 HYDROcodone-acetaminophen (NORCO) 5-325 mg per tabletTake 1 tablet by mouth every 6 hours as needed for pain for up to 5 days.Disp: 20 tabletRfl: 0 Prescriptions as of 01/04/2025 - albuterol HFA (PROAIR HFA) 90 mcg/actuation inhaler Inhale 2 Puffs as instructed every 4 hours as needed. - tamsulosin (FLOMAX) 0.4 mg Take 1 capsule by mouth once daily. - HYDROcodone-acetaminophen (NORCO) 5-325 mg per tablet Take 1 tablet by mouth every 6 hours as needed for pain for up to 5 days. - furosemide (LASIX) 20 mg tablet Take 0.5-1 tablets by mouth once daily as needed. for swelling in feet - DULoxetine (CYMBALTA) 30 mg capsule Take 1 capsule by mouth every evening. - DULoxetine (CYMBALTA) 60 mg capsule Take 1 capsule by mouth every morning. - SUMAtriptan (IMITREX) 100 mg tablet Take 1 tablet by mouth as needed for migraine headache (see administration instructions). May repeat dose after 2 hours if needed. Maximum daily dose is 200 mg per day.TAKE 1 TABLET BY MOUTH AT ONSET OF HEADACHE MAY REPEAT IN 2 HOURS IF HEADACHE PERSISTS MAXIMUM DAILY DOSE OF 2 TABLETS ( 200 MILLIGRAMS ) EVERY 24 HOURS - tiZANidine (ZANAFLEX) 2 mg tablet Take 1 tablet by mouth once daily as needed. As directed - topiramate (TOPAMAX) 50 mg tablet Take 1 tablet by mouth every morning AND 2 tablets daily at bedtime. - fluticasone (FLONASE) 50 mcg/actuation nasal spray Use 2 Sprays in each nostril once daily. Rinse mouth after use. - gabapentin (NEURONTIN) 300 mg capsule Take 1 capsule by mouth every morning AND 2 capsules daily at bedtime AND 1 capsule every afternoon. Do all this for 180 days. As directed. - celecoxib (CELEBREX) 200 mg capsule Take 1 capsule by mouth two times a day. for hip and arthritic pain. Take with food - SPIRIVA RESPIMAT 2.5 mcg/actuation inhaler - dicyclomine (BENTYL) 10 mg capsule Take 1 capsule by mouth before meals and at bedtime. - meclizine (ANTIVERT) 25 mg tab 4 TIMES DAILY NEEDED as needed for Dizziness - OXYGEN, HOME THERAPY, 3 L/min by Nasal Cannula route as directed. At night - ARIPiprazole (ABILIFY) 15 mg tablet Take 1 tablet by mouth once daily. Dr. Rodriguez - Nebulizer Accessories kit Provide nebulizer kit. - albuterol (PROVENTIL) 2.5 mg /3 mL (0.083 %) nebulizer solution Use 3 mL via nebulizer four times daily as needed for Wheezing/Shortness of Breath. Inhale by nebulizer over 5-15 minutes - hydrOXYzine pamoate (VISTARIL) 25 mg capsule Take 2 capsules by mouth four times daily as needed. Dr. Rodriguez Meds Comments as of 04/29/2023: April 29, 2023. Patient started new Levaquin Rx today. Disha Tim RN Problem List As Of Date 01/04/2025 Noted Resolved Lumbar radiculopathy [M54.16] 04/17/2011 DDD (degenerative disc disease), cervical [M50.*04/17/2011 DDD (degenerative disc disease), lumbar [M51.36*04/17/2011 Disc displacement, lumbar [M51.26] 04/17/2011 Cervical disc displacement [M50.20] 04/17/2011 Hematuria [R31.9] 11/25/2011 Chronic pelvic pain in female [R10.2, G89.29] 11/25/2011 Urgency of urination [R39.15] 11/25/2011 Frequency of urination [R35.0] 11/25/2011 OAB (overactive bladder) [N32.81] 11/25/2011 Smoking history [Z87.891] 11/25/2011 Asthma [J45.909] Migraine [G43.909] 04/02/2012 MDD (major depressive disorder), recurrent epis*08/05/2012 Alcohol dependence in remission (HCC) [F10.21] 08/05/2012 History of substance abuse (HCC) [F19.11] 08/05/2012 Snoring disorder [R06.83] 12/15/2012 Depression [F32.A] 06/11/2022 Right hip pain [M25.551] 08/04/2014 Thoracic myofascial strain [S29.019A] 01/10/2015 Edema of both legs [R60.0] 05/29/2015 Bilateral foot pain [M79.671, M79.672] 07/13/2015 Osteoarthritis of lumbar spine [M47.816] 08/22/2015 Altered bowel habits [R19.4] 10/28/2017 Class 2 obesity due to excess calories with bod*05/11/2018 Biliary dyskinesia [K82.8] 08/24/2018 Obesity, Class I, BMI 30-34.9 [E66.811] 05/23/2019 06/11/2022 Chronic bilateral low back pain with bilateral *09/01/2019 Class 2 obesity due to excess calories without *05/11/2018 11/30/2019 Pulmonary embolism (HCC) [I26.99] 05/29/2023 Mitral valve prolapse [I34.1] 10/22/2023 Class 3 severe obesity due to excess calories w*11/27/2023 Vitamin D deficiency [E55.9] 12/30/2023 Prescriptions ordered this encounter Disp Refills Start End ALBUTEROL SULFATE HFA 90 MCG/ACTUATI* 18 g 0 01/04/2025 Cmt: Generic or brand: dispense inhaler preferred by patient/insurance unless ANUM flag is selected. Route: INHALATION Sig: Inhale 2 Puffs as instructed every 4 hours as needed. TAMSULOSIN 0.4 MG CAPSULE 30 c* 0 01/04/2025 02/03/2025 Route: ORAL Sig: Take 1 capsule by mouth once daily. HYDROCODONE 5 MG-ACETAMINOPHEN 325 M* 20 t* 0 01/04/2025 01/09/2025 Route: ORAL Sig: Take 1 tablet by mouth every 6 hours as needed for pain for up to 5 days. Medications Discontinued During This Encounter Prescriptions - albuterol HFA (PROAIR HFA) 90 mcg/actuation inhaler (Discontinued) Inhale 2 Puffs as instructed every 4 hours as needed. Disposition: Return if symptoms worsen or fail to improve, for Keep next scheduled appointment.. Follow-up and Disposition History for Encounter Date Provider Department Center 01/04/2025 [id number] SHEPPARDWS [facility] Encounter Status:Closed by NEHA SHEPPARD on 01/04/25 URINALYSIS COMPLETE PNL UR Collected: 01/02/2025 3:00 PM Status: F Source: [facility] Order Comment: Specimen Type : URINE SPECIMEN Ordering Facility: [facility] Address: [address] [place] [address] TYPE CODE TESTS RESULT OUT OF RANGE REFERENCE UNITS [facility]778[facility] Color Ur Yellow Yellow LAB 23427-6(LOINC) Clarity Spec Clear Clear LAB 5792-7(LOINC) Glucose Ur Strip-mCnc Negative Negative LAB 5770-3([facility]) Bilirub Ur Ql Strip Negative Negative LAB 2514-8([facility]) Ketones Ur Strip Negative Negative LAB 5811-5([facility]) Sp Gr Ur Strip 1.019 1.005-1.030 LAB 5794-3([facility]) Hgb Ur Ql Strip Trace Abnormal Negative LAB 5803-2([facility]) pH Ur Strip 7.0 <8.5 LAB 5804-0([facility]) Prot Ur Strip-mCnc Negative Negative LAB 5818-0([facility]) Urobilinogen Ur Strip 0.2 EU/dL 0.2-1.0 EU/dL LAB 5802-4([facility]) Nitrite Ur Ql Strip Negative Negative LAB 5799-2([facility]) Leukocyte esterase Ur Ql Strip Trace Abnormal Negative LAB 5821-4([facility]) WBC #/area UrnS HPF 0-5 /HPF 0-5 /HPF LAB 53119-6([facility]) RBC #/area UrnS HPF 11-20 /HPF Abnormal 0-2 /HPF LAB 5769-5([facility]) Bacteria #/area UrnS HPF Negative Negative /HPF LAB 5787-7([facility]) Epi Cells #/area UrnS HPF None Seen /HPF LAB 5796-8([facility]) Hyaline Casts #/area UrnS LPF 0 /LPF 0 /LPF Performed By: #### 77201-5 # ### [facility] CLIA [id number] [address] [place] [address] [place] [address] [place] B[place]ER[place] UR CULT Observed: 01/02/2025 2:59 PM Status: F Source: [facility] ORGANISM ID: 1 <10,000 CFU/ml Normal urogenital marissa Performed By: #### 630-4 ### # [facility] CLIA [id number] [address] [place] [address] [place] Observed: 01/02/2025 2:15 PM Status: COMPLETED Source: [facility] HNO ID: [id number] Author: SOTO RUSHING MD Service: ? Author Type: Physician Type: Progress Notes Filed: 02/01/2025 12:51 Note Text: This note was created using [employer]. Subjective Yenny Marshall is a 64 year old female. Patient presents with: 6 Month Exam Flank Pain SUBJECTIVE: Yenny Marshall is a 64 year old year old lady here today for 6 month follow up appointment for review of medical conditions. Yenny Marshall is a 64-year-old female with a history of nephrolithiasis and plantar fasciitis, presenting for a 6-month follow-up visit. Yenny reports right-sided flank pain since Thursday, which she describes as similar to previous episodes of nephrolithiasis. The pain radiates to her tailbone and has been severe enough to affect her appetite. She has been taking extra strength Tylenol and drinking cranberry juice and water, but reports no relief. She denies hematuria, fever, chills, nausea, or emesis. She has a history of hematuria, which has been evaluated in the past with cystoscopy, revealing no bladder pathology. She has not seen a urologist since her last episode of nephrolithiasis, which she usually passes spontaneously. Yneny also reports left foot pain secondary to plantar fasciitis, which is exacerbated by walking and not relieved by different types of shoes. She has been performing stretching exercises and using arch support socks, but continues to experience pain. She has not been able to see a termite technician due to insurance issues. Yenny is also working on weight loss and has been making dietary changes, including eating more green leafy vegetables and healthy snacks. She has a history of significant weight loss prior to a knee replacement surgery, but reports regaining some weight postoperatively. She has a gym membership and plans to start exercising regularly once her pain is under control. She is currently taking multiple medications, including Lasix as needed, Abilify, Celebrex, Cymbalta, Flonase, gabapentin, Vistaril, meclizine, Imitrex, tizanidine, and Topamax. She requests refills for Lasix, Imitrex, tizanidine, and Topamax. She is also taking a multivitamin, but reports that it is not helping with her vitamin D levels. She has not been taking a separate vitamin D supplement. PAST MEDICAL HISTORY Diagnosis Date Arrhythmia Asthma Blood dyscrasia Cervical disc displacement 04/17/2011 Chronic obstructive pulmonary disease (COPD) ([facility]) Class 2 obesity due to excess calories without serious comorbidity with body mass index (BMI) of 37.0 to 37.9 in adult 05/11/2018 Degenerative disk disease bulging disks Depression Foot fracture, right 2003 Fell off ladder and fractured right foot H/O ETOH abuse In remission/recovery over 10 years (as of 11/2019) Lactose intolerance Lumbar radiculopathy 04/17/2011 Migraine 04/02/2012 Mitral valve prolapse KALPESH (obstructive sleep apnea) 12/15/2012 KALPESH (obstructive sleep apnea) 12/15/2012 SLEEP ARCHITECTURE: PSG 10/05/2012 The study started at 22:34:01 and ended at 06:39:39. Total sleep time was 405 minutes resulting in a sleep efficiency of 92.2% (TRT = 439 m). There were 14 awakenings with a total time awake after sleep onset of 11.0 minutes. The sleep latency was 23.0 minutes and the REM latency was 308 minutes. Snoring Substance abuse ([facility]) In remission >10 years (as of 11/2019) Current Outpatient Medications Medication Sig fluticasone (FLONASE) 50 mcg/actuation nasal spray Use 2 Sprays in each nostril once daily. Rinse mouth after use. gabapentin (NEURONTIN) 300 mg capsule Take 1 capsule by mouth every morning AND 2 capsules daily at bedtime AND 1 capsule every afternoon. Do all this for 180 days. As directed. clindamycin (CLEOCIN) 300 mg capsule 2 capsules 1 hour prior to dental procedure. celecoxib (CELEBREX) 200 mg capsule Take 1 capsule by mouth two times a day. for hip and arthritic pain. Take with food SPIRIVA RESPIMAT 2.5 mcg/actuation inhaler dicyclomine (BENTYL) 10 mg capsule Take 1 capsule by mouth before meals and at bedtime. tiZANidine (ZANAFLEX) 2 mg tablet Take 1 tablet by mouth every 6 hours as needed. topiramate (TOPAMAX) 50 mg tablet Take 1 tablet by mouth every morning AND 2 tablets daily at bedtime. SUMAtriptan (IMITREX) 100 mg tablet Take 1 tablet (100 mg) by mouth as needed for migraine headache (see administration instructions). May repeat dose after 2 hours if needed. Maximum daily dose is 200 mg per day.TAKE 1 TABLET BY MOUTH AT ONSET OF HEADACHE MAY REPEAT IN 2 HOURS IF HEADACHE PERSISTS MAXIMUM DAILY DOSE OF 2 TABLETS ( 200 MILLIGRAMS ) EVERY 24 HOURS albuterol HFA (PROAIR HFA) 90 mcg/actuation inhaler Inhale 2 Puffs as instructed every 4 hours as needed. meclizine (ANTIVERT) 25 mg tab 4 TIMES DAILY NEEDED as needed for Dizziness furosemide (LASIX) 20 mg tablet Take 0.5-1 tablets by mouth once daily as needed. for swelling in feet OXYGEN, HOME THERAPY, 3 L/min by Nasal Cannula route as directed. At night ARIPiprazole (ABILIFY) 15 mg tablet Take 1 tablet by mouth once daily. Dr. Rodriguez DULoxetine (CYMBALTA) 20 mg capsule Take 20 mg by mouth twice daily. Nebulizer Accessories kit Provide nebulizer kit. albuterol (PROVENTIL) 2.5 mg /3 mL (0.083 %) nebulizer solution Use 3 mL via nebulizer four times daily as needed for Wheezing/Shortness of Breath. Inhale by nebulizer over 5-15 minutes hydrOXYzine pamoate (VISTARIL) 25 mg capsule Take 2 capsules by mouth four times daily as needed. Dr. Rodriguez No current facility-administered medications for this visit. Review of Systems Objective BP 118/70 Pulse 83 Ht 158.1 cm (5' 2.25") Wt 100.5 kg (221 lb 9 oz) LMP 03/09/2013 SpO2 96% BMI 40.20 kg/m? Physical Exam Constitutional: Appearance: Normal appearance. HENT: Head: Normocephalic. Eyes: Conjunctiva/sclera: Conjunctivae normal. Cardiovascular: Rate and Rhythm: Normal rate and regular rhythm. Heart sounds: Normal heart sounds. Pulmonary: Effort: Pulmonary effort is normal. Breath sounds: Normal breath sounds. Skin: General: Skin is warm and dry. Neurological: General: No focal deficit present. Mental Status: She is alert and oriented to person, place, and time. Psychiatric: Mood and Affect: Mood normal. Behavior: Behavior normal. Thought Content: Thought content normal. Judgment: Judgment normal. Latest Ref Rng 10/22/2023 11/28/2023 03/17/2024 12/19/2024 WBC 3.70 - 11.00 k/uL 7.10 11.01 (H) 6.06 6.42 RBC 3.90 - 5.20 m/uL 4.02 3.76 (L) 4.02 4.16 Hemoglobin 11.5 - 15.5 g/dL 12.1 11.3 (L) 12.1 12.6 Hematocrit 36.0 - 46.0 % 37.2 35.2 (L) 38.8 39.6 MCV 80.0 - 100.0 fL 92.5 93.6 96.5 95.2 MCH 26.0 - 34.0 pg 30.1 30.1 30.1 30.3 MCHC 30.5 - 36.0 g/dL 32.5 32.1 31.2 31.8 RDW-CV 11.5 - 15.0 % 13.7 13.5 13.2 12.7 Platelet Count 150 - 400 k/uL 260 221 276 275 MPV 9.0 - 12.7 fL 9.8 9.7 10.1 10.1 Neut% % 58.9 56.9 52.1 Abs Neut (ANC) 1.45 - 7.50 k/uL 4.18 3.46 3.35 Lymph% % 32.4 34.2 40.2 Abs Lymph 1.00 - 4.00 k/uL 2.30 2.07 2.58 Billings% % 5.8 5.0 4.7 Abs Billings <0.87 k/uL 0.41 0.30 0.30 Eosin% % 1.8 2.5 2.0 Abs Eosin <0.46 k/uL 0.13 0.15 0.13 Baso% % 0.8 1.2 0.8 Abs Baso <0.11 k/uL 0.06 0.07 0.05 Immature Gran % % 0.3 0.2 0.2 IMMATURE GRANS (ABS) <0.10 k/uL <0.03 <0.03 <0.03 NRBC /100 WBC 0.0 0.0 0.0 Absolute nRBC <0.01 k/uL <0.01 <0.01 <0.01 <0.01 DTYPE Auto Auto Auto Protein, Total 6.3 - 8.0 g/dL 6.6 6.3 6.5 Albumin 3.9 - 4.9 g/dL 4.1 4.1 3.9 Calcium 8.5 - 10.2 mg/dL 9.2 9.2 9.6 9.1 Bilirubin, Total 0.2 - 1.3 mg/dL 0.3 0.2 0.3 Alkaline Phosphatase 34 - 123 U/L 63 63 64 AST 13 - 35 U/L 22 19 20 ALT 7 - 38 U/L 21 19 15 Glucose 74 - 99 mg/dL 87 115 (H) 113 (H) 98 BUN 7 - 21 mg/dL 19 10 21 14 Creatinine 0.58 - 0.96 mg/dL 0.73 0.64 0.60 0.74 Sodium 136 - 144 mmol/L 141 142 142 142 Potassium 3.7 - 5.1 mmol/L 4.3 4.5 4.3 4.3 Chloride 98 - 107 mmol/L 108 (H) 107 (H) 106 (H) 107 CO2 22 - 30 mmol/L 25 26 25 26 Anion Gap 8 - 15 mmol/L 8 (L) 9 11 9 eGFR >=60 mL/min/1.73m? 93 99 101 90 Iron 41 - 186 ug/dL 55 TIBC 232 - 386 ug/dL 298 Transferrin Saturation 15.0 - 57.0 % 18.5 Hemoglobin A1C 4.3 - 5.6 % 5.2 5.2 Estimated Average Glucose mg/dL 103 103 Ferritin 14.7 - 205.1 ng/mL 77.9 TSH 0.270 - 4.200 mIU/L 0.988 1.910 Vitamin D 25 Hydroxy 31.0 - 80.0 ng/mL 31.6 23.0 (L) Legend: (H) High (L) Low Assessment and Plan # Right flank pain (R10.9) # Lower abdominal pain (R10.30) # History of kidney stones (Z87.442) # Other microscopic hematuria (R31.29) - Differential diagnosis includes nephrolithiasis and urinary tract infection. - Urinalysis shows hematuria, specific gravity 1.020, no nitrites or leukocytes. - Ordered urine culture and microscopic examination to differentiate between hematuria and potential infection. - Advised patient to monitor for severe symptoms such as fever, chills, nausea, or vomiting, which would necessitate emergency evaluation and possible CT imaging. - Encouraged increased fluid intake to facilitate potential passage of kidney stones. # Plantar fasciitis of left foot (M72.2) - Discussed conservative management including stretching exercises, use of arch support socks, and rolling foot over a cold water bottle. - Recommended considering night splints to prevent plantar fascia tightening during sleep. - Advised patient to bring current footwear to podiatry appointment for evaluation. - Patient to follow up with termite technician Dr. Charles for further management and potential orthotic fitting. # Bilateral swelling of feet (M79.89) - Mild edema noted on examination. - Refilled Lasix to be used as needed for fluid management. # Migraine without status migrainosus, not intractable, unspecified migraine type (G43.909) - Refilled Imitrex with 5 refills. - Refilled Topamax, dosage 1 tablet in the morning and 2 tablets at bedtime. # Class 3 severe obesity due to excess calories with body mass index (BMI) of 40.0 to 44.9 in adult, unspecified whether serious comorbidity present (HCC) (E66.813) - Current BMI indicates class 3 obesity. - Discussed dietary modifications including increased intake of green leafy vegetables and healthy snacks. - Patient has [employer] gym membership and plans to increase physical activity. - Follow-up in 6 months to monitor weight and BMI. # Vitamin D deficiency (E55.9) - Recent labs show decreased vitamin D levels. - Recommended supplementation with 1,000 to 2,000 units of vitamin D daily. # IFG (impaired fasting glucose) (R73.01) - Recent A1c is 5.2, indicating good glycemic control. - Continue monitoring blood glucose levels. # Encounter for long-term current use of medication (Z72.89) - Medications reviewed and updated: - Abilify managed by Dr. Suarez. - Celebrex refill due in April. - Cymbalta 60 mg in the morning and 30 mg in the evening, managed by Dr. Garza. - Flonase and Gabapentin recently refilled. - Meclizine has refills available. - Vistaril managed by Dr. Richardson. - Refilled Tizanidine, instructed to take 1/2 tablet at bedtime as needed. - Next follow-up in 6 months. Soto Rushing MD CNOV Observed: 01/02/2025 1:40 PM Status: COMPLETED Source: [facility] Office Visit (INTMWS) YENNY MARSHALL ([id number]) 1960 F Date Time Provider Department 01/02/25 1:40 PM SOTO RUSHING INTMWS During your visit today, we recorded the following information about you: Pulse Blood pressure Weight Height 83/minute 118/70 100.5 kg 1.581 m Soto Rushing MD 02/01/2025 12:51 PM Signed This note was created using [employer]. Subjective Yenny Marshall is a 64 year old female. Patient presents with: 6 Month Exam Flank Pain SUBJECTIVE: Yenny Marshall is a 64 year old year old lady here today for 6 month follow up appointment for review of medical conditions. Yenny Marshall is a 64-year-old female with a history of nephrolithiasis and plantar fasciitis, presenting for a 6-month follow-up visit. Yenny reports right-sided flank pain since Thursday, which she describes as similar to previous episodes of nephrolithiasis. The pain radiates to her tailbone and has been severe enough to affect her appetite. She has been taking extra strength Tylenol and drinking cranberry juice and water, but reports no relief. She denies hematuria, fever, chills, nausea, or emesis. She has a history of hematuria, which has been evaluated in the past with cystoscopy, revealing no bladder pathology. She has not seen a urologist since her last episode of nephrolithiasis, which she usually passes spontaneously. Yenny also reports left foot pain secondary to plantar fasciitis, which is exacerbated by walking and not relieved by different types of shoes. She has been performing stretching exercises and using arch support socks, but continues to experience pain. She has not been able to see a termite technician due to insurance issues. Yenny is also working on weight loss and has been making dietary changes, including eating more green leafy vegetables and healthy snacks. She has a history of significant weight loss prior to a knee replacement surgery, but reports regaining some weight postoperatively. She has a gym membership and plans to start exercising regularly once her pain is under control. She is currently taking multiple medications, including Lasix as needed, Abilify, Celebrex, Cymbalta, Flonase, gabapentin, Vistaril, meclizine, Imitrex, tizanidine, and Topamax. She requests refills for Lasix, Imitrex, tizanidine, and Topamax. She is also taking a multivitamin, but reports that it is not helping with her vitamin D levels. She has not been taking a separate vitamin D supplement. PAST MEDICAL HISTORY Diagnosis Date Arrhythmia Asthma Blood dyscrasia Cervical disc displacement 04/17/2011 Chronic obstructive pulmonary disease (COPD) ([facility]) Class 2 obesity due to excess calories without serious comorbidity with body mass index (BMI) of 37.0 to 37.9 in adult 05/11/2018 Degenerative disk disease bulging disks Depression Foot fracture, right 2003 Fell off ladder and fractured right foot H/O ETOH abuse In remission/recovery over 10 years (as of 11/2019) Lactose intolerance Lumbar radiculopathy 04/17/2011 Migraine 04/02/2012 Mitral valve prolapse KALPESH (obstructive sleep apnea) 12/15/2012 KALPESH (obstructive sleep apnea) 12/15/2012 SLEEP ARCHITECTURE: PSG 10/05/2012 The study started at 22:34:01 and ended at 06:39:39. Total sleep time was 405 minutes resulting in a sleep efficiency of 92.2% (TRT = 439 m). There were 14 awakenings with a total time awake after sleep onset of 11.0 minutes. The sleep latency was 23.0 minutes and the REM latency was 308 minutes. Snoring Substance abuse ([facility]) In remission >10 years (as of 11/2019) Current Outpatient Medications Medication Sig fluticasone (FLONASE) 50 mcg/actuation nasal spray Use 2 Sprays in each nostril once daily. Rinse mouth after use. gabapentin (NEURONTIN) 300 mg capsule Take 1 capsule by mouth every morning AND 2 capsules daily at bedtime AND 1 capsule every afternoon. Do all this for 180 days. As directed. clindamycin (CLEOCIN) 300 mg capsule 2 capsules 1 hour prior to dental procedure. celecoxib (CELEBREX) 200 mg capsule Take 1 capsule by mouth two times a day. for hip and arthritic pain. Take with food SPIRIVA RESPIMAT 2.5 mcg/actuation inhaler dicyclomine (BENTYL) 10 mg capsule Take 1 capsule by mouth before meals and at bedtime. tiZANidine (ZANAFLEX) 2 mg tablet Take 1 tablet by mouth every 6 hours as needed. topiramate (TOPAMAX) 50 mg tablet Take 1 tablet by mouth every morning AND 2 tablets daily at bedtime. SUMAtriptan (IMITREX) 100 mg tablet Take 1 tablet (100 mg) by mouth as needed for migraine headache (see administration instructions). May repeat dose after 2 hours if needed. Maximum daily dose is 200 mg per day.TAKE 1 TABLET BY MOUTH AT ONSET OF HEADACHE MAY REPEAT IN 2 HOURS IF HEADACHE PERSISTS MAXIMUM DAILY DOSE OF 2 TABLETS ( 200 MILLIGRAMS ) EVERY 24 HOURS albuterol HFA (PROAIR HFA) 90 mcg/actuation inhaler Inhale 2 Puffs as instructed every 4 hours as needed. meclizine (ANTIVERT) 25 mg tab 4 TIMES DAILY NEEDED as needed for Dizziness furosemide (LASIX) 20 mg tablet Take 0.5-1 tablets by mouth once daily as needed. for swelling in feet OXYGEN, HOME THERAPY, 3 L/min by Nasal Cannula route as directed. At night ARIPiprazole (ABILIFY) 15 mg tablet Take 1 tablet by mouth once daily. Dr. Rodriguez DULoxetine (CYMBALTA) 20 mg capsule Take 20 mg by mouth twice daily. Nebulizer Accessories kit Provide nebulizer kit. albuterol (PROVENTIL) 2.5 mg /3 mL (0.083 %) nebulizer solution Use 3 mL via nebulizer four times daily as needed for Wheezing/Shortness of Breath. Inhale by nebulizer over 5-15 minutes hydrOXYzine pamoate (VISTARIL) 25 mg capsule Take 2 capsules by mouth four times daily as needed. Dr. Rodriguez No current facility-administered medications for this visit. Review of Systems Objective BP 118/70 Pulse 83 Ht 158.1 cm (5' 2.25") Wt 100.5 kg (221 lb 9 oz) LMP 03/09/2013 SpO2 96% BMI 40.20 kg/m? Physical Exam Constitutional: Appearance: Normal appearance. HENT: Head: Normocephalic. Eyes: Conjunctiva/sclera: Conjunctivae normal. Cardiovascular: Rate and Rhythm: Normal rate and regular rhythm. Heart sounds: Normal heart sounds. Pulmonary: Effort: Pulmonary effort is normal. Breath sounds: Normal breath sounds. Skin: General: Skin is warm and dry. Neurological: General: No focal deficit present. Mental Status: She is alert and oriented to person, place, and time. Psychiatric: Mood and Affect: Mood normal. Behavior: Behavior normal. Thought Content: Thought content normal. Judgment: Judgment normal. Latest Ref Rng 10/22/2023 11/28/2023 03/17/2024 12/19/2024 WBC 3.70 - 11.00 k/uL 7.10 11.01 (H) 6.06 6.42 RBC 3.90 - 5.20 m/uL 4.02 3.76 (L) 4.02 4.16 Hemoglobin 11.5 - 15.5 g/dL 12.1 11.3 (L) 12.1 12.6 Hematocrit 36.0 - 46.0 % 37.2 35.2 (L) 38.8 39.6 MCV 80.0 - 100.0 fL 92.5 93.6 96.5 95.2 MCH 26.0 - 34.0 pg 30.1 30.1 30.1 30.3 MCHC 30.5 - 36.0 g/dL 32.5 32.1 31.2 31.8 RDW-CV 11.5 - 15.0 % 13.7 13.5 13.2 12.7 Platelet Count 150 - 400 k/uL 260 221 276 275 MPV 9.0 - 12.7 fL 9.8 9.7 10.1 10.1 Neut% % 58.9 56.9 52.1 Abs Neut (ANC) 1.45 - 7.50 k/uL 4.18 3.46 3.35 Lymph% % 32.4 34.2 40.2 Abs Lymph 1.00 - 4.00 k/uL 2.30 2.07 2.58 Billings% % 5.8 5.0 4.7 Abs Billings <0.87 k/uL 0.41 0.30 0.30 Eosin% % 1.8 2.5 2.0 Abs Eosin <0.46 k/uL 0.13 0.15 0.13 Baso% % 0.8 1.2 0.8 Abs Baso <0.11 k/uL 0.06 0.07 0.05 Immature Gran % % 0.3 0.2 0.2 IMMATURE GRANS (ABS) <0.10 k/uL <0.03 <0.03 <0.03 NRBC /100 WBC 0.0 0.0 0.0 Absolute nRBC <0.01 k/uL <0.01 <0.01 <0.01 <0.01 DTYPE Auto Auto Auto Protein, Total 6.3 - 8.0 g/dL 6.6 6.3 6.5 Albumin 3.9 - 4.9 g/dL 4.1 4.1 3.9 Calcium 8.5 - 10.2 mg/dL 9.2 9.2 9.6 9.1 Bilirubin, Total 0.2 - 1.3 mg/dL 0.3 0.2 0.3 Alkaline Phosphatase 34 - 123 U/L 63 63 64 AST 13 - 35 U/L 22 19 20 ALT 7 - 38 U/L 21 19 15 Glucose 74 - 99 mg/dL 87 115 (H) 113 (H) 98 BUN 7 - 21 mg/dL 19 10 21 14 Creatinine 0.58 - 0.96 mg/dL 0.73 0.64 0.60 0.74 Sodium 136 - 144 mmol/L 141 142 142 142 Potassium 3.7 - 5.1 mmol/L 4.3 4.5 4.3 4.3 Chloride 98 - 107 mmol/L 108 (H) 107 (H) 106 (H) 107 CO2 22 - 30 mmol/L 25 26 25 26 Anion Gap 8 - 15 mmol/L 8 (L) 9 11 9 eGFR >=60 mL/min/1.73m? 93 99 101 90 Iron 41 - 186 ug/dL 55 TIBC 232 - 386 ug/dL 298 Transferrin Saturation 15.0 - 57.0 % 18.5 Hemoglobin A1C 4.3 - 5.6 % 5.2 5.2 Estimated Average Glucose mg/dL 103 103 Ferritin 14.7 - 205.1 ng/mL 77.9 TSH 0.270 - 4.200 mIU/L 0.988 1.910 Vitamin D 25 Hydroxy 31.0 - 80.0 ng/mL 31.6 23.0 (L) Legend: (H) High (L) Low Assessment and Plan # Right flank pain (R10.9) # Lower abdominal pain (R10.30) # History of kidney stones (Z87.442) # Other microscopic hematuria (R31.29) - Differential diagnosis includes nephrolithiasis and urinary tract infection. - Urinalysis shows hematuria, specific gravity 1.020, no nitrites or leukocytes. - Ordered urine culture and microscopic examination to differentiate between hematuria and potential infection. - Advised patient to monitor for severe symptoms such as fever, chills, nausea, or vomiting, which would necessitate emergency evaluation and possible CT imaging. - Encouraged increased fluid intake to facilitate potential passage of kidney stones. # Plantar fasciitis of left foot (M72.2) - Discussed conservative management including stretching exercises, use of arch support socks, and rolling foot over a cold water bottle. - Recommended considering night splints to prevent plantar fascia tightening during sleep. - Advised patient to bring current footwear to podiatry appointment for evaluation. - Patient to follow up with termite technician Dr. Charles for further management and potential orthotic fitting. # Bilateral swelling of feet (M79.89) - Mild edema noted on examination. - Refilled Lasix to be used as needed for fluid management. # Migraine without status migrainosus, not intractable, unspecified migraine type (G43.909) - Refilled Imitrex with 5 refills. - Refilled Topamax, dosage 1 tablet in the morning and 2 tablets at bedtime. # Class 3 severe obesity due to excess calories with body mass index (BMI) of 40.0 to 44.9 in adult, unspecified whether serious comorbidity present (HCC) (E66.813) - Current BMI indicates class 3 obesity. - Discussed dietary modifications including increased intake of green leafy vegetables and healthy snacks. - Patient has [employer] gym membership and plans to increase physical activity. - Follow-up in 6 months to monitor weight and BMI. # Vitamin D deficiency (E55.9) - Recent labs show decreased vitamin D levels. - Recommended supplementation with 1,000 to 2,000 units of vitamin D daily. # IFG (impaired fasting glucose) (R73.01) - Recent A1c is 5.2, indicating good glycemic control. - Continue monitoring blood glucose levels. # Encounter for long-term current use of medication (Z79.899) - Medications reviewed and updated: - Abilify managed by Dr. Suarez. - Celebrex refill due in April. - Cymbalta 60 mg in the morning and 30 mg in the evening, managed by Dr. Garza. - Flonase and Gabapentin recently refilled. - Meclizine has refills available. - Vistaril managed by Dr. Richardson. - Refilled Tizanidine, instructed to take 1/2 tablet at bedtime as needed. - Next follow-up in 6 months. MD Maribel Pickett Liza D, MD 01/02/2025 2:42 PM Signed - Refill Lasix as needed. - Refill Imitrex for migraines; sent to pharmacy. - Refill Tizanidine for back pain; sent to pharmacy. - Refill Topamax; sent to pharmacy. - Take Vitamin D supplement, 1,000-2,000 units daily. - Continue current medications as prescribed. - Monitor for severe pain, fever, chills, nausea, or vomiting; seek emergency care if these symptoms occur. - Maintain hydration by drinking plenty of water. - Follow a healthy diet with leafy greens and nutritious snacks. - Engage in regular exercise; utilize [employer] membership. - Schedule an appointment with your termite technician for plantar fasciitis management. - Next follow-up appointment in 6 months. Referring Provider: SELF [200] Allergies As of Date: 01/02/2025 Noted Allergy Reaction DILAUDID (HYDROMORPHONE) 10/22/2023 16 - Unknown Comments: Had dilaudid during surgery once and it led to respiratory depression and very slow breathing - she had slow/difficult emergence from anesthesia d/t this LATEX 04/17/2014 4 - Hives 7 - Swelling 9 - Itching Comments: Localized PENICILLIN G 04/22/2011 16 - Unknown PENICILLINS 04/17/2011 2 - Rash 9 - Itching 12 - Shortness of Breath 4 - Hives Date Reviewed: 01/02/2025 Reviewed by: Sonia Mccann MA - Fully Assessed Reason for Visit: 6 Month Exam [189] Flank Pain [356] Primary Visit Diagnosis:Right flank pain [R10.9] Other Visit Diagnoses:History of kidney stones [Z87.442] Plantar fasciitis of left foot [M72.2] Lower abdominal pain [R10.30] Other microscopic hematuria [R31.29] Bilateral swelling of feet [M79.89] Migraine without status migrainosus, not intractable, unspecified migraine type [G43.909] Class 3 severe obesity due to excess calories with body mass index (BMI) of 40.0 to 44.9 in adult, unspecified whether serious comorbidity present (HCC) [E66.813, E66.01, Z68.41] Vitamin D deficiency [E55.9] IFG (impaired fasting glucose) [R73.01] Encounter for long-term current use of medication [Z79.899] Order(s):UA DIP, URINE (POC) [5237578] Order #: [id number]. #:[id number] URINALYSIS, WITH MICROSCOPIC [SQUAWMIC] Order #: [id number] FUTURE BACTERIAL CULTURE, URINE [SQURCUL] Order #: [id number]. #:[id number] furosemide (LASIX) 20 mg tabletTake 0.5-1 tablets by mouth once daily as needed. for swelling in feetDisp: 30 tabletRfl: 2 DULoxetine (CYMBALTA) 30 mg capsuleTake 1 capsule by mouth every evening.Disp: 90 capsuleRfl: DULoxetine (CYMBALTA) 60 mg capsuleTake 1 capsule by mouth every morning.Disp: Rfl: SUMAtriptan (IMITREX) 100 mg tabletTake 1 tablet by mouth as needed for migraine headache (see administration instructions). May repeat dose after 2 hours if needed. Maximum daily dose is 200 mg per day.TAKE 1 TABLET BY MOUTH AT ONSET OF HEADACHE MAY REPEAT IN 2 HOURS IF HEADACHE PERSISTS MAXIMUM DAILY DOSE OF 2 TABLETS ( 200 MILLIGRAMS ) EVERY 24 HOURSDisp: 9 tabletRfl: 5 tiZANidine (ZANAFLEX) 2 mg tabletTake 1 tablet by mouth once daily as needed. As directedDisp: 15 tabletRfl: 1 topiramate (TOPAMAX) 50 mg tabletTake 1 tablet by mouth every morning AND 2 tablets daily at bedtime.Disp: 270 tabletRfl: 1 HEMOGLOBIN A1C [GOUNH5J] Order #: [id number] FUTURE COMPREHENSIVE METABOLIC PANEL [SQCMP] Order #: [id number] FUTURE COMPLETE BLOOD COUNT [SQCBC] Order #: [id number] FUTURE LIPID PANEL BASIC [SQLIPB] Order #: [id number] FUTURE VITAMIN D 25 HYDROXY [SQVITD] Order #: [id number] FUTURE URINALYSIS, WITH MICROSCOPIC [SQUAWMIC] Order #: [id number]. #:[id number] Prescriptions as of 02/01/2025 - albuterol HFA (PROAIR HFA) 90 mcg/actuation inhaler Inhale 2 Puffs as instructed every 4 hours as needed. - tamsulosin (FLOMAX) 0.4 mg Take 1 capsule by mouth once daily. - furosemide (LASIX) 20 mg tablet Take 0.5-1 tablets by mouth once daily as needed. for swelling in feet - DULoxetine (CYMBALTA) 30 mg capsule Take 1 capsule by mouth every evening. - DULoxetine (CYMBALTA) 60 mg capsule Take 1 capsule by mouth every morning. - SUMAtriptan (IMITREX) 100 mg tablet Take 1 tablet by mouth as needed for migraine headache (see administration instructions). May repeat dose after 2 hours if needed. Maximum daily dose is 200 mg per day.TAKE 1 TABLET BY MOUTH AT ONSET OF HEADACHE MAY REPEAT IN 2 HOURS IF HEADACHE PERSISTS MAXIMUM DAILY DOSE OF 2 TABLETS ( 200 MILLIGRAMS ) EVERY 24 HOURS - tiZANidine (ZANAFLEX) 2 mg tablet Take 1 tablet by mouth once daily as needed. As directed - topiramate (TOPAMAX) 50 mg tablet Take 1 tablet by mouth every morning AND 2 tablets daily at bedtime. - fluticasone (FLONASE) 50 mcg/actuation nasal spray Use 2 Sprays in each nostril once daily. Rinse mouth after use. - gabapentin (NEURONTIN) 300 mg capsule Take 1 capsule by mouth every morning AND 2 capsules daily at bedtime AND 1 capsule every afternoon. Do all this for 180 days. As directed. - celecoxib (CELEBREX) 200 mg capsule Take 1 capsule by mouth two times a day. for hip and arthritic pain. Take with food - SPIRIVA RESPIMAT 2.5 mcg/actuation inhaler - dicyclomine (BENTYL) 10 mg capsule Take 1 capsule by mouth before meals and at bedtime. - meclizine (ANTIVERT) 25 mg tab 4 TIMES DAILY NEEDED as needed for Dizziness - OXYGEN, HOME THERAPY, 3 L/min by Nasal Cannula route as directed. At night - ARIPiprazole (ABILIFY) 15 mg tablet Take 1 tablet by mouth once daily. Dr. Rodriguez - Nebulizer Accessories kit Provide nebulizer kit. - albuterol (PROVENTIL) 2.5 mg /3 mL (0.083 %) nebulizer solution Use 3 mL via nebulizer four times daily as needed for Wheezing/Shortness of Breath. Inhale by nebulizer over 5-15 minutes - hydrOXYzine pamoate (VISTARIL) 25 mg capsule Take 2 capsules by mouth four times daily as needed. Dr. Rodriguez Meds Comments as of 04/29/2023: April 29, 2023. Patient started new Levaquin Rx today. Disha Tim RN Problem List As Of Date 01/02/2025 Noted Resolved Lumbar radiculopathy [M54.16] 04/17/2011 DDD (degenerative disc disease), cervical [M50.*04/17/2011 DDD (degenerative disc disease), lumbar [M51.36*04/17/2011 Disc displacement, lumbar [M51.26] 04/17/2011 Cervical disc displacement [M50.20] 04/17/2011 Hematuria [R31.9] 11/25/2011 Chronic pelvic pain in female [R10.2, G89.29] 11/25/2011 Urgency of urination [R39.15] 11/25/2011 Frequency of urination [R35.0] 11/25/2011 OAB (overactive bladder) [N32.81] 11/25/2011 Smoking history [Z87.891] 11/25/2011 Asthma [J45.909] Migraine [G43.909] 04/02/2012 MDD (major depressive disorder), recurrent epis*08/05/2012 Alcohol dependence in remission (HCC) [F10.21] 08/05/2012 History of substance abuse (HCC) [F19.11] 08/05/2012 Snoring disorder [R06.83] 12/15/2012 Depression [F32.A] 06/11/2022 Right hip pain [M25.551] 08/04/2014 Thoracic myofascial strain [S29.019A] 01/10/2015 Edema of both legs [R60.0] 05/29/2015 Bilateral foot pain [M79.671, M79.672] 07/13/2015 Osteoarthritis of lumbar spine [M47.816] 08/22/2015 Altered bowel habits [R19.4] 10/28/2017 Class 2 obesity due to excess calories with bod*05/11/2018 Biliary dyskinesia [K82.8] 08/24/2018 Obesity, Class I, BMI 30-34.9 [E66.811] 05/23/2019 06/11/2022 Chronic bilateral low back pain with bilateral *09/01/2019 Class 2 obesity due to excess calories without *05/11/2018 11/30/2019 Pulmonary embolism (HCC) [I26.99] 05/29/2023 Mitral valve prolapse [I34.1] 10/22/2023 Class 3 severe obesity due to excess calories w*11/27/2023 Vitamin D deficiency [E55.9] 12/30/2023 Other instructions from your clinician: - Refill Lasix as needed. - Refill Imitrex for migraines; sent to pharmacy. - Refill Tizanidine for back pain; sent to pharmacy. - Refill Topamax; sent to pharmacy. - Take Vitamin D supplement, 1,000-2,000 units daily. - Continue current medications as prescribed. - Monitor for severe pain, fever, chills, nausea, or vomiting; seek emergency care if these symptoms occur. - Maintain hydration by drinking plenty of water. - Follow a healthy diet with leafy greens and nutritious snacks. - Engage in regular exercise; utilize [employer] membership. - Schedule an appointment with your termite technician for plantar fasciitis management. - Next follow-up appointment in 6 months. Prescriptions ordered this encounter Disp Refills Start End FUROSEMIDE 20 MG TABLET 30 t* 2 01/02/2025 Route: ORAL Sig: Take 0.5-1 tablets by mouth once daily as needed. for swelling in feet DULOXETINE 30 MG CAPSULE,DELAYED REL* 90 c* 01/02/2025 Class: Med Update Route: ORAL Sig: Take 1 capsule by mouth every evening. DULOXETINE 60 MG CAPSULE,DELAYED REL* 01/02/2025 Class: Med Update Route: ORAL Sig: Take 1 capsule by mouth every morning. SUMATRIPTAN 100 MG TABLET 9 ta* 5 01/02/2025 Route: ORAL Sig: Take 1 tablet by mouth as needed for migraine headache (see administration instructions). May repeat dose after 2 hours if needed. Maximum daily dose is 200 mg per day.TAKE 1 TABLET BY MOUTH AT ONSET OF HEADACHE MAY REPEAT IN 2 HOURS IF HEADACHE PERSISTS MAXIMUM DAILY DOSE OF 2 TABLETS ( 200 MILLIGRAMS ) EVERY 24 HOURS TIZANIDINE 2 MG TABLET 15 t* 1 01/02/2025 Route: ORAL Sig: Take 1 tablet by mouth once daily as needed. As directed TOPIRAMATE 50 MG TABLET 270 * 1 01/02/2025 07/01/2025 Route: ORAL Sig: Take 1 tablet by mouth every morning AND 2 tablets daily at bedtime. Medications Discontinued During This Encounter Prescriptions - budesonide-formoterol (SYMBICORT) 160-4.5 mcg/actuation inhaler (Discontinued) Reported on 09/15/2024 - ondansetron orally disintegrating (ZOFRAN ODT) 4 mg disintegrating tablet (Discontinued) Take 1 tablet by mouth every 6 hours as needed. for nausea - cholestyramine (QUESTRAN) 4 gram packet (Discontinued) Take 1 Packet by mouth two times a day with meals. as needed for diarrhea - furosemide (LASIX) 20 mg tablet (Discontinued) Take 0.5-1 tablets by mouth once daily as needed. for swelling in feet - clindamycin (CLEOCIN) 300 mg capsule (Discontinued) 2 capsules 1 hour prior to dental procedure. - DULoxetine (CYMBALTA) 20 mg capsule (Discontinued) Take 20 mg by mouth twice daily. - SUMAtriptan (IMITREX) 100 mg tablet (Discontinued) Take 1 tablet (100 mg) by mouth as needed for migraine headache (see administration instructions). May repeat dose after 2 hours if needed. Maximum daily dose is 200 mg per day.TAKE 1 TABLET BY MOUTH AT ONSET OF HEADACHE MAY REPEAT IN 2 HOURS IF HEADACHE PERSISTS MAXIMUM DAILY DOSE OF 2 TABLETS ( 200 MILLIGRAMS ) EVERY 24 HOURS - tiZANidine (ZANAFLEX) 2 mg tablet (Discontinued) Take 1 tablet by mouth every 6 hours as needed. - topiramate (TOPAMAX) 50 mg tablet (Discontinued) Take 1 tablet by mouth every morning AND 2 tablets daily at bedtime. Level of Service: OFFICE/OUTPATIENT ESTABLISHED MOD [facility] 30 MIN [45735] Additional E/M codes: VISIT CPLX INHERENT EANDM ASSOC WITH MED * Disposition: Return in about 6 months (around 07/05/2025), or if symptoms worsen or fail to improve, for 6 months follow up, add next 2. Follow-up and Disposition History for Encounter Date Provider Department Center 01/02/2025 [id number] RUSHING INTDOUGLAS [facility]avarria [facility] Encounter Status:Closed by SOTO RUSHING on 02/01/25 CNPN Observed: 12/23/2024 12:00 AM Status: COMPLETED Source: [facility] Telephone (INTMWS) YENNY MARSHALL ([id number]) 1960 F Date Time Provider Department 12/23/24 SOTO RUSHING INTMWS During your visit today, we recorded the following information about you: Michelle Hartman, RN 12/23/2024 4:16 PM Signed Pt reports she had a knee replacement last Nov. Reports she has a dentist appt on Thursday, and needs AB to take one time before dentist visit. Please send to [facility] pharmacy. Reports this is the first time she's had to do this since knee replaced. She tried to get a hold of ortho but couldn't get through. Please phone patient to let her know this has been done. [phone] Soto Rushing MD 12/23/2024 7:14 PM Signed See medication list. Cleocin was already sent 11/30/2024 when patient called and requested on that date. Was sent for 2 pills with 3 refills to [facility]. Are they open on the weekend? See if needs sent elsewhere so can get for Thursday appointment Kristen Hannah LPN 12/24/2024 8:18 AM Signed Phoned patient left message to return call and ask to speak to a nurse. Moriah Anne RN 12/24/2024 11:50 AM Signed Pt called and is notified of providers message and instructions. Pt voices understanding and states they are open. Moriah Anne RN Allergies As of Date: 12/23/2024 Noted Allergy Reaction DILAUDID (HYDROMORPHONE) 10/22/2023 16 - Unknown Comments: Had dilaudid during surgery once and it led to respiratory depression and very slow breathing - she had slow/difficult emergence from anesthesia d/t this LATEX 04/17/2014 4 - Hives 7 - Swelling 9 - Itching Comments: Localized PENICILLIN G 04/22/2011 16 - Unknown PENICILLINS 04/17/2011 2 - Rash 9 - Itching 12 - Shortness of Breath 4 - Hives Date Reviewed: 12/21/2024 Reviewed by: Tiffany Pulido MA - Fully Assessed Reason for Visit: Medication needed for dentist appt [Other] Prescriptions as of 12/24/2024 - fluticasone (FLONASE) 50 mcg/actuation nasal spray Use 2 Sprays in each nostril once daily. Rinse mouth after use. - gabapentin (NEURONTIN) 300 mg capsule Take 1 capsule by mouth every morning AND 2 capsules daily at bedtime AND 1 capsule every afternoon. Do all this for 180 days. As directed. - clindamycin (CLEOCIN) 300 mg capsule 2 capsules 1 hour prior to dental procedure. - celecoxib (CELEBREX) 200 mg capsule Take 1 capsule by mouth two times a day. for hip and arthritic pain. Take with food - cholestyramine (QUESTRAN) 4 gram packet Take 1 Packet by mouth two times a day with meals. as needed for diarrhea - SPIRIVA RESPIMAT 2.5 mcg/actuation inhaler - ondansetron orally disintegrating (ZOFRAN ODT) 4 mg disintegrating tablet Take 1 tablet by mouth every 6 hours as needed. for nausea - dicyclomine (BENTYL) 10 mg capsule Take 1 capsule by mouth before meals and at bedtime. - tiZANidine (ZANAFLEX) 2 mg tablet Take 1 tablet by mouth every 6 hours as needed. - topiramate (TOPAMAX) 50 mg tablet Take 1 tablet by mouth every morning AND 2 tablets daily at bedtime. - SUMAtriptan (IMITREX) 100 mg tablet Take 1 tablet (100 mg) by mouth as needed for migraine headache (see administration instructions). May repeat dose after 2 hours if needed. Maximum daily dose is 200 mg per day.TAKE 1 TABLET BY MOUTH AT ONSET OF HEADACHE MAY REPEAT IN 2 HOURS IF HEADACHE PERSISTS MAXIMUM DAILY DOSE OF 2 TABLETS ( 200 MILLIGRAMS ) EVERY 24 HOURS - albuterol HFA (PROAIR HFA) 90 mcg/actuation inhaler Inhale 2 Puffs as instructed every 4 hours as needed. - meclizine (ANTIVERT) 25 mg tab 4 TIMES DAILY NEEDED as needed for Dizziness - furosemide (LASIX) 20 mg tablet Take 0.5-1 tablets by mouth once daily as needed. for swelling in feet - budesonide-formoterol (SYMBICORT) 160-4.5 mcg/actuation inhaler Inhale 2 Puffs as instructed two times a day. - OXYGEN, HOME THERAPY, 3 L/min by Nasal Cannula route as directed. At night - ARIPiprazole (ABILIFY) 15 mg tablet Take 1 tablet by mouth once daily. Dr. Rodriguez - DULoxetine (CYMBALTA) 20 mg capsule Take 20 mg by mouth twice daily. - Nebulizer Accessories kit Provide nebulizer kit. - albuterol (PROVENTIL) 2.5 mg /3 mL (0.083 %) nebulizer solution Use 3 mL via nebulizer four times daily as needed for Wheezing/Shortness of Breath. Inhale by nebulizer over 5-15 minutes - hydrOXYzine pamoate (VISTARIL) 25 mg capsule Take 2 capsules by mouth four times daily as needed. Dr. Rodriguez [facility] Comments as of 04/29/2023: April 29, 2023. Patient started new Levaquin Rx today. Disha Tim RN Problem List As Of Date 12/23/2024 Noted Resolved Lumbar radiculopathy [M54.16] 04/17/2011 DDD (degenerative disc disease), cervical [M50.*04/17/2011 DDD (degenerative disc disease), lumbar [M51.36*04/17/2011 Disc displacement, lumbar [M51.26] 04/17/2011 Cervical disc displacement [M50.20] 04/17/2011 Hematuria [R31.9] 11/25/2011 Chronic pelvic pain in female [R10.2, G89.29] 11/25/2011 Urgency of urination [R39.15] 11/25/2011 Frequency of urination [R35.0] 11/25/2011 OAB (overactive bladder) [N32.81] 11/25/2011 Smoking history [Z87.891] 11/25/2011 Asthma [J45.909] Migraine [G43.909] 04/02/2012 MDD (major depressive disorder), recurrent epis*08/05/2012 Alcohol dependence in remission (HCC) [F10.21] 08/05/2012 History of substance abuse (HCC) [F19.11] 08/05/2012 Snoring disorder [R06.83] 12/15/2012 Depression [F32.A] 06/11/2022 Right hip pain [M25.551] 08/04/2014 Thoracic myofascial strain [S29.019A] 01/10/2015 Edema of both legs [R60.0] 05/29/2015 Bilateral foot pain [M79.671, M79.672] 07/13/2015 Osteoarthritis of lumbar spine [M47.816] 08/22/2015 Altered bowel habits [R19.4] 10/28/2017 Class 2 obesity due to excess calories with bod*05/11/2018 Biliary dyskinesia [K82.8] 08/24/2018 Obesity, Class I, BMI 30-34.9 [E66.811] 05/23/2019 06/11/2022 Chronic bilateral low back pain with bilateral *09/01/2019 Class 2 obesity due to excess calories without *05/11/2018 11/30/2019 Pulmonary embolism (HCC) [I26.99] 05/29/2023 Mitral valve prolapse [I34.1] 10/22/2023 Class 3 severe obesity due to excess calories w*11/27/2023 Vitamin D deficiency [E55.9] 12/30/2023 Encounter Status:Closed by MORIAH ANNE on 12/24/24 FLUABV+SARS-COV-2+RSV PNL RE SP JEANETTE+PROBE Observed: 12/21/2024 3:56 PM Status: F Source: [facility] SARS-COV-2 (AGENT OF COVID-1 9) RNA: Not detectedINFLUENZA A RNA: Not detectedINFLUENZA B RNA: Not detectedRESPIRATORY SYNCYTIAL VIRUS (RSV) RNA: Not detected Performed By: #### [id number] # ### [facility] CLIA [id number] [address] [place] [address] CNOV Observed: 12/21/2024 12:45 PM Status: COMPLETED Source: [facility] GERARDOMADYSON CHRISTIANSONKELLY Aguilar ([id number]) 1960 F Date Time Provider Department 12/21/24 12:45 PM YAMINI VAZQUEZ [facility] During your visit today, we recorded the following information about you: Temperature Pulse Respiration Blood pressure 97.6 degrees 98/minute 18/minute 110/70 Weight 102.1 kg Yamini Vazquez APRN.[facility] ICU 12/21/2024 1:32 PM Signed This note was created using NoteWriter. Subjective Jimstephania Jeff Nirmaldenaerowdy is a 64 year old female. 64 year old female with PMH asthma, PE (15 years ago ), sleep apnea presents for illness Acute onset yesterday +headache +runny nose +body aches +scratchy throat +sneezing +fatigue Denies CP Denies dyspnea Denies abdominal pain Endorses that she works at [employer] and POSITIVE ill contacts Denies tobacco usage The history is provided by the patient. No speech and language specialist was used. Flu Like Symptoms This is a new problem. The current episode started yesterday. The problem occurs constantly. The problem has been unchanged. Associated symptoms include chills, congestion, coughing, fatigue, headaches, myalgias, nausea and a sore throat. Pertinent negatives include no abdominal pain, anorexia, arthralgias, change in bowel habit, chest pain, diaphoresis, fever, joint swelling, neck pain, numbness, rash, swollen glands, urinary symptoms, vertigo, visual change, vomiting or weakness. Nothing aggravates the symptoms. She has tried nothing for the symptoms. The treatment provided no relief. PAST MEDICAL HISTORY Diagnosis Date Arrhythmia Asthma Blood dyscrasia Cervical disc displacement 04/17/2011 Chronic obstructive pulmonary disease (COPD) ([facility]) Class 2 obesity due to excess calories without serious comorbidity with body mass index (BMI) of 37.0 to 37.9 in adult 05/11/2018 Degenerative disk disease bulging disks Depression Foot fracture, right 2003 Fell off ladder and fractured right foot H/O ETOH abuse In remission/recovery over 10 years (as of 11/2019) Lactose intolerance Lumbar radiculopathy 04/17/2011 Migraine 04/02/2012 Mitral valve prolapse KALPESH (obstructive sleep apnea) 12/15/2012 KALPESH (obstructive sleep apnea) 12/15/2012 SLEEP ARCHITECTURE: PSG 10/05/2012 The study started at 22:34:01 and ended at 06:39:39. Total sleep time was 405 minutes resulting in a sleep efficiency of 92.2% (TRT = 439 m). There were 14 awakenings with a total time awake after sleep onset of 11.0 minutes. The sleep latency was 23.0 minutes and the REM latency was 308 minutes. Snoring Substance abuse ([facility]) In remission >10 years (as of 11/2019) PAST SURGICAL HISTORY Procedure Laterality Date COLONOSCOPY FLX DX W/COLLJ SPEC WHEN PFRMD 11/25/2017 Colonoscopy EXTENSIVE FOOT SURGERY 2002,2004 right foot due to fall from ladder KNEE LEFT OP SURGERY 2004 Growth on left tibia removed, non cancerous LAPAROSCOPY SURG CHOLECYSTECTOMY 09/06/2018 Cholecystectomy, lap NOSE basal cell removal PAST SURGICAL HISTORY OF 12/1982 tubal ligation PAST SURGICAL HISTORY OF 04/03/2013 DANN, BSO, cyctoscopy 04/2013 PAST SURGICAL HISTORY OF 2012 reconstruction of urethra PAST SURGICAL HISTORY OF lumbar injections- Dr Kimball TOOTH EXTRACTION TOTAL KNEE REPLACEMENT Right 11/27/2023 Robotic assisted Right total knee replacement ALLERGIES Dilaudid [Hydromorphone], Latex, Penicillin G, and Penicillins MEDICATIONS fluticasone (FLONASE) 50 mcg/actuation nasal spray Use 2 Sprays in each nostril once daily. Rinse mouth after use. gabapentin (NEURONTIN) 300 mg capsule Take 1 capsule by mouth every morning AND 2 capsules daily at bedtime AND 1 capsule every afternoon. Do all this for 180 days. As directed. clindamycin (CLEOCIN) 300 mg capsule 2 capsules 1 hour prior to dental procedure. celecoxib (CELEBREX) 200 mg capsule Take 1 capsule by mouth two times a day. for hip and arthritic pain. Take with food SPIRIVA RESPIMAT 2.5 mcg/actuation inhaler dicyclomine (BENTYL) 10 mg capsule Take 1 capsule by mouth before meals and at bedtime. tiZANidine (ZANAFLEX) 2 mg tablet Take 1 tablet by mouth every 6 hours as needed. topiramate (TOPAMAX) 50 mg tablet Take 1 tablet by mouth every morning AND 2 tablets daily at bedtime. SUMAtriptan (IMITREX) 100 mg tablet Take 1 tablet (100 mg) by mouth as needed for migraine headache (see administration instructions). May repeat dose after 2 hours if needed. Maximum daily dose is 200 mg per day.TAKE 1 TABLET BY MOUTH AT ONSET OF HEADACHE MAY REPEAT IN 2 HOURS IF HEADACHE PERSISTS MAXIMUM DAILY DOSE OF 2 TABLETS ( 200 MILLIGRAMS ) EVERY 24 HOURS albuterol HFA (PROAIR HFA) 90 mcg/actuation inhaler Inhale 2 Puffs as instructed every 4 hours as needed. meclizine (ANTIVERT) 25 mg tab 4 TIMES DAILY NEEDED as needed for Dizziness furosemide (LASIX) 20 mg tablet Take 0.5-1 tablets by mouth once daily as needed. for swelling in feet OXYGEN, HOME THERAPY, 3 L/min by Nasal Cannula route as directed. At night ARIPiprazole (ABILIFY) 15 mg tablet Take 1 tablet by mouth once daily. Dr. Rodriguez DULoxetine (CYMBALTA) 20 mg capsule Take 20 mg by mouth twice daily. Nebulizer Accessories kit Provide nebulizer kit. albuterol (PROVENTIL) 2.5 mg /3 mL (0.083 %) nebulizer solution Use 3 mL via nebulizer four times daily as needed for Wheezing/Shortness of Breath. Inhale by nebulizer over 5-15 minutes hydrOXYzine pamoate (VISTARIL) 25 mg capsule Take 2 capsules by mouth four times daily as needed. Dr. Rodriguez cholestyramine (QUESTRAN) 4 gram packet Take 1 Packet by mouth two times a day with meals. as needed for diarrhea ondansetron orally disintegrating (ZOFRAN ODT) 4 mg disintegrating tablet Take 1 tablet by mouth every 6 hours as needed. for nausea budesonide-formoterol (SYMBICORT) 160-4.5 mcg/actuation inhaler Inhale 2 Puffs as instructed two times a day. (Patient not taking: Reported on 09/15/2024) FAMILY HISTORY Problem Relation Age of Onset Arthritis Mother COPD Mother Hypertension Father Cancer Maternal Grandfather Lung Cancer Other Lung. Several maternal family members. Anesthesia Problems No Family History Social History Tobacco Use Smoking status: Former Current packs/day: 0.00 Average packs/day: 1 pack/day for 48.8 years (48.8 ttl pk-yrs) Types: Cigarettes Start date: 11/02/1973 Quit date: 08/13/2022 Years since quittin.3 Smokeless tobacco: Never Tobacco comments: Started smoking at age 14, 1ppd. Both parents smokers. Vaping Use Vaping status: Never Used Substance Use Topics Alcohol use: Not Currently Comment: August 27, 2009 quit Drug use: No Comment: past history of cocaine and marijuana- quit 2008 Review of Systems Constitutional: Positive for chills and fatigue. Negative for diaphoresis and fever. HENT: Positive for congestion and sore throat. Eyes: Negative for pain, discharge, redness and itching. Respiratory: Positive for cough. Negative for apnea, choking and chest tightness. Cardiovascular: Negative for chest pain, palpitations and leg swelling. Gastrointestinal: Positive for nausea. Negative for abdominal pain, anorexia, change in bowel habit and vomiting. Musculoskeletal: Positive for myalgias. Negative for arthralgias, joint swelling and neck pain. Skin: Negative for color change, pallor and rash. Allergic/Immunologic: Negative for environmental allergies, food allergies and immunocompromised state. Neurological: Positive for headaches. Negative for dizziness, vertigo, facial asymmetry, weakness and numbness. Hematological: Positive for adenopathy. Does not bruise/bleed easily. Psychiatric/Behavioral: Negative for agitation and behavioral problems. Objective BP 110/70 Pulse 98 Temp 36.4 ?C (97.6 ?F) Resp 18 Wt 102.1 kg (225 lb 1.4 oz) LMP 03/09/2013 SpO2 97% BMI 40.84 kg/m? Physical Exam Vitals and nursing note reviewed. Constitutional: General: She is not in acute distress. Appearance: Normal appearance. She is normal weight. She is not ill-appearing, toxic-appearing or diaphoretic. HENT: Head: Normocephalic and atraumatic. Right Ear: Ear canal and external ear normal. Left Ear: Ear canal and external ear normal. Nose: Rhinorrhea present. No congestion. Mouth/Throat: Mouth: Mucous membranes are moist. Pharynx: No oropharyngeal exudate or posterior oropharyngeal erythema. Eyes: General: Right eye: No discharge. Left eye: No discharge. Extraocular Movements: Extraocular movements intact. Conjunctiva/sclera: Conjunctivae normal. Pupils: Pupils are equal, round, and reactive to light. Cardiovascular: Rate and Rhythm: Normal rate and regular rhythm. Pulses: Normal pulses. Heart sounds: Normal heart sounds. No murmur heard. No friction rub. Pulmonary: Effort: Pulmonary effort is normal. No respiratory distress. Breath sounds: Normal breath sounds. No stridor. No wheezing, rhonchi or rales. Chest: Chest wall: No tenderness. Abdominal: General: Abdomen is flat. There is no distension. Palpations: Abdomen is soft. There is no mass. Tenderness: There is no abdominal tenderness. There is no right CVA tenderness, left CVA tenderness, guarding or rebound. Hernia: No hernia is present. Musculoskeletal: General: No swelling, tenderness, deformity or signs of injury. Normal range of motion. Cervical back: Normal range of motion and neck supple. No rigidity. Right lower leg: No edema. Left lower leg: No edema. Lymphadenopathy: Cervical: Cervical adenopathy present. Skin: General: Skin is warm and dry. Capillary Refill: Capillary refill takes less than 2 seconds. Coloration: Skin is not jaundiced or pale. Findings: No bruising, erythema, lesion or rash. Neurological: General: No focal deficit present. Mental Status: She is alert and oriented to person, place, and time. Cranial Nerves: No cranial nerve deficit. Sensory: No sensory deficit. Motor: No weakness. Coordination: Coordination normal. Gait: Gait normal. Psychiatric: Mood and Affect: Mood normal. Behavior: Behavior normal. Thought Content: Thought content normal. Judgment: Judgment normal. Assessment and Plan ASSESSMENT/PLAN: 1. URI, acute - ICD9: 465.9, ICD10: J06.9 (primary diagnosis) Acute onset yesterday - Discussed viral etiology and rationale for treatment. - Group A strep molecular testing negative - Symptomatic treatment with prn analgesia - Supportive care with fluids and rest - The patient may also use OTC cough and cold meds as needed, warm salt water gargles, throat lozenges and/or OTC throat spray as needed, and nasal saline gtts and suction prn. - Follow up in 3-5 days if symptoms persist or sooner if worsening of symptoms - INFLUENZA AANDB MOLECULAR (POC) - STREP A MOLECULAR (POC) - COVID AND INFLUENZA A/B AND RSV PCR, ROUTINE 2. Exposure to influenza - ICD9: V01.79, ICD10: Z20.828 POC flu here negative COVID/flu obtained and will send out Yamini Vazquez APRN.Yamini Hurtado APRN.CNP 12/21/2024 12:47 PM Signed RESPIRATORY INFECTION GENERAL INFORMATION: An upper respiratory tract infection, or cold, is a viral infection of the airway passages. It can be caused by any one of almost 200 different viruses. Common symptoms include a runny or stuffy nose, sneezing, watery eyes, sore throat, cough, and slight fever. Colds are contagious, especially during the first 3 or 4 days and cannot be cured by antibiotics. They are spread by coughs, sneezes, and direct contact, especially [id number]-wu-[id number]. A respiratory tract infection usually clears up in a few days, but some people may be sick for a week or two. INSTRUCTIONS: 1. Be careful not to blow your nose too hard because this may cause a nosebleed. 2. Use a cool-mist humidifier (vaporizer) to increase air moisture. This will make it easier for you to breathe. Do not use hot steam. 3. Rest as much as possible and get plenty of sleep. 4. Wash your hands often, especially after you blow your nose. Cover your mouth and nose with a tissue when you sneeze or cough. 5. Drink plenty of clear fluids (8 glasses a day) such as water, fruit juice, tea, clear soups, and carbonated beverages. CONTACT YOUR DOCTOR IF : 1. Your fever lasts more than 3 days. 2. You have a sore throat that gets worse or you see white or yellow spots in your throat. 3. Your cough gets worse or lasts more than 10 days. 4. You develop a rash anywhere on your skin. 5. You have an earache or a headache. 6. You have thick greenish or yellowish discharge from your nose. RETURN IMMEDIATELY IF: 1. You cough up thick yellow, green, nagel, or bloody sputum. 2. You have difficulty breathing, pain in your chest, or your skin or nails look nagel or blue. 3. You have shaking chills or a temperature over 102 F (39 C). Allergies As of Date: 12/21/2024 Noted Allergy Reaction DILAUDID (HYDROMORPHONE) 10/22/2023 16 - Unknown Comments: Had dilaudid during surgery once and it led to respiratory depression and very slow breathing - she had slow/difficult emergence from anesthesia d/t this LATEX 04/17/2014 4 - Hives 7 - Swelling 9 - Itching Comments: Localized PENICILLIN G 04/22/2011 16 - Unknown PENICILLINS 04/17/2011 2 - Rash 9 - Itching 12 - Shortness of Breath 4 - Hives Date Reviewed: 12/21/2024 Reviewed by: Tiffany Pulido MA - Fully Assessed Reason for Visit: Nasal Congestion [235] Cmt: drainage, cough and bodyaches x 1 day Primary Visit Diagnosis:URI, acute [J06.9] Other Visit Diagnosis:Exposure to influenza [Z20.828] Order(s):INFLUENZA AANDB MOLECULAR (POC) [6621559] Order #: [id number] FUTURE STREP A MOLECULAR (POC) [5021482] Order #: [id number]. #:[id number] COVID AND INFLUENZA A/B AND RSV PCR, ROUTINE [SQCVFLRS] Order #: [id number]. #:[id number] INFLUENZA AANDB MOLECULAR (POC) [[id number]] Order #: [id number]. #:[id number] Prescriptions as of 12/21/2024 - fluticasone (FLONASE) 50 mcg/actuation nasal spray Use 2 Sprays in each nostril once daily. Rinse mouth after use. - gabapentin (NEURONTIN) 300 mg capsule Take 1 capsule by mouth every morning AND 2 capsules daily at bedtime AND 1 capsule every afternoon. Do all this for 180 days. As directed. - clindamycin (CLEOCIN) 300 mg capsule 2 capsules 1 hour prior to dental procedure. - celecoxib (CELEBREX) 200 mg capsule Take 1 capsule by mouth two times a day. for hip and arthritic pain. Take with food - cholestyramine (QUESTRAN) 4 gram packet Take 1 Packet by mouth two times a day with meals. as needed for diarrhea - SPIRIVA RESPIMAT 2.5 mcg/actuation inhaler - ondansetron orally disintegrating (ZOFRAN ODT) 4 mg disintegrating tablet Take 1 tablet by mouth every 6 hours as needed. for nausea - dicyclomine (BENTYL) 10 mg capsule Take 1 capsule by mouth before meals and at bedtime. - tiZANidine (ZANAFLEX) 2 mg tablet Take 1 tablet by mouth every 6 hours as needed. - topiramate (TOPAMAX) 50 mg tablet Take 1 tablet by mouth every morning AND 2 tablets daily at bedtime. - SUMAtriptan (IMITREX) 100 mg tablet Take 1 tablet (100 mg) by mouth as needed for migraine headache (see administration instructions). May repeat dose after 2 hours if needed. Maximum daily dose is 200 mg per day.TAKE 1 TABLET BY MOUTH AT ONSET OF HEADACHE MAY REPEAT IN 2 HOURS IF HEADACHE PERSISTS MAXIMUM DAILY DOSE OF 2 TABLETS ( 200 MILLIGRAMS ) EVERY 24 HOURS - albuterol HFA (PROAIR HFA) 90 mcg/actuation inhaler Inhale 2 Puffs as instructed every 4 hours as needed. - meclizine (ANTIVERT) 25 mg tab 4 TIMES DAILY NEEDED as needed for Dizziness - furosemide (LASIX) 20 mg tablet Take 0.5-1 tablets by mouth once daily as needed. for swelling in feet - budesonide-formoterol (SYMBICORT) 160-4.5 mcg/actuation inhaler Inhale 2 Puffs as instructed two times a day. - OXYGEN, HOME THERAPY, 3 L/min by Nasal Cannula route as directed. At night - ARIPiprazole (ABILIFY) 15 mg tablet Take 1 tablet by mouth once daily. Dr. Rodriguez - DULoxetine (CYMBALTA) 20 mg capsule Take 20 mg by mouth twice daily. - Nebulizer Accessories kit Provide nebulizer kit. - albuterol (PROVENTIL) 2.5 mg /3 mL (0.083 %) nebulizer solution Use 3 mL via nebulizer four times daily as needed for Wheezing/Shortness of Breath. Inhale by nebulizer over 5-15 minutes - hydrOXYzine pamoate (VISTARIL) 25 mg capsule Take 2 capsules by mouth four times daily as needed. Dr. Rodriguez Meds Comments as of 04/29/2023: April 29, 2023. Patient started new Levaquin Rx today. Disha Tim RN Problem List As Of Date 12/21/2024 Noted Resolved Lumbar radiculopathy [M54.16] 04/17/2011 DDD (degenerative disc disease), cervical [M50.*04/17/2011 DDD (degenerative disc disease), lumbar [M51.36*04/17/2011 Disc displacement, lumbar [M51.26] 04/17/2011 Cervical disc displacement [M50.20] 04/17/2011 Hematuria [R31.9] 11/25/2011 Chronic pelvic pain in female [R10.2, G89.29] 11/25/2011 Urgency of urination [R39.15] 11/25/2011 Frequency of urination [R35.0] 11/25/2011 OAB (overactive bladder) [N32.81] 11/25/2011 Smoking history [Z87.891] 11/25/2011 Asthma [J45.909] Migraine [G43.909] 04/02/2012 MDD (major depressive disorder), recurrent epis*08/05/2012 Alcohol dependence in remission (HCC) [F10.21] 08/05/2012 History of substance abuse (HCC) [F19.11] 08/05/2012 Snoring disorder [R06.83] 12/15/2012 Depression [F32.A] 06/11/2022 Right hip pain [M25.551] 08/04/2014 Thoracic myofascial strain [S29.019A] 01/10/2015 Edema of both legs [R60.0] 05/29/2015 Bilateral foot pain [M79.671, M79.672] 07/13/2015 Osteoarthritis of lumbar spine [M47.816] 08/22/2015 Altered bowel habits [R19.4] 10/28/2017 Class 2 obesity due to excess calories with bod*05/11/2018 Biliary dyskinesia [K82.8] 08/24/2018 Obesity, Class I, BMI 30-34.9 [E66.811] 05/23/2019 06/11/2022 Chronic bilateral low back pain with bilateral *09/01/2019 Class 2 obesity due to excess calories without *05/11/2018 11/30/2019 Pulmonary embolism (HCC) [I26.99] 05/29/2023 Mitral valve prolapse [I34.1] 10/22/2023 Class 3 severe obesity due to excess calories w*11/27/2023 Vitamin D deficiency [E55.9] 12/30/2023 Other instructions from your clinician: RESPIRATORY INFECTION GENERAL INFORMATION: An upper respiratory tract infection, or cold, is a viral infection of the airway passages. It can be caused by any one of almost 200 different viruses. Common symptoms include a runny or stuffy nose, sneezing, watery eyes, sore throat, cough, and slight fever. Colds are contagious, especially during the first 3 or 4 days and cannot be cured by antibiotics. They are spread by coughs, sneezes, and direct contact, especially cerp-jn-xwnu. A respiratory tract infection usually clears up in a few days, but some people may be sick for a week or two. INSTRUCTIONS: 1. Be careful not to blow your nose too hard because this may cause a nosebleed. 2. Use a cool-mist humidifier (vaporizer) to increase air moisture. This will make it easier for you to breathe. Do not use hot steam. 3. Rest as much as possible and get plenty of sleep. 4. Wash your hands often, especially after you blow your nose. Cover your mouth and nose with a tissue when you sneeze or cough. 5. Drink plenty of clear fluids (8 glasses a day) such as water, fruit juice, tea, clear soups, and carbonated beverages. CONTACT YOUR DOCTOR IF : 1. Your fever lasts more than 3 days. 2. You have a sore throat that gets worse or you see white or yellow spots in your throat. 3. Your cough gets worse or lasts more than 10 days. 4. You develop a rash anywhere on your skin. 5. You have an earache or a headache. 6. You have thick greenish or yellowish discharge from your nose. RETURN IMMEDIATELY IF: 1. You cough up thick yellow, green, nagel, or bloody sputum. 2. You have difficulty breathing, pain in your chest, or your skin or nails look nagel or blue. 3. You have shaking chills or a temperature over 102 F (39 C). Letter Text Encounter Status:Closed by YAMINI VAZQUEZ on 12/21/24 PROGRESS Observed: 12/21/2024 12:25 PM Status: COMPLETED Source: [facility] HNO ID: [id number] Author: YAMINI VAZQUEZ APRN.[facility] ICU Service: ? Author Type: Nurse Practitioner Type: Progress Notes Filed: 12/21/2024 13:32 Note Text: This note was created using [employer]. Subjective Yenny Marshall is a 64 year old female. 64 year old female with PMH asthma, PE (15 years ago ), sleep apnea presents for illness Acute onset yesterday +headache +runny nose +body aches +scratchy throat +sneezing +fatigue Denies CP Denies dyspnea Denies abdominal pain Endorses that she works at [employer] and POSITIVE ill contacts Denies tobacco usage The history is provided by the patient. No speech and language specialist was used. Flu Like Symptoms This is a new problem. The current episode started yesterday. The problem occurs constantly. The problem has been unchanged. Associated symptoms include chills, congestion, coughing, fatigue, headaches, myalgias, nausea and a sore throat. Pertinent negatives include no abdominal pain, anorexia, arthralgias, change in bowel habit, chest pain, diaphoresis, fever, joint swelling, neck pain, numbness, rash, swollen glands, urinary symptoms, vertigo, visual change, vomiting or weakness. Nothing aggravates the symptoms. She has tried nothing for the symptoms. The treatment provided no relief. PAST MEDICAL HISTORY Diagnosis Date Arrhythmia Asthma Blood dyscrasia Cervical disc displacement 04/17/2011 Chronic obstructive pulmonary disease (COPD) ([facility]) Class 2 obesity due to excess calories without serious comorbidity with body mass index (BMI) of 37.0 to 37.9 in adult 05/11/2018 Degenerative disk disease bulging disks Depression Foot fracture, right 2003 Fell off ladder and fractured right foot H/O ETOH abuse In remission/recovery over 10 years (as of 11/2019) Lactose intolerance Lumbar radiculopathy 04/17/2011 Migraine 04/02/2012 Mitral valve prolapse KALPESH (obstructive sleep apnea) 12/15/2012 KALPESH (obstructive sleep apnea) 12/15/2012 SLEEP ARCHITECTURE: PSG 10/05/2012 The study started at 22:34:01 and ended at 06:39:39. Total sleep time was 405 minutes resulting in a sleep efficiency of 92.2% (TRT = 439 m). There were 14 awakenings with a total time awake after sleep onset of 11.0 minutes. The sleep latency was 23.0 minutes and the REM latency was 308 minutes. Snoring Substance abuse ([facility]) In remission >10 years (as of 11/2019) PAST SURGICAL HISTORY Procedure Laterality Date COLONOSCOPY FLX DX W/COLLJ SPEC WHEN PFRMD 11/25/2017 Colonoscopy EXTENSIVE FOOT SURGERY 2002,2004 right foot due to fall from ladder KNEE LEFT OP SURGERY 2004 Growth on left tibia removed, non cancerous LAPAROSCOPY SURG CHOLECYSTECTOMY 09/06/2018 Cholecystectomy, lap NOSE basal cell removal PAST SURGICAL HISTORY OF 12/1982 tubal ligation PAST SURGICAL HISTORY OF 04/03/2013 DANN, BSO, cyctoscopy 04/2013 PAST SURGICAL HISTORY OF 2012 reconstruction of urethra PAST SURGICAL HISTORY OF lumbar injections- Dr Kimball TOOTH EXTRACTION TOTAL KNEE REPLACEMENT Right 11/27/2023 Robotic assisted Right total knee replacement ALLERGIES Dilaudid [Hydromorphone], Latex, Penicillin G, and Penicillins MEDICATIONS fluticasone (FLONASE) 50 mcg/actuation nasal spray Use 2 Sprays in each nostril once daily. Rinse mouth after use. gabapentin (NEURONTIN) 300 mg capsule Take 1 capsule by mouth every morning AND 2 capsules daily at bedtime AND 1 capsule every afternoon. Do all this for 180 days. As directed. clindamycin (CLEOCIN) 300 mg capsule 2 capsules 1 hour prior to dental procedure. celecoxib (CELEBREX) 200 mg capsule Take 1 capsule by mouth two times a day. for hip and arthritic pain. Take with food SPIRIVA RESPIMAT 2.5 mcg/actuation inhaler dicyclomine (BENTYL) 10 mg capsule Take 1 capsule by mouth before meals and at bedtime. tiZANidine (ZANAFLEX) 2 mg tablet Take 1 tablet by mouth every 6 hours as needed. topiramate (TOPAMAX) 50 mg tablet Take 1 tablet by mouth every morning AND 2 tablets daily at bedtime. SUMAtriptan (IMITREX) 100 mg tablet Take 1 tablet (100 mg) by mouth as needed for migraine headache (see administration instructions). May repeat dose after 2 hours if needed. Maximum daily dose is 200 mg per day.TAKE 1 TABLET BY MOUTH AT ONSET OF HEADACHE MAY REPEAT IN 2 HOURS IF HEADACHE PERSISTS MAXIMUM DAILY DOSE OF 2 TABLETS ( 200 MILLIGRAMS ) EVERY 24 HOURS albuterol HFA (PROAIR HFA) 90 mcg/actuation inhaler Inhale 2 Puffs as instructed every 4 hours as needed. meclizine (ANTIVERT) 25 mg tab 4 TIMES DAILY NEEDED as needed for Dizziness furosemide (LASIX) 20 mg tablet Take 0.5-1 tablets by mouth once daily as needed. for swelling in feet OXYGEN, HOME THERAPY, 3 L/min by Nasal Cannula route as directed. At night ARIPiprazole (ABILIFY) 15 mg tablet Take 1 tablet by mouth once daily. Dr. Rodriguez DULoxetine (CYMBALTA) 20 mg capsule Take 20 mg by mouth twice daily. Nebulizer Accessories kit Provide nebulizer kit. albuterol (PROVENTIL) 2.5 mg /3 mL (0.083 %) nebulizer solution Use 3 mL via nebulizer four times daily as needed for Wheezing/Shortness of Breath. Inhale by nebulizer over 5-15 minutes hydrOXYzine pamoate (VISTARIL) 25 mg capsule Take 2 capsules by mouth four times daily as needed. Dr. Rodriguez cholestyramine (QUESTRAN) 4 gram packet Take 1 Packet by mouth two times a day with meals. as needed for diarrhea ondansetron orally disintegrating (ZOFRAN ODT) 4 mg disintegrating tablet Take 1 tablet by mouth every 6 hours as needed. for nausea budesonide-formoterol (SYMBICORT) 160-4.5 mcg/actuation inhaler Inhale 2 Puffs as instructed two times a day. (Patient not taking: Reported on 09/15/2024) FAMILY HISTORY Problem Relation Age of Onset Arthritis Mother COPD Mother Hypertension Father Cancer Maternal Grandfather Lung Cancer Other Lung. Several maternal family members. Anesthesia Problems No Family History Social History Tobacco Use Smoking status: Former Current packs/day: 0.00 Average packs/day: 1 pack/day for 48.8 years (48.8 ttl pk-yrs) Types: Cigarettes Start date: 11/02/1973 Quit date: 08/13/2022 Years since quittin.3 Smokeless tobacco: Never Tobacco comments: Started smoking at age 14, 1ppd. Both parents smokers. Vaping Use Vaping status: Never Used Substance Use Topics Alcohol use: Not Currently Comment: August 27, 2009 quit Drug use: No Comment: past history of cocaine and marijuana- quit 2008 Review of Systems Constitutional: Positive for chills and fatigue. Negative for diaphoresis and fever. HENT: Positive for congestion and sore throat. Eyes: Negative for pain, discharge, redness and itching. Respiratory: Positive for cough. Negative for apnea, choking and chest tightness. Cardiovascular: Negative for chest pain, palpitations and leg swelling. Gastrointestinal: Positive for nausea. Negative for abdominal pain, anorexia, change in bowel habit and vomiting. Musculoskeletal: Positive for myalgias. Negative for arthralgias, joint swelling and neck pain. Skin: Negative for color change, pallor and rash. Allergic/Immunologic: Negative for environmental allergies, food allergies and immunocompromised state. Neurological: Positive for headaches. Negative for dizziness, vertigo, facial asymmetry, weakness and numbness. Hematological: Positive for adenopathy. Does not bruise/bleed easily. Psychiatric/Behavioral: Negative for agitation and behavioral problems. Objective BP 110/70 Pulse 98 Temp 36.4 ?C (97.6 ?F) Resp 18 Wt 102.1 kg (225 lb 1.4 oz) LMP 03/09/2013 SpO2 97% BMI 40.84 kg/m? Physical Exam Vitals and nursing note reviewed. Constitutional: General: She is not in acute distress. Appearance: Normal appearance. She is normal weight. She is not ill-appearing, toxic-appearing or diaphoretic. HENT: Head: Normocephalic and atraumatic. Right Ear: Ear canal and external ear normal. Left Ear: Ear canal and external ear normal. Nose: Rhinorrhea present. No congestion. Mouth/Throat: Mouth: Mucous membranes are moist. Pharynx: No oropharyngeal exudate or posterior oropharyngeal erythema. Eyes: General: Right eye: No discharge. Left eye: No discharge. Extraocular Movements: Extraocular movements intact. Conjunctiva/sclera: Conjunctivae normal. Pupils: Pupils are equal, round, and reactive to light. Cardiovascular: Rate and Rhythm: Normal rate and regular rhythm. Pulses: Normal pulses. Heart sounds: Normal heart sounds. No murmur heard. No friction rub. Pulmonary: Effort: Pulmonary effort is normal. No respiratory distress. Breath sounds: Normal breath sounds. No stridor. No wheezing, rhonchi or rales. Chest: Chest wall: No tenderness. Abdominal: General: Abdomen is flat. There is no distension. Palpations: Abdomen is soft. There is no mass. Tenderness: There is no abdominal tenderness. There is no right CVA tenderness, left CVA tenderness, guarding or rebound. Hernia: No hernia is present. Musculoskeletal: General: No swelling, tenderness, deformity or signs of injury. Normal range of motion. Cervical back: Normal range of motion and neck supple. No rigidity. Right lower leg: No edema. Left lower leg: No edema. Lymphadenopathy: Cervical: Cervical adenopathy present. Skin: General: Skin is warm and dry. Capillary Refill: Capillary refill takes less than 2 seconds. Coloration: Skin is not jaundiced or pale. Findings: No bruising, erythema, lesion or rash. Neurological: General: No focal deficit present. Mental Status: She is alert and oriented to person, place, and time. Cranial Nerves: No cranial nerve deficit. Sensory: No sensory deficit. Motor: No weakness. Coordination: Coordination normal. Gait: Gait normal. Psychiatric: Mood and Affect: Mood normal. Behavior: Behavior normal. Thought Content: Thought content normal. Judgment: Judgment normal. Assessment and Plan ASSESSMENT/PLAN: 1. URI, acute - ICD9: 465.9, ICD10: J06.9 (primary diagnosis) Acute onset yesterday - Discussed viral etiology and rationale for treatment. - Group A strep molecular testing negative - Symptomatic treatment with prn analgesia - Supportive care with fluids and rest - The patient may also use OTC cough and cold meds as needed, warm salt water gargles, throat lozenges and/or OTC throat spray as needed, and nasal saline gtts and suction prn. - Follow up in 3-5 days if symptoms persist or sooner if worsening of symptoms - INFLUENZA AANDB MOLECULAR (POC) - STREP A MOLECULAR (POC) - COVID AND INFLUENZA A/B AND RSV PCR, ROUTINE 2. Exposure to influenza - ICD9: V01.79, ICD10: Z20.828 POC flu here negative COVID/flu obtained and will send out Yamini Vazquez APRN.TRAVEL REGISTERED NURSE ICU DEPRECATED HGB A1C BLD Collected: 12/19 11:59 AM Status: F Source: [facility] Comment: Specimen Type : BLOOD SPECIMEN Ordering Facility: [facility] Address: [address] [place] [address] TYPE CODE TESTS RESULT OUT OF RANGE REFERENCE UNITS LAB 4548-4(LOINC) HbA1c MFr Bld 5.2 4.3-5.6 % Result Comment: [place] May[employer] betes Association guidelines indicate that patients with HgbA1c in the range 5.7-6.4% are at increased risk for development of diabetes, and intervention by lifestyle modification may be beneficial. HgbA1c greater or equal to 6.5% is considered diagnostic of diabetes. LAB 00051-3(LOINC) Est. average glucose Bld gHb Est-mCnc 103 mg/dL Result Comment: eAG: (Estima melita average glucose) is a calculated value from HgbA1c and is customer service representative teacher of the average blood glucose level in the last 2-3 month period. Performed By: #### 75789-1 # ### [facility] CLIA [id number] [address] [place] [address] [address] [place] 25(OH)D3 SERPL-MCNC Collected: 12/19/19 11:59 AM Status: F Source: [facility] Order Comment: Specimen Type : BLOOD SPECIMEN Ordering Facility: [facility] Address: [address] [place] [address] TYPE CODE TESTS RESULT OUT OF RANGE REFERENCE UNITS LAB 1988-3(LOINC) 25(OH)D3 SerPl-mCnc 23.0 Low 31.0-80.0 ng/mL Result Comment: Classificati on of 25 OH Vitamin D status: Deficiency/Insufficiency: < or = 30 ng/ml. Sufficiency/Optimal Levels: 31-80 ng/mL Toxicity: > 100 ng/mL. Test performed by chemiluminescent immunoassay. Performed By: #### 1988-12 ## ## [facility] CLIA [id number] [address] [place], [place] [address] CBC W AUTO DIFF BLD Collected: 12/19/2024 11:59 AM S tatus: F Source: [facility] Order Comment: Specimen Type : BLOOD SPECIMEN Ordering Facility: [facility] Address: [address] [place] [address] TYPE CODE TESTS RESULT OUT OF RANGE REFERENCE UNITS LAB 6690-2(INC) WBC # Bld Auto 6.42 3.70-11.00 k/uL LAB 789-8(INC) RBC # Bld Auto 4.16 3.90-5.20 m/ uL LAB 718-7(INC) Hgb Bld-mCnc 12.6 11.5-15.5 g/dL LAB 4544-3(INC) Hct VFr Bld Auto 39.6 36.0-46.0 % LAB 787-2(LOINC) MCV RBC Auto 95.2 80.0-100.0 fL LAB 785-6(LOINC) MCH RBC Qn Auto 30.3 26.0-34.0 p g LAB 786-4(LOINC) MCHC RBC Auto-mCnc 31.8 30.5-36.0 g/dL LAB 36465-7(INC) RDW RBC-Rto 12.7 11.5-15.0 % LAB 777-3(LOINC) Platelet # Bld Auto 275 150-400 k/uL LAB 45368-3(INC) PMV Bld Auto 10.1 9.0-12.7 fL LAB 770-8(LOINC) Neutrophils/leuk NFr Bld Auto 52.1 % LAB 751-8(LOINC) Neutrophils # Bld Auto 3.35 1.45-7.50 k/uL LAB 736-9([facility]) Lymphocytes/leuk NFr Bld Auto 40.2 % LAB 731-0([facility]) Lymphocytes # Bld Auto 2.58 1.00-4.00 k/uL LAB 5905-5([facility]) Monocytes/leuk NFr Bld Auto 4.7 % LAB 742-7([facility]) Monocytes # Bld Auto 0.30 <0.87 k/uL LAB 713-8([facility]) Eosinophil/leuk NFr Bld Auto 2.0 % LAB 711-2([facility]) Eosinophil # Bld Auto 0.13 <0.46 k/uL LAB 706-2([facility]) Basophils/leuk NFr Bld Auto 0.8 % LAB 704-7([facility]) Basophils # Bld Auto 0.05 <0.11 k/uL LAB 69820-7([facility]) Imm Granulocytes/will k NFr Bld Auto 0.2 % LAB 61774-8([facility]) Imm Granulocytes # Bld Auto <0.03 <0.10 k/uL LAB 09181-6([facility]) nRBC/100 WBC Bld-Rto 0.0 /100 WBC LAB 771-6([facility]) nRBC # Bld Auto <0.01 <0.01 k/u L LAB 74077-2([facility]) Differential method Bld Auto Performed By: #### 48862-4 # ### [facility] CLIA [id number] [address] [place] [address] [place] COMP METAB 2000 PNL SERPL Collected: 11:59 AM Status: F Source: [facility] Order Comment: Specimen Type : BLOOD SPECIMEN Ordering Facility: [facility] Address: [address] [place] [address] TYPE CODE TESTS RESULT OUT OF RANGE REFERENCE UNITS LAB 2885-2([facility]) Prot SerPl-mCnc 6.5 6.3-8.0 g/dL LAB 1751-7([facility]) Albumin SerPl-mCnc 3.9 3.9-4.9 g/dL LAB 10882-2([facility]) Calcium SerPl-mCnc 9.1 8.5-10.2 mg/dL LAB 1975-2(LOINC) Bilirub SerPl-mCnc 0.3 0.2-1.3 mg/dL LAB 6768-6(LOINC) ALP SerPl-cCnc 64 34-123 U/L LAB 1920-8(LOINC) AST SerPl-cCnc 20 13-35 U/L LAB 1742-6(LOINC) ALT SerPl-cCnc 15 7-38 U/L LAB 2345-7(LOINC) Glucose SerPl-mCnc 98 74-99 mg/dL Result Comment: The [place] Diabetes Association (ADA) provides guidance for cutoff values for fasting glucose and random glucose. The ADA defines fasting as no caloric intake for at least 8 hours. Fasting plasma glucose results between 100 to 125 mg/dL indicate increased risk for diabetes (prediabetes). Fasting plasma glucose results greater than or equal to 126 mg/dL meet the criteria for diagnosis of diabetes. In the absence of unequivocal hyperglycemia, results should be confirmed by repeat testing. In a patient with classic symptoms of hyperglycemia or hyperglycemic crisis, random plasma glucose results greater than or equal to 200 mg/dL meet the criteria for diagnosis of diabetes. Reference: Standards of Medical Care in Diabetes 2016, [place] Diabetes Association. Diabetes Care. 2016.39(Suppl 1). LAB 3094-0(LOINC) BUN SerPl-mCnc 14 7-21 mg/ dL LAB 2160-0(LOINC) Creat SerPl-mCnc 0.74 0.58-0.96 mg/dL LAB 2951-2(LOINC) Sodium SerPl-sCnc 142 136-144 mmol/L LAB 2823-3(LOINC) Potassium SerPl-sCnc 4.3 3.7-5.1 mmol/L LAB 2075-0(LOINC) Chloride SerPl-sCnc 107 98-107 mmol/L LAB 2028-9(LOINC) CO2 SerPl-sCnc 26 22-30 mmo l/L LAB 47035-4(LOINC) Anion Gap SerPl-sCnc 9 8-15 mmol/L LAB 61111-9(LOINC) Creatinine + eGFR Pnl SerPlBld 90 >=60 mL/min/1 .73m??? Result Comment: Estimated Gl omerular Filtration Rate (eGFR) is calculated using the 2020 CKD-EPI creatinine equation. This equation utilizes serum creatinine, sex, and age as parameters. The creatinine assay has traceable calibration to isotope dilution-mass spectrometry. Refer to KDIGO guidelines for clinical interpretation. In patients with unstable renal function, e.g. those with acute kidney injury, the eGFR may not accurately reflect actual GFR. Performed By: #### 89036-5, 3016-3 #### [facility] CLIA [id number] [address] [place], [place] [id number] [facility] TSH SERPL-ACNC Collected: 11:59 AM Status: F Source: [facility] Order Comment: Specimen Type : BLOOD SPECIMEN Ordering Facility: [facility] Address: [address] [place] [address] TYPE CODE TESTS RESULT OUT OF RANGE REFERENCE UNITS LAB 3016-3(LOINC) TSH SerPl-aCnc 1.910 0.270-4.200 mIU/L Performed By: #### 31004-6, 3016-3 #### [facility] CLIA [id number] [address] [place], [place] [address] [facility] CNPN Observed: 11/30/2024 12:00 AM Status: COMPLETED Source: [facility] Telephone (KATY) YENNY MARSHALL ([id number]) 1960 F Date Time Provider Department 11/30/24 BRADLEY MALONE During your visit today, we recorded the following information about you: Luanne Vergara LPN 11/30/2024 10:15 AM Signed Patient has a dental appointment this afternoon and had forgotten to ask for ATB RX. [facility] Retail pharmacy is preferred. Please contact patient when RX sent or if unable to dispense this morning. JULIUS Jiménez Sondra, PA-C 11/30/2024 12:09 PM Signed Rx was sent to pharmacy as requested. Maddie Chacon MA 11/30/2024 1:02 PM Signed Patient has been notified Rx sent to pharmacy. She verbalized understanding. Allergies As of Date: 11/30/2024 Noted Allergy Reaction DILAUDID (HYDROMORPHONE) 10/22/2023 16 - Unknown Comments: Had dilaudid during surgery once and it led to respiratory depression and very slow breathing - she had slow/difficult emergence from anesthesia d/t this LATEX 04/17/2014 4 - Hives 7 - Swelling 9 - Itching Comments: Localized PENICILLIN G 04/22/2011 16 - Unknown PENICILLINS 04/17/2011 2 - Rash 9 - Itching 12 - Shortness of Breath 4 - Hives Date Reviewed: 09/19/2024 Reviewed by: Adrian López APRN.TERMITE TECHNICIAN - Fully Assessed Reason for Visit: Orders [681] Visit Diagnosis:Status post total right knee replacement [Z96.651] Order(s):clindamycin (CLEOCIN) 300 mg capsule2 capsules 1 hour prior to dental procedure.Disp: 2 capsuleRfl: 3 Prescriptions as of 11/30/2024 - clindamycin (CLEOCIN) 300 mg capsule 2 capsules 1 hour prior to dental procedure. - fluticasone (FLONASE) 50 mcg/actuation nasal spray Use 2 Sprays in each nostril once daily. Rinse mouth after use. - celecoxib (CELEBREX) 200 mg capsule Take 1 capsule by mouth two times a day. for hip and arthritic pain. Take with food - cholestyramine (QUESTRAN) 4 gram packet Take 1 Packet by mouth two times a day with meals. as needed for diarrhea - SPIRIVA RESPIMAT 2.5 mcg/actuation inhaler - ondansetron orally disintegrating (ZOFRAN ODT) 4 mg disintegrating tablet Take 1 tablet by mouth every 6 hours as needed. for nausea - dicyclomine (BENTYL) 10 mg capsule Take 1 capsule by mouth before meals and at bedtime. - tiZANidine (ZANAFLEX) 2 mg tablet Take 1 tablet by mouth every 6 hours as needed. - gabapentin (NEURONTIN) 300 mg capsule Take 1 capsule by mouth every morning AND 2 capsules daily at bedtime AND 1 capsule every afternoon. Do all this for 180 days. As directed. - topiramate (TOPAMAX) 50 mg tablet Take 1 tablet by mouth every morning AND 2 tablets daily at bedtime. - SUMAtriptan (IMITREX) 100 mg tablet Take 1 tablet (100 mg) by mouth as needed for migraine headache (see administration instructions). May repeat dose after 2 hours if needed. Maximum daily dose is 200 mg per day.TAKE 1 TABLET BY MOUTH AT ONSET OF HEADACHE MAY REPEAT IN 2 HOURS IF HEADACHE PERSISTS MAXIMUM DAILY DOSE OF 2 TABLETS ( 200 MILLIGRAMS ) EVERY 24 HOURS - albuterol HFA (PROAIR HFA) 90 mcg/actuation inhaler Inhale 2 Puffs as instructed every 4 hours as needed. - meclizine (ANTIVERT) 25 mg tab 4 TIMES DAILY NEEDED as needed for Dizziness - furosemide (LASIX) 20 mg tablet Take 0.5-1 tablets by mouth once daily as needed. for swelling in feet - budesonide-formoterol (SYMBICORT) 160-4.5 mcg/actuation inhaler Inhale 2 Puffs as instructed two times a day. - OXYGEN, HOME THERAPY, 3 L/min by Nasal Cannula route as directed. At night - ARIPiprazole (ABILIFY) 15 mg tablet Take 1 tablet by mouth once daily. Dr. Rodriguez - DULoxetine (CYMBALTA) 20 mg capsule Take 20 mg by mouth twice daily. - Nebulizer Accessories kit Provide nebulizer kit. - albuterol (PROVENTIL) 2.5 mg /3 mL (0.083 %) nebulizer solution Use 3 mL via nebulizer four times daily as needed for Wheezing/Shortness of Breath. Inhale by nebulizer over 5-15 minutes - hydrOXYzine pamoate (VISTARIL) 25 mg capsule Take 2 capsules by mouth four times daily as needed. Dr. Rodriguez [facility] Comments as of 04/29/2023: April 29, 2023. Patient started new Levaquin Rx today. Disha Tim RN Problem List As Of Date 11/30/2024 Noted Resolved Lumbar radiculopathy [M54.16] 04/17/2011 DDD (degenerative disc disease), cervical [M50.*04/17/2011 DDD (degenerative disc disease), lumbar [M51.36*04/17/2011 Disc displacement, lumbar [M51.26] 04/17/2011 Cervical disc displacement [M50.20] 04/17/2011 Hematuria [R31.9] 11/25/2011 Chronic pelvic pain in female [R10.2, G89.29] 11/25/2011 Urgency of urination [R39.15] 11/25/2011 Frequency of urination [R35.0] 11/25/2011 OAB (overactive bladder) [N32.81] 11/25/2011 Smoking history [Z87.891] 11/25/2011 Asthma [J45.909] Migraine [G43.909] 04/02/2012 MDD (major depressive disorder), recurrent epis*08/05/2012 Alcohol dependence in remission (HCC) [F10.21] 08/05/2012 History of substance abuse (HCC) [F19.11] 08/05/2012 Snoring disorder [R06.83] 12/15/2012 Depression [F32.A] 06/11/2022 Right hip pain [M25.551] 08/04/2014 Thoracic myofascial strain [S29.019A] 01/10/2015 Edema of both legs [R60.0] 05/29/2015 Bilateral foot pain [M79.671, M79.672] 07/13/2015 Osteoarthritis of lumbar spine [M47.816] 08/22/2015 Altered bowel habits [R19.4] 10/28/2017 Class 2 obesity due to excess calories with bod*05/11/2018 Biliary dyskinesia [K82.8] 08/24/2018 Obesity, Class I, BMI 30-34.9 [E66.811] 05/23/2019 06/11/2022 Chronic bilateral low back pain with bilateral *09/01/2019 Class 2 obesity due to excess calories without *05/11/2018 11/30/2019 Pulmonary embolism (HCC) [I26.99] 05/29/2023 Mitral valve prolapse [I34.1] 10/22/2023 Class 3 severe obesity due to excess calories w*11/27/2023 Vitamin D deficiency [E55.9] 12/30/2023 Prescriptions ordered this encounter Disp Refills Start End CLINDAMYCIN HCL 300 MG CAPSULE 2 ca* 3 11/30/2024 Si capsules 1 hour prior to dental procedure. Medications Discontinued During This Encounter Prescriptions - clindamycin (CLEOCIN) 300 mg capsule (Discontinued) 2 capsules 1 hour prior to dental procedure. Encounter Status:Closed by MADDIE CHACON on 11/30/24 LISA SCREENING Observed: 10/03/2024 1:12 PM Status: F Source: [facility] * * *Final Report* * * DATE OF EXAM: Oct 03 2024 1:12PM [facility] 0581 - [facility] SCREENING / PROCEDURE REASON: Encounter for screening mammogram for breast cancer * * * * Physician Interpretation * * * * RESULT: [place] [address] [place] [address] #[id number] - [facility] SCREENING HISTORY: Patient is 64 years old and is seen for screening and is asymptomatic in both breasts. Patient states no personal history of breast cancer. Patient states no personal history of other cancers. COMPARISON STUDIES: The present examination has been compared to prior imaging studies dated 12/04/2020 (ultrasound), 12/04/2020 (mammogram), 03/21/2024 (mammogram), 04/20/2024 (mammogram) and 04/20/2024 (ultrasound). MAMMOGRAM TECHNIQUE: The study was acquired using full field digital technology and interpreted from soft copy. Computer-aided detection was utilized by the radiologist in the interpretation of this examination. MAMMOGRAM FINDINGS: There are scattered areas of fibroglandular density. No suspicious masses, calcifications or other abnormalities are seen in either breast. There are no significant changes from the prior study. IMPRESSION: There are no suspicious mammographic findings in either breast. Routine screening mammogram is recommended. Annual mammogram will be due in 1 year. BI-RADS Category 1: Negative RISK: Based on the Tyrer-Cuzick (TC) risk assessment model, this patient has a 4.3% lifetime risk of developing breast cancer, meaning they are at average risk for developing breast cancer. However, this is only an estimate based on available history provided on the patient's questionnaire. We encourage all patients to talk with their providers about these results, further recommendations for managing breast health, and appropriate supplemental screening options if the patient has dense breast tissue. Interpreting Radiologist: Lynsey Sanchez M.D. Electronically signed on: 10/04/2024 Apparatus Cleaner: RYDER Transcribe Date/Time: Oct 03 2024 1:00P Dictated by: LYNSEY SANCHEZ MD This examination was interpreted and the report reviewed and electronically signed by: LYNSEY SANCHEZ MD on Oct 04 2024 9:16PM EST [id number] PROGRESS Observed: 10/03/2024 1:10 PM Status: COMPLETED Source: [facility] ID: [id number] Author: KERRY PALOMINO Mammo Tech Service: ? Author Type: Trench Shovel Operator Type: Progress Notes Filed: 10/03/2024 13:28 Note Text: Radiology Service Progress Note PATIENT NAME: Yenny Marshall DATE OF SERVICE: October 03, 2024 TIME: 1:28 PM PATIENT IDENTITY VERIFICATION COMPLETED USING TWO (2) IDENTIFIERS: Name and Date of confirmed by patient verbally. FALL SCREENING: Has the patient had 2 falls in the last year or 1 fall with injury or currently using an Ambulatory Assistive Device (Walker, Cane, Wheelchair, Crutches, etc.)? No PATIENT GENDER DATA: Female. status: : No status: NO. PATIENT RELEVANT IMPLANT DATA REVIEWED: Not Applicable PATIENT PRESENTS WITH AN IMPLANTABLE OR ATTACHED CLUB STEWARD: No RADIOLOGY DEPARTMENT: Mammography PERIPHERAL IV DATA: Not applicable SIGNED BY: Kerry Palomino TwitChat Mansi October 03, 2024 1:28 PM CNPN Observed: 10/03/2024 12:00 AM Status: COMPLETED Source: [facility] Telephone (INTMWS) YENNY MARSHALL ([id number]) 1960 F Date Time Provider Department 10/03/24 SOTO RUSHING INTMWS During your visit today, we recorded the following information about you: Moriah Anne RN 10/03/2024 2:58 PM Signed Pt called in and reports she needs her order for gastro faxed over to [facility]. Faxed order, demographics, last office visit note, and labs to fax # [phone]. Allergies As of Date: 10/03/2024 Noted Allergy Reaction DILAUDID (HYDROMORPHONE) 10/22/2023 16 - Unknown Comments: Had dilaudid during surgery once and it led to respiratory depression and very slow breathing - she had slow/difficult emergence from anesthesia d/t this LATEX 04/17/2014 4 - Hives 7 - Swelling 9 - Itching Comments: Localized PENICILLIN G 04/22/2011 16 - Unknown PENICILLINS 04/17/2011 2 - Rash 9 - Itching 12 - Shortness of Breath 4 - Hives Date Reviewed: 09/19/2024 Reviewed by: Adrian López APRN.TERMITE TECHNICIAN - Fully Assessed Reason for Visit: Orders [681] Prescriptions as of 10/03/2024 - cholestyramine (QUESTRAN) 4 gram packet Take 1 Packet by mouth two times a day with meals. as needed for diarrhea - SPIRIVA RESPIMAT 2.5 mcg/actuation inhaler - ondansetron orally disintegrating (ZOFRAN ODT) 4 mg disintegrating tablet Take 1 tablet by mouth every 6 hours as needed. for nausea - dicyclomine (BENTYL) 10 mg capsule Take 1 capsule by mouth before meals and at bedtime. - tiZANidine (ZANAFLEX) 2 mg tablet Take 1 tablet by mouth every 6 hours as needed. - clindamycin (CLEOCIN) 300 mg capsule 2 capsules 1 hour prior to dental procedure. - gabapentin (NEURONTIN) 300 mg capsule Take 1 capsule by mouth every morning AND 2 capsules daily at bedtime AND 1 capsule every afternoon. Do all this for 180 days. As directed. - topiramate (TOPAMAX) 50 mg tablet Take 1 tablet by mouth every morning AND 2 tablets daily at bedtime. - SUMAtriptan (IMITREX) 100 mg tablet Take 1 tablet (100 mg) by mouth as needed for migraine headache (see administration instructions). May repeat dose after 2 hours if needed. Maximum daily dose is 200 mg per day.TAKE 1 TABLET BY MOUTH AT ONSET OF HEADACHE MAY REPEAT IN 2 HOURS IF HEADACHE PERSISTS MAXIMUM DAILY DOSE OF 2 TABLETS ( 200 MILLIGRAMS ) EVERY 24 HOURS - fluticasone (FLONASE) 50 mcg/actuation nasal spray Use 2 Sprays in each nostril once daily. Rinse mouth after use. - albuterol HFA (PROAIR HFA) 90 mcg/actuation inhaler Inhale 2 Puffs as instructed every 4 hours as needed. - celecoxib (CELEBREX) 200 mg capsule Take 1 capsule by mouth two times a day. for hip and arthritic pain. Take with food - meclizine (ANTIVERT) 25 mg tab 4 TIMES DAILY NEEDED as needed for Dizziness - furosemide (LASIX) 20 mg tablet Take 0.5-1 tablets by mouth once daily as needed. for swelling in feet - budesonide-formoterol (SYMBICORT) 160-4.5 mcg/actuation inhaler Inhale 2 Puffs as instructed two times a day. - OXYGEN, HOME THERAPY, 3 L/min by Nasal Cannula route as directed. At night - ARIPiprazole (ABILIFY) 15 mg tablet Take 1 tablet by mouth once daily. Dr. Rodriguez - DULoxetine (CYMBALTA) 20 mg capsule Take 20 mg by mouth twice daily. - Nebulizer Accessories kit Provide nebulizer kit. - albuterol (PROVENTIL) 2.5 mg /3 mL (0.083 %) nebulizer solution Use 3 mL via nebulizer four times daily as needed for Wheezing/Shortness of Breath. Inhale by nebulizer over 5-15 minutes - hydrOXYzine pamoate (VISTARIL) 25 mg capsule Take 2 capsules by mouth four times daily as needed. Dr. Rodriguez [facility] Comments as of 04/29/2023: April 29, 2023. Patient started new Levaquin Rx today. Disha Tim RN Problem List As Of Date 10/03/2024 Noted Resolved Lumbar radiculopathy [M54.16] 04/17/2011 DDD (degenerative disc disease), cervical [M50.*04/17/2011 DDD (degenerative disc disease), lumbar [M51.36*04/17/2011 Disc displacement, lumbar [M51.26] 04/17/2011 Cervical disc displacement [M50.20] 04/17/2011 Hematuria [R31.9] 11/25/2011 Chronic pelvic pain in female [R10.2, G89.29] 11/25/2011 Urgency of urination [R39.15] 11/25/2011 Frequency of urination [R35.0] 11/25/2011 OAB (overactive bladder) [N32.81] 11/25/2011 Smoking history [Z87.891] 11/25/2011 Asthma [J45.909] Migraine [G43.909] 04/02/2012 MDD (major depressive disorder), recurrent epis*08/05/2012 Alcohol dependence in remission (HCC) [F10.21] 08/05/2012 History of substance abuse (HCC) [F19.11] 08/05/2012 Snoring disorder [R06.83] 12/15/2012 Depression [F32.A] 06/11/2022 Right hip pain [M25.551] 08/04/2014 Thoracic myofascial strain [S29.019A] 01/10/2015 Edema of both legs [R60.0] 05/29/2015 Bilateral foot pain [M79.671, M79.672] 07/13/2015 Osteoarthritis of lumbar spine [M47.816] 08/22/2015 Altered bowel habits [R19.4] 10/28/2017 Class 2 obesity due to excess calories with bod*05/11/2018 Biliary dyskinesia [K82.8] 08/24/2018 Obesity, Class I, BMI 30-34.9 [E66.811] 05/23/2019 06/11/2022 Chronic bilateral low back pain with bilateral *09/01/2019 Class 2 obesity due to excess calories without *05/11/2018 11/30/2019 Pulmonary embolism (HCC) [I26.99] 05/29/2023 Mitral valve prolapse [I34.1] 10/22/2023 Class 3 severe obesity due to excess calories w*11/27/2023 Vitamin D deficiency [E55.9] 12/30/2023 Encounter Status:Closed by MORIAH ANNE on 10/03/24 PROGRESS Observed: 09/19/2024 10:52 AM Status: COMPLETED Source: [facility] ID: [id number] Author: ADRIAN LÓPEZ APRN.TERMITE TECHNICIAN Service: ? Author Type: Nurse Specialist Type: Progress Notes Filed: 09/19/2024 11:12 Note Text: SUBJECTIVE: Lung Cancer Screening Never done Covid-19 Vaccine( season) due on 07/03/2024 HPI Yenny Marshall is a 64 year old female. PMH significant for ACTIVE PROBLEM LIST Lumbar Radiculopathy Ddd (Degenerative Disc Disease), Cervical Ddd (Degenerative Disc Disease), Lumbar Disc Displacement, Lumbar Cervical Disc Displacement Hematuria Chronic Pelvic Pain in Female Urgency of Urination Frequency of Urination Oab (Overactive Bladder) Smoking History Asthma Migraine Mdd (Major Depressive Disorder), Recurrent Episode (Hcc) Alcohol Dependence in Remission ([facility]) History of substance abuse ([facility]) Snoring Disorder Right Hip Pain Thoracic Myofascial Strain Edema of Both Legs Bilateral Foot Pain Osteoarthritis of Lumbar Spine Altered Bowel Habits Class 2 Obesity Due to Excess Calories With Body Mass Index (Bmi) of 38.0 to 38.9 in Adult Biliary Dyskinesia Chronic Bilateral Low Back Pain With Bilateral Sciatica Pulmonary Embolism ([facility]) Mitral Valve Prolapse Class 3 Severe Obesity Due to Excess Calories With Body Mass Index (Bmi) of 40.0 to 44.9 in Adult ([facility]) Vitamin D Deficiency Presents today regarding nausea and diarrhea follow up. HPI excerpted from last visit: She reports this started on Thursday, 4 days ago. Notes she did attend a birthday republican over the weekend but no obvious sick people were encountered. No one with similar symptoms. She woke up Thursday with crampy abdominal pain that felt better with bowel movements, having watery diarrhea 3-6 times per day. No fever. No BRBPR black or tarry stools. Nausea but no vomiting. She did take some Imodium for a while but did not seem like was helping enough. 1-3 doses per day. No recent antibiotic, use no recent hospitalization. Has tken victorinayl in the past per gastroenteology for diarrhea, no current. Today reports she has chronic diarrhea, typically 4 bowel movements per day, soft, unformed. Notes at previous visit 6 BM day which is a slight increase from usual. He has not yet completed stool cultures, brings in samples today. Notes no longer having headache. No crampy abdominal pain. Afebrile. No heartburn reflux BRBPR or black or tarry stools. No constipation. Mild nausea no vomiting. Has been taking Imodium according to package directions. Took 1 dicyclomine per day since last here. History of cholecystectomy, chronically has BMs after meals. Review of Systems Respiratory: Negative. Cardiovascular: Negative. Gastrointestinal: Positive for diarrhea. Objective BP 104/72 Pulse 96 Resp 16 Wt 97 kg (213 lb 13.5 oz) LMP 03/09/2013 BMI 38.80 kg/m? Physical Exam Vitals and nursing note reviewed. Constitutional: Appearance: Normal appearance. HENT: Head: Normocephalic. Right Ear: External ear normal. Left Ear: External ear normal. Mouth/Throat: Lips: [place]. Mouth: Mucous membranes are moist. Pharynx: Oropharynx is clear. Cardiovascular: Rate and Rhythm: Normal rate and regular rhythm. Heart sounds: Normal heart sounds. Pulmonary: Effort: Pulmonary effort is normal. Breath sounds: Normal breath sounds. Abdominal: General: Bowel sounds are normal. There is no distension. Palpations: Abdomen is soft. There is no mass. Tenderness: There is no abdominal tenderness. There is no guarding or rebound. Musculoskeletal: Right lower leg: No edema. Left lower leg: No edema. Skin: General: Skin is warm and dry. Neurological: General: No focal deficit present. Mental Status: She is alert and oriented to person, place, and time. ALLERGIES Allergen Reactions Dilaudid [Hydromorp* Unknown Had dilaudid during surgery once and it led to respiratory depression and very slow breathing - she had slow/difficult emergence from anesthesia d/t this Latex Hives, Swelling, Itching Localized Penicillin G Unknown Penicillins Rash, Itching, Shortness of Breath, Hives MEDICATIONS SPIRIVA RESPIMAT 2.5 mcg/actuation inhaler ondansetron orally disintegrating (ZOFRAN ODT) 4 mg disintegrating tablet Take 1 tablet by mouth every 6 hours as needed. for nausea dicyclomine (BENTYL) 10 mg capsule Take 1 capsule by mouth before meals and at bedtime. tiZANidine (ZANAFLEX) 2 mg tablet Take 1 tablet by mouth every 6 hours as needed. clindamycin (CLEOCIN) 300 mg capsule 2 capsules 1 hour prior to dental procedure. gabapentin (NEURONTIN) 300 mg capsule Take 1 capsule by mouth every morning AND 2 capsules daily at bedtime AND 1 capsule every afternoon. Do all this for 180 days. As directed. topiramate (TOPAMAX) 50 mg tablet Take 1 tablet by mouth every morning AND 2 tablets daily at bedtime. SUMAtriptan (IMITREX) 100 mg tablet Take 1 tablet (100 mg) by mouth as needed for migraine headache (see administration instructions). May repeat dose after 2 hours if needed. Maximum daily dose is 200 mg per day.TAKE 1 TABLET BY MOUTH AT ONSET OF HEADACHE MAY REPEAT IN 2 HOURS IF HEADACHE PERSISTS MAXIMUM DAILY DOSE OF 2 TABLETS ( 200 MILLIGRAMS ) EVERY 24 HOURS fluticasone (FLONASE) 50 mcg/actuation nasal spray Use 2 Sprays in each nostril once daily. Rinse mouth after use. albuterol HFA (PROAIR HFA) 90 mcg/actuation inhaler Inhale 2 Puffs as instructed every 4 hours as needed. celecoxib (CELEBREX) 200 mg capsule Take 1 capsule by mouth two times a day. for hip and arthritic pain. Take with food meclizine (ANTIVERT) 25 mg tab 4 TIMES DAILY NEEDED as needed for Dizziness furosemide (LASIX) 20 mg tablet Take 0.5-1 tablets by mouth once daily as needed. for swelling in feet OXYGEN, HOME THERAPY, 3 L/min by Nasal Cannula route as directed. At night ARIPiprazole (ABILIFY) 15 mg tablet Take 1 tablet by mouth once daily. Dr. Rodriguez DULoxetine (CYMBALTA) 20 mg capsule Take 20 mg by mouth twice daily. Nebulizer Accessories kit Provide nebulizer kit. albuterol (PROVENTIL) 2.5 mg /3 mL (0.083 %) nebulizer solution Use 3 mL via nebulizer four times daily as needed for Wheezing/Shortness of Breath. Inhale by nebulizer over 5-15 minutes hydrOXYzine pamoate (VISTARIL) 25 mg capsule Take 2 capsules by mouth four times daily as needed. Dr. Rodriguez budesonide-formoterol (SYMBICORT) 160-4.5 mcg/actuation inhaler Inhale 2 Puffs as instructed two times a day. (Patient not taking: Reported on 09/15/2024) PAST MEDICAL HISTORY Diagnosis Date Arrhythmia Asthma Blood dyscrasia Cervical disc displacement 04/17/2011 Chronic obstructive pulmonary disease (COPD) ([facility]) Class 2 obesity due to excess calories without serious comorbidity with body mass index (BMI) of 37.0 to 37.9 in adult 05/11/2018 Degenerative disk disease bulging disks Depression Foot fracture, right 2003 Fell off ladder and fractured right foot H/O ETOH abuse In remission/recovery over 10 years (as of 11/2019) Lactose intolerance Lumbar radiculopathy 04/17/2011 Migraine 04/02/2012 Mitral valve prolapse KALPESH (obstructive sleep apnea) 12/15/2012 KALPESH (obstructive sleep apnea) 12/15/2012 SLEEP ARCHITECTURE: PSG 10/05/2012 The study started at 22:34:01 and ended at 06:39:39. Total sleep time was 405 minutes resulting in a sleep efficiency of 92.2% (TRT = 439 m). There were 14 awakenings with a total time awake after sleep onset of 11.0 minutes. The sleep latency was 23.0 minutes and the REM latency was 308 minutes. Snoring Substance abuse (HCC) In remission >10 years (as of 11/2019) Social History Tobacco Use Smoking status: Former Current packs/day: 0.00 Average packs/day: 1 pack/day for 48.8 years (48.8 ttl pk-yrs) Types: Cigarettes Start date: 11/02/1973 Quit date: 08/13/2022 Years since quittin.1 Smokeless tobacco: Never Tobacco comments: Started smoking at age 14, 1ppd. Both parents smokers. Vaping Use Vaping status: Never Used Substance Use Topics Alcohol use: Not Currently Comment: August 27, 2009 quit Drug use: No Comment: past history of cocaine and marijuana- quit 2008 Latest Ref Rng 03/17/2024 WBC 3.70 - 11.00 k/uL 6.06 RBC 3.90 - 5.20 m/uL 4.02 Hemoglobin 11.5 - 15.5 g/dL 12.1 Hematocrit 36.0 - 46.0 % 38.8 MCV 80.0 - 100.0 fL 96.5 MCH 26.0 - 34.0 pg 30.1 MCHC 30.5 - 36.0 g/dL 31.2 RDW-CV 11.5 - 15.0 % 13.2 Platelet Count 150 - 400 k/uL 276 MPV 9.0 - 12.7 fL 10.1 Neut% % 56.9 Abs Neut (ANC) 1.45 - 7.50 k/uL 3.46 Lymph% % 34.2 Abs Lymph 1.00 - 4.00 k/uL 2.07 Billings% % 5.0 Abs Billings <0.87 k/uL 0.30 Eosin% % 2.5 Abs Eosin <0.46 k/uL 0.15 Baso% % 1.2 Abs Baso <0.11 k/uL 0.07 Immature Gran % % 0.2 IMMATURE GRANS (ABS) <0.10 k/uL <0.03 NRBC /100 WBC 0.0 Absolute nRBC <0.01 k/uL <0.01 DTYPE Auto Protein, Total 6.3 - 8.0 g/dL 6.3 Albumin 3.9 - 4.9 g/dL 4.1 Calcium 8.5 - 10.2 mg/dL 9.6 Bilirubin, Total 0.2 - 1.3 mg/dL 0.2 Alkaline Phosphatase 34 - 123 U/L 63 AST 13 - 35 U/L 19 ALT 7 - 38 U/L 19 Glucose 74 - 99 mg/dL 113 (H) BUN 7 - 21 mg/dL 21 Creatinine 0.58 - 0.96 mg/dL 0.60 Sodium 136 - 144 mmol/L 142 Potassium 3.7 - 5.1 mmol/L 4.3 Chloride 97 - 105 mmol/L 106 (H) CO2 22 - 30 mmol/L 25 Anion Gap 9 - 18 mmol/L 11 eGFR >=60 mL/min/1.73m? 101 Hemoglobin A1C 4.3 - 5.6 % 5.2 Estimated Average Glucose mg/dL 103 TSH 0.270 - 4.200 mIU/L 0.988 Vitamin D 25 Hydroxy 31.0 - 80.0 ng/mL 31.6 ASSESSMENT/PLAN: ASSESSMENT/PLAN: 1. History of cholecystectomy - ICD9: V45.79, ICD10: Z90.49 (primary diagnosis) 2. Chronic diarrhea - ICD9: 787.91, ICD10: K52.9 - CHOLESTYRAMINE (WITH SUGAR) 4 GRAM POWDER FOR SUSP IN A PACKET - CONSULT TO GASTROENTEROLOGY 3. Nausea - ICD9: 787.02, ICD10: R11.0 (primary diagnosis) - ONDANSETRON 4 MG DISINTEGRATING TABLET - C. DIFFICILE PCR Recommend continue with nausea medicine as needed. Continue with a mild diet. Add one or two packets of cholestyramine per day as needed for diarrhea. If this is helpful may remain on this long-term. Continue with Bentyl, currently taking 1/day. If cholestyramine is not helping enough with diarrhea may increase status as needed up to 4 times per day. If all these measures are not helping then can add Imodium per package directions. Medical Decision Making: Problems: Moderate: 1+ chronic illnesses with change Risk: Moderate: Drug management Medical Decision Making Level: 4 - Moderate CNOV Observed: 09/19/2024 10:40 AM Status: COMPLETED Source: [facility] Office Visit ([facility]) YENNY MARSHALL ([id number]) 1960 F Date Time Provider Department 09/19/24 10:40 AM ADRIAN LÓPEZ [facility] During your visit today, we recorded the following information about you: Pulse Respiration Blood pressure Weight 96/minute 16/minute 104/72 97 kg Adrian López, JESSICA.TERMITE TECHNICIAN 09/19/2024 11:12 AM Signed SUBJECTIVE: Lung Cancer Screening Never done Covid-19 Vaccine( season) due on 07/03/2024 HPI Yenny Marshall is a 64 year old female. PMH significant for ACTIVE PROBLEM LIST Lumbar Radiculopathy Ddd (Degenerative Disc Disease), Cervical Ddd (Degenerative Disc Disease), Lumbar Disc Displacement, Lumbar Cervical Disc Displacement Hematuria Chronic Pelvic Pain in Female Urgency of Urination Frequency of Urination Oab (Overactive Bladder) Smoking History Asthma Migraine Mdd (Major Depressive Disorder), Recurrent Episode (Hcc) Alcohol Dependence in Remission (Hcc) History of substance abuse (HCC) Snoring Disorder Right Hip Pain Thoracic Myofascial Strain Edema of Both Legs Bilateral Foot Pain Osteoarthritis of Lumbar Spine Altered Bowel Habits Class 2 Obesity Due to Excess Calories With Body Mass Index (Bmi) of 38.0 to 38.9 in Adult Biliary Dyskinesia Chronic Bilateral Low Back Pain With Bilateral Sciatica Pulmonary Embolism (Hcc) Mitral Valve Prolapse Class 3 Severe Obesity Due to Excess Calories With Body Mass Index (Bmi) of 40.0 to 44.9 in Adult (Hcc) Vitamin D Deficiency Presents today regarding nausea and diarrhea follow up. HPI excerpted from last visit: She reports this started on Thursday, 4 days ago. Notes she did attend a birthday republican over the weekend but no obvious sick people were encountered. No one with similar symptoms. She woke up Thursday with crampy abdominal pain that felt better with bowel movements, having watery diarrhea 3-6 times per day. No fever. No BRBPR black or tarry stools. Nausea but no vomiting. She did take some Imodium for a while but did not seem like was helping enough. 1-3 doses per day. No recent antibiotic, use no recent hospitalization. Has rissa salamanac in the past per gastroenteology for diarrhea, no current. Today reports she has chronic diarrhea, typically 4 bowel movements per day, soft, unformed. Notes at previous visit 6 BM day which is a slight increase from usual. He has not yet completed stool cultures, brings in samples today. Notes no longer having headache. No crampy abdominal pain. Afebrile. No heartburn reflux BRBPR or black or tarry stools. No constipation. Mild nausea no vomiting. Has been taking Imodium according to package directions. Took 1 dicyclomine per day since last here. History of cholecystectomy, chronically has BMs after meals. Review of Systems Respiratory: Negative. Cardiovascular: Negative. Gastrointestinal: Positive for diarrhea. Objective BP 104/72 Pulse 96 Resp 16 Wt 97 kg (213 lb 13.5 oz) LMP 03/09/2013 BMI 38.80 kg/m? Physical Exam Vitals and nursing note reviewed. Constitutional: Appearance: Normal appearance. HENT: Head: Normocephalic. Right Ear: External ear normal. Left Ear: External ear normal. Mouth/Throat: Lips: [place]. Mouth: Mucous membranes are moist. Pharynx: Oropharynx is clear. Cardiovascular: Rate and Rhythm: Normal rate and regular rhythm. Heart sounds: Normal heart sounds. Pulmonary: Effort: Pulmonary effort is normal. Breath sounds: Normal breath sounds. Abdominal: General: Bowel sounds are normal. There is no distension. Palpations: Abdomen is soft. There is no mass. Tenderness: There is no abdominal tenderness. There is no guarding or rebound. Musculoskeletal: Right lower leg: No edema. Left lower leg: No edema. Skin: General: Skin is warm and dry. Neurological: General: No focal deficit present. Mental Status: She is alert and oriented to person, place, and time. ALLERGIES Allergen Reactions Dilaudid [Hydromorp* Unknown Had dilaudid during surgery once and it led to respiratory depression and very slow breathing - she had slow/difficult emergence from anesthesia d/t this Latex Hives, Swelling, Itching Localized Penicillin G Unknown Penicillins Rash, Itching, Shortness of Breath, Hives MEDICATIONS SPIRIVA RESPIMAT 2.5 mcg/actuation inhaler ondansetron orally disintegrating (ZOFRAN ODT) 4 mg disintegrating tablet Take 1 tablet by mouth every 6 hours as needed. for nausea dicyclomine (BENTYL) 10 mg capsule Take 1 capsule by mouth before meals and at bedtime. tiZANidine (ZANAFLEX) 2 mg tablet Take 1 tablet by mouth every 6 hours as needed. clindamycin (CLEOCIN) 300 mg capsule 2 capsules 1 hour prior to dental procedure. gabapentin (NEURONTIN) 300 mg capsule Take 1 capsule by mouth every morning AND 2 capsules daily at bedtime AND 1 capsule every afternoon. Do all this for 180 days. As directed. topiramate (TOPAMAX) 50 mg tablet Take 1 tablet by mouth every morning AND 2 tablets daily at bedtime. SUMAtriptan (IMITREX) 100 mg tablet Take 1 tablet (100 mg) by mouth as needed for migraine headache (see administration instructions). May repeat dose after 2 hours if needed. Maximum daily dose is 200 mg per day.TAKE 1 TABLET BY MOUTH AT ONSET OF HEADACHE MAY REPEAT IN 2 HOURS IF HEADACHE PERSISTS MAXIMUM DAILY DOSE OF 2 TABLETS ( 200 MILLIGRAMS ) EVERY 24 HOURS fluticasone (FLONASE) 50 mcg/actuation nasal spray Use 2 Sprays in each nostril once daily. Rinse mouth after use. albuterol HFA (PROAIR HFA) 90 mcg/actuation inhaler Inhale 2 Puffs as instructed every 4 hours as needed. celecoxib (CELEBREX) 200 mg capsule Take 1 capsule by mouth two times a day. for hip and arthritic pain. Take with food meclizine (ANTIVERT) 25 mg tab 4 TIMES DAILY NEEDED as needed for Dizziness furosemide (LASIX) 20 mg tablet Take 0.5-1 tablets by mouth once daily as needed. for swelling in feet OXYGEN, HOME THERAPY, 3 L/min by Nasal Cannula route as directed. At night ARIPiprazole (ABILIFY) 15 mg tablet Take 1 tablet by mouth once daily. Dr. Rodrgiuez DULoxetine (CYMBALTA) 20 mg capsule Take 20 mg by mouth twice daily. Nebulizer Accessories kit Provide nebulizer kit. albuterol (PROVENTIL) 2.5 mg /3 mL (0.083 %) nebulizer solution Use 3 mL via nebulizer four times daily as needed for Wheezing/Shortness of Breath. Inhale by nebulizer over 5-15 minutes hydrOXYzine pamoate (VISTARIL) 25 mg capsule Take 2 capsules by mouth four times daily as needed. Dr. Rodriguez budesonide-formoterol (SYMBICORT) 160-4.5 mcg/actuation inhaler Inhale 2 Puffs as instructed two times a day. (Patient not taking: Reported on 09/15/2024) PAST MEDICAL HISTORY Diagnosis Date Arrhythmia Asthma Blood dyscrasia Cervical disc displacement 04/17/2011 Chronic obstructive pulmonary disease (COPD) ([facility]) Class 2 obesity due to excess calories without serious comorbidity with body mass index (BMI) of 37.0 to 37.9 in adult 05/11/2018 Degenerative disk disease bulging disks Depression Foot fracture, right 2003 Fell off ladder and fractured right foot H/O ETOH abuse In remission/recovery over 10 years (as of 11/2019) Lactose intolerance Lumbar radiculopathy 04/17/2011 Migraine 04/02/2012 Mitral valve prolapse KALPESH (obstructive sleep apnea) 12/15/2012 KALPESH (obstructive sleep apnea) 12/15/2012 SLEEP ARCHITECTURE: PSG 10/05/2012 The study started at 22:34:01 and ended at 06:39:39. Total sleep time was 405 minutes resulting in a sleep efficiency of 92.2% (TRT = 439 m). There were 14 awakenings with a total time awake after sleep onset of 11.0 minutes. The sleep latency was 23.0 minutes and the REM latency was 308 minutes. Snoring Substance abuse ([facility]) In remission >10 years (as of 11/2019) Social History Tobacco Use Smoking status: Former Current packs/day: 0.00 Average packs/day: 1 pack/day for 48.8 years (48.8 ttl pk-yrs) Types: Cigarettes Start date: 11/02/1973 Quit date: 08/13/2022 Years since quittin.1 Smokeless tobacco: Never Tobacco comments: Started smoking at age 14, 1ppd. Both parents smokers. Vaping Use Vaping status: Never Used Substance Use Topics Alcohol use: Not Currently Comment: August 27, 2009 quit Drug use: No Comment: past history of cocaine and marijuana- quit 2008 Latest Ref Rng 03/17/2024 WBC 3.70 - 11.00 k/uL 6.06 RBC 3.90 - 5.20 m/uL 4.02 Hemoglobin 11.5 - 15.5 g/dL 12.1 Hematocrit 36.0 - 46.0 % 38.8 MCV 80.0 - 100.0 fL 96.5 MCH 26.0 - 34.0 pg 30.1 MCHC 30.5 - 36.0 g/dL 31.2 RDW-CV 11.5 - 15.0 % 13.2 Platelet Count 150 - 400 k/uL 276 MPV 9.0 - 12.7 fL 10.1 Neut% % 56.9 Abs Neut (ANC) 1.45 - 7.50 k/uL 3.46 Lymph% % 34.2 Abs Lymph 1.00 - 4.00 k/uL 2.07 Billings% % 5.0 Abs Billings <0.87 k/uL 0.30 Eosin% % 2.5 Abs Eosin <0.46 k/uL 0.15 Baso% % 1.2 Abs Baso <0.11 k/uL 0.07 Immature Gran % % 0.2 IMMATURE GRANS (ABS) <0.10 k/uL <0.03 NRBC /100 WBC 0.0 Absolute nRBC <0.01 k/uL <0.01 DTYPE Auto Protein, Total 6.3 - 8.0 g/dL 6.3 Albumin 3.9 - 4.9 g/dL 4.1 Calcium 8.5 - 10.2 mg/dL 9.6 Bilirubin, Total 0.2 - 1.3 mg/dL 0.2 Alkaline Phosphatase 34 - 123 U/L 63 AST 13 - 35 U/L 19 ALT 7 - 38 U/L 19 Glucose 74 - 99 mg/dL 113 (H) BUN 7 - 21 mg/dL 21 Creatinine 0.58 - 0.96 mg/dL 0.60 Sodium 136 - 144 mmol/L 142 Potassium 3.7 - 5.1 mmol/L 4.3 Chloride 97 - 105 mmol/L 106 (H) CO2 22 - 30 mmol/L 25 Anion Gap 9 - 18 mmol/L 11 eGFR >=60 mL/min/1.73m? 101 Hemoglobin A1C 4.3 - 5.6 % 5.2 Estimated Average Glucose mg/dL 103 TSH 0.270 - 4.200 mIU/L 0.988 Vitamin D 25 Hydroxy 31.0 - 80.0 ng/mL 31.6 ASSESSMENT/PLAN: ASSESSMENT/PLAN: 1. History of cholecystectomy - ICD9: V45.79, ICD10: Z90.49 (primary diagnosis) 2. Chronic diarrhea - ICD9: 787.91, ICD10: K52.9 - CHOLESTYRAMINE (WITH SUGAR) 4 GRAM POWDER FOR SUSP IN A PACKET - CONSULT TO GASTROENTEROLOGY 3. Nausea - ICD9: 787.02, ICD10: R11.0 (primary diagnosis) - ONDANSETRON 4 MG DISINTEGRATING TABLET - C. DIFFICILE PCR Recommend continue with nausea medicine as needed. Continue with a mild diet. Add one or two packets of cholestyramine per day as needed for diarrhea. If this is helpful may remain on this long-term. Continue with Bentyl, currently taking 1/day. If cholestyramine is not helping enough with diarrhea may increase status as needed up to 4 times per day. If all these measures are not helping then can add Imodium per package directions. Medical Decision Making: Problems: Moderate: 1+ chronic illnesses with change Risk: Moderate: Drug management Medical Decision Making Level: 4 - Moderate Adrian López, JESSICA.TERMITE TECHNICIAN 09/19/2024 11:10 AM Signed Recommend continue with nausea medicine as needed. Continue with a mild diet. Add one or two packets of cholestyramine per day as needed for diarrhea. If this is helpful may remain on this long-term. Continue with Bentyl, currently taking 1/day. If cholestyramine is not helping enough with diarrhea may increase status as needed up to 4 times per day. If all these measures are not helping then can add Imodium per package directions. Referring Provider: ADRIAN LÓPEZ [[id number]] Allergies As of Date: 09/19/2024 Noted Allergy Reaction DILAUDID (HYDROMORPHONE) 10/22/2023 16 - Unknown Comments: Had dilaudid during surgery once and it led to respiratory depression and very slow breathing - she had slow/difficult emergence from anesthesia d/t this LATEX 04/17/2014 4 - Hives 7 - Swelling 9 - Itching Comments: Localized PENICILLIN G 04/22/2011 16 - Unknown PENICILLINS 04/17/2011 2 - Rash 9 - Itching 12 - Shortness of Breath 4 - Hives Date Reviewed: 09/19/2024 Reviewed by: Adrian López APRN.TERMITE TECHNICIAN - Fully Assessed Reason for Visit: Follow Up [171] Primary Visit Diagnosis:History of cholecystectomy [Z90.49] Other Visit Diagnoses:Chronic diarrhea [K52.9] Nausea [R11.0] Order(s):cholestyramine (QUESTRAN) 4 gram packetTake 1 Packet by mouth two times a day with meals. as needed for diarrheaDisp: 60 PacketRfl: 5 CONSULT TO GASTROENTEROLOGY [9010] Order #: [id number]: 1 FUTURE Prescriptions as of 09/19/2024 - cholestyramine (QUESTRAN) 4 gram packet Take 1 Packet by mouth two times a day with meals. as needed for diarrhea - SPIRIVA RESPIMAT 2.5 mcg/actuation inhaler - ondansetron orally disintegrating (ZOFRAN ODT) 4 mg disintegrating tablet Take 1 tablet by mouth every 6 hours as needed. for nausea - dicyclomine (BENTYL) 10 mg capsule Take 1 capsule by mouth before meals and at bedtime. - tiZANidine (ZANAFLEX) 2 mg tablet Take 1 tablet by mouth every 6 hours as needed. - clindamycin (CLEOCIN) 300 mg capsule 2 capsules 1 hour prior to dental procedure. - gabapentin (NEURONTIN) 300 mg capsule Take 1 capsule by mouth every morning AND 2 capsules daily at bedtime AND 1 capsule every afternoon. Do all this for 180 days. As directed. - topiramate (TOPAMAX) 50 mg tablet Take 1 tablet by mouth every morning AND 2 tablets daily at bedtime. - SUMAtriptan (IMITREX) 100 mg tablet Take 1 tablet (100 mg) by mouth as needed for migraine headache (see administration instructions). May repeat dose after 2 hours if needed. Maximum daily dose is 200 mg per day.TAKE 1 TABLET BY MOUTH AT ONSET OF HEADACHE MAY REPEAT IN 2 HOURS IF HEADACHE PERSISTS MAXIMUM DAILY DOSE OF 2 TABLETS ( 200 MILLIGRAMS ) EVERY 24 HOURS - fluticasone (FLONASE) 50 mcg/actuation nasal spray Use 2 Sprays in each nostril once daily. Rinse mouth after use. - albuterol HFA (PROAIR HFA) 90 mcg/actuation inhaler Inhale 2 Puffs as instructed every 4 hours as needed. - celecoxib (CELEBREX) 200 mg capsule Take 1 capsule by mouth two times a day. for hip and arthritic pain. Take with food - meclizine (ANTIVERT) 25 mg tab 4 TIMES DAILY NEEDED as needed for Dizziness - furosemide (LASIX) 20 mg tablet Take 0.5-1 tablets by mouth once daily as needed. for swelling in feet - budesonide-formoterol (SYMBICORT) 160-4.5 mcg/actuation inhaler Inhale 2 Puffs as instructed two times a day. - OXYGEN, HOME THERAPY, 3 L/min by Nasal Cannula route as directed. At night - ARIPiprazole (ABILIFY) 15 mg tablet Take 1 tablet by mouth once daily. Dr. Rodriguez - DULoxetine (CYMBALTA) 20 mg capsule Take 20 mg by mouth twice daily. - Nebulizer Accessories kit Provide nebulizer kit. - albuterol (PROVENTIL) 2.5 mg /3 mL (0.083 %) nebulizer solution Use 3 mL via nebulizer four times daily as needed for Wheezing/Shortness of Breath. Inhale by nebulizer over 5-15 minutes - hydrOXYzine pamoate (VISTARIL) 25 mg capsule Take 2 capsules by mouth four times daily as needed. Dr. Rodriguez [facility] Comments as of 04/29/2023: April 29, 2023. Patient started new Levaquin Rx today. Disha Tim RN Problem List As Of Date 09/19/2024 Noted Resolved Lumbar radiculopathy [M54.16] 04/17/2011 DDD (degenerative disc disease), cervical [M50.*04/17/2011 DDD (degenerative disc disease), lumbar [M51.36*04/17/2011 Disc displacement, lumbar [M51.26] 04/17/2011 Cervical disc displacement [M50.20] 04/17/2011 Hematuria [R31.9] 11/25/2011 Chronic pelvic pain in female [R10.2, G89.29] 11/25/2011 Urgency of urination [R39.15] 11/25/2011 Frequency of urination [R35.0] 11/25/2011 OAB (overactive bladder) [N32.81] 11/25/2011 Smoking history [Z87.891] 11/25/2011 Asthma [J45.909] Migraine [G43.909] 04/02/2012 MDD (major depressive disorder), recurrent epis*08/05/2012 Alcohol dependence in remission (HCC) [F10.21] 08/05/2012 History of substance abuse (HCC) [F19.11] 08/05/2012 Snoring disorder [R06.83] 12/15/2012 Depression [F32.A] 06/11/2022 Right hip pain [M25.551] 08/04/2014 Thoracic myofascial strain [S29.019A] 01/10/2015 Edema of both legs [R60.0] 05/29/2015 Bilateral foot pain [M79.671, M79.672] 07/13/2015 Osteoarthritis of lumbar spine [M47.816] 08/22/2015 Altered bowel habits [R19.4] 10/28/2017 Class 2 obesity due to excess calories with bod*05/11/2018 Biliary dyskinesia [K82.8] 08/24/2018 Obesity, Class I, BMI 30-34.9 [E66.811] 05/23/2019 06/11/2022 Chronic bilateral low back pain with bilateral *09/01/2019 Class 2 obesity due to excess calories without *05/11/2018 11/30/2019 Pulmonary embolism (HCC) [I26.99] 05/29/2023 Mitral valve prolapse [I34.1] 10/22/2023 Class 3 severe obesity due to excess calories w*11/27/2023 Vitamin D deficiency [E55.9] 12/30/2023 Other instructions from your clinician: Recommend continue with nausea medicine as needed. Continue with a mild diet. Add one or two packets of cholestyramine per day as needed for diarrhea. If this is helpful may remain on this long-term. Continue with Bentyl, currently taking 1/day. If cholestyramine is not helping enough with diarrhea may increase status as needed up to 4 times per day. If all these measures are not helping then can add Imodium per package directions. Prescriptions ordered this encounter Disp Refills Start End CHOLESTYRAMINE (WITH SUGAR) 4 GRAM P* 60 P* 5 09/19/2024 Route: ORAL Sig: Take 1 Packet by mouth two times a day with meals. as needed for diarrhea Level of Service: OFFICE/OUTPATIENT ESTABLISHED MOD [facility] 30 MIN [98212] Additional E/M codes: VISIT CPLX INHERENT EANDM ASSOC WITH MED * Encounter Status:Closed by ADRIAN LÓPEZ on 09/19/24 CNOV Observed: 09/15/2024 12:20 PM Status: COMPLETED Source: [facility] Office Visit (INTMWS) YENNY MARSHALL ([id number]) 1960 F Date Time Provider Department 09/15/24 12:20 PM ADRIAN LÓPEZ INTMWS During your visit today, we recorded the following information about you: Temperature Pulse Respiration Blood pressure 98.6 degrees 91/minute 16/minute 121/81 Weight 98.9 kg Adrian López APRN.TERMITE TECHNICIAN 09/15/2024 12:57 PM Signed SUBJECTIVE: Lung Cancer Screening Never done Covid-19 Vaccine( season) due on 07/03/2024 HPI Yenny Marshall is a 64 year old female. PMH significant for ACTIVE PROBLEM LIST Lumbar Radiculopathy Ddd (Degenerative Disc Disease), Cervical Ddd (Degenerative Disc Disease), Lumbar Disc Displacement, Lumbar Cervical Disc Displacement Hematuria Chronic Pelvic Pain in Female Urgency of Urination Frequency of Urination Oab (Overactive Bladder) Smoking History Asthma Migraine Mdd (Major Depressive Disorder), Recurrent Episode (Hcc) Alcohol Dependence in Remission (Hcc) History of substance abuse (HCC) Snoring Disorder Right Hip Pain Thoracic Myofascial Strain Edema of Both Legs Bilateral Foot Pain Osteoarthritis of Lumbar Spine Altered Bowel Habits Class 2 Obesity Due to Excess Calories With Body Mass Index (Bmi) of 38.0 to 38.9 in Adult Biliary Dyskinesia Chronic Bilateral Low Back Pain With Bilateral Sciatica Pulmonary Embolism (Hcc) Mitral Valve Prolapse Class 3 Severe Obesity Due to Excess Calories With Body Mass Index (Bmi) of 40.0 to 44.9 in Adult (Hcc) Vitamin D Deficiency Presents today regarding nausea and diarrhea. She reports this started on Thursday, 4 days ago. Notes she did attend a birthday republican over the weekend but no obvious sick people were encountered. No one with similar symptoms. She woke up Thursday with crampy abdominal pain that felt better with bowel movements, having watery diarrhea 3-6 times per day. No fever. No BRBPR black or tarry stools. Nausea but no vomiting. She did take some Imodium for a while but did not seem like was helping enough. 1-3 doses per day. No recent antibiotic, use no recent hospitalization. Has rissa salamanca in the past per gastroenteology for diarrhea, no current. Review of Systems Respiratory: Negative. Cardiovascular: Negative. Objective BP 121/81 Pulse 91 Temp 37 ?C (98.6 ?F) Resp 16 Wt 98.9 kg (218 lb 0.6 oz) LMP 03/09/2013 BMI 39.56 kg/m? Physical Exam Vitals and nursing note reviewed. Constitutional: Appearance: Normal appearance. HENT: Head: Normocephalic. Right Ear: External ear normal. Left Ear: External ear normal. Mouth/Throat: Lips: [place]. Mouth: Mucous membranes are moist. Pharynx: Oropharynx is clear. Cardiovascular: Rate and Rhythm: Normal rate and regular rhythm. Heart sounds: Normal heart sounds. Pulmonary: Effort: Pulmonary effort is normal. Breath sounds: Normal breath sounds. Abdominal: General: Bowel sounds are normal. There is no distension. Palpations: Abdomen is soft. There is no mass. Tenderness: There is no abdominal tenderness. There is no guarding or rebound. Musculoskeletal: Right lower leg: No edema. Left lower leg: No edema. Skin: General: Skin is warm and dry. Neurological: General: No focal deficit present. Mental Status: She is alert and oriented to person, place, and time. ALLERGIES Allergen Reactions Dilaudid [Hydromorp* Unknown Had dilaudid during surgery once and it led to respiratory depression and very slow breathing - she had slow/difficult emergence from anesthesia d/t this Latex Hives, Swelling, Itching Localized Penicillin G Unknown Penicillins Rash, Itching, Shortness of Breath, Hives MEDICATIONS SPIRIVA RESPIMAT 2.5 mcg/actuation inhaler tiZANidine (ZANAFLEX) 2 mg tablet Take 1 tablet by mouth every 6 hours as needed. clindamycin (CLEOCIN) 300 mg capsule 2 capsules 1 hour prior to dental procedure. gabapentin (NEURONTIN) 300 mg capsule Take 1 capsule by mouth every morning AND 2 capsules daily at bedtime AND 1 capsule every afternoon. Do all this for 180 days. As directed. topiramate (TOPAMAX) 50 mg tablet Take 1 tablet by mouth every morning AND 2 tablets daily at bedtime. SUMAtriptan (IMITREX) 100 mg tablet Take 1 tablet (100 mg) by mouth as needed for migraine headache (see administration instructions). May repeat dose after 2 hours if needed. Maximum daily dose is 200 mg per day.TAKE 1 TABLET BY MOUTH AT ONSET OF HEADACHE MAY REPEAT IN 2 HOURS IF HEADACHE PERSISTS MAXIMUM DAILY DOSE OF 2 TABLETS ( 200 MILLIGRAMS ) EVERY 24 HOURS fluticasone (FLONASE) 50 mcg/actuation nasal spray Use 2 Sprays in each nostril once daily. Rinse mouth after use. albuterol HFA (PROAIR HFA) 90 mcg/actuation inhaler Inhale 2 Puffs as instructed every 4 hours as needed. celecoxib (CELEBREX) 200 mg capsule Take 1 capsule by mouth two times a day. for hip and arthritic pain. Take with food meclizine (ANTIVERT) 25 mg tab 4 TIMES DAILY NEEDED as needed for Dizziness furosemide (LASIX) 20 mg tablet Take 0.5-1 tablets by mouth once daily as needed. for swelling in feet OXYGEN, HOME THERAPY, 3 L/min by Nasal Cannula route as directed. At night ARIPiprazole (ABILIFY) 15 mg tablet Take 1 tablet by mouth once daily. Dr. Rodriguez DULoxetine (CYMBALTA) 20 mg capsule Take 20 mg by mouth twice daily. Nebulizer Accessories kit Provide nebulizer kit. albuterol (PROVENTIL) 2.5 mg /3 mL (0.083 %) nebulizer solution Use 3 mL via nebulizer four times daily as needed for Wheezing/Shortness of Breath. Inhale by nebulizer over 5-15 minutes hydrOXYzine pamoate (VISTARIL) 25 mg capsule Take 2 capsules by mouth four times daily as needed. Dr. Rodriguez ondansetron orally disintegrating (ZOFRAN ODT) 4 mg disintegrating tablet Take 1 tablet by mouth every 6 hours as needed. for nausea dicyclomine (BENTYL) 10 mg capsule Take 1 capsule by mouth before meals and at bedtime. budesonide-formoterol (SYMBICORT) 160-4.5 mcg/actuation inhaler Inhale 2 Puffs as instructed two times a day. (Patient not taking: Reported on 09/15/2024) PAST MEDICAL HISTORY Diagnosis Date Arrhythmia Asthma Blood dyscrasia Cervical disc displacement 04/17/2011 Chronic obstructive pulmonary disease (COPD) ([facility]) Class 2 obesity due to excess calories without serious comorbidity with body mass index (BMI) of 37.0 to 37.9 in adult 05/11/2018 Degenerative disk disease bulging disks Depression Foot fracture, right 2003 Fell off ladder and fractured right foot H/O ETOH abuse In remission/recovery over 10 years (as of 11/2019) Lactose intolerance Lumbar radiculopathy 04/17/2011 Migraine 04/02/2012 Mitral valve prolapse KALPESH (obstructive sleep apnea) 12/15/2012 KALPESH (obstructive sleep apnea) 12/15/2012 SLEEP ARCHITECTURE: PSG 10/05/2012 The study started at 22:34:01 and ended at 06:39:39. Total sleep time was 405 minutes resulting in a sleep efficiency of 92.2% (TRT = 439 m). There were 14 awakenings with a total time awake after sleep onset of 11.0 minutes. The sleep latency was 23.0 minutes and the REM latency was 308 minutes. Snoring Substance abuse ([facility]) In remission >10 years (as of 11/2019) Social History Tobacco Use Smoking status: Former Current packs/day: 0.00 Average packs/day: 1 pack/day for 48.8 years (48.8 ttl pk-yrs) Types: Cigarettes Start date: 11/02/1973 Quit date: 08/13/2022 Years since quittin.0 Smokeless tobacco: Never Tobacco comments: Started smoking at age 14, 1ppd. Both parents smokers. Vaping Use Vaping status: Never Used Substance Use Topics Alcohol use: Not Currently Comment: August 27, 2009 quit Drug use: No Comment: past history of cocaine and marijuana- quit 2008 Latest Ref Rng 03/17/2024 WBC 3.70 - 11.00 k/uL 6.06 RBC 3.90 - 5.20 m/uL 4.02 Hemoglobin 11.5 - 15.5 g/dL 12.1 Hematocrit 36.0 - 46.0 % 38.8 MCV 80.0 - 100.0 fL 96.5 MCH 26.0 - 34.0 pg 30.1 MCHC 30.5 - 36.0 g/dL 31.2 RDW-CV 11.5 - 15.0 % 13.2 Platelet Count 150 - 400 k/uL 276 MPV 9.0 - 12.7 fL 10.1 Neut% % 56.9 Abs Neut (ANC) 1.45 - 7.50 k/uL 3.46 Lymph% % 34.2 Abs Lymph 1.00 - 4.00 k/uL 2.07 Billings% % 5.0 Abs Billings <0.87 k/uL 0.30 Eosin% % 2.5 Abs Eosin <0.46 k/uL 0.15 Baso% % 1.2 Abs Baso <0.11 k/uL 0.07 Immature Gran % % 0.2 IMMATURE GRANS (ABS) <0.10 k/uL <0.03 NRBC /100 WBC 0.0 Absolute nRBC <0.01 k/uL <0.01 DTYPE Auto Protein, Total 6.3 - 8.0 g/dL 6.3 Albumin 3.9 - 4.9 g/dL 4.1 Calcium 8.5 - 10.2 mg/dL 9.6 Bilirubin, Total 0.2 - 1.3 mg/dL 0.2 Alkaline Phosphatase 34 - 123 U/L 63 AST 13 - 35 U/L 19 ALT 7 - 38 U/L 19 Glucose 74 - 99 mg/dL 113 (H) BUN 7 - 21 mg/dL 21 Creatinine 0.58 - 0.96 mg/dL 0.60 Sodium 136 - 144 mmol/L 142 Potassium 3.7 - 5.1 mmol/L 4.3 Chloride 97 - 105 mmol/L 106 (H) CO2 22 - 30 mmol/L 25 Anion Gap 9 - 18 mmol/L 11 eGFR >=60 mL/min/1.73m? 101 Hemoglobin A1C 4.3 - 5.6 % 5.2 Estimated Average Glucose mg/dL 103 TSH 0.270 - 4.200 mIU/L 0.988 Vitamin D 25 Hydroxy 31.0 - 80.0 ng/mL 31.6 ASSESSMENT/PLAN: 1. Nausea - ICD9: 787.02, ICD10: R11.0 (primary diagnosis) - ONDANSETRON 4 MG DISINTEGRATING TABLET - C. DIFFICILE PCR 2. Diarrhea, unspecified type - ICD9: 787.91, ICD10: R19.7 - ENTERIC BACTERIAL PANEL BY PCR - C. DIFFICILE PCR - DICYCLOMINE 10 MG CAPSULE Recommend taking Imodium according to package directions. Dicyclomine as needed. Complete stool cultures. Return to clinic on Thursday if not improving. Work excuse provided Advised: Take ondansetron as needed for nausea and vomiting. Take Imodium as needed for diarrhea per package directions. Ok to take dicylcomine as needed for diarrhea also Drink sufficient fluids, aim for 64 ounces per day Drink at least 8 ounces of Pedialyte, broth or Gatorade daily or other sports drink until feeling improved. Eat as tolerated, try smaller meals while feeling ill. Try eating saltine crackers, broth soups, starches/cereals (potatoes, noodles, rice, wheat, and oat) with some salt are excellent foods to consider. In addition, crackers, bananas, yogurt, soups, and boiled vegetables are also good choices Let us know if not feeling improved. Go to ER if unable to keep fluids or food down for 24 hours or greater Adrian López APRN.TERMITE TECHNICIAN Medical Decision Making: Problems: Low: Acute, uncomplicated illness or injury Data: Unique test(s) ordered: 2 Risk: Moderate: Drug management Medical Decision Making Level: 3 - Low Adrian López APRN.TERMITE TECHNICIAN 09/15/2024 12:43 PM Signed Take ondansetron as needed for nausea and vomiting. Take Imodium as needed for diarrhea per package directions. Ok to take dicylcomine as needed for diarrhea also Drink sufficient fluids, aim for 64 ounces per day Drink at least 8 ounces of Pedialyte, broth or Gatorade daily or other sports drink until feeling improved. Eat as tolerated, try smaller meals while feeling ill. Try eating saltine crackers, broth soups, starches/cereals (potatoes, noodles, rice, wheat, and oat) with some salt are excellent foods to consider. In addition, crackers, bananas, yogurt, soups, and boiled vegetables are also good choices Let us know if not feeling improved. Go to ER if unable to keep fluids or food down for 24 hours or greater Allergies As of Date: 09/15/2024 Noted Allergy Reaction DILAUDID (HYDROMORPHONE) 10/22/2023 16 - Unknown Comments: Had dilaudid during surgery once and it led to respiratory depression and very slow breathing - she had slow/difficult emergence from anesthesia d/t this LATEX 04/17/2014 4 - Hives 7 - Swelling 9 - Itching Comments: Localized PENICILLIN G 04/22/2011 16 - Unknown PENICILLINS 04/17/2011 2 - Rash 9 - Itching 12 - Shortness of Breath 4 - Hives Date Reviewed: 09/15/2024 Reviewed by: Adrian López APRN.TERMITE TECHNICIAN - Fully Assessed Reason for Visit: Diarrhea [35] Primary Visit Diagnosis:Nausea [R11.0] Other Visit Diagnosis:Diarrhea, unspecified type [R19.7] Order(s):ondansetron orally disintegrating (ZOFRAN ODT) 4 mg disintegrating tabletTake 1 tablet by mouth every 6 hours as needed. for nauseaDisp: 20 tabletRfl: 0 ENTERIC BACTERIAL PANEL BY PCR [SQSTLPCR] Order #: [id number]. #:[id number] C. DIFFICILE PCR [SQCDPCR] Order #: [id number]. #:[id number] dicyclomine (BENTYL) 10 mg capsuleTake 1 capsule by mouth before meals and at bedtime.Disp: 120 capsuleRfl: 3 Prescriptions as of 09/15/2024 - SPIRIVA RESPIMAT 2.5 mcg/actuation inhaler - ondansetron orally disintegrating (ZOFRAN ODT) 4 mg disintegrating tablet Take 1 tablet by mouth every 6 hours as needed. for nausea - dicyclomine (BENTYL) 10 mg capsule Take 1 capsule by mouth before meals and at bedtime. - tiZANidine (ZANAFLEX) 2 mg tablet Take 1 tablet by mouth every 6 hours as needed. - clindamycin (CLEOCIN) 300 mg capsule 2 capsules 1 hour prior to dental procedure. - gabapentin (NEURONTIN) 300 mg capsule Take 1 capsule by mouth every morning AND 2 capsules daily at bedtime AND 1 capsule every afternoon. Do all this for 180 days. As directed. - topiramate (TOPAMAX) 50 mg tablet Take 1 tablet by mouth every morning AND 2 tablets daily at bedtime. - SUMAtriptan (IMITREX) 100 mg tablet Take 1 tablet (100 mg) by mouth as needed for migraine headache (see administration instructions). May repeat dose after 2 hours if needed. Maximum daily dose is 200 mg per day.TAKE 1 TABLET BY MOUTH AT ONSET OF HEADACHE MAY REPEAT IN 2 HOURS IF HEADACHE PERSISTS MAXIMUM DAILY DOSE OF 2 TABLETS ( 200 MILLIGRAMS ) EVERY 24 HOURS - fluticasone (FLONASE) 50 mcg/actuation nasal spray Use 2 Sprays in each nostril once daily. Rinse mouth after use. - albuterol HFA (PROAIR HFA) 90 mcg/actuation inhaler Inhale 2 Puffs as instructed every 4 hours as needed. - celecoxib (CELEBREX) 200 mg capsule Take 1 capsule by mouth two times a day. for hip and arthritic pain. Take with food - meclizine (ANTIVERT) 25 mg tab 4 TIMES DAILY NEEDED as needed for Dizziness - furosemide (LASIX) 20 mg tablet Take 0.5-1 tablets by mouth once daily as needed. for swelling in feet - budesonide-formoterol (SYMBICORT) 160-4.5 mcg/actuation inhaler Inhale 2 Puffs as instructed two times a day. - OXYGEN, HOME THERAPY, 3 L/min by Nasal Cannula route as directed. At night - ARIPiprazole (ABILIFY) 15 mg tablet Take 1 tablet by mouth once daily. Dr. Rodriguez - DULoxetine (CYMBALTA) 20 mg capsule Take 20 mg by mouth twice daily. - Nebulizer Accessories kit Provide nebulizer kit. - albuterol (PROVENTIL) 2.5 mg /3 mL (0.083 %) nebulizer solution Use 3 mL via nebulizer four times daily as needed for Wheezing/Shortness of Breath. Inhale by nebulizer over 5-15 minutes - hydrOXYzine pamoate (VISTARIL) 25 mg capsule Take 2 capsules by mouth four times daily as needed. Dr. Michael Acostas Comments as of 04/29/2023: April 29, 2023. Patient started new Levaquin Rx today. Disha Tim RN Problem List As Of Date 09/15/2024 Noted Resolved Lumbar radiculopathy [M54.16] 04/17/2011 DDD (degenerative disc disease), cervical [M50.*04/17/2011 DDD (degenerative disc disease), lumbar [M51.36*04/17/2011 Disc displacement, lumbar [M51.26] 04/17/2011 Cervical disc displacement [M50.20] 04/17/2011 Hematuria [R31.9] 11/25/2011 Chronic pelvic pain in female [R10.2, G89.29] 11/25/2011 Urgency of urination [R39.15] 11/25/2011 Frequency of urination [R35.0] 11/25/2011 OAB (overactive bladder) [N32.81] 11/25/2011 Smoking history [Z87.891] 11/25/2011 Asthma [J45.909] Migraine [G43.909] 04/02/2012 MDD (major depressive disorder), recurrent epis*08/05/2012 Alcohol dependence in remission (HCC) [F10.21] 08/05/2012 History of substance abuse (HCC) [F19.11] 08/05/2012 Snoring disorder [R06.83] 12/15/2012 Depression [F32.A] 06/11/2022 Right hip pain [M25.551] 08/04/2014 Thoracic myofascial strain [S29.019A] 01/10/2015 Edema of both legs [R60.0] 05/29/2015 Bilateral foot pain [M79.671, M79.672] 07/13/2015 Osteoarthritis of lumbar spine [M47.816] 08/22/2015 Altered bowel habits [R19.4] 10/28/2017 Class 2 obesity due to excess calories with bod*05/11/2018 Biliary dyskinesia [K82.8] 08/24/2018 Obesity, Class I, BMI 30-34.9 [E66.811] 05/23/2019 06/11/2022 Chronic bilateral low back pain with bilateral *09/01/2019 Class 2 obesity due to excess calories without *05/11/2018 11/30/2019 Pulmonary embolism (HCC) [I26.99] 05/29/2023 Mitral valve prolapse [I34.1] 10/22/2023 Class 3 severe obesity due to excess calories w*11/27/2023 Vitamin D deficiency [E55.9] 12/30/2023 Other instructions from your clinician: Take ondansetron as needed for nausea and vomiting. Take Imodium as needed for diarrhea per package directions. Ok to take dicylcomine as needed for diarrhea also Drink sufficient fluids, aim for 64 ounces per day Drink at least 8 ounces of Pedialyte, broth or Gatorade daily or other sports drink until feeling improved. Eat as tolerated, try smaller meals while feeling ill. Try eating saltine crackers, broth soups, starches/cereals (potatoes, noodles, rice, wheat, and oat) with some salt are excellent foods to consider. In addition, crackers, bananas, yogurt, soups, and boiled vegetables are also good choices Let us know if not feeling improved. Go to ER if unable to keep fluids or food down for 24 hours or greater Prescriptions ordered this encounter Disp Refills Start End ONDANSETRON 4 MG DISINTEGRATING TABL* 20 t* 0 09/15/2024 Route: ORAL Sig: Take 1 tablet by mouth every 6 hours as needed. for nausea DICYCLOMINE 10 MG CAPSULE 120 * 3 09/15/2024 Route: ORAL Sig: Take 1 capsule by mouth before meals and at bedtime. Level of Service: OFFICE/OUTPATIENT ESTABLISHED LOW [facility] 20 MIN [[id number]] Additional E/M codes: VISIT CPLX INHERENT EANDM ASSOC WITH MED * Follow-up and Disposition History for Encounter Date Provider Department Center 09/15/2024 [id number], TERRI INTWS [facility] Aura Encounter Status:Closed by ADRIAN LÓPEZ on 09/15/24 PROGRESS Observed: 09/15/2024 12:17 PM Status: COMPLETED Source: [facility] HNO ID: [id number] Author: ADRIAN LÓPEZ APRN.TERMITE TECHNICIAN Service: ? Author Type: Nurse Specialist Type: Progress Notes Filed: 09/15/2024 12:57 Note Text: SUBJECTIVE: Lung Cancer Screening Never done Covid-19 Vaccine( season) due on 07/03/2024 PALLAVI Marshall is a 64 year old female. PMH significant for ACTIVE PROBLEM LIST Lumbar Radiculopathy Ddd (Degenerative Disc Disease), Cervical Ddd (Degenerative Disc Disease), Lumbar Disc Displacement, Lumbar Cervical Disc Displacement Hematuria Chronic Pelvic Pain in Female Urgency of Urination Frequency of Urination Oab (Overactive Bladder) Smoking History Asthma Migraine Mdd (Major Depressive Disorder), Recurrent Episode (Hcc) Alcohol Dependence in Remission ([facility]) History of substance abuse ([facility]) Snoring Disorder Right Hip Pain Thoracic Myofascial Strain Edema of Both Legs Bilateral Foot Pain Osteoarthritis of Lumbar Spine Altered Bowel Habits Class 2 Obesity Due to Excess Calories With Body Mass Index (Bmi) of 38.0 to 38.9 in Adult Biliary Dyskinesia Chronic Bilateral Low Back Pain With Bilateral Sciatica Pulmonary Embolism ([facility]) Mitral Valve Prolapse Class 3 Severe Obesity Due to Excess Calories With Body Mass Index (Bmi) of 40.0 to 44.9 in Adult ([facility]) Vitamin D Deficiency Presents today regarding nausea and diarrhea. She reports this started on Thursday, 4 days ago. Notes she did attend a birthday republican over the weekend but no obvious sick people were encountered. No one with similar symptoms. She woke up Thursday with crampy abdominal pain that felt better with bowel movements, having watery diarrhea 3-6 times per day. No fever. No BRBPR black or tarry stools. Nausea but no vomiting. She did take some Imodium for a while but did not seem like was helping enough. 1-3 doses per day. No recent antibiotic, use no recent hospitalization. Has rissa salamanca in the past per gastroenteology for diarrhea, no current. Review of Systems Respiratory: Negative. Cardiovascular: Negative. Objective BP 121/81 Pulse 91 Temp 37 ?C (98.6 ?F) Resp 16 Wt 98.9 kg (218 lb 0.6 oz) LMP 03/09/2013 BMI 39.56 kg/m? Physical Exam Vitals and nursing note reviewed. Constitutional: Appearance: Normal appearance. HENT: Head: Normocephalic. Right Ear: External ear normal. Left Ear: External ear normal. Mouth/Throat: Lips: [place]. Mouth: Mucous membranes are moist. Pharynx: Oropharynx is clear. Cardiovascular: Rate and Rhythm: Normal rate and regular rhythm. Heart sounds: Normal heart sounds. Pulmonary: Effort: Pulmonary effort is normal. Breath sounds: Normal breath sounds. Abdominal: General: Bowel sounds are normal. There is no distension. Palpations: Abdomen is soft. There is no mass. Tenderness: There is no abdominal tenderness. There is no guarding or rebound. Musculoskeletal: Right lower leg: No edema. Left lower leg: No edema. Skin: General: Skin is warm and dry. Neurological: General: No focal deficit present. Mental Status: She is alert and oriented to person, place, and time. ALLERGIES Allergen Reactions Dilaudid [Hydromorp* Unknown Had dilaudid during surgery once and it led to respiratory depression and very slow breathing - she had slow/difficult emergence from anesthesia d/t this Latex Hives, Swelling, Itching Localized Penicillin G Unknown Penicillins Rash, Itching, Shortness of Breath, Hives MEDICATIONS SPIRIVA RESPIMAT 2.5 mcg/actuation inhaler tiZANidine (ZANAFLEX) 2 mg tablet Take 1 tablet by mouth every 6 hours as needed. clindamycin (CLEOCIN) 300 mg capsule 2 capsules 1 hour prior to dental procedure. gabapentin (NEURONTIN) 300 mg capsule Take 1 capsule by mouth every morning AND 2 capsules daily at bedtime AND 1 capsule every afternoon. Do all this for 180 days. As directed. topiramate (TOPAMAX) 50 mg tablet Take 1 tablet by mouth every morning AND 2 tablets daily at bedtime. SUMAtriptan (IMITREX) 100 mg tablet Take 1 tablet (100 mg) by mouth as needed for migraine headache (see administration instructions). May repeat dose after 2 hours if needed. Maximum daily dose is 200 mg per day.TAKE 1 TABLET BY MOUTH AT ONSET OF HEADACHE MAY REPEAT IN 2 HOURS IF HEADACHE PERSISTS MAXIMUM DAILY DOSE OF 2 TABLETS ( 200 MILLIGRAMS ) EVERY 24 HOURS fluticasone (FLONASE) 50 mcg/actuation nasal spray Use 2 Sprays in each nostril once daily. Rinse mouth after use. albuterol HFA (PROAIR HFA) 90 mcg/actuation inhaler Inhale 2 Puffs as instructed every 4 hours as needed. celecoxib (CELEBREX) 200 mg capsule Take 1 capsule by mouth two times a day. for hip and arthritic pain. Take with food meclizine (ANTIVERT) 25 mg tab 4 TIMES DAILY NEEDED as needed for Dizziness furosemide (LASIX) 20 mg tablet Take 0.5-1 tablets by mouth once daily as needed. for swelling in feet OXYGEN, HOME THERAPY, 3 L/min by Nasal Cannula route as directed. At night ARIPiprazole (ABILIFY) 15 mg tablet Take 1 tablet by mouth once daily. Dr. Rodriguez DULoxetine (CYMBALTA) 20 mg capsule Take 20 mg by mouth twice daily. Nebulizer Accessories kit Provide nebulizer kit. albuterol (PROVENTIL) 2.5 mg /3 mL (0.083 %) nebulizer solution Use 3 mL via nebulizer four times daily as needed for Wheezing/Shortness of Breath. Inhale by nebulizer over 5-15 minutes hydrOXYzine pamoate (VISTARIL) 25 mg capsule Take 2 capsules by mouth four times daily as needed. Dr. Rodriguez ondansetron orally disintegrating (ZOFRAN ODT) 4 mg disintegrating tablet Take 1 tablet by mouth every 6 hours as needed. for nausea dicyclomine (BENTYL) 10 mg capsule Take 1 capsule by mouth before meals and at bedtime. budesonide-formoterol (SYMBICORT) 160-4.5 mcg/actuation inhaler Inhale 2 Puffs as instructed two times a day. (Patient not taking: Reported on 09/15/2024) PAST MEDICAL HISTORY Diagnosis Date Arrhythmia Asthma Blood dyscrasia Cervical disc displacement 04/17/2011 Chronic obstructive pulmonary disease (COPD) ([facility]) Class 2 obesity due to excess calories without serious comorbidity with body mass index (BMI) of 37.0 to 37.9 in adult 05/11/2018 Degenerative disk disease bulging disks Depression Foot fracture, right 2003 Fell off ladder and fractured right foot H/O ETOH abuse In remission/recovery over 10 years (as of 11/2019) Lactose intolerance Lumbar radiculopathy 04/17/2011 Migraine 04/02/2012 Mitral valve prolapse KALPESH (obstructive sleep apnea) 12/15/2012 KALPESH (obstructive sleep apnea) 12/15/2012 SLEEP ARCHITECTURE: PSG 10/05/2012 The study started at 22:34:01 and ended at 06:39:39. Total sleep time was 405 minutes resulting in a sleep efficiency of 92.2% (TRT = 439 m). There were 14 awakenings with a total time awake after sleep onset of 11.0 minutes. The sleep latency was 23.0 minutes and the REM latency was 308 minutes. Snoring Substance abuse (HCC) In remission >10 years (as of 11/2019) Social History Tobacco Use Smoking status: Former Current packs/day: 0.00 Average packs/day: 1 pack/day for 48.8 years (48.8 ttl pk-yrs) Types: Cigarettes Start date: 11/02/1973 Quit date: 08/13/2022 Years since quittin.0 Smokeless tobacco: Never Tobacco comments: Started smoking at age 14, 1ppd. Both parents smokers. Vaping Use Vaping status: Never Used Substance Use Topics Alcohol use: Not Currently Comment: August 27, 2009 quit Drug use: No Comment: past history of cocaine and marijuana- quit 2008 Latest Ref Rng 03/17/2024 WBC 3.70 - 11.00 k/uL 6.06 RBC 3.90 - 5.20 m/uL 4.02 Hemoglobin 11.5 - 15.5 g/dL 12.1 Hematocrit 36.0 - 46.0 % 38.8 MCV 80.0 - 100.0 fL 96.5 MCH 26.0 - 34.0 pg 30.1 MCHC 30.5 - 36.0 g/dL 31.2 RDW-CV 11.5 - 15.0 % 13.2 Platelet Count 150 - 400 k/uL 276 MPV 9.0 - 12.7 fL 10.1 Neut% % 56.9 Abs Neut (ANC) 1.45 - 7.50 k/uL 3.46 Lymph% % 34.2 Abs Lymph 1.00 - 4.00 k/uL 2.07 Billings% % 5.0 Abs Billings <0.87 k/uL 0.30 Eosin% % 2.5 Abs Eosin <0.46 k/uL 0.15 Baso% % 1.2 Abs Baso <0.11 k/uL 0.07 Immature Gran % % 0.2 IMMATURE GRANS (ABS) <0.10 k/uL <0.03 NRBC /100 WBC 0.0 Absolute nRBC <0.01 k/uL <0.01 DTYPE Auto Protein, Total 6.3 - 8.0 g/dL 6.3 Albumin 3.9 - 4.9 g/dL 4.1 Calcium 8.5 - 10.2 mg/dL 9.6 Bilirubin, Total 0.2 - 1.3 mg/dL 0.2 Alkaline Phosphatase 34 - 123 U/L 63 AST 13 - 35 U/L 19 ALT 7 - 38 U/L 19 Glucose 74 - 99 mg/dL 113 (H) BUN 7 - 21 mg/dL 21 Creatinine 0.58 - 0.96 mg/dL 0.60 Sodium 136 - 144 mmol/L 142 Potassium 3.7 - 5.1 mmol/L 4.3 Chloride 97 - 105 mmol/L 106 (H) CO2 22 - 30 mmol/L 25 Anion Gap 9 - 18 mmol/L 11 eGFR >=60 mL/min/1.73m? 101 Hemoglobin A1C 4.3 - 5.6 % 5.2 Estimated Average Glucose mg/dL 103 TSH 0.270 - 4.200 mIU/L 0.988 Vitamin D 25 Hydroxy 31.0 - 80.0 ng/mL 31.6 ASSESSMENT/PLAN: 1. Nausea - ICD9: 787.02, ICD10: R11.0 (primary diagnosis) - ONDANSETRON 4 MG DISINTEGRATING TABLET - C. DIFFICILE PCR 2. Diarrhea, unspecified type - ICD9: 787.91, ICD10: R19.7 - ENTERIC BACTERIAL PANEL BY PCR - C. DIFFICILE PCR - DICYCLOMINE 10 MG CAPSULE Recommend taking Imodium according to package directions. Dicyclomine as needed. Complete stool cultures. Return to clinic on Thursday if not improving. Work excuse provided Advised: Take ondansetron as needed for nausea and vomiting. Take Imodium as needed for diarrhea per package directions. Ok to take dicylcomine as needed for diarrhea also Drink sufficient fluids, aim for 64 ounces per day Drink at least 8 ounces of Pedialyte, broth or Gatorade daily or other sports drink until feeling improved. Eat as tolerated, try smaller meals while feeling ill. Try eating saltine crackers, broth soups, starches/cereals (potatoes, noodles, rice, wheat, and oat) with some salt are excellent foods to consider. In addition, crackers, bananas, yogurt, soups, and boiled vegetables are also good choices Let us know if not feeling improved. Go to ER if unable to keep fluids or food down for 24 hours or greater Adrian López APRN.TERMITE TECHNICIAN Medical Decision Making: Problems: Low: Acute, uncomplicated illness or injury Data: Unique test(s) ordered: 2 Risk: Moderate: Drug management Medical Decision Making Level: 3 - Low CNCO Observed: 09/15/2024 12:00 AM Status: COMPLETED Source: [facility] Letter Text CNPN Observed: 09/05/2024 12:00 AM Status: COMPLETED Source: [facility] Telephone (ORTHWS) YENNY MARSHALL ([id number]) 1960 F Date Time Provider Department 09/05/24 BRADLEY MALONE During your visit today, we recorded the following information about you: Anabell Driver LPN 09/05/2024 8:20 AM Signed Patient called. Verified name and date of . She is asking for antibiotic prior to dental appointment. It is scheduled for today but states she will reschedule for later due to need of the antibiotic. Pharmacy: [facility]. Please review and advise. JULIUS Hernández Sondra, PA-C 09/05/2024 10:21 AM Signed Rx has been sent. Anabell Driver LPN 09/05/2024 10:43 AM Signed Called patient. No answer- left message that order sent to pharmacy but to call clinic for details. JULIUS Hernández Kimberly, LPN 09/05/2024 10:59 AM Signed Patient called. Verified name and date of . Informed of order- verbalizes understanding. Anabell Driver LPN Allergies As of Date: 09/05/2024 Noted Allergy Reaction DILAUDID (HYDROMORPHONE) 10/22/2023 16 - Unknown Comments: Had dilaudid during surgery once and it led to respiratory depression and very slow breathing - she had slow/difficult emergence from anesthesia d/t this LATEX 04/17/2014 4 - Hives 7 - Swelling 9 - Itching Comments: Localized PENICILLIN G 04/22/2011 16 - Unknown PENICILLINS 04/17/2011 2 - Rash 9 - Itching 12 - Shortness of Breath 4 - Hives Date Reviewed: 08/10/2024 Reviewed by: Myriam Ayers LPN - Fully Assessed Reason for Visit: Orders [681] Primary Visit Diagnosis:Status post total right knee replacement [Z96.651] Order(s):clindamycin (CLEOCIN) 300 mg capsule2 capsules 1 hour prior to dental procedure.Disp: 2 capsuleRfl: 3 Prescriptions as of 09/05/2024 - clindamycin (CLEOCIN) 300 mg capsule 2 capsules 1 hour prior to dental procedure. - gabapentin (NEURONTIN) 300 mg capsule Take 1 capsule by mouth every morning AND 2 capsules daily at bedtime AND 1 capsule every afternoon. Do all this for 180 days. As directed. - topiramate (TOPAMAX) 50 mg tablet Take 1 tablet by mouth every morning AND 2 tablets daily at bedtime. - SUMAtriptan (IMITREX) 100 mg tablet Take 1 tablet (100 mg) by mouth as needed for migraine headache (see administration instructions). May repeat dose after 2 hours if needed. Maximum daily dose is 200 mg per day.TAKE 1 TABLET BY MOUTH AT ONSET OF HEADACHE MAY REPEAT IN 2 HOURS IF HEADACHE PERSISTS MAXIMUM DAILY DOSE OF 2 TABLETS ( 200 MILLIGRAMS ) EVERY 24 HOURS - fluticasone (FLONASE) 50 mcg/actuation nasal spray Use 2 Sprays in each nostril once daily. Rinse mouth after use. - albuterol HFA (PROAIR HFA) 90 mcg/actuation inhaler Inhale 2 Puffs as instructed every 4 hours as needed. - celecoxib (CELEBREX) 200 mg capsule Take 1 capsule by mouth two times a day. for hip and arthritic pain. Take with food - meclizine (ANTIVERT) 25 mg tab 4 TIMES DAILY NEEDED as needed for Dizziness - tiZANidine (ZANAFLEX) 2 mg tablet Take 1 tablet by mouth every 6 hours as needed. - furosemide (LASIX) 20 mg tablet Take 0.5-1 tablets by mouth once daily as needed. for swelling in feet - budesonide-formoterol (SYMBICORT) 160-4.5 mcg/actuation inhaler Inhale 2 Puffs as instructed two times a day. - OXYGEN, HOME THERAPY, 3 L/min by Nasal Cannula route as directed. At night - ARIPiprazole (ABILIFY) 15 mg tablet Take 1 tablet by mouth once daily. Dr. Rodriguez - DULoxetine (CYMBALTA) 20 mg capsule Take 20 mg by mouth twice daily. - Nebulizer Accessories kit Provide nebulizer kit. - albuterol (PROVENTIL) 2.5 mg /3 mL (0.083 %) nebulizer solution Use 3 mL via nebulizer four times daily as needed for Wheezing/Shortness of Breath. Inhale by nebulizer over 5-15 minutes - hydrOXYzine pamoate (VISTARIL) 25 mg capsule Take 2 capsules by mouth four times daily as needed. Dr. Rodriguez Meds Comments as of 04/29/2023: April 29, 2023. Patient started new Levaquin Rx today. Disha Tim RN Problem List As Of Date 09/05/2024 Noted Resolved Lumbar radiculopathy [M54.16] 04/17/2011 DDD (degenerative disc disease), cervical [M50.*04/17/2011 DDD (degenerative disc disease), lumbar [M51.36*04/17/2011 Disc displacement, lumbar [M51.26] 04/17/2011 Cervical disc displacement [M50.20] 04/17/2011 Hematuria [R31.9] 11/25/2011 Chronic pelvic pain in female [R10.2, G89.29] 11/25/2011 Urgency of urination [R39.15] 11/25/2011 Frequency of urination [R35.0] 11/25/2011 OAB (overactive bladder) [N32.81] 11/25/2011 Smoking history [Z87.891] 11/25/2011 Asthma [J45.909] Migraine [G43.909] 04/02/2012 MDD (major depressive disorder), recurrent epis*08/05/2012 Alcohol dependence in remission (HCC) [F10.21] 08/05/2012 History of substance abuse (HCC) [F19.11] 08/05/2012 Snoring disorder [R06.83] 12/15/2012 Depression [F32.A] 06/11/2022 Right hip pain [M25.551] 08/04/2014 Thoracic myofascial strain [S29.019A] 01/10/2015 Edema of both legs [R60.0] 05/29/2015 Bilateral foot pain [M79.671, M79.672] 07/13/2015 Osteoarthritis of lumbar spine [M47.816] 08/22/2015 Altered bowel habits [R19.4] 10/28/2017 Class 2 obesity due to excess calories with bod*05/11/2018 Biliary dyskinesia [K82.8] 08/24/2018 Obesity, Class I, BMI 30-34.9 [E66.811] 05/23/2019 06/11/2022 Chronic bilateral low back pain with bilateral *09/01/2019 Class 2 obesity due to excess calories without *05/11/2018 11/30/2019 Pulmonary embolism (HCC) [I26.99] 05/29/2023 Mitral valve prolapse [I34.1] 10/22/2023 Class 3 severe obesity due to excess calories w*11/27/2023 Vitamin D deficiency [E55.9] 12/30/2023 Prescriptions ordered this encounter Disp Refills Start End CLINDAMYCIN HCL 300 MG CAPSULE 2 ca* 3 09/05/2024 Si capsules 1 hour prior to dental procedure. Encounter Status:Closed by ANABELL DRIVER on 09/05/24 PROGRESS Observed: 08/10/2024 5:39 PM Status: COMPLETED Source: [facility] HNO ID: [id number] Author: SOTO RUSHING MD Service: ? Author Type: Physician Type: Progress Notes Filed: 08/10/2024 17:58 Note Text: This note was created using [employer]. Subjective Yenny Marshall is a 64 year old female. Patient presents with: Same Day Appointment: Area left side of nose, under left eye and under nose needing checked due to previous cancer SUBJECTIVE: Yenny Marshall is a 64 year old year old lady here today for appointment for review of medical conditions: skin lesions on face. The patient is a 64-year-old female with a history of basal cell carcinoma, presenting with concerns about recurrent lesions on her face. The patient reports a history of basal cell carcinoma on her face, which was previously excised by a event planning manager, followed by flap surgery by a plastic surgeon. The carcinoma recurred in the same area and was subsequently treated by Dr. Salvador, a plastic surgeon who has since retired. She was advised to seek a referral to the [facility] for further evaluation. She presents today with a new lesion to the left of her nose, erythematous in appearance, that has been present for over 6 weeks. Additionally, she has a lesion on her lip that has been intermittently present for approximately 4 months, described as erythematous, dry, and prone to breaking open and bleeding. She also notes a lesion under her eye that has been present for about 4 weeks, described as a small white spot that occasionally breaks open and bleeds. She denies wearing makeup regularly, only occasionally using blush. She uses sunblock when outside and wears a hat as recommended by her partner, Bobby. She is not currently under routine dermatological surveillance and has not been following up with a event planning manager since Dr. Salvador's long term. She expresses a desire to establish care with a event planning manager for routine screenings and to address other skin concerns. PAST MEDICAL HISTORY Diagnosis Date Arrhythmia Asthma Blood dyscrasia Cervical disc displacement 04/17/2011 Chronic obstructive pulmonary disease (COPD) ([facility]) Class 2 obesity due to excess calories without serious comorbidity with body mass index (BMI) of 37.0 to 37.9 in adult 05/11/2018 Degenerative disk disease bulging disks Depression Foot fracture, right 2003 Fell off ladder and fractured right foot H/O ETOH abuse In remission/recovery over 10 years (as of 11/2019) Lactose intolerance Lumbar radiculopathy 04/17/2011 Migraine 04/02/2012 Mitral valve prolapse KALPESH (obstructive sleep apnea) 12/15/2012 KALPESH (obstructive sleep apnea) 12/15/2012 SLEEP ARCHITECTURE: PSG 10/05/2012 The study started at 22:34:01 and ended at 06:39:39. Total sleep time was 405 minutes resulting in a sleep efficiency of 92.2% (TRT = 439 m). There were 14 awakenings with a total time awake after sleep onset of 11.0 minutes. The sleep latency was 23.0 minutes and the REM latency was 308 minutes. Snoring Substance abuse (HCC) In remission >10 years (as of 11/2019) Current Outpatient Medications Medication Sig topiramate (TOPAMAX) 50 mg tablet Take 1 tablet by mouth every morning AND 2 tablets daily at bedtime. SUMAtriptan (IMITREX) 100 mg tablet Take 1 tablet (100 mg) by mouth as needed for migraine headache (see administration instructions). May repeat dose after 2 hours if needed. Maximum daily dose is 200 mg per day.TAKE 1 TABLET BY MOUTH AT ONSET OF HEADACHE MAY REPEAT IN 2 HOURS IF HEADACHE PERSISTS MAXIMUM DAILY DOSE OF 2 TABLETS ( 200 MILLIGRAMS ) EVERY 24 HOURS fluticasone (FLONASE) 50 mcg/actuation nasal spray Use 2 Sprays in each nostril once daily. Rinse mouth after use. albuterol HFA (PROAIR HFA) 90 mcg/actuation inhaler Inhale 2 Puffs as instructed every 4 hours as needed. celecoxib (CELEBREX) 200 mg capsule Take 1 capsule by mouth two times a day. for hip and arthritic pain. Take with food meclizine (ANTIVERT) 25 mg tab 4 TIMES DAILY NEEDED as needed for Dizziness gabapentin (NEURONTIN) 300 mg capsule Take 1 capsule by mouth every morning AND 2 capsules daily at bedtime AND 1 capsule every afternoon. Do all this for 180 days. As directed. tiZANidine (ZANAFLEX) 2 mg tablet Take 1 tablet by mouth every 6 hours as needed. furosemide (LASIX) 20 mg tablet Take 0.5-1 tablets by mouth once daily as needed. for swelling in feet budesonide-formoterol (SYMBICORT) 160-4.5 mcg/actuation inhaler Inhale 2 Puffs as instructed two times a day. OXYGEN, HOME THERAPY, 3 L/min by Nasal Cannula route as directed. At night ARIPiprazole (ABILIFY) 15 mg tablet Take 1 tablet by mouth once daily. Dr. Rodriguez DULoxetine (CYMBALTA) 20 mg capsule Take 20 mg by mouth twice daily. Nebulizer Accessories kit Provide nebulizer kit. albuterol (PROVENTIL) 2.5 mg /3 mL (0.083 %) nebulizer solution Use 3 mL via nebulizer four times daily as needed for Wheezing/Shortness of Breath. Inhale by nebulizer over 5-15 minutes hydrOXYzine pamoate (VISTARIL) 25 mg capsule Take 2 capsules by mouth four times daily as needed. Dr. Rodriguez No current facility-administered medications for this visit. Review of Systems Objective BP 108/62 Pulse 87 Temp 36.5 ?C (97.7 ?F) Resp 16 Wt 96.3 kg (212 lb 4.9 oz) LMP 03/09/2013 SpO2 97% BMI 38.52 kg/m? Physical Exam HENT: Head: Comments: See pictures under images for lesions seen under left eye, left of nose and above lip on right Assessment and Plan # Skin lesion of cheek (L98.9) # Skin lesion of face (L98.9) - Lesions present on the left cheek, left of the nose, and above the lip; durations of approximately four weeks, six weeks, and four months, respectively. - Lesions exhibit intermittent bleeding and color changes. - Captured images of the lesions and uploaded to the patient's chart. - Referral to dermatology at [facility] for evaluation and management. # History of basal cell cancer (Z85.828) - Previous basal cell carcinoma excised from the face, requiring flap surgery and subsequent plastic surgery by Dr. Salvador. - Discussed the potential for Mohs surgery depending on the evaluation by dermatology. - Advised establishing routine dermatological follow-up for regular skin screenings. I spent a total of 18 minutes on the date of the service which included [id number] patient care, completing clinical documentation, obtaining and/or reviewing separately obtained history, and performing a medically appropriate examination. Soto Rushing MD CNOV Observed: 08/10/2024 4:40 PM Status: COMPLETED Source: [facility] Office Visit (INTMWS) YENNY MARSHALL ([id number]) 1960 F Date Time Provider Department 08/10/24 4:40 PM SOTO RUSHING INTMWS During your visit today, we recorded the following information about you: Temperature Pulse Respiration Blood pressure 97.7 degrees 87/minute 16/minute 108/62 Weight 96.3 kg Soto Rushing MD 08/10/2024 5:58 PM Signed This note was created using [employer]. Subjective Yenny Marshall is a 64 year old female. Patient presents with: Same Day Appointment: Area left side of nose, under left eye and under nose needing checked due to previous cancer SUBJECTIVE: Yenny Marshall is a 64 year old year old lady here today for appointment for review of medical conditions: skin lesions on face. The patient is a 64-year-old female with a history of basal cell carcinoma, presenting with concerns about recurrent lesions on her face. The patient reports a history of basal cell carcinoma on her face, which was previously excised by a event planning manager, followed by flap surgery by a plastic surgeon. The carcinoma recurred in the same area and was subsequently treated by Dr. Salvador, a plastic surgeon who has since retired. She was advised to seek a referral to the [facility] for further evaluation. She presents today with a new lesion to the left of her nose, erythematous in appearance, that has been present for over 6 weeks. Additionally, she has a lesion on her lip that has been intermittently present for approximately 4 months, described as erythematous, dry, and prone to breaking open and bleeding. She also notes a lesion under her eye that has been present for about 4 weeks, described as a small white spot that occasionally breaks open and bleeds. She denies wearing makeup regularly, only occasionally using blush. She uses sunblock when outside and wears a hat as recommended by her partner, Bobby. She is not currently under routine dermatological surveillance and has not been following up with a event planning manager since Dr. Salvador's long term. She expresses a desire to establish care with a event planning manager for routine screenings and to address other skin concerns. PAST MEDICAL HISTORY Diagnosis Date Arrhythmia Asthma Blood dyscrasia Cervical disc displacement 04/17/2011 Chronic obstructive pulmonary disease (COPD) ([facility]) Class 2 obesity due to excess calories without serious comorbidity with body mass index (BMI) of 37.0 to 37.9 in adult 05/11/2018 Degenerative disk disease bulging disks Depression Foot fracture, right 2003 Fell off ladder and fractured right foot H/O ETOH abuse In remission/recovery over 10 years (as of 11/2019) Lactose intolerance Lumbar radiculopathy 04/17/2011 Migraine 04/02/2012 Mitral valve prolapse KALPESH (obstructive sleep apnea) 12/15/2012 KALPESH (obstructive sleep apnea) 12/15/2012 SLEEP ARCHITECTURE: PSG 10/05/2012 The study started at 22:34:01 and ended at 06:39:39. Total sleep time was 405 minutes resulting in a sleep efficiency of 92.2% (TRT = 439 m). There were 14 awakenings with a total time awake after sleep onset of 11.0 minutes. The sleep latency was 23.0 minutes and the REM latency was 308 minutes. Snoring Substance abuse (HCC) In remission >10 years (as of 11/2019) Current Outpatient Medications Medication Sig topiramate (TOPAMAX) 50 mg tablet Take 1 tablet by mouth every morning AND 2 tablets daily at bedtime. SUMAtriptan (IMITREX) 100 mg tablet Take 1 tablet (100 mg) by mouth as needed for migraine headache (see administration instructions). May repeat dose after 2 hours if needed. Maximum daily dose is 200 mg per day.TAKE 1 TABLET BY MOUTH AT ONSET OF HEADACHE MAY REPEAT IN 2 HOURS IF HEADACHE PERSISTS MAXIMUM DAILY DOSE OF 2 TABLETS ( 200 MILLIGRAMS ) EVERY 24 HOURS fluticasone (FLONASE) 50 mcg/actuation nasal spray Use 2 Sprays in each nostril once daily. Rinse mouth after use. albuterol HFA (PROAIR HFA) 90 mcg/actuation inhaler Inhale 2 Puffs as instructed every 4 hours as needed. celecoxib (CELEBREX) 200 mg capsule Take 1 capsule by mouth two times a day. for hip and arthritic pain. Take with food meclizine (ANTIVERT) 25 mg tab 4 TIMES DAILY NEEDED as needed for Dizziness gabapentin (NEURONTIN) 300 mg capsule Take 1 capsule by mouth every morning AND 2 capsules daily at bedtime AND 1 capsule every afternoon. Do all this for 180 days. As directed. tiZANidine (ZANAFLEX) 2 mg tablet Take 1 tablet by mouth every 6 hours as needed. furosemide (LASIX) 20 mg tablet Take 0.5-1 tablets by mouth once daily as needed. for swelling in feet budesonide-formoterol (SYMBICORT) 160-4.5 mcg/actuation inhaler Inhale 2 Puffs as instructed two times a day. OXYGEN, HOME THERAPY, 3 L/min by Nasal Cannula route as directed. At night ARIPiprazole (ABILIFY) 15 mg tablet Take 1 tablet by mouth once daily. Dr. Rodriguez DULoxetine (CYMBALTA) 20 mg capsule Take 20 mg by mouth twice daily. Nebulizer Accessories kit Provide nebulizer kit. albuterol (PROVENTIL) 2.5 mg /3 mL (0.083 %) nebulizer solution Use 3 mL via nebulizer four times daily as needed for Wheezing/Shortness of Breath. Inhale by nebulizer over 5-15 minutes hydrOXYzine pamoate (VISTARIL) 25 mg capsule Take 2 capsules by mouth four times daily as needed. Dr. Rodriguez No current facility-administered medications for this visit. Review of Systems Objective BP 108/62 Pulse 87 Temp 36.5 ?C (97.7 ?F) Resp 16 Wt 96.3 kg (212 lb 4.9 oz) LMP 03/09/2013 SpO2 97% BMI 38.52 kg/m? Physical Exam HENT: Head: Comments: See pictures under images for lesions seen under left eye, left of nose and above lip on right Assessment and Plan # Skin lesion of cheek (L98.9) # Skin lesion of face (L98.9) - Lesions present on the left cheek, left of the nose, and above the lip; durations of approximately four weeks, six weeks, and four months, respectively. - Lesions exhibit intermittent bleeding and color changes. - Captured images of the lesions and uploaded to the patient's chart. - Referral to dermatology at [facility] for evaluation and management. # History of basal cell cancer (Z85.828) - Previous basal cell carcinoma excised from the face, requiring flap surgery and subsequent plastic surgery by Dr. Salvador. - Discussed the potential for Mohs surgery depending on the evaluation by dermatology. - Advised establishing routine dermatological follow-up for regular skin screenings. I spent a total of 18 minutes on the date of the service which included [id number] patient care, completing clinical documentation, obtaining and/or reviewing separately obtained history, and performing a medically appropriate examination. MD Maribel Pickett Liza D, MD 08/10/2024 5:56 PM Signed -A referral to dermatology at the [facility] has been placed for evaluation of your skin lesions. - Continue to use sunblock and wear a hat when outside to protect your skin. - Monitor your skin lesions and note any changes or new growths. - Contact your insurance provider to confirm coverage for the dermatology consultation and any potential procedures. Soto Rushing MD 08/10/2024 6:37 PM Signed Addended by: SOTO RUSHING on: 08/10/2024 06:37 PM Modules accepted: Orders Referring Provider: SELF [200] Allergies As of Date: 08/10/2024 Noted Allergy Reaction DILAUDID (HYDROMORPHONE) 10/22/2023 16 - Unknown Comments: Had dilaudid during surgery once and it led to respiratory depression and very slow breathing - she had slow/difficult emergence from anesthesia d/t this LATEX 04/17/2014 4 - Hives 7 - Swelling 9 - Itching Comments: Localized PENICILLIN G 04/22/2011 16 - Unknown PENICILLINS 04/17/2011 2 - Rash 9 - Itching 12 - Shortness of Breath 4 - Hives Date Reviewed: 08/10/2024 Reviewed by: Myriam Ayers LPN - Fully Assessed Reason for Visit: Same Day Appointment [255] Cmt: Area left side of nose, under left eye and under nose needing checked due to previous cancer Primary Visit Diagnosis:Skin lesion of cheek [L98.9] Comment:Left side of nose Other Visit Diagnoses:Skin lesion of face [L98.9] Comment:One under left eye and one above right lip History of basal cell cancer [Z85.828] Order(s):CONSULT TO DERMATOLOGY [9006] Order #: [id number]: 1 FUTURE Prescriptions as of 08/10/2024 - topiramate (TOPAMAX) 50 mg tablet Take 1 tablet by mouth every morning AND 2 tablets daily at bedtime. - SUMAtriptan (IMITREX) 100 mg tablet Take 1 tablet (100 mg) by mouth as needed for migraine headache (see administration instructions). May repeat dose after 2 hours if needed. Maximum daily dose is 200 mg per day.TAKE 1 TABLET BY MOUTH AT ONSET OF HEADACHE MAY REPEAT IN 2 HOURS IF HEADACHE PERSISTS MAXIMUM DAILY DOSE OF 2 TABLETS ( 200 MILLIGRAMS ) EVERY 24 HOURS - fluticasone (FLONASE) 50 mcg/actuation nasal spray Use 2 Sprays in each nostril once daily. Rinse mouth after use. - albuterol HFA (PROAIR HFA) 90 mcg/actuation inhaler Inhale 2 Puffs as instructed every 4 hours as needed. - celecoxib (CELEBREX) 200 mg capsule Take 1 capsule by mouth two times a day. for hip and arthritic pain. Take with food - meclizine (ANTIVERT) 25 mg tab 4 TIMES DAILY NEEDED as needed for Dizziness - gabapentin (NEURONTIN) 300 mg capsule Take 1 capsule by mouth every morning AND 2 capsules daily at bedtime AND 1 capsule every afternoon. Do all this for 180 days. As directed. - tiZANidine (ZANAFLEX) 2 mg tablet Take 1 tablet by mouth every 6 hours as needed. - furosemide (LASIX) 20 mg tablet Take 0.5-1 tablets by mouth once daily as needed. for swelling in feet - budesonide-formoterol (SYMBICORT) 160-4.5 mcg/actuation inhaler Inhale 2 Puffs as instructed two times a day. - OXYGEN, HOME THERAPY, 3 L/min by Nasal Cannula route as directed. At night - ARIPiprazole (ABILIFY) 15 mg tablet Take 1 tablet by mouth once daily. Dr. Rodriguez - DULoxetine (CYMBALTA) 20 mg capsule Take 20 mg by mouth twice daily. - Nebulizer Accessories kit Provide nebulizer kit. - albuterol (PROVENTIL) 2.5 mg /3 mL (0.083 %) nebulizer solution Use 3 mL via nebulizer four times daily as needed for Wheezing/Shortness of Breath. Inhale by nebulizer over 5-15 minutes - hydrOXYzine pamoate (VISTARIL) 25 mg capsule Take 2 capsules by mouth four times daily as needed. Dr. Rodriguez Meds Comments as of 04/29/2023: April 29, 2023. Patient started new Levaquin Rx today. Disha Tim RN Problem List As Of Date 08/10/2024 Noted Resolved Lumbar radiculopathy [M54.16] 04/17/2011 DDD (degenerative disc disease), cervical [M50.*04/17/2011 DDD (degenerative disc disease), lumbar [M51.36*04/17/2011 Disc displacement, lumbar [M51.26] 04/17/2011 Cervical disc displacement [M50.20] 04/17/2011 Hematuria [R31.9] 11/25/2011 Chronic pelvic pain in female [R10.2, G89.29] 11/25/2011 Urgency of urination [R39.15] 11/25/2011 Frequency of urination [R35.0] 11/25/2011 OAB (overactive bladder) [N32.81] 11/25/2011 Smoking history [Z87.891] 11/25/2011 Asthma [J45.909] Migraine [G43.909] 04/02/2012 MDD (major depressive disorder), recurrent epis*08/05/2012 Alcohol dependence in remission (HCC) [F10.21] 08/05/2012 History of substance abuse (HCC) [F19.11] 08/05/2012 Snoring disorder [R06.83] 12/15/2012 Depression [F32.A] 06/11/2022 Right hip pain [M25.551] 08/04/2014 Thoracic myofascial strain [S29.019A] 01/10/2015 Edema of both legs [R60.0] 05/29/2015 Bilateral foot pain [M79.671, M79.672] 07/13/2015 Osteoarthritis of lumbar spine [M47.816] 08/22/2015 Altered bowel habits [R19.4] 10/28/2017 Class 2 obesity due to excess calories with bod*05/11/2018 Biliary dyskinesia [K82.8] 08/24/2018 Obesity, Class I, BMI 30-34.9 [E66.811] 05/23/2019 06/11/2022 Chronic bilateral low back pain with bilateral *09/01/2019 Class 2 obesity due to excess calories without *05/11/2018 11/30/2019 Pulmonary embolism (HCC) [I26.99] 05/29/2023 Mitral valve prolapse [I34.1] 10/22/2023 Class 3 severe obesity due to excess calories w*11/27/2023 Vitamin D deficiency [E55.9] 12/30/2023 Other instructions from your clinician: -A referral to dermatology at the [facility] has been placed for evaluation of your skin lesions. - Continue to use sunblock and wear a hat when outside to protect your skin. - Monitor your skin lesions and note any changes or new growths. - Contact your insurance provider to confirm coverage for the dermatology consultation and any potential procedures. Level of Service: OFFICE/OUTPATIENT ESTABLISHED [facility] 10 MIN [02239] Additional E/M codes: VISIT CPLX INHERENT EANDM ASSOC WITH MED * Follow-up and Disposition History for Encounter Date Provider Department Center 08/10/2024 [id number] RUSHING INTWS [facility] Aura Encounter Status:Closed by SOTO RUSHING on 08/10/24 ALLERGIES DATE TYPE / CODE NAME / CODE REACTION SEVERITY SOURCE 10/22/2023 DRUG INGREDI/[id number](S NOMED CT) HYDROMORPHONE UNKNOWN [facility] 04/17/2014 DRUG INGREDI/[id number](S NOMED CT) LATEX HIVES [facility] 04/22/2011 DRUG INGREDI/[id number](S NOMED CT) PENICILLIN G UNKNOWN [facility] 04/17/2011 Drug Class/[id number](SNO MED CT) PENICILLINS RASH [facility] ENCOUNTERS ADMIT/DISCHARGE ACCOUNT NUMBER ADMITTING ENCOUNTER CLASS LOC ATION SOURCE 07/28/2025/ 5 [id number] Ambulatory [facility] 05/08/2025/ 5 [id number] [facility] 04/18/2025 [id number] Ambulatory [facility] ing:[facility] 04/18/2025/ 5 [id number] Ambulatory [facility] 04/05/2025/ 5 [id number] Ambulatory [facility] Hospital[facility] ing:[facility] 03/30/2025 [id number] Ambulatory [facility] ing:[facility] 03/30/2025/ 5 [id number] Ambulatory [facility] ing:[facility] 03/14/2025/ 5 [id number] Ambulatory [facility] HospitalBuild ing:WOIA [facility] 01/19/2025/ 5 [id number] Ambulatory [facility] HospitalBuild ing:SHANNAN [facility] 01/04/2025/ 5 [id number] Ambulatory [facility] HospitalBuild ing:SHANNAN [facility] 01/02/2025/ 5 [id number] Ambulatory [facility] HospitalBuild ing:SHANNAN [facility] 12/21/2024/ 5 [id number] Ambulatory [facility] HospitalBuild ing:WOEH [facility] 12/19/2024/ 5 [id number] Ambulatory [facility] HospitalBuild ing:WOLB [facility] 10/03/2024/ 4 [id number] Ambulatory [facility] HospitalBuild ing:WODM [facility] 09/19/2024/ 4 [id number] Ambulatory [facility] HospitalBuild ing:SHANNAN [facility] 09/15/2024/ 4 [id number] Ambulatory [facility] HospitalBuild ing:SHANNAN [facility] 09/15/2024 [id number] Ambulatory [facility] HospitalBuild ing:WOUC [facility] 08/10/2024/ 4 [id number] Ambulatory [facility] HospitalBuild ing:SHANNAN [facility] PAYERS ENCOUNTER GUARANTOR PAYER SUBSCRIBER SOURCE 07/28/2025 Primary Insuranc e:[employer] MEDICARE HMOPolicy Number: [id number] Date:3647-97-27Nmno Name:Sisi SWEET: [id number] [place] [address] [facility] 05/08/2025 Primary Insuranc e:[employer] MEDICARE HMOPolicy Number: [id number] Date:9080-79-37Urox Name:Sisi SWEET: [id number] [place] [address] [facility] 04/18/2025 Primary Insuranc e:[facility] MEDICARE HMOPolicy Number: [id number] Date:6709-76-60Fhxq Name:Ssii COUGHLINPAULIEStephania Jeff LLANOSB: [id number] [place] [address] [facility] 04/18/2025 Primary Insuranc e:[facility] MEDICARE HMOPolicy Number: [id number] Date:6874-58-19Pmsi Name:Sisi COUGHLINPAULIEStephania Jeff LLANOSB: [id number] [place] [address] [facility] 04/05/2025 Primary Insuranc e:[facility] MEDICARE HMOPolicy Number: [id number] Date:8883-41-93Uifk Name:Sisi LLANOSB: [id number] [place] [address] [facility] 03/30/2025 Primary Insuranc e:[facility] MEDICARE OPolicy Number: [id number] Date:6236-47-98Uxlt Name:Sisi LLANOSB: [id number] [place] [address] [facility] 03/30/2025 Primary Insuranc e:[facility] MEDICARE HMOPolicy Number: [id number] Date:3278-99-64Krel Name:Sisi LLANOSB: [id number] [place] [address] [facility] 03/14/2025 Primary Insuranc e:[facility] MEDICARE HMOPolicy Number: [id number] Date:8068-95-47Wual Name:Sisi LLANOSB: [id number] [place] [address] [facility] 01/19/2025 Primary Insuranc e:[employer] MEDICARE ADVANTAGE HMOPolicy Number: [id number] Date:1007-50-64Yizu Name:Sisi LLANOSB: [id number] [place] [address] [facility] 01/04/2025 Primary Insuranc e:[facility] MEDICARE ADVANTAGE HMOPolicy Number: [id number] Date:6893-18-13Hirh Name:Sisi Aguilar GERARDOERDOB: [id number] [place] [address] [facility] 01/02/2025 Primary Insuranc e:[facility] MEDICARE ADVANTAGE HMOPolicy Number: [id number] Date:8370-84-11Eoko Name:Sisi Aguilar VIETB: [id number] [place] [address] [facility] 12/21/2024 Primary Insuranc e:[facility] DUAL COMPLETE HMO POS SNPPolicy Number: [id number] Date:9283-19-30Tiut Name:Sisi Aguilar VIETB: [id number] [place] [address] [facility] 12/19/2024 Primary Insuranc e:[facility] DUAL COMPLETE HMO POS SNPPolicy Number: [id number] Date:6300-28-57Dxii Name:Sisi Aguilar VIETB: [id number] [place] [address] [facility] 10/03/2024 Primary Insuranc e:[employer] [place] MEDICAREPolicy Number: [id number] Date:0443-93-20Momf Name:Sisi Aguilar GERARDOERDOB: [id number] [place] [address] [facility] 10/03/2024 Secondary Insurance[facility] MEDICAIDPolicy Number: [id number] Date:2833-62-33Fstd Name:Paloma Aguilar GERARDOERDOB: [id number] [place] [address] [facility] 09/19/2024 Primary Insuranc e:JIM CAREURCE MEDICAREPolicy Number: [id number] Date:3888-59-03Hrja Name:Sisi CARRILLOERDOB: [id number] [place] [address] [facility] 09/19/2024 Secondary Insurance:[facility] MEDICAIDPolicy Number: [id number] Date:1306-86-42Nlev Name:Paloma CARRILLOERDOB: [id number] [place] [address] [facility] 09/15/2024 Primary Insuranc e:[employer] [place] MEDICAREPolicy Number: [id number] Date:2246-86-95Hyic Name:Sisi CARRILLOERDOB: [id number] [place] [address] [facility] 09/15/2024 Secondary Insurance:[facility] MEDICAIDPolicy Number: [id number] Date:2393-32-33Eoyj Name:Paloma CARRILLOERDOB: [id number] [place] [address] [facility] 09/15/2024 Primary Insuranc e:JIM [place] MEDICAREPolicy Number: [id number] Date:2148-20-80Mukk Name:Sisi CARRILLOERDOB: [id number] [place] [address] [facility] 09/15/2024 Secondary Insurance:[facility] MEDICAIDPolicy Number: [id number] Date:3702-18-74Tbez Name:Paloma PENAISMERDOB: [id number] [place] [address] [facility] 08/10/2024 Primary Insuranc e:[employer] MEDICAREPolicy Number: [id number] Date:0105-31-80Vzfc Name:Sisi CARRILLOERDOB: [id number] [place] [address] [facility] 08/10/2024 Secondary Insurance:[employer] MEDICAIDPolicy Number: [id number] Date:2701-32-69Uqus Name:Paloma SWEET: [id number] [place] [address] [facility]
--- NOTE | 2025-07-31 12:36 | CT_ITS ---
PROCEDURE: LOW DOSE CT LUNG SCREENING 07/31/2025 REASON FOR EXAM: SMOKER TECHNIQUE: Procedure Code: CTLUNGSCREEN Modality: CT Procedure: LOW DOSE CT LUNG SCREENING Coronal and Sagittal reconstruction series were provided. One or more dose reduction techniques were used (e.g., Automated exposure control, adjustment of the mA and/or kV according to patient size, use of iterative reconstruction technique). REFERENCE LINK: [employer] Lung-RADS RADIATION DOSE SUMMARY: CTDlvol: 4.02 mGy DLP: 123.86 mGycm COMPARISON: CTA chest, 04/10/2025 FINDINGS: PULMONARY NODULES: (Only nodules >3mm are reported) Lower neck:There is a 1.4 cm in diameter nodule in the lower pole of the left thyroid lobe. There is no supraclavicular lymphadenopathy. Mediastinum:There are few stable reactive mediastinal lymph nodes. Heart and thoracic aorta:The heart size is normal. There is minimal calcific vascular disease of the coronary arteries and thoracic aorta. Esophagus:Normal. Upper Abdomen:Multiple small cysts in the visualized liver. Chest wall:The soft tissues of the chest wall appear unremarkable. There is no axillary lymphadenopathy. There is [id number] multilevel degenerative disc disease of the thoracic and upper lumbar spine. There is mild dextroscoliosis of the thoracic spine. Lungs, airways and pleura: There is stable parenchymal scarring in both lung apices. There is stable pleural-parenchymal scarring in the middle lobe of the right lung in the inferior segment of the lingula. The ground-glass opacities seen in the right lung on the prior exam have cleared. There are no pleural effusions. CT/Low Dose CT Lung Screening IMPRESSION: 1. There are no pulmonary nodules or masses. 2. Scarring in both lung apices, the middle lobe of the right lung in the infe rior segment of the lingula. 3. Minimal calcific vascular disease. Lung-RADS Category: 1 S: Negative. Other Significant Findings: Calcific vascular disease. Recommendation: Follow-up low-dose chest CT in 12 months. Reading Location: [place] [address]
== END | disposition home or self-care (01) ==
PROVIDERS: PCP Internal Medicine; Referring Provider Nurse Practitioner Acute Care; Visit Provider Nurse Practitioner Acute Care
DX: F17.210 Nicotine dependence, cigarettes, uncomplicated (principal)
CPT/HCPCS: 71271